=== PATIENT | female | born 1945 | race Caucasian/White ===

== ENCOUNTER 2016-06-20 07:10 | Inpatient (IN) | payer OTHER ==
[2016-06-02 09:28] VITALS: BMI 40.0
--- NOTE | 2016-06-02 10:08 | PAT Medication Instructions ---
Service Date Jun 02, 2016. Current Home Medication List Amlodipine (Norvasc), 2.5 MG PO QAM Aspirin (Aspirin Ec), 81 MG PO QPM Atorvastatin (Atorvastatin Calcium), 40 MG PO QPM Biotin (Biotin 5000), 2 CAP PO QPM Chlorthalidone (Chlorthalidone), 25 MG PO QAM Cholecalciferol (Vitamin D3), 1 TAB PO QPM Levothyroxine Sodium (Levothyroxine Sodium), 112 MG PO DAILYBB Lisinopril (Prinivil), 40 MG PO QAM Magnesium Oxide (Mag-Ox), 400 MG PO QPM Metoprolol Succinate (Toprol Xl), 25 MG PO HS Metoprolol Succinate (Toprol Xl), 50 MG PO QAM Multivitamin (Multivitamin), 1 TAB PO QPM Nitroglycerin (Nitrostat), 0.4 MG UT PRN Pyridoxine (Vitamin B6), 100 MG PO QPM Sennosides-Docusate Sodium (Stool Softener), 1 TAB PO DAILY PRN for Constipation Venlafaxine Hcl (Effexor), 150 MG PO QAM [Lovaza], 4 TAB PO QPM Medication Instructions For Your Scheduled Surgery - Instructions to be given by surgeon/Cardiology: Aspirin (Aspirin Ec), 81 MG PO QPM - Continue as directed: Nitroglycerin (Nitrostat), 0.4 MG UT PRN - Hold the following medications 2 weeks prior to surgery: Biotin (Biotin 5000), 2 CAP PO QPM - Hold the following medications the morning of surgery: Chlorthalidone (Chlorthalidone), 25 MG PO QAM Lisinopril (Prinivil), 40 MG PO QAM Sennosides-Docusate Sodium (Stool Softener), 1 TAB PO DAILY PRN for Constipation - Take the following medications the morning of surgery with a sip of water OTHERWISE NOTHING TO EAT OR DRINK AFTER MIDNIGHT: Amlodipine (Norvasc), 2.5 MG PO QAM Levothyroxine Sodium (Levothyroxine Sodium), 112 MG PO DAILY Metoprolol Succinate (Toprol Xl), 50 MG PO QAM Venlafaxine Hcl (Effexor), 150 MG PO QAM - Take the following medications as scheduled the night before surgery: Magnesium Oxide (Mag-Ox), 400 MG PO QPM Atorvastatin (Atorvastatin Calcium), 40 MG PO QPM Metoprolol Succinate (Toprol Xl), 25 MG PO HS Multivitamin (Multivitamin), 1 TAB PO QPM Pyridoxine (Vitamin B6), 100 MG PO QPM Cholecalciferol (Vitamin D3), 1 TAB PO QPM [Lovaza], 4 TAB PO QPM If you have any questions please call us at [phone] or [phone] or [phone]
[2016-06-02 10:34] LABS: BASO % 0.7 %; BASO ABS # 0.04 K/uL (0-0.2); COMPLETE YES; EOS % 0.2 %; HEMATOCRIT 38.4 % (37-47); IG% 0.2 %; LYMPH % 38.1 %; LYMPH ABS # 2.14 K/uL (1.2-3.4); MEAN CELL VOLUME 91.2 fL (80-100); MEAN CORPUSCULAR HEMOGLOBIN 31.4 pg (25-34); MEAN CORPUSCULAR HGB CONC 34.4 g/dl (32-36); MEAN PLATELET VOLUME 10.3 fL (7.4-10.4); MONO % 8.9 %; NEUT % 51.9 %; PLATELET COUNT 228 K/uL (130-400); RED BLOOD COUNT 4.21 M/uL (4.2-5.4); WHITE BLOOD COUNT 5.62 K/uL (4.8-10.8)
[2016-06-02 10:44] LABS: URINE APPEARANCE CLEAR (CLEAR); URINE BILIRUBIN NEG (NEG); URINE COLOR YELLOW; URINE NITRITE NEG (NEG); URINE PH 5.5 (4.5-7.5); URINE SPECIFIC GRAVITY 1.015 (1.000-1.030); UROBILINOGEN NEG (NEG)
[2016-06-02 10:46] LABS: MANUAL MICROSCOPIC REQUIRED? NO; REVIEW REQ? NO
[2016-06-02 11:00] LABS: BUN/CREATININE RATIO 25.3 (10-20); CALCIUM 9.5 mg/dl (8.5-10.1); CREATININE 0.91 mg/dl (0.60-1.20); POTASSIUM 4.3 mmol/L (3.5-5.1)
--- NOTE | 2016-06-02 11:07 | DIAGNOSTIC IMAGING REPORT ---
TWO VIEW CHEST CLINICAL HISTORY: Preoperative examination. FINDINGS: PA and lateral chest radiographs are compared to study dated 10/13/2011. The heart is top normal for projection and there is atherosclerotic calcification of the thoracic aorta. Chronic interstitial thickening is similar to previous. No airspace consolidation or pleural effusion is identified. There is no pneumothorax. The skeletal structures are osteopenic. Degenerative change and scoliosis are noted in the thoracic spine. There is hyperkyphosis with evidence of DISH. Fusion hardware is present in the upper lumbar region. IMPRESSION: There is no active disease in the chest. Electronically signed by: Manoj Burns M.D. 06/02/2016 11:05 AM Dictated Date/Time: 06/02/2016 11:04 AM
[2016-06-20] VITALS (11 sets, daily range): BP systolic 119–163; BP diastolic 73–85; PULSE 65–94; TEMP 36.3–36.7; O2SAT 93–100; Ht 149.9 cm; Wt 91.2 kg
[~2016-06-20] VITALS: Ht 149.9 cm; Wt 91.2 kg
[~2016-06-20 07:10] MED LIST: AMLO2.5T PO; ASPI81TA28 PO; BIOTCAP2 PO; CEFAZOLIN 2000 MG/60 ML D5W IV SCH; CHOL20007 PO; CeleBREX 200 MG CAP PO SCH; DEXAMETHASONE SOD INJ 4 MG/ML VIAL ONE; EFF75 PO; FENTANYL CITRATE INJ 50 MCG/1 ML 2 ML VIAL ONE; HYG25 PO; LACTATED RINGER'S 1000ML 1,000 ML IV SCH; LEVO112T4 PO; LIDOCAINE HCL 2% 2 ML VIAL (20MG/ML) ONE; LISI40TA PO; LOVAZA PO; LPT40 PO; MAGN400T6 PO; METO1TAB31 PO; METO1TAB66 PO; MIDAZOLAM HCL 1 MG/ML 2ML VIAL ONE; MULT-506 PO; NTRGSL/4 UT; ONDANSETRON INJ 2 MG/ML 2 ML VIAL ONE; PREGABALIN 75 MG CAP PO SCH; PROPOFOL IV EMULSION 10 MG/ML 100 ML VIAL IV ONE; PROPOFOL IV EMULSION 10 MG/ML 20 ML VIAL IV ONE; PYRI100T4 PO; REMIFENTANIL 1 MG VIAL ONE; SENNTAB23 PO; SUCCINYLCHOLINE CHLORIDE 20 MG/ML 10 ML VIAL IV ONE
[2016-06-20] MEDS ORDERED: ONDANSETRON INJ 2 MG/ML 2 ML VIAL IV PRN ×2 (08:15→12:00)
[2016-06-20] MEDS ORDERED: EpHEDrine SULFATE INJ 50 MG/ML AMP IV PRN (08:15)
[2016-06-20] MEDS ORDERED: HYDROmorphone INJ 1 MG/ML SYR IV PRN (08:15)
[2016-06-20] MEDS ORDERED: ATROPINE SULFATE 0.1 MG/ML 5ML SYR IV PRN (08:15)
--- NOTE | 2016-06-20 09:37 | History and Physical ---
History & Physical Date Jun 20, 2016. Chief Complaint neck pain and BUE numbness and weakness History of Present Illness The patient is a 70 year old female with complaints of above for years that have progressed. She reports numbness in LUE and weakness and loss of fine motor control in RUE. She denies incontinence. She was not a canidate for injections. Her MRI shows severe spinal stenosis C3-6 without myelomalacia. Past Medical/Surgical History Medical Problems: (1) Acute non-ST segment elevation myocardial infarction (2) Benign hypertension (3) Carotid artery stenosis (4) Cerebrovascular disease (5) Coronary artery disease-DSE 09/19 negative for ischemia-moderate risk per cards (6) Gastroesophageal reflux disease (7) History of adenomatous polyp of colon (8) Hyperlipidemia (9) Hypothyroidism (10) Migraine (11) Osteoarthritis Surgical Problems: (1) Status post cardiac catheterization (2) Status post cataract extraction (3) Status post coronary artery stent placement (4) Status post hysterectomy Additional History Hepatic Disease: No Endocrine Disorder: No Kidney Disease: No Hypertension: Yes Heart Disease: Yes Bleeding Tendencies: No Infectious Diseases: No Allergies Coded Allergies: Chlorhexidine (Verified Allergy, Intermediate, SEVERE RED AND BURNING SKIN , 06/20/16) Amitriptyline (Verified Allergy, Unknown, PT UNSURE OF RXN, 06/20/16) Dipyridamole (Verified Allergy, Unknown, PT DOESN'T KNOW WHAT HAPPENED, ) NSAIDs (Verified Adverse Reaction, Intermediate, 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, 06/20/16) Propoxyphene (Verified Adverse Reaction, Intermediate, GI UPSET, "DISORIENTED", 06/20/16) Amoxicillin (Verified Adverse Reaction, Mild, VOMITING, GI UPSET, 06/20/16) Baclofen (Verified Adverse Reaction, Mild, disoriented nausea, 06/20/16) Clavulanic Acid (Verified Adverse Reaction, Mild, VOMITING, GI UPSET, 06/20) Diclofenac (Verified Adverse Reaction, Mild, disoriented nausea, 06/20/16) Home Medications Scheduled Amlodipine (Norvasc), 2.5 MG PO QAM Aspirin (Aspirin Ec), 81 MG PO QPM Atorvastatin (Atorvastatin Calcium), 40 MG PO QPM Biotin (Biotin 5000), 2 CAP PO QPM Chlorthalidone (Chlorthalidone), 25 MG PO QAM Cholecalciferol (Vitamin D3), 1 TAB PO QPM Levothyroxine Sodium (Levothyroxine Sodium), 112 MCG PO DAILYBB Lisinopril (Prinivil), 40 MG PO QAM Magnesium Oxide (Mag-Ox), 400 MG PO QPM Metoprolol Succinate (Toprol Xl), 25 MG PO HS Metoprolol Succinate (Toprol Xl), 50 MG PO QAM Multivitamin (Multivitamin), 1 TAB PO QPM Nitroglycerin (Nitrostat), 0.4 MG UT PRN Pyridoxine (Vitamin B6), 100 MG PO QPM Venlafaxine Hcl (Effexor), 150 MG PO QAM [Lovaza], 4 TAB PO QPM Scheduled PRN Sennosides-Docusate Sodium (Stool Softener), 1 TAB PO DAILY PRN for Constipation Physical Examination Skin: warm/dry Eyes: normal inspection, sclerae normal ENT: normal ENT inspection Head: normocephalic, atraumatic Neck: supple, trachea midline Respiratory/Chest: lungs clear, no respiratory distress Cardiovascular: regular rate, rhythm Extremities: normal inspection Genitourinary - Female: normal pelvic exam Neurologic/Psych: no motor/sensory deficits, alert, normal reflexes, oriented x 3 Diagnosis cervical stenosis C3-6 Plan of Treatment C3-6 decompression/fusion
[2016-06-20] MEDS ORDERED: THROMBIN 5000 UNITS KIT ONE ×2 (09:43→09:47)
[2016-06-20] MEDS ORDERED: BACITRACIN 50000 UNIT VIAL ONE ×2 (09:43→09:47)
[2016-06-20] MEDS ORDERED: THROMBIN FOR SOLN 20000 UNIT KIT ONE ×2 (09:47→09:48)
[2016-06-20] MEDS ORDERED: BUPIVACAINE/EPINEPHRINE 0.5% MPF 1:200,000 30 ML VIAL ONE (09:47)
[2016-06-20] MEDS ORDERED: HEPARIN SOD (PORCINE) 1000 UNIT/ML 10 ML VIAL ONE (09:47)
[2016-06-20] MEDS ORDERED: OXYC-57 PO (09:47)
--- NOTE | 2016-06-20 09:48 | Discharge Instructions ---
Discharge Instructions Admission Reason for Admission: Cervical Spinal Stenosis Discharge Discharge Diagnosis / Problem: Cervical Stenosis Discharge Goals Goal(s): Decrease discomfort, Improve function, Increase independence Activity Recommendations Activity Limitations: as noted below Lifting Limitations: no more than 5 pounds Exercise/Sports Limitations: until after follow-up appointment May Resume Sexual Activity: after follow-up appointment Shower/Bathe: may shower/bathe in 3 days . Instructions / Follow-Up Instructions / Follow-Up ACTIVITY RECOMMENDATIONS: SELF CARE INSTRUCTIONS AFTER CERVICAL FUSIONS 1. No smoking. Smoking drastically decreases the chance of a solid fusion. 2. No bending, lifting more than 5 pounds, or twisting (roll like a log when turning in bed). 3. You may shower 3 days after surgery. Thoroughly dry wound. Do not soak in the tub. 4. Cervical collar: Must be worn at all times including sleeping. You may remove the brace only to bath, eat and if you are sitting in a recliner. 5. Please walk as much as you can for exercise. Gradually increase the distance that you walk as your endurance increases. SPECIAL CARE INSTRUCTIONS: VERY IMPORTANT TO READ AND REVIEW A. Do not take any anti-inflammatory medications (i.e. Indocin, Advil, Aspirin, Naprosyn, Aleve, Motrin, etc.) as these may inhibit the chance of a solid fusion. Tylenol is okay to take. B. Your surgical incision has been closed with a cosmetic suture under the skin that will dissolve in about 6 weeks. In 14 days, you can use a pair of clean scissors and cut the suture that is left outside of the skin at the ends of your incision. C. Complications are uncommon, but please contact us if you have any signs or symptoms of: 1. wound infection (fever higher than 102.5 degrees F, redness, separation of wound, drainage, or increasing pain from the incision) 2. blood clots in legs (pain, swelling, redness and warmth in legs) 3. urinary tract infection (fever higher than 102.5 degrees, burning upon urination or increased frequency of urination) 4. nerve problems (inability to walk on your toes or heels, numbness, loss of bowel or bladder control) 5. any other symptoms that concern you. D. Please call the office at if you have any concerns or questions about your operation or recovery. MANAGING PAIN AFTER SPINAL SURGERY 1. Narcotic medication is intended for short-term use and will be provided for surgical pain. Surgical pain usually lasts for a period of 4-6 weeks. Narcotic medication includes Percocet, Vicodin, Darvocet, Tylenol #3 or Lortab. 2. Longer-term pain is more appropriately treated with non-narcotic medication such as Tylenol ES. 3. Muscle spasm is not appropriately treated with narcotics. Muscle relaxers such as Soma, Flexeril or Skelaxin can be used along with Tylenol ES. 4. Remember that we all live with some "aches and pains". This is not unusual or uncommon after an injury or as we get older. 5. We will provide appropriate medication within the normal guidelines of their prescribed use. We will also be very cautious and aware of potential abuse and extended duration of patients' medication needs. 6. Please allow 2-3 days to process refills. Prescriptions will not be mailed but must be picked up at the office. FOLLOW UP VISIT: Keep your scheduled follow-up appointment. Any questions, please call the office at . Current Hospital Diet Patient's current hospital diet: Discharge Diet Recommended Diet: Regular Diet Pending Studies Studies pending at discharge: no Medical Emergencies . Who to Call and When: Medical Emergencies: If at any time you feel your situation is an emergency, please call 911 immediately. . Non-Emergent Contact Non-Emergency issues call your: Surgeon Call Non-Emergent contact if: temperature is above 101, your pain is not controlled, your pain is worsening, your pain is unusual for you, your pain is concerning you, wound has increased drainage, wound has increased redness, wound has increased pain, you have any medication questions . "Provider Documentation" section prepared by Ariel Pascal. VTE Core Measure Inpt VTE Proph given/why not?: Sonali Alanis
[2016-06-20] MEDS ORDERED: PHENYLEPHRINE 100MCG/ML 5ML SYR ONE (10:47)
[2016-06-20] MEDS ORDERED: ONDANSETRON INJ 2 MG/ML 2 ML VIAL ONE (11:01)
[2016-06-20] MEDS ORDERED: DEXAMETHASONE SOD INJ 4 MG/ML VIAL ONE (11:01)
[2016-06-20] MEDS ORDERED: PROPOFOL IV EMULSION 10 MG/ML 20 ML VIAL IV ONE (11:09)
[2016-06-20] MEDS ORDERED: PHENYLEPHRINE HCL INJ 10 MG/ML VIAL ONE (11:18)
[2016-06-20] MEDS ORDERED: FLOSEAL HEMOSTATIC MATRIX 5ML TOP ONE (11:43)
[2016-06-20] MEDS ORDERED: BETADINE OINTMENT (PACKETS) TOP ONE (11:43)
[2016-06-20] MEDS ORDERED: FENTANYL CITRATE INJ 50 MCG/1 ML 2 ML VIAL ONE (11:47)
[2016-06-20] MEDS ORDERED: SODIUM CHLORIDE 0.9% 1000ML 1,000 ML IV SCH (11:51)
--- NOTE | 2016-06-20 11:51 | [facility] Post Operative Brief Note ---
Immediate Operative Summary Operative Date Jun 20, 2016. Pre-Operative Diagnosis Cervical stenosis C3-6 Post-Operative Diagnosis Same as pre-operative diagnosis Procedure(s) Performed C3-C6 Posterior Cervical Decompression and Instrumented Fusion Surgeon Dr. Oneal Segovia Final Assembly Worker Surgeon(s) Ariel Pascal PA-C Estimated Blood Loss 100ml Findings dict Specimens None per surgeon
[2016-06-20] MEDS ORDERED: ACETAMINOPHEN IV 100 ML IV PRN (12:00)
[2016-06-20] MEDS ORDERED: ALUMINUM/MAGNESIUM SUSP 30 ML UDC PO PRN (12:00)
[2016-06-20] MEDS ORDERED: LORAZEPAM 0.5 MG TAB PO PRN (12:00)
[2016-06-20] MEDS ORDERED: PROMETHAZINE HCL INJ 12.5 MG in SODIUM CHLORIDE 0.9% 50ML 50 ML IV PRN (12:00)
[2016-06-20] MEDS ORDERED: LORAZEPAM INJ 0.5 MG in SYRINGE 0 ML IV PRN (12:00)
[2016-06-20] MEDS ORDERED: NALOXONE HCL 0.4 MG/1 ML VIAL/CARP IV PRN ×2 (12:00)
[2016-06-20] MEDS ORDERED: NITROGLYCERIN 0.4 MG SL PER TAB CHARGE UT PRN (12:00)
[2016-06-20] MEDS ORDERED: FAMOTIDINE 20 MG TAB PO PRN (12:00)
[2016-06-20] MEDS ORDERED: MoRPHine SULFATE 1 MG/ML 50 ML PCA CASS ONE (12:15)
[2016-06-20] MEDS: FENTANYL CITRATE INJ 50 MCG/1 ML 2 ML VIAL IV PRN ×4 (12:34→12:49)
[2016-06-20] MEDS ORDERED: HYDROmorphone INJ 2 MG/ML SYR/VIAL ONE (12:46)
[2016-06-20] MEDS ORDERED: DiphenhydrAMINE HCL 50 MG/ML VIAL ONE (12:53)
[2016-06-20] MEDS ORDERED: DiphenhydrAMINE HCL 50 MG/ML VIAL IV PRN (13:00)
[2016-06-20] MEDS ORDERED: ROCURONIUM BROMIDE 10 MG/ML 5 ML VIAL ONE (13:25)
--- NOTE | 2016-06-20 13:36 | OPERATIVE REPORT ---
DATE OF OPERATION: 06/20/2016 PREOPERATIVE DIAGNOSES: 1. Cervical stenosis C3-C6. 2. Cervical myelopathy. POSTOPERATIVE DIAGNOSES: Same. PROCEDURES: 1. C3, C4, C5 and C6 laminectomies. 2. Segmental lateral mass screw instrumentation -- bilateral C3, C4, C5 and C6 with K2M posterior cervical system. 3. Posterior fusion C3-C6 -- bilateral with Infuse BMP on a collagen sponge, tricalcium phosphate, local bone, and bone putty. SURGEON: Dr. Segovia. SALESPERSON JEWELRY: Ariel Pascal PA-C. Please note he participated in all portions of the procedure and was critical for performance of the procedure, participated in positioning, prepping, draping, retraction and wound closure. ANESTHESIA: General endotracheal anesthesia. COMPLICATIONS: None. ESTIMATED BLOOD LOSS: 100 mL. PROCEDURE IN DETAIL: After identification of patient and operative level, she was brought to the OR where she underwent induction of general anesthesia. She was then positioned prone on [facility]oval OR table with all bony prominences well padded. The Dunaway tongs were applied prior to positioning, using skull pins. We then obtained spinal cord monitoring signals, made sure all bony prominences were well padded. The posterior neck was sterilely prepped and draped in the usual fashion. Antibiotics were administered. Time-out was performed. Level was confirmed and skin incision was infiltrated with Marcaine with epinephrine. I made a skin incision from spinous process of C2-C7. I accomplished posterior exposure, placed Gelpi retractors and confirmed level with fluoroscopy. I marked the operative levels and did a midline decompression with creation of a trough, the edges of the lamina bilaterally from C3-C6 and then removal of the posterior elements to clean the spinous process, lamina and ligamentum flavum from C3-C6 en bloc. After completion of central decompression, I decompressed any remaining lateral recess and foraminal stenosis and then applied FloSeal for hemostasis. I then drilled menhaden vessel pilot holes for lateral mass screws bilaterally at C3, C4, C5 and C6, tapped the holes and confirmed bony anatomy was intact with a ball tipped feeler. I then placed 12 mm lateral mass screws bilaterally from C3-C6. I then decorticated the facets posteriorly with a high speed bur bilaterally from C3-C6 and then packed the facets with bone grafts as above. I did irrigate prior to bone grafting. Rods and end caps were applied and final tightened and cross link was placed. Obtained final x-rays and closed in layered fashion. All sponge and needle counts were correct at the end of the case. I attest to the content of the Intraoperative Record and any orders documented therein. Any exceptio ns are noted below.
--- NOTE | 2016-06-20 13:48 | DIAGNOSTIC IMAGING REPORT ---
INTRAOPERATIVE RADIOGRAPHS CLINICAL HISTORY: C3-C6 spinal fusion. Fluoroscopy time: 7 seconds. FINDINGS: 3 spot fluoroscopic views of the cervical spine are presented. An endotracheal tube is in place. There are changes from laminectomy and posterior fusion seen from C3 to C6. Interpedicular screws are present at all levels. Orthopedic hardware appears intact. A surgical drain and skin clips are noted on the final image. IMPRESSION: Intraoperative images from C3 -C6 spinal fusion as above. Electronically signed by: Manoj Burns M.D. 06/20/2016 1:47 PM Dictated Date/Time: 06/20/2016 1:46 PM
--- NOTE | 2016-06-20 13:54 | Anesthesiology Progress Note ---
Anesthesia Post Op Note Date & Time Jun 20, 2016 at 13:53 Vital Signs Pain Intensity: 8 Vital Signs Past 12 Hours Date Time Temp Pulse Resp B/P Pulse Ox O2 Delivery O2 Flow Rate FiO2 06/20/16 13:30 36.6 82 18 176/84 100 Nasal Cannula 4 06/20/16 13:20 82 16 173/77 100 Nasal Cannula 4 06/20/16 13:10 83 15 159/83 100 Nasal Cannula 4 06/20/16 13:00 84 14 177/84 98 Nasal Cannula 4 06/20/16 12:50 84 17 176/79 100 Mask 10 Arterial Line 06/20/16 12:40 90 13 160/68 100 Mask 10 06/20/16 12:30 94 17 186/73 99 Mask 10 204/80 06/20/16 12:20 89 19 158/81 99 Mask 10 206/73 06/20/16 12:13 36.4 88 18 137/96 99 Mask 10 06/20/16 08:22 36.4 65 20 163/84 96 Room Air Notes Mental Status: alert / awake / arousable, participated in evaluation Pt Amnestic to Procedure: Yes Nausea / Vomiting: adequately controlled Pain: adequately controlled, improving with treatment Airway Patency, RR, SpO2: stable & adequate BP & HR: stable & adequate Hydration State: stable & adequate Anesthetic Complications: no major complications apparent Patient with mild improvement in pain with BOX CAR CHECKER but appears somnolent so hesitated to increase dose at this time. Otherwise states she is doing well and plan for transfer to floor for continued recovery from her procedure.
[2016-06-20] MEDS: MoRPHine SULFATE 1 MG/ML 50 ML PCA CASS IV PRN ×2 (14:12→18:47)
[2016-06-20] MEDS: SODIUM CHLORIDE 0.9% 1000ML 1,000 ML IV SCH (14:52)
[2016-06-20] MEDS ORDERED: VENL150C56 PO (15:01)
[2016-06-20] MEDS ORDERED: DEXTROSE 50% 50 ML SYR IV PRN (16:15)
[2016-06-20] MEDS ORDERED: GLUCOSE 40% GEL 15 GM TUBE PO PRN (16:15)
[2016-06-20] MEDS ORDERED: GLUCOSE 10 TABS/TUBE PO PRN (16:15)
[2016-06-20] MEDS ORDERED: GLUCAGON FOR INJ 1 MG VIAL SQ PRN (16:15)
--- NOTE | 2016-06-20 16:53 | Medical Consult ---
Consultation Date of Consultation: Jun 20, 2016. Attending Physician: Oneal Segovia M.D. Reason for Consultation: Medical mgmt History of Present Illness This is a 70 y/o female with PMHx of diet controlled DM 2, CAD s/p stents, H/O CVA, HTN, Dyslipidemia and other problems as outlined below who presents POD 0 s /p cervical decompression performed by Dr. Segovia. Pt is currently c/o 10/ 10neck pain. She denies any radiation but does notice that her R hand has been shaking. Otherwise patient is without complaints. Pt denies visual changes, slurred speech, unilateral weakness, chest pain, SOB, abd pain, N/V, bowel or bladder issues, LE edema, calf pain, lightheadedness/dizziness. Past Medical/Surgical History Medical Problems: (1) Acute non-ST segment elevation myocardial infarction Status: Resolved (2) Benign hypertension Status: Chronic (3) Carotid artery stenosis Status: Chronic (4) Cerebrovascular disease Permanent Comment: old lacunar strokes on imaging Status: Chronic (5) Coronary artery disease Status: Chronic (6) Gastroesophageal reflux disease Status: Chronic (7) History of adenomatous polyp of colon Status: Chronic (8) Hyperlipidemia Status: Chronic (9) Hypothyroidism Status: Chronic (10) Migraine Status: Chronic (11) Osteoarthritis Status: Chronic Surgical Problems: (1) Status post cardiac catheterization Status: Chronic (2) Status post cataract extraction Status: Chronic (3) Status post coronary artery stent placement Status: Chronic (4) Status post hysterectomy Status: Chronic Family History Cancer Diabetes mellitus Heart disease Hypertension Social History Smoking Status: Former Smoker (40 pack year history; quit 2009) Alcohol Use: none Drug Use: none Marital Status: Housing Status: lives with family Occupation Status: retired Allergies Coded Allergies: Chlorhexidine (Verified Allergy, Intermediate, SEVERE RED AND BURNING SKIN , 06/20/16) Amitriptyline (Verified Allergy, Unknown, PT UNSURE OF RXN, 06/20/16) Dipyridamole (Verified Allergy, Unknown, PT DOESN'T KNOW WHAT HAPPENED, ) NSAIDs (Verified Adverse Reaction, Intermediate, 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, 06/20/16) Propoxyphene (Verified Adverse Reaction, Intermediate, GI UPSET, "DISORIENTED", 06/20/16) Amoxicillin (Verified Adverse Reaction, Mild, VOMITING, GI UPSET, 06/20/16) Baclofen (Verified Adverse Reaction, Mild, disoriented nausea, 06/20/16) Clavulanic Acid (Verified Adverse Reaction, Mild, VOMITING, GI UPSET, 06/20) Diclofenac (Verified Adverse Reaction, Mild, disoriented nausea, 06/20/16) Home Medications Active Percocet 5MG/325MG (Oxycodone/Acetaminophen) Tab 1-2 Tablets PO Q4H PRN Reported Effexor Extended Rel (Venlafaxine Hcl) 150 Mg Cap 150 Mg PO DAILY Multivitamin (Multivitamins) Tab 1 Tab PO QPM Vitamin D3 (Cholecalciferol) 2,000 Unit Tab 1 Tab PO QPM 90 Days Vitamin B6 (Pyridoxine HCl) 100 Mg Tab 100 Mg PO QPM Biotin 5000 (Biotin) 5 Mg Cap 2 Cap PO QPM Stool Softener (Sennosides-Docusate Sodium) 1 Tab Tab 1 Tab PO DAILY PRN Aspirin Ec (Aspirin) 81 Mg Tab 81 Mg PO QPM [Lovaza] 4 Tab PO QPM Levothyroxine Sodium 112 Mcg Tab 112 Mcg PO DAILYBB Toprol Xl (Metoprolol Succinate) 50 Mg Tab 50 Mg PO QAM Chlorthalidone 25 Mg Tab 25 Mg PO QAM Norvasc (Amlodipine Besylate) 2.5 Mg Tab 2.5 Mg PO QAM Atorvastatin Calcium (Atorvastatin) 40 Mg Tab 40 Mg PO QPM Toprol Xl (Metoprolol Succinate) 25 Mg Tab 25 Mg PO HS Nitrostat (Nitroglycerin) 0.4 Mg Tab 0.4 Mg UT PRN Mag-Ox (Magnesium Oxide) 400 Mg Tab 400 Mg PO QPM Prinivil (Lisinopril) 40 Mg Tab 40 Mg PO QAM Current Inpatient Medications Current Inpatient Medications Medications (Trade) Dose Ordered Sig/Kaila Route Start Time Stop Time Status Last Admin Dose Admin Lactated Ringer's 1,000 ml @ 15 mls/hr Q24H IV 06/20/16 06:00 06/21/16 05:59 06/20/16 08:50 15 MLS/HR Cefazolin Sodium (Ancef 2000mg/60 ml D5W) 60 ml @ 100 mls/hr PREOP IV 06/20/16 06:00 06/20/16 18:00 06/20/16 10:00 100 MLS/HR Celecoxib (CeleBREX CAP) 200 mg PREOP PO 06/20/16 06:00 06/20/16 18:00 Pregabalin (Lyrica Cap) 75 mg PREOP PO 06/20/16 06:00 06/20/16 18:00 06/20/16 08:57 75 MG Amlodipine Besylate (Norvasc Tab) 2.5 mg QAM PO 06/21/16 09:00 07/21/16 08:59 Aspirin (Ecotrin Tab) 81 mg QPM PO 06/20/16 21:00 07/20/16 20:59 Atorvastatin Calcium (Lipitor Tab) 40 mg QPM PO 06/20/16 21:00 07/20/16 20:59 Chlorthalidone (Hygroton Tab) 25 mg QAM PO 06/21/16 09:00 07/21/16 08:59 Levothyroxine Sodium (Synthroid Tab) 112 mcg DAILYBB PO 06/21/16 06:00 07/21/16 06:59 Lisinopril (Zestril Tab) 40 mg QAM PO 06/21/16 09:00 07/21/16 08:59 Magnesium Oxide (Mag-Ox Tab) 400 mg QPM PO 06/20/16 21:00 07/20/16 20:59 Metoprolol Succinate (Toprol Xl Tab) 25 mg HS PO 06/20/16 21:00 07/20/16 20:59 Metoprolol Succinate (Toprol Xl Tab) 50 mg QAM PO 06/21/16 09:00 07/21/16 08:59 Nitroglycerin (Nitrostat Tab) 0.4 mg UD PRN UT 06/20/16 12:00 07/20/16 11:59 Venlafaxine HCl 150 mg 150 mg QAM PO 06/21/16 09:00 07/21/16 08:59 Promethazine HCl/ Sodium Chloride (Phenergan Inj/ Nss 50ml) 50.5 ml @ 202 mls/hr Q6H PRN IV 06/20/16 12:00 07/20/16 11:59 Ondansetron HCl (Zofran Inj) 4 mg Q6H PRN IV 06/20/16 12:00 07/20/16 11:59 Lorazepam 0.5 mg 0.5 mg Q8H PRN PO 06/20/16 12:00 07/20/16 11:59 Lorazepam 0.5 mg/ Syringe 0.25 ml @ 1 mls/min Q8H PRN IV 06/20/16 12:00 07/20/16 11:59 Sodium Chloride (Nss 1000ml) 1,000 ml @ 75 mls/hr [id number] IV 06/20/16 11:51 07/20/16 11:50 06/20/16 14:52 75 MLS/HR Polyethylene (Miralax Powder Packet) 17 gm Q6 PO 06/22/16 06:00 07/22/16 05:59 Hydromorphone HCl (Dilaudid Inj) 0.5 mg Q3H PRN IV 06/21/16 06:00 07/05/16 05:59 Oxycodone HCl 5-10mg prn moderate to sev... Q4H PRN PO 06/21/16 06:00 07/05/16 05:59 Cefazolin Sodium 2000 mg/Dextrose 60 ml @ 100 mls/hr Q8H IV 06/20/16 18:00 06/21/16 02:35 Acetaminophen (Ofirmev Iv) 100 ml @ 400 mls/hr Q8H PRN IV 06/20/16 12:00 07/20/16 11:59 Naloxone HCl (Narcan Inj) 0.1 mg Q5M PRN IV 06/20/16 12:00 07/20/16 11:59 Senna/Docusate Sodium (Senokot S Tab) 2 tab HS PO 06/20/16 21:00 07/20/16 20:59 Al Hydroxide/Mg Hydroxide (Maalox Susp) 30 ml Q6H PRN PO 06/20/16 12:00 07/20/16 11:59 Famotidine (Pepcid Tab) 20 mg Q12 PRN PO 06/20/16 12:00 07/20/16 11:59 Miscellaneous Information (Discontinue SCOUTS) 1 ea TODAY@0600 N/A 06/21/16 06:00 06/21/16 06:01 Naloxone HCl (Narcan Inj) 0.1 mg Q5M PRN IV 06/20/16 12:00 06/21/16 06:00 Morphine Sulfate 50 mg 50 mg PRN PRN IV 06/20/16 12:00 06/21/16 06:00 06/20/16 14:12 50 MG Sodium Chloride (Nss 1000ml) 1,000 ml @ 15 mls/hr Q24H IV 06/20/16 11:51 06/21/16 06:00 Hydromorphone HCl (Dilaudid Inj) 1 mg Q3H PRN IV 06/21/16 06:00 07/05/16 05:59 Diphenhydramine HCl (Benadryl Inj) 25 mg Q6H PRN IV 06/20/16 13:00 06/20/16 18:00 Review of Systems Constitutional: No chills, No fatigue, No fever, No sweats, No weakness Eyes: No worsening of vision ENT: No hearing loss Respiratory: No cough, No shortness of breath Cardiovascular: No chest pain, No claudication, No edema Abdomen: No constipation, No diarrhea, No nausea, No pain, No vomiting Musculoskeletal: No calf pain, No swelling Genitourinary - Female: No dysuria Neurologic: No weakness Psychiatric: No depression symptoms Endocrine: No fatigue Hematologic / Lymphatic: No abnormal bleeding/bruising Integumentary: No new/changing skin lesions Physical Exam Date Time Temp Pulse Resp B/P Pulse Ox O2 Delivery O2 Flow Rate FiO2 06/20/16 15:05 36.6 87 18 154/83 100 Nasal Cannula 4.0 06/20/16 15:02 100 Nasal Cannula 4.0 06/20/16 14:49 36.3 79 19 154/83 100 Nasal Cannula 4.0 06/20/16 14:10 100 Nasal Cannula 4.0 06/20/16 14:10 36.4 81 16 159/82 100 Nasal Cannula 4.0 06/20/16 14:00 77 18 165/83 99 Nasal Cannula 4 06/20/16 13:45 78 16 160/83 99 Nasal Cannula 4 06/20/16 13:30 36.6 82 18 176/84 100 Nasal Cannula 4 06/20/16 13:20 82 16 173/77 100 Nasal Cannula 4 06/20/16 13:10 83 15 159/83 100 Nasal Cannula 4 06/20/16 13:00 84 14 177/84 98 Nasal Cannula 4 06/20/16 12:50 84 17 176/79 100 Mask 10 Arterial Line 06/20/16 12:40 90 13 160/68 100 Mask 10 06/20/16 12:30 94 17 186/73 99 Mask 10 204/80 06/20/16 12:20 89 19 158/81 99 Mask 10 206/73 06/20/16 12:13 36.4 88 18 137/96 99 Mask 10 06/20/16 08:22 36.4 65 20 163/84 96 Room Air General Appearance: WD/WN, no apparent distress, + pertinent finding (Pt is sitting up in bed eating lunch on my arrival ) Head: normocephalic, atraumatic Eyes: normal inspection ENT: hearing grossly normal Neck: supple, + pertinent finding (surgical dressing in place over cervical spine with 1 drain noted containing blood) Respiratory/Chest: chest non-tender, lungs clear (anterior auscultation ), normal breath sounds, no respiratory distress Cardiovascular: regular rate, rhythm, no edema, no murmur Abdomen/GI: normal bowel sounds, non tender, soft Back: normal inspection Extremities/Musculoskelatal: normal inspection, no calf tenderness, no pedal edema Neurologic/Psych: alert, normal mood/affect, oriented x 3 Skin: normal color, warm/dry Laboratory Results Last 24 Hours Test 06/20/16 07:57 06/20/16 12:14 Bedside Glucose 149 mg/dl 129 mg/dl Assessment & Plan CERVICAL STENOSIS S/P DECOMPRESSION -POD 0; surgery performed by Dr. 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 -monitor for acute blood loss with daily H&H -pt encouraged to utilize spirometry to prevent post-op infection -PT/OT -activity and wound care orders per ortho protocol -will continue to follow DIET-CONTROLLED DM 2 -last A1C 6.7; repeat in AM -diabetic diet -coverage with ISS -monitor BSG AC HS CAD -s/p coronary stent placement -cont ASA, BB and statin -pt denies acute anginal sxs H/O CVA -"years ago"; no residual deficits -cont ASA HYPOTHYROIDISM -cont levothyroxine GERD -cont PPI HTN -BP stable -cont chlorthalidone, metoprolol, lisinopril, Norvasc -monitor DYSLIPIDEMIA -cont statin DVT PROPHYLAXIS -per ortho protocol CODE STATUS -FULL CODE status DISPO -per ortho. Pt seen in collaboration with Dr. Palepu. Agree with above note. Briefly 70F is s/p cervical spine surgery. Tolerated procedure fine. Complains of pain at surgery site which is getting better. Complains of shaking in both hands. resting comfortably and eating dinner. Speech is fine. No chest pain or sob or nausea. 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 CAd continue home meds seems stable
[2016-06-20] MEDS: CEFAZOLIN IV 2,000 MG in DEXTROSE 5% 50ML 50 ML IV SCH (17:31)
[2016-06-20] MEDS: INSULIN ASPART 100 UNITS/ML 3 ML PEN SC SCH ×2 (19:03→20:39)
[2016-06-20] MEDS ORDERED: ATORVASTATIN 40 MG TAB PO SCH (21:00)
[2016-06-20] MEDS ORDERED: ASPIRIN 81 MG ECTAB PO SCH (21:00)
[2016-06-20] MEDS ORDERED: DOCUSATE SODIUM/SENNA 50/8.6MG TAB PO SCH (21:00)
[2016-06-20] MEDS ORDERED: METOPROLOL SUCC 25MG EXT REL TAB PO SCH (21:00)
[2016-06-20] MEDS ORDERED: MAGNESIUM OXIDE 400 MG TAB PO SCH (21:00)
[2016-06-21] MEDS: CEFAZOLIN IV 2,000 MG in DEXTROSE 5% 50ML 50 ML IV SCH (01:40)
[2016-06-21] MEDS: SODIUM CHLORIDE 0.9% 1000ML 1,000 ML IV SCH (01:41)
[2016-06-21 03:08] VITALS: BP 133/80; PULSE 84; TEMP 36.5; O2SAT 92
[2016-06-21] MEDS ORDERED: NURSING DECISION MEDICATION ORDER SCH (06:00)
[2016-06-21] MEDS ORDERED: DC PCA SCH (06:00)
[2016-06-21] MEDS ORDERED: HYDROmorphone INJ 1 MG/ML SYR IV PRN (06:00)
[2016-06-21] MEDS ORDERED: HYDROmorphone INJ 0.5 MG/0.5 ML SYR IV PRN (06:00)
[2016-06-21] MEDS ORDERED: LEVOTHYROXINE 112 MCG TAB PO SCH (06:00)
[2016-06-21 06:28] LABS: BASO % 0.1 %; BASO ABS # 0.01 K/uL (0-0.2); COMPLETE YES; EOS % 0.1 %; HEMATOCRIT 37.1 % (37-47); IG% 0.2 %; LYMPH % 15.3 %; LYMPH ABS # 1.96 K/uL (1.2-3.4); MEAN CELL VOLUME 90.5 fL (80-100); MEAN CORPUSCULAR HEMOGLOBIN 30.5 pg (25-34); MEAN CORPUSCULAR HGB CONC 33.7 g/dl (32-36); MEAN PLATELET VOLUME 10.3 fL (7.4-10.4); MONO % 7.7 %; NEUT % 76.6 %; PLATELET COUNT 238 K/uL (130-400); WHITE BLOOD COUNT 12.85 K/uL (4.8-10.8)
[2016-06-21 06:57] VITALS: BP 138/90; PULSE 65; TEMP 36.8; O2SAT 94
[2016-06-21 07:10] LABS: BUN/CREATININE RATIO 17.7 (10-20); CALCIUM 9.1 mg/dl (8.5-10.1); CREATININE 1.1 mg/dl (0.60-1.20); POTASSIUM 3.8 mmol/L (3.5-5.1)
[2016-06-21] MEDS: OXYCODONE HCL IR 5 MG TAB (IMMEDIATE RELEASE) PO PRN ×2 (07:12→12:41)
--- NOTE | 2016-06-21 07:24 | Orthopedic Progress Note ---
Orthopedic Progress Note Date of Service Jun 21, 2016. Subjective Post OP Day: 1 Reports: feeling well, pain controlled w PO medications, Denies: SOB, calf pain , chest pain, complaints, light headedness, nausea / vomiting Additional Notes: Doing well, in hard collar this AM, only complaint is itching. No arm pain or numbness. Stable restful night. Medically stable. Objective calves soft nontender, N/V intact, capillary refill less than 2 sec., dressing C /D/I, A&O x3, toes mobile, hemovac drainage Date Time Temp Pulse Resp B/P Pulse Ox O2 Delivery O2 Flow Rate FiO2 06/21/16 06:57 36.8 65 20 138/90 94 Room Air 06/21/16 03:08 36.5 84 18 133/80 92 Room Air 06/20/16 23:01 36.6 87 18 119/73 93 Room Air 06/20/16 20:34 92 130/78 06/20/16 19:54 94 Room Air 06/20/16 19:20 36.7 94 18 137/83 97 Nasal Cannula 2.0 06/20/16 19:05 Nasal Cannula 4.0 06/20/16 17:27 36.7 92 18 134/77 98 Nasal Cannula 4.0 06/20/16 16:06 36.5 92 18 152/85 99 Nasal Cannula 4.0 06/20/16 15:05 36.6 87 18 154/83 100 Nasal Cannula 4.0 06/20/16 15:02 100 Nasal Cannula 4.0 06/20/16 14:49 36.3 79 19 154/83 100 Nasal Cannula 4.0 06/20/16 14:10 100 Nasal Cannula 4.0 06/20/16 14:10 36.4 81 16 159/82 100 Nasal Cannula 4.0 06/20/16 14:00 77 18 165/83 99 Nasal Cannula 4 06/20/16 13:45 78 16 160/83 99 Nasal Cannula 4 06/20/16 13:30 36.6 82 18 176/84 100 Nasal Cannula 4 06/20/16 13:20 82 16 173/77 100 Nasal Cannula 4 06/20/16 13:10 83 15 159/83 100 Nasal Cannula 4 06/20/16 13:00 84 14 177/84 98 Nasal Cannula 4 06/20/16 12:50 84 17 176/79 100 Mask 10 Arterial Line 06/20/16 12:40 90 13 160/68 100 Mask 10 06/20/16 12:30 94 17 186/73 99 Mask 10 204/80 06/20/16 12:20 89 19 158/81 99 Mask 10 206/73 06/20/16 12:13 36.4 88 18 137/96 99 Mask 10 06/20/16 08:22 36.4 65 20 163/84 96 Room Air Laboratory Results 24 Hours: Test 06/21/16 05:49 White Blood Count 12.85 K/uL Red Blood Count 4.10 M/uL Hemoglobin 12.5 g/dL Hematocrit 37.1 % Mean Corpuscular Volume 90.5 fL Mean Corpuscular Hemoglobin 30.5 pg Mean Corpuscular Hemoglobin Concent 33.7 g/dl Platelet Count 238 K/uL Mean Platelet Volume 10.3 fL Neutrophils (%) (Auto) 76.6 % Lymphocytes (%) (Auto) 15.3 % Monocytes (%) (Auto) 7.7 % Eosinophils (%) (Auto) 0.1 % Basophils (%) (Auto) 0.1 % Neutrophils # (Auto) 9.85 K/uL Lymphocytes # (Auto) 1.96 K/uL Monocytes # (Auto) 0.99 K/uL Eosinophils # (Auto) 0.01 K/uL Basophils # (Auto) 0.01 K/uL Assessment & Plan Assessment: s/p cervical fusion Plan: Doing well, change bandage and d/c drain, discharge home today
[2016-06-21 07:25] LABS: ESTIMATED AVERAGE GLUCOSE 146 mg/dl; HA1C FLAG Normal (Normal)
[2016-06-21] MEDS ORDERED: VENLAFAXINE HCL XR 150 MG CAPXR PO SCH ×2 (09:00)
[2016-06-21] MEDS ORDERED: LISINOPRIL 40 MG TAB PO SCH (09:00)
[2016-06-21] MEDS ORDERED: AMLODIPINE BESYLATE 5 MG TAB PO SCH (09:00)
[2016-06-21] MEDS ORDERED: CHLORTHALIDONE 25 MG TAB PO SCH (09:00)
[2016-06-21] MEDS ORDERED: METOPROLOL SUCC 50MG EXT REL TAB PO SCH (09:00)
[2016-06-21] MEDS: INSULIN ASPART 100 UNITS/ML 3 ML PEN SC SCH ×2 (09:25→13:51)
--- NOTE | 2016-06-21 09:53 | Clinical Documentation Query ---
ANTHONY Dutton : CLINICAL DOCUMENTATION QUERY Patient is a 70 year old female s/p posterior cervical spinal decompression and fusion. Through EMR review, this reader notes a BMI > 40 kg/m*m. This directly impacts severity of illness, risk of mortality, and therefore DRG assignment. In order to capture this information from a coding perspective, the provider must explicitly document the associated condition (overweight, obese, etc...,). As appropriate, consider documentation as suggested below. Thank you. In your clinical opinion is this patient being managed for/have a diagnosis of: ( ) Obesity ( ) Other explanation of clinical findings (Please Explain) ( ) Unable to determine (Please Define) ( ) Need to Discuss ( ) Not Agree The medical record reflects the following clinical findings, treatment, and risk factors. Clinical Indicators: As above Treatment: n/a Risk Factors: Age, inactivity, caloric I>>O Clarification - BMI ReportingCoding Clinic [id number], [id number]:There has been some confusion as to whether nursing staff documentation is acceptable for assigning BMI. Since hospitals are allowed to code the BMI based on the casual shoe inspector's documentation, it would seem reasonable to assign the BMI based on the nurse's documentation as well. Can coders use nursing documentation to assign the BMI? Answer:Yes, the BMI can be assigned based on medical record documentation from clinicians, including nurses and dieticians who are not the patient's provider. As stated in the Official Guidelines for Coding and Reporting, BMI code assignment may be based on medical record documentation from clinicians who are not the patient's provider, since this information is typically documented by other clinicians involved in the care of the patient. Dieticians were only mentioned as an example of a clinician that might document BMI information. However, the associated diagnosis (such as overweight, obesity, or underweight) must be documented by the provider. Please clarify and document your clinical opinion in the progress notes and discharge summary. Terms such as "probable", "suspected", "likely", "questionable", "possible", or "still to be ruled out" are acceptable. IF IN AGREEMENT, YOU MUST DOCUMENT ABOVE DIAGNOSTIC STATEMENT IN DAILY PROGRESS NOTES AND DISCHARGE SUMMARY. This document is not part of the patient's record. Thank You, Aiden Linton, RN [phone]
--- NOTE | 2016-06-21 09:54 | Clinical Documentation Query ---
SEGUNDO Flood : CLINICAL DOCUMENTATION QUERY Patient is a 70 year old female s/p posterior cervical spinal decompression and fusion. Through EMR review, this reader notes a BMI > 40 kg/m*m. This directly impacts severity of illness, risk of mortality, and therefore DRG assignment. In order to capture this information from a coding perspective, the provider must explicitly document the associated condition (overweight, obese, etc...,). As appropriate, consider documentation as suggested below. Thank you. In your clinical opinion is this patient being managed for/have a diagnosis of: ( ) Obesity ( ) Other explanation of clinical findings (Please Explain) ( ) Unable to determine (Please Define) ( ) Need to Discuss ( ) Not Agree The medical record reflects the following clinical findings, treatment, and risk factors. Clinical Indicators: As above Treatment: n/a Risk Factors: Age, inactivity, caloric I>>O Clarification - BMI ReportingCoding Clinic [id number], [id number]:There has been some confusion as to whether nursing staff documentation is acceptable for assigning BMI. Since hospitals are allowed to code the BMI based on the chain maker loom control's documentation, it would seem reasonable to assign the BMI based on the nurse's documentation as well. Can coders use nursing documentation to assign the BMI? Answer:Yes, the BMI can be assigned based on medical record documentation from clinicians, including nurses and dieticians who are not the patient's provider. As stated in the Official Guidelines for Coding and Reporting, BMI code assignment may be based on medical record documentation from clinicians who are not the patient's provider, since this information is typically documented by other clinicians involved in the care of the patient. Dieticians were only mentioned as an example of a clinician that might document BMI information. However, the associated diagnosis (such as overweight, obesity, or underweight) must be documented by the provider. Please clarify and document your clinical opinion in the progress notes and discharge summary. Terms such as "probable", "suspected", "likely", "questionable", "possible", or "still to be ruled out" are acceptable. IF IN AGREEMENT, YOU MUST DOCUMENT ABOVE DIAGNOSTIC STATEMENT IN DAILY PROGRESS NOTES AND DISCHARGE SUMMARY. This document is not part of the patient's record. Thank You, Aiden Linton, RN [phone]
[2016-06-21 12:18] VITALS: BP 138/90; PULSE 65; TEMP 36.8; O2SAT 94
[2016-06-22] MEDS ORDERED: ONDA4TAB10 SL (02:27)
[2016-06-22] MEDS ORDERED: LEVO500T19 PO (02:27)
[2016-06-22] MEDS ORDERED: OSEL75CA12 PO (02:27)
[2016-06-22] MEDS ORDERED: POLYETHYLENE (MIRALAX) 17 GM PACK PO SCH (06:00)
--- NOTE | 2016-06-29 13:49 | DISCHARGE SUMMARY ---
PRINCIPAL DIAGNOSIS: Includes cervical stenosis, cervical myelopathy, C3-C6. POSTOPERATIVE DIAGNOSIS: Same. PROCEDURE: C3, C4, C5 and C6 laminectomies with lateral mass screw instrumentation C3-C4, C5, C6, posterolateral fusion C3-C6. SURGEON: Dr. Oneal Segovia. BLOOD BANK MANAGER: Ariel Pascal PA-C. HISTORY OF PRESENT ILLNESS: Please refer to EMR. HOSPITAL COURSE: On the above date 06/20/2016 Ms. Bustillo was admitted to [facility] with the above diagnosis. She was taken to preoperative holding where she was identified, evaluated and cleared for surgical procedure. She was transported to the operating room, introduced with general endotracheal anesthesia. Sterile conditions were set and she successfully underwent the above procedure without complication or issue. She was awakened in stable and satisfactory condition and transported to postoperative recovery in immobilization. Here her vital signs and pain were monitored and managed effectively. She was then taken to the orthopedic floor for continued postoperative care. Throughout the night, her pain was well controlled. Vital signs were monitored. She had no difficulty. Denied any numbness, tingling, or weakness of the extremities. She was evaluated the next morning 06/21/2016 and indicated for return home. On this date, she was discharged from [facility]. DISPOSITION: Home. DISPOSITION CONDITION: Stable. NOTED COMPLICATIONS OR ISSUES: Zero. DISCHARGE INSTRUCTIONS: Please refer to EMR.
== END 2016-06-21 15:45 | disposition home or self-care (01) | DRG 472 ==
LOC: ENRESERVTM → ENRESERVDT → C.ACU 07:10 → C.3E 09:30
PROVIDERS: ADMIT Orthopaedic Surgery Orthopaedic Surgery of the Spine; ATTEND Orthopaedic Surgery Orthopaedic Surgery of the Spine
PROC: 0RG2071 Fusion of 2 or more Cervical Vertebral Joints with Autologous Tissue Substitute, Posterior Approach, Posterior Column, Open Approach (ICD-10-PCS; principal; 2016-06-20 09:00)
PROC: 3E0U0GB Introduction of Recombinant Bone Morphogenetic Protein into Joints, Open Approach (ICD-10-PCS; principal; 2016-06-20 09:00)
DX: M48.02 Spinal stenosis, cervical region (principal); Z68.41 Body mass index [BMI] 40.0-44.9, adult; G95.89 Other specified diseases of spinal cord; G25.2 Other specified forms of tremor; I10 Essential (primary) hypertension; E78.5 Hyperlipidemia, unspecified; E03.9 Hypothyroidism, unspecified; K21.9 Gastro-esophageal reflux disease without esophagitis; E11.9 Type 2 diabetes mellitus without complications; G43.909 Migraine, unspecified, not intractable, without status migrainosus; M19.90 Unspecified osteoarthritis, unspecified site; E88.81 Metabolic syndrome and other insulin resistance; I67.9 Cerebrovascular disease, unspecified; I25.10 Atherosclerotic heart disease of native coronary artery without angina pectoris; I25.2 Old myocardial infarction; F41.9 Anxiety disorder, unspecified; F32.9 Major depressive disorder, single episode, unspecified; E66.01 Morbid (severe) obesity due to excess calories; Z98.1 Arthrodesis status; Z95.5 Presence of coronary angioplasty implant and graft; Z96.653 Presence of artificial knee joint, bilateral; Z86.73 Personal history of transient ischemic attack (TIA), and cerebral infarction without residual deficits; Z87.891 Personal history of nicotine dependence; Z79.82 Long term (current) use of aspirin; Z79.891 Long term (current) use of opiate analgesic; Z79.899 Other long term (current) drug therapy

== ENCOUNTER 2016-06-21 22:41 | Emergency (ER) | payer OTHER ==
[~2016-06-21] VITALS: Ht 149.9 cm; Wt 90.9 kg
[~2016-06-21 22:41] MED LIST changes: -CEFAZOLIN 2000 MG/60 ML D5W IV SCH; -CeleBREX 200 MG CAP PO SCH; -DEXAMETHASONE SOD INJ 4 MG/ML VIAL ONE; -EFF75 PO; -FENTANYL CITRATE INJ 50 MCG/1 ML 2 ML VIAL ONE; -LACTATED RINGER'S 1000ML 1,000 ML IV SCH; -LIDOCAINE HCL 2% 2 ML VIAL (20MG/ML) ONE; -MIDAZOLAM HCL 1 MG/ML 2ML VIAL ONE; -ONDANSETRON INJ 2 MG/ML 2 ML VIAL ONE; +OXYC-57 PO; -PREGABALIN 75 MG CAP PO SCH; -PROPOFOL IV EMULSION 10 MG/ML 100 ML VIAL IV ONE; -PROPOFOL IV EMULSION 10 MG/ML 20 ML VIAL IV ONE; -REMIFENTANIL 1 MG VIAL ONE; -SUCCINYLCHOLINE CHLORIDE 20 MG/ML 10 ML VIAL IV ONE; +VENL150C56 PO
[2016-06-21 22:44] VITALS: Ht 149.9 cm; Wt 90.9 kg
[2016-06-22] MEDS ORDERED: SODIUM CHLORIDE 0.9% 1000ML 1,000 ML IV STA (00:03)
[2016-06-22 00:44] LABS: BASO % 0.2 %; BASO ABS # 0.03 K/uL (0-0.2); COMPLETE YES; HEMATOCRIT 35.2 % (37-47); IG% 0.3 %; LYMPH % 13.4 %; LYMPH ABS # 1.99 K/uL (1.2-3.4); MEAN CELL VOLUME 89.3 fL (80-100); MEAN CORPUSCULAR HGB CONC 34.7 g/dl (32-36); MEAN PLATELET VOLUME 10.6 fL (7.4-10.4); MONO % 8.1 %; PLATELET COUNT 222 K/uL (130-400); RED BLOOD COUNT 3.94 M/uL (4.2-5.4); WHITE BLOOD COUNT 14.85 K/uL (4.8-10.8)
[2016-06-22] MEDS: MoRPHine SULFATE 4 MG/ML 1 ML CARP\\VIAL IV PRN ×2 (00:54→03:27)
[2016-06-22 01:00] VITALS: O2SAT 94
[2016-06-22 01:02] LABS: ALT/SGPT 35 U/L (12-78); AST/SGOT 37 U/L (15-37); BLOOD UREA NITROGEN 19 mg/dl (7-18); BUN/CREATININE RATIO 19.8 (10-20); CARBON DIOXIDE 28 mmol/L (21-32); CHLORIDE 99 mmol/L (98-107); CREATININE 0.95 mg/dl (0.60-1.20); GLUCOSE 146 mg/dl (70-99); POTASSIUM 3.7 mmol/L (3.5-5.1); SODIUM 137 mmol/L (136-145)
[2016-06-22 01:07] LABS: ALKALINE PHOSPHATASE 60 U/L (45-117); CKMB/CK RATIO 1.8 (0-3.0)
[2016-06-22 01:58] LABS: MANUAL MICROSCOPIC REQUIRED? NO; REVIEW REQ? NO; URINE APPEARANCE CLEAR (CLEAR); URINE BILIRUBIN NEG (NEG); URINE COLOR YELLOW; URINE EPITHELIAL CELL AUTO 20-30 /lpf (0-5); URINE NITRITE NEG (NEG); URINE SPECIFIC GRAVITY 1.016 (1.000-1.030); UROBILINOGEN NEG (NEG); ZZURINE CULT IF INDIC CATH NO
[2016-06-22] MEDS ORDERED: LEVOFLOXACIN 250 MG TAB PO STA (02:18)
[2016-06-22] MEDS ORDERED: OSELTAMIVIR PHOSPHATE 75 MG CAP PO STA (02:19)
[2016-06-22] MEDS ORDERED: ACETAMINOPHEN 500 MG TAB PO STA (02:19)
[2016-06-22] MEDS ORDERED: OSEL75CA12 PO (02:27)
[2016-06-22] MEDS ORDERED: LEVO500T19 PO (02:27)
[2016-06-22] MEDS ORDERED: ONDA4TAB10 SL (02:27)
--- NOTE | 2016-06-22 02:27 | EMERGENCY ROOM VISIT NOTE ---
History Report prepared by Kelby: Ave Medeiros Under the Supervision of: Dr. Chema Gipson D.O. First contact with patient: 23:58 Chief Complaint: NECK PAIN Stated Complaint: NECK PAIN History of Present Illness The patient is a 70 year old female who presents to the Emergency Room via EMS with complaints of worsening generalized pain that began earlier today. The patient was admitted to the hospital yesterday and had cervical compression and fusion surgery due to a history of cervical disc disease performed by Dr. Segovia. She was discharged today. While the patient was in the hospital, the patient started having pain in her neck, chest, arms, back, and legs. Coughing exacerbates her pain. She notes that she had a coughing fit while she was trying to go to sleep this evening and her pain worsened significantly. The patient notes that she was not having any of this pain prior to coming into the hospital for her surgery yesterday. She took two oxycodone about 2.5 hours ago with no relief. She does note she has had sick contacts recently including a family member with the flu. Source of History: patient Onset: today Position: other (generalized) Timing: worsening Modifying Factors (Worsening): other (coughing) Review of Systems See HPI for pertinent positives & negatives. A total of 10 systems reviewed and were otherwise negative. Past Medical & Surgical Medical Problems: (1) Acute non-ST segment elevation myocardial infarction (2) Benign hypertension (3) Carotid artery stenosis (4) Cerebrovascular disease (5) Coronary artery disease (6) Gastroesophageal reflux disease (7) History of adenomatous polyp of colon (8) Hyperlipidemia (9) Hypothyroidism (10) Migraine (11) Osteoarthritis (12) Spinal stenosis in cervical region Surgical Problems: (1) Status post cardiac catheterization (2) Status post cataract extraction (3) Status post coronary artery stent placement (4) Status post hysterectomy Family History Cancer Diabetes mellitus Heart disease Hypertension Social History Smoking Status: Never Smoker Alcohol Use: none Drug Use: none Marital Status: Housing Status: lives with family Occupation Status: retired Current/Historical Medications Scheduled Amlodipine (Norvasc), 2.5 MG PO QAM Aspirin (Aspirin Ec), 81 MG PO QPM Atorvastatin (Atorvastatin Calcium), 40 MG PO QPM Biotin (Biotin 5000), 2 CAP PO QPM Chlorthalidone (Chlorthalidone), 25 MG PO QAM Levofloxacin (Levaquin), 1 TAB PO DAILY Levothyroxine Sodium (Levothyroxine Sodium), 112 MCG PO DAILYBB Lisinopril (Prinivil), 40 MG PO QAM Magnesium Oxide (Mag-Ox), 400 MG PO QPM Metoprolol Succinate (Toprol Xl), 25 MG PO HS Metoprolol Succinate (Toprol Xl), 50 MG PO QAM Multivitamin (Multivitamin), 1 TAB PO QPM Nitroglycerin (Nitrostat), 0.4 MG UT PRN Ondasetron Odt (Zofran Odt), 4 MG SL Q6H Oseltamivir (Tamiflu), 75 MG PO BID Pyridoxine (Vitamin B6), 100 MG PO QPM Venlafaxine Hcl (Effexor Extended Rel), 150 MG PO DAILY [Lovaza], 4 TAB PO QPM Scheduled PRN Oxycodone/Acetaminophen 5MG/325MG (Percocet 5MG/325MG), 1-2 TABLETS PO Q4H PRN for Pain Sennosides-Docusate Sodium (Stool Softener), 1 TAB PO DAILY PRN for Constipation Allergies Coded Allergies: Chlorhexidine (Verified Allergy, Intermediate, SEVERE RED AND BURNING SKIN , 06/22/16) Amitriptyline (Verified Allergy, Unknown, PT UNSURE OF RXN, 06/22/16) Dipyridamole (Verified Allergy, Unknown, PT DOESN'T KNOW WHAT HAPPENED, ) NSAIDs (Verified Adverse Reaction, Intermediate, 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, 06/22/16) Propoxyphene (Verified Adverse Reaction, Intermediate, GI UPSET, "DISORIENTED", 06/22/16) Amoxicillin (Verified Adverse Reaction, Mild, VOMITING, GI UPSET, 06/22/16) Baclofen (Verified Adverse Reaction, Mild, disoriented nausea, 06/22/16) Clavulanic Acid (Verified Adverse Reaction, Mild, VOMITING, GI UPSET, 06/22) Diclofenac (Verified Adverse Reaction, Mild, disoriented nausea, 06/22/16) Physical Exam Vital Signs Date Time Temp Pulse Resp B/P Pulse Ox O2 Delivery O2 Flow Rate FiO2 06/22/16 02:06 92 06/22/16 01:11 38.5 92 18 143/74 95 Room Air 06/22/16 01:00 88 Room Air 06/22/16 01:00 94 Nasal Cannula 2.0 06/22/16 00:44 95 18 178/72 92 Room Air 06/21/16 22:55 89 06/21/16 22:44 36.8 88 18 161/77 95 Room Air Physical Exam CONSTITUTIONAL/VITAL SIGNS: Reviewed / noted above. GENERAL: Non-toxic in appearance. INTEGUMENTARY: Warm, dry, and [place]. HEAD: Normocephalic. EYES: without scleral icterus or trauma. ENT/OROPHARYNX: clear and moist. LYMPHADENOPATHY/NECK: Cervical collar in place. RESPIRATORY: Lungs clear and equal. CARDIOVASCULAR: Regular rate and rhythm. GI/ABDOMEN: Soft and nontender. No organomegaly or pulsatile mass. No rebound or guarding. Normal bowel sounds. EXTREMITIES: Warm and well perfused. BACK: No CVA tenderness. NEUROLOGICAL: Intact without focal deficits. PSYCHIATRIC: normal affect. MUSCULOSKELETAL: Normally developed with good muscle tone. Medical Decision & Procedures ER Provider Diagnostic Interpretation: X-ray per my interpretation: Chest x-ray: Rotated study. No pneumothorax. Atelectasis vs small infiltrate in the left base. Laboratory Results 06/22/16 00:20 Red Blood Count 3.94, Mean Corpuscular Volume 89.3, Mean Corpuscular Hemoglobin 31.0, Mean Corpuscular Hemoglobin Concent 34.7, Mean Platelet Volume 10.6, Neutrophils (%) (Auto) 78.0, Lymphocytes (%) (Auto) 13.4, Monocytes (%) (Auto) 8.1, Eosinophils (%) (Auto) 0.0, Basophils (%) (Auto) 0.2, Neutrophils # (Auto) 11.58, Lymphocytes # (Auto) 1.99, Monocytes # (Auto) 1.20, Eosinophils # (Auto) 0.00, Basophils # (Auto) 0.03 06/22/16 00:20 Test 06/22/16 00:00 06/22/16 00:20 06/22/16 00:54 Urine Color YELLOW Urine Appearance CLEAR (CLEAR) Urine pH 5.0 (4.5-7.5) Urine Specific [place] 1.016 (1.000-1.030) Urine Protein NEG (NEG) Urine Glucose (UA) NEG (NEG) Urine Ketones NEG (NEG) Urine Occult Blood NEG (NEG) Urine Nitrite NEG (NEG) Urine Bilirubin NEG (NEG) Urine Urobilinogen NEG (NEG) Urine Leukocyte Esterase TRACE (NEG) Urine WBC (Auto) 1-5 /hpf (0-5) Urine RBC (Auto) 0-4 /hpf (0-4) Urine Hyaline Casts (Auto) 1-5 /lpf (0-5) Urine Epithelial Cells (Auto) 20-30 /lpf (0-5) Urine Bacteria (Auto) NEG (NEG) White Blood Count 14.85 K/uL (4.8-10.8) Red Blood Count 3.94 M/uL (4.2-5.4) Hemoglobin 12.2 g/dL (12.0-16.0) Hematocrit 35.2 % (37-47) Mean Corpuscular Volume 89.3 fL (80-100) Mean Corpuscular Hemoglobin 31.0 pg (25-34) Mean Corpuscular Hemoglobin Concent 34.7 g/dl (32-36) Platelet Count 222 K/uL (130-400) Mean Platelet Volume 10.6 fL (7.4-10.4) Neutrophils (%) (Auto) 78.0 % Lymphocytes (%) (Auto) 13.4 % Monocytes (%) (Auto) 8.1 % Eosinophils (%) (Auto) 0.0 % Basophils (%) (Auto) 0.2 % Neutrophils # (Auto) 11.58 K/uL (1.4-6.5) Lymphocytes # (Auto) 1.99 K/uL (1.2-3.4) Monocytes # (Auto) 1.20 K/uL (0.11-0.59) Eosinophils # (Auto) 0.00 K/uL (0-0.5) Basophils # (Auto) 0.03 K/uL (0-0.2) RDW Standard Deviation 40.2 fL (36.4-46.3) RDW Coefficient of Variation 12.4 % (11.5-14.5) Immature Granulocyte % (Auto) 0.3 % Immature Granulocyte # (Auto) 0.05 K/uL (0.00-0.02) Prothrombin Time 11.0 SECONDS (9.0-12.0) Prothromb Time International Ratio 1.0 (0.9-1.1) Activated Partial Thromboplast Time 25.7 SECONDS (21.0-31.0) Partial Thromboplastin Ratio 1.0 Anion Gap 10.0 mmol/L (3-11) Est Creatinine Clear Calc Drug Dose 53.4 ml/min Estimated GFR () 69.8 Estimated GFR (Non- 60.3 BUN/Creatinine Ratio 19.8 (10-20) Calcium Level 9.0 mg/dl (8.5-10.1) Total Bilirubin 0.6 mg/dl (0.2-1) Direct Bilirubin 0.1 mg/dl (0-0.2) Aspartate Amino Transf (AST/SGOT) 37 U/L (15-37) Alanine Aminotransferase (ALT/SGPT) 35 U/L (12-78) Alkaline Phosphatase 60 U/L (45-117) Total Creatine Kinase 391 U/L (26-192) Creatine Kinase MB 7.1 ng/ml (0.5-3.6) Creatine Kinase MB Ratio 1.8 (0-3.0) Troponin I < 0.015 ng/ml (0-0.045) Total Protein 6.8 gm/dl (6.4-8.2) Albumin 3.4 gm/dl (3.4-5.0) Influenza Type A Antigen Neg for Influ A (NEG) Influenza Type B Antigen Neg for Influ B (NEG) Laboratory results as stated above per my review. Medications Administered Medications (Trade) Dose Ordered Sig/Kaila Route Start Time Stop Time Status Last Admin Dose Admin Sodium Chloride (Nss 1000ml) 1,000 ml @ 999 mls/hr Q1H1M STAT IV 06/22/16 00:03 06/22/16 01:03 DC 06/22/16 00:53 999 MLS/HR Morphine Sulfate (MoRPHine SULFATE INJ) 4 mg Q1H PRN IV 06/22/16 00:15 07/06/16 00:14 06/22/16 00:54 4 MG ECG Indication: chest pain Rate (beats per minute): 96 Rhythm: normal sinus Findings: no ectopy, other (no acute injury) ED Course 2202: Previous medical records were reviewed. The patient was evaluated in room B10. A complete history and physical examination was performed. 0003: Ordered NSS 1000 ml @ 999 mls/hr IV. 0015: Ordered Morphine Sulfate 4 mg IV. 0218: Ordered Levofloxacin 500 mg PO, Tamiflu 75 mg PO, Tylenol Tab 1000 mg PO. 0220: On reevaluation, the patient is feeling better. I discussed the results and findings with the patient. She verbalized agreement of the treatment plan. The patient was discharged home. Medical Decision Differential includes acute coronary syndrome, myocardial infarction, CVA, TIA, anemia, infection, pneumonia, UTI, pyelonephritis, poor nutrition, dehydration, electrolyte disturbance,hypoglycemia. This is a 70-year-old female who presents to the ED with a chief complaint of pain all over. The patient states that she came in the hospital yesterday and had neck surgery. Prior to discharge today, she is complaining of pain all over. She continues having discomfort everywhere. She denies cough. She denies abdominal pain. No chest pains or shortness of breath. She has not had a fever. She was discharged earlier today. Her vital signs are stable. She is afebrile. Her exam did not reveal any obvious abnormalities. She does have a c-collar in place. The patient developed a temperature of 38.5 while she was here. A chest x-ray suggested possible left base infiltrate. EKG shows a normal sinus rhythm. White blood cell count was 14.85. The BUN is 19. The troponin is negative. Urine did not show infection Flu swab was negative. The patient's grandson had the flu several days ago. Because the patient's fever, chest x-ray findings and history, the patient was started on Levaquin as well as Tamiflu. She is felt to be stable for discharge and outpatient follow-up. Impression Primary Impression: Pneumonia Scribe Attestation The scribe's documentation has been prepared under my direction and personally reviewed by me in its entirety. I confirm that the note above accurately reflects all work, treatment, procedures, and medical decision making performed by me. Departure Information Dispostion Home / Self-Care Prescriptions Ondasetron Odt (ZOFRAN ODT) 4 Mg Tab 4 MG SL Q6H for Nausea, #15 TAB Prov: Chema Gipson D.O. 06/22/16 Oseltamivir (Tamiflu) 75 Mg Cap 75 MG PO BID, #10 CAP Prov: Chema Gipson D.O. 06/22/16 Levofloxacin (LEVAQUIN) 500 Mg Tab 1 TAB PO DAILY for 7 Days, #7 TAB Prov: Chema Gipson D.O. 06/22/16 Referrals Sangita Jaime D.O. (PCP) Patient Instructions My [facility] Additional Instructions Levaquin as prescribed. Tamiflu as prescribed. Zofran: Allow one tablet to dissolve under the tongue every 6 hours as needed for nausea or vomiting. Follow-up with your doctor for further care and evaluation in 1-2 days. Return to the emergency department for worsening or new symptoms or any concerns. You have been examined and treated today on an emergency basis only. This is not a substitute for, or an effort to provide, complete comprehensive medical care. It is impossible to recognize and treat all injuries or illnesses in a single emergency department visit. It is therefore important that you follow up closely with your doctor. Call as soon as possible for an appointment.
[2016-06-22 06:25] VITALS: BP 148/77; PULSE 95; TEMP 36.9; O2SAT 95
--- NOTE | 2016-06-22 07:51 | DIAGNOSTIC IMAGING REPORT ---
SINGLE VIEW CHEST CLINICAL HISTORY: Fever. Sepsis. FINDINGS: An AP, portable, upright chest radiograph is compared to study dated 06/02/2016. The examination is degraded by portable technique, large body habitus, and patient rotation. The heart is top normal for projection and there is atherosclerotic calcification of the thoracic aorta. The pulmonary vasculature is noncongested. Chronic interstitial thickening is similar to previous. Trace pleural effusions are suspected. There is bibasilar atelectasis. No airspace consolidation is seen typical for pneumonia. No pneumothorax is seen. The skeletal structures are osteopenic. The bony thorax is grossly intact. Degenerative change is noted in the thoracic spine. Fusion hardware is seen in the cervical spine. IMPRESSION: 1. Suspect trace pleural effusions. 2. There is no airspace consolidation typical for pneumonia. Electronically signed by: Manoj Burns M.D. 06/22/2016 7:50 AM Dictated Date/Time: 06/22/2016 7:49 AM
== END 2016-06-22 06:25 | disposition home or self-care (01) ==
LOC: EDBD 22:41 → C.EDB 22:43
DX: J18.9 Pneumonia, unspecified organism (principal); I21.4 Non-ST elevation (NSTEMI) myocardial infarction; I10 Essential (primary) hypertension; I77.1 Stricture of artery; I67.9 Cerebrovascular disease, unspecified; I25.10 Atherosclerotic heart disease of native coronary artery without angina pectoris; E78.5 Hyperlipidemia, unspecified; E03.9 Hypothyroidism, unspecified; Z83.3 Family history of diabetes mellitus; Z82.49 Family history of ischemic heart disease and other diseases of the circulatory system; Z79.82 Long term (current) use of aspirin

== ENCOUNTER 2022-10-20 20:10 | Inpatient (IN) ==
--- NOTE | 2022-10-20 21:14 | Emergency Department Note ---
Impression & Plan Acute hyponatremia, Fall from standing, Back pain, Ambulatory dysfunction ED Provider Note HISTORY OF PRESENT ILLNESS: Patient is a 76-year-old female presenting today after a fall from standing. Patient reports that she stood up and felt dizzy and proceeded to fall backwards and strike the back of her head. She denies loss of consciousness. She is on aspirin daily. She denies any chest pain, shortness of breath or lightheadedness prior to the fall. Denies any numbness or tingling or weakness in her extremities. EMS reports that her neighbors expressed concern that the patient is unable to live on her own. They report that she is not taking care of herself and is unable to perform her activities of daily living. ROS: as above PHYSICAL EXAM: Constitutional: Patient appears in no acute distress. HENT: Head: Normocephalic and atraumatic. Eyes: EOMI, PERRL Mouth/Throat: Mucous membranes moist. Neck: Trachea midline. Neck supple. No midline cervical spine tenderness to palpation. Cardiovascular: RRR, No murmurs, rubs or gallops. Intact distal pulses. Pulmonary/Chest: No respiratory distress. Breath sounds clear and equal bilaterally. No wheezes or rales. No chest wall tenderness to palpation. Abdominal: BS +. Abdomen soft, no tenderness, rebound or guarding. Back: No paraspinal tenderness, no CVA tenderness. Patient has a midline upper thoracic tenderness to palpation Musculoskeletal: No edema, tenderness or deformity noted. Skin: Warm and dry. No rash, erythema, pallor or cyanosis Psychiatric: Appropriate mood and affect for situation. Neurological: Alert and keenly responsive. CN II-XII grossly intact, moving all extremities equally and fully. MDM: - Vitals signs showed hypertension. - History obtained via patient and EMS. Patient presents with back pain after fall from standing. Patient reports she felt dizzy and proceeded to fall backwards and strike the back of her head earlier today. Denies loss of conscio usness. She is on aspirin daily. Denies any chest pain, shortness of breath or lightheadedness prior to the fall. Denies any numbness or tingling in her extremities. EMS reports that family and neighbors were concerned about the patient's wellbeing and her ability to care for herself. - Chronic conditions affecting care: none - Differential diagnoses include, but are not limited to: Intracranial hemorrhage CVA; ACS; spinal fracture; electrolyte abnormality - Order placed for continuous cardiac monitoring. At this time, monitor showed rate of 75 bpm with normal sinus rhythm, per my interpretation. - External medical records reviewed. EMS run sheet reviewed. Patient was vitally stable in route. No medications were given prehospital. - EKG reviewed by myself showed normal sinus rhythm. Rate 69 bpm. QTc 424. No acute ischemic changes - Laboratory workup interpreted by myself showed normal WBC; hyponatremia (Na 114); normal creatinine; normal troponin - CT head wo contrast negative for acute pathology. - CT cervical spine wo contrast negative for acute injury - CT thoracic spine wo contrast negative for acute pathology. - Patient given 1L NS and 1g IV tylenol in ER. - Family expresses concern about patient's ability to perform her activities of daily living. They report she has been taking numerous pain medications on an empty stomach. 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 Canela, consulted for admission. - Patient admitted to [facility] Hospitalist service for further evaluation and management. ASSESSMENT AND PLAN: Diagnosis: hyponatremia; ambulatory dysfunction; fall from standing; upper back pain Plan: admit Past Med/Surg History Social History Smoking Status: Former smoker Preferred Language: Congolese Feels Safe at Home: Yes Allergies Allergies Allergy/AdvReac Type Severity Reaction Status Date / Time chlorhexidine Allergy Intermediate SEVERE RED Verified 06/22/16 00:52 AND BURNING SKIN amitriptyline Allergy Unknown PT UNSURE Verified 06/22/16 00:52 OF RXN dipyridamole Allergy Unknown PT DOESN'T Verified 06/22/16 00:52 KNOW WHAT HAPPENED NSAIDS (Non-Steroidal AdvReac Intermediate NOT TO Verified 06/22/16 00:52 Anti-Inflamma TAKE PER 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 LEAD 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 propoxyphene AdvReac Intermediate GI UPSET, Verified 06/22/16 00:52 "DISORIENTED" amoxicillin AdvReac Mild VOMITING, Verified 06/22/16 00:52 GI UPSET baclofen AdvReac Mild disoriented Verified 06/22/16 00:52 nausea clavulanic acid AdvReac Mild VOMITING, Verified 06/22/16 00:52 GI UPSET Diclopak AdvReac Mild disoriented Verified 06/22/16 00:52 nausea Home Meds Home Medications Medication Instructions Recorded Confirmed Lisinopril (Prinivil) 40 mg PO QAM ##0 05/29/11 Magnesium Oxide (Mag-Ox) 400 mg PO QPM ##0 05/29/11 Nitroglycerin (Nitrostat) 0.4 mg UT PRN ##0 05/29/11 ATORVASTATIN (LIPITOR) 40 mg PO QPM ##0 09/13/14 Amlodipine (Norvasc) 2.5 mg PO QAM #0 tabs 09/13/14 Chlorthalidone 25 mg PO QAM ##0 09/13/14 METOPROLOL SUCCINATE (TOPROL XL) 25 mg PO HS #0 tabs 09/13/14 LEVOTHYROXINE SODIUM 112 mcg PO DAILYBB ##0 09/14/14 METOPROLOL SUCCINATE (TOPROL XL) 50 mg PO QAM #0 tabs 09/14/14 ASPIRIN (ASPIRIN EC) 81 mg PO QPM ##0 06/02/16 BIOTIN (BIOTIN 5000) 2 cap PO QPM ##0 06/02/16 LOVAZA 4 tab PO QPM ##0 06/02/16 Multivitamin 1 tab PO QPM #0 tabs 06/02/16 Pyridoxine (Vitamin B6) 100 mg PO QPM #0 tabs 06/02/16 SENNOSIDES-DOCUSATE SODIUM (STOOL 1 tab PO DAILY PRN Constipation ##0 06/02/16 SOFTENER) VENLAFAXINE HCL (EFFEXOR EXTENDED 150 mg PO DAILY #0 caps 06/20/16 REL) Results & Data (ED) Vital Signs Vital Signs - 24 hr 10/20/22 20:03 10/20/22 22:06 10/20/22 23:00 Temperature 36.6 C Temperature Source Oral Pulse Rate 72 Pulse Rate [Finger] 70 73 Respiratory Rate 18 18 18 Respiratory Effort / Characteristics Non-Labored Non-Labored Non-Labored Spontaneous Respiratory Depth Normal Normal Normal Respiratory Pattern Regular Blood Pressure 175/71 H Blood Pressure [Right Arm] 170/70 H 178/76 H Blood Pressure Mean 105 Blood Pressure Mean [Right Arm] 103 110 Pulse Oximetry 98 95 95 Oxygen Delivery Method Room Air Room Air Room Air Sepsis Recent Fever Within 48 Hours No Sepsis New/Unexplained Change in Mental Status No Sepsis Action Taken by Nursing No Action Required Laboratory Data 10/20/22 20:35 10/20/22 20:35 Lab Results 10/20/22 10/20/22 10/20/22 Range/Units 20:35 20:35 22:19 WBC 6.49 (4.8-10.8) K/ul RBC 3.71 L (4.20-5.40) M/uL Hgb 11.5 L (12.0-16.0) g/dl Hct 31.0 L (37.0-47.0) % MCV 83.6 (80.0-100.0) fL MCH 31.0 (25.0-34.0) pg MCHC 37.1 H (32.0-36.0) g/dL RDW Std Deviation 35.8 L (36.4-46.3) fL RDW Coeff of Mine 11.8 (11.5-14.5) % Plt Count 287 (130-400) K/uL MPV 10.3 (9.4-12.4) fL Immature Gran % (Auto) 0.6 % Neut % (Auto) 70.0 % Lymph % (Auto) 19.6 % [place] % (Auto) 8.6 % Eos % (Auto) 0.0 % Baso % (Auto) 1.2 % Neut # (Auto) 4.54 (1.40-6.50) K/uL Lymph # (Auto) 1.27 (1.2-3.4) K/uL [place] # (Auto) 0.56 (0.11-0.59) K/uL Eos # (Auto) 0.00 (0-0.50) K/uL Baso # (Auto) 0.08 (0-0.2) K/uL Immature Gran # (Auto) 0.04 (0.01-0.20) K/uL Sodium 114 L* (136-145) mmol/L Potassium 4.1 (3.5-5.1) mmol/L Chloride 83 L (98-107) mmol/L Carbon Dioxide 24 (21-32) mmol/L Anion Gap 7 (3-11) BUN 17 (6-23) mg/dl Creatinine 1.13 (0.6-1.2) mg/dl Est Cr Clr Drug Dosing 38.5 ml/min Est GFR ( Amer) 54.3 ml/min Est GFR (Non-Af Amer) 46.8 ml/min BUN/Creatinine Ratio 15.0 (10-20) Glucose 84 (70-99(Fasting)) mg/dl Calcium 9.2 (8.6-10.3) mg/dl Total Bilirubin 0.5 (0.2-1.0) mg/dl AST 61 H (13-39) U/L ALT 40 (7-52) U/L Alkaline Phosphatase 75 (34-104) U/L Troponin I High Sens 10.1 (0-14) pg/ml Total Protein 6.6 (6.0-8.3) gm/dl Albumin 4.3 (3.4-5.0) gm/dl Globulin 2.3 L (2.5-4.0) gm/dl Albumin/Globulin Ratio 1.9 (0.9-2) SARS-CoV-2, RNA, NAAT NEGATIVE (NEGATIVE) Administered Medications Discontinued Medications Acetaminophen (Ofirmev) 1,000 mg in 100 mls @ 400 mls/hr IV NOW STA Stop: 10/20/22 22:07 Last Infusion: 10/20/22 23:04 Dose: 0 mls/hr Documented By: Admin: 10/20/22 22:17 Dose: 400 mls/hr Documented By: AW Imaging Data Radiologist's Impression: Cervical Spine CT 10/20/22 21:07 Exam(s): CT C SPINE EXAM: CT Cervical Spine Without Intravenous Contrast CLINICAL HISTORY: Reason for exam: neck pain; fall from standing. TECHNIQUE: Axial computed tomography images of the cervical spine without intravenous contrast. CTDI is 26.09 mGy and DLP is 440.52 mGy-cm. Automated exposure control was utilized for the study. A dose lowering technique was utilized adhering to the principles of ALARA. COMPARISON: No relevant prior studies available. FINDINGS: The vertebral body heights are maintained. The craniocervical junction is intact. The atlanto-dens interval is maintained. The dens is intact. There is no spondylolisthesis. Multilevel cervical spondylosis and degenerative disc disease. Straightening of the cervical lordosis. Multilevel posterior cervical fusion and multilevel posterior laminectomy. No screw fracture or hardware failure. Diffuse osseous demineralization. IMPRESSION: No cervical spine fracture. No spondylolisthesis. Multilevel posterior fusion hardware and laminectomies. Electronically signed by: Rosalio Vences MD 10/20/22 23:[address] 10/20/22 21:07 Exam(s): CT HEAD Without Contrast EXAM: CT Head Without Intravenous Contrast CLINICAL HISTORY: Reason for exam: Fall from standing; on aspirin. TECHNIQUE: Axial computed tomography images of the head/brain without intravenous contrast. CTDI is 38.99 mGy and DLP is 624.41 mGy-cm. Automated exposure control was utilized for the study. A dose lowering technique was utilized adhering to the principles of ALARA. COMPARISON: No relevant prior studies available. FINDINGS: No acute intracranial hemorrhage. No midline shift or mass effect. The territorial hernandez-white matter differentiation is maintained throughout. Age-related cerebral volume loss. Periventricular and subcortical white matter hypoattenuation, consistent with chronic microangiopathy. The visualized orbits appear grossly unremarkable. The calvarium is intact. The visualized paranasal sinuses and mastoid air cells are grossly clear. IMPRESSION: No acute intracranial hemorrhage, midline shift, or mass effect. Electronically signed by: Rosalio Vences MD 10/20/22 23:[address] 10/20/22 21:07 Exam(s): CT T SPINE EXAM: CT Thoracic Spine Without Intravenous Contrast CLINICAL HISTORY: Reason for exam: fall from standing; upper thoracic midline TTP. TECHNIQUE: Axial computed tomography images of the thoracic spine without intravenous contrast. CTDI is 38.35 mGy and DLP is 1250.09 mGy-cm. Automated exposure control was utilized for the study. A dose lowering technique was utilized adhering to the principles of ALARA. COMPARISON: No relevant prior studies available. FINDINGS: The vertebral body heights are maintained. The thoracic kyphosis is preserved. There is no spondylolisthesis. The posterior elements are maintained, without evidence of acute fracture. The pedicles are intact. Multilevel thoracic spondylosis and degenerative disc disease. Pedicle screws at L2. IMPRESSION: No acute fracture or subluxation of the thoracic spine. Electronically signed by: Rosalio Vences MD 10/20/22 23:06 PM Discharge Plan Visit Data Chief Complaint: Fall Stated Complaint: Fall, Dizziness, Weakness ED Provider: [facility] Discharge Problem: Acute hyponatremia, Fall from standing, Back pain, Ambulatory dysfunction Forms Stand Alone Forms: Consulted Prescriptions Prescriptions: No Action Lisinopril (Prinivil) 40 MG tablet 40 mg PO QAM Qty: 0 Magnesium Oxide (Mag-Ox) 400 MG tablet 400 mg PO QPM Qty: 0 Nitroglycerin (Nitrostat) 0.4 MG tablet 0.4 mg UT PRN Qty: 0 ATORVASTATIN (LIPITOR) 40 MG tablet 40 mg PO QPM Qty: 0 Amlodipine (Norvasc) 2.5 MG tablet 2.5 mg PO QAM Qty: 0 Chlorthalidone 25 MG tablet 25 mg PO QAM Qty: 0 METOPROLOL SUCCINATE (TOPROL XL) 25 MG tablet 25 mg PO HS Qty: 0 METOPROLOL SUCCINATE (TOPROL XL) 50 MG tablet 50 mg PO QAM Qty: 0 LEVOTHYROXINE SODIUM 112 MCG tablet 112 mcg PO DAILYBB Qty: 0 ASPIRIN (ASPIRIN EC) 81 MG tablet 81 mg PO QPM Qty: 0 BIOTIN (BIOTIN 5000) 5 MG capsule 2 cap PO QPM Qty: 0 LOVAZA 4 tab PO QPM Qty: 0 Multivitamin tablet 1 tab PO QPM Qty: 0 Pyridoxine (Vitamin B6) 100 MG tablet 100 mg PO QPM Qty: 0 SENNOSIDES-DOCUSATE SODIUM (STOOL SOFTENER) 1 TAB tablet 1 tab PO DAILY PRN (Reason: Constipation) Qty: 0 VENLAFAXINE HCL (EFFEXOR EXTENDED REL) 150 MG capsule 150 mg PO DAILY Qty: 0 Referrals Referrals: Naty Fang DO [Primary Care Provider] -
[2022-10-20 21:24] LABS: Basophils # (auto) 0.08 K/uL (0-0.2); Basophils % (auto) 1.2 %; Hemoglobin 11.5 g/dl (12.0-16.0); Immature Granulocytes # (auto) 0.04 K/uL (0.01-0.20); Immature Granulocytes % (auto) 0.6 %; Lymphocytes # (auto) 1.27 K/uL (1.2-3.4); Lymphocytes % (auto) 19.6 %; Mean Corpuscular Hgb Conc 37.1 g/dL (32.0-36.0); Mean Corpuscular Volume 83.6 fL (80.0-100.0); Mean Platelet Volume 10.3 fL (9.4-12.4); Monocytes # (auto) 0.56 K/uL (0.11-0.59); Monocytes % (auto) 8.6 %; Neutrophils # (auto) 4.54 K/uL (1.40-6.50); Platelet Count 287 K/uL (130-400); RDW Coefficient of Variation 11.8 % (11.5-14.5); RDW Standard Deviation 35.8 fL (36.4-46.3); Red Blood Count 3.71 M/uL (4.20-5.40); White Blood Count 6.49 K/ul (4.8-10.8)
[2022-10-20] MEDS ORDERED: ACETAMINOPHEN 1,000 MG/100 ML VIAL IV STA (21:53)
[2022-10-20 21:56] LABS: Albumin Globulin Ratio 1.9 (0.9-2); Albumin Level 4.3 gm/dl (3.4-5.0); Bilirubin,Total 0.5 mg/dl (0.2-1.0); Calcium 9.2 mg/dl (8.6-10.3); Creatinine Clr Calc Pharmacy 38.5 ml/min; Est GFR (African American) 54.3 ml/min; Est GFR (Non-African American) 46.8 ml/min; Globulin 2.3 gm/dl (2.5-4.0); Potassium 4.1 mmol/L (3.5-5.1); Total Protein 6.6 gm/dl (6.0-8.3); Troponin I High Sensitivity 10.1 pg/ml (0-14)
--- NOTE | 2022-10-20 23:05 | CT Scan Report ---
Exam(s): CT HEAD Without Contrast EXAM: CT Head Without Intravenous Contrast CLINICAL HISTORY: Reason for exam: Fall from standing; on aspirin. TECHNIQUE: Axial computed tomography images of the head/brain without intravenous contrast. CTDI is 38.99 mGy and DLP is 624.41 mGy-cm. Automated exposure control was utilized for the study. A dose lowering technique was utilized adhering to the principles of ALARA. COMPARISON: No relevant prior studies available. FINDINGS: No acute intracranial hemorrhage. No midline shift or mass effect. The territorial hernandez-white matter differentiation is maintained throughout. Age-related cerebral volume loss. Periventricular and subcortical white matter hypoattenuation, consistent with chronic microangiopathy. The visualized orbits appear grossly unremarkable. The calvarium is intact. The visualized paranasal sinuses and mastoid air cells are grossly clear. IMPRESSION: No acute intracranial hemorrhage, midline shift, or mass effect. Electronically signed by: Rosalio Vences MD 10/20/22 23:05 PM
--- NOTE | 2022-10-20 23:07 | CT Scan Report ---
Exam(s): CT C SPINE EXAM: CT Cervical Spine Without Intravenous Contrast CLINICAL HISTORY: Reason for exam: neck pain; fall from standing. TECHNIQUE: Axial computed tomography images of the cervical spine without intravenous contrast. CTDI is 26.09 mGy and DLP is 440.52 mGy-cm. Automated exposure control was utilized for the study. A dose lowering technique was utilized adhering to the principles of ALARA. COMPARISON: No relevant prior studies available. FINDINGS: The vertebral body heights are maintained. The craniocervical junction is intact. The atlanto-dens interval is maintained. The dens is intact. There is no spondylolisthesis. Multilevel cervical spondylosis and degenerative disc disease. Straightening of the cervical lordosis. Multilevel posterior cervical fusion and multilevel posterior laminectomy. No screw fracture or hardware failure. Diffuse osseous demineralization. IMPRESSION: No cervical spine fracture. No spondylolisthesis. Multilevel posterior fusion hardware and laminectomies. Electronically signed by: Rosalio Vences MD 10/20/22 23:05 PM
--- NOTE | 2022-10-20 23:08 | CT Scan Report ---
Exam(s): CT T SPINE EXAM: CT Thoracic Spine Without Intravenous Contrast CLINICAL HISTORY: Reason for exam: fall from standing; upper thoracic midline TTP. TECHNIQUE: Axial computed tomography images of the thoracic spine without intravenous contrast. CTDI is 38.35 mGy and DLP is 1250.09 mGy-cm. Automated exposure control was utilized for the study. A dose lowering technique was utilized adhering to the principles of ALARA. COMPARISON: No relevant prior studies available. FINDINGS: The vertebral body heights are maintained. The thoracic kyphosis is preserved. There is no spondylolisthesis. The posterior elements are maintained, without evidence of acute fracture. The pedicles are intact. Multilevel thoracic spondylosis and degenerative disc disease. Pedicle screws at L2. IMPRESSION: No acute fracture or subluxation of the thoracic spine. Electronically signed by: Rosalio Vences MD 10/20/22 23:06 PM
[2022-10-20] MEDS ORDERED: SODIUM CHLORIDE 0.9% 1000ML 1,000 ML IV ONE (23:27)
[2022-10-20 23:41] LABS: Appearance Urine Clear (Clear); Bacteria Urine Automated Negative (Negative); Bilirubin Urine Negative (Negative); Blood Urine Negative (Negative); Color Urine Yellow; Epithelial Cell Urine Auto >30 /lpf (0-5); Glucose Urine UA Negative (Negative); Ketones Urine Negative (Negative); Leukocyte Esterase Urine 1+ (Negative); Nitrite Urine Negative (Negative); Protein Urine Trace (Negative); RBC Urine Automated 0-4 /hpf (0-4); Specific Gravity Urine 1.021 (1.000-1.030); Urobilinogen Urine Negative (Negative); pH Urine 5.5 (4.5-7.5)
[2022-10-20 23:55] LABS: Amphetamines+Metham, Urine Neg (Neg); Barbiturates, Urine Neg (Neg); Benzodiazepine, Urine Neg (Neg); Cocaine, Urine Neg (Neg); MDMA (Ecstacy), Urine Neg (Neg); Methadone, Urine Neg (Neg); Opiate, Urine Neg (Neg); Phencyclidine, Urine Neg (Neg)
[2022-10-21] MEDS ORDERED: amLODIPine BESYLATE 5 MG TAB PO ONE (00:03)
--- NOTE | 2022-10-21 00:04 | History & Physical Report ---
Date of Service October 21, 2022 Assessment & Plan (1) Acute hyponatremia: Plan: Acute on chronic Possible hypovolemia given recent diuretic Rx, recent carpal tunnel surgery hx CAD status post stent hx PVD, patient follows with [facility] vascular surgery history of CVA hypertension, slightly elevated hyperlipidemia on statin Rx DM2 diet-controlled, well-controlled as of recent hemoglobin A1c of 5.9 last September 2022 hypothyroidism, euthyroid as of today's TSH chronic anemia, hemoglobin at baseline mood disorder, stable past tobacco abuse Medical telemetry Careful correction of sodium Hyponatremia work-up, fluid restriction of 2 L Recheck serum sodium after initial fluid bolus administered at the ER Nephrology consult Re: Acute on chronic hyponatremia Hold home diuretic until patient seen by nephrology Utilize Vicodin for breakthrough pain for carpal tunnel syndrome over tramadol given hyponatremia, sensitive for seizures ISS BG goal 1 10-1 40, carb count coverage DVT prophylaxis. Teds for now given recent head trauma, SCDs contraindicated history PVD Full code Patient son requesting updates from providers. Mr. Miguel Bustillo, contact #[phone]. Text document was generated using InstallFree voice recognition software. It may contain grammatical or spelling errors. Kindly contact undersigned for clarification of any documentation item in question. History of Present Illness Chief Complaint: Fall, dizziness Primary Care Provider: Naty Fang DO History obtained from patient, family, and records. Medical history significant for CAD status post stent, PVD, history of CVA, hypertension, hyperlipidemia, DM2 diet-controlled, hypothyroidism, chronic hyponatremia, chronic anemia (baseline hemoglobin of 11), GERD, mood disorder, past tobacco abuse. Last 2016 under Orthopedics spine service for elective cervical laminectomy. Seen at [facility] Nephrology office 3 weeks ago for follow-up visit. Furosemide prescribed for lower extremity edema. Improved leg swelling. Patient underwent outpatient right carpal tunnel surgery by [facility] orthopedics last week. Uncontrolled pain the last few days improved with outpatient tramadol Rx. Appetite not too good. Denies inordinate fluid intake. Patient felt lightheaded yesterday as she tried to get up from the couch at home. No vertigo. Posterior head trauma after falling backwards and striking the back of her head. No chest pain, no LOC, no unusual SOB. Patient brought to the ER for evaluation. 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 propoxyphene AdvReac Intermediate GI UPSET, Verified 10/20/22 23:42 "DISORIENTED" amoxicillin AdvReac Mild VOMITING, Verified 10/20/22 23:42 GI UPSET baclofen AdvReac Mild disoriented Verified 10/20/22 23:42 nausea capsaicin [Diclopak] AdvReac Mild disoriented Verified 10/20/22 23:42 nausea clavulanic acid AdvReac Mild VOMITING, Verified 10/20/22 23:42 GI UPSET diclofenac [Diclopak] AdvReac Mild disoriented Verified 10/20/22 23:42 nausea Diclopak AdvReac Mild disoriented Verified 06/22/16 00:52 nausea codeine AdvReac Unknown pruritis Verified 10/20/22 23:44 Home Medications Medication Instructions Recorded Confirmed Type amlodipine 2.5 mg tablet 2.5 mg PO HS 10/20/22 10/20/22 History aspirin 81 mg tablet,delayed 81 mg PO DAILY 10/20/22 10/21/22 History release atorvastatin 80 mg tablet 80 mg PO DAILY 10/20/22 10/20/22 History cholecalciferol (vitamin D3) 25 25 mcg PO DAILY 10/20/22 10/21/22 History mcg (1,000 unit) tablet (Vitamin D3) ezetimibe 10 mg tablet 10 mg PO QAM 10/20/22 10/20/22 History furosemide 20 mg tablet 20 mg PO UD 10/20/22 10/20/22 History hydrocodone 5 mg-acetaminophen 325 1 tab PO Q6H PRN pain,mild or 10/20/22 10/20/22 History mg tablet severe icosapent ethyl 1 gram capsule 2 g PO BIDM 10/20/22 10/20/22 History levothyroxine 112 mcg tablet 112 mcg PO DAILYBB 10/20/22 10/20/22 History lisinopril 20 mg tablet 40 mg PO QAM 10/20/22 10/20/22 History magnesium oxide 400 mg PO QAM 10/20/22 10/21/22 History metformin 500 mg tablet 500 mg PO QDB 10/20/22 10/20/22 History metoprolol succinate 25 mg 25 mg PO DAILY 10/20/22 10/20/22 History tablet,extended release 24 hr omeprazole 40 mg capsule,delayed 40 mg PO DAILYBB 10/20/22 10/20/22 History release ondansetron 4 mg disintegrating 4 mg PO Q8 PRN Nausea 10/20/22 10/20/22 History tablet oxcarbazepine 150 mg tablet 150 mg PO AMHS 10/20/22 10/20/22 History oxcarbazepine 300 mg tablet 300 mg PO AMHS 10/20/22 10/20/22 History pentoxifylline 400 mg 400 mg PO AMHS 10/20/22 10/20/22 History tablet,extended release topiramate 100 mg tablet 100 mg PO QID 10/20/22 10/20/22 History tramadol 50 mg tablet 50 mg PO Q6 PRN pain,moderate 10/20/22 10/20/22 History acetaminophen 325 mg tablet 650 mg PO Q6 PRN pain,mild 10/21/22 10/21/22 History mupirocin 2 % topical ointment 1 applic topical TID PRN when 10/21/22 10/21/22 History flaring pyridoxine (vitamin B6) 250 mg 250 mg PO DAILY 10/21/22 10/21/22 History tablet (Vitamin B-6) valacyclovir 1 gram tablet 1,000 mg PO Q12H PRN Cold Sores 10/21/22 10/21/22 History Past Med/Surg History Social History Smoking Status: Former smoker Hx Alcohol Use: No Hx Substance Use: No Preferred Language: Jordanian Communication Ability: Effective Automatic Glove 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 And Former Required: No Beliefs That Will Affect Care: None Current Living Situation: Alone Other Information That Helps Us Care for You: No Feels Safe at Home: Yes Safety Concerns: Feels Safe At This Time Assistive Devices: Cane, Denture - Upper, Denture - Lower, Scooter/Electric Scooter, Walker and Wheelchair Review of Systems Review of Systems: As per HPI, all other systems reviewed and negative Physical Exam Physical Exam: GENERAL: Comfortable, obese, pleasant, no respiratory distress SKIN: Pallor, warm HEENT: Pale palpebral conjunctivae, no ptosis, dry buccal mucosa NECK : Supple, short neck, no tenderness CHEST : CTA, no tenderness HEART : RRR, no obvious murmurs ABDOMEN: Some distention, nontender EXTREMITIES : Minimal LE swelling, no LE tenderness, subacute left ankle erythema as per patient, no other conspicuous deformities noted NEUROLOGIC : Coherent, no facial asymmetry, mild hearing impairment, gait and stance not assessed Results & Data Results & Data Vital Signs (Past 12 Hours) Vital Signs Temp Pulse Pulse Resp BP BP Pulse Ox 10/20/22 23:31 76 18 174/89 H 96 10/20/22 23:00 73 18 178/76 H 95 10/20/22 22:06 70 18 170/70 H 95 10/20/22 20:03 36.6 C 72 18 175/71 H 98 O2 Del Method 10/20/22 23:31 Room Air 10/20/22 23:00 Room Air 10/20/22 22:06 Room Air 10/20/22 20:03 Room Air Laboratory Results Laboratory Results WBC 6.49 K/ul (4.8-10.8) 10/20/22 20:35 RBC 3.71 M/uL (4.20-5.40) L 10/20/22 20:35 Hgb 11.5 g/dl (12.0-16.0) L 10/20/22 20:35 Hct 31.0 % (37.0-47.0) L 10/20/22 20:35 MCV 83.6 fL (80.0-100.0) 10/20/22 20:35 MCH 31.0 pg (25.0-34.0) 10/20/22 20:35 MCHC 37.1 g/dL (32.0-36.0) H 10/20/22 20:35 RDW Std Deviation 35.8 fL (36.4-46.3) L 10/20/22 20:35 RDW Coeff of Mine 11.8 % (11.5-14.5) 10/20/22 20:35 Plt Count 287 K/uL (130-400) 10/20/22 20:35 MPV 10.3 fL (9.4-12.4) 10/20/22 20:35 Immature Gran % (Auto) 0.6 % 10/20/22 20:35 Neut % (Auto) 70.0 % 10/20/22 20:35 Lymph % (Auto) 19.6 % 10/20/22 20:35 [place] % (Auto) 8.6 % 10/20/22 20:35 Eos % (Auto) 0.0 % 10/20/22 20:35 Baso % (Auto) 1.2 % 10/20/22 20:35 Neut # (Auto) 4.54 K/uL (1.40-6.50) 10/20/22 20:35 Lymph # (Auto) 1.27 K/uL (1.2-3.4) 10/20/22 20:35 [place] # (Auto) 0.56 K/uL (0.11-0.59) 10/20/22 20:35 Eos # (Auto) 0.00 K/uL (0-0.50) 10/20/22 20:35 Baso # (Auto) 0.08 K/uL (0-0.2) 10/20/22 20:35 Immature Gran # (Auto) 0.04 K/uL (0.01-0.20) 10/20/22 20:35 Sodium 114 mmol/L (136-145) L* 10/20/22 20:35 Potassium 4.1 mmol/L (3.5-5.1) 10/20/22 20:35 Chloride 83 mmol/L (98-107) L 10/20/22 20:35 Carbon Dioxide 24 mmol/L (21-32) 10/20/22 20:35 Anion Gap 7 (3-11) 10/20/22 20:35 BUN 17 mg/dl (6-23) 10/20/22 20:35 Creatinine 1.13 mg/dl (0.6-1.2) 10/20/22 20:35 Est Cr Clr Drug Dosing 38.5 ml/min 06/16/23 20:35 Est GFR ( Amer) 54.3 ml/min 10/20/22 20:35 Est GFR (Non-Af Amer) 46.8 ml/min 10/20/22 20:35 BUN/Creatinine Ratio 15.0 (10-20) 10/20/22 20:35 Glucose 84 mg/dl (70-99(Fasting)) 10/20/22 20:35 Osmolality 243 mOsm/kg (280-300) L 10/20/22 20:35 Calcium 9.2 mg/dl (8.6-10.3) 10/20/22 20:35 Total Bilirubin 0.5 mg/dl (0.2-1.0) 10/20/22 20:35 AST 61 U/L (13-39) H 10/20/22 20:35 ALT 40 U/L (7-52) 10/20/22 20:35 Alkaline Phosphatase 75 U/L (34-104) 10/20/22 20:35 Troponin I High Sens 10.1 pg/ml (0-14) 10/20/22 20:35 Total Protein 6.6 gm/dl (6.0-8.3) 10/20/22 20:35 Albumin 4.3 gm/dl (3.4-5.0) 10/20/22 20:35 Globulin 2.3 gm/dl (2.5-4.0) L 10/20/22 20:35 Albumin/Globulin Ratio 1.9 (0.9-2) 10/20/22 20:35 TSH 3.506 uIu/ml (0.300-4.500) 10/20/22 20:35 Urine Color Yellow 10/20/22 23:20 Urine Appearance Clear (Clear) 10/20/22 23:20 Urine pH 5.5 (4.5-7.5) 10/20/22 23:20 Ur Specific [place] 1.021 (1.000-1.030) 10/20/22 23:20 Urine Protein Trace (Negative) H 10/20/22 23:20 Urine Glucose (UA) Negative (Negative) 10/20/22 23:20 Urine Ketones Negative (Negative) 10/20/22 23:20 Urine Blood Negative (Negative) 10/20/22 23:20 Urine Nitrite Negative (Negative) 10/20/22 23:20 Urine Bilirubin Negative (Negative) 10/20/22 23:20 Urine Urobilinogen Negative (Negative) 10/20/22 23:20 Ur Leukocyte Esterase 1+ (Negative) H 10/20/22 23:20 Urine WBC (Auto) 5-10 /hpf (0-5) H 10/20/22 23:20 Urine RBC (Auto) 0-4 /hpf (0-4) 10/20/22 23:20 U Hyaline Cast (Auto) 1-5 /lpf (0-5) 10/20/22 23:20 U Epithel Cells (Auto) >30 /lpf (0-5) H 10/20/22 23:20 Urine Bacteria (Auto) Negative (Negative) 10/20/22 23:20 Urine Osmolality 428 mOsm/kg (500-800) L 10/20/22 23:20 Ur Random Sodium 41 mmol/L 10/20/22 23:20 Urine Opiates Screen Neg (Neg) 10/20/22 23:20 Ur Methadone, Qual Neg (Neg) 10/20/22 23:20 Urine Barbiturates Neg (Neg) 10/20/22 23:20 Ur Phencyclidine (PCP) Neg (Neg) 10/20/22 23:20 U Amphetamin/Meth Scrn Neg (Neg) 10/20/22 23:20 MDMA (Ecstasy) Screen Neg (Neg) 10/20/22 23:20 U Benzodiazepines Scrn Neg (Neg) 10/20/22 23:20 Ur Cocaine Metabolite Neg (Neg) 10/20/22 23:20 U Marijuana (THC) Screen Neg (Neg) 10/20/22 23:20 SARS-CoV-2, RNA, NAAT NEGATIVE (NEGATIVE) 10/20/22 22:[address] 10/20/22 21:07 Exam(s): CT C SPINE EXAM: CT Cervical Spine Without Intravenous Contrast CLINICAL HISTORY: Reason for exam: neck pain; fall from standing. TECHNIQUE: Axial computed tomography images of the cervical spine without intravenous contrast. CTDI is 26.09 mGy and DLP is 440.52 mGy-cm. Automated exposure control was utilized for the study. A dose lowering technique was utilized adhering to the principles of ALARA. COMPARISON: No relevant prior studies available. FINDINGS: The vertebral body heights are maintained. The craniocervical junction is intact. The atlanto-dens interval is maintained. The dens is intact. There is no spondylolisthesis. Multilevel cervical spondylosis and degenerative disc disease. Straightening of the cervical lordosis. Multilevel posterior cervical fusion and multilevel posterior laminectomy. No screw fracture or hardware failure. Diffuse osseous demineralization. IMPRESSION: No cervical spine fracture. No spondylolisthesis. Multilevel posterior fusion hardware and laminectomies. Electronically signed by: Rosalio Vences MD 10/20/22 23:[address] 10/20/22 21:07 Exam(s): CT HEAD Without Contrast EXAM: CT Head Without Intravenous Contrast CLINICAL HISTORY: Reason for exam: Fall from standing; on aspirin. TECHNIQUE: Axial computed tomography images of the head/brain without intravenous contrast. CTDI is 38.99 mGy and DLP is 624.41 mGy-cm. Automated exposure control was utilized for the study. A dose lowering technique was utilized adhering to the principles of ALARA. COMPARISON: No relevant prior studies available. FINDINGS: No acute intracranial hemorrhage. No midline shift or mass effect. The territorial hernandez-white matter differentiation is maintained throughout. Age-related cerebral volume loss. Periventricular and subcortical white matter hypoattenuation, consistent with chronic microangiopathy. The visualized orbits appear grossly unremarkable. The calvarium is intact. The visualized paranasal sinuses and mastoid air cells are grossly clear. IMPRESSION: No acute intracranial hemorrhage, midline shift, or mass effect. Electronically signed by: Rosalio Vences MD 10/20/22 23:[address] 10/20/22 21:07 Exam(s): CT T SPINE EXAM: CT Thoracic Spine Without Intravenous Contrast CLINICAL HISTORY: Reason for exam: fall from standing; upper thoracic midline TTP. TECHNIQUE: Axial computed tomography images of the thoracic spine without intravenous contrast. CTDI is 38.35 mGy and DLP is 1250.09 mGy-cm. Automated exposure control was utilized for the study. A dose lowering technique was utilized adhering to the principles of ALARA. COMPARISON: No relevant prior studies available. FINDINGS: The vertebral body heights are maintained. The thoracic kyphosis is preserved. There is no spondylolisthesis. The posterior elements are maintained, without evidence of acute fracture. The pedicles are intact. Multilevel thoracic spondylosis and degenerative disc disease. Pedicle screws at L2. IMPRESSION: No acute fracture or subluxation of the thoracic spine. Electronically signed by: Rosalio Vences MD 10/20/22 23:06 PM Diagnostic Findings Chest x-ray as per my interpretation borderline cardiomegaly EKG as per my interpretation : Rate 70, NSR, normal axis, septal infarct, no ischemia
[2022-10-21 00:57] LABS: Magnesium 1.2 mg/dl (1.7-2.4)
[2022-10-21] MEDS ORDERED: CARBOHYDRATES FOR HYPOGLYCEMIA PO PRN ×2 (01:30→04:26)
[2022-10-21] MEDS ORDERED: GLUCOSE 40% GEL 15 GM TUBE PO PRN ×2 (01:30→04:26)
[2022-10-21] MEDS ORDERED: GLUCAGON FOR INJ 1 MG VIAL SQ PRN ×2 (01:30→04:26)
[2022-10-21] MEDS ORDERED: DEXTROSE 50% 50 ML SYRINGE IV PRN ×2 (01:30→04:26)
[2022-10-21] MEDS ORDERED: GLUCOSE 10 TAB/TUBE PO PRN ×2 (01:30→04:26)
[2022-10-21] MEDS: INSULIN ASPART PER UNIT CHARGE SC SCH ×5 (02:05→20:36)
[2022-10-21] MEDS: PANTOprazole 40 MG TAB PO SCH (02:42)
[2022-10-21] MEDS: LEVOTHYROXINE SODIUM 112 MCG TABLET PO SCH (02:42)
[2022-10-21] MEDS: HYDROCODONE/ACETAMOPHEN 5/325MG TAB PO PRN ×4 (02:42→23:00)
[2022-10-21 04:05] LABS: Basophils # (auto) 0.05 K/uL (0-0.2); Basophils % (auto) 0.8 %; Hematocrit (blood only) 27.3 % (37.0-47.0); Hemoglobin 10.2 g/dl (12.0-16.0); Immature Granulocytes # (auto) 0.03 K/uL (0.01-0.20); Immature Granulocytes % (auto) 0.5 %; Lymphocytes # (auto) 1.43 K/uL (1.2-3.4); Lymphocytes % (auto) 23.9 %; Mean Corpuscular Hemoglobin 31.4 pg (25.0-34.0); Mean Corpuscular Hgb Conc 37.4 g/dL (32.0-36.0); Mean Platelet Volume 9.8 fL (9.4-12.4); Monocytes # (auto) 0.54 K/uL (0.11-0.59); Neutrophils # (auto) 3.93 K/uL (1.40-6.50); Neutrophils % (auto) 65.8 %; Platelet Count 241 K/uL (130-400); RDW Coefficient of Variation 11.6 % (11.5-14.5); RDW Standard Deviation 35.6 fL (36.4-46.3); Red Blood Count 3.25 M/uL (4.20-5.40); White Blood Count 5.98 K/ul (4.8-10.8)
[2022-10-21 04:23] LABS: BUN Creatinine Ratio 15.8 (10-20); Calcium 8.2 mg/dl (8.6-10.3); Creatinine Clr Calc Pharmacy 44.9 ml/min; Est GFR (Non-African American) 57.8 ml/min; Potassium 3.9 mmol/L (3.5-5.1)
[2022-10-21] MEDS: [UNRECOGNIZED DRUG - REMARK] SCH ×3 (07:48→22:10)
--- NOTE | 2022-10-21 08:32 | XRay Report ---
SINGLE VIEW CHEST CLINICAL HISTORY: Hyponatremia FINDINGS: An AP, portable, upright chest radiograph is compared to study dated 06/22/2016. The cardiom ediastinal silhouette is top normal for projection noting atherosclerotic calcification of the thorac ic aorta. Chronic interstitial thickening similar to previous. The lungs and pleural spaces are clear noting bibasilar scarring/atelectasis. No pneumothorax is seen. The skeletal structures are osteopen ic. The bony thorax is grossly intact. Fusion hardware is seen in the lower cervical spine. IMPRESSION: No acute cardiopulmonary abnormality. ACT 112: Negative or not required by law. Electronically signed by: Manoj Burns M.D. 10/21/2022 8:31 AM
[2022-10-21] MEDS ORDERED: lisinopril 40 MG TAB PO SCH (09:00)
[2022-10-21] MEDS: TOPIRAMATE 100 MG TAB PO SCH ×4 (09:45→20:37)
[2022-10-21] MEDS: OXcarbazepine 150 MG TABLET PO SCH ×4 (09:45→20:39)
[2022-10-21] MEDS: PENTOXIFYLLINE 400MG EXT REL TAB PO SCH ×2 (09:45→20:40)
[2022-10-21] MEDS: ATORVASTATIN 40 MG TAB PO SCH (09:46)
[2022-10-21] MEDS: METOPROLOL SUCC 25MG EXT REL TAB PO SCH (09:46)
[2022-10-21] MEDS: ASPIRIN 81 MG ECTAB PO SCH (09:46)
[2022-10-21] MEDS: EZETIMIBE 10 MG TABLET PO SCH (09:46)
--- NOTE | 2022-10-21 09:53 | Nephrology Consultation ---
Date of Consultation October 21, 2022 Assessment & Plan (1) Acute hyponatremia: Patient with hyponatremia likely due to syndrome of inappropriate ADH. Urine osmolality was 428 and urine sodium of 41. Admission sodium was 114 and has improved to 119 this morning. Target rate of rise is 6 in 24 hours. Target sodium is about 120 by today evening. -No need for IV fluids. -Fluid restriction of 1.5 L daily. -Monitor sodium every 6 hourly today and twice daily from tomorrow (2) Fall from standing: Likely multifactorial including hyponatremia and chronic arthritis and back pain. Continue supportive management with pain control and physical therapy. History of Present Illness Reason for Consultation: Hyponatremia Requesting Physician: Dr. Canela Attending Physician: Fredy King MD History of Present Illness This is 76-year-old female with history of osteoarthritis, cervical spinal stenosis, back pain, chronic nerve pain on Trileptal and Topamax, coronary disease status post stent who was admitted yesterday after a fall found to have hyponatremia with sodium of 114. Patient recently had carpal tunnel surgery on her right wrist about a week ago. Preop labs also showed hyponatremia. She was discharged on hydrocodone for few days and later transitioned to tramadol. Since the surgery she has been having nausea and poor p.o. intake. She is also constipated and has not moved her bowels for about 4 days. She has not been drinking much either. She still has severe pain in the right wrist. In the emergency room she was given 1 L of normal saline. Sodium was improved to 119 this morning. Urine osmolality was 428 and urine sodium of 41. Patient lives alone in [place] she has 3 adult sons. She has help from neighbors. 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 propoxyphene AdvReac Intermediate GI UPSET, Verified 10/20/22 23:42 "DISORIENTED" amoxicillin AdvReac Mild VOMITING, Verified 10/20/22 23:42 GI UPSET baclofen AdvReac Mild disoriented Verified 10/20/22 23:42 nausea capsaicin [Diclopak] AdvReac Mild disoriented Verified 10/20/22 23:42 nausea clavulanic acid AdvReac Mild VOMITING, Verified 10/20/22 23:42 GI UPSET diclofenac [Diclopak] AdvReac Mild disoriented Verified 10/20/22 23:42 nausea Diclopak AdvReac Mild disoriented Verified 06/22/16 00:52 nausea codeine AdvReac Unknown pruritis Verified 10/20/22 23:44 Home Medications Medication Instructions Recorded Confirmed Type amlodipine 2.5 mg tablet 2.5 mg PO HS 10/20/22 10/20/22 History aspirin 81 mg tablet,delayed 81 mg PO DAILY 10/20/22 10/21/22 History release atorvastatin 80 mg tablet 80 mg PO DAILY 10/20/22 10/20/22 History cholecalciferol (vitamin D3) 25 25 mcg PO DAILY 10/20/22 10/21/22 History mcg (1,000 unit) tablet (Vitamin D3) ezetimibe 10 mg tablet 10 mg PO QAM 10/20/22 10/20/22 History furosemide 20 mg tablet 20 mg PO UD 10/20/22 10/20/22 History hydrocodone 5 mg-acetaminophen 325 1 tab PO Q6H PRN pain,mild or 10/20/22 10/20/22 History mg tablet severe icosapent ethyl 1 gram capsule 2 g PO BIDM 10/20/22 10/20/22 History levothyroxine 112 mcg tablet 112 mcg PO DAILYBB 10/20/22 10/20/22 History lisinopril 20 mg tablet 40 mg PO QAM 10/20/22 10/20/22 History magnesium oxide 400 mg PO QAM 10/20/22 10/21/22 History metformin 500 mg tablet 500 mg PO QDB 10/20/22 10/20/22 History metoprolol succinate 25 mg 25 mg PO DAILY 10/20/22 10/20/22 History tablet,extended release 24 hr omeprazole 40 mg capsule,delayed 40 mg PO DAILYBB 10/20/22 10/20/22 History release ondansetron 4 mg disintegrating 4 mg PO Q8 PRN Nausea 10/20/22 10/20/22 History tablet oxcarbazepine 150 mg tablet 150 mg PO AMHS 10/20/22 10/20/22 History oxcarbazepine 300 mg tablet 300 mg PO AMHS 10/20/22 10/20/22 History pentoxifylline 400 mg 400 mg PO AMHS 10/20/22 10/20/22 History tablet,extended release topiramate 100 mg tablet 100 mg PO QID 10/20/22 10/20/22 History tramadol 50 mg tablet 50 mg PO Q6 PRN pain,moderate 10/20/22 10/20/22 History acetaminophen 325 mg tablet 650 mg PO Q6 PRN pain,mild 10/21/22 10/21/22 History mupirocin 2 % topical ointment 1 applic topical TID PRN when 10/21/22 10/21/22 History flaring pyridoxine (vitamin B6) 250 mg 250 mg PO DAILY 10/21/22 10/21/22 History tablet (Vitamin B-6) valacyclovir 1 gram tablet 1,000 mg PO Q12H PRN Cold Sores 10/21/22 10/21/22 History Patient History Social History Smoking Status: Former smoker Hx Alcohol Use: No Hx Substance Use: No Preferred Language: Israeli Communication Ability: Effective 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 Required: No Beliefs That Will Affect Care: None Current Living Situation: Alone Other Information That Helps Us Care for You: No Feels Safe at Home: Yes Safety Concerns: Feels Safe At This Time Assistive Devices: Cane, Denture - Upper, Denture - Lower, Scooter/Electric Scooter, Walker and Wheelchair Review of Systems Review of Systems: All other systems were reviewed and negative except as noted in HPI Physical Exam Physical Exam: General exam: Appears comfortable, no acute distress HEENT: Pupils are equal and reactive to light Neck: No JVD, neck is supple trachea is midline Respiratory system: Clear breath sounds bilaterally. Gastrointestinal: Abdomen is soft, non distended, non tender, bowel sounds are present CVS: Regular rate and rhythm. No murmurs, rubs or gallops Musculoskeletal: No joint or muscle tenderness Extremities: Non tender, 1+ edema, peripheral pulses are present Neuro: Oriented, no tremors, no focal neurological deficits Skin: No rashes Results & Data Vital Signs (Past 12 Hours) Vital Signs Temp Pulse Pulse Resp BP BP Pulse Ox 10/21/22 08:26 37.0 C 76 18 139/74 96 10/21/22 01:27 76 10/21/22 02:46 165/64 H 10/21/22 01:33 36.5 C 79 16 102/64 97 10/21/22 00:30 66 16 164/82 H 95 10/21/22 00:20 70 19 184/90 H 97 10/20/22 23:31 76 18 174/89 H 96 10/20/22 23:00 73 18 178/76 H 95 10/20/22 22:06 70 18 170/70 H 95 O2 Del Method 10/21/22 08:26 Room Air 10/21/22 01:27 10/21/22 02:46 10/21/22 01:33 Room Air 10/21/22 00:30 Room Air 10/21/22 00:20 Room Air 10/20/22 23:31 Room Air 10/20/22 23:00 Room Air 10/20/22 22:06 Room Air Laboratory Results 10/21/22 08:07 10/20/22 10/20/22 10/21/22 20:35 20:35 03:48 WBC 6.49 5.98 RBC 3.71 L 3.25 L MCV 83.6 84.0 MCH 31.0 31.4 MCHC 37.1 H 37.4 H RDW Std Deviation 35.8 L 35.6 L RDW Coeff of Mine 11.8 11.6 Plt Count 287 241 MPV 10.3 9.8 Albumin 4.3
[2022-10-21] MEDS ORDERED: ALUMINUM/MAGNESIUM SUSP 30 ML UDC PO STA (10:56)
[2022-10-21] MEDS: DOCUSATE SODIUM 100 MG CAP PO SCH ×2 (11:07→20:37)
--- NOTE | 2022-10-21 12:48 | Hospitalist Progress Note ---
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 She is being managed for the following: Acute on chronic hyponatremia Likely SIADH Patient presents with fall and found to be hyponatremic with Na of 114 at presentation. Urine osmolality 428 and urine sodium 41, likely SIADH Has history of hyponatremia [outpatient chart review with sodium level of 127 in September and October of 2021] complicated by poor appetite/tramadol. Sodium level improving slowly, target of 120 by today evening. Nephrology on board, DC IV fluids/fluid restriction of 1.5 L per day/monitor sodium every 6 hours. Home diuretic on hold. Hold home tramadol, use Vicodin instead for severe pain. For mild to moderate pain. Fall Generalized weakness Ambulatory dysfunction From advanced age, complicated with recent carpal tunnel surgery, hyponatremia and poor appetite. Patient uses walker PT/OT, fall precaution Other chronic medical conditions: Resume/continue with home meds as able CAD status post stent PVD, patient follows with [facility] vascular surgery history of CVA hypertension, slightly elevated hyperlipidemia on statin Rx DM2 diet-controlled, well-controlled as of recent hemoglobin A1c of 5.9 last September 2022 hypothyroidism, euthyroid as of this admission's TSH chronic anemia, hemoglobin at baseline mood disorder, stable past tobacco abuse DVT prophylaxis. Teds for now given recent head trauma, SCDs contraindicated history PVD Full code Patient son Mr. Miguel Bustillo, contact #[phone]. Admission and Anticipated Discharge Date Admission Date: October 21, 2022 Subjective Patient seen and examined at bedside as a follow-up of acute hyponatremia. Patient was sitting up in chair, on room air, reports no new acute event overnight, reports poor appetite and ate very little in the morning, fingerstick glucose has been low normal, as needed dextrose ordered, RN communicated to use when needed. Patient reports falling yesterday after losing balance and having funny sensation in her head. Patient reports having poor appetite since last 7 to 10 days after the surgery. Has normal bowel in the last 3 to 4 days but does not want any laxatives. Okay with a stool softener for now. Physical Exam Physical Exam: GENERAL: Alert and oriented x3. NAD, on RA. Appear weak. HEENT: No pallor, no icterus. Pupils equal, round and reactive to light. Oral mucosa moist. NECK: No JVD, no neck masses. HEART: S1 and S2 heard. Regular rate and rhythm. No murmur, no gallop. RESPIRATORY SYSTEM: Normal AP diameter. No accessory muscle use. No wheezing, no crackles. ABDOMEN: Soft, bowel sounds present, nontender, no distention. CENTRAL NERVOUS SYSTEM: No facial droop. Speech is clear. Obeys simple commands. Moves extremities. EXTREMITIES: No edema, no erythema seen. Rt hand w/ dressing c/d/i. Results & Data Results & Data Vital Signs (Past 12 Hours) Vital Signs Temp Pulse Pulse Resp BP Pulse Ox O2 Del Method 10/21/22 12:08 36.6 C 74 18 158/79 H 96 Room Air 10/21/22 08:26 37.0 C 76 18 139/74 96 Room Air 10/21/22 01:27 76 10/21/22 02:46 165/64 H 10/21/22 01:33 36.5 C 79 16 102/64 97 Room Air
--- NOTE | 2022-10-21 13:14 | Electrocardiogram Report ---
Test Reason : Blood Pressure : / mmHG Vent. Rate : 069 BPM Atrial Rate : 069 BPM P-R Int : 172 ms QRS Dur : 076 ms QT Int : 396 ms P-R-T Axes : 070 041 069 degrees QTc Int : 424 ms Normal sinus rhythm Septal infarct , age undetermined Abnormal ECG When compared with ECG of 22-JUN-2016 00:35, Septal infarct is now Present ST elevation now present in Inferior leads Confirmed by Alec Bhat ([id number]) on 10/21/2022 1:13:34 PM Referred By: REFERRED SELF Confirmed By:Alec Bhat
[2022-10-21] MEDS ORDERED: UREA (UREA-NA) 15 GM PACK PO SCH (16:30)
[2022-10-21] MEDS ORDERED: TAMSULOSIN HCL 0.4 MG CAP PO ONE (16:45)
[2022-10-21] MEDS: ONDANSETRON INJ 2 MG/ML 2 ML VIAL IV PRN (16:58)
[2022-10-21 20:33] LABS: BUN Creatinine Ratio 32.7 (10-20); Calcium 8.8 mg/dl (8.6-10.3); Creatinine Clr Calc Pharmacy 38.8 ml/min; Est GFR (African American) 56.1 ml/min; Est GFR (Non-African American) 48.4 ml/min; Potassium 4.3 mmol/L (3.5-5.1)
[2022-10-21] MEDS: amLODIPine BESYLATE 5 MG TAB PO SCH (20:40)
[2022-10-22 03:16] LABS: BUN Creatinine Ratio 28.2 (10-20); Calcium 8.6 mg/dl (8.6-10.3); Creatinine Clr Calc Pharmacy 34.4 ml/min; Est GFR (African American) 48.5 ml/min; Est GFR (Non-African American) 41.9 ml/min; Potassium 4.2 mmol/L (3.5-5.1)
[2022-10-22] MEDS ORDERED: SODIUM CHLORIDE 0.9% 500 ML IV ONE (03:22)
--- NOTE | 2022-10-22 03:24 | Communication Note ---
Date of Service: October 22, 2022 Made aware of 2 AM labs Serum sodium 119 from 114 (10/20) Serum creatinine 1.24 AP ARF, hyponatremia NSS 60 cc/h for 500 cc Hold lisinopril for now
[2022-10-22] MEDS: UREA (UREA-NA) 15 GM PACK PO SCH ×2 (03:32→19:36)
[2022-10-22] MEDS: LEVOTHYROXINE SODIUM 112 MCG TABLET PO SCH (06:13)
[2022-10-22] MEDS: PANTOprazole 40 MG TAB PO SCH (06:13)
[2022-10-22] MEDS: INSULIN ASPART PER UNIT CHARGE SC SCH ×4 (08:56→20:56)
[2022-10-22] MEDS: TOPIRAMATE 100 MG TAB PO SCH ×4 (08:57→19:37)
[2022-10-22] MEDS: ASPIRIN 81 MG ECTAB PO SCH (08:58)
[2022-10-22] MEDS: EZETIMIBE 10 MG TABLET PO SCH (08:58)
[2022-10-22] MEDS: ATORVASTATIN 40 MG TAB PO SCH (08:58)
[2022-10-22] MEDS: METOPROLOL SUCC 25MG EXT REL TAB PO SCH (08:58)
[2022-10-22] MEDS: DOCUSATE SODIUM 100 MG CAP PO SCH ×2 (08:58→19:37)
[2022-10-22] MEDS: PENTOXIFYLLINE 400MG EXT REL TAB PO SCH ×2 (08:58→19:37)
[2022-10-22] MEDS: OXcarbazepine 150 MG TABLET PO SCH ×2 (09:01)
[2022-10-22 09:22] LABS: Hematocrit (blood only) 28.5 % (37.0-47.0); Hemoglobin 10.4 g/dl (12.0-16.0); Mean Corpuscular Hemoglobin 31.4 pg (25.0-34.0); Mean Corpuscular Hgb Conc 36.5 g/dL (32.0-36.0); Mean Corpuscular Volume 86.1 fL (80.0-100.0); Mean Platelet Volume 10.3 fL (9.4-12.4); Platelet Count 269 K/uL (130-400); RDW Coefficient of Variation 12.1 % (11.5-14.5); RDW Standard Deviation 38.5 fL (36.4-46.3); Red Blood Count 3.31 M/uL (4.20-5.40); White Blood Count 5.41 K/ul (4.8-10.8)
[2022-10-22 09:38] LABS: BUN Creatinine Ratio 38.9 (10-20); Creatinine Clr Calc Pharmacy 33.5 ml/min; Est GFR (African American) 47.6 ml/min; Est GFR (Non-African American) 41.1 ml/min; Magnesium 1.4 mg/dl (1.7-2.4); Phosphorus 3.4 mg/dl (2.5-4.9); Potassium 4.3 mmol/L (3.5-5.1)
--- NOTE | 2022-10-22 09:52 | Nephrology Progress Note ---
Date of Service October 22, 2022 Assessment & Plan (1) Acute hyponatremia: Plan: Patient with hyponatremia likely due to syndrome of inappropriate ADH. Urine osmolality was 428 and urine sodium of 41. Admission sodium was 114 and has improved to 120 this morning. Target rate of rise is 6 in 24 hours. -Allow extra salt on the food. Patient encouraged to eat 3 regular meals with high-protein. -Continue urea 15 g twice daily -No need for IV fluids. -Fluid restriction of 1.5 L daily. -Monitor sodium twice daily (2) Fall from standing: Plan: Likely multifactorial including hyponatremia and chronic arthritis and back pain. We will hold Trileptal as it might be contributing to hyponatremia. Patient is nervous about worsening pain. Consider starting on tramadol as needed. continue supportive management with pain control and physical therapy. Admission and Anticipated Discharge Date Admission Date: October 21, 2022 Subjective She feels better today. Nausea has improved. Sodium is up to 120. He is not eating well due to bland food without salt. Complains of pain in the right hand and back pain. Review of Systems Review of Systems: All other systems were reviewed and negative except as noted in HPI Physical Exam Physical Exam: General exam: Appears comfortable, no acute distress HEENT: Pupils are equal and reactive to light Neck: No JVD, neck is supple trachea is midline Respiratory system: Clear breath sounds bilaterally. Gastrointestinal: Abdomen is soft, non distended, non tender, bowel sounds are present CVS: Regular rate and rhythm. No murmurs, rubs or gallops Musculoskeletal: No joint or muscle tenderness Extremities: Non tender, 1+ edema, peripheral pulses are present Neuro: Oriented, no tremors, no focal neurological deficits Skin: No rashes Results & Data Vital Signs (Past 12 Hours) Vital Signs Temp Pulse Pulse Resp BP BP Pulse Ox 10/22/22 09:39 66 10/22/22 07:47 36.5 C 72 18 117/67 97 10/22/22 03:50 36.5 C 72 18 103/57 L 98 10/22/22 00:16 79 10/21/22 22:56 36.7 C 79 18 98/51 L 94 O2 Del Method 10/22/22 09:39 10/22/22 07:47 Room Air 10/22/22 03:50 Room Air 10/22/22 00:16 10/21/22 22:56 Room Air Laboratory Results 10/22/22 07:52 10/22/22 10/22/22 07:52 07:52 WBC 5.41 RBC 3.31 L MCV 86.1 MCH 31.4 MCHC 36.5 H RDW Std Deviation 38.5 RDW Coeff of Mine 12.1 Plt Count 269 MPV 10.3 Phosphorus 3.4
[2022-10-22] MEDS: [UNRECOGNIZED DRUG - REMARK] SCH ×3 (11:55→22:40)
[2022-10-22] MEDS: MAGNESIUM SULFATE / D5W 1 GM/100 ML BAG IV SCH ×2 (12:08→14:31)
--- NOTE | 2022-10-22 12:11 | Hospitalist Progress Note ---
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 She is being managed for the following: Acute on chronic hyponatremia Likely SIADH Patient presents with fall and found to be hyponatremic with Na of 114 at presentation. Urine osmolality 428 and urine sodium 41, likely SIADH Has history of hyponatremia [outpatient chart review with sodium level of 127 in September and October of 2021; it was low normal prior to that] complicated by poor appetite/tramadol/trileptal (dose was recently increased from 300 to 450 around the hand Sx time per pt). Of note, pt follows pain Mx and is on trileptal and topamax for about a year for neuropathic pain; trileptal dose was increased recently. Trileptal contributes to SIADH and topamax contributes to anorexia; will consult pain management for recs for alternatives. Sodium level improving slowly, pt w/ poor appetite. Nephrology on board, No IV fluids/fluid restriction of 1.5 L per day. Encourage diet/increase protein intake. Home diuretic on hold. Hold home tramadol, use Vicodin instead for severe pain. For mild to moderate pain. Fall Generalized weakness Ambulatory dysfunction From advanced age, complicated with recent carpal tunnel surgery, hyponatremia and poor appetite. Patient uses walker PT/OT, fall precaution Other chronic medical conditions: Resume/continue with home meds as able CAD status post stent PVD, patient follows with [facility] vascular surgery history of CVA hypertension, slightly elevated hyperlipidemia on statin Rx DM2 diet-controlled, well-controlled as of recent hemoglobin A1c of 5.9 last September 2022 hypothyroidism, euthyroid as of this admission's TSH chronic anemia, hemoglobin at baseline mood disorder, stable past tobacco abuse DVT prophylaxis: Hep SC Full code Patient son Mr. Miguel Bustillo, contact #[phone]. Admission and Anticipated Discharge Date Admission Date: October 21, 2022 Subjective Patient seen and examined at bedside as a follow-up of acute hyponatremia. Patient lying in bed, on room air, reports no new acute event overnight, reports poor appetite and ate very little in the morning/doesn't like bland food without salt. Patient reports feeling better, sodium is coming up. Patient reports having poor appetite since last 7 to 10 days after the surgery. MOving bowels ok. Physical Exam Physical Exam: GENERAL: Alert and oriented x3. NAD, on RA. Appear weak. HEENT: No pallor, no icterus. Pupils equal, round and reactive to light. Oral mucosa moist. NECK: No JVD, no neck masses. HEART: S1 and S2 heard. Regular rate and rhythm. No murmur, no gallop. RESPIRATORY SYSTEM: Normal AP diameter. No accessory muscle use. No wheezing, no crackles. ABDOMEN: Soft, bowel sounds present, nontender, no distention. CENTRAL NERVOUS SYSTEM: No facial droop. Speech is clear. Obeys simple commands. Moves extremities. EXTREMITIES: No edema, no erythema seen. Rt hand w/ dressing c/d/i. Results & Data Results & Data Vital Signs (Past 12 Hours) Vital Signs Temp Pulse Pulse Resp BP BP Pulse Ox 10/22/22 11:52 36.4 C L 78 20 130/74 98 10/22/22 09:39 66 10/22/22 07:47 36.5 C 72 18 117/67 97 10/22/22 03:50 36.5 C 72 18 103/57 L 98 10/22/22 00:16 79 O2 Del Method 10/22/22 11:52 Room Air 10/22/22 09:39 10/22/22 07:47 Room Air 10/22/22 03:50 Room Air 10/22/22 00:16
[2022-10-22 14:45] LABS: BUN Creatinine Ratio 30.6 (10-20); Calcium 9.5 mg/dl (8.6-10.3); Creatinine Clr Calc Pharmacy 29.3 ml/min; Est GFR (African American) 40.5 ml/min; Est GFR (Non-African American) 34.9 ml/min; Potassium 4.4 mmol/L (3.5-5.1)
[2022-10-22] MEDS: amLODIPine BESYLATE 5 MG TAB PO SCH (19:37)
[2022-10-22] MEDS: HEPARIN SOD 5,000 UNIT/0.5 ML VIAL SQ SCH (19:37)
[2022-10-22 21:33] LABS: Calcium 9.3 mg/dl (8.6-10.3); Potassium 4.2 mmol/L (3.5-5.1)
[2022-10-22 21:39] LABS: BUN Creatinine Ratio 38.2 (10-20); Creatinine Clr Calc Pharmacy 34.4 ml/min; Est GFR (Non-African American) 42.3 ml/min
[2022-10-22] MEDS: HYDROCODONE/ACETAMOPHEN 5/325MG TAB PO PRN (22:44)
[2022-10-23] MEDS: LEVOTHYROXINE SODIUM 112 MCG TABLET PO SCH (05:27)
[2022-10-23] MEDS: PANTOprazole 40 MG TAB PO SCH (05:27)
[2022-10-23] MEDS: HYDROCODONE/ACETAMOPHEN 5/325MG TAB PO PRN ×2 (05:29→17:16)
[2022-10-23 07:31] LABS: BUN Creatinine Ratio 40.2 (10-20); Calcium 9.5 mg/dl (8.6-10.3); Creatinine Clr Calc Pharmacy 35.9 ml/min; Est GFR (African American) 52.1 ml/min; Est GFR (Non-African American) 44.9 ml/min; Magnesium 1.7 mg/dl (1.7-2.4); Phosphorus 2.8 mg/dl (2.5-4.9); Potassium 4.3 mmol/L (3.5-5.1)
--- NOTE | 2022-10-23 09:00 | Pain Management Consultation ---
Date of Consultation October 23, 2022 Assessment & Plan (1) Spinal stenosis in cervical region: (2) Osteoarthritis: (3) Acute hyponatremia: (4) Fall from standing: (5) Back pain: (6) Ambulatory dysfunction: Plan * I agree to hold the Trileptal as it is a possible cause of hyponatremia * Continue Hydrocodone 5/325mg x 6 hours PRN pain. This is a short term post op medication that she has been taking sparingly without side effects. * Continue Topamax 100mg QID * I advised the patient that the Trileptal will take time to work it's way out of the system. I would not recommend placing her on an alternative for now as there would likely be side effects and she is in agreement. If we were to discuss alternative medications (Lyrica, Cymbalta, Gabapentin) we would likely wean off of Topamax as well. * Nothing to offer interventionally. * Thank you for the consultation. Please contact with any questions or concerns. History of Present Illness Reason for Consultation: Hand pain Attending Physician: Fredy King MD History of Present Illness This is a 76 year old female that received a carpal tunnel release by Dr. Raymond on 10/13/2022. Since surgery she states that the numbness and tingling has switched to a deep aching in the right thumb. Prior to her surgery she has been on Trileptal 450 mg daily and Topamax 100 mg 4 times daily for this numbness and tingling sensation as well as spinal stenosis by [facility]. Prescribed tramadol to take if needed for pain postsurgery. Postsurgery she developed nausea, vomiting, decreased appetite, and sustained a fall so she was seen in the emergency department and found to be hyponatremic. Tramadol was switched to Hydrocodone which has been providing some pain relief. Trileptal is to be held today. Appetite has improved. No dizziness, lightheadedness, constipation, drowsiness. 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 HER [employer]IST propoxyphene AdvReac Intermediate GI UPSET, Verified 10/20/22 23:42 "DISORIENTED" amoxicillin AdvReac Mild VOMITING, Verified 10/20/22 23:42 GI UPSET baclofen AdvReac Mild disoriented Verified 10/20/22 23:42 nausea capsaicin [Diclopak] AdvReac Mild disoriented Verified 10/20/22 23:42 nausea clavulanic acid AdvReac Mild VOMITING, Verified 10/20/22 23:42 GI UPSET diclofenac [Diclopak] AdvReac Mild disoriented Verified 10/20/22 23:42 nausea Diclopak AdvReac Mild disoriented Verified 06/22/16 00:52 nausea codeine AdvReac Unknown pruritis Verified 10/20/22 23:44 Home Medications Medication Instructions Recorded Confirmed Type amlodipine 2.5 mg tablet 2.5 mg PO HS 10/20/22 10/20/22 History aspirin 81 mg tablet,delayed 81 mg PO DAILY 10/20/22 10/21/22 History release atorvastatin 80 mg tablet 80 mg PO DAILY 10/20/22 10/20/22 History cholecalciferol (vitamin D3) 25 25 mcg PO DAILY 10/20/22 10/21/22 History mcg (1,000 unit) tablet (Vitamin D3) ezetimibe 10 mg tablet 10 mg PO QAM 10/20/22 10/20/22 History furosemide 20 mg tablet 20 mg PO UD 10/20/22 10/20/22 History hydrocodone 5 mg-acetaminophen 325 1 tab PO Q6H PRN pain,mild or 10/20/22 10/20/22 History mg tablet severe icosapent ethyl 1 gram capsule 2 g PO BIDM 10/20/22 10/20/22 History levothyroxine 112 mcg tablet 112 mcg PO DAILYBB 10/20/22 10/20/22 History lisinopril 20 mg tablet 40 mg PO QAM 10/20/22 10/20/22 History magnesium oxide 400 mg PO QAM 10/20/22 10/21/22 History metformin 500 mg tablet 500 mg PO QDB 10/20/22 10/20/22 History metoprolol succinate 25 mg 25 mg PO DAILY 10/20/22 10/20/22 History tablet,extended release 24 hr omeprazole 40 mg capsule,delayed 40 mg PO DAILYBB 10/20/22 10/20/22 History release ondansetron 4 mg disintegrating 4 mg PO Q8 PRN Nausea 10/20/22 10/20/22 History tablet oxcarbazepine 150 mg tablet 150 mg PO AMHS 10/20/22 10/20/22 History oxcarbazepine 300 mg tablet 300 mg PO AMHS 10/20/22 10/20/22 History pentoxifylline 400 mg 400 mg PO AMHS 10/20/22 10/20/22 History tablet,extended release topiramate 100 mg tablet 100 mg PO QID 10/20/22 10/20/22 History tramadol 50 mg tablet 50 mg PO Q6 PRN pain,moderate 10/20/22 10/20/22 History acetaminophen 325 mg tablet 650 mg PO Q6 PRN pain,mild 10/21/22 10/21/22 History mupirocin 2 % topical ointment 1 applic topical TID PRN when 10/21/22 10/21/22 History flaring pyridoxine (vitamin B6) 250 mg 250 mg PO DAILY 10/21/22 10/21/22 History tablet (Vitamin B-6) valacyclovir 1 gram tablet 1,000 mg PO Q12H PRN Cold Sores 10/21/22 10/21/22 History Patient History Medical History Acute non-ST segment elevation myocardial infarction (11/22/10) Benign hypertension (11/22/10) Carotid artery stenosis (11/22/10) Cerebrovascular disease "old lacunar strokes on imaging" Coronary artery disease (11/22/10) Gastroesophageal reflux disease (11/22/10) History of adenomatous polyp of colon Hyperlipidemia (11/22/10) Hypothyroidism (11/22/10) Migraine Osteoarthritis Spinal stenosis in cervical region Surgical History Status post coronary artery stent placement Status post hysterectomy Social History Smoking Status: Former smoker Hx Alcohol Use: No Hx Substance Use: No Preferred Language: Divehi Communication Ability: Effective Cargo Broker Required: No Beliefs That Will Affect Care: None Current Living Situation: Alone Other Information That Helps Us Care for You: No Feels Safe at Home: Yes Safety Concerns: Feels Safe At This Time Assistive Devices: Cane, Denture - Upper, Denture - Lower, Scooter/Electric Scooter, Walker and Wheelchair Physical Exam Physical Exam: GENERAL: This is a 76 year old female in no acute distress. HEAD/FACE: Normocephalic and atraumatic. EYES: No drainage or conjunctival injection. ENT: Nose without bleeding or discharge. Oral mucosa moist. NECK: Full ROM without apparent pain. No swelling or masses noted. RESPIRATORY: Patient with unlabored breathing. No signs of respiratory distress. CHEST/AXILLA: Chest movement symmetrical. No deformities noted. ABDOMEN/GI: No distension BACK: Moves without difficulty SKIN: [place], warm and dry. No rash noted. MS/EXTREMITY: Limits use of the right thumb. Bandage along the wrist. NEURO: Alert and appears oriented. Speech is fluent. Cranial Nerves are grossly intact. PSYCH: Alert, pleasant, affect is calm
[2022-10-23] MEDS: [UNRECOGNIZED DRUG - REMARK] SCH ×3 (09:01→23:21)
[2022-10-23] MEDS: ATORVASTATIN 40 MG TAB PO SCH (09:02)
[2022-10-23] MEDS: EZETIMIBE 10 MG TABLET PO SCH (09:03)
[2022-10-23] MEDS: ASPIRIN 81 MG ECTAB PO SCH (09:03)
[2022-10-23] MEDS: METOPROLOL SUCC 25MG EXT REL TAB PO SCH (09:03)
[2022-10-23] MEDS: UREA (UREA-NA) 15 GM PACK PO SCH ×2 (09:03→19:49)
[2022-10-23] MEDS: DOCUSATE SODIUM 100 MG CAP PO SCH ×2 (09:03→19:48)
[2022-10-23] MEDS: PENTOXIFYLLINE 400MG EXT REL TAB PO SCH ×2 (09:04→19:48)
[2022-10-23] MEDS: TOPIRAMATE 100 MG TAB PO SCH ×4 (09:04→19:48)
[2022-10-23] MEDS: HEPARIN SOD 5,000 UNIT/0.5 ML VIAL SQ SCH ×2 (09:04→19:48)
[2022-10-23] MEDS: INSULIN ASPART PER UNIT CHARGE SC SCH ×4 (09:10→19:55)
--- NOTE | 2022-10-23 11:20 | Nephrology Progress Note ---
Date of Service October 23, 2022 Assessment & Plan (1) Hyponatremia: Plan: Patient with hyponatremia from syndrome of inappropriate ADH. Urine osmolality was 428 and urine sodium of 41. Admission sodium was 114 and has improved at appropriate rate. Target rate of rise is 6 in 24 hours. -Allow extra salt on the food. Patient encouraged to eat 3 regular meals with high-protein. -target sNa for am is 133 -Continue urea 15 g twice daily -No need for IV fluids. -Fluid restriction of 1.5 L daily. -Monitor bmp up to twice daily and maintain eukalemia -control pain as uncontrolled can increase ADH reliease (2) Fall from standing: Plan: Likely multifactorial including hyponatremia and chronic arthritis and back pain. We will hold Trileptal as it might be contributing to hyponatremia. Patient is nervous about worsening pain. Consider starting on tramadol as needed. continue supportive management with pain control and physical therapy. Admission and Anticipated Discharge Date Admission Date: October 21, 2022 Subjective no acute interval eventsclinically; feels her L leg looks worse since arrival to hospital; tells me she feels "off" today w/ malaise, ARZOLA, tolerating less po. no edema, no n/v. very much disliked low na diet; eats less overall in hospital than home. states malaise/ ARZOLA started post CTX procedur erecently. Review of Systems Review of Systems: All systems reviewed & are unremarkable except as noted in Subjective Physical Exam Constitutional: well developed and well nourished; no acute distress (sitting up in chair on RA) Eyes: EOM intact bilaterally ENMT: Ears: no external ear abnormality Nose: no external nose abnormality Mouth: + dry oral mucous membranes Neck: no nuchal rigidity Respiratory: normal respiratory effort Auscultation: + diminished lung sounds Cardiovascular: Rate/Rhythm: regular rate and regular rhythm Extremities: no edema Gastrointestinal (Abdomen): Inspection/Auscultation: normal bowel sounds Percussion/Palpation: abdomen soft; abdomen nontender Musculoskeletal: Extremities: strength 5/5 throughout Skin: no rashes, warm and dry R wrist w/ incision; L leg red Neurologic: araon, fluent speech, no tremor Results & Data Vital Signs (Past 12 Hours) Vital Signs Temp Pulse Pulse Resp BP BP Pulse Ox 10/23/22 07:00 66 10/23/22 09:00 10/23/22 07:26 36.6 C 73 18 138/64 95 10/23/22 04:19 36.6 C 70 18 118/68 96 O2 Del Method 10/23/22 07:00 10/23/22 09:00 Room Air 10/23/22 07:26 Room Air 10/23/22 04:19 Room Air Laboratory Results 10/22/22 07:52 10/23/22 06:26
[2022-10-23] MEDS: ONDANSETRON INJ 2 MG/ML 2 ML VIAL IV PRN (12:32)
--- NOTE | 2022-10-23 15:01 | Hospitalist Progress Note ---
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 She is being managed for the following: Acute on chronic hyponatremia Likely SIADH Patient presents with fall and found to be hyponatremic with Na of 114 at presentation. Urine osmolality 428 and urine sodium 41, likely SIADH Has history of hyponatremia [outpatient chart review with sodium level of 127 in September and October of 2021; it was low normal prior to that] complicated by poor appetite/tramadol/trileptal (dose was recently increased from 300 to 450 around the hand Sx time per pt). Of note, pt follows pain Mx and is on trileptal and topamax for about a year for neuropathic pain; trileptal dose was increased recently. Trileptal contributes to SIADH and topamax contributes to anorexia; will consult pain management for recs for alternatives -------> Pain Mx evaled: continue holding trileptal/cw home topamax/ cw hydrocodone 5/325 q6h prn Sodium level improving slowly, pt w/ poor appetite - minimal improvement. Nephrology on board, No IV fluids/fluid restriction of 1.5 L per day, on urea. Encourage diet/increase protein intake. Home diuretic on hold. Hold home tramadol, use Vicodin instead for severe pain. Hold home trileptal. Fall Generalized weakness Ambulatory dysfunction From advanced age, complicated with recent carpal tunnel surgery, hyponatremia and poor appetite. Patient uses walker PT/OT, fall precaution Other chronic medical conditions: Resume/continue with home meds as able CAD status post stent PVD, patient follows with [facility] vascular surgery history of CVA hypertension, c/w home meds as able. hyperlipidemia on statin Rx DM2 diet-controlled, well-controlled as of recent hemoglobin A1c of 5.9 last September 2022 hypothyroidism, euthyroid as of this admission's TSH chronic anemia, hemoglobin at baseline mood disorder, stable past tobacco abuse DVT prophylaxis: Hep SC Full code Patient son Mr. Miguel Bustillo, contact #[phone]. Admission and Anticipated Discharge Date Admission Date: October 21, 2022 Subjective Patient seen and examined at bedside as a follow-up of acute hyponatremia. Patient sitting up in chair, on room air, reports no new acute event overnight, reports poor appetite but slightly improving. Patient reports feeling better, sodium is coming up. Patient reports having poor appetite since last 7 to 10 days after the surgery. Her trileptal dose was also increased about the same time. MOving bowels ok. Physical Exam Physical Exam: GENERAL: Alert and oriented x3. NAD, on RA. Appear weak. HEENT: No pallor, no icterus. Pupils equal, round and reactive to light. Oral mucosa moist. NECK: No JVD, no neck masses. HEART: S1 and S2 heard. Regular rate and rhythm. No murmur, no gallop. RESPIRATORY SYSTEM: Normal AP diameter. No accessory muscle use. No wheezing, no crackles. ABDOMEN: Soft, bowel sounds present, nontender, no distention. CENTRAL NERVOUS SYSTEM: No facial droop. Speech is clear. Obeys simple commands. Moves extremities. EXTREMITIES: No edema, Chronic LLE erythema (h/o PVD)/doesn't appear infected. Rt hand w/ dressing c/d/i. Results & Data Results & Data Vital Signs (Past 12 Hours) Vital Signs Temp Pulse Pulse Resp BP BP Pulse Ox 10/23/22 11:14 36.4 C L 76 18 148/81 H 98 10/23/22 07:00 66 10/23/22 09:00 10/23/22 07:26 36.6 C 73 18 138/64 95 10/23/22 04:19 36.6 C 70 18 118/68 96 O2 Del Method 10/23/22 11:14 Room Air 10/23/22 07:00 10/23/22 09:00 Room Air 10/23/22 07:26 Room Air 10/23/22 04:19 Room Air
[2022-10-23] MEDS: amLODIPine BESYLATE 5 MG TAB PO SCH (19:47)
[2022-10-24] MEDS: HYDROCODONE/ACETAMOPHEN 5/325MG TAB PO PRN ×2 (03:00→22:48)
[2022-10-24] MEDS: LEVOTHYROXINE SODIUM 112 MCG TABLET PO SCH (05:28)
[2022-10-24] MEDS: PANTOprazole 40 MG TAB PO SCH (05:28)
[2022-10-24 07:29] LABS: Calcium 9.7 mg/dl (8.6-10.3); Creatinine Clr Calc Pharmacy 33.9 ml/min; Est GFR (African American) 48.5 ml/min; Est GFR (Non-African American) 41.9 ml/min; Magnesium 1.6 mg/dl (1.7-2.4); Phosphorus 3.4 mg/dl (2.5-4.9); Potassium 4.4 mmol/L (3.5-5.1)
[2022-10-24] MEDS: [UNRECOGNIZED DRUG - REMARK] SCH ×3 (08:22→23:09)
[2022-10-24] MEDS: INSULIN ASPART PER UNIT CHARGE SC SCH ×4 (08:22→21:24)
[2022-10-24] MEDS: ATORVASTATIN 40 MG TAB PO SCH (08:23)
[2022-10-24] MEDS: METOPROLOL SUCC 25MG EXT REL TAB PO SCH (08:24)
[2022-10-24] MEDS: DOCUSATE SODIUM 100 MG CAP PO SCH ×2 (08:24→20:29)
[2022-10-24] MEDS: ASPIRIN 81 MG ECTAB PO SCH (08:24)
[2022-10-24] MEDS: EZETIMIBE 10 MG TABLET PO SCH (08:24)
[2022-10-24] MEDS: HEPARIN SOD 5,000 UNIT/0.5 ML VIAL SQ SCH ×2 (08:25→20:30)
[2022-10-24] MEDS: UREA (UREA-NA) 15 GM PACK PO SCH ×2 (08:25→20:30)
[2022-10-24] MEDS: PENTOXIFYLLINE 400MG EXT REL TAB PO SCH ×2 (08:25→20:29)
[2022-10-24] MEDS: TOPIRAMATE 100 MG TAB PO SCH ×4 (08:25→20:29)
[2022-10-24] MEDS: MAGNESIUM SULFATE / D5W 1 GM/100 ML BAG IV SCH ×2 (10:09→11:41)
--- NOTE | 2022-10-24 11:31 | Nephrology Progress Note ---
Date of Service October 24, 2022 Assessment & Plan (1) Hyponatremia: Plan: Patient with hyponatremia from syndrome of inappropriate ADH. Urine osmolality was 428 and urine sodium of 41. Admission sodium was 114 and has improved at appropriate rate. Target rate of rise is 6 in 24 hours. -Allow extra salt on the food. Patient encouraged to eat 3 regular meals with high-protein. -target sNa for am is 135 -continue urea 15 g twice daily -No need for IV fluids. -started lasix 10 mg IV bid 17, first dose now -started K 20 mEq dialy -Fluid restriction of 1.5 L daily. -Monitor bmp up to twice daily and maintain eukalemia -control pain as uncontrolled can increase ADH reliease (2) Fall from standing: Plan: Likely multifactorial including hyponatremia and chronic arthritis and back pain. We will hold Trileptal as it might be contributing to hyponatremia. Patient is nervous about worsening pain. Consider starting on tramadol as needed. continue supportive management with pain control and physical therapy. Admission and Anticipated Discharge Date Admission Date: October 21, 2022 Subjective no c/o today >eating well; no sob; leg feels improved; ocnsidering rehab; no n/v Review of Systems Review of Systems: All systems reviewed & are unremarkable except as noted in Subjective Physical Exam Constitutional: well developed and well nourished; no acute distress (sitting up in chair on RA) Eyes: EOM intact bilaterally ENMT: Ears: no external ear abnormality Nose: no external nose abnormality Mouth: + dry oral mucous membranes Neck: no nuchal rigidity Respiratory: normal respiratory effort Auscultation: + diminished lung sounds Cardiovascular: Rate/Rhythm: regular rate and regular rhythm Extremities: no edema Gastrointestinal (Abdomen): Inspection/Auscultation: normal bowel sounds Percussion/Palpation: abdomen soft; abdomen nontender Musculoskeletal: Extremities: strength 5/5 throughout Skin: no rashes, warm and dry Neurologic: aaron, fluen tspeech, no tremor Results & Data Vital Signs (Past 12 Hours) Vital Signs Temp Pulse Pulse Resp BP Pulse Ox O2 Del Method 10/24/22 10:54 36.5 C 75 18 124/73 97 Room Air 10/24/22 10:42 Room Air 10/24/22 07:00 67 10/24/22 07:20 36.5 C 71 18 117/76 97 Room Air 10/24/22 04:01 36.7 C 70 18 124/68 97 Room Air 10/24/22 01:00 75 Laboratory Results 10/22/22 07:52 10/24/22 06:19
[2022-10-24] MEDS: FUROSEMIDE INJ 20 MG/2 ML VIAL IV SCH ×2 (12:32→17:11)
[2022-10-24] MEDS: POTASSIUM CHLORIDE CRTAB 20 MEQ TABCR PO SCH (12:32)
--- NOTE | 2022-10-24 16:38 | Hospitalist Progress Note ---
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 She is being managed for the following: Acute on chronic hyponatremia Likely SIADH Patient presents with fall and found to be hyponatremic with Na of 114 at presentation. Urine osmolality 428 and urine sodium 41, likely SIADH Has history of hyponatremia [outpatient chart review with sodium level of 127 in September and October of 2021; it was low normal prior to that] complicated by poor appetite/tramadol/trileptal (dose was recently increased from 300 to 450 around the hand Sx time per pt). Of note, pt follows pain Mx and is on trileptal and topamax for about a year for neuropathic pain; trileptal dose was increased recently. Trileptal contributes to SIADH and topamax contributes to anorexia; will consult pain management for recs for alternatives -------> Pain Mx evaled: continue holding trileptal/cw home topamax/ cw hydrocodone 5/325 q6h prn Sodium level improving, pt reports somewhat improving appetite. Nephrology on board, No IV fluids/fluid restriction of 1.5 L per day, on urea and lasix. Encourage diet/increase protein intake. Home lisinopril on hold. Hold home tramadol, use Vicodin instead for severe pain. DC home trileptal. Fall Generalized weakness Ambulatory dysfunction From advanced age, complicated with recent carpal tunnel surgery, hyponatremia and poor appetite. Patient uses walker PT/OT, fall precaution Other chronic medical conditions: Resume/continue with home meds as able CAD status post stent PVD, patient follows with [facility] surgery history of CVA hypertension, c/w home meds as able. hyperlipidemia on statin Rx DM2 diet-controlled, well-controlled as of recent hemoglobin A1c of 5.9 last September 2022 hypothyroidism, euthyroid as of this admission's TSH chronic anemia, hemoglobin at baseline mood disorder, stable past tobacco abuse DVT prophylaxis: Hep SC Full code Dispo: pending nephro clearance, to rehab. Patient son Mr. Miguel Bustillo, contact #[phone]. Admission and Anticipated Discharge Date Admission Date: October 21, 2022 Subjective Patient seen and examined at bedside as a follow-up of acute hyponatremia. Patient lying in bed, on room air, reports no new acute event overnight, reports improving appetite. Na is also improving. Patient reports feeling better, pt's carpal tunnel suture removal is scheduled for maicol w/ Dr. Grant ; likely pt won't be able to make it, likely will need removal in hospital after TT update to the Dr. Patient reports having poor appetite since last 7 to 10 days after the surgery which is now improving. Her trileptal dose was also increased about the same time. Moving bowels ok. Physical Exam Physical Exam: GENERAL: Alert and oriented x3. NAD, on RA. Appear weak. HEENT: No pallor, no icterus. Pupils equal, round and reactive to light. Oral mucosa moist. NECK: No JVD, no neck masses. HEART: S1 and S2 heard. Regular rate and rhythm. No murmur, no gallop. RESPIRATORY SYSTEM: Normal AP diameter. No accessory muscle use. No wheezing, no crackles. ABDOMEN: Soft, bowel sounds present, nontender, no distention. CENTRAL NERVOUS SYSTEM: No facial droop. Speech is clear. Obeys simple commands. Moves extremities. EXTREMITIES: No edema, Chronic LLE erythema (h/o PVD)/doesn't appear infected. Rt hand w/ dressing c/d/i. Results & Data Results & Data Vital Signs (Past 12 Hours) Vital Signs Temp Pulse Pulse Resp BP Pulse Ox O2 Del Method 10/24/22 10:54 36.5 C 75 18 124/73 97 Room Air 10/24/22 10:42 Room Air 10/24/22 07:00 67 10/24/22 07:20 36.5 C 71 18 117/76 97 Room Air
[2022-10-24] MEDS: amLODIPine BESYLATE 5 MG TAB PO SCH (20:29)
[2022-10-25] MEDS: PANTOprazole 40 MG TAB PO SCH (05:43)
[2022-10-25] MEDS: LEVOTHYROXINE SODIUM 112 MCG TABLET PO SCH (05:43)
[2022-10-25 07:03] LABS: BUN Creatinine Ratio 50.8 (10-20); Calcium 9.8 mg/dl (8.6-10.3); Creatinine Clr Calc Pharmacy 32.6 ml/min; Est GFR (African American) 47.3 ml/min; Est GFR (Non-African American) 40.8 ml/min; Magnesium 1.9 mg/dl (1.7-2.4); Potassium 4.1 mmol/L (3.5-5.1)
[2022-10-25] MEDS: [UNRECOGNIZED DRUG - REMARK] SCH ×3 (09:45→23:23)
[2022-10-25] MEDS: UREA (UREA-NA) 15 GM PACK PO SCH ×2 (09:49→20:01)
[2022-10-25] MEDS: METOPROLOL SUCC 25MG EXT REL TAB PO SCH (09:49)
[2022-10-25] MEDS: ATORVASTATIN 40 MG TAB PO SCH (09:49)
[2022-10-25] MEDS: DOCUSATE SODIUM 100 MG CAP PO SCH ×2 (09:49→20:03)
[2022-10-25] MEDS: PENTOXIFYLLINE 400MG EXT REL TAB PO SCH ×2 (09:49→20:03)
[2022-10-25] MEDS: POTASSIUM CHLORIDE CRTAB 20 MEQ TABCR PO SCH (09:49)
[2022-10-25] MEDS: EZETIMIBE 10 MG TABLET PO SCH (09:49)
[2022-10-25] MEDS: ASPIRIN 81 MG ECTAB PO SCH (09:49)
[2022-10-25] MEDS: TOPIRAMATE 100 MG TAB PO SCH ×4 (09:49→20:03)
[2022-10-25] MEDS: HEPARIN SOD 5,000 UNIT/0.5 ML VIAL SQ SCH ×2 (10:03→20:07)
[2022-10-25] MEDS: FUROSEMIDE INJ 20 MG/2 ML VIAL IV SCH ×2 (10:04→17:35)
[2022-10-25] MEDS: INSULIN ASPART PER UNIT CHARGE SC SCH ×4 (10:09→20:46)
--- NOTE | 2022-10-25 13:40 | Hospitalist Progress Note ---
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 She is being managed for the following: Acute on chronic hyponatremia Likely SIADH Patient presents with fall and found to be hyponatremic with Na of 114 at presentation. Urine osmolality 428 and urine sodium 41, likely SIADH Has history of hyponatremia [outpatient chart review with sodium level of 127 in September and October of 2021; it was low normal prior to that] complicated by poor appetite/tramadol/trileptal (dose was recently increased from 300 to 450 around the hand Sx time per pt). Of note, pt follows pain Mx and is on trileptal and topamax for about a year for neuropathic pain; Trileptal dose was increased recently. Trileptal contributes to SIADH and topamax contributes to anorexia; will consult pain management for recs for alternatives -------> Pain Mx evaled: continue holding trileptal/cw home topamax/ cw hydrocodone 5/325 q6h prn Sodium level improving, pt reports somewhat improving appetite. Nephrology on board, No IV fluids/fluid restriction of 1.5 L per day, on urea and lasix. Encourage diet/increase protein intake. Home lisinopril on hold. Hold home tramadol, use Vicodin instead for severe pain. DC home trileptal. Appreciate nephrology input and recommendation Has been on urea, Lasix 10 mg IV twice daily and potassium supplement with fluid restriction Sodium level has been improving which is 132 as of 10/25/2022 We will continue current management and monitor PRP Carpal tunnel syndrome Status post surgery about 2 weeks ago Discussed with the surgeon and the sutures can be taken out Water to remove sutures was placed and discussed with the patient Fall Generalized weakness Ambulatory dysfunction From advanced age, complicated with recent carpal tunnel surgery, hyponatremia and poor appetite. Patient uses walker PT/OT, fall precaution-await recommendation May need to go to rehab for short-term Other chronic medical conditions: Resume/continue with home meds as able CAD status post stent PVD, patient follows with [facility] vascular surgery history of CVA hypertension, c/w home meds as able. hyperlipidemia on statin Rx DM2 diet-controlled, well-controlled as of recent hemoglobin A1c of 5.9 last September 2022 hypothyroidism, euthyroid as of this admission's TSH chronic anemia, hemoglobin at baseline mood disorder, stable past tobacco abuse DVT prophylaxis: Hep SC Full code Dispo: pending nephro clearance, to rehab. Patient son Mr. Miguel Bustillo, contact #[phone]. Admission and Anticipated Discharge Date Admission Date: October 21, 2022 Subjective 10/25/2022 The patient was seen and examined in medical telemetry unit She has been feeling much better and is still has minimal pain involving the carpal tunnel surgery site She has been getting physical therapy and getting stronger Denies any other significant symptoms Review of Systems Review of Systems: All systems reviewed and are unremarkable except as noted below Physical Exam Physical Exam: Sitting on a chair without any acute distress Constitutional: well developed, well nourished, + ill appearing and + obese Eyes: PERRL, conjunctivae normal, anicteric sclerae ENMT: external ear and nose normal, oropharynx normal Neck: trachea midline, no thyromegaly Respiratory: no respiratory distress Auscultation: lungs clear to auscultation bilaterally Cardiovascular: Rate/Rhythm: regular rate and regular rhythm; not tachycardic Heart Sounds: normal S1 and normal S2; no murmur Extremities: + edema (Trace edema bilaterally) Gastrointestinal (Abdomen): Inspection/Auscultation: normal bowel sounds; abdomen not distended Percussion/Palpation: + abdomen tender Musculoskeletal: No acute arthritis involving any joint. Recent right carpal tunnel surgery with sutures and Band-Aids in situ Neurologic: Alert, awake and oriented x3. No focal sensory or motor deficit appreciated Lymphatic: no cervical or axillary lymphadenopathy Results & Data Results & Data Vital Signs (Past 12 Hours) Vital Signs Temp Pulse Pulse Resp BP Pulse Ox O2 Del Method 10/25/22 11:00 36.4 C L 99 H 18 149/69 H 99 Room Air 10/25/22 07:40 71 10/25/22 07:00 37 C 74 18 131/72 96 Room Air 10/25/22 03:32 36.6 C 76 18 131/73 96 Room Air Laboratory Results [facility] 10/25/22 05:39 Sodium 132 L Potassium 4.1 Chloride 101 Carbon Dioxide 23 BUN 64 H Creatinine 1.26 H Glucose 75 Calcium 9.8 Medications Administered Current Inpatient Medications Acetaminophen (Acetaminophen 325 Mg Tab) 650 mg PO Q4H PRN PRN Reason: Pain or Fever Stop: 11/20/22 01:29 Hydrocodone Bitart/Acetaminophen (Hydrocodone/Acetamophen 5/325mg Tab) 1 tab PO Q6H PRN PRN Reason: pain,mild or severe Stop: 11/04/22 01:29 Last Admin: 10/24/22 22:48 Dose: 1 tab Amlodipine Besylate (Amlodipine Besylate 5 Mg Tab) 2.5 mg PO HS DAJA Stop: 11/20/22 20:59 Last Admin: 10/24/22 20:29 Dose: 2.5 mg Aspirin (Aspirin 81 Mg Ectab) 81 mg PO DAILY DAJA Stop: 11/20/22 08:59 Last Admin: 10/25/22 09:49 Dose: 81 mg Atorvastatin Calcium (Atorvastatin 40 Mg Tab) 80 mg PO DAILY DAJA Stop: 11/20/22 08:59 Last Admin: 10/25/22 09:49 Dose: 80 mg Dextrose (Dextrose 50% 50 Ml Syringe) 25 - 50 ml IV UD PRN; Protocol PRN Reason: Hypoglycemia Protocol Stop: 11/20/22 01:29 Docusate Sodium (Docusate Sodium 100 Mg Cap) 100 mg PO BID DAJA Stop: 11/20/22 10:59 Last Admin: 10/25/22 09:49 Dose: 100 mg Ezetimibe (Ezetimibe 10 Mg Tablet) 10 mg PO QAM DAJA Stop: 11/20/22 08:59 Last Admin: 10/25/22 09:49 Dose: 10 mg Furosemide (Furosemide Inj 20 Mg/2 Ml Vial) 10 mg IV [id number] DAJA Stop: 11/23/22 11:29 Last Admin: 10/25/22 10:04 Dose: 10 mg Glucagon (Glucagon For Inj 1 Mg Vial) 1 mg SQ UD PRN; Protocol PRN Reason: Hypoglycemia Protocol Stop: 11/20/22 01:29 Glucose (Glucose 10 Tab/Tube) 4 - 8 tab PO UD PRN; Protocol PRN Reason: Hypoglycemia Treatment Stop: 11/20/22 01:29 Glucose (Glucose 40% Gel 15 Gm Tube) 15 - 30 gm PO UD PRN; Protocol PRN Reason: Hypoglycemia Protocol Stop: 11/20/22 01:29 Heparin Sodium (Porcine) (Heparin Sod 5,000 Unit/0.5 Ml Vial) 5,000 units SQ Q12 DAJA Stop: 11/21/22 20:59 Last Admin: 10/25/22 10:03 Dose: Not Given Insulin Aspart (Insulin Aspart Per Unit Charge) 0 units SC ACHS [facility] Stop: 11/20/22 01:29 Last Admin: 10/25/22 12:09 Dose: Not Given Levothyroxine Sodium (Levothyroxine Sodium 112 Mcg Tablet) 112 mcg PO DAILYBB [facility] Stop: 11/20/22 06:29 Last Admin: 10/25/22 05:43 Dose: 112 mcg Lisinopril (Lisinopril 40 Mg Tab) 40 mg PO QAM [facility] Stop: 11/20/22 08:59 Last Admin: 10/21/22 09:46 Dose: 40 mg Metoprolol Succinate (Metoprolol Succ 25mg Ext Rel Tab) 25 mg PO DAILY [facility] Stop: 11/20/22 08:59 Last Admin: 10/25/22 09:49 Dose: 25 mg Miscellaneous (Order Awaiting Action: Icosapent Ethyl 1 Gram Capsule) 1 each N/A QS [facility] Stop: 11/20/22 07:59 Last Admin: 10/25/22 09:45 Dose: Not Given Miscellaneous (Carbohydrates For Hypoglycemia ) 15 - 30 gm PO UD PRN PRN Reason: Hypoglycemia Protocol Stop: 11/20/22 01:29 Ondansetron HCl (Ondansetron Inj 2 Mg/Ml 2 Ml Vial) 4 mg IV Q4H PRN PRN Reason: Nausea Stop: 11/20/22 11:13 Last Admin: 10/23/22 12:32 Dose: 4 mg Pantoprazole Sodium (Pantoprazole 40 Mg Tab) 40 mg PO DAILYBB [facility] Stop: 11/20/22 06:29 Last Admin: 10/25/22 05:43 Dose: 40 mg Pentoxifylline (Pentoxifylline 400mg Ext Rel Tab) 400 mg PO AMHS DAJA Stop: 11/20/22 08:59 Last Admin: 10/25/22 09:49 Dose: 400 mg Potassium Chloride (Potassium Chloride Crtab 20 Meq Tabcr) 20 meq PO QAM [facility]JA Stop: 11/23/22 11:29 Last Admin: 10/25/22 09:49 Dose: 20 meq Topiramate (Topiramate 100 Mg Tab) 100 mg PO QID DAJA Stop: 11/20/22 08:59 Last Admin: 10/25/22 13:32 Dose: 100 mg Urea (Urea (Urea-Na) 15 Gm Pack) 15 gm PO BID DAJA Stop: 11/21/22 03:24 Last Admin: 10/25/22 09:49 Dose: 15 gm
--- NOTE | 2022-10-25 14:35 | Nephrology Progress Note ---
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 Urine osmolality was 428 and urine sodium of 41. Admission sodium was 114 and has improved at appropriate rate. Target rate of rise is 6 in 24 hours. -target sNa for am is 135 -continue urea 15 g twice daily -No need for IV fluids. -started lasix 10 mg IV bid 17, first dose now -started K 20 mEq dialy -Fluid restriction of 1.5 L daily. -Monitor bmp up to twice daily and maintain eukalemia -control pain as uncontrolled can increase ADH reliease Nephrology d/c recommendations (tentative) -Allow extra salt on the food. Patient encouraged to eat 3 regular meals with high-protein. -continue urea, K current doses at d/c -d/c w/ FR 1.5L daily -likely d/c on torsemide -bmp w/in 3-5 days of d/c to be ordered by neph RN -hospital d/c appt w/ me 2-4 wks after d/c Admission and Anticipated Discharge Date Admission Date: October 21, 2022 [address] halls today w/ walker; bored; feeling better but L leg still quite sore. no sob, no n/v, no voiding c/o Review of Systems Review of Systems: All systems reviewed & are unremarkable except as noted in Subjective Physical Exam Constitutional: well developed and well nourished; no acute distress (sitting up in chair on RA) Eyes: EOM intact bilaterally ENMT: Ears: no external ear abnormality Nose: no external nose abnormality Mouth: + dry oral mucous membranes Neck: no nuchal rigidity Respiratory: normal respiratory effort Auscultation: lungs clear to auscultation bilaterally Cardiovascular: Rate/Rhythm: regular rate and regular rhythm Extremities: + edema (trace BL dependent) Gastrointestinal (Abdomen): Inspection/Auscultation: normal bowel sounds Percussion/Palpation: abdomen soft; abdomen nontender Musculoskeletal: Extremities: strength 5/5 throughout Skin: no rashes, warm and dry surgical incision palm of R hand Neurologic: aaron, fluent speech, no tremor Results & Data Vital Signs (Past 12 Hours) Vital Signs Temp Pulse Pulse Resp BP Pulse Ox O2 Del Method 10/25/22 11:00 36.4 C L 99 H 18 149/69 H 99 Room Air 10/25/22 07:40 71 10/25/22 07:00 37 C 74 18 131/72 96 Room Air 10/25/22 03:32 36.6 C 76 18 131/73 96 Room Air Laboratory Results 10/22/22 07:52 10/25/22 05:39
[2022-10-25] MEDS: ACETAMINOPHEN 325 MG TAB PO PRN (20:02)
[2022-10-25] MEDS: amLODIPine BESYLATE 5 MG TAB PO SCH (20:03)
[2022-10-25] MEDS: HYDROCODONE/ACETAMOPHEN 5/325MG TAB PO PRN (21:33)
[2022-10-26] MEDS: PANTOprazole 40 MG TAB PO SCH (06:14)
[2022-10-26] MEDS: LEVOTHYROXINE SODIUM 112 MCG TABLET PO SCH (06:14)
[2022-10-26 06:40] LABS: Basophils # (auto) 0.08 K/uL (0-0.2); Basophils % (auto) 1.6 %; Eosinophils # (auto) 0.05 K/uL (0-0.50); Hemoglobin 10.7 g/dl (12.0-16.0); Immature Granulocytes # (auto) 0.02 K/uL (0.01-0.20); Immature Granulocytes % (auto) 0.4 %; Lymphocytes # (auto) 2.19 K/uL (1.2-3.4); Lymphocytes % (auto) 43.6 %; Mean Corpuscular Hgb Conc 34.5 g/dL (32.0-36.0); Mean Corpuscular Volume 89.9 fL (80.0-100.0); Mean Platelet Volume 10.4 fL (9.4-12.4); Monocytes # (auto) 0.57 K/uL (0.11-0.59); Monocytes % (auto) 11.4 %; Neutrophils # (auto) 2.11 K/uL (1.40-6.50); Platelet Count 281 K/uL (130-400); RDW Coefficient of Variation 12.8 % (11.5-14.5); RDW Standard Deviation 42.2 fL (36.4-46.3); Red Blood Count 3.45 M/uL (4.20-5.40); White Blood Count 5.02 K/ul (4.8-10.8)
[2022-10-26 06:56] LABS: Calcium 10.1 mg/dl (8.6-10.3); Creatinine Clr Calc Pharmacy 27.7 ml/min; Est GFR (African American) 38.9 ml/min; Est GFR (Non-African American) 33.6 ml/min; Magnesium 1.8 mg/dl (1.7-2.4); Potassium 4.2 mmol/L (3.5-5.1)
[2022-10-26] MEDS: INSULIN ASPART PER UNIT CHARGE SC SCH ×4 (08:08→21:23)
[2022-10-26] MEDS: EZETIMIBE 10 MG TABLET PO SCH (08:10)
[2022-10-26] MEDS: [UNRECOGNIZED DRUG - REMARK] SCH (08:10)
[2022-10-26] MEDS: FUROSEMIDE INJ 20 MG/2 ML VIAL IV SCH (08:12)
[2022-10-26] MEDS: METOPROLOL SUCC 25MG EXT REL TAB PO SCH (08:12)
[2022-10-26] MEDS: POTASSIUM CHLORIDE CRTAB 20 MEQ TABCR PO SCH (08:12)
[2022-10-26] MEDS: UREA (UREA-NA) 15 GM PACK PO SCH ×2 (08:13→21:19)
[2022-10-26] MEDS: ATORVASTATIN 40 MG TAB PO SCH (08:13)
[2022-10-26] MEDS: ASPIRIN 81 MG ECTAB PO SCH (08:13)
[2022-10-26] MEDS: DOCUSATE SODIUM 100 MG CAP PO SCH ×2 (08:14→21:19)
[2022-10-26] MEDS: TOPIRAMATE 100 MG TAB PO SCH ×4 (08:14→21:18)
[2022-10-26] MEDS: PENTOXIFYLLINE 400MG EXT REL TAB PO SCH ×2 (08:14→21:18)
[2022-10-26] MEDS: HEPARIN SOD 5,000 UNIT/0.5 ML VIAL SQ SCH ×2 (08:15→21:19)
--- NOTE | 2022-10-26 11:12 | Nephrology Progress Note ---
Date of Service October 26, 2022 Assessment & Plan (1) Hyponatremia: Plan: Patient with hyponatremia from syndrome of inappropriate ADH. Urine osmolality was 428 and urine sodium of 41. Admission sodium was 114 and has improved at appropriate rate. Target rate of rise is 6 in 24 hours. -target sNa for am is 139 -continue urea 15 g twice daily -started lasix 10 mg IV bid 17 yesterday > will change to po and lower dose to once daily as below -lower K to 10 mEq daily -Fluid restriction of 1.5 L daily. -Monitor bmp up to twice daily and maintain eukalemia Will sign off Nephrology d/c recommendations -Allow extra salt on the food. Patient encouraged to eat 3 regular meals with high-protein. -continue urea 15 gm bid, K 10 mEq daily at d/c -d/c w/ FR 1.5L daily -d/c on lasix 20 mg daily -control pain as uncontrolled can increase ADH release -bmp w/in 3-5 days of d/c to be ordered by neph RN -hospital d/c appt w/ me 2-4 wks after d/c Admission and Anticipated Discharge Date Admission Date: October 21, 2022 Subjective ambulating; fee;ls well Review of Systems Review of Systems: All systems reviewed & are unremarkable except as noted in Subjective Physical Exam Constitutional: well developed and well nourished; no acute distress (sitting up in chair on RA) Eyes: EOM intact bilaterally ENMT: Ears: no external ear abnormality Nose: no external nose abnormality Mouth: + dry oral mucous membranes Neck: no nuchal rigidity Respiratory: normal respiratory effort Auscultation: lungs clear to auscultation bilaterally and + diminished lung sounds Cardiovascular: Rate/Rhythm: regular rate and regular rhythm Extremities: + edema (trace BL dependent) Gastrointestinal (Abdomen): Inspection/Auscultation: normal bowel sounds Percussion/Palpation: abdomen soft; abdomen nontender Musculoskeletal: Extremities: strength 5/5 throughout Skin: no rashes, warm and dry Results & Data Vital Signs (Past 12 Hours) Vital Signs Temp Pulse Pulse Resp BP BP Pulse Ox 10/26/22 07:47 70 10/26/22 07:26 36.5 C 76 18 112/60 95 10/26/22 03:49 36.5 C 75 16 113/68 96 O2 Del Method 10/26/22 07:47 10/26/22 07:26 Room Air 10/26/22 03:49 Room Air Laboratory Results 10/26/22 05:49 10/26/22 05:49
[2022-10-26] MEDS ORDERED: SOD PHOSPHATE/SOD BIPHOSPHATE ENEMA 132 ML BTL PR STA (14:10)
--- NOTE | 2022-10-26 15:35 | Hospitalist Progress Note ---
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 She is being managed for the following: Acute on chronic hyponatremia Likely SIADH Patient presents with fall and found to be hyponatremic with Na of 114 at presentation. Urine osmolality 428 and urine sodium 41, likely SIADH Has history of hyponatremia [outpatient chart review with sodium level of 127 in September and October of 2021; it was low normal prior to that] complicated by poor appetite/tramadol/trileptal (dose was recently increased from 300 to 450 around the hand Sx time per pt). Of note, pt follows pain Mx and is on trileptal and topamax for about a year for neuropathic pain; Trileptal dose was increased recently. Trileptal contributes to SIADH and topamax contributes to anorexia; will consult pain management for recs for alternatives -------> Pain Mx evaled: continue holding trileptal/cw home topamax/ cw hydrocodone 5/325 q6h prn Sodium level improving, pt reports somewhat improving appetite. Nephrology on board, No IV fluids/fluid restriction of 1.5 L per day, on urea and lasix. Encourage diet/increase protein intake. Home lisinopril on hold. Hold home tramadol, use Vicodin instead for severe pain. DC home trileptal. Appreciate nephrology input and recommendation Has been on urea, Lasix 10 mg IV twice daily and potassium supplement with fluid restriction Sodium level has been improving which is 132 as of 10/25/2022 We will continue current management and monitor PRP Her sodium level has gone up to 133 with slight increase in BUN and creatinine at 74/1.48 Medications have been adjusted to control hyponatremia Carpal tunnel syndrome Status post surgery about 2 weeks ago Discussed with the surgeon and the sutures can be taken out Water to remove sutures was placed and discussed with the patient Status post removal of the sutures Fall Generalized weakness Ambulatory dysfunction From advanced age, complicated with recent carpal tunnel surgery, hyponatremia and poor appetite. Patient uses walker PT/OT, fall precaution-await recommendation May need to go to rehab for short-term Awaiting placement has been getting physical therapy Other chronic medical conditions: Resume/continue with home meds as able CAD status post stent PVD, patient follows with [facility] [place] vascular surgery history of CVA hypertension, c/w home meds as able. hyperlipidemia on statin Rx DM2 diet-controlled, well-controlled as of recent hemoglobin A1c of 5.9 last September 2022 hypothyroidism, euthyroid as of this admission's TSH chronic anemia, hemoglobin at baseline mood disorder, stable past tobacco abuse DVT prophylaxis: Hep SC Full code Dispo: pending nephro clearance, to rehab. Patient son Mr. Miguel Bustillo, contact #[phone]. Admission and Anticipated Discharge Date Admission Date: October 21, 2022 Subjective 10/25/2022 The patient was seen and examined in medical telemetry unit She has been feeling much better and is still has minimal pain involving the carpal tunnel surgery site She has been getting physical therapy and getting stronger Denies any other significant symptoms 10/26/2022 The patient was seen and examined in medical telemetry unit She has been feeling much better and denies any significant symptoms She has been getting physical therapy and awaiting placement Sutures from CTS surgery have been removed Review of Systems Review of Systems: All systems reviewed and are unremarkable except as noted below Physical Exam Physical Exam: Sitting on a chair without any acute distress Constitutional: well developed, well nourished, + ill appearing and + obese Eyes: PERRL, conjunctivae normal, anicteric sclerae ENMT: external ear and nose normal, oropharynx normal Neck: trachea midline, no thyromegaly Respiratory: no respiratory distress Auscultation: lungs clear to auscultation bilaterally Cardiovascular: Rate/Rhythm: regular rate and regular rhythm; not tachycardic Heart Sounds: normal S1 and normal S2; no murmur Extremities: + edema (Trace edema bilaterally) Gastrointestinal (Abdomen): Inspection/Auscultation: normal bowel sounds; abdomen not distended Percussion/Palpation: + abdomen tender Musculoskeletal: No acute arthritis in any joint Neurologic: normal touch/pain/proprioception and moves all extremities; no focal motor deficits Generally weak Lymphatic: no cervical or axillary lymphadenopathy Results & Data Results & Data Vital Signs (Past 12 Hours) Vital Signs Temp Pulse Pulse Resp BP BP Pulse Ox 10/26/22 15:29 108 H 10/26/22 14:58 36.7 C 67 16 127/77 98 10/26/22 11:47 36.4 C L 82 18 146/62 H 98 10/26/22 07:47 70 10/26/22 07:26 36.5 C 76 18 112/60 95 10/26/22 03:49 36.5 C 75 16 113/68 96 O2 Del Method 10/26/22 15:29 10/26/22 14:58 Room Air 10/26/22 11:47 Room Air 10/26/22 07:47 10/26/22 07:26 Room Air 10/26/22 03:49 Room Air Laboratory Results Short CBC 10/26/22 Range/Units 05:49 WBC 5.02 (4.8-10.8) K/ul Hgb 10.7 L (12.0-16.0) g/dl Hct 31.0 L (37.0-47.0) % Plt Count 281 (130-400) K/uL BMP 10/26/22 05:49 Sodium 133 L Potassium 4.2 Chloride 102 Carbon Dioxide 24 BUN 74 H Creatinine 1.48 H Glucose 82 Calcium 10.1 Medications Administered Current Inpatient Medications Acetaminophen (Acetaminophen 325 Mg Tab) 650 mg PO Q4H PRN PRN Reason: Pain or Fever Stop: 11/20/22 01:29 Last Admin: 10/25/22 20:02 Dose: 650 mg Hydrocodone Bitart/Acetaminophen (Hydrocodone/Acetamophen 5/325mg Tab) 1 tab PO Q6H PRN PRN Reason: pain,mild or severe Stop: 11/04/22 01:29 Last Admin: 10/25/22 21:33 Dose: 1 tab Amlodipine Besylate (Amlodipine Besylate 5 Mg Tab) 2.5 mg PO HS DAJA Stop: 11/20/22 20:59 Last Admin: 10/25/22 20:03 Dose: 2.5 mg Aspirin (Aspirin 81 Mg Ectab) 81 mg PO DAILY [facility] Stop: 11/20/22 08:59 Last Admin: 10/26/22 08:13 Dose: 81 mg Atorvastatin Calcium (Atorvastatin 40 Mg Tab) 80 mg PO DAILY [facility] Stop: 11/20/22 08:59 Last Admin: 10/26/22 08:13 Dose: 80 mg Dextrose (Dextrose 50% 50 Ml Syringe) 25 - 50 ml IV UD PRN; Protocol PRN Reason: Hypoglycemia Protocol Stop: 11/20/22 01:29 Docusate Sodium (Docusate Sodium 100 Mg Cap) 100 mg PO BID [facility] Stop: 11/20/22 10:59 Last Admin: 10/26/22 08:14 Dose: 100 mg Ezetimibe (Ezetimibe 10 Mg Tablet) 10 mg PO QAM [facility] Stop: 11/20/22 08:59 Last Admin: 10/26/22 08:10 Dose: 10 mg Furosemide (Furosemide 20 Mg Tab) 20 mg PO QAM [facility] Stop: 11/26/22 08:59 Glucagon (Glucagon For Inj 1 Mg Vial) 1 mg SQ UD PRN; Protocol PRN Reason: Hypoglycemia Protocol Stop: 11/20/22 01:29 Glucose (Glucose 10 Tab/Tube) 4 - 8 tab PO UD PRN; Protocol PRN Reason: Hypoglycemia Treatment Stop: 11/20/22 01:29 Glucose (Glucose 40% Gel 15 Gm Tube) 15 - 30 gm PO UD PRN; Protocol PRN Reason: Hypoglycemia Protocol Stop: 11/20/22 01:29 Heparin Sodium (Porcine) (Heparin Sod 5,000 Unit/0.5 Ml Vial) 5,000 units SQ Q12 [facility] Stop: 11/21/22 20:59 Last Admin: 10/26/22 08:15 Dose: 5,000 units Insulin Aspart (Insulin Aspart Per Unit Charge) 0 units SC ACHS [facility] Stop: 11/20/22 01:29 Last Admin: 10/26/22 12:06 Dose: 4 units Levothyroxine Sodium (Levothyroxine Sodium 112 Mcg Tablet) 112 mcg PO DAILYBB [facility] Stop: 11/20/22 06:29 Last Admin: 10/26/22 06:14 Dose: 112 mcg Lisinopril (Lisinopril 40 Mg Tab) 40 mg PO QAM [facility] Stop: 11/20/22 08:59 Last Admin: 10/21/22 09:46 Dose: 40 mg Metoprolol Succinate (Metoprolol Succ 25mg Ext Rel Tab) 25 mg PO DAILY [facility] Stop: 11/20/22 08:59 Last Admin: 10/26/22 08:12 Dose: 25 mg Miscellaneous (Carbohydrates For Hypoglycemia ) 15 - 30 gm PO UD PRN PRN Reason: Hypoglycemia Protocol Stop: 11/20/22 01:29 Ondansetron HCl (Ondansetron Inj 2 Mg/Ml 2 Ml Vial) 4 mg IV Q4H PRN PRN Reason: Nausea Stop: 11/20/22 11:13 Last Admin: 10/23/22 12:32 Dose: 4 mg Pantoprazole Sodium (Pantoprazole 40 Mg Tab) 40 mg PO DAILYBB [facility] Stop: 11/20/22 06:29 Last Admin: 10/26/22 06:14 Dose: 40 mg Pentoxifylline (Pentoxifylline 400mg Ext Rel Tab) 400 mg PO AMHS [facility] Stop: 11/20/22 08:59 Last Admin: 10/26/22 08:14 Dose: 400 mg Potassium Chloride (Potassium Chloride 10 Meq Tabcr) 10 meq PO QAM [facility] Stop: 11/26/22 08:59 Topiramate (Topiramate 100 Mg Tab) 100 mg PO QID [facility] Stop: 11/20/22 08:59 Last Admin: 10/26/22 12:08 Dose: 100 mg Urea (Urea (Urea-Na) 15 Gm Pack) 15 gm PO BID [facility] Stop: 11/21/22 03:24 Last Admin: 10/26/22 08:13 Dose: 15 gm
[2022-10-26] MEDS: amLODIPine BESYLATE 5 MG TAB PO SCH (21:19)
[2022-10-27] MEDS: PANTOprazole 40 MG TAB PO SCH (06:19)
[2022-10-27] MEDS: LEVOTHYROXINE SODIUM 112 MCG TABLET PO SCH (06:20)
[2022-10-27 06:53] LABS: BUN Creatinine Ratio 56.9 (10-20); Calcium 9.8 mg/dl (8.6-10.3); Creatinine Clr Calc Pharmacy 29.5 ml/min; Est GFR (African American) 42.7 ml/min; Est GFR (Non-African American) 36.9 ml/min; Potassium 4.5 mmol/L (3.5-5.1)
[2022-10-27] MEDS: ATORVASTATIN 40 MG TAB PO SCH (09:01)
[2022-10-27] MEDS: ASPIRIN 81 MG ECTAB PO SCH (09:01)
[2022-10-27] MEDS: EZETIMIBE 10 MG TABLET PO SCH (09:01)
[2022-10-27] MEDS: DOCUSATE SODIUM 100 MG CAP PO SCH ×2 (09:01→20:45)
[2022-10-27] MEDS: METOPROLOL SUCC 25MG EXT REL TAB PO SCH (09:02)
[2022-10-27] MEDS: FUROSEMIDE 20 MG TAB PO SCH (09:02)
[2022-10-27] MEDS: TOPIRAMATE 100 MG TAB PO SCH ×4 (09:03→20:47)
[2022-10-27] MEDS: POTASSIUM CHLORIDE 10 MEQ TABCR PO SCH (09:03)
[2022-10-27] MEDS: PENTOXIFYLLINE 400MG EXT REL TAB PO SCH ×2 (09:03→20:45)
[2022-10-27] MEDS: INSULIN ASPART PER UNIT CHARGE SC SCH ×4 (09:03→20:48)
[2022-10-27] MEDS: UREA (UREA-NA) 15 GM PACK PO SCH ×2 (09:07→20:45)
[2022-10-27] MEDS: HEPARIN SOD 5,000 UNIT/0.5 ML VIAL SQ SCH ×3 (09:10→20:55)
--- NOTE | 2022-10-27 14:09 | Hospitalist Progress Note ---
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 She is being managed for the following: Acute on chronic hyponatremia Likely SIADH Patient presents with fall and found to be hyponatremic with Na of 114 at presentation. Urine osmolality 428 and urine sodium 41, likely SIADH Has history of hyponatremia [outpatient chart review with sodium level of 127 in September and October of 2021; it was low normal prior to that] complicated by poor appetite/tramadol/trileptal (dose was recently increased from 300 to 450 around the hand Sx time per pt). Of note, pt follows pain Mx and is on trileptal and topamax for about a year for neuropathic pain; Trileptal dose was increased recently. Trileptal contributes to SIADH and topamax contributes to anorexia; will consult pain management for recs for alternatives -------> Pain Mx evaled: continue holding trileptal/cw home topamax/ cw hydrocodone 5/325 q6h prn Sodium level improving, pt reports somewhat improving appetite. Nephrology on board, No IV fluids/fluid restriction of 1.5 L per day, on urea and lasix. Encourage diet/increase protein intake. Home lisinopril on hold. Hold home tramadol, use Vicodin instead for severe pain. DC home trileptal. Appreciate nephrology input and recommendation Has been on urea, Lasix 10 mg IV twice daily and potassium supplement with fluid restriction Sodium level has been improving which is 132 as of 10/25/2022 We will continue current management and monitor PRP Her sodium level has gone up to 133 with slight increase in BUN and creatinine at 74/1.48 Medications have been adjusted to control hyponatremia Sodium level has gone up to 134 and remains clinically stable Carpal tunnel syndrome Status post surgery about 2 weeks ago Discussed with the surgeon and the sutures can be taken out Water to remove sutures was placed and discussed with the patient Status post removal of the sutures No acute symptoms Fall Generalized weakness Ambulatory dysfunction From advanced age, complicated with recent carpal tunnel surgery, hyponatremia and poor appetite. Patient uses walker PT/OT, fall precaution-await recommendation May need to go to rehab for short-term Awaiting placement has been getting physical therapy Likely to be discharged on Sunday/Sunday Other chronic medical conditions: Resume/continue with home meds as able CAD status post stent PVD, patient follows with [facility] vascular surgery history of CVA hypertension, c/w home meds as able. hyperlipidemia on statin Rx DM2 diet-controlled, well-controlled as of recent hemoglobin A1c of 5.9 last September 2022 hypothyroidism, euthyroid as of this admission's TSH chronic anemia, hemoglobin at baseline mood disorder, stable past tobacco abuse DVT prophylaxis: Hep SC Full code Dispo: pending nephro clearance, to rehab. Patient son Mr. Miguel Bustillo, contact #[phone]. Admission and Anticipated Discharge Date Admission Date: October 21, 2022 Subjective 10/25/2022 The patient was seen and examined in medical telemetry unit She has been feeling much better and is still has minimal pain involving the carpal tunnel surgery site She has been getting physical therapy and getting stronger Denies any other significant symptoms 10/26/2022 The patient was seen and examined in medical telemetry unit She has been feeling much better and denies any significant symptoms She has been getting physical therapy and awaiting placement Sutures from CTS surgery have been removed 10/27/2022 The patient was seen and examined in medical telemetry unit She has been stable without any significant symptoms Awaiting placement Denies any chest pain, palpitation, shortness of breath, nausea and or vomiting Has been getting physical therapy and doing well Review of Systems Review of Systems: All systems reviewed and are unremarkable except as noted below Physical Exam Physical Exam: Sitting on a chair without any acute distress Constitutional: well developed, well nourished, + ill appearing and + obese Eyes: PERRL, conjunctivae normal, anicteric sclerae ENMT: external ear and nose normal, oropharynx normal Neck: trachea midline, no thyromegaly Respiratory: no respiratory distress Auscultation: lungs clear to auscultation bilaterally Cardiovascular: Rate/Rhythm: regular rate and regular rhythm; not tachycardic Heart Sounds: normal S1 and normal S2; no murmur Extremities: + edema (Trace edema bilaterally) Gastrointestinal (Abdomen): Inspection/Auscultation: normal bowel sounds; abdomen not distended Percussion/Palpation: + abdomen tender Musculoskeletal: No acute arthritis involving any of the joint Neurologic: normal touch/pain/proprioception and moves all extremities; no focal motor deficits Lymphatic: no cervical or axillary lymphadenopathy Results & Data Results & Data Vital Signs (Past 12 Hours) Vital Signs Temp Pulse Pulse Resp BP Pulse Ox O2 Del Method 10/27/22 11:59 36.5 C 90 18 148/70 H 98 Room Air 10/27/22 07:41 Room Air 10/27/22 07:33 36.5 C 80 18 127/72 96 Room Air 10/27/22 07:06 81 10/27/22 03:49 36.5 C 84 18 109/69 95 Room Air Laboratory Results [facility] 10/27/22 05:42 Sodium 134 L Potassium 4.5 Chloride 105 Carbon Dioxide 20 L BUN 78 H Creatinine 1.37 H Glucose 97 Calcium 9.8 Medications Administered Current Inpatient Medications Acetaminophen (Acetaminophen 325 Mg Tab) 650 mg PO Q4H PRN PRN Reason: Pain or Fever Stop: 11/20/22 01:29 Last Admin: 10/25/22 20:02 Dose: 650 mg Hydrocodone Bitart/Acetaminophen (Hydrocodone/Acetamophen 5/325mg Tab) 1 tab PO Q6H PRN PRN Reason: pain,mild or severe Stop: 11/04/22 01:29 Last Admin: 10/25/22 21:33 Dose: 1 tab Amlodipine Besylate (Amlodipine Besylate 5 Mg Tab) 2.5 mg PO HS [facility] Stop: 11/20/22 20:59 Last Admin: 10/26/22 21:19 Dose: 2.5 mg Aspirin (Aspirin 81 Mg Ectab) 81 mg PO DAILY [facility] Stop: 11/20/22 08:59 Last Admin: 10/27/22 09:01 Dose: 81 mg Atorvastatin Calcium (Atorvastatin 40 Mg Tab) 80 mg PO DAILY [facility] Stop: 11/20/22 08:59 Last Admin: 10/27/22 09:01 Dose: 80 mg Dextrose (Dextrose 50% 50 Ml Syringe) 25 - 50 ml IV UD PRN; Protocol PRN Reason: Hypoglycemia Protocol Stop: 11/20/22 01:29 Docusate Sodium (Docusate Sodium 100 Mg Cap) 100 mg PO BID [facility] Stop: 11/20/22 10:59 Last Admin: 10/27/22 09:01 Dose: 100 mg Ezetimibe (Ezetimibe 10 Mg Tablet) 10 mg PO QAM [facility] Stop: 11/20/22 08:59 Last Admin: 10/27/22 09:01 Dose: 10 mg Furosemide (Furosemide 20 Mg Tab) 20 mg PO QAM [facility] Stop: 11/26/22 08:59 Last Admin: 10/27/22 09:02 Dose: 20 mg Glucagon (Glucagon For Inj 1 Mg Vial) 1 mg SQ UD PRN; Protocol PRN Reason: Hypoglycemia Protocol Stop: 11/20/22 01:29 Glucose (Glucose 10 Tab/Tube) 4 - 8 tab PO UD PRN; Protocol PRN Reason: Hypoglycemia Treatment Stop: 11/20/22 01:29 Glucose (Glucose 40% Gel 15 Gm Tube) 15 - 30 gm PO UD PRN; Protocol PRN Reason: Hypoglycemia Protocol Stop: 11/20/22 01:29 Heparin Sodium (Porcine) (Heparin Sod 5,000 Unit/0.5 Ml Vial) 5,000 units SQ Q12 [facility] Stop: 11/21/22 20:59 Last Admin: 10/27/22 09:10 Dose: Not Given Insulin Aspart (Insulin Aspart Per Unit Charge) 0 units SC ACHS [facility] Stop: 11/20/22 01:29 Last Admin: 10/27/22 12:45 Dose: 3 units Levothyroxine Sodium (Levothyroxine Sodium 112 Mcg Tablet) 112 mcg PO DAILYBB [facility] Stop: 11/20/22 06:29 Last Admin: 10/27/22 06:20 Dose: 112 mcg Lisinopril (Lisinopril 40 Mg Tab) 40 mg PO QAM [facility] Stop: 11/20/22 08:59 Last Admin: 10/21/22 09:46 Dose: 40 mg Metoprolol Succinate (Metoprolol Succ 25mg Ext Rel Tab) 25 mg PO DAILY [facility] Stop: 11/20/22 08:59 Last Admin: 10/27/22 09:02 Dose: 25 mg Miscellaneous (Carbohydrates For Hypoglycemia ) 15 - 30 gm PO UD PRN PRN Reason: Hypoglycemia Protocol Stop: 11/20/22 01:29 Ondansetron HCl (Ondansetron Inj 2 Mg/Ml 2 Ml Vial) 4 mg IV Q4H PRN PRN Reason: Nausea Stop: 11/20/22 11:13 Last Admin: 10/23/22 12:32 Dose: 4 mg Pantoprazole Sodium (Pantoprazole 40 Mg Tab) 40 mg PO DAILYBB [facility] Stop: 11/20/22 06:29 Last Admin: 10/27/22 06:19 Dose: 40 mg Pentoxifylline (Pentoxifylline 400mg Ext Rel Tab) 400 mg PO AMHS [facility] Stop: 11/20/22 08:59 Last Admin: 10/27/22 09:03 Dose: 400 mg Potassium Chloride (Potassium Chloride 10 Meq Tabcr) 10 meq PO QAM [facility] Stop: 11/26/22 08:59 Last Admin: 10/27/22 09:03 Dose: 10 meq Topiramate (Topiramate 100 Mg Tab) 100 mg PO QID [facility] Stop: 11/20/22 08:59 Last Admin: 10/27/22 14:02 Dose: 100 mg Urea (Urea (Urea-Na) 15 Gm Pack) 15 gm PO BID [facility] Stop: 11/21/22 03:24 Last Admin: 10/27/22 09:07 Dose: 15 gm
[2022-10-27] MEDS: amLODIPine BESYLATE 5 MG TAB PO SCH (20:46)
[2022-10-28] MEDS: HYDROCODONE/ACETAMOPHEN 5/325MG TAB PO PRN ×3 (02:21→20:27)
[2022-10-28] MEDS: PANTOprazole 40 MG TAB PO SCH (04:54)
[2022-10-28] MEDS: ACETAMINOPHEN 325 MG TAB PO PRN ×2 (04:54→17:44)
[2022-10-28] MEDS: LEVOTHYROXINE SODIUM 112 MCG TABLET PO SCH (04:54)
[2022-10-28] MEDS ORDERED: TROLAMINE SALICYLATE 10% CRM 255 APPLN/85 GM TUBE EXT PRN (05:15)
[2022-10-28] MEDS: HEPARIN SOD 5,000 UNIT/0.5 ML VIAL SQ SCH ×2 (08:18→20:29)
[2022-10-28] MEDS: ATORVASTATIN 40 MG TAB PO SCH (08:20)
[2022-10-28] MEDS: DOCUSATE SODIUM 100 MG CAP PO SCH ×2 (08:20→20:27)
[2022-10-28] MEDS: ASPIRIN 81 MG ECTAB PO SCH (08:20)
[2022-10-28] MEDS: METOPROLOL SUCC 25MG EXT REL TAB PO SCH (08:21)
[2022-10-28] MEDS: EZETIMIBE 10 MG TABLET PO SCH (08:21)
[2022-10-28] MEDS: PENTOXIFYLLINE 400MG EXT REL TAB PO SCH ×2 (08:21→20:27)
[2022-10-28] MEDS: UREA (UREA-NA) 15 GM PACK PO SCH (08:21)
[2022-10-28] MEDS: POTASSIUM CHLORIDE 10 MEQ TABCR PO SCH (08:21)
[2022-10-28] MEDS: FUROSEMIDE 20 MG TAB PO SCH (08:21)
[2022-10-28] MEDS: TOPIRAMATE 100 MG TAB PO SCH ×4 (08:21→20:28)
[2022-10-28] MEDS: INSULIN ASPART PER UNIT CHARGE SC SCH ×4 (08:29→20:41)
--- NOTE | 2022-10-28 13:22 | Hospitalist Progress Note ---
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 She is being managed for the following: Acute on chronic hyponatremia Likely SIADH Patient presents with fall and found to be hyponatremic with Na of 114 at presentation. Urine osmolality 428 and urine sodium 41, likely SIADH Has history of hyponatremia [outpatient chart review with sodium level of 127 in September and October of 2021; it was low normal prior to that] complicated by poor appetite/tramadol/trileptal (dose was recently increased from 300 to 450 around the hand Sx time per pt). Of note, pt follows pain Mx and is on trileptal and topamax for about a year for neuropathic pain; Trileptal dose was increased recently. Trileptal contributes to SIADH and topamax contributes to anorexia; will consult pain management for recs for alternatives -------> Pain Mx evaled: continue holding trileptal/cw home topamax/ cw hydrocodone 5/325 q6h prn Sodium level improving, pt reports somewhat improving appetite. Nephrology on board, No IV fluids/fluid restriction of 1.5 L per day, on urea and lasix. Encourage diet/increase protein intake. Home lisinopril on hold. Hold home tramadol, use Vicodin instead for severe pain. DC home trileptal. Appreciate nephrology input and recommendation Has been on urea, Lasix 10 mg IV twice daily and potassium supplement with fluid restriction Sodium level has been improving which is 132 as of 10/25/2022 We will continue current management and monitor PRP Her sodium level has gone up to 133 with slight increase in BUN and creatinine at 74/1.48 Medications have been adjusted to control hyponatremia Sodium level has gone up to 134 and remains clinically stable We will discontinue urea and she has been taking extra salt with meals Will check PRP on Sunday Carpal tunnel syndrome Status post surgery about 2 weeks ago Discussed with the surgeon and the sutures can be taken out Water to remove sutures was placed and discussed with the patient Status post removal of the sutures No acute symptoms Fall Generalized weakness Ambulatory dysfunction From advanced age, complicated with recent carpal tunnel surgery, hyponatremia and poor appetite. Patient uses walker PT/OT, fall precaution-await recommendation May need to go to rehab for short-term Awaiting placement has been getting physical therapy Likely to be discharged on Sunday/Sunday Other chronic medical conditions: Resume/continue with home meds as able CAD status post stent PVD, patient follows with [facility] vascular surgery history of CVA hypertension, c/w home meds as able. hyperlipidemia on statin Rx DM2 diet-controlled, well-controlled as of recent hemoglobin A1c of 5.9 last September 2022 hypothyroidism, euthyroid as of this admission's TSH chronic anemia, hemoglobin at baseline mood disorder, stable past tobacco abuse DVT prophylaxis: Hep SC Full code Dispo: pending nephro clearance, to rehab. Patient son Mr. Miguel Bustillo, contact #[phone]. Admission and Anticipated Discharge Date Admission Date: October 21, 2022 Subjective 10/25/2022 The patient was seen and examined in medical telemetry unit She has been feeling much better and is still has minimal pain involving the carpal tunnel surgery site She has been getting physical therapy and getting stronger Denies any other significant symptoms 10/26/2022 The patient was seen and examined in medical telemetry unit She has been feeling much better and denies any significant symptoms She has been getting physical therapy and awaiting placement Sutures from CTS surgery have been removed 10/27/2022 The patient was seen and examined in medical telemetry unit She has been stable without any significant symptoms Awaiting placement Denies any chest pain, palpitation, shortness of breath, nausea and or vomiting Has been getting physical therapy and doing well 10/28/2022 The patient was seen and examined in medical telemetry unit She remains stable and has been getting physical therapy regularly Denies any significant symptoms Awaiting placement likely discharge on Sunday Review of Systems Review of Systems: All systems reviewed and are unremarkable except as noted below Physical Exam Physical Exam: Sitting on a chair without any acute distress Constitutional: well developed, well nourished, + ill appearing and + obese Eyes: PERRL, conjunctivae normal, anicteric sclerae ENMT: external ear and nose normal, oropharynx normal Neck: trachea midline, no thyromegaly Respiratory: no respiratory distress Auscultation: lungs clear to auscultation bilaterally Cardiovascular: Rate/Rhythm: regular rate and regular rhythm; not tachycardic Heart Sounds: normal S1 and normal S2; no murmur Extremities: + edema (Trace edema bilaterally) Gastrointestinal (Abdomen): Inspection/Auscultation: normal bowel sounds; abdomen not distended Percussion/Palpation: + abdomen tender Musculoskeletal: No acute arthritis involving any joint Neurologic: normal touch/pain/proprioception and moves all extremities; no focal motor deficits Psychiatric: A+Ox3, euthymic affect Lymphatic: no cervical or axillary lymphadenopathy Results & Data Results & Data Vital Signs (Past 12 Hours) Vital Signs Temp Pulse Pulse Resp BP BP Pulse Ox 10/28/22 11:10 36.3 C L 81 16 108/72 98 10/28/22 07:30 36.4 C L 75 16 113/72 97 10/28/22 07:29 64 10/28/22 02:44 36.6 C 74 18 121/72 95 O2 Del Method 10/28/22 11:10 Room Air 10/28/22 07:30 Room Air 10/28/22 07:29 10/28/22 02:44 Room Air Medications Administered Current Inpatient Medications Acetaminophen (Acetaminophen 325 Mg Tab) 650 mg PO Q4H PRN PRN Reason: Pain or Fever Stop: 11/20/22 01:29 Last Admin: 10/28/22 04:54 Dose: 650 mg Hydrocodone Bitart/Acetaminophen (Hydrocodone/Acetamophen 5/325mg Tab) 1 tab PO Q6H PRN PRN Reason: pain,mild or severe Stop: 11/04/22 01:29 Last Admin: 10/28/22 10:49 Dose: 1 tab Amlodipine Besylate (Amlodipine Besylate 5 Mg Tab) 2.5 mg PO HS DAJA Stop: 11/20/22 20:59 Last Admin: 10/27/22 20:46 Dose: 2.5 mg Aspirin (Aspirin 81 Mg Ectab) 81 mg PO DAILY [facility] Stop: 11/20/22 08:59 Last Admin: 10/28/22 08:20 Dose: 81 mg Atorvastatin Calcium (Atorvastatin 40 Mg Tab) 80 mg PO DAILY [facility] Stop: 11/20/22 08:59 Last Admin: 10/28/22 08:20 Dose: 80 mg Dextrose (Dextrose 50% 50 Ml Syringe) 25 - 50 ml IV UD PRN; Protocol PRN Reason: Hypoglycemia Protocol Stop: 11/20/22 01:29 Docusate Sodium (Docusate Sodium 100 Mg Cap) 100 mg PO BID [facility] Stop: 11/20/22 10:59 Last Admin: 10/28/22 08:20 Dose: 100 mg Ezetimibe (Ezetimibe 10 Mg Tablet) 10 mg PO QAM [facility] Stop: 11/20/22 08:59 Last Admin: 10/28/22 08:21 Dose: 10 mg Furosemide (Furosemide 20 Mg Tab) 20 mg PO QAM [facility] Stop: 11/26/22 08:59 Last Admin: 10/28/22 08:21 Dose: 20 mg Glucagon (Glucagon For Inj 1 Mg Vial) 1 mg SQ UD PRN; Protocol PRN Reason: Hypoglycemia Protocol Stop: 11/20/22 01:29 Glucose (Glucose 10 Tab/Tube) 4 - 8 tab PO UD PRN; Protocol PRN Reason: Hypoglycemia Treatment Stop: 11/20/22 01:29 Glucose (Glucose 40% Gel 15 Gm Tube) 15 - 30 gm PO UD PRN; Protocol PRN Reason: Hypoglycemia Protocol Stop: 11/20/22 01:29 Heparin Sodium (Porcine) (Heparin Sod 5,000 Unit/0.5 Ml Vial) 5,000 units SQ Q12 [facility] Stop: 11/21/22 20:59 Last Admin: 10/28/22 08:18 Dose: Not Given Insulin Aspart (Insulin Aspart Per Unit Charge) 0 units SC ACHS [facility] Stop: 11/20/22 01:29 Last Admin: 10/28/22 12:33 Dose: Not Given Levothyroxine Sodium (Levothyroxine Sodium 112 Mcg Tablet) 112 mcg PO DAILYBB [facility] Stop: 11/20/22 06:29 Last Admin: 10/28/22 04:54 Dose: 112 mcg Lisinopril (Lisinopril 40 Mg Tab) 40 mg PO QAM [facility] Stop: 11/20/22 08:59 Last Admin: 10/21/22 09:46 Dose: 40 mg Metoprolol Succinate (Metoprolol Succ 25mg Ext Rel Tab) 25 mg PO DAILY [facility] Stop: 11/20/22 08:59 Last Admin: 10/28/22 08:21 Dose: 25 mg Miscellaneous (Carbohydrates For Hypoglycemia ) 15 - 30 gm PO UD PRN PRN Reason: Hypoglycemia Protocol Stop: 11/20/22 01:29 Ondansetron HCl (Ondansetron Inj 2 Mg/Ml 2 Ml Vial) 4 mg IV Q4H PRN PRN Reason: Nausea Stop: 11/20/22 11:13 Last Admin: 10/23/22 12:32 Dose: 4 mg Pantoprazole Sodium (Pantoprazole 40 Mg Tab) 40 mg PO DAILYBB [facility] Stop: 11/20/22 06:29 Last Admin: 10/28/22 04:54 Dose: 40 mg Pentoxifylline (Pentoxifylline 400mg Ext Rel Tab) 400 mg PO AMHS [facility] Stop: 11/20/22 08:59 Last Admin: 10/28/22 08:21 Dose: 400 mg Potassium Chloride (Potassium Chloride 10 Meq Tabcr) 10 meq PO QAM [facility] Stop: 11/26/22 08:59 Last Admin: 10/28/22 08:21 Dose: 10 meq Topiramate (Topiramate 100 Mg Tab) 100 mg PO QID [facility] Stop: 11/20/22 08:59 Last Admin: 10/28/22 12:57 Dose: 100 mg Trolamine Salicylate (Trolamine Salicylate 10% Crm 255 Appln/85 Gm Tube) 1 appln EXT TID PRN PRN Reason: wrist pain Stop: 11/27/22 05:14 Last Admin: 10/28/22 11:49 Dose: 1 appln Urea (Urea (Urea-Na) 15 Gm Pack) 15 gm PO BID [facility] Stop: 11/21/22 03:24 Last Admin: 10/28/22 08:21 Dose: 15 gm
[2022-10-28] MEDS: amLODIPine BESYLATE 5 MG TAB PO SCH (20:28)
[2022-10-29] MEDS: LEVOTHYROXINE SODIUM 112 MCG TABLET PO SCH (06:07)
[2022-10-29] MEDS: PANTOprazole 40 MG TAB PO SCH (06:07)
[2022-10-29] MEDS: INSULIN ASPART PER UNIT CHARGE SC SCH ×4 (08:19→21:13)
[2022-10-29] MEDS: HEPARIN SOD 5,000 UNIT/0.5 ML VIAL SQ SCH ×2 (08:20→20:08)
[2022-10-29] MEDS: ASPIRIN 81 MG ECTAB PO SCH (08:21)
[2022-10-29] MEDS: DOCUSATE SODIUM 100 MG CAP PO SCH ×2 (08:21→20:08)
[2022-10-29] MEDS: FUROSEMIDE 20 MG TAB PO SCH (08:21)
[2022-10-29] MEDS: PENTOXIFYLLINE 400MG EXT REL TAB PO SCH ×2 (08:21→20:05)
[2022-10-29] MEDS: TOPIRAMATE 100 MG TAB PO SCH ×4 (08:21→20:04)
[2022-10-29] MEDS: POTASSIUM CHLORIDE 10 MEQ TABCR PO SCH (08:21)
[2022-10-29] MEDS: EZETIMIBE 10 MG TABLET PO SCH (08:21)
[2022-10-29] MEDS: ATORVASTATIN 40 MG TAB PO SCH (08:21)
[2022-10-29] MEDS: METOPROLOL SUCC 25MG EXT REL TAB PO SCH (08:21)
--- NOTE | 2022-10-29 13:27 | Hospitalist Progress Note ---
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 She is being managed for the following: Acute on chronic hyponatremia Likely SIADH Patient presents with fall and found to be hyponatremic with Na of 114 at presentation. Urine osmolality 428 and urine sodium 41, likely SIADH Has history of hyponatremia [outpatient chart review with sodium level of 127 in September and October of 2021; it was low normal prior to that] complicated by poor appetite/tramadol/trileptal (dose was recently increased from 300 to 450 around the hand Sx time per pt). Of note, pt follows pain Mx and is on trileptal and topamax for about a year for neuropathic pain; Trileptal dose was increased recently. Trileptal contributes to SIADH and topamax contributes to anorexia; will consult pain management for recs for alternatives -------> Pain Mx evaled: continue holding trileptal/cw home topamax/ cw hydrocodone 5/325 q6h prn Sodium level improving, pt reports somewhat improving appetite. Nephrology on board, No IV fluids/fluid restriction of 1.5 L per day, on urea and lasix. Encourage diet/increase protein intake. Home lisinopril on hold. Hold home tramadol, use Vicodin instead for severe pain. DC home trileptal. Appreciate nephrology input and recommendation Has been on urea, Lasix 10 mg IV twice daily and potassium supplement with fluid restriction Sodium level has been improving which is 132 as of 10/25/2022 We will continue current management and monitor PRP Her sodium level has gone up to 133 with slight increase in BUN and creatinine at 74/1.48 Medications have been adjusted to control hyponatremia Sodium level has gone up to 134 and remains clinically stable We will discontinue urea and she has been taking extra salt with meals Will check PRP on Sunday She has been stable for the last few days and awaiting transfer Carpal tunnel syndrome Status post surgery about 2 weeks ago Discussed with the surgeon and the sutures can be taken out Water to remove sutures was placed and discussed with the patient Status post removal of the sutures No acute symptoms Fall Generalized weakness Ambulatory dysfunction From advanced age, complicated with recent carpal tunnel surgery, hyponatremia and poor appetite. Patient uses walker PT/OT, fall precaution-await recommendation May need to go to rehab for short-term Awaiting placement has been getting physical therapy Likely to be discharged on Sunday/Sunday Has been getting physical therapy and doing much better Other chronic medical conditions: Resume/continue with home meds as able CAD status post stent PVD, patient follows with [facility] vascular surgery history of CVA hypertension, c/w home meds as able. hyperlipidemia on statin Rx DM2 diet-controlled, well-controlled as of recent hemoglobin A1c of 5.9 last September 2022 hypothyroidism, euthyroid as of this admission's TSH chronic anemia, hemoglobin at baseline mood disorder, stable past tobacco abuse DVT prophylaxis: Hep SC Full code Dispo: pending nephro clearance, to rehab. Patient son Mr. Miguel Bustillo, contact #[phone]. Likely discharge Sunday or Sunday Admission and Anticipated Discharge Date Admission Date: October 21, 2022 Subjective 10/25/2022 The patient was seen and examined in medical telemetry unit She has been feeling much better and is still has minimal pain involving the carpal tunnel surgery site She has been getting physical therapy and getting stronger Denies any other significant symptoms 10/26/2022 The patient was seen and examined in medical telemetry unit She has been feeling much better and denies any significant symptoms She has been getting physical therapy and awaiting placement Sutures from CTS surgery have been removed 10/27/2022 The patient was seen and examined in medical telemetry unit She has been stable without any significant symptoms Awaiting placement Denies any chest pain, palpitation, shortness of breath, nausea and or vomiting Has been getting physical therapy and doing well 10/28/2022 The patient was seen and examined in medical telemetry unit She remains stable and has been getting physical therapy regularly Denies any significant symptoms Awaiting placement likely discharge on Sunday10/29/2022 The patient was seen and examined in medical telemetry unit She has been stable for the last few days and [facility] Denies any significant symptoms Review of Systems Review of Systems: All systems reviewed and are unremarkable except as noted below Physical Exam Physical Exam: Sitting on a chair without any acute distress Constitutional: well developed, well nourished, + ill appearing and + obese Eyes: PERRL, conjunctivae normal, anicteric sclerae ENMT: external ear and nose normal, oropharynx normal Neck: trachea midline, no thyromegaly Respiratory: no respiratory distress Auscultation: lungs clear to auscultation bilaterally Cardiovascular: Rate/Rhythm: regular rate and regular rhythm; not tachycardic Heart Sounds: normal S1 and normal S2; no murmur Extremities: + edema (Trace edema bilaterally) Gastrointestinal (Abdomen): Inspection/Auscultation: normal bowel sounds; abdomen not distended Percussion/Palpation: + abdomen tender Neurologic: normal touch/pain/proprioception and moves all extremities; no focal motor deficits Psychiatric: A+Ox3, euthymic affect Lymphatic: no cervical or axillary lymphadenopathy Results & Data Results & Data Vital Signs (Past 12 Hours) Vital Signs Temp Pulse Pulse Pulse Resp BP BP 10/29/22 12:00 36.7 C 88 18 131/69 10/29/22 08:20 10/29/22 07:55 36.5 C 72 16 126/74 10/29/22 07:14 71 10/29/22 03:28 36.3 C L 74 18 116/70 Pulse Ox O2 Del Method 10/29/22 12:00 97 Room Air 10/29/22 08:20 Room Air 10/29/22 07:55 96 Room Air 10/29/22 07:14 10/29/22 03:28 95 Room Air Medications Administered Current Inpatient Medications Acetaminophen (Acetaminophen 325 Mg Tab) 650 mg PO Q4H PRN PRN Reason: Pain or Fever Stop: 11/20/22 01:29 Last Admin: 10/28/22 17:44 Dose: 650 mg Hydrocodone Bitart/Acetaminophen (Hydrocodone/Acetamophen 5/325mg Tab) 1 tab PO Q6H PRN PRN Reason: pain,mild or severe Stop: 11/04/22 01:29 Last Admin: 10/28/22 20:27 Dose: 1 tab Amlodipine Besylate (Amlodipine Besylate 5 Mg Tab) 2.5 mg PO HS [facility] Stop: 11/20/22 20:59 Last Admin: 10/28/22 20:28 Dose: 2.5 mg Aspirin (Aspirin 81 Mg Ectab) 81 mg PO DAILY [facility] Stop: 11/20/22 08:59 Last Admin: 10/29/22 08:21 Dose: 81 mg Atorvastatin Calcium (Atorvastatin 40 Mg Tab) 80 mg PO DAILY [facility] Stop: 11/20/22 08:59 Last Admin: 10/29/22 08:21 Dose: 80 mg Dextrose (Dextrose 50% 50 Ml Syringe) 25 - 50 ml IV UD PRN; Protocol PRN Reason: Hypoglycemia Protocol Stop: 11/20/22 01:29 Docusate Sodium (Docusate Sodium 100 Mg Cap) 100 mg PO BID [facility] Stop: 11/20/22 10:59 Last Admin: 10/29/22 08:21 Dose: 100 mg Ezetimibe (Ezetimibe 10 Mg Tablet) 10 mg PO QAM [facility] Stop: 11/20/22 08:59 Last Admin: 10/29/22 08:21 Dose: 10 mg Furosemide (Furosemide 20 Mg Tab) 20 mg PO QAM [facility] Stop: 11/26/22 08:59 Last Admin: 10/29/22 08:21 Dose: 20 mg Glucagon (Glucagon For Inj 1 Mg Vial) 1 mg SQ UD PRN; Protocol PRN Reason: Hypoglycemia Protocol Stop: 11/20/22 01:29 Glucose (Glucose 10 Tab/Tube) 4 - 8 tab PO UD PRN; Protocol PRN Reason: Hypoglycemia Treatment Stop: 11/20/22 01:29 Glucose (Glucose 40% Gel 15 Gm Tube) 15 - 30 gm PO UD PRN; Protocol PRN Reason: Hypoglycemia Protocol Stop: 11/20/22 01:29 Heparin Sodium (Porcine) (Heparin Sod 5,000 Unit/0.5 Ml Vial) 5,000 units SQ Q12 [facility] Stop: 11/21/22 20:59 Last Admin: 10/29/22 08:20 Dose: Not Given Insulin Aspart (Insulin Aspart Per Unit Charge) 0 units SC ACHS [facility] Stop: 11/20/22 01:29 Last Admin: 10/29/22 12:09 Dose: Not Given Levothyroxine Sodium (Levothyroxine Sodium 112 Mcg Tablet) 112 mcg PO DAILYBB [facility] Stop: 11/20/22 06:29 Last Admin: 10/29/22 06:07 Dose: 112 mcg Lisinopril (Lisinopril 40 Mg Tab) 40 mg PO QAM [facility] Stop: 11/20/22 08:59 Last Admin: 10/21/22 09:46 Dose: 40 mg Metoprolol Succinate (Metoprolol Succ 25mg Ext Rel Tab) 25 mg PO DAILY [facility] Stop: 11/20/22 08:59 Last Admin: 10/29/22 08:21 Dose: 25 mg Miscellaneous (Carbohydrates For Hypoglycemia ) 15 - 30 gm PO UD PRN PRN Reason: Hypoglycemia Protocol Stop: 11/20/22 01:29 Ondansetron HCl (Ondansetron Inj 2 Mg/Ml 2 Ml Vial) 4 mg IV Q4H PRN PRN Reason: Nausea Stop: 11/20/22 11:13 Last Admin: 10/23/22 12:32 Dose: 4 mg Pantoprazole Sodium (Pantoprazole 40 Mg Tab) 40 mg PO DAILYBB [facility] Stop: 11/20/22 06:29 Last Admin: 10/29/22 06:07 Dose: 40 mg Pentoxifylline (Pentoxifylline 400mg Ext Rel Tab) 400 mg PO AMHS [facility] Stop: 11/20/22 08:59 Last Admin: 10/29/22 08:21 Dose: 400 mg Potassium Chloride (Potassium Chloride 10 Meq Tabcr) 10 meq PO QAM [facility] Stop: 11/26/22 08:59 Last Admin: 10/29/22 08:21 Dose: 10 meq Topiramate (Topiramate 100 Mg Tab) 100 mg PO QID [facility] Stop: 11/20/22 08:59 Last Admin: 10/29/22 12:10 Dose: 100 mg Trolamine Salicylate (Trolamine Salicylate 10% Crm 255 Appln/85 Gm Tube) 1 appln EXT TID PRN PRN Reason: wrist pain Stop: 11/27/22 05:14 Last Admin: 10/28/22 11:49 Dose: 1 appln
[2022-10-29] MEDS: amLODIPine BESYLATE 5 MG TAB PO SCH (20:05)
[2022-10-29] MEDS: ONDANSETRON INJ 2 MG/ML 2 ML VIAL IV PRN (23:27)
[2022-10-30] MEDS: PANTOprazole 40 MG TAB PO SCH (06:07)
[2022-10-30] MEDS: LEVOTHYROXINE SODIUM 112 MCG TABLET PO SCH (06:08)
[2022-10-30 07:16] LABS: Calcium 9.5 mg/dl (8.6-10.3); Creatinine Clr Calc Pharmacy 32.6 ml/min; Est GFR (African American) 48.7 ml/min; Potassium 3.6 mmol/L (3.5-5.1)
[2022-10-30] MEDS: INSULIN ASPART PER UNIT CHARGE SC SCH ×2 (08:35→12:26)
[2022-10-30] MEDS: ASPIRIN 81 MG ECTAB PO SCH (08:40)
[2022-10-30] MEDS: DOCUSATE SODIUM 100 MG CAP PO SCH (08:41)
[2022-10-30] MEDS: ATORVASTATIN 40 MG TAB PO SCH (08:41)
[2022-10-30] MEDS: EZETIMIBE 10 MG TABLET PO SCH (08:41)
[2022-10-30] MEDS: METOPROLOL SUCC 25MG EXT REL TAB PO SCH (08:42)
[2022-10-30] MEDS: PENTOXIFYLLINE 400MG EXT REL TAB PO SCH (08:42)
[2022-10-30] MEDS: FUROSEMIDE 20 MG TAB PO SCH (08:42)
[2022-10-30] MEDS: HEPARIN SOD 5,000 UNIT/0.5 ML VIAL SQ SCH (08:42)
[2022-10-30] MEDS: POTASSIUM CHLORIDE 10 MEQ TABCR PO SCH (08:43)
[2022-10-30] MEDS: TOPIRAMATE 100 MG TAB PO SCH ×2 (08:43→12:34)
--- NOTE | 2022-10-30 11:28 | Hospitalist Progress Note ---
Date of Service October 30, 2022 Assessment & Plan (1) Acute hyponatremia: Plan 76-year-old lady with PMH of CAD s/p stent, PVD, CVA, HTN, HLD, T2DM, hypothyroidism, chronic hyponatremia, chronic anemia [baseline hemoglobin around 11], GERD, mood disorder, past tobacco abuse who was recently prescribed Lasix 3 weeks ago [employer] for lower extremity edema [improved leg swelling at presentation] and who underwent outpatient right carpal tunnel surgery 1 week ago [employer] presented to the ED 10/20 with poor appetite since about the surgery time complicated with fall on the day of arrival, denies vertigo or funny sensation in the heart or palpitation or nausea or warmth just prior to fall. She is being managed for the following: Acute on chronic hyponatremia Likely SIADH Patient presents with fall and found to be hyponatremic with Na of 114 at presentation. Urine osmolality 428 and urine sodium 41, likely SIADH Has history of hyponatremia [outpatient chart review with sodium level of 127 in September and October of 2021; it was low normal prior to that] complicated by poor appetite/tramadol/trileptal (dose was recently increased from 300 to 450 around the hand Sx time per pt). Of note, pt follows pain Mx and is on trileptal and topamax for about a year for neuropathic pain; Trileptal dose was increased recently. Trileptal contributes to SIADH and topamax contributes to anorexia; will consult pain management for recs for alternatives -------> Pain Mx evaled: continue holding trileptal/cw home topamax/ cw hydrocodone 5/325 q6h prn Sodium level improving, pt reports somewhat improving appetite. Nephrology on board, No IV fluids/fluid restriction of 1.5 L per day, on urea and lasix. Encourage diet/increase protein intake. Home lisinopril on hold. Hold home tramadol, use Vicodin instead for severe pain. DC home trileptal. Appreciate nephrology input and recommendation Has been on urea, Lasix 10 mg IV twice daily and potassium supplement with fluid restriction Sodium level has been improving which is 132 as of 10/25/2022 We will continue current management and monitor PRP Her sodium level has gone up to 133 with slight increase in BUN and creatinine at 74/1.48 Medications have been adjusted to control hyponatremia Sodium level has gone up to 134 and remains clinically stable We will discontinue urea and she has been taking extra salt with meals Sodium level has been normalized at 140 and creatinine is improved to 1.23 She will be discharged this afternoon Carpal tunnel syndrome Status post surgery about 2 weeks ago Discussed with the surgeon and the sutures can be taken out Water to remove sutures was placed and discussed with the patient Status post removal of the sutures No acute symptoms Fall Generalized weakness Ambulatory dysfunction From advanced age, complicated with recent carpal tunnel surgery, hyponatremia and poor appetite. Patient uses walker PT/OT, fall precaution-await recommendation May need to go to rehab for short-term Awaiting placement has been getting physical therapy Likely to be discharged on Sunday/Sunday Has been getting physical therapy and doing much better We will continue PT OT following discharge Other chronic medical conditions: Resume/continue with home meds as able CAD status post stent PVD, patient follows with [facility] vascular surgery history of CVA hypertension, c/w home meds as able. -Remains stable hyperlipidemia on statin Rx DM2 diet-controlled, well-controlled as of recent hemoglobin A1c of 5.9 last September 2022 hypothyroidism, euthyroid as of this admission's TSH chronic anemia, hemoglobin at baseline mood disorder, stable past tobacco abuse DVT prophylaxis: Hep SC Full code Dispo: pending nephro clearance, to rehab. Patient son Mr. Miguel Bustillo, contact #[phone]. Will be discharged this afternoon to [facility] and Anticipated Discharge Date Admission Date: October 21, 2022 Subjective 10/25/2022 The patient was seen and examined in medical telemetry unit She has been feeling much better and is still has minimal pain involving the carpal tunnel surgery site She has been getting physical therapy and getting stronger Denies any other significant symptoms 10/26/2022 The patient was seen and examined in medical telemetry unit She has been feeling much better and denies any significant symptoms She has been getting physical therapy and awaiting placement Sutures from CTS surgery have been removed 10/27/2022 The patient was seen and examined in medical telemetry unit She has been stable without any significant symptoms Awaiting placement Denies any chest pain, palpitation, shortness of breath, nausea and or vomiting Has been getting physical therapy and doing well 10/28/2022 The patient was seen and examined in medical telemetry unit She remains stable and has been getting physical therapy regularly Denies any significant symptoms Awaiting placement likely discharge on Sunday10/29/2022 The patient was seen and examined in medical telemetry unit She has been stable for the last few days and waiting [facility] Denies any significant symptoms 10/30/2022 The patient was seen and examined in the medical telemetry unit She has been feeling much better this morning without any significant symptoms She was noted to have an episode of high blood pressure last night without any symptoms Denies any other symptoms this morning and will be discharged this afternoon Review of Systems Review of Systems: All systems reviewed and are unremarkable except as noted below Physical Exam Physical Exam: Sitting on a chair without any acute distress Constitutional: well developed, well nourished, + ill appearing and + obese Eyes: PERRL, conjunctivae normal, anicteric sclerae ENMT: external ear and nose normal, oropharynx normal Neck: trachea midline, no thyromegaly Respiratory: no respiratory distress Auscultation: lungs clear to auscultation bilaterally Cardiovascular: Rate/Rhythm: regular rate and regular rhythm; not tachycardic Heart Sounds: normal S1 and normal S2; no murmur Extremities: + edema (Trace edema bilaterally) Gastrointestinal (Abdomen): Inspection/Auscultation: normal bowel sounds; abdomen not distended Percussion/Palpation: + abdomen tender Musculoskeletal: No acute arthritis involving any joint Neurologic: normal touch/pain/proprioception and moves all extremities; no focal motor deficits Psychiatric: A+Ox3, euthymic affect Lymphatic: no cervical or axillary lymphadenopathy Results & Data Results & Data Vital Signs (Past 12 Hours) Vital Signs Temp Pulse Pulse Resp BP Pulse Ox O2 Del Method 10/30/22 07:56 Room Air 10/30/22 07:30 36.7 C 80 18 138/82 95 Room Air 10/30/22 05:59 79 10/30/22 03:43 36.5 C 81 20 122/78 96 Room Air 10/30/22 00:56 90 150/84 H 95 Room Air 10/30/22 00:36 106 H Laboratory Results [facility] 10/30/22 06:10 Sodium 140 Potassium 3.6 Chloride 108 H Carbon Dioxide 24 BUN 43 H Creatinine 1.23 H Glucose 104 H Calcium 9.5 Medications Administered Current Inpatient Medications Acetaminophen (Acetaminophen 325 Mg Tab) 650 mg PO Q4H PRN PRN Reason: Pain or Fever Stop: 11/20/22 01:29 Last Admin: 10/28/22 17:44 Dose: 650 mg Hydrocodone Bitart/Acetaminophen (Hydrocodone/Acetamophen 5/325mg Tab) 1 tab PO Q6H PRN PRN Reason: pain,mild or severe Stop: 11/04/22 01:29 Last Admin: 10/28/22 20:27 Dose: 1 tab Amlodipine Besylate (Amlodipine Besylate 5 Mg Tab) 2.5 mg PO HS DAJA Stop: 11/20/22 20:59 Last Admin: 10/29/22 20:05 Dose: 2.5 mg Aspirin (Aspirin 81 Mg Ectab) 81 mg PO DAILY DAJA Stop: 11/20/22 08:59 Last Admin: 10/30/22 08:40 Dose: 81 mg Atorvastatin Calcium (Atorvastatin 40 Mg Tab) 80 mg PO DAILY [facility] Stop: 11/20/22 08:59 Last Admin: 10/30/22 08:41 Dose: 80 mg Dextrose (Dextrose 50% 50 Ml Syringe) 25 - 50 ml IV UD PRN; Protocol PRN Reason: Hypoglycemia Protocol Stop: 11/20/22 01:29 Docusate Sodium (Docusate Sodium 100 Mg Cap) 100 mg PO BID [facility] Stop: 11/20/22 10:59 Last Admin: 10/30/22 08:41 Dose: 100 mg Ezetimibe (Ezetimibe 10 Mg Tablet) 10 mg PO QAM [facility] Stop: 11/20/22 08:59 Last Admin: 10/30/22 08:41 Dose: 10 mg Furosemide (Furosemide 20 Mg Tab) 20 mg PO QAM DAJA Stop: 11/26/22 08:59 Last Admin: 10/30/22 08:42 Dose: 20 mg Glucagon (Glucagon For Inj 1 Mg Vial) 1 mg SQ UD PRN; Protocol PRN Reason: Hypoglycemia Protocol Stop: 11/20/22 01:29 Glucose (Glucose 10 Tab/Tube) 4 - 8 tab PO UD PRN; Protocol PRN Reason: Hypoglycemia Treatment Stop: 11/20/22 01:29 Glucose (Glucose 40% Gel 15 Gm Tube) 15 - 30 gm PO UD PRN; Protocol PRN Reason: Hypoglycemia Protocol Stop: 11/20/22 01:29 Heparin Sodium (Porcine) (Heparin Sod 5,000 Unit/0.5 Ml Vial) 5,000 units SQ Q12 DAJA Stop: 11/21/22 20:59 Last Admin: 10/30/22 08:42 Dose: Not Given Insulin Aspart (Insulin Aspart Per Unit Charge) 0 units SC ACHS [facility] Stop: 11/20/22 01:29 Last Admin: 10/30/22 08:35 Dose: Not Given Levothyroxine Sodium (Levothyroxine Sodium 112 Mcg Tablet) 112 mcg PO DAILYBB [facility] Stop: 11/20/22 06:29 Last Admin: 10/30/22 06:08 Dose: 112 mcg Lisinopril (Lisinopril 40 Mg Tab) 40 mg PO QAM [facility] Stop: 11/20/22 08:59 Last Admin: 10/21/22 09:46 Dose: 40 mg Metoprolol Succinate (Metoprolol Succ 25mg Ext Rel Tab) 25 mg PO DAILY [facility] Stop: 11/20/22 08:59 Last Admin: 10/30/22 08:42 Dose: 25 mg Miscellaneous (Carbohydrates For Hypoglycemia ) 15 - 30 gm PO UD PRN PRN Reason: Hypoglycemia Protocol Stop: 11/20/22 01:29 Ondansetron HCl (Ondansetron Inj 2 Mg/Ml 2 Ml Vial) 4 mg IV Q4H PRN PRN Reason: Nausea Stop: 11/20/22 11:13 Last Admin: 10/29/22 23:27 Dose: 4 mg Pantoprazole Sodium (Pantoprazole 40 Mg Tab) 40 mg PO DAILYBB [facility] Stop: 11/20/22 06:29 Last Admin: 10/30/22 06:07 Dose: 40 mg Pentoxifylline (Pentoxifylline 400mg Ext Rel Tab) 400 mg PO [facility] Stop: 11/20/22 08:59 Last Admin: 10/30/22 08:42 Dose: 400 mg Potassium Chloride (Potassium Chloride 10 Meq Tabcr) 10 meq PO QAM [facility] Stop: 11/26/22 08:59 Last Admin: 10/30/22 08:43 Dose: 10 meq Topiramate (Topiramate 100 Mg Tab) 100 mg PO QID [facility] Stop: 11/20/22 08:59 Last Admin: 10/30/22 08:43 Dose: 100 mg Trolamine Salicylate (Trolamine Salicylate 10% Crm 255 Appln/85 Gm Tube) 1 appln EXT TID PRN PRN Reason: wrist pain Stop: 11/27/22 05:14 Last Admin: 10/28/22 11:49 Dose: 1 appln
--- NOTE | 2022-10-30 16:38 | Discharge Summary ---
Date of Service October 30, 2022 Admission HPI Per Admitting Provider History obtained from patient, family, and records. Medical history significant for CAD status post stent, PVD, history of CVA, hypertension, hyperlipidemia, DM2 diet-controlled, hypothyroidism, chronic hyponatremia, chronic anemia (baseline hemoglobin of 11), GERD, mood disorder, past tobacco abuse. Last confinement 2016 under Orthopedics spine service for elective cervical laminectomy. Seen at [facility] Nephrology office 3 weeks ago for follow-up visit. Furosemide prescribed for lower extremity edema. Improved leg swelling. Patient underwent outpatient right carpal tunnel surgery by [facility] orthopedics last week. Uncontrolled pain the last few days improved with outpatient tramadol Rx. Appetite not too good. Denies inordinate fluid intake. Patient felt lightheaded yesterday as she tried to get up from the couch at home. No vertigo. Posterior head trauma after falling backwards and striking the back of her head. No chest pain, no LOC, no unusual SOB. Patient brought to the ER for evaluation. 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 Admission Exam Per Admitting Provider Physical Exam: GENERAL: Comfortable, obese, pleasant, no respiratory distress SKIN: Pallor, warm HEENT: Pale palpebral conjunctivae, no ptosis, dry buccal mucosa NECK : Supple, short neck, no tenderness CHEST : CTA, no tenderness HEART : RRR, no obvious murmurs ABDOMEN: Some distention, nontender EXTREMITIES : Minimal LE swelling, no LE tenderness, subacute left ankle erythema as per patient, no other conspicuous deformities noted NEUROLOGIC : Coherent, no facial asymmetry, mild hearing impairment, gait and stance not assessed Principal Diagnosis Acute on chronic hyponatremia-improved, ambulatory dysfunction with fall, generalized weakness, hypertension, type 2 diabetes Discharge Exam Sitting on a chair without any acute distress Constitutional well developed, well nourished, + ill appearing and + obese Eyes PERRL, conjunctivae normal, anicteric sclerae ENMT external ear and nose normal, oropharynx normal Neck trachea midline, no thyromegaly Respiratory no respiratory distress Auscultation: lungs clear to auscultation bilaterally Cardiovascular Rate/Rhythm: regular rate and regular rhythm; not tachycardic Heart Sounds: normal S1 and normal S2; no murmur Extremities: + edema (Trace edema bilaterally) Gastrointestinal (Abdomen) Inspection/Auscultation: normal bowel sounds; abdomen not distended Percussion/Palpation: + abdomen tender Neurologic normal touch/pain/proprioception and moves all extremities; no focal motor deficits Psychiatric A+Ox3, euthymic affect Lymphatic no cervical or axillary lymphadenopathy Discharge Data 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 propoxyphene AdvReac Intermediate GI UPSET, Verified 10/20/22 23:42 "DISORIENTED" amoxicillin AdvReac Mild VOMITING, Verified 10/20/22 23:42 GI UPSET baclofen AdvReac Mild disoriented Verified 10/20/22 23:42 nausea capsaicin [Diclopak] AdvReac Mild disoriented Verified 10/20/22 23:42 nausea clavulanic acid AdvReac Mild VOMITING, Verified 10/20/22 23:42 GI UPSET diclofenac [Diclopak] AdvReac Mild disoriented Verified 10/20/22 23:42 nausea Diclopak AdvReac Mild disoriented Verified 06/22/16 00:52 nausea codeine AdvReac Unknown pruritis Verified 10/20/22 23:44 Consultations 10/20/22 23:22 ED Decision to Admit Stat 10/21/22 01:30 Consult Nephrology Routine 10/22/22 12:07 Consult Pain Management Routine Ordered Studies 10/20/22 21:07 CT cervical spine wo con Stat CT head/brain wo con Stat CT thoracic spine wo con Stat Hospital Course (1) Acute hyponatremia: Plan 76-year-old lady with PMH of CAD s/p stent, PVD, CVA, HTN, HLD, T2DM, hypothyroidism, chronic hyponatremia, chronic anemia [baseline hemoglobin around 11], GERD, mood disorder, past tobacco abuse who was recently prescribed Lasix 3 weeks ago [employer] for lower extremity edema [improved leg swelling at present ation] and who underwent outpatient right carpal tunnel surgery 1 week ago [employer] presented to the ED 10/20 with poor appetite since about the surgery time complicated with fall on the day of arrival, denies vertigo or funny sensation in the heart or palpitation or nausea or warmth just prior to fall. She is being managed for the following: Acute on chronic hyponatremia Likely SIADH Patient presents with fall and found to be hyponatremic with Na of 114 at presentation. Urine osmolality 428 and urine sodium 41, likely SIADH Has history of hyponatremia [outpatient chart review with sodium level of 127 in September and October of 2021; it was low normal prior to that] complicated by poor appetite/tramadol/trileptal (dose was recently increased from 300 to 450 around the hand Sx time per pt). Of note, pt follows pain Mx and is on trileptal and topamax for about a year for neuropathic pain; Trileptal dose was increased recently. Trileptal contributes to SIADH and topamax contributes to anorexia; will consult pain management for recs for alternatives -------> Pain Mx evaled: continue holding trileptal/cw home topamax/ cw hydrocodone 5/325 q6h prn Sodium level improving, pt reports somewhat improving appetite. Nephrology on board, No IV fluids/fluid restriction of 1.5 L per day, on urea and lasix. Encourage diet/increase protein intake. Home lisinopril on hold. Hold home tramadol, use Vicodin instead for severe pain. DC home trileptal. Appreciate nephrology input and recommendation Has been on urea, Lasix 10 mg IV twice daily and potassium supplement with fluid restriction Sodium level has been improving which is 132 as of 10/25/2022 We will continue current management and monitor PRP Her sodium level has gone up to 133 with slight increase in BUN and creatinine at 74/1.48 Medications have been adjusted to control hyponatremia Sodium level has gone up to 134 and remains clinically stable We will discontinue urea and she has been taking extra salt with meals Sodium level has been normalized at 140 and creatinine is improved to 1.23 She will be discharged this afternoon Carpal tunnel syndrome Status post surgery about 2 weeks ago Discussed with the surgeon and the sutures can be taken out Water to remove sutures was placed and discussed with the patient Status post removal of the sutures No acute symptoms Fall Generalized weakness Ambulatory dysfunction From advanced age, complicated with recent carpal tunnel surgery, hyponatremia and poor appetite. Patient uses walker PT/OT, fall precaution-await recommendation May need to go to rehab for short-term Awaiting placement has been getting physical therapy Likely to be discharged on Sunday/Sunday Has been getting physical therapy and doing much better We will continue PT OT following discharge Other chronic medical conditions: Resume/continue with home meds as able CAD status post stent PVD, patient follows with [facility] vascular surgery history of CVA hypertension, c/w home meds as able. -Remains stable hyperlipidemia on statin Rx DM2 diet-controlled, well-controlled as of recent hemoglobin A1c of 5.9 last September 2022 hypothyroidism, euthyroid as of this admission's TSH chronic anemia, hemoglobin at baseline mood disorder, stable past tobacco abuse DVT prophylaxis: Hep SC Full code Dispo: pending nephro clearance, to rehab. Patient son Mr. Miguel Bustillo, contact #[phone]. Will be discharged this afternoon to [facility] Total Time Total Time Spent Total Time Spent (In Minutes): 35 minutes Discharge Plan Discharge Items Patient Disposition: Transfer Nursing Home Fac Reason For Visit: HYPONATREMIA Discharge Diagnosis: Acute on chronic hyponatremia-improved, ambulatory dysfunction with fall, g eneralized weakness, hypertension, type 2 diabetes Condition on Discharge: Good Activity: As commented below Activity Comment: Continue PT and OT Non-emergency contact: Primary Care Provider Call non-emergency contact if: you have any medication questions and your symptoms worsen Follow-up/Referrals: Naty Fang, DO [Primary Care Provider] - (Please make an appointment with your PCP within 1 week following discharge from the facility) Diet: Carb Consistent or DM2 Fluids: 1500ml (6 cups) Diet Comment: Try to have a little bit extra salt with meals Addtl Attending Provider Instructions: Please take precautions to avoid falls Take your medications as advised Please make an appointment with nephrology Dr. Gray in about 3 to 4 weeks Pending Studies at Discharge: No Stand-Alone Forms: My [facility] Skilled Items Patient informed of condition?: Yes DNR: No Discharge Level of Care: Skilled Communicable Disease: No Discharge Prognosis: Stable Lines: None Urinary Catheter: No Medications and DC Order Prescriptions: New furosemide 20 mg Tablet 20 mg PO QAM Qty: 30 0RF potassium chloride 10 mEq Tablet,Er Particles/Crystals 10 meq PO QAM Qty: 30 0RF Continued metformin 500 mg Tablet 500 mg PO QDB ezetimibe 10 mg Tablet 10 mg PO QAM amlodipine 2.5 mg Tablet 2.5 mg PO HS omeprazole 40 mg Capsule,Delayed Release(Dr/Ec) 40 mg PO DAILYBB Rx Instructions: 1 hour before breakfast pentoxifylline 400 mg tablet extended release 400 mg PO [facility] atorvastatin 80 mg Tablet 80 mg PO DAILY hydrocodone-acetaminophen 5-325 mg Tablet 1 tab PO Q6H PRN (Reason: pain,mild or severe) aspirin 81 mg Tablet,Delayed Release (Dr/Ec) 81 mg PO DAILY metoprolol succinate 25 mg Tablet Extended Release 24 Hr 25 mg PO DAILY ondansetron 4 mg tablet,disintegrating 4 mg PO Q8 PRN (Reason: Nausea) topiramate 100 mg Tablet 100 mg PO QID levothyroxine 112 mcg Tablet 112 mcg PO DAILYBB cholecalciferol (vitamin D3) [Vitamin D3] 25 mcg (1,000 unit) Tablet 25 mcg PO DAILY icosapent ethyl 1 gram Capsule 2 g PO BIDM magnesium oxide 400 mg magnesium Tablet 400 mg PO QAM acetaminophen 325 mg Tablet 650 mg PO Q6 PRN (Reason: pain,mild) valacyclovir 1 gram Tablet 1,000 mg PO Q12H PRN (Reason: Cold Sores) mupirocin 2 % Ointment 1 applic TOPICAL TID PRN (Reason: when flaring) Rx Instructions: apply to new and resolving acne like spots when flaring until resolved pyridoxine (vitamin B6) [Vitamin B-6] 250 mg Tablet 250 mg PO DAILY Discontinued lisinopril 20 mg Tablet 40 mg PO QAM tramadol 50 mg tablet 50 mg PO Q6 PRN (Reason: pain,moderate) oxcarbazepine 300 mg Tablet 300 mg PO AMHS oxcarbazepine 150 mg Tablet 150 mg PO [facility] furosemide 20 mg Tablet 20 mg PO UD Rx Instructions: take 2 tablets in the morning and 1 tablet at least 4 hours later Discharge Orders: Discharge Order (Routine); Ordered 10/30/22 Ordered By: Peña Dennis/Other Patient Handouts: Managing Type 2 Diabetes, Diabetes: Meal Planning Admission Data Admit Date/Time: 10/21/22 00:06 Attending Provider: Peña Mulligan Admit Provider: Romero Canela Primary Care Provider: Naty Fang Other Providers: Romero Canela ; Eileen Anderson ; Gwyn Dc ; India Prince ; Gino Sloan ; Zachary Francis ; Wendy Sanabria ; Jem Mcneil ; [facility] ; Fredy King Other Interventions: Discharge Summary Assessment (RN) Last Done: 10/30/22 13:11
== END 2022-10-30 14:17 | DRG 645 ==
LOC: ED 20:10 → SUATTDRO 10-21 00:06 → 2N 10-21 00:06

== ENCOUNTER 2022-12-14 08:55 | Inpatient (IN) ==
[2022-12-14] MEDS ORDERED: SODIUM CHLORIDE 0.9% 500 ML IV SCH (09:00)
--- NOTE | 2022-12-14 09:09 | Emergency Department Note ---
Impression & Plan Fall, Rhabdomyolysis, Elevated troponin I level, Contusion of face, Facial swelling ED Provider Note NAME: STEPH OTOOLE AGE: 77 SEX: F : 1945 ARRIVES VIA: Ambulance INFORMANT: Patient, ED PROVIDER(S): Alec Reardon DO CHIEF COMPLAINT: Fall the patient is a 77-year-old female who lives at home alone who fell yesterday at approximately 3 PM. The patient states that she was unable to get to her phone or her life alert HPI: Button. She laid on the floor until this morning when she was able to get to the life alert bracelet. The patient states that when she fell she fell mostly onto her left side. She had to pull herself across rug. She has significant swelling on the left side of her face but also has left shoulder and left elbow pain. She denies having any back pain or abdominal pain. She denies having any hip pain. The patient states that she tripped while trying to use her walker. She denies having any syncope. ROS: See above HPI for pertinent positives & negatives. A total of 10 systems reviewed and were otherwise negative. PAST MEDICAL HISTORY: See Below PAST SURGICAL HISTORY: See Below FAMILY HISTORY: See Below SOCIAL HISTORY: See Below HOME MEDICATIONS: See Below ALLERGIES: See Below VITALS: See Below PHYSICAL EXAMINATION: GENERAL: The patient is awake and alert. She is somewhat anxious appearing. EYES: The conjunctivae are clear. The pupils are round and reactive. EARS, NOSE, MOUTH AND THROAT: The nose is without any evidence of any deformity. There is significant swelling on the left side of the face. There is also an abrasion noted to the left cheek. NECK: The neck is nontender and supple. RESPIRATORY: Normal respiratory effort is noted there is no evidence of wheezing rhonchi or rales CARDIOVASCULAR: Regular rate and rhythm noted there no murmurs rubs or gallops normal S1 normal S2. GASTROINTESTINAL: The abdomen is soft. Abdomen is nontender. BACK: No midline tenderness or or step-off noted range of motion in flexion extension as well as rotation no signs of muscle spasm noted MUSCULOSKELETAL/EXTREMITIES: There is pain with range of motion testing of both hips as well as the left shoulder and left elbow. There is no obvious deformity or crepitus appreciated. SKIN: Pedal edema was noted bilaterally. NEUROLOGIC: Patient is awake alert and oriented x3. Strength is symmetric but diminished bilaterally. MEDICAL DECISION MAKING: The patient is a 77-year-old female who presented to the emergency department after a fall. The patient fell onto her left side yesterday but she was unable to get off the floor. She had signs of pressure injury to the face. She also had signs of rhabdomyolysis on laboratory studies. The patient was treated with IV fluids in the emergency department. She was reevaluated multiple times. I discussed the patient's laboratory and radiographic studies with her. Given her findings as well as her physical state in the emergency department I did feel the patient would be a better candidate for inpatient management. For this reason I discussed her case with the on-call [facility]ist. They have agreed to evaluate the patient in the emergency department for further management and disposition. Triage Nursing notes reviewed. Prior medical records reviewed Vital Signs: reviewed and remarkable for elevated blood pressure. Differential diagnosis: Infection, dehydration, metabolic abnormality, hypo/hyperglycemia, electrolyte disturbance, anemia, hypoxia, cardiac sources, intracerebral event, toxicologic, neurologic, as well as other pathologies. ER treatment provided: See below Diagnostics interpreted by me: ECG: EKG was obtained in the emergency department. My interpretation is normal sinus rhythm at 78 bpm. There is no ectopy. There is no acute ST segment abnormalities noted. This was compared to a tracing from October 20, 2022. No changes were noted. Cardiac Monitoring: An order was placed for continuous cardiac monitoring. The monitor shows a rate of 82 bpm with sinus rhythm. Laboratory studies: As stated above and show below. Imaging studies: See below. Radiographic imaging was reviewed by myself Consultation(s): I discussed this case with Cecille who is on for the [facility]ist group. Past Med/Surg History Medical History Acute non-ST segment elevation myocardial infarction (11/22/10) Benign hypertension (11/22/10) Carotid artery stenosis (11/22/10) Cerebrovascular disease "old lacunar strokes on imaging" Coronary artery disease (11/22/10) Gastroesophageal reflux disease (11/22/10) History of adenomatous polyp of colon Hyperlipidemia (11/22/10) Hyponatremia Hypothyroidism (11/22/10) Migraine Osteoarthritis Spinal stenosis in cervical region Surgical History Status post coronary artery stent placement Status post hysterectomy Social History Smoking Status: Former smoker Hx Alcohol Use: No Hx Substance Use: No Preferred Language: Chinese Communication Ability: Effective 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 Beliefs That Will Affect Care: None Current Living Situation: Alone Feels Safe at Home: Yes Assistive Devices: Cane and Walker Allergies 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 HER STEEP TENDER propoxyphene AdvReac Intermediate GI UPSET, Verified 10/20/22 23:42 "DISORIENTED" amoxicillin AdvReac Mild VOMITING, Verified 10/20/22 23:42 GI UPSET baclofen AdvReac Mild disoriented Verified 10/20/22 23:42 nausea capsaicin [D[place]lop[place]] AdvReac Mild disoriented Verified 10/20/22 23:42 nausea clavulanic acid AdvReac Mild VOMITING, Verified 10/20/22 23:42 GI UPSET diclofenac [Diclopak] AdvReac Mild disoriented Verified 10/20/22 23:42 nausea D[place] AdvReac Mild disoriented Verified 06/22/16 00:52 nausea codeine AdvReac Unknown pruritis Verified 10/20/22 23:44 Home Meds Home Medications Medication Instructions Recorded Confirmed amlodipine 2.5 mg tablet 2.5 mg PO PM 10/20/22 12/14/22 aspirin 81 mg tablet,delayed 81 mg PO PM 10/20/22 12/14/22 release atorvastatin 80 mg tablet 80 mg PO PM 10/20/22 12/14/22 ezetimibe 10 mg tablet 10 mg PO QAM 10/20/22 12/14/22 icosapent ethyl 1 gram capsule 2 g PO BIDM 10/20/22 12/14/22 levothyroxine 112 mcg tablet 112 mcg PO DAILYBB 10/20/22 12/14/22 magnesium oxide 400 mg PO BID 10/20/22 12/14/22 metformin 500 mg tablet 500 mg PO QAM 10/20/22 12/14/22 metoprolol succinate 25 mg 25 mg PO QAM 10/20/22 12/14/22 tablet,extended release 24 hr omeprazole 40 mg capsule,delayed 40 mg PO DAILYBB 10/20/22 12/14/22 release topiramate 100 mg tablet See Rx Instructions .Route .COMPLEX 10/20/22 12/14/22 pyridoxine (vitamin B6) 250 mg 250 mg PO .NOON 10/21/22 12/14/22 tablet (Vitamin B-6) apixaban 5 mg tablet (Eliquis) 5 mg PO BID 12/14/22 12/14/22 cholecalciferol (vitamin D3) 125 125 mcg PO .NOON 12/14/22 12/14/22 mcg (5,000 unit) tablet (Vitamin D3) docusate sodium 100 mg capsule 100 mg PO DAILY 12/14/22 12/14/22 (Colace) furosemide 20 mg tablet 20 mg PO .QAM AND NOON 12/14/22 12/14/22 lisinopril 20 mg tablet 20 mg PO QAM 12/14/22 12/14/22 oxcarbazepine 150 mg tablet See Rx Instructions .Route .COMPLEX 12/14/22 12/14/22 (Trileptal) oxcarbazepine 300 mg tablet See Rx Instructions .Route .COMPLEX 12/14/22 12/14/22 (Trileptal) Results & Data (ED) Vital Signs Vital Signs - 24 hr 12/14/22 09:19 12/14/22 09:37 12/14/22 09:42 Temperature 36.6 C Temperature Source Axillary Pulse Rate 80 86 Pulse Rate [Bilateral] Pulse Rhythm Regular Pulse Strength Normal Respiratory Rate 18 Respiratory Effort / Characteristics Non-Labored Respiratory Depth Normal Blood Pressure 146/66 H Blood Pressure [Right Arm] Blood Pressure Mean 92 Blood Pressure Mean [Right Arm] Pulse Oximetry 96 96 Oxygen Delivery Method Nasal Cannula Room Air Sepsis Recent Fever Within 48 Hours No Sepsis New/Unexplained Change in Mental Status No Sepsis Action Taken by Nursing No Action Required 12/14/22 12:08 Temperature Temperature Source Pulse Rate Pulse Rate [Bilateral] 82 Pulse Rhythm Pulse Strength Respiratory Rate 18 Respiratory Effort / Characteristics Respiratory Depth Blood Pressure Blood Pressure [Right Arm] 152/78 H Blood Pressure Mean Blood Pressure Mean [Right Arm] 102 Pulse Oximetry 98 Oxygen Delivery Method Room Air Sepsis Recent Fever Within 48 Hours Sepsis New/Unexplained Change in Mental Status Sepsis Action Taken by [facility] Medications Current Medication List: was personally reviewed by me Laboratory Data Attestation: I reviewed the patient's lab results. 12/14/22 09:53 12/14/22 09:53 Lab Results 12/14/22 12/14/22 12/14/22 Range/Units 09:53 09:53 09:53 WBC 15.51 H (4.8-10.8) K/ul RBC 3.48 L (4.20-5.40) M/uL Hgb 10.9 L (12.0-16.0) g/dl Hct 31.0 L (37.0-47.0) % MCV 89.1 (80.0-100.0) fL MCH 31.3 (25.0-34.0) pg MCHC 35.2 (32.0-36.0) g/dL RDW Std Deviation 40.4 (36.4-46.3) fL RDW Coeff of Mine 12.4 (11.5-14.5) % Plt Count 227 (130-400) K/uL MPV 10.5 (9.4-12.4) fL Immature Gran % (Auto) 0.4 % Neut % (Auto) 86.4 % Lymph % (Auto) 7.0 % [place] % (Auto) 5.8 % Eos % (Auto) 0.1 % Baso % (Auto) 0.3 % Neut # (Auto) 13.41 H (1.40-6.50) K/uL Lymph # (Auto) 1.09 L (1.2-3.4) K/uL [place] # (Auto) 0.90 H (0.11-0.59) K/uL Eos # (Auto) 0.01 (0-0.50) K/uL Baso # (Auto) 0.04 (0-0.2) K/uL Immature Gran # (Auto) 0.06 (0.01-0.20) K/uL PT 11.2 (9.0-12.0) Seconds INR 1.0 (0.9-1.1) APTT 26.9 (21.0-31.0) Seconds PTT Ratio 1.0 Sodium 128 L (136-145) mmol/L Potassium 4.8 (3.5-5.1) mmol/L Chloride 99 (98-107) mmol/L Carbon Dioxide 22 (21-32) mmol/L Anion Gap 7 (3-11) BUN 35 H (6-23) mg/dl Creatinine 1.98 H (0.6-1.2) mg/dl Est Cr Clr Drug Dosing 20.2 ml/min Est GFR ( Amer) 27.4 ml/min Est GFR (Non-Af Amer) 23.6 ml/min BUN/Creatinine Ratio 17.7 (10-20) Glucose 101 H (70-99(Fasting)) mg/dl Calcium 10.0 (8.6-10.3) mg/dl Magnesium 1.8 (1.7-2.4) mg/dl Total Bilirubin 0.5 (0.2-1.0) mg/dl AST 157 H (13-39) U/L ALT 57 H (7-52) U/L Alkaline Phosphatase 59 (34-104) U/L Total Creatine Kinase 3906 H (26-192) U/L Troponin I High Sens 1038.4 H* (0-14) pg/ml Total Protein 6.2 (6.0-8.3) gm/dl Albumin 3.9 (3.4-5.0) gm/dl Globulin 2.3 L (2.5-4.0) gm/dl Albumin/Globulin Ratio 1.7 (0.9-2) TSH (0.300-4.500) uIu/ml 12/14/22 Range/Units 09:53 WBC (4.8-10.8) K/ul RBC (4.20-5.40) M/uL Hgb (12.0-16.0) g/dl Hct (37.0-47.0) % MCV (80.0-100.0) fL MCH (25.0-34.0) pg MCHC (32.0-36.0) g/dL RDW Std Deviation (36.4-46.3) fL RDW Coeff of Mine (11.5-14.5) % Plt Count (130-400) K/uL MPV (9.4-12.4) fL Immature Gran % (Auto) % Neut % (Auto) % Lymph % (Auto) % [place] % (Auto) % Eos % (Auto) % Baso % (Auto) % Neut # (Auto) (1.40-6.50) K/uL Lymph # (Auto) (1.2-3.4) K/uL [place] # (Auto) (0.11-0.59) K/uL Eos # (Auto) (0-0.50) K/uL Baso # (Auto) (0-0.2) K/uL Immature Gran # (Auto) (0.01-0.20) K/uL PT (9.0-12.0) Seconds INR (0.9-1.1) APTT (21.0-31.0) Seconds PTT Ratio Sodium (136-145) mmol/L Potassium (3.5-5.1) mmol/L Chloride (98-107) mmol/L Carbon Dioxide (21-32) mmol/L Anion Gap (3-11) BUN (6-23) mg/dl Creatinine (0.6-1.2) mg/dl Est Cr Clr Drug Dosing ml/min Est GFR ( Amer) ml/min Est GFR (Non-Af Amer) ml/min BUN/Creatinine Ratio (10-20) Glucose (70-99(Fasting)) mg/dl Calcium (8.6-10.3) mg/dl Magnesium (1.7-2.4) mg/dl Total Bilirubin (0.2-1.0) mg/dl AST (13-39) U/L ALT (7-52) U/L Alkaline Phosphatase (34-104) U/L Total Creatine Kinase (26-192) U/L Troponin I High Sens (0-14) pg/ml Total Protein (6.0-8.3) gm/dl Albumin (3.4-5.0) gm/dl Globulin (2.5-4.0) gm/dl Albumin/Globulin Ratio (0.9-2) TSH 0.823 (0.300-4.500) uIu/ml Administered Medications Discontinued Medications Sodium Chloride (Nss) 500 mls @ 999 mls/hr IV .Q31M DAJA Stop: 12/14/22 09:30 Last Infusion: 12/14/22 11:58 Dose: 0 mls/hr Documented By: Admin: 12/14/22 10:06 Dose: 999 mls/hr Documented By: HERMILO Sodium Chloride (Nss 1000ml) 1,000 mls @ 999 mls/hr IV .Q1H1M ONE Stop: 12/14/22 12:21 Last Infusion: 12/14/22 13:28 Dose: 0 mls/hr Documented By: Admin: 12/14/22 12:00 Dose: 999 mls/hr Documented By: GIACOMO Imaging Data Attestation: I personally reviewed and interpreted this imaging study as follows: My Impression: CT of the brain was obtained in the emergency department. My interpretation is no intracranial hemorrhage or mass effect, final report below. 1 view chest x-ray was obtained in the emergency department. My interpretation is no free air or definite infiltrate, final report below. Radiologist's Impression: Cervical Spine CT 12/14/22 08:58 CT cervical spine wo con CLINICAL HISTORY: fall TECHNIQUE: Multidetector row helical CT of the cervical spine was performed without administration of intravenous contrast. Coronal and sagittal reformations were obtained. Automated dose lowering techniques and/or adjustment according to patient size were utilized for this exam. Comparison: Comparison is made to CT cervical spine 10/20/2022 FINDINGS: No acute fractures or subluxations are identified. Degenerative changes are seen in the visualized spine. Posterior fixation hardware is seen. The alignment is normal. Soft tissues are unremarkable. IMPRESSION: Degenerative changes without evidence of acute bony injury. ACT 112: Negative or not required by law. Electronically signed by: Valeriy Montoya M.D. 12/14/2022 10:59 AM Chest X-Ray 12/14/22 08:58 XR chest 1V portable CLINICAL HISTORY: weakness TECHNIQUE: Single frontal radiograph of the chest was obtained. Comparison: Comparison is made to chest radiograph 10/20/2022 FINDINGS: Cervical and lumbar fixation hardware partially visualized. Calcified aortic knob is seen. The lungs are clear. No evidence of pleural effusion or pneumothorax. IMPRESSION: No acute chest disease. ACT 112: Negative or not required by law. Electronically signed by: Valeriy Montoya M.D. 12/14/2022 9:28 AM Elbow X-Ray 12/14/22 08:58 XR elbow LT min 3V routine CLINICAL HISTORY: fall TECHNIQUE: 3 views of the left elbow were obtained. Comparison: None available at the time of this dictation. FINDINGS: There is no evidence of an acute fracture. Enthesophyte formation is noted. There is no prominence of the anterior or posterior fat pads to suggest an effusion. No soft tissue abnormality is seen. IMPRESSION: No evidence of acute osseous injury. ACT 112: Negative or not required by law. Electronically signed by: Valeriy Montoya M.D. 12/14/2022 9:[address] 12/14/22 08:58 CT SCAN OF THE FACIAL BONES WITHOUT IV CONTRAST CLINICAL HISTORY: Fall. Facial abrasions. COMPARISON STUDY: No priors. TECHNIQUE: High-resolution CT scan of the facial bones is performed. Images are reviewed in the axial, sagittal, and coronal planes. IV contrast was not administered for this examination. A dose lowering technique was utilized adhering to the principles of ALARA. FINDINGS: The skeletal structures are osteopenia. There is no evidence of facial bone fracture. The bony orbits are intact and the orbital contents are within normal limits noting bilateral ocular lens implant. The zygomatic arches, nasal bones, and pterygoid plates are preserved. The maxilla and mandible are intact. The patient is edentulous. Degenerative change is noted in the temporomandibular joints. There are no layering blood products within the paranasal sinuses. There is trace mucosal thickening within the maxillary antra. The remaining para nasal sinuses are clear. The mastoid air cells are well pneumatized. The visualized calvarium and upper cervical spine are maintained. Fusion hardware is partially visualized in the cervical spine. Partially imaged brain parenchyma is within normal limits. There is atherosclerotic calcification of the carotid bulbs. There frontal and left periorbital soft tissue contusions. IMPRESSION: There is no evidence of facial bone fracture. ACT 112: Negative or not required by law. Electronically signed by: Manoj Burns M.D. 12/14/2022 11:[address] 12/14/22 08:[address] DOSE: HISTORY: fall TECHNIQUE: Multiaxial CT images of the head were performed without the use of intravenous contrast. Automated exposure control was utilized for this study. A dose lowering technique was utilized adhering to the principles of ALARA. Comparison: Head CT 10/20/2022. Findings: The paranasal sinuses and mastoid air cells are clear. The calvarium and skull base are intact. There is no mass, hematoma, midline shift, acute infarct. White matter hypodensity is nonspecific but suggestive of microvascular ischemic change. The ventricles and sulci demonstrate mild age-related involutional changes. Mild left frontal scalp and left facial soft tissue swelling. Impression: No acute intracranial abnormality. Mild left frontal scalp and left facial soft tissue swelling. ACT 112: Negative or not required by law. Electronically signed by: Srini Serna M.D. 12/14/2022 11:03 AM Pelvis X-Ray 12/14/22 08:58 XR pelvis 1-2V routine CLINICAL HISTORY: fall TECHNIQUE: A single frontal view of the pelvis was obtained. Comparison: Comparison is made to CT abdomen pelvis 09/13/2014 FINDINGS: Posterior fixation hardware is seen in the lumbar spine. Degenerative changes are seen in the hip joints and lumbar spine. Vascular calcifications are noted. IMPRESSION: No evidence of acute osseous injury. ACT 112: Negative or not required by law. Electronically signed by: Valeriy Montoya M.D. 12/14/2022 9:31 AM Shoulder X-Ray 12/14/22 08:58 XR shoulder LT min 2V routine CLINICAL HISTORY: fall TECHNIQUE: 3 views of the left shoulder were obtained. Comparison: None available at the time of this dictation. FINDINGS: There is no evidence of an acute fracture. Joint spaces are well-preserved. The overlying soft tissues are unremarkable. The visualized portions of the lungs are clear. IMPRESSION: No evidence of acute osseous injury. ACT 112: Negative or not required by law. Electronically signed by: Valeriy Montoya M.D. 12/14/2022 9:29 AM Hip X-Ray 12/14/22 09:06 LEFT HIP 2 VIEWS CLINICAL HISTORY: Fall. Left hip pain. FINDINGS: AP and frog leg views of the left hip are compared to pelvic x-ray performed the same day 12/14/2022 and correlated with pelvic CT dated 09/13/2014. The skeletal structures are osteopenic. There is no radiographic evidence of acute fracture involving the left hip or the visualized left hemipelvis. Minimal degenerative change is seen in the left hip. Fusion hardware is partially visualized at the lumbosacral junction. The overlying soft tissues are within normal limits. There is atherosclerotic calcification of the left femoral artery. IMPRESSION: There is no radiographic evidence of acute fracture. Electronically signed by: Manoj Burns M.D. 12/14/2022 9:55 AM Hip X-Ray 12/14/22 09:37 XR hip RT min 2V CLINICAL HISTORY: PAIN S/P FALL TECHNIQUE: 2 views of the right hip were obtained. Comparison: Comparison is made to pelvis radiograph 12/14/2022 FINDINGS: There is no evidence of an acute fracture. Degenerative changes are seen in the hip joint. Partial visualization of lumbar fixation hardware Vascular calcifications are noted. IMPRESSION: No evidence of acute osseous injury. ACT 112: Negative or not required by law. Electronically signed by: Valeriy Montoya M.D. 12/14/2022 9:57 AM Discharge Plan Visit Data Chief Complaint: Fall Stated Complaint: FALL, L SHOULDER & ARM PAIN, EDEMA L SIDE FACE ED Provider: Alec Reardon Discharge Problem: Fall, Rhabdomyolysis, Elevated troponin I level, Contusion of face, Facial swelling Patient Disposition: Being Evaluated by Hospitalist Forms Stand Alone Forms: My [facility] Prescriptions Prescriptions: No Action metformin 500 mg Tablet 500 mg PO QAM ezetimibe 10 mg Tablet 10 mg PO QAM amlodipine 2.5 mg Tablet 2.5 mg PO PM omeprazole 40 mg Capsule,Delayed Release(Dr/Ec) 40 mg PO DAILYBB Rx Instructions: 1 hour before breakfast atorvastatin 80 mg Tablet 80 mg PO PM aspirin 81 mg Tablet,Delayed Release (Dr/Ec) 81 mg PO PM metoprolol succinate 25 mg Tablet Extended Release 24 Hr 25 mg PO QAM topiramate 100 mg Tablet See Rx Instructions .ROUTE .COMPLEX Rx Instructions: Take 100mg by mouth in the morning, 100mg by mouth at noon and 200mg by mouth at bedtime levothyroxine 112 mcg Tablet 112 mcg PO DAILYBB icosapent ethyl 1 gram Capsule 2 g PO BIDM magnesium oxide 400 mg magnesium Tablet 400 mg PO BID pyridoxine (vitamin B6) [Vitamin B-6] 250 mg Tablet 250 mg PO .NOON oxcarbazepine [Trileptal] 150 mg Tablet See Rx Instructions .ROUTE .COMPLEX Rx Instructions: Take 150mg by mouth with 300mg tablet to equal 450mg twice daily lisinopril 20 mg Tablet 20 mg PO QAM oxcarbazepine [Trileptal] 300 mg Tablet See Rx Instructions .ROUTE .COMPLEX Rx Instructions: Take 300mg by mouth with 150mg tablet to equal 450mg twice daily docusate sodium [Colace] 100 mg Capsule 100 mg PO DAILY cholecalciferol (vitamin D3) [Vitamin D3] 125 mcg (5,000 unit) Tablet 125 mcg PO .NOON Eliquis 5 mg tablet 5 mg PO BID furosemide 20 mg tablet 20 mg PO .QAM AND NOON Referrals Referrals: Naty Fang DO [Primary Care Provider] - Fall Qualifiers: Encounter type: initial encounter Qualified Code(s): W19.XXXA - Unspecified fall, initial encounter Rhabdomyolysis Qualifiers: Rhabdomyolysis type: non-traumatic Qualified Code(s): M62.82 - Rhabdomyolysis Contusion of face Qualifiers: Encounter type: initial encounter Qualified Code(s): S00.83XA - Contusion of other part of head, initial encounter
--- NOTE | 2022-12-14 09:30 | XRay Report ---
XR shoulder LT min 2V routine CLINICAL HISTORY: fall TECHNIQUE: 3 views of the left shoulder were obtained. Comparison: None available at the time of this dictation. FINDINGS: There is no evidence of an acute fracture. Joint spaces are well-preserved. The overlying soft tissue s are unremarkable. The visualized portions of the lungs are clear. IMPRESSION: No evidence of acute osseous injury. ACT 112: Negative or not required by law. Electronically signed by: Valeriy Montoya M.D. 12/14/2022 9:29 AM
--- NOTE | 2022-12-14 09:30 | XRay Report ---
XR chest 1V portable CLINICAL HISTORY: weakness TECHNIQUE: Single frontal radiograph of the chest was obtained. Comparison: Comparison is made to chest radiograph 10/20/2022 FINDINGS: Cervical and lumbar fixation hardware partially visualized. Calcified aortic knob is seen. The lungs are clear. No evidence of pleural effusion or pneumothorax. IMPRESSION: No acute chest disease. ACT 112: Negative or not required by law. Electronically signed by: Valeriy Montoya M.D. 12/14/2022 9:28 AM
--- NOTE | 2022-12-14 09:32 | XRay Report ---
XR elbow LT min 3V routine CLINICAL HISTORY: fall TECHNIQUE: 3 views of the left elbow were obtained. Comparison: None available at the time of this dictation. FINDINGS: There is no evidence of an acute fracture. Enthesophyte formation is noted. There is no prominence of the anterior or posterior fat pads to suggest an effusion. No soft tissue abnormality is seen. IMPRESSION: No evidence of acute osseous injury. ACT 112: Negative or not required by law. Electronically signed by: Valeriy Montoya M.D. 12/14/2022 9:30 AM
--- NOTE | 2022-12-14 09:33 | XRay Report ---
XR pelvis 1-2V routine CLINICAL HISTORY: fall TECHNIQUE: A single frontal view of the pelvis was obtained. Comparison: Comparison is made to CT abdomen pelvis 09/13/2014 FINDINGS: Posterior fixation hardware is seen in the lumbar spine. Degenerative changes are seen in the hip clark nts and lumbar spine. Vascular calcifications are noted. IMPRESSION: No evidence of acute osseous injury. ACT 112: Negative or not required by law. Electronically signed by: Valeriy Montoya M.D. 12/14/2022 9:31 AM
--- NOTE | 2022-12-14 09:56 | XRay Report ---
LEFT HIP 2 VIEWS CLINICAL HISTORY: Fall. Left hip pain. FINDINGS: AP and frog leg views of the left hip are compared to pelvic x-ray performed the same day and correlated with pelvic CT dated 09/13/2014. The skeletal structures are osteopenic. There is no radiographic evidence of acute fracture involving the left hip or the visualized left hemipelv is. Minimal degenerative change is seen in the left hip. Fusion hardware is partially visualized at t he lumbosacral junction. The overlying soft tissues are within normal limits. There is atheroscleroti c calcification of the left femoral artery. IMPRESSION: There is no radiographic evidence of acute fracture. Electronically signed by: Manoj Burns M.D. 12/14/2022 9:55 AM
--- NOTE | 2022-12-14 09:59 | XRay Report ---
XR hip RT min 2V CLINICAL HISTORY: PAIN S/P FALL TECHNIQUE: 2 views of the right hip were obtained. Comparison: Comparison is made to pelvis radiograph 12/14/2022 FINDINGS: There is no evidence of an acute fracture. Degenerative changes are seen in the hip joint. Partial vi sualization of lumbar fixation hardware Vascular calcifications are noted. IMPRESSION: No evidence of acute osseous injury. ACT 112: Negative or not required by law. Electronically signed by: Valeriy Montoya M.D. 12/14/2022 9:57 AM
[2022-12-14 10:11] LABS: Basophils # (auto) 0.04 K/uL (0-0.2); Basophils % (auto) 0.3 %; Eosinophils # (auto) 0.01 K/uL (0-0.50); Eosinophils % (auto) 0.1 %; Hemoglobin 10.9 g/dl (12.0-16.0); Immature Granulocytes # (auto) 0.06 K/uL (0.01-0.20); Immature Granulocytes % (auto) 0.4 %; Lymphocytes # (auto) 1.09 K/uL (1.2-3.4); Mean Corpuscular Hemoglobin 31.3 pg (25.0-34.0); Mean Corpuscular Hgb Conc 35.2 g/dL (32.0-36.0); Mean Corpuscular Volume 89.1 fL (80.0-100.0); Mean Platelet Volume 10.5 fL (9.4-12.4); Monocytes % (auto) 5.8 %; Neutrophils # (auto) 13.41 K/uL (1.40-6.50); Neutrophils % (auto) 86.4 %; Platelet Count 227 K/uL (130-400); RDW Coefficient of Variation 12.4 % (11.5-14.5); RDW Standard Deviation 40.4 fL (36.4-46.3); Red Blood Count 3.48 M/uL (4.20-5.40); White Blood Count 15.51 K/ul (4.8-10.8)
[2022-12-14 10:29] LABS: BUN Creatinine Ratio 17.7 (10-20); Creatinine Clr Calc Pharmacy 20.2 ml/min; Est GFR (African American) 27.4 ml/min; Est GFR (Non-African American) 23.6 ml/min; Potassium 4.8 mmol/L (3.5-5.1)
[2022-12-14 10:45] LABS: Albumin Globulin Ratio 1.7 (0.9-2); Albumin Level 3.9 gm/dl (3.4-5.0); Bilirubin,Total 0.5 mg/dl (0.2-1.0); Globulin 2.3 gm/dl (2.5-4.0); Magnesium 1.8 mg/dl (1.7-2.4); Partial Thromboplastin Time 26.9 Seconds (21.0-31.0); Prothrombin Time 11.2 Seconds (9.0-12.0); Total Protein 6.2 gm/dl (6.0-8.3)
[2022-12-14 11:00] LABS: Troponin I High Sensitivity 1038.4 pg/ml (0-14)
--- NOTE | 2022-12-14 11:00 | CT Scan Report ---
CT cervical spine wo con CLINICAL HISTORY: fall TECHNIQUE: Multidetector row helical CT of the cervical spine was performed without administration of intravenous contrast. Coronal and sagittal reformations were obtained. Automated dose lowering techn iques and/or adjustment according to patient size were utilized for this exam. Comparison: Comparison is made to CT cervical spine 10/20/2022 FINDINGS: No acute fractures or subluxations are identified. Degenerative changes are seen in the visualized sp ine. Posterior fixation hardware is seen. The alignment is normal. Soft tissues are unremarkable. IMPRESSION: Degenerative changes without evidence of acute bony injury. ACT 112: Negative or not required by law. Electronically signed by: Valeriy Montoya M.D. 12/14/2022 10:59 AM
--- NOTE | 2022-12-14 11:05 | CT Scan Report ---
HEAD CT NONCONTRAST CT DOSE: HISTORY: fall TECHNIQUE: Multiaxial CT images of the head were performed without the use of intravenous contrast. A utomated exposure control was utilized for this study. A dose lowering technique was utilized adheri ng to the principles of ALARA. Comparison: Head CT 10/20/2022. Findings: The paranasal sinuses and mastoid air cells are clear. The calvarium and skull base are int act. There is no mass, hematoma, midline shift, acute infarct. White matter hypodensity is nonspecifi c but suggestive of microvascular ischemic change. The ventricles and sulci demonstrate mild age-rela checo involutional changes. Mild left frontal scalp and left facial soft tissue swelling. Impression: No acute intracranial abnormality. Mild left frontal scalp and left facial soft tissue swelling. ACT 112: Negative or not required by law. Electronically signed by: Srini Serna M.D. 12/14/2022 11:03 AM
--- NOTE | 2022-12-14 11:15 | Electrocardiogram Report ---
Test Reason : Blood Pressure : / mmHG Vent. Rate : 078 BPM Atrial Rate : 078 BPM P-R Int : 152 ms QRS Dur : 098 ms QT Int : 386 ms P-R-T Axes : 059 034 039 degrees QTc Int : 440 ms Normal sinus rhythm Normal ECG Confirmed by Darion Bell ([id number]) on 12/14/2022 11:14:51 AM Referred By: REFERRED SELF Confirmed By:Johnnie Bell
--- NOTE | 2022-12-14 11:19 | CT Scan Report ---
CT SCAN OF THE FACIAL BONES WITHOUT IV CONTRAST CLINICAL HISTORY: Fall. Facial abrasions. COMPARISON STUDY: No priors. TECHNIQUE: High-resolution CT scan of the facial bones is performed. Images are reviewed in the axia l, sagittal, and coronal planes. IV contrast was not administered for this examination. A dose lower ing technique was utilized adhering to the principles of ALARA. FINDINGS: The skeletal structures are osteopenia. There is no evidence of facial bone fracture. The b lorraine orbits are intact and the orbital contents are within normal limits noting bilateral ocular lens implant. The zygomatic arches, nasal bones, and pterygoid plates are preserved. The maxilla and blair ble are intact. The patient is edentulous. Degenerative change is noted in the temporomandibular join ts. There are no layering blood products within the paranasal sinuses. There is trace mucosal thicken ing within the maxillary antra. The remaining para nasal sinuses are clear. The mastoid air cells are well pneumatized. The visualized calvarium and upper cervical spine are maintained. Fusion hardware is partially visualized in the cervical spine. Partially imaged brain parenchyma is within normal silva its. There is atherosclerotic calcification of the carotid bulbs. There frontal and left periorbital soft tissue contusions. IMPRESSION: There is no evidence of facial bone fracture. ACT 112: Negative or not required by law. Electronically signed by: Manoj Burns M.D. 12/14/2022 11:16 AM
[2022-12-14] MEDS ORDERED: SODIUM CHLORIDE 0.9% 1000ML 1,000 ML IV ONE (11:21)
[2022-12-14] MEDS ORDERED: ONDANSETRON INJ 2 MG/ML 2 ML VIAL IV PRN (12:20)
[2022-12-14] MEDS ORDERED: POLYETHYLENE (MIRALAX) 17 GM PACK PO PRN (12:20)
--- NOTE | 2022-12-14 12:28 | History & Physical Report ---
Date of Service December 14, 2022 Assessment & Plan (1) Fall: (2) Rhabdomyolysis: (3) Elevated troponin I level: (4) Contusion of face: (5) Facial swelling: (6) Hyponatremia: (7) Hypothyroidism: (8) Hyperlipidemia: (9) Coronary artery disease: (10) Carotid artery stenosis: (11) Status post coronary artery stent placement: Plan 76yoF with PMHx significant for CAD s/p stent, hx of DVT on eliquis, PVD, CVA, HTN, HLD, T2DM, hypothyroidism, chronic hyponatremia, chronic anemia [baseline hemoglobin around 11], GERD, mood disorder, chronic pain and lower extremity edema admitted after a fall at home, and spent many hours on the floor. Fall/Rhabdo/facial contusion and swelling Pt with a mechanical fall at home, states she fell after her sweater got caught in her walker about 3pm yesterday and was found this AM CT head with no acute bleed, pt on Eliquis for a Hx of DVT. Did note scalp and facial tissue swelling. Imaging of the c spine, left elbow, pelvis, shoulder and hip all without fractures. CK elevated to 3906 in the setting of acute on chronic kidney disease (Cr of 1.98 on admission) and hyponatremia with known SIADH (see below) Received 1L of fluids in the ED Trend CK with AM labs Hyponatremia Pt with known Hx of SIADH Sodium level of 128 on admission. urine Na and osmolality pending Received 1L NSS in the ED Will fluid restrict 1.5L with nephro consult for further recommendations in the setting of rhabdomyolysis and ALBERTINA that typically require fluids for treatment. Q6h Na trend ordered Acute on Chronic Kidney Disease Cr acutely elevated to 1.98, was 1.2 about a month ago. Received 1L NSS in ED Will hold off on further fluids in the setting of SIADH as noted above, appreciate nephrology recs Elevated WBC Noted elevated WBC of 15.51 with neutrophilia, ? elevation in setting of rhabdo UA ordered by the ED, currently pending at the time of this writing Chest xray with no signs of infection No visible open wounds except her face, denies diarrhea Empiric rocephin ordered Elevated troponin Troponin elevated to 1038.4, EKG unremarkable Elevation likely in relation to fall in setting of rhabdomyolysis Trend troponin q6h Echo ordered with cardiology consult for further evaluation hx CAD status post stent, hx PVD, patient follows with [facility] vascular surgery, history of CVA Recent DVT Currently prescribed Eliqius and baby aspirin. In setting of fall, Eliquis and aspirin ordered to be resumed tomorrow if she continues to be AAOx3 and no signs of acute intracranial bleed. CT head done on admission with no signs of bleeding at that time. DMII last hgba1c of 10.9 noted in the chart, AM hgba1c ordered. basal with ISS ordered. Lower extremity edema Continue home lasix hypertension continue home amlodipine, lisinopril, metoprolol hyperlipidemia Continue home meds hypothyroidism Continue home levothyroxine chronic anemia hemoglobin at baseline mood disorder stable Chronic Pain On trileptal, continue Headaches On topamax, continue Diet: HH/Fluid restriction 1500ml CODE STATUS: full DVT prophylaxis: On Eliquis and aspirin Dispo: Med/Surg with tele History of Present Illness Chief Complaint: Fall Primary Care Provider: Naty Fang, DO 76yoF with PMHx significant for CAD s/p stent, hx of DVT on eliquis, PVD, CVA, HTN, HLD, T2DM, hypothyroidism, chronic hyponatremia, chronic anemia [baseline hemoglobin around 11], GERD, mood disorder, chronic pain and lower extremity edema admitted after a fall at home. She spent many hours on the floor, noting that this happened about 3 pm yesterday and she was found this morning. She states she kept banging on the floor and the neighbor downstairs went to get the landlord to help open the door. She notes she tried to get to her phone or life alert but could not. She lives alone. She states she fell onto her left side after attempting to put on her sweater wh ile using her walker. Notes that she thinks the sweater got tangled in the walker and she fell. Denies syncope. 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 propoxyphene AdvReac Intermediate GI UPSET, Verified 10/20/22 23:42 "DISORIENTED" amoxicillin AdvReac Mild VOMITING, Verified 10/20/22 23:42 GI UPSET baclofen AdvReac Mild disoriented Verified 10/20/22 23:42 nausea capsaicin [Diclopak] AdvReac Mild disoriented Verified 10/20/22 23:42 nausea clavulanic acid AdvReac Mild VOMITING, Verified 10/20/22 23:42 GI UPSET diclofenac [Diclopak] AdvReac Mild disoriented Verified 10/20/22 23:42 nausea Diclopak AdvReac Mild disoriented Verified 06/22/16 00:52 nausea codeine AdvReac Unknown pruritis Verified 10/20/22 23:44 Home Medications Medication Instructions Recorded Confirmed Type amlodipine 2.5 mg tablet 2.5 mg PO PM 10/20/22 12/14/22 History aspirin 81 mg tablet,delayed 81 mg PO PM 10/20/22 12/14/22 History release atorvastatin 80 mg tablet 80 mg PO PM 10/20/22 12/14/22 History ezetimibe 10 mg tablet 10 mg PO QAM 10/20/22 12/14/22 History icosapent ethyl 1 gram capsule 2 g PO BIDM 10/20/22 12/14/22 History levothyroxine 112 mcg tablet 112 mcg PO DAILYBB 10/20/22 12/14/22 History magnesium oxide 400 mg PO BID 10/20/22 12/14/22 History metformin 500 mg tablet 500 mg PO QAM 10/20/22 12/14/22 History metoprolol succinate 25 mg 25 mg PO QAM 10/20/22 12/14/22 History tablet,extended release 24 hr omeprazole 40 mg capsule,delayed 40 mg PO DAILYBB 10/20/22 12/14/22 History release topiramate 100 mg tablet See Rx Instructions .Route .COMPLEX 10/20/22 12/14/22 History pyridoxine (vitamin B6) 250 mg 250 mg PO .NOON 10/21/22 12/14/22 History tablet (Vitamin B-6) apixaban 5 mg tablet (Eliquis) 5 mg PO BID 12/14/22 12/14/22 History cholecalciferol (vitamin D3) 125 125 mcg PO .NOON 12/14/22 12/14/22 History mcg (5,000 unit) tablet (Vitamin D3) docusate sodium 100 mg capsule 100 mg PO DAILY 12/14/22 12/14/22 History (Colace) furosemide 20 mg tablet 20 mg PO .QAM AND NOON 12/14/22 12/14/22 History lisinopril 20 mg tablet 20 mg PO QAM 12/14/22 12/14/22 History oxcarbazepine 150 mg tablet See Rx Instructions .Route .COMPLEX 12/14/22 12/14/22 History (Trileptal) oxcarbazepine 300 mg tablet See Rx Instructions .Route .COMPLEX 12/14/22 12/14/22 History (Trileptal) Past Med/Surg History Medical History Acute non-ST segment elevation myocardial infarction (11/22/10) Benign hypertension (11/22/10) Carotid artery stenosis (11/22/10) Cerebrovascular disease "old lacunar strokes on imaging" Coronary artery disease (11/22/10) Gastroesophageal reflux disease (11/22/10) History of adenomatous polyp of colon Hyperlipidemia (11/22/10) Hyponatremia Hypothyroidism (11/22/10) Migraine Osteoarthritis Spinal stenosis in cervical region Surgical History Status post coronary artery stent placement Status post hysterectomy Social History Smoking Status: Former smoker Hx Alcohol Use: No Hx Substance Use: No Preferred Language: Setswana Communication Ability: Effective [place] Required: No Beliefs That Will Affect Care: None Current Living Situation: Alone Feels Safe at Home: Yes Assistive Devices: Cane and Walker Review of Systems Review of Systems: All systems reviewed & are unremarkable except as noted in HPI & below Physical Exam Physical Exam: General: Alert, orientedx3. Skin: facial bruising and swelling noted on left face, left elbow with some erythema. Psych: Appropriate mood and affect Neuro: difficulty moving her left arm HEENT: facial bruising and swelling noted on left face CV: RRR, Normal s1, s2. Resp: no increased effort of breathing. Abdomen: Soft, nontender Extremities: Some edema in lower extremities bilaterally. Results & Data Results & Data Vital Signs (Past 12 Hours) Vital Signs Temp Pulse Pulse Resp BP BP Pulse Ox 12/14/22 12:08 82 18 152/78 H 98 12/14/22 09:42 86 12/14/22 09:37 96 12/14/22 09:19 36.6 C 80 18 146/66 H 96 O2 Del Method 12/14/22 12:08 Room Air 12/14/22 09:42 12/14/22 09:37 Room Air 12/14/22 09:19 Nasal Cannula (1) Fall Encounter type: initial encounter Qualified Code(s): W19.XXXA - Unspecified fall, initial encounter (2) Rhabdomyolysis Rhabdomyolysis type: non-traumatic Qualified Code(s): M62.82 - Rhabdomyolysis (4) Contusion of face Encounter type: initial encounter Qualified Code(s): S00.83XA - Contusion of other part of head, initial encounter
[2022-12-14] MEDS ORDERED: OXcarbazepine 150 MG TABLET PO SCH (14:07)
[2022-12-14] MEDS ORDERED: GLUCOSE 10 TAB/TUBE PO PRN (14:07)
[2022-12-14] MEDS ORDERED: CARBOHYDRATES FOR HYPOGLYCEMIA PO PRN (14:07)
[2022-12-14] MEDS ORDERED: DEXTROSE 50% 50 ML SYRINGE IV PRN (14:07)
[2022-12-14] MEDS ORDERED: GLUCAGON FOR INJ 1 MG VIAL SQ PRN (14:07)
[2022-12-14] MEDS ORDERED: HYDROmorphone INJ 0.5 MG/0.5 ML SYR IV PRN (14:07)
[2022-12-14] MEDS ORDERED: GLUCOSE 40% GEL 15 GM TUBE PO PRN (14:07)
[2022-12-14 14:19] LABS: Appearance Urine Clear (Clear); Bacteria Urine Automated Negative (Negative); Bilirubin Urine Negative (Negative); Blood Urine 2+ (Negative); Cast Urine Automated 0 /lpf (0-5); Color Urine Yellow; Epithelial Cell Urine Auto 20-30 /lpf (0-5); Glucose Urine UA Negative (Negative); Ketones Urine Trace (Negative); Leukocyte Esterase Urine Negative (Negative); Nitrite Urine Negative (Negative); Protein Urine Trace (Negative); Specific Gravity Urine 1.016 (1.000-1.030); Urobilinogen Urine Negative (Negative)
--- NOTE | 2022-12-14 14:52 | Cardiology Consultation ---
Date of Consultation December 14, 2022 Assessment & Plan (1) Elevated troponin: (2) Rhabdomyolysis: (3) Coronary artery disease: (4) Cerebrovascular disease: Plan Please refer to physician addendum for further information as well as full plan of care. Supervising Physician Co-Signing Physician Notes Attending Staff: Pt seen and evaluated with [facility] Staff. Concur with observations and plans 77 yo woman presenting s/p Mechanical Fall Known CAD No chest pain leading to the event No palpitations No dyspnea Troponin checked - noted to be elevated Suspect demand ischemia Continue ASA 81 mg po per day On DOAC for DVT Will need coronary evaluation when immediate issues are resolved Hossein Villafana History of Present Illness Reason for Consultation: Elevated troponin Requesting Physician: José Miguel singer Attending Physician: iTerney Carcamo MD History of Present Illness 77-year-old female who presented to [facility] emergency department after suffering a mechanical fall yesterday afternoon around 3 PM. Patient was found this morning. Lab work remarkable for: Elevated WBC of 15.51, mild anemia noted with a hemoglobin of 10.9 (at baseline), hyponatremia, sodium 131. Elevation serum creatinine 1.9, high-sensitivity troponin 1038.4, CK 3000 EKG showing normal sinus rhythm, heart rate in the 70s, without any acute ST segment changes suggestive of ischemia Echocardiogram pending. Past medical history: Coronary artery disease-- history of non-ST elevation [place] S/P bare metal stenting to both LAD and right coronary arteries 11/2010. 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 Chronic hyponatremia Carotid artery stenosis 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 propoxyphene AdvReac Intermediate GI UPSET, Verified 10/20/22 23:42 "DISORIENTED" amoxicillin AdvReac Mild VOMITING, Verified 10/20/22 23:42 GI UPSET baclofen AdvReac Mild disoriented Verified 10/20/22 23:42 nausea capsaicin [Diclopak] AdvReac Mild disoriented Verified 10/20/22 23:42 nausea clavulanic acid AdvReac Mild VOMITING, Verified 10/20/22 23:42 GI UPSET diclofenac [Diclopak] AdvReac Mild disoriented Verified 10/20/22 23:42 nausea Diclopak AdvReac Mild disoriented Verified 06/22/16 00:52 nausea codeine AdvReac Unknown pruritis Verified 10/20/22 23:44 Home Medications Medication Instructions Recorded Confirmed Type amlodipine 2.5 mg tablet 2.5 mg PO PM 10/20/22 12/14/22 History aspirin 81 mg tablet,delayed 81 mg PO PM 10/20/22 12/14/22 History release atorvastatin 80 mg tablet 80 mg PO PM 10/20/22 12/14/22 History ezetimibe 10 mg tablet 10 mg PO QAM 10/20/22 12/14/22 History icosapent ethyl 1 gram capsule 2 g PO BIDM 10/20/22 12/14/22 History levothyroxine 112 mcg tablet 112 mcg PO DAILYBB 10/20/22 12/14/22 History magnesium oxide 400 mg PO BID 10/20/22 12/14/22 History metformin 500 mg tablet 500 mg PO QAM 10/20/22 12/14/22 History metoprolol succinate 25 mg 25 mg PO QAM 10/20/22 12/14/22 History tablet,extended release 24 hr omeprazole 40 mg capsule,delayed 40 mg PO DAILYBB 10/20/22 12/14/22 History release topiramate 100 mg tablet See Rx Instructions .Route .COMPLEX 10/20/22 12/14/22 History pyridoxine (vitamin B6) 250 mg 250 mg PO .NOON 10/21/22 12/14/22 History tablet (Vitamin B-6) apixaban 5 mg tablet (Eliquis) 5 mg PO BID 12/14/22 12/14/22 History cholecalciferol (vitamin D3) 125 125 mcg PO .NOON 12/14/22 12/14/22 History mcg (5,000 unit) tablet (Vitamin D3) docusate sodium 100 mg capsule 100 mg PO DAILY 12/14/22 12/14/22 History (Colace) furosemide 20 mg tablet 20 mg PO .QAM AND NOON 12/14/22 12/14/22 History lisinopril 20 mg tablet 20 mg PO QAM 12/14/22 12/14/22 History oxcarbazepine 150 mg tablet See Rx Instructions .Route .COMPLEX 12/14/22 12/14/22 History (Trileptal) oxcarbazepine 300 mg tablet See Rx Instructions .Route .COMPLEX 12/14/22 12/14/22 History (Trileptal) Patient History Medical History Acute non-ST segment elevation myocardial infarction (11/22/10) Benign hypertension (11/22/10) Carotid artery stenosis (11/22/10) Cerebrovascular disease "old lacunar strokes on imaging" Coronary artery disease (11/22/10) Gastroesophageal reflux disease (11/22/10) History of adenomatous polyp of colon Hyperlipidemia (11/22/10) Hyponatremia Hypothyroidism (11/22/10) Migraine Osteoarthritis Spinal stenosis in cervical region Surgical History Status post coronary artery stent placement Status post hysterectomy Social History Smoking Status: Former smoker Hx Alcohol Use: No Hx Substance Use: No Preferred Language: Nepali Communication Ability: Effective [employer] Developer Required: No Beliefs That Will Affect Care: None Current Living Situation: Alone Feels Safe at Home: Yes Assistive Devices: Cane and Walker Review of Systems Review of Systems: All systems reviewed & are unremarkable except as noted in HPI & below Physical Exam Physical Exam: In bed - NAD Left facial abrasion (rug burn) + left facial swelling S1S2 - No CTA B on anterior exam + BS Abdomen: non-distended No c/c/e Results & Data Vital Signs (Past 12 Hours) Vital Signs Temp Pulse Pulse Resp BP BP Pulse Ox 12/14/22 14:06 92 H 18 97 12/14/22 14:00 86 18 94 12/14/22 12:20 18 12/14/22 12:20 88 94 12/14/22 13:43 100 H 12/14/22 12:08 82 18 152/78 H 98 12/14/22 09:42 86 12/14/22 09:37 96 12/14/22 09:19 36.6 C 80 18 146/66 H 96 O2 Del Method 12/14/22 14:06 Room Air 12/14/22 14:00 12/14/22 12:20 12/14/22 12:20 Room Air 12/14/22 13:43 12/14/22 12:08 Room Air 12/14/22 09:42 12/14/22 09:37 Room Air 12/14/22 09:19 Nasal Cannula Laboratory Results Cardiac Enzymes 12/14/22 12/14/22 Range/Units 09:53 14:26 AST 157 H (13-39) U/L Troponin I High Sens 1038.4 H* 1031.7 H* (0-14) pg/ml Coagulation 12/14/22 Range/Units 09:53 PT 11.2 (9.0-12.0) Seconds APTT 26.9 (21.0-31.0) Seconds CBC 12/14/22 Range/Units 09:53 WBC 15.51 H (4.8-10.8) K/ul RBC 3.48 L (4.20-5.40) M/uL Hgb 10.9 L (12.0-16.0) g/dl Hct 31.0 L (37.0-47.0) % Plt Count 227 (130-400) K/uL Neut # (Auto) 13.41 H (1.40-6.50) K/uL Lymph # (Auto) 1.09 L (1.2-3.4) K/uL [place] # (Auto) 0.90 H (0.11-0.59) K/uL Eos # (Auto) 0.01 (0-0.50) K/uL Baso # (Auto) 0.04 (0-0.2) K/uL Comprehensive Metabolic Panel 12/14/22 12/14/22 Range/Units 09:53 14:26 Sodium 128 L 131 L (136-145) mmol/L Potassium 4.8 (3.5-5.1) mmol/L Chloride 99 (98-107) mmol/L Carbon Dioxide 22 (21-32) mmol/L BUN 35 H (6-23) mg/dl Creatinine 1.98 H (0.6-1.2) mg/dl Glucose 101 H (70-99(Fasting)) mg/dl Calcium 10.0 (8.6-10.3) mg/dl AST 157 H (13-39) U/L ALT 57 H (7-52) U/L Alkaline Phosphatase 59 (34-104) U/L Total Protein 6.2 (6.0-8.3) gm/dl Albumin 3.9 (3.4-5.0) gm/dl Intake and Output 12/14/22 12/14/22 12/14/22 06:59 14:59 22:59 Intake Total 1500 / 1500 Output Total Balance 1490 / 1490 Intake: IV 1500 / 1500 Sodium Chloride 0.9% 1000ML 1, 1000 / 1000 000 ml @ 999 mls/hr IV .Q1H1M [facility] Rx#:[id number] Sodium Chloride 0.9% 500 ml @ 500 / 500 999 mls/hr IV .Q31M [facility] Rx#: [id number] Oral 0 / 0 Output: Urine 0 / 0 Emesis Other: Weight 75.4 kg Weight Measurement Method Built in [facility] Patient Weight 12/15/22 06:59 Weight 75.4 kg Medications Administered Current Inpatient Medications Acetaminophen (Acetaminophen 325 Mg Tab) 650 mg PO Q4H PRN PRN Reason: Pain or Fever Stop: 01/13/23 12:19 Amlodipine Besylate (Amlodipine Besylate 5 Mg Tab) 2.5 mg PO PM DAJA Stop: 01/13/23 20:59 Apixaban (Apixaban 5 Mg Tablet) 5 mg PO BID DAJA Stop: 01/14/23 08:59 Aspirin (Aspirin 81 Mg Ectab) 81 mg PO PM DAJA Stop: 01/14/23 20:59 Atorvastatin Calcium (Atorvastatin 40 Mg Tab) 80 mg PO PM DAJA Stop: 01/13/23 20:59 Dextrose (Dextrose 50% 50 Ml Syringe) 25 - 50 ml IV UD PRN; Protocol PRN Reason: Hypoglycemia Protocol Stop: 01/13/23 14:06 Docusate Sodium (Docusate Sodium 100 Mg Cap) 100 mg PO DAILY DAJA Stop: 01/14/23 08:59 Ezetimibe (Ezetimibe 10 Mg Tablet) 10 mg PO QAM [facility] Stop: 01/14/23 08:59 Furosemide (Furosemide 20 Mg Tab) 20 mg PO DAILY@0700,1200 [facility] Stop: 01/14/23 06:59 Glucagon (Glucagon For Inj 1 Mg Vial) 1 mg SQ UD PRN; Protocol PRN Reason: Hypoglycemia Protocol Stop: 01/13/23 14:06 Glucose (Glucose 10 Tab/Tube) 4 - 8 tab PO UD PRN; Protocol PRN Reason: Hypoglycemia Treatment Stop: 01/13/23 14:06 Glucose (Glucose 40% Gel 15 Gm Tube) 15 - 30 gm PO UD PRN; Protocol PRN Reason: Hypoglycemia Protocol Stop: 01/13/23 14:06 Hydromorphone HCl (Hydromorphone Inj 0.5 Mg/0.5 Ml Syr) 0.25 mg IV Q4H PRN PRN Reason: Severe Pain (Scale 7, 8, 9,10) Stop: 12/28/22 14:06 Ceftriaxone Sodium 2,000 mg/ (Dextrose) 70 mls @ 100 mls/hr IV Q24H [facility]; Protocol Stop: 12/16/22 14:29 Last Admin: 12/14/22 16:13 Dose: 100 mls/hr Insulin Aspart (Insulin Aspart Per Unit Charge) 0 units SC ACHS [facility] Stop: 01/13/23 16:29 Insulin Glargine (Lantus Per Unit Charge) 7 units SQ BID [facility] Stop: 01/13/23 20:59 Levothyroxine Sodium (Levothyroxine Sodium 112 Mcg Tablet) 112 mcg PO DAILYBB [facility] Stop: 01/14/23 06:29 Lisinopril (Lisinopril 20 Mg Tab) 20 mg PO QAM [facility] Stop: 01/14/23 08:59 Magnesium Oxide (Magnesium Oxide 400 Mg Tab) 400 mg PO BID [facility] Stop: 01/13/23 20:59 Metoprolol Succinate (Metoprolol Succ 25mg Ext Rel Tab) 25 mg PO QAM [facility] Stop: 01/14/23 08:59 Miscellaneous (Vascepa- Order Awaiting Action) 1 each N/A QS [facility] Stop: 01/13/23 15:59 Last Admin: 12/14/22 16:14 Dose: Not Given Miscellaneous (Carbohydrates For Hypoglycemia ) 15 - 30 gm PO UD PRN PRN Reason: Hypoglycemia Protocol Stop: 01/13/23 14:06 Ondansetron HCl (Ondansetron Inj 2 Mg/Ml 2 Ml Vial) 4 mg IV Q6H PRN PRN Reason: Nausea Stop: 01/13/23 12:19 Last Admin: 12/14/22 13:38 Dose: 4 mg Oxcarbazepine (Oxcarbazepine 150 Mg Tablet) 450 mg PO BID [facility] Stop: 01/13/23 20:59 Pantoprazole Sodium (Pantoprazole 40 Mg Tab) 40 mg PO DAILYBB [facility] Stop: 01/14/23 06:29 Polyethylene Glycol (Polyethylene (Miralax) 17 Gm Pack) 17 gm PO DAILY PRN PRN Reason: Constipation Stop: 01/13/23 12:19 Pyridoxine HCl (Pyridoxine Hcl 50 Mg Tab) 250 mg PO DAILY@1200 [facility] Stop: 01/14/23 11:59 Topiramate (Topiramate 100 Mg Tab) 100 mg PO BID@0900,1200 [facility] Stop: 01/13/23 14:29 Topiramate (Topiramate 100 Mg Tab) 200 mg PO HS [facility] Stop: 01/13/23 20:59 Vitamin D (Cholecalciferol 5,000 Units 125 Mcg Tab) 5,000 units PO DAILY@1200 [facility] Stop: 01/14/23 11:59 (2) Rhabdomyolysis Rhabdomyolysis type: non-traumatic Qualified Code(s): M62.82 - Rhabdomyolysis
[2022-12-14 15:06] LABS: Troponin I High Sensitivity 1031.7 pg/ml (0-14)
[2022-12-14] MEDS: cefTRIAXone SODIUM 2,000 MG in DEXTROSE 5% 50 ML IV SCH (16:13)
[2022-12-14] MEDS: TOPIRAMATE 100 MG TAB PO SCH ×2 (16:33→20:37)
[2022-12-14] MEDS: INSULIN ASPART PER UNIT CHARGE SC SCH ×2 (17:27→20:44)
[2022-12-14] MEDS: amLODIPine BESYLATE 5 MG TAB PO SCH (20:35)
[2022-12-14] MEDS: SODIUM CHLORIDE 0.9% 1000ML 1,000 ML IV SCH (20:35)
[2022-12-14] MEDS: MAGNESIUM OXIDE 400 MG TAB PO SCH (20:35)
[2022-12-14] MEDS: OXcarbazepine 150 MG TABLET PO SCH (20:36)
[2022-12-14] MEDS: ATORVASTATIN 40 MG TAB PO SCH (20:37)
[2022-12-14] MEDS: LANTUS PER UNIT CHARGE SQ SCH (20:37)
[2022-12-14 21:58] LABS: Troponin I High Sensitivity 783.9 pg/ml (0-14)
[2022-12-15] MEDS: PANTOprazole 40 MG TAB PO SCH (06:19)
[2022-12-15] MEDS: LEVOTHYROXINE SODIUM 112 MCG TABLET PO SCH (06:19)
[2022-12-15] MEDS: FUROSEMIDE 20 MG TAB PO SCH ×2 (06:19→08:36)
[2022-12-15 07:44] LABS: Basophils # (auto) 0.08 K/uL (0-0.2); Basophils % (auto) 0.7 %; Hematocrit (blood only) 30.1 % (37.0-47.0); Hemoglobin 10.1 g/dl (12.0-16.0); Immature Granulocytes # (auto) 0.04 K/uL (0.01-0.20); Immature Granulocytes % (auto) 0.3 %; Lymphocytes # (auto) 1.54 K/uL (1.2-3.4); Lymphocytes % (auto) 12.8 %; Mean Corpuscular Hgb Conc 33.6 g/dL (32.0-36.0); Mean Corpuscular Volume 92.3 fL (80.0-100.0); Monocytes # (auto) 0.84 K/uL (0.11-0.59); Neutrophils # (auto) 9.54 K/uL (1.40-6.50); Neutrophils % (auto) 79.2 %; Platelet Count 210 K/uL (130-400); RDW Coefficient of Variation 13.1 % (11.5-14.5); RDW Standard Deviation 43.8 fL (36.4-46.3); Red Blood Count 3.26 M/uL (4.20-5.40); White Blood Count 12.04 K/ul (4.8-10.8)
--- NOTE | 2022-12-15 07:46 | Cardiology Progress Note ---
Date of Service December 15, 2022 Assessment & Plan (1) Elevated troponin: (2) Rhabdomyolysis: (3) Coronary artery disease: (4) Cerebrovascular disease: Plan Please refer to physician addendum for further information as well as full plan of care. Admission and Anticipated Discharge Date Admission Date: December 14, 2022 Supervising Physician Co-Signing Physician Notes Attending Staff: Pt seen and evaluated with [facility] Staff. Concur with observations and plans 77 yo woman presenting s/p Mechanical Fall Known CAD No chest pain leading to the event No palpitations No dyspnea Troponin checked - noted to be elevated - currently trending down + Rhabdomyolysis - CK trending down ALBERTINA - improving - creatinine trending down Suspect demand ischemia in the setting on prolonged stress No Angina reported overnight Continue ASA 81 mg po per day SBP @ goal (114 mmHg) HR WNL (88 BPM) On DOAC for DVT Will need coronary evaluation when immediate issues are resolved/when she recovers Please ambulate with patient, when safe, to ensure that she does not have exertional chest discomfort or profound dyspnea Would suggest a Pharmacologic Stress Test as an outpatient Please call back with any additional questions or concerns Hossein Villafana Subjective Events overnight: * No events reported Subjective: * No complaints * No chest pain * No dyspnea reported Review of Systems Review of Systems: All systems reviewed & are unremarkable except as noted in HPI & below Physical Exam Physical Exam: In bed - NAD Left facial abrasion (rug burn) + left facial swelling S1S2 - No CTA B on anterior exam + BS Abdomen: non-distended No c/c/e Results & Data Vital Signs (Past 12 Hours) Vital Signs Temp Pulse Pulse Resp BP Pulse Ox O2 Del Method 12/15/22 07:34 36.8 C 106 H 20 116/73 99 Room Air 12/15/22 03:11 36.8 C 105 H 16 121/73 99 Room Air 12/15/22 00:47 96 H 12/14/22 23:13 36.7 C 91 H 18 110/69 98 Room Air Laboratory Results Cardiac Enzymes 12/14/22 12/14/22 12/15/22 Range/Units 14:26 20:51 06:47 AST 134 H (13-39) U/L Troponin I High Sens 1031.7 H* 783.9 H* D (0-14) pg/ml CBC 12/15/22 Range/Units 06:47 WBC 12.04 H (4.8-10.8) K/ul RBC 3.26 L (4.20-5.40) M/uL Hgb 10.1 L (12.0-16.0) g/dl Hct 30.1 L (37.0-47.0) % Plt Count 210 (130-400) K/uL Neut # (Auto) 9.54 H (1.40-6.50) K/uL Lymph # (Auto) 1.54 (1.2-3.4) K/uL [place] # (Auto) 0.84 H (0.11-0.59) K/uL Eos # (Auto) 0.00 (0-0.50) K/uL Baso # (Auto) 0.08 (0-0.2) K/uL Comprehensive Metabolic Panel 12/14/22 12/14/22 12/15/22 Range/Units 14:26 20:51 06:47 Sodium 131 L 130 L 130 L (136-145) mmol/L Potassium 4.6 (3.5-5.1) mmol/L Chloride 103 (98-107) mmol/L Carbon Dioxide 19 L (21-32) mmol/L BUN 36 H (6-23) mg/dl Creatinine 1.89 H (0.6-1.2) mg/dl Glucose 59 L (70-99(Fasting)) mg/dl Calcium 9.1 (8.6-10.3) mg/dl AST 134 H (13-39) U/L ALT 52 (7-52) U/L Alkaline Phosphatase 52 (34-104) U/L Total Protein 5.5 L (6.0-8.3) gm/dl Albumin 3.3 L (3.4-5.0) gm/dl Intake and Output 12/14/22 12/15/22 12/15/22 22:59 06:59 14:59 Intake Total 170 / 1670 962.667 / 962.667 Output Total 300 / 710 400 / 710 Balance -130 / 960 -400 / 960 962.667 / 962.667 Intake: IV 70 / 1570 962.667 / 962.667 Sodium Chloride 0.9% 1000ML 1, 962.667 / 962.667 000 ml @ 80 mls/hr IV .[id number] [facility] Rx#:[id number] cefTRIAXone SODIUM 2,000 mg In 70 / 70 Dextrose 5% 50 ml @ 100 mls/hr IV Q24H [facility] Rx#:[id number] Oral 100 / 100 Output: Urine Amount (Catheter) 300 / 700 400 / 700 External 300 / 700 400 / 700 Other: Other Intake Source SIPS Weight 88.451 kg 75.2 kg Weight Measurement Method Built in [facility] Medications Administered Current Inpatient Medications Acetaminophen (Acetaminophen 325 Mg Tab) 650 mg PO Q4H PRN PRN Reason: Pain or Fever Stop: 01/13/23 12:19 Amlodipine Besylate (Amlodipine Besylate 5 Mg Tab) 2.5 mg PO PM [facility] Stop: 01/13/23 20:59 Last Admin: 12/14/22 20:35 Dose: 2.5 mg Apixaban (Apixaban 5 Mg Tablet) 5 mg PO BID [facility] Stop: 01/14/23 08:59 Last Admin: 12/15/22 08:36 Dose: 5 mg Aspirin (Aspirin 81 Mg Ectab) 81 mg PO PM [facility]JA Stop: 01/14/23 20:59 Atorvastatin Calcium (Atorvastatin 40 Mg Tab) 80 mg PO PM [facility] Stop: 01/13/23 20:59 Last Admin: 12/14/22 20:37 Dose: 80 mg Dextrose (Dextrose 50% 50 Ml Syringe) 25 - 50 ml IV UD PRN; Protocol PRN Reason: Hypoglycemia Protocol Stop: 01/13/23 14:06 Docusate Sodium (Docusate Sodium 100 Mg Cap) 100 mg PO DAILY [facility]JA Stop: 01/14/23 08:59 Last Admin: 12/15/22 08:37 Dose: 100 mg Ezetimibe (Ezetimibe 10 Mg Tablet) 10 mg PO QAM [facility] Stop: 01/14/23 08:59 Last Admin: 12/15/22 08:36 Dose: 10 mg Furosemide (Furosemide 20 Mg Tab) 20 mg PO DAILY@0700,1200 [facility] Stop: 01/14/23 06:59 Last Admin: 12/15/22 08:36 Dose: 20 mg Glucagon (Glucagon For Inj 1 Mg Vial) 1 mg SQ UD PRN; Protocol PRN Reason: Hypoglycemia Protocol Stop: 01/13/23 14:06 Glucose (Glucose 10 Tab/Tube) 4 - 8 tab PO UD PRN; Protocol PRN Reason: Hypoglycemia Treatment Stop: 01/13/23 14:06 Glucose (Glucose 40% Gel 15 Gm Tube) 15 - 30 gm PO UD PRN; Protocol PRN Reason: Hypoglycemia Protocol Stop: 01/13/23 14:06 Hydromorphone HCl (Hydromorphone Inj 0.5 Mg/0.5 Ml Syr) 0.25 mg IV Q4H PRN PRN Reason: Severe Pain (Scale 7, 8, 9,10) Stop: 12/28/22 14:06 Ceftriaxone Sodium 2,000 mg/ (Dextrose) 70 mls @ 100 mls/hr IV Q24H [facility]; Protocol Stop: 12/16/22 14:29 Last Infusion: 12/14/22 16:55 Dose: Infused Sodium Chloride (Nss 1000ml) 1,000 mls @ 80 mls/hr IV .[id number] [facility] Stop: 01/13/23 20:14 Last Admin: 12/15/22 10:13 Dose: 80 mls/hr Insulin Aspart (Insulin Aspart Per Unit Charge) 0 units SC ACHS [facility] Stop: 01/13/23 16:29 Last Admin: 12/15/22 13:00 Dose: Not Given Levothyroxine Sodium (Levothyroxine Sodium 112 Mcg Tablet) 112 mcg PO DAILYBB [facility] Stop: 01/14/23 06:29 Last Admin: 12/15/22 06:19 Dose: 112 mcg Lisinopril (Lisinopril 20 Mg Tab) 20 mg PO QAM [facility] Stop: 01/14/23 08:59 Last Admin: 12/15/22 08:36 Dose: 20 mg Magnesium Oxide (Magnesium Oxide 400 Mg Tab) 400 mg PO BID [facility] Stop: 01/13/23 20:59 Last Admin: 12/15/22 08:37 Dose: 400 mg Metoprolol Succinate (Metoprolol Succ 25mg Ext Rel Tab) 25 mg PO QAM [facility] Stop: 01/14/23 08:59 Last Admin: 12/15/22 08:37 Dose: 25 mg Miscellaneous (Vascepa- Order Awaiting Action) 1 each N/A QS [facility] Stop: 01/13/23 15:59 Last Admin: 12/15/22 08:38 Dose: Not Given Miscellaneous (Carbohydrates For Hypoglycemia ) 15 - 30 gm PO UD PRN PRN Reason: Hypoglycemia Protocol Stop: 01/13/23 14:06 Ondansetron HCl (Ondansetron Inj 2 Mg/Ml 2 Ml Vial) 4 mg IV Q6H PRN PRN Reason: Nausea Stop: 01/13/23 12:19 Last Admin: 12/14/22 13:38 Dose: 4 mg Oxcarbazepine (Oxcarbazepine 150 Mg Tablet) 450 mg PO BID [facility] Stop: 01/13/23 20:59 Last Admin: 12/15/22 08:37 Dose: 450 mg Pantoprazole Sodium (Pantoprazole 40 Mg Tab) 40 mg PO DAILYBB [facility] Stop: 01/14/23 06:29 Last Admin: 12/15/22 06:19 Dose: 40 mg Polyethylene Glycol (Polyethylene (Miralax) 17 Gm Pack) 17 gm PO DAILY PRN PRN Reason: Constipation Stop: 01/13/23 12:19 Pyridoxine HCl (Pyridoxine Hcl 50 Mg Tab) 250 mg PO DAILY@1200 [facility] Stop: 01/14/23 11:59 Last Admin: 12/15/22 08:36 Dose: 250 mg Topiramate (Topiramate 100 Mg Tab) 100 mg PO BID@0900,1200 [facility] Stop: 01/13/23 14:29 Last Admin: 12/15/22 08:37 Dose: 100 mg Topiramate (Topiramate 100 Mg Tab) 200 mg PO HS [facility] Stop: 01/13/23 20:59 Last Admin: 12/14/22 20:37 Dose: 200 mg Vitamin D (Cholecalciferol 5,000 Units 125 Mcg Tab) 5,000 units PO DAILY@1200 [facility] Stop: 01/14/23 11:59 Last Admin: 12/15/22 08:37 Dose: 5,000 units (2) Rhabdomyolysis Rhabdomyolysis type: non-traumatic Qualified Code(s): M62.82 - Rhabdomyolysis
[2022-12-15 08:01] LABS: Albumin Globulin Ratio 1.5 (0.9-2); Albumin Level 3.3 gm/dl (3.4-5.0); Bilirubin,Total 0.4 mg/dl (0.2-1.0); Calcium 9.1 mg/dl (8.6-10.3); Creatinine Clr Calc Pharmacy 21.2 ml/min; Est GFR (African American) 28.9 ml/min; Globulin 2.2 gm/dl (2.5-4.0); Potassium 4.6 mmol/L (3.5-5.1); Total Protein 5.5 gm/dl (6.0-8.3)
[2022-12-15] MEDS: INSULIN ASPART PER UNIT CHARGE SC SCH ×4 (08:34→22:00)
[2022-12-15] MEDS: EZETIMIBE 10 MG TAB PO SCH (08:36)
[2022-12-15] MEDS: lisinopril 20 MG TAB PO SCH (08:36)
[2022-12-15] MEDS: PYRIDOXINE HCL 50 MG TAB PO SCH (08:36)
[2022-12-15] MEDS: APIXABAN 5 MG TABLET PO SCH ×2 (08:36→22:20)
[2022-12-15] MEDS: MAGNESIUM OXIDE 400 MG TAB PO SCH ×2 (08:37→22:19)
[2022-12-15] MEDS: DOCUSATE SODIUM 100 MG CAP PO SCH (08:37)
[2022-12-15] MEDS: METOPROLOL SUCC 25MG EXT REL TAB PO SCH (08:37)
[2022-12-15] MEDS: CHOLECALCIFEROL 5,000 UNITS 125 MCG TAB PO SCH (08:37)
[2022-12-15] MEDS: TOPIRAMATE 100 MG TAB PO SCH ×3 (08:37→22:21)
[2022-12-15] MEDS: OXcarbazepine 150 MG TABLET PO SCH ×2 (08:37→22:20)
[2022-12-15 08:40] LABS: Estimated Average Glucose 108 mg/dl; Hemoglobin A1C 5.4 % (4.5-5.6)
[2022-12-15] MEDS: LANTUS PER UNIT CHARGE SQ SCH (10:13)
[2022-12-15] MEDS: SODIUM CHLORIDE 0.9% 1000ML 1,000 ML IV SCH ×2 (10:13→22:25)
--- NOTE | 2022-12-15 10:51 | Hospitalist Progress Note ---
Date of Service December 15, 2022 Assessment & Plan (1) Fall: Plan: mechanical fall at home while ambulating with her walker, PT/OT. Patient may be fine with temporary rehab, but does not want to transition to assisted living. (2) Rhabdomyolysis: Plan: Nontraumatic rhabdomyolysis with prolonged time down on the floor. CK is improving wtih IVF. Renal dysfunction is present and nephrology is following. Cont IVF for now. (3) Hyponatremia: Plan: Known h/o SIADH. Na improved from 128 to 130. Cont IVF, PO Lasix and urea per nephrology. (4) Acute kidney injury superimposed on CKD: Plan: Baseline creat 1.2-1.4, currently close to 2.0. Cont IVF and renal dosing of medications as noted. (5) Coronary artery disease: Plan: chronic, stable. No evidence of ACS, however, with demand ischemia in response to stress, outpatient pharmacologic stress test is recommended post discharge. (6) Demand ischemia: Plan: plan as noted above. Echo performed this admission with no acute wall motion abnormalities. Cont current treatment for rhabdomyolysis. (7) Chronic pain: Plan: Patient is on trileptal 450mg BID, which was stopped on discharge after recent hospitalization (10/30/22) for severe hyponatremia 2/2 SIADH. She started it again recently per PCP notes as it reportedly helps her chronic pain. This has a known side effect of hyponatremia, especially when taken in combination with diuretics (she is on Lasix). This may be contributing to her current hyponatremia. She is also taking Topamax with max dose 400mg per day, which she is on. Given renal dysfunction and GFR<70, will decrease this by 50% per guidelines. (8) Facial abrasion: Plan: Pressure injury vs mild abrasion to face from sliding across the floor. For now will add bacitracin ointment and keep uncovered. Appreciate wound RN eval and recs. This does not appear infected at this point so will stop ceftriaxone. (9) DMII (diabetes mellitus, type 2): Plan: chronic, controlled with A1C 5.4. She was hypoglycemic this morning and glargine was stopped. (10) Hypothyroidism: Plan: chronic, stable. Cont Synthroid per home regimen. (11) Hyperlipidemia: Plan: chronic, stable. Cont atorvastatin, icosapent and zetia per home regimen. (12) Carotid artery stenosis: Plan: chronic, stable. Cont medical management. DVT proph-Eliquis Full Code Dispo-uncertain, pending PT/OT evaluation and recs. Will likely be here through the weekend. I spent a total [id number] coordinating, documenting, and providing care for this patient excluding time spent in the performance of separately billed services [facility] and Anticipated Discharge Date Admission Date: December 14, 2022 Subjective 77 yo F who lives alone fell at home after tripping on her walker and was unable to get to her phone or life alert subsequently lying on the floor overnight. She has some rug burn from pulling herself across the floor in the morning. She reports some left leg and left elbow pain and then states that her pain is generalized. She hasn't been able to eat well because her gums are sore as her dentures were pushed over and off track overnight when her head was resting on the floor. She currently has signs of a pressure injury to her left face. Workup revealed evidence of rhabdomyolysis and she was started on IV fluids. Trauma scans reveal no acute fracture. She was also found to have a Na 128 on admission with a known h/o SIADH and her creatinine was elevated tfrom baseline of 1.2 to now 1.98. Elevated WBC to 15K and trop 1038 was seen without evidence supporting ACS. An echo was performed today revealing no acute wall motion abnormalities, and the troponin was trended and came down with the CK. She continues on apixaban and aspirin for h/o CAD and CVA and recent DVT. There is no evidence of bleeding. CArdiology was consulted and recommends coronary evaluation when she is improved (pharmacologic stress test as outpatient), and that trop is secondary to demand ischemia. Per nephrology we are continuing with IVF and PO Lasix 20mg BID. Urea 15mg PO bID was added. Na improved overnight to 130. She has some pain in her heals and had an open wound on her leg present on arrival. Waffle boots ordered to elevate legs per her request. Food consistency changed to support offloading her gums. Review of Systems Review of Systems: All systems were reviewed and negative except as indicated on HPI above. Physical Exam Physical Exam: CONSTITUTIONAL: obese, vitals as above, generally well-appearing, NAD EYES: , some periorbital swelling as an extension of the cheek swelling and facial injury -pressure injury vs abrasion--on the left side ,normal conjunctivae, no scleral icterus ENT: external ear and nose normal, oropharynx clear, MMM NECK: trachea midline, RESPIRATORY: clear to auscultation bilaterally, no crackles, rales or wheezes, normal respiratory effort CARDIOVASCULAR: regular rate and rhythm, S1 and 2 heard without murmurs, gallops or rubs, no JVD, no peripheral edema CHEST: inspection of chest was normal GASTROINTESTINAL: soft, nontender, ND no guarding MUSCULOSKELETAL: strength 5/5 throughout, head is normocephalic and atraumatic SKIN: warm and dry, face as above. NEUROLOGIC: CN 2-12 grossly intact, no sensory deficit, normal cognition, normal speech, no tremor PSYCHIATRIC: alert cooperative and oriented to person, place and time. Euthymic mood, makes good eye contact, language grossly intact, recent and remote memory grossly intact. Results & Data Results & Data Vital Signs (Past 12 Hours) Vital Signs Temp Pulse Pulse Resp BP Pulse Ox O2 Del Method 12/15/22 07:34 36.8 C 106 H 20 116/73 99 Room Air 12/15/22 03:11 36.8 C 105 H 16 121/73 99 Room Air 12/15/22 00:47 96 H 12/14/22 23:13 36.7 C 91 H 18 110/69 98 Room Air (1) Fall Encounter type: subsequent encounter Qualified Code(s): W19.XXXD - Unspecified fall, subsequent encounter (2) Rhabdomyolysis Rhabdomyolysis type: non-traumatic Qualified Code(s): M62.82 - Rhabdomyolysis
[2022-12-15] MEDS: cefTRIAXone SODIUM 2,000 MG in DEXTROSE 5% 50 ML IV SCH (14:57)
--- NOTE | 2022-12-15 15:04 | Nephrology Consultation ---
Date of Consultation December 15, 2022 Assessment & Plan (1) Hyponatremia: She is known to have SIADH and had been advised for urea 15 gm bid with 1.5 fluid restriction and 20 mg lasix orally. - She received 2lit of fluid yesterday, her renal fucntions and sodium has improved. CK level is also trending down - Continue of 2 lit FR for today as well, continue on BID 20 mg lasix, add urea 15 mg biD from today - If her sodium continue to improve, she can be discharged on urea 15 gm bid with 1.5 fluid restriction and 20 mg ( once ) lasix orally History of Present Illness Reason for Consultation: Acute on chronic Hyponatremia Attending Physician: Maranda Morales DO History of Present Illness 76yoF who was admitted after a" fall" and was on the floor for sometime.ER labs were siginificant for sCR 1.98 (baseline early 1.0's) , raised CK of 3906 and sodium of 128.She was alert , oriented on exam with no SOB and trace edema bilaterally. PMHx significant for CAD s/p stent, hx of DVT on eliquis, PVD, CVA, HTN, HLD, T2DM, hypothyroidism, chronic hyponatremia, chronic anemia [baseline hemoglobin around 11], GERD, mood disorder, chronic pain and lower extremity edema 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 propoxyphene AdvReac Intermediate GI UPSET, Verified 10/20/22 23:42 "DISORIENTED" amoxicillin AdvReac Mild VOMITING, Verified 10/20/22 23:42 GI UPSET baclofen AdvReac Mild disoriented Verified 10/20/22 23:42 nausea capsaicin [Diclopak] AdvReac Mild disoriented Verified 10/20/22 23:42 nausea clavulanic acid AdvReac Mild VOMITING, Verified 10/20/22 23:42 GI UPSET diclofenac [Diclopak] AdvReac Mild disoriented Verified 10/20/22 23:42 nausea Diclopak AdvReac Mild disoriented Verified 06/22/16 00:52 nausea codeine AdvReac Unknown pruritis Verified 10/20/22 23:44 Home Medications Medication Instructions Recorded Confirmed Type amlodipine 2.5 mg tablet 2.5 mg PO PM 10/20/22 12/14/22 History aspirin 81 mg tablet,delayed 81 mg PO PM 10/20/22 12/14/22 History release atorvastatin 80 mg tablet 80 mg PO PM 10/20/22 12/14/22 History ezetimibe 10 mg tablet 10 mg PO QAM 10/20/22 12/14/22 History icosapent ethyl 1 gram capsule 2 g PO BIDM 10/20/22 12/14/22 History levothyroxine 112 mcg tablet 112 mcg PO DAILYBB 10/20/22 12/14/22 History magnesium oxide 400 mg PO BID 10/20/22 12/14/22 History metformin 500 mg tablet 500 mg PO QAM 10/20/22 12/14/22 History metoprolol succinate 25 mg 25 mg PO QAM 10/20/22 12/14/22 History tablet,extended release 24 hr omeprazole 40 mg capsule,delayed 40 mg PO DAILYBB 10/20/22 12/14/22 History release topiramate 100 mg tablet See Rx Instructions .Route .COMPLEX 10/20/22 12/14/22 History pyridoxine (vitamin B6) 250 mg 250 mg PO .NOON 10/21/22 12/14/22 History tablet (Vitamin B-6) apixaban 5 mg tablet (Eliquis) 5 mg PO BID 12/14/22 12/14/22 History cholecalciferol (vitamin D3) 125 125 mcg PO .NOON 12/14/22 12/14/22 History mcg (5,000 unit) tablet (Vitamin D3) docusate sodium 100 mg capsule 100 mg PO DAILY 12/14/22 12/14/22 History (Colace) furosemide 20 mg tablet 20 mg PO .QAM AND NOON 12/14/22 12/14/22 History lisinopril 20 mg tablet 20 mg PO QAM 12/14/22 12/14/22 History oxcarbazepine 150 mg tablet See Rx Instructions .Route .COMPLEX 12/14/22 12/14/22 History (Trileptal) oxcarbazepine 300 mg tablet See Rx Instructions .Route .COMPLEX 12/14/22 3 History (Trileptal) Patient History Medical History Acute non-ST segment elevation myocardial infarction (11/22/10) Benign hypertension (11/22/10) Carotid artery stenosis (11/22/10) Cerebrovascular disease "old lacunar strokes on imaging" Coronary artery disease (11/22/10) Gastroesophageal reflux disease (11/22/10) History of adenomatous polyp of colon Hyperlipidemia (11/22/10) Hyponatremia Hypothyroidism (11/22/10) Migraine Osteoarthritis Spinal stenosis in cervical region Surgical History Status post coronary artery stent placement Status post hysterectomy Social History Smoking Status: Never smoker Hx Alcohol Use: No Hx Substance Use: No Preferred Language: Danish Communication Ability: Effective Medical Lead Required: No Beliefs That Will Affect Care: None Current Living Situation: Alone Current Living Situation Comment: home alone in apt building Other Information That Helps Us Care for You: No Feels Safe at Home: Yes Safety Concerns: Feels Safe At This Time Assistive Devices: Cane and Walker Review of Systems Review of Systems: All systems reviewed & are unremarkable except as noted in HPI & below Physical Exam Physical Exam: General: Alert, orientedx3. Skin: facial bruising and swelling noted on left face, left elbow with some erythema. Psych: Appropriate mood and affect Neuro: difficulty moving her left arm HEENT: facial bruising and swelling noted on left face CV: RRR, Normal s1, s2. Resp: no increased effort of breathing. Abdomen: Soft, nontender Extremities: Some edema in lower extremities bilaterally Results & Data Vital Signs (Past 12 Hours) Vital Signs Temp Pulse Pulse Resp BP Pulse Ox O2 Del Method 12/15/22 07:40 105 H 12/15/22 11:43 36.4 C L 88 20 114/71 98 Room Air 12/15/22 07:34 36.8 C 106 H 20 116/73 99 Room Air 12/15/22 03:11 36.8 C 105 H 16 121/73 99 Room Air Laboratory Results 12/15/22 06:47 12/15/22 06:47
[2022-12-15] MEDS: UREA (UREA-NA) 15 GM PACK PO SCH ×2 (17:22→22:18)
[2022-12-15] MEDS: ACETAMINOPHEN 325 MG TAB PO PRN (22:17)
[2022-12-15] MEDS: BACITRACIN OINT 14 GM TUBE EXT SCH (22:18)
[2022-12-15] MEDS: ASPIRIN 81 MG ECTAB PO SCH (22:20)
[2022-12-15] MEDS: ATORVASTATIN 40 MG TAB PO SCH (22:20)
[2022-12-15] MEDS: amLODIPine BESYLATE 5 MG TAB PO SCH (22:21)
[2022-12-16] MEDS: PANTOprazole 40 MG TAB PO SCH (06:36)
[2022-12-16] MEDS: FUROSEMIDE 20 MG TAB PO SCH ×2 (06:36→08:58)
[2022-12-16] MEDS: LEVOTHYROXINE SODIUM 112 MCG TABLET PO SCH (06:36)
[2022-12-16 07:13] LABS: Basophils # (auto) 0.07 K/uL (0-0.2); Basophils % (auto) 0.7 %; Hematocrit (blood only) 28.9 % (37.0-47.0); Hemoglobin 9.5 g/dl (12.0-16.0); Immature Granulocytes # (auto) 0.03 K/uL (0.01-0.20); Immature Granulocytes % (auto) 0.3 %; Lymphocytes # (auto) 1.59 K/uL (1.2-3.4); Lymphocytes % (auto) 15.8 %; Mean Corpuscular Hemoglobin 30.8 pg (25.0-34.0); Mean Corpuscular Hgb Conc 32.9 g/dL (32.0-36.0); Mean Corpuscular Volume 93.8 fL (80.0-100.0); Mean Platelet Volume 10.8 fL (9.4-12.4); Monocytes # (auto) 0.69 K/uL (0.11-0.59); Monocytes % (auto) 6.8 %; Neutrophils # (auto) 7.71 K/uL (1.40-6.50); Neutrophils % (auto) 76.4 %; Platelet Count 185 K/uL (130-400); RDW Coefficient of Variation 13.3 % (11.5-14.5); RDW Standard Deviation 45.4 fL (36.4-46.3); Red Blood Count 3.08 M/uL (4.20-5.40); White Blood Count 10.09 K/ul (4.8-10.8)
[2022-12-16 07:40] LABS: Albumin Level 3.3 gm/dl (3.4-5.0); BUN Creatinine Ratio 30.5 (10-20); Calcium 9.5 mg/dl (8.6-10.3); Creatinine Clr Calc Pharmacy 20.6 ml/min; Est GFR (African American) 27.5 ml/min; Est GFR (Non-African American) 23.8 ml/min; Phosphorus 3.4 mg/dl (2.5-4.9); Potassium 4.8 mmol/L (3.5-5.1)
--- NOTE | 2022-12-16 08:53 | Hospitalist Progress Note ---
Date of Service December 16, 2022 Assessment & Plan (1) Fall: Plan: mechanical fall at home while ambulating with her walker, PT/OT. Patient may be fine with temporary rehab, but does not want to transition to assisted living. (2) Rhabdomyolysis: Plan: Nontraumatic rhabdomyolysis with prolonged time down on the floor. CK is improving wtih IVF. Renal dysfunction is present and nephrology is following. Cont IVF for now. (3) Hyponatremia: Plan: Known h/o SIADH. Na improved from 128 to 130. Cont IVF, PO Lasix and urea per nephrology. (4) Acute kidney injury superimposed on CKD: Plan: Baseline creat 1.2-1.4, currently close to 2.0. Cont IVF and renal dosing of medications as noted. (5) Coronary artery disease: Plan: chronic, stable. No evidence of ACS, however, with demand ischemia in response to stress, outpatient pharmacologic stress test is recommended post discharge. (6) Demand ischemia: Plan: plan as noted above. Echo performed this admission with no acute wall motion abnormalities. Cont current treatment for rhabdomyolysis. (7) Chronic pain: Plan: Patient is on trileptal 450mg BID, which was stopped on discharge after recent hospitalization (10/30/22) for severe hyponatremia 2/2 SIADH. She started it again recently per PCP notes as it reportedly helps her chronic pain. This has a known side effect of hyponatremia, especially when taken in combination with diuretics (she is on Lasix). This may be contributing to her current hyponatremia. She is also taking Topamax with max dose 400mg per day, which she is on. Given renal dysfunction and GFR<70, will decrease this by 50% per guidelines. (8) Facial abrasion: Plan: Pressure injury vs mild abrasion to face from sliding across the floor. For now will add bacitracin ointment and keep uncovered. Appreciate wound RN eval and recs. This does not appear infected at this point so will stop ceftriaxone. (9) DMII (diabetes mellitus, type 2): Plan: chronic, controlled with A1C 5.4. She was hypoglycemic this morning and glargine was stopped. (10) Hypothyroidism: Plan: chronic, stable. Cont Synthroid per home regimen. (11) Hyperlipidemia: Plan: chronic, stable. Cont atorvastatin, icosapent and zetia per home regimen. (12) Carotid artery stenosis: Plan: chronic, stable. Cont medical management. DVT proph-Eliquis Full Code Dispo-uncertain, rehab recommended, however, patient is concerned that her benefits have run out. She lives alone with little to no support in the area. Case management to assist after the weekend. I spent a total [id number] coordinating, documenting, and providing care for this patient excluding time spent in the performance of separately billed services Maranda Morales DO [facility] [address] Hospitalist (13) Acute urinary retention: Admission and Anticipated Discharge Date Admission Date: December 14, 2022 Subjective 77 yo F admitted for mechanical fall and prolonged immobility resulting in nontraumatic rhabdomyolysis she is tearful today and states that she wants to go home she is upset about the food again today leg wounds are feeling somewhat better pain on the left side is better somewhat Review of Systems Review of Systems: All systems were reviewed and negative except as indicated on HPI above. Physical Exam Physical Exam: CONSTITUTIONAL: obese, vitals as above, generally well-appearing, NAD EYES: , some periorbital swelling as an extension of the cheek swelling and facial injury -pressure injury vs abrasion--on the left side ,normal conjunctivae, no scleral icterus ENT: external ear and nose normal, oropharynx clear, MMM NECK: trachea midline, RESPIRATORY: clear to auscultation bilaterally, no crackles, rales or wheezes, normal respiratory effort CARDIOVASCULAR: regular rate and rhythm, S1 and 2 heard without murmurs, gal lops or rubs, no JVD, no peripheral edema CHEST: inspection of chest was normal GASTROINTESTINAL: soft, nontender, ND no guarding MUSCULOSKELETAL: strength 5/5 throughout, head is normocephalic and atraumatic SKIN: warm and dry, face as above. NEUROLOGIC: CN 2-12 grossly intact, no sensory deficit, normal cognition, normal speech, no tremor PSYCHIATRIC: alert cooperative and oriented to person, place and time. Euthymic mood, makes good eye contact, language grossly intact, recent and remote memory grossly intact. Results & Data Results & Data Vital Signs (Past 12 Hours) Vital Signs Temp Pulse Pulse Resp BP BP Pulse Ox 12/16/22 07:31 36.5 C 82 18 121/79 97 12/15/22 21:59 90 08/12/23 03:17 36.6 C 74 18 119/72 96 12/15/22 23:22 36.5 C 90 18 107/66 95 O2 Del Method 12/16/22 07:31 Room Air 12/15/22 21:59 12/16/22 03:17 Room Air 12/15/22 23:22 Room Air Laboratory Results Short CBC 12/16/22 Range/Units 06:54 WBC 10.09 (4.8-10.8) K/ul Hgb 9.5 L (12.0-16.0) g/dl Hct 28.9 L (37.0-47.0) % Plt Count 185 (130-400) K/uL BMP 12/16/22 06:54 Sodium 134 L Potassium 4.8 Chloride 107 Carbon Dioxide 21 BUN 60 H D Creatinine 1.97 H Glucose 77 Calcium 9.5 Liver Function 12/16/22 Range/Units 06:54 Albumin 3.3 L (3.4-5.0) gm/dl Medications Administered Current Inpatient Medications Acetaminophen (Acetaminophen 325 Mg Tab) 650 mg PO Q4H PRN PRN Reason: Pain or Fever Stop: 01/13/23 12:19 Last Admin: 12/15/22 22:17 Dose: 650 mg Amlodipine Besylate (Amlodipine Besylate 5 Mg Tab) 2.5 mg PO PM DAJA Stop: 01/13/23 20:59 Last Admin: 12/15/22 22:21 Dose: Not Given Apixaban (Apixaban 5 Mg Tablet) 5 mg PO BID DAJA Stop: 01/14/23 08:59 Last Admin: 12/15/22 22:20 Dose: 5 mg Aspirin (Aspirin 81 Mg Ectab) 81 mg PO PM DAJA Stop: 01/14/23 20:59 Last Admin: 12/15/22 22:20 Dose: 81 mg Atorvastatin Calcium (Atorvastatin 40 Mg Tab) 80 mg PO PM DAJA Stop: 01/13/23 20:59 Last Admin: 12/15/22 22:20 Dose: 80 mg Bacitracin (Bacitracin Oint 14 Gm Tube) 1 appln EXT BID DAJA Stop: 01/14/23 20:59 Last Admin: 12/15/22 22:18 Dose: 1 appln Dextrose (Dextrose 50% 50 Ml Syringe) 25 - 50 ml IV UD PRN; Protocol PRN Reason: Hypoglycemia Protocol Stop: 01/13/23 14:06 Docusate Sodium (Docusate Sodium 100 Mg Cap) 100 mg PO DAILY [facility] Stop: 01/14/23 08:59 Last Admin: 12/15/22 08:37 Dose: 100 mg Ezetimibe (Ezetimibe 10 Mg Tablet) 10 mg PO QAM [facility] Stop: 01/14/23 08:59 Last Admin: 12/15/22 08:36 Dose: 10 mg Furosemide (Furosemide 20 Mg Tab) 20 mg PO DAILY@0700,1200 [facility] Stop: 01/14/23 06:59 Last Admin: 12/16/22 06:36 Dose: 20 mg Glucagon (Glucagon For Inj 1 Mg Vial) 1 mg SQ UD PRN; Protocol PRN Reason: Hypoglycemia Protocol Stop: 01/13/23 14:06 Glucose (Glucose 10 Tab/Tube) 4 - 8 tab PO UD PRN; Protocol PRN Reason: Hypoglycemia Treatment Stop: 01/13/23 14:06 Glucose (Glucose 40% Gel 15 Gm Tube) 15 - 30 gm PO UD PRN; Protocol PRN Reason: Hypoglycemia Protocol Stop: 01/13/23 14:06 Hydromorphone HCl (Hydromorphone Inj 0.5 Mg/0.5 Ml Syr) 0.25 mg IV Q4H PRN PRN Reason: Severe Pain (Scale 7, 8, 9,10) Stop: 12/28/22 14:06 Sodium Chloride (Nss 1000ml) 1,000 mls @ 80 mls/hr IV .[id number] [facility] Stop: 01/13/23 20:14 Last Admin: 12/15/22 22:25 Dose: 80 mls/hr Insulin Aspart (Insulin Aspart Per Unit Charge) 0 units SC ACHS [facility] Stop: 01/13/23 16:29 Last Admin: 12/15/22 22:00 Dose: Not Given Levothyroxine Sodium (Levothyroxine Sodium 112 Mcg Tablet) 112 mcg PO DAILYBB [facility] Stop: 01/14/23 06:29 Last Admin: 12/16/22 06:36 Dose: 112 mcg Lisinopril (Lisinopril 20 Mg Tab) 20 mg PO QAM [facility] Stop: 01/14/23 08:59 Last Admin: 12/15/22 08:36 Dose: 20 mg Magnesium Oxide (Magnesium Oxide 400 Mg Tab) 400 mg PO BID [facility] Stop: 01/13/23 20:59 Last Admin: 12/15/22 22:19 Dose: 400 mg Metoprolol Succinate (Metoprolol Succ 25mg Ext Rel Tab) 25 mg PO QAM [facility] Stop: 01/14/23 08:59 Last Admin: 12/15/22 08:37 Dose: 25 mg Miscellaneous (Vascepa- Order Awaiting Action) 1 each N/A QS [facility] Stop: 01/13/23 15:59 Last Admin: 12/16/22 00:54 Dose: Not Given Miscellaneous (Carbohydrates For Hypoglycemia ) 15 - 30 gm PO UD PRN PRN Reason: Hypoglycemia Protocol Stop: 01/13/23 14:06 Ondansetron HCl (Ondansetron Inj 2 Mg/Ml 2 Ml Vial) 4 mg IV Q6H PRN PRN Reason: Nausea Stop: 01/13/23 12:19 Last Admin: 12/14/22 13:38 Dose: 4 mg Oxcarbazepine (Oxcarbazepine 150 Mg Tablet) 450 mg PO BID [facility] Stop: 01/13/23 20:59 Last Admin: 12/15/22 22:20 Dose: 450 mg Pantoprazole Sodium (Pantoprazole 40 Mg Tab) 40 mg PO DAILYBB [facility] Stop: 01/14/23 06:29 Last Admin: 12/16/22 06:36 Dose: 40 mg Polyethylene Glycol (Polyethylene (Miralax) 17 Gm Pack) 17 gm PO DAILY PRN PRN Reason: Constipation Stop: 01/13/23 12:19 Pyridoxine HCl (Pyridoxine Hcl 50 Mg Tab) 250 mg PO DAILY@1200 [facility] Stop: 01/14/23 11:59 Last Admin: 12/15/22 08:36 Dose: 250 mg Topiramate (Topiramate 50 Mg Tab) 50 mg PO BID@0900,1200 [facility] Stop: 01/15/23 08:59 Topiramate (Topiramate 100 Mg Tab) 100 mg PO HS [facility] Stop: 01/15/23 20:59 Urea (Urea (Urea-Na) 15 Gm Pack) 15 gm PO BID [facility] Stop: 01/14/23 15:04 Last Admin: 12/15/22 22:18 Dose: 15 gm Vitamin D (Cholecalciferol 5,000 Units 125 Mcg Tab) 5,000 units PO DAILY@1200 [facility] Stop: 01/14/23 11:59 Last Admin: 12/15/22 08:37 Dose: 5,000 units (1) Fall Encounter type: subsequent encounter Qualified Code(s): W19.XXXD - Unspecified fall, subsequent encounter (2) Rhabdomyolysis Rhabdomyolysis type: non-traumatic Qualified Code(s): M62.82 - Rhabdomyolysis
[2022-12-16] MEDS: lisinopril 20 MG TAB PO SCH (08:58)
[2022-12-16] MEDS: METOPROLOL SUCC 25MG EXT REL TAB PO SCH (08:58)
[2022-12-16] MEDS: CHOLECALCIFEROL 5,000 UNITS 125 MCG TAB PO SCH (08:58)
[2022-12-16] MEDS: PYRIDOXINE HCL 50 MG TAB PO SCH (08:58)
[2022-12-16] MEDS: EZETIMIBE 10 MG TAB PO SCH (08:58)
[2022-12-16] MEDS: MAGNESIUM OXIDE 400 MG TAB PO SCH ×2 (08:59→21:51)
[2022-12-16] MEDS: APIXABAN 5 MG TABLET PO SCH ×2 (08:59→21:51)
[2022-12-16] MEDS: UREA (UREA-NA) 15 GM PACK PO SCH ×2 (08:59→21:52)
[2022-12-16] MEDS: OXcarbazepine 150 MG TABLET PO SCH ×2 (08:59→21:51)
[2022-12-16] MEDS: SODIUM CHLORIDE 0.9% 1000ML 1,000 ML IV SCH (09:00)
[2022-12-16] MEDS: DOCUSATE SODIUM 100 MG CAP PO SCH (09:00)
[2022-12-16] MEDS: BACITRACIN OINT 14 GM TUBE EXT SCH ×2 (09:00→21:51)
[2022-12-16] MEDS: INSULIN ASPART PER UNIT CHARGE SC SCH ×4 (09:00→20:50)
[2022-12-16] MEDS: TOPIRAMATE 50 MG TAB PO SCH ×2 (09:00→14:06)
[2022-12-16] MEDS ORDERED: modafiniL 100 MG TAB PO ONE (12:57)
--- NOTE | 2022-12-16 16:43 | Nephrology Progress Note ---
Date of Service December 16, 2022 Assessment & Plan Admission and Anticipated Discharge Date Admission Date: December 14, 2022 Subjective Assessment & Plan (1) Hyponatremia: She is known to have SIADH and had been advised for urea 15 gm bid with 1.5 fluid restriction and 20 mg lasix orally. - She received 2lit of fluid yesterday, her renal functions and sodium has improved. CK level is also trending down - Continue of 1.5 lit FFR , continue on BID 20 mg lasix, Continue urea 15 mg biD while inpt. 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 Na up to 134 now. Physical Exam Physical Exam: General: Alert, orientedx3. Skin: facial bruising and swelling noted on left face, left elbow with some erythema. Psych: Appropriate mood and affect Neuro: difficulty moving her left arm HEENT: facial bruising and swelling noted on left face CV: RRR, Normal s1, s2. Resp: no increased effort of breathing. Abdomen: Soft, nontender Extremities: Some edema in lower extremities bilaterally Results & Data Vital Signs (Past 12 Hours) Vital Signs Temp Pulse Pulse Resp BP BP Pulse Ox 12/16/22 15:19 36.6 C 84 18 133/74 95 12/16/22 12:12 36.8 C 93 H 18 122/75 98 12/16/22 08:00 76 12/16/22 07:31 36.5 C 82 18 121/79 97 O2 Del Method 12/16/22 15:19 Room Air 12/16/22 12:12 Room Air 12/16/22 08:00 12/16/22 07:31 Room Air
[2022-12-16] MEDS ORDERED: MELATONIN 3 MG TAB PO PRN (20:55)
[2022-12-16] MEDS: amLODIPine BESYLATE 5 MG TAB PO SCH (21:51)
[2022-12-16] MEDS: ASPIRIN 81 MG ECTAB PO SCH (21:51)
[2022-12-16] MEDS: TOPIRAMATE 100 MG TAB PO SCH (21:51)
[2022-12-16] MEDS: ATORVASTATIN 40 MG TAB PO SCH (21:51)
[2022-12-17] MEDS: SODIUM CHLORIDE 0.9% 1000ML 1,000 ML IV SCH ×3 (06:34→21:16)
[2022-12-17] MEDS: PANTOprazole 40 MG TAB PO SCH (06:37)
[2022-12-17] MEDS: LEVOTHYROXINE SODIUM 112 MCG TABLET PO SCH (06:37)
[2022-12-17] MEDS: FUROSEMIDE 20 MG TAB PO SCH ×2 (06:37→08:37)
[2022-12-17 07:08] LABS: Hematocrit (blood only) 25.7 % (37.0-47.0); Hemoglobin 8.7 g/dl (12.0-16.0); Mean Corpuscular Hemoglobin 31.4 pg (25.0-34.0); Mean Corpuscular Hgb Conc 33.9 g/dL (32.0-36.0); Mean Corpuscular Volume 92.8 fL (80.0-100.0); Platelet Count 181 K/uL (130-400); RDW Standard Deviation 44.1 fL (36.4-46.3); Red Blood Count 2.77 M/uL (4.20-5.40); White Blood Count 5.49 K/ul (4.8-10.8)
[2022-12-17 07:45] LABS: Calcium 8.7 mg/dl (8.6-10.3); Creatinine Clr Calc Pharmacy 35.5 ml/min; Est GFR (African American) 53.3 ml/min; Magnesium 1.5 mg/dl (1.7-2.4); Phosphorus 2.8 mg/dl (2.5-4.9); Potassium 3.7 mmol/L (3.5-5.1)
[2022-12-17] MEDS: PYRIDOXINE HCL 50 MG TAB PO SCH (08:37)
[2022-12-17] MEDS: MAGNESIUM OXIDE 400 MG TAB PO SCH ×2 (08:37→20:06)
[2022-12-17] MEDS: OXcarbazepine 150 MG TABLET PO SCH ×2 (08:37→20:03)
[2022-12-17] MEDS: TOPIRAMATE 50 MG TAB PO SCH ×2 (08:37→14:02)
[2022-12-17] MEDS: APIXABAN 5 MG TABLET PO SCH ×2 (08:37→20:04)
[2022-12-17] MEDS: EZETIMIBE 10 MG TAB PO SCH (08:37)
[2022-12-17] MEDS: lisinopril 20 MG TAB PO SCH (08:37)
[2022-12-17] MEDS: METOPROLOL SUCC 25MG EXT REL TAB PO SCH (08:37)
[2022-12-17] MEDS: INSULIN ASPART PER UNIT CHARGE SC SCH ×4 (08:38→20:05)
[2022-12-17] MEDS: CHOLECALCIFEROL 5,000 UNITS 125 MCG TAB PO SCH (08:38)
[2022-12-17] MEDS: UREA (UREA-NA) 15 GM PACK PO SCH (08:38)
[2022-12-17] MEDS: BACITRACIN OINT 14 GM TUBE EXT SCH ×3 (08:38→20:03)
[2022-12-17] MEDS: DOCUSATE SODIUM 100 MG CAP PO SCH (08:38)
--- NOTE | 2022-12-17 10:54 | Hospitalist Progress Note ---
Date of Service December 17, 2022 Assessment & Plan (1) Fall: Plan: mechanical fall at home while ambulating with her walker, PT/OT. Patient may be fine with temporary rehab, but does not want to transition to assisted living. PT/OT recommends rehab. Will discuss options wtih CM tomorrow. (2) Rhabdomyolysis: Plan: Nontraumatic rhabdomyolysis with prolonged time down on the floor. CK and renal function improved wtih IVF (3) Acute urinary retention: Plan: Cont patel catheter for now with TOV once she is up and moving around more. Renal function improved back to normal. (4) Hyponatremia: Plan: Known h/o SIADH. Na improved with urea, 1500ml Fluid restriction and Lasix 20mg bid. Stop urea per nephrology. Cont fluid restriction and lasix. (5) Acute kidney injury superimposed on CKD: Plan: Baseline creat 1.2-1.4, Improved with IVF and placement of patel catheter for urinary retention. (6) Coronary artery disease: Plan: chronic, stable. No evidence of ACS, however, with demand ischemia in response to stress, outpatient pharmacologic stress test is recommended post discharge. (7) Demand ischemia: Plan: plan as noted above. Echo performed this admission with no acute wall motion abnormalities. Cont current treatment for rhabdomyolysis. (8) Chronic pain: Plan: Patient is on trileptal 450mg BID, which was stopped on discharge after recent hospitalization (10/30/22) for severe hyponatremia 2/2 SIADH. She started it again recently per PCP notes as it reportedly helps her chronic pain. This has a known side effect of hyponatremia, especially when taken in combination with diuretics (she is on Lasix). This may be contributing to her current hyponatremia but she feels this is important for controlling her pain. She is also taking Topamax with max dose 400mg per day, which she is on. Given renal dysfunction and GFR<70, will cont this at 50% dose per guidelines. (9) Facial abrasion: Plan: Pressure injury vs mild abrasion to face from sliding across the floor. Cont bacitracin ointment and keep uncovered. Appreciate wound RN demetri and recs. No evidence of superficial infection so ceftriaxone was stopped. (10) DMII (diabetes mellitus, type 2): Plan: chronic, controlled with A1C 5.4. She was hypoglycemic this morning and glargine was stopped. (11) Hypothyroidism: Plan: chronic, stable. Cont Synthroid per home regimen. (12) Hyperlipidemia: Plan: chronic, stable. Cont atorvastatin, icosapent and zetia per home regimen. (13) Carotid artery stenosis: Plan: chronic, stable. Cont medical management. DVT proph-Eliquis Full Code Dispo-uncertain, rehab recommended, however, patient is concerned that her benefits have run out. She lives alone with little to no support in the area. Case management to assist after the weekend. I spent a total [id number] coordinating, documenting, and providing care for this patient excluding time spent in the performance of separately billed services Maranda Morales DO [facility] and Anticipated Discharge Date Admission Date: December 14, 2022 Subjective 77 yo F admitted for mechanical fall and prolonged immobility resulting in nontraumatic rhabdomyolysis She reports feeling ok but is still upset about getting "baby food" I explained to her that we can adjust the order to be a regular diet She said the original pain in her mouth is almost gone. She states that her left leg is in pain from the posterior wound. This was evaluated and is dry with no surrounding erythema facial abrasion is healing. Review of Systems Review of Systems: All systems were reviewed and negative except as indicated on HPI above. Physical Exam Physical Exam: CONSTITUTIONAL: obese, vitals as above, generally well-appearing, NAD EYES: , some periorbital swelling as an extension of the cheek swelling and facial injury -pressure injury vs abrasion--on the left side ,normal conjunctivae, no scleral icterus ENT: external ear and nose normal, oropharynx clear, MMM NECK: trachea midline, RESPIRATORY: clear to auscultation bilaterally, no crackles, rales or wheezes, normal respiratory effort CARDIOVASCULAR: regular rate and rhythm, S1 and 2 heard without murmurs, gallops or rubs, no JVD, no peripheral edema CHEST: inspection of chest was normal GASTROINTESTINAL: soft, nontender, ND no guarding MUSCULOSKELETAL: strength 5/5 throughout, head is normocephalic and atraumatic SKIN: warm and dry, face as above. NEUROLOGIC: CN 2-12 grossly intact, no sensory deficit, normal cognition, normal speech, no tremor PSYCHIATRIC: alert cooperative and oriented to person, place and time. Euthymic mood, makes good eye contact, language grossly intact, recent and remote memory grossly intact. Results & Data Results & Data Vital Signs (Past 12 Hours) Vital Signs Temp Pulse Pulse Resp BP Pulse Ox O2 Del Method 12/17/22 09:11 76 12/17/22 08:17 36.6 C 80 18 173/80 H 98 Room Air 12/17/22 03:14 36.5 C 82 18 120/63 97 Room Air Laboratory Results Short CBC 12/17/22 Range/Units 06:19 WBC 5.49 (4.8-10.8) K/ul Hgb 8.7 L (12.0-16.0) g/dl Hct 25.7 L (37.0-47.0) % Plt Count 181 (130-400) K/uL BMP 12/17/22 06:19 Sodium 134 L Potassium 3.7 D Chloride 108 H Carbon Dioxide 21 BUN 57 H Creatinine 1.14 D Glucose 78 Calcium 8.7 Cardiac Enzymes 12/17/22 Range/Units 06:19 Total Creatine Kinase 503 H (26-192) U/L Medications Administered Current Inpatient Medications Acetaminophen (Acetaminophen 325 Mg Tab) 650 mg PO Q4H PRN PRN Reason: Pain or Fever Stop: 01/13/23 12:19 Last Admin: 12/15/22 22:17 Dose: 650 mg Amlodipine Besylate (Amlodipine Besylate 5 Mg Tab) 2.5 mg PO PM [facility]JA Stop: 01/13/23 20:59 Last Admin: 12/16/22 21:51 Dose: 2.5 mg Apixaban (Apixaban 5 Mg Tablet) 5 mg PO BID [facility] Stop: 01/14/23 08:59 Last Admin: 12/17/22 08:37 Dose: 5 mg Aspirin (Aspirin 81 Mg Ectab) 81 mg PO PM [facility] Stop: 01/14/23 20:59 Last Admin: 12/16/22 21:51 Dose: 81 mg Atorvastatin Calcium (Atorvastatin 40 Mg Tab) 80 mg PO PM [facility] Stop: 01/13/23 20:59 Last Admin: 12/16/22 21:51 Dose: 80 mg Bacitracin (Bacitracin Oint 14 Gm Tube) 1 appln EXT TID [facility] Stop: 01/16/23 08:59 Last Admin: 12/17/22 08:38 Dose: 1 appln Dextrose (Dextrose 50% 50 Ml Syringe) 25 - 50 ml IV UD PRN; Protocol PRN Reason: Hypoglycemia Protocol Stop: 01/13/23 14:06 Docusate Sodium (Docusate Sodium 100 Mg Cap) 100 mg PO DAILY [facility] Stop: 01/14/23 08:59 Last Admin: 12/17/22 08:38 Dose: 100 mg Ezetimibe (Ezetimibe 10 Mg Tablet) 10 mg PO QAM [facility] Stop: 01/14/23 08:59 Last Admin: 12/17/22 08:37 Dose: 10 mg Furosemide (Furosemide 20 Mg Tab) 20 mg PO DAILY@0700,1200 [facility] Stop: 01/14/23 06:59 Last Admin: 12/17/22 08:37 Dose: 20 mg Glucagon (Glucagon For Inj 1 Mg Vial) 1 mg SQ UD PRN; Protocol PRN Reason: Hypoglycemia Protocol Stop: 01/13/23 14:06 Glucose (Glucose 10 Tab/Tube) 4 - 8 tab PO UD PRN; Protocol PRN Reason: Hypoglycemia Treatment Stop: 01/13/23 14:06 Glucose (Glucose 40% Gel 15 Gm Tube) 15 - 30 gm PO UD PRN; Protocol PRN Reason: Hypoglycemia Protocol Stop: 01/13/23 14:06 Hydromorphone HCl (Hydromorphone Inj 0.5 Mg/0.5 Ml Syr) 0.25 mg IV Q4H PRN PRN Reason: Severe Pain (Scale 7, 8, 9,10) Stop: 12/28/22 14:06 Sodium Chloride (Nss 1000ml) 1,000 mls @ 80 mls/hr IV .[id number] [facility] Stop: 01/13/23 20:14 Last Admin: 12/17/22 08:38 Dose: 80 mls/hr Insulin Aspart (Insulin Aspart Per Unit Charge) 0 units SC ACHS [facility] Stop: 01/13/23 16:29 Last Admin: 12/17/22 08:38 Dose: Not Given Levothyroxine Sodium (Levothyroxine Sodium 112 Mcg Tablet) 112 mcg PO DAILYBB [facility] Stop: 01/14/23 06:29 Last Admin: 12/17/22 06:37 Dose: 112 mcg Lisinopril (Lisinopril 20 Mg Tab) 20 mg PO QAM [facility] Stop: 01/14/23 08:59 Last Admin: 12/17/22 08:37 Dose: 20 mg Magnesium Oxide (Magnesium Oxide 400 Mg Tab) 400 mg PO BID [facility] Stop: 01/13/23 20:59 Last Admin: 12/17/22 08:37 Dose: 400 mg Melatonin (Melatonin 3 Mg Tab) 3 mg PO HS PRN PRN Reason: Sleep Stop: 01/15/23 20:54 Metoprolol Succinate (Metoprolol Succ 25mg Ext Rel Tab) 25 mg PO QAM [facility] Stop: 01/14/23 08:59 Last Admin: 12/17/22 08:37 Dose: 25 mg Miscellaneous (Vascepa- Order Awaiting Action) 1 each N/A QS [facility] Stop: 01/13/23 15:59 Last Admin: 12/17/22 08:38 Dose: Not Given Miscellaneous (Carbohydrates For Hypoglycemia ) 15 - 30 gm PO UD PRN PRN Reason: Hypoglycemia Protocol Stop: 01/13/23 14:06 Ondansetron HCl (Ondansetron Inj 2 Mg/Ml 2 Ml Vial) 4 mg IV Q6H PRN PRN Reason: Nausea Stop: 01/13/23 12:19 Last Admin: 12/14/22 13:38 Dose: 4 mg Oxcarbazepine (Oxcarbazepine 150 Mg Tablet) 450 mg PO BID [facility] Stop: 01/13/23 20:59 Last Admin: 12/17/22 08:37 Dose: 450 mg Pantoprazole Sodium (Pantoprazole 40 Mg Tab) 40 mg PO DAILYBB [facility] Stop: 01/14/23 06:29 Last Admin: 12/17/22 06:37 Dose: 40 mg Polyethylene Glycol (Polyethylene (Miralax) 17 Gm Pack) 17 gm PO DAILY PRN PRN Reason: Constipation Stop: 01/13/23 12:19 Pyridoxine HCl (Pyridoxine Hcl 50 Mg Tab) 250 mg PO DAILY@1200 [facility] Stop: 01/14/23 11:59 Last Admin: 12/17/22 08:37 Dose: 250 mg Topiramate (Topiramate 50 Mg Tab) 50 mg PO BID@0900,1200 [facility] Stop: 01/15/23 08:59 Last Admin: 12/17/22 08:37 Dose: 50 mg Topiramate (Topiramate 100 Mg Tab) 100 mg PO HS [facility] Stop: 01/15/23 20:59 Last Admin: 12/16/22 21:51 Dose: 100 mg Urea (Urea (Urea-Na) 15 Gm Pack) 15 gm PO BID [facility] Stop: 01/14/23 15:04 Last Admin: 12/17/22 08:38 Dose: 15 gm Vitamin D (Cholecalciferol 5,000 Units 125 Mcg Tab) 5,000 units PO DAILY@1200 [facility] Stop: 01/14/23 11:59 Last Admin: 12/17/22 08:38 Dose: 5,000 units (1) Fall Encounter type: subsequent encounter Qualified Code(s): W19.XXXD - Unspecified fall, subsequent encounter (2) Rhabdomyolysis Rhabdomyolysis type: non-traumatic Qualified Code(s): M62.82 - Rhabdomyolysis
--- NOTE | 2022-12-17 12:11 | Nephrology Progress Note ---
Date of Service December 17, 2022 Assessment & Plan Admission and Anticipated Discharge Date Admission Date: December 14, 2022 Subjective Assessment & Plan (1) Hyponatremia: She is known to have SIADH and had been advised for urea 15 gm bid with 1.5 fluid restriction and 20 mg lasix orally. Continue of 1.5 lit FFR , continue on BID 20 mg lasix, Will stop urea now. very hard to use this drug intermediate as outpt--Cost/insurance/taste/excessive BUN increase S--feeling better now. Na stable at 134 now. Physical Exam Physical Exam: General: Alert, orientedx3. Skin: facial bruising and swelling noted on left face, left elbow with some erythema. Psych: Appropriate mood and affect Neuro: difficulty moving her left arm HEENT: facial bruising and swelling noted on left face CV: RRR, Normal s1, s2. Resp: no increased effort of breathing. Abdomen: Soft, nontender Extremities: Some edema in lower extremities bilaterally Results & Data Vital Signs (Past 12 Hours) Vital Signs Temp Pulse Pulse Resp BP Pulse Ox O2 Del Method 12/17/22 12:06 36.7 C 84 18 166/75 H 96 Room Air 12/17/22 09:11 76 12/17/22 08:17 36.6 C 80 18 173/80 H 98 Room Air 12/17/22 03:14 36.5 C 82 18 120/63 97 Room Air
[2022-12-17] MEDS: MAGNESIUM SULFATE / D5W 1 GM/100 ML BAG IV SCH ×4 (14:01→18:30)
[2022-12-17] MEDS: ASPIRIN 81 MG ECTAB PO SCH (20:03)
[2022-12-17] MEDS: ATORVASTATIN 40 MG TAB PO SCH (20:03)
[2022-12-17] MEDS: TOPIRAMATE 100 MG TAB PO SCH (20:04)
[2022-12-17] MEDS: amLODIPine BESYLATE 5 MG TAB PO SCH (20:05)
[2022-12-18] MEDS: LEVOTHYROXINE SODIUM 112 MCG TABLET PO SCH (06:13)
[2022-12-18] MEDS: PANTOprazole 40 MG TAB PO SCH (06:13)
[2022-12-18 06:34] LABS: Hematocrit (blood only) 26.7 % (37.0-47.0); Hemoglobin 9.1 g/dl (12.0-16.0); Mean Corpuscular Hemoglobin 31.3 pg (25.0-34.0); Mean Corpuscular Hgb Conc 34.1 g/dL (32.0-36.0); Mean Corpuscular Volume 91.8 fL (80.0-100.0); Mean Platelet Volume 10.8 fL (9.4-12.4); Platelet Count 199 K/uL (130-400); RDW Coefficient of Variation 12.9 % (11.5-14.5); RDW Standard Deviation 42.8 fL (36.4-46.3); Red Blood Count 2.91 M/uL (4.20-5.40); White Blood Count 3.99 K/ul (4.8-10.8)
[2022-12-18 06:51] LABS: BUN Creatinine Ratio 36.1 (10-20); Calcium 8.7 mg/dl (8.6-10.3); Creatinine Clr Calc Pharmacy 37.6 ml/min; Est GFR (African American) 56.9 ml/min; Est GFR (Non-African American) 49.1 ml/min; Potassium 3.7 mmol/L (3.5-5.1)
[2022-12-18] MEDS: EZETIMIBE 10 MG TAB PO SCH (08:53)
[2022-12-18] MEDS: METOPROLOL SUCC 25MG EXT REL TAB PO SCH (08:53)
[2022-12-18] MEDS: OXcarbazepine 150 MG TABLET PO SCH ×2 (08:53→20:07)
[2022-12-18] MEDS: FUROSEMIDE 20 MG TAB PO SCH ×2 (08:53→12:31)
[2022-12-18] MEDS: APIXABAN 5 MG TABLET PO SCH ×2 (08:54→20:06)
[2022-12-18] MEDS: BACITRACIN OINT 14 GM TUBE EXT SCH ×2 (08:54→20:09)
[2022-12-18] MEDS: lisinopril 20 MG TAB PO SCH (08:54)
[2022-12-18] MEDS: TOPIRAMATE 50 MG TAB PO SCH ×2 (08:54→11:43)
[2022-12-18] MEDS: MAGNESIUM OXIDE 400 MG TAB PO SCH ×2 (08:54→20:07)
--- NOTE | 2022-12-18 09:11 | Hospitalist Progress Note ---
Date of Service December 18, 2022 Assessment & Plan (1) Fall: Plan: mechanical fall at home while ambulating with her walker, PT/OT. Patient may be fine with temporary rehab, but does not want to transition to assisted living. PT/OT recommends rehab. She must be able to at least transfer independently prior to going home. Noted that she has home health to assist and she has a wheelchair. Current level of weakness is too unsafe to be alone. (2) Rhabdomyolysis: Plan: Nontraumatic rhabdomyolysis with prolonged time down on the floor. CK and renal function improved wtih IVF-resolved. (3) Acute urinary retention: Plan: Cont patel catheter for now with TOV once she is up and moving around more. Renal function improved back to normal. (4) Hyponatremia: Plan: Known h/o SIADH. Na improved with urea, 1500ml Fluid restriction and Lasix 20mg bid. Stop urea per nephrology. Cont fluid restriction and lasix. (5) Acute kidney injury superimposed on CKD: Plan: Baseline creat 1.2-1.4, Improved with IVF and placement of patel catheter for urinary retention. rEsolved. (6) Coronary artery disease: Plan: chronic, stable. No evidence of ACS, however, with demand ischemia in response to stress, outpatient pharmacologic stress test is recommended post discharge. (7) Demand ischemia: Plan: plan as noted above. Echo performed this admission with no acute wall motion abnormalities. (8) Chronic pain: Plan: Patient is on trileptal 450mg BID, which was stopped on discharge after recent hospitalization (10/30/22) for severe hyponatremia 2/2 SIADH. She started it again recently per PCP notes as it reportedly helps her chronic pain. This has a known side effect of hyponatremia, especially when taken in combination with diuretics (she is on Lasix). This may be contributing to her current hyponatremia but she feels this is important for controlling her pain. She is also taking Topamax with max dose 400mg per day, which she is on. Given renal dysfunction and GFR<70, will cont this at 50% dose per guidelines. (9) Facial abrasion: Plan: Pressure injury vs mild abrasion to face from sliding across the floor. Cont bacitracin ointment and keep uncovered. Appreciate wound RN eval and recs. No evidence of superficial infection so ceftriaxone was stopped. (10) DMII (diabetes mellitus, type 2): Plan: chronic, controlled with A1C 5.4. Cont current therapy. (11) Hypothyroidism: Plan: chronic, stable. Cont Synthroid per home regimen. (12) Hyperlipidemia: Plan: chronic, stable. Cont atorvastatin, icosapent and zetia per home regimen. (13) Carotid artery stenosis: Plan: chronic, stable. Cont medical management. DVT proph-Eliquis Full Code Dispo-uncertain, she must transfer independently prior to returning home alone. I spent a total [id number] coordinating, documenting, and providing care for this patient excluding time spent in the performance of separately billed services Maranda [facility]ales DO [facility] Ad[facility] and Anticipated Discharge Date Admission Date: December 14, 2022 Subjective 77 yo F admitted for mechanical fall and prolonged immobility resulting in nontraumatic rhabdomyolysis Feeling better today Notes the wound nurse put something on her left leg wound that is improving how she feels. She understands that in order to go home she will have to transfer independently at a minimum as that was her baseline. She was a 2 assist to the potty chair today. We discussed a plan to ambuate her TID or at least OOB to chair for all meals. At least TID she should be asking for asisstance to get up and going. She understands her discharge goals and is motivated. I did contact her daughter today and explained my concerns about her going home in her current state. She verbalized understanding and states that mom won't go to rehab and she is "of sound mind and body and can make her own decisions" I explained that I understood and wanted to review her medical issues including important things to follow-up on such as the outpatient stress test. She said she was an RN and was with a patient. I asked if we could chat later and she said she was off tomorrow. Review of Systems Review of Systems: All systems were reviewed and negative except as indicated on HPI above. Physical Exam Physical Exam: CONSTITUTIONAL: obese, vitals as above, generally well-appearing, NAD EYES: , some periorbital swelling as an extension of the cheek swelling and facial injury -pressure injury vs abrasion--on the left side ,normal conjunctivae, no scleral icterus ENT: external ear and nose normal, oropharynx clear, MMM NECK: trachea midline, RESPIRATORY: clear to auscultation bilaterally, no crackles, rales or wheezes, normal respiratory effort CARDIOVASCULAR: regular rate and rhythm, S1 and 2 heard without murmurs, gallops or rubs, no JVD, no peripheral edema CHEST: inspection of chest was normal GASTROINTESTINAL: soft, nontender, ND no guarding MUSCULOSKELETAL: strength 5/5 throughout, head is normocephalic and atraumatic SKIN: warm and dry, face as above. NEUROLOGIC: CN 2-12 grossly intact, no sensory deficit, normal cognition, normal speech, no tremor PSYCHIATRIC: alert cooperative and oriented to person, place and time. Euthymic mood, makes good eye contact, language grossly intact, recent and remote memory grossly intact. Results & Data Results & Data Vital Signs (Past 12 Hours) Vital Signs Temp Pulse Pulse Resp BP Pulse Ox O2 Del Method 12/18/22 07:55 75 12/18/22 07:35 36.7 C 76 16 160/75 H 94 Room Air 12/18/22 03:54 36.6 C 76 18 149/66 H 96 Room Air 12/18/22 01:49 Room Air 12/17/22 23:49 87 12/17/22 23:07 36.5 C 88 18 147/71 H 95 Room Air Laboratory Results Short CBC 12/18/22 Range/Units 05:54 WBC 3.99 L (4.8-10.8) K/ul Hgb 9.1 L (12.0-16.0) g/dl Hct 26.7 L (37.0-47.0) % Plt Count 199 (130-400) K/uL BMP 12/18/22 05:54 Sodium 137 Potassium 3.7 Chloride 108 H Carbon Dioxide 24 BUN 39 H Creatinine 1.08 Glucose 87 Calcium 8.7 Medications Administered Current Inpatient Medications Acetaminophen (Acetaminophen 325 Mg Tab) 650 mg PO Q4H PRN PRN Reason: Pain or Fever Stop: 01/13/23 12:19 Last Admin: 12/15/22 22:17 Dose: 650 mg Amlodipine Besylate (Amlodipine Besylate 5 Mg Tab) 2.5 mg PO PM [facility] Stop: 01/13/23 20:59 Last Admin: 12/17/22 20:05 Dose: 2.5 mg Apixaban (Apixaban 5 Mg Tablet) 5 mg PO BID [facility] Stop: 01/14/23 08:59 Last Admin: 12/18/22 08:54 Dose: 5 mg Aspirin (Aspirin 81 Mg Ectab) 81 mg PO PM [facility] Stop: 01/14/23 20:59 Last Admin: 12/17/22 20:03 Dose: 81 mg Atorvastatin Calcium (Atorvastatin 40 Mg Tab) 80 mg PO PM [facility] Stop: 01/13/23 20:59 Last Admin: 12/17/22 20:03 Dose: 80 mg Bacitracin (Bacitracin Oint 14 Gm Tube) 1 appln EXT BID [facility] Stop: 01/17/23 20:59 Dextrose (Dextrose 50% 50 Ml Syringe) 25 - 50 ml IV UD PRN; Protocol PRN Reason: Hypoglycemia Protocol Stop: 01/13/23 14:06 Docusate Sodium (Docusate Sodium 100 Mg Cap) 100 mg PO DAILY [facility] Stop: 01/14/23 08:59 Last Admin: 12/17/22 08:38 Dose: 100 mg Ezetimibe (Ezetimibe 10 Mg Tablet) 10 mg PO QAM [facility] Stop: 01/14/23 08:59 Last Admin: 12/18/22 08:53 Dose: 10 mg Furosemide (Furosemide 20 Mg Tab) 20 mg PO DAILY@0700,1200 [facility] Stop: 01/14/23 06:59 Last Admin: 12/18/22 08:53 Dose: 20 mg Glucagon (Glucagon For Inj 1 Mg Vial) 1 mg SQ UD PRN; Protocol PRN Reason: Hypoglycemia Protocol Stop: 01/13/23 14:06 Glucose (Glucose 10 Tab/Tube) 4 - 8 tab PO UD PRN; Protocol PRN Reason: Hypoglycemia Treatment Stop: 01/13/23 14:06 Glucose (Glucose 40% Gel 15 Gm Tube) 15 - 30 gm PO UD PRN; Protocol PRN Reason: Hypoglycemia Protocol Stop: 01/13/23 14:06 Hydromorphone HCl (Hydromorphone Inj 0.5 Mg/0.5 Ml Syr) 0.25 mg IV Q4H PRN PRN Reason: Severe Pain (Scale 7, 8, 9,10) Stop: 12/28/22 14:06 Insulin Aspart (Insulin Aspart Per Unit Charge) 0 units SC ACHS [facility] Stop: 01/13/23 16:29 Last Admin: 12/17/22 20:05 Dose: Not Given Levothyroxine Sodium (Levothyroxine Sodium 112 Mcg Tablet) 112 mcg PO DAILYBB [facility] Stop: 01/14/23 06:29 Last Admin: 12/18/22 06:13 Dose: 112 mcg Lisinopril (Lisinopril 20 Mg Tab) 20 mg PO QAM [facility] Stop: 01/14/23 08:59 Last Admin: 12/18/22 08:54 Dose: 20 mg Magnesium Oxide (Magnesium Oxide 400 Mg Tab) 400 mg PO BID [facility] Stop: 01/13/23 20:59 Last Admin: 12/18/22 08:54 Dose: 400 mg Melatonin (Melatonin 3 Mg Tab) 3 mg PO HS PRN PRN Reason: Sleep Stop: 01/15/23 20:54 Metoprolol Succinate (Metoprolol Succ 25mg Ext Rel Tab) 25 mg PO QAM [facility] Stop: 01/14/23 08:59 Last Admin: 12/18/22 08:53 Dose: 25 mg Miscellaneous (Vascepa- Order Awaiting Action) 1 each N/A QS [facility] Stop: 01/13/23 15:59 Last Admin: 12/18/22 01:09 Dose: Not Given Miscellaneous (Carbohydrates For Hypoglycemia ) 15 - 30 gm PO UD PRN PRN Reason: Hypoglycemia Protocol Stop: 01/13/23 14:06 Ondansetron HCl (Ondansetron Inj 2 Mg/Ml 2 Ml Vial) 4 mg IV Q6H PRN PRN Reason: Nausea Stop: 01/13/23 12:19 Last Admin: 12/14/22 13:38 Dose: 4 mg Oxcarbazepine (Oxcarbazepine 150 Mg Tablet) 450 mg PO BID [facility] Stop: 01/13/23 20:59 Last Admin: 12/18/22 08:53 Dose: 450 mg Pantoprazole Sodium (Pantoprazole 40 Mg Tab) 40 mg PO DAILYBB [facility] Stop: 01/14/23 06:29 Last Admin: 12/18/22 06:13 Dose: 40 mg Polyethylene Glycol (Polyethylene (Miralax) 17 Gm Pack) 17 gm PO DAILY PRN PRN Reason: Constipation Stop: 01/13/23 12:19 Pyridoxine HCl (Pyridoxine Hcl 50 Mg Tab) 250 mg PO DAILY@1200 [facility] Stop: 01/14/23 11:59 Last Admin: 12/17/22 08:37 Dose: 250 mg Topiramate (Topiramate 50 Mg Tab) 50 mg PO BID@0900,1200 [facility] Stop: 01/15/23 08:59 Last Admin: 12/18/22 08:54 Dose: 50 mg Topiramate (Topiramate 100 Mg Tab) 100 mg PO HS [facility] Stop: 01/15/23 20:59 Last Admin: 12/17/22 20:04 Dose: 100 mg Vitamin D (Cholecalciferol 5,000 Units 125 Mcg Tab) 5,000 units PO DAILY@1200 [facility] Stop: 01/14/23 11:59 Last Admin: 12/17/22 08:38 Dose: 5,000 units (1) Fall Encounter type: subsequent encounter Qualified Code(s): W19.XXXD - Unspecified fall, subsequent encounter (2) Rhabdomyolysis Rhabdomyolysis type: non-traumatic Qualified Code(s): M62.82 - Rhabdomyolysis
[2022-12-18] MEDS: INSULIN ASPART PER UNIT CHARGE SC SCH ×4 (09:20→21:41)
[2022-12-18] MEDS: DOCUSATE SODIUM 100 MG CAP PO SCH (09:24)
[2022-12-18] MEDS: ACETAMINOPHEN 325 MG TAB PO PRN (10:28)
[2022-12-18] MEDS: CHOLECALCIFEROL 5,000 UNITS 125 MCG TAB PO SCH (11:43)
[2022-12-18] MEDS: PYRIDOXINE HCL 50 MG TAB PO SCH (11:43)
--- NOTE | 2022-12-18 16:46 | Nephrology Progress Note ---
Date of Service December 18, 2022 Assessment & Plan (1) Hyponatremia: Plan: She is known to have SIADH and had been advised for urea 15 gm bid with 1.5 fluid restriction and 20 mg 2 doses daily lasix orally. -continue lasix 20 mg 2 daily doses at least 4h apart and 1.5L FR -daily BMP -no need a t this time for urea -maintain eukalemia > will give 10 mEq K daily to start Admission and Anticipated Discharge Date Admission Date: December 14, 2022 Subjective has bee OOB /wo asst to bedside commode seh states; no sob, no n/v; some pain ongoing L shoulder, neck Review of Systems Review of Systems: All systems reviewed & are unremarkable except as noted in Subjective Physical Exam Constitutional: well developed and well nourished Eyes: EOM intact bilaterally ENMT: Ears: no external ear abnormality Nose: no external nose abnormality Mouth: + dry oral mucous membranes Neck: no nuchal rigidity Respiratory: normal respiratory effort Auscultation: + diminished lung sounds Cardiovascular: RRR, no murmur, no edema Gastrointestinal (Abdomen): Inspection/Auscultation: normal bowel sounds Percussion/Palpation: abdomen soft; abdomen nontender Musculoskeletal: Extremities: strength 5/5 throughout Skin: no rashes, warm and dry large L facial healing abrasion Neurologic: aaron, fluent speech, no tremor Psychiatric: Orientation: alert and oriented x 3 Speech: normal rate/rhythm/volume of speech Results & Data Vital Signs (Past 12 Hours) Vital Signs Temp Pulse Pulse Resp BP BP Pulse Ox 12/18/22 15:54 84 12/18/22 14:52 36.6 C 89 18 121/69 94 12/18/22 11:04 36.5 C 77 16 163/71 H 95 12/18/22 07:55 75 12/18/22 07:35 36.7 C 76 16 160/75 H 94 O2 Del Method 12/18/22 15:54 12/18/22 14:52 Room Air 12/18/22 11:04 Room Air 12/18/22 07:55 12/18/22 07:35 Room Air Laboratory Results 12/18/22 05:54 12/18/22 05:54
[2022-12-18] MEDS: POTASSIUM CHLORIDE 10 MEQ TABCR PO SCH (18:01)
[2022-12-18] MEDS: ASPIRIN 81 MG ECTAB PO SCH (20:05)
[2022-12-18] MEDS: TOPIRAMATE 100 MG TAB PO SCH (20:05)
[2022-12-18] MEDS: amLODIPine BESYLATE 5 MG TAB PO SCH (20:05)
[2022-12-18] MEDS: ATORVASTATIN 40 MG TAB PO SCH (20:07)
[2022-12-19] MEDS: PANTOprazole 40 MG TAB PO SCH (06:01)
[2022-12-19] MEDS: FUROSEMIDE 20 MG TAB PO SCH ×2 (06:01→12:33)
[2022-12-19] MEDS: LEVOTHYROXINE SODIUM 112 MCG TABLET PO SCH (06:01)
[2022-12-19] MEDS: OXcarbazepine 150 MG TABLET PO SCH ×2 (07:56→20:41)
[2022-12-19] MEDS: POTASSIUM CHLORIDE 10 MEQ TABCR PO SCH (07:56)
[2022-12-19] MEDS: TOPIRAMATE 50 MG TAB PO SCH ×2 (07:56→12:33)
[2022-12-19] MEDS: PYRIDOXINE HCL 50 MG TAB PO SCH (07:57)
[2022-12-19] MEDS: METOPROLOL SUCC 25MG EXT REL TAB PO SCH (07:57)
[2022-12-19] MEDS: APIXABAN 5 MG TABLET PO SCH ×2 (07:57→20:41)
[2022-12-19] MEDS: EZETIMIBE 10 MG TAB PO SCH (07:57)
[2022-12-19] MEDS: MAGNESIUM OXIDE 400 MG TAB PO SCH ×2 (07:57→20:41)
[2022-12-19] MEDS: lisinopril 20 MG TAB PO SCH (07:57)
[2022-12-19] MEDS: DOCUSATE SODIUM 100 MG CAP PO SCH (07:59)
[2022-12-19] MEDS: BACITRACIN OINT 14 GM TUBE EXT SCH ×2 (07:59→20:41)
[2022-12-19] MEDS: INSULIN ASPART PER UNIT CHARGE SC SCH ×4 (09:05→20:41)
--- NOTE | 2022-12-19 10:20 | Nephrology Progress Note ---
Date of Service December 19, 2022 Assessment & Plan (1) Hyponatremia: Plan: She is known to have SIADH and had been advised for urea 15 gm bid with 1.5 fluid restriction and 20 mg 2 doses daily lasix orally. -continue lasix 20 mg 2 daily doses at least 4h apart and 1.5L FR -daily BMP -no need a t this time for urea -maintain eukalemia > YESTERDAY started 10 mEq K daily >>ordered BMP ; await labs >> sodium remains wnl; renal function at baseline, K acceptable WILL SIGN OFF NEPHRO D/C RECS: -bmp to be ordered by neph RN and drawn w/in 2 wks of d/c -d/c on FR of 1.5L -d/c on lasix 20 mg daily and K 10 mEq daily -for now no specific neph hospital d/c appt needed; pls keep routine neph f/u Admission and Anticipated Discharge Date Admission Date: December 14, 2022 Subjective no acute interval events. walked today w/ PT; hoping to avoid rehab or asst living. still w/ L ankle tenderness. no sob, no n/v. 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 Review of Systems Review of Systems: All systems reviewed & are unremarkable except as noted in Subjective Physical Exam Constitutional: well developed and well nourished Eyes: EOM intact bilaterally ENMT: Ears: no external ear abnormality Nose: no external nose abnormality Mouth: + dry oral mucous membranes Neck: no nuchal rigidity Respiratory: normal respiratory effort Auscultation: + diminished lung sounds Cardiovascular: RRR, no murmur, no edema Gastrointestinal (Abdomen): Inspection/Auscultation: normal bowel sounds Percussion/Palpation: abdomen soft; abdomen nontender Musculoskeletal: Extremities: strength 5/5 throughout Skin: no rashes, warm and dry wounds L ankle lateral and abrasions healing L face Psychiatric: Orientation: alert and oriented x 3 Speech: normal rate/rhythm/volume of speech Genitourinary: patel present w/ ample yellow urine Results & Data Vital Signs (Past 12 Hours) Vital Signs Temp Pulse Pulse Resp BP BP Pulse Ox 12/19/22 07:50 36.6 C 75 18 138/71 97 12/19/22 07:27 79 12/19/22 03:30 36.6 C 79 14 137/70 96 12/19/22 00:51 36.7 C 80 20 133/71 94 12/18/22 23:06 82 O2 Del Method 12/19/22 07:50 Room Air 12/19/22 07:27 12/19/22 03:30 Room Air 12/19/22 00:51 Room Air 12/18/22 23:06 Laboratory Results NONE NEW
[2022-12-19 11:27] LABS: BUN Creatinine Ratio 21.9 (10-20); Creatinine Clr Calc Pharmacy 35.6 ml/min; Est GFR (African American) 53.3 ml/min; Potassium 3.5 mmol/L (3.5-5.1)
[2022-12-19] MEDS: CHOLECALCIFEROL 5,000 UNITS 125 MCG TAB PO SCH (12:33)
--- NOTE | 2022-12-19 20:29 | Hospitalist Progress Note ---
Date of Service December 19, 2022 Assessment & Plan (1) Fall: Plan: mechanical fall at home while ambulating with her walker, PT/OT. Patient may be fine with temporary rehab, but does not want to transition to assisted living. PT/OT recommends rehab. She must be able to at least transfer independently prior to going home. Noted that she has home health to assist and she has a wheelchair. Current level of weakness is too unsafe to be alone. 12/19: she did well reportedly ambulated in the hallways today. Plan for Dc patel for TOV and consider sending her home (2) Rhabdomyolysis: Plan: Nontraumatic rhabdomyolysis with prolonged time down on the floor. CK and renal function improved wtih IVF-resolved. (3) Acute urinary retention: Plan: Renal function improved after Patel placement. Trial of void with bladder scans overnight. Ensure she is spontaneously urinating prior to discharge (4) Hyponatremia: Plan: Known h/o SIADH. Na improved with urea, 1500ml Fluid restriction and Lasix 20mg bid. Stop urea per nephrology. Cont fluid restriction and lasix. (5) Acute kidney injury superimposed on CKD: Plan: Baseline creat 1.2-1.4, Improved with IVF and placement of patel catheter for urinary retention. rEsolved. (6) Coronary artery disease: Plan: chronic, stable. No evidence of ACS, however, with demand ischemia in response to stress, outpatient pharmacologic stress test is recommended post discharge. (7) Demand ischemia: Plan: plan as noted above. Echo performed this admission with no acute wall motion abnormalities. (8) Chronic pain: Plan: Patient is on trileptal 450mg BID, which was stopped on discharge after recent hospitalization (10/30/22) for severe hyponatremia 2/2 SIADH. She started it again recently per PCP notes as it reportedly helps her chronic pain. This has a known side effect of hyponatremia, especially when taken in combination with diuretics (she is on Lasix). This may be contributing to her current hyponatremia but she feels this is important for controlling her pain. She is also taking Topamax with max dose 400mg per day, which she is on. Given renal dysfunction and GFR<70, will cont this at 50% dose per guidelines. (9) Facial abrasion: Plan: Pressure injury vs mild abrasion to face from sliding across the floor. Cont bacitracin ointment and keep uncovered. Appreciate wound RN demetri and recs. No evidence of superficial infection so ceftriaxone was stopped. (10) DMII (diabetes mellitus, type 2): Plan: chronic, controlled with A1C 5.4. Cont current therapy. (11) Hypothyroidism: Plan: chronic, stable. Cont Synthroid per home regimen. (12) Hyperlipidemia: Plan: chronic, stable. Cont atorvastatin, icosapent and zetia per home regimen. (13) Carotid artery stenosis: Plan: chronic, stable. Cont medical management. DVT proph-Eliquis Full Code Dispo-likely DC to home tomorrow as long as she is still moving well. Home health is already established in place. [facility] at home is in place. I spent a total [id number] coordinating, documenting, and providing care for this patient excluding time spent in the performance of separately billed services Maranda Morales DO [facility] Hospitalist Admission and Anticipated Discharge Date Admission Date: December 14, 2022 Subjective no acute interval events. walked today w/ PT; hoping to avoid rehab or asst living. still w/ L ankle tenderness. no sob, no n/v. 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 Physical Exam Physical Exam: CONSTITUTIONAL: obese, vitals as above, generally well-appearing, NAD EYES: , some periorbital swelling as an extension of the cheek swelling and facial injury -pressure injury vs abrasion--on the left side ,normal conjunctivae, no scleral icterus ENT: external ear and nose normal, oropharynx clear, MMM NECK: trachea midline, RESPIRATORY: clear to auscultation bilaterally, no crackles, rales or wheezes, normal respiratory effort CARDIOVASCULAR: regular rate and rhythm, S1 and 2 heard without murmurs, gall ops or rubs, no JVD, no peripheral edema CHEST: inspection of chest was normal GASTROINTESTINAL: soft, nontender, ND no guarding MUSCULOSKELETAL: strength 5/5 throughout, head is normocephalic and atraumatic SKIN: warm and dry, face as above. NEUROLOGIC: CN 2-12 grossly intact, no sensory deficit, normal cognition, normal speech, no tremor PSYCHIATRIC: alert cooperative and oriented to person, place and time. Euthymic mood, makes good eye contact, language grossly intact, recent and remote memory grossly intact. Results & Data Results & Data Vital Signs (Past 12 Hours) Vital Signs Temp Pulse Pulse Resp BP Pulse Ox O2 Del Method 12/19/22 17:11 81 12/19/22 15:36 36.9 C 85 18 142/60 H 98 Room Air 12/19/22 11:41 36.8 C 92 H 18 107/68 98 Room Air Laboratory Results [facility] 12/19/22 10:40 Sodium 138 Potassium 3.5 Chloride 107 Carbon Dioxide 24 BUN 25 H Creatinine 1.14 Glucose 195 H Calcium 9.0 Medications Administered Current Inpatient Medications Acetaminophen (Acetaminophen 325 Mg Tab) 650 mg PO Q4H PRN PRN Reason: Pain or Fever Stop: 01/13/23 12:19 Last Admin: 12/18/22 10:28 Dose: 650 mg Amlodipine Besylate (Amlodipine Besylate 5 Mg Tab) 2.5 mg PO PM DAJA Stop: 01/13/23 20:59 Last Admin: 12/18/22 20:05 Dose: 2.5 mg Apixaban (Apixaban 5 Mg Tablet) 5 mg PO BID DAJA Stop: 01/14/23 08:59 Last Admin: 12/19/22 07:57 Dose: 5 mg Aspirin (Aspirin 81 Mg Ectab) 81 mg PO PM DAJA Stop: 01/14/23 20:59 Last Admin: 12/18/22 20:05 Dose: 81 mg Atorvastatin Calcium (Atorvastatin 40 Mg Tab) 80 mg PO PM DAJA Stop: 01/13/23 20:59 Last Admin: 12/18/22 20:07 Dose: 80 mg Bacitracin (Bacitracin Oint 14 Gm Tube) 1 appln EXT BID DAJA Stop: 01/17/23 20:59 Last Admin: 12/19/22 07:59 Dose: 1 appln Dextrose (Dextrose 50% 50 Ml Syringe) 25 - 50 ml IV UD PRN; Protocol PRN Reason: Hypoglycemia Protocol Stop: 01/13/23 14:06 Docusate Sodium (Docusate Sodium 100 Mg Cap) 100 mg PO DAILY DAJA Stop: 01/14/23 08:59 Last Admin: 12/19/22 07:59 Dose: 100 mg Ezetimibe (Ezetimibe 10 Mg Tablet) 10 mg PO QAM DAJA Stop: 01/14/23 08:59 Last Admin: 12/19/22 07:57 Dose: 10 mg Furosemide (Furosemide 20 Mg Tab) 20 mg PO DAILY@0700,1200 [facility] Stop: 01/14/23 06:59 Last Admin: 12/19/22 12:33 Dose: 20 mg Glucagon (Glucagon For Inj 1 Mg Vial) 1 mg SQ UD PRN; Protocol PRN Reason: Hypoglycemia Protocol Stop: 01/13/23 14:06 Glucose (Glucose 10 Tab/Tube) 4 - 8 tab PO UD PRN; Protocol PRN Reason: Hypoglycemia Treatment Stop: 01/13/23 14:06 Glucose (Glucose 40% Gel 15 Gm Tube) 15 - 30 gm PO UD PRN; Protocol PRN Reason: Hypoglycemia Protocol Stop: 01/13/23 14:06 Hydromorphone HCl (Hydromorphone Inj 0.5 Mg/0.5 Ml Syr) 0.25 mg IV Q4H PRN PRN Reason: Severe Pain (Scale 7, 8, 9,10) Stop: 12/28/22 14:06 Insulin Aspart (Insulin Aspart Per Unit Charge) 0 units SC ACHS [facility] Stop: 01/13/23 16:29 Last Admin: 12/19/22 18:03 Dose: 1 units Levothyroxine Sodium (Levothyroxine Sodium 112 Mcg Tablet) 112 mcg PO DAILYBB [facility] Stop: 01/14/23 06:29 Last Admin: 12/19/22 06:01 Dose: 112 mcg Lisinopril (Lisinopril 20 Mg Tab) 20 mg PO QAM [facility] Stop: 01/14/23 08:59 Last Admin: 12/19/22 07:57 Dose: 20 mg Magnesium Oxide (Magnesium Oxide 400 Mg Tab) 400 mg PO BID [facility] Stop: 01/13/23 20:59 Last Admin: 12/19/22 07:57 Dose: 400 mg Melatonin (Melatonin 3 Mg Tab) 3 mg PO HS PRN PRN Reason: Sleep Stop: 01/15/23 20:54 Metoprolol Succinate (Metoprolol Succ 25mg Ext Rel Tab) 25 mg PO QAM [facility] Stop: 01/14/23 08:59 Last Admin: 12/19/22 07:57 Dose: 25 mg Miscellaneous (Vascepa- Order Awaiting Action) 1 each N/A QS [facility] Stop: 01/13/23 15:59 Last Admin: 12/19/22 14:14 Dose: Not Given Miscellaneous (Carbohydrates For Hypoglycemia ) 15 - 30 gm PO UD PRN PRN Reason: Hypoglycemia Protocol Stop: 01/13/23 14:06 Ondansetron HCl (Ondansetron Inj 2 Mg/Ml 2 Ml Vial) 4 mg IV Q6H PRN PRN Reason: Nausea Stop: 01/13/23 12:19 Last Admin: 12/14/22 13:38 Dose: 4 mg Oxcarbazepine (Oxcarbazepine 150 Mg Tablet) 450 mg PO BID [facility] Stop: 01/13/23 20:59 Last Admin: 12/19/22 07:56 Dose: 450 mg Pantoprazole Sodium (Pantoprazole 40 Mg Tab) 40 mg PO DAILYBB [facility] Stop: 01/14/23 06:29 Last Admin: 12/19/22 06:01 Dose: 40 mg Polyethylene Glycol (Polyethylene (Miralax) 17 Gm Pack) 17 gm PO DAILY PRN PRN Reason: Constipation Stop: 01/13/23 12:19 Potassium Chloride (Potassium Chloride 10 Meq Tabcr) 10 meq PO DAILY [facility] Stop: 01/17/23 16:59 Last Admin: 12/19/22 07:56 Dose: 10 meq Pyridoxine HCl (Pyridoxine Hcl 50 Mg Tab) 250 mg PO DAILY@1200 [facility] Stop: 01/14/23 11:59 Last Admin: 12/19/22 07:57 Dose: 250 mg Topiramate (Topiramate 50 Mg Tab) 50 mg PO BID@0900,1200 [facility] Stop: 01/15/23 08:59 Last Admin: 12/19/22 12:33 Dose: 50 mg Topiramate (Topiramate 100 Mg Tab) 100 mg PO HS [facility] Stop: 01/15/23 20:59 Last Admin: 12/18/22 20:05 Dose: 100 mg Vitamin D (Cholecalciferol 5,000 Units 125 Mcg Tab) 5,000 units PO DAILY@1200 [facility] Stop: 01/14/23 11:59 Last Admin: 12/19/22 12:33 Dose: 5,000 units (1) Fall Encounter type: subsequent encounter Qualified Code(s): W19.XXXD - Unspecified fall, subsequent encounter (2) Rhabdomyolysis Rhabdomyolysis type: non-traumatic Qualified Code(s): M62.82 - Rhabdomyolysis
[2022-12-19] MEDS: TOPIRAMATE 100 MG TAB PO SCH (20:41)
[2022-12-19] MEDS: ATORVASTATIN 40 MG TAB PO SCH (20:41)
[2022-12-19] MEDS: amLODIPine BESYLATE 5 MG TAB PO SCH (20:41)
[2022-12-19] MEDS: ASPIRIN 81 MG ECTAB PO SCH (20:41)
[2022-12-20] MEDS: PANTOprazole 40 MG TAB PO SCH (04:43)
[2022-12-20] MEDS: LEVOTHYROXINE SODIUM 112 MCG TABLET PO SCH (04:43)
[2022-12-20 07:19] LABS: Calcium 9.5 mg/dl (8.6-10.3); Creatinine Clr Calc Pharmacy 32.1 ml/min; Est GFR (African American) 48.7 ml/min; Potassium 4.3 mmol/L (3.5-5.1)
[2022-12-20] MEDS: lisinopril 20 MG TAB PO SCH (08:19)
[2022-12-20] MEDS: EZETIMIBE 10 MG TAB PO SCH (08:19)
[2022-12-20] MEDS: TOPIRAMATE 50 MG TAB PO SCH ×2 (08:19→12:13)
[2022-12-20] MEDS: POTASSIUM CHLORIDE 10 MEQ TABCR PO SCH (08:19)
[2022-12-20] MEDS: MAGNESIUM OXIDE 400 MG TAB PO SCH ×2 (08:20→20:35)
[2022-12-20] MEDS: OXcarbazepine 150 MG TABLET PO SCH ×2 (08:20→20:31)
[2022-12-20] MEDS: APIXABAN 5 MG TABLET PO SCH ×2 (08:20→20:31)
[2022-12-20] MEDS: FUROSEMIDE 20 MG TAB PO SCH (08:20)
[2022-12-20] MEDS: METOPROLOL SUCC 25MG EXT REL TAB PO SCH (08:20)
[2022-12-20] MEDS: BACITRACIN OINT 14 GM TUBE EXT SCH ×2 (08:20→20:32)
[2022-12-20] MEDS: DOCUSATE SODIUM 100 MG CAP PO SCH (08:23)
[2022-12-20] MEDS: INSULIN ASPART PER UNIT CHARGE SC SCH ×4 (09:17→20:32)
[2022-12-20] MEDS: CHOLECALCIFEROL 5,000 UNITS 125 MCG TAB PO SCH (12:13)
[2022-12-20] MEDS: PYRIDOXINE HCL 50 MG TAB PO SCH (12:13)
--- NOTE | 2022-12-20 16:18 | Hospitalist Progress Note ---
Date of Service December 20, 2022 Assessment & Plan (1) Fall: Plan: mechanical fall at home while ambulating with her walker Patient may be fine with temporary rehab, but does not want to transition to assisted living. PT/OT recommends rehab. She must be able to at least transfer independently prior to going home. Noted that she has home health to assist and she has a wheelchair. She has been ambulating with the walker but is still feels a little unsteady Wanted to have another day of physical therapy but is still wants to go home and mentions that she has home health for more hours recently (2) Rhabdomyolysis: Plan: Nontraumatic rhabdomyolysis with prolonged time down on the floor. CK and renal function improved wtih IVF-resolved. Advised to drink more fluid (3) Acute urinary retention: Plan: Renal function improved after Patel placement. Trial of void with bladder scans overnight. Ensure she is spontaneously urinating prior to discharge (4) Hyponatremia: Plan: Known h/o SIADH. Na improved with urea, 1500ml Fluid restriction and Lasix 20mg bid. Stop urea per nephrology. Cont fluid restriction and lasix. Sodium level remains normal at 137 (5) Acute kidney injury superimposed on CKD: Plan: Baseline creat 1.2-1.4, Improved with IVF and placement of patel catheter for urinary retention. rEsolved. Creatinine is a little high at 1.23 Was advised to drink more fluid (6) Coronary artery disease: Plan: chronic, stable. No evidence of ACS, however, with demand ischemia in response to stress, outpatient pharmacologic stress test is recommended post discharge. (7) Demand ischemia: Plan: plan as noted above. Echo performed this admission with no acute wall motion abnormalities. No cardiac symptoms (8) Chronic pain: Plan: Patient is on trileptal 450mg BID, which was stopped on discharge after recent hospitalization (10/30/22) for severe hyponatremia 2/2 SIADH. She started it again recently per PCP notes as it reportedly helps her chronic pain. This has a known side effect of hyponatremia, especially when taken in combination with diuretics (she is on Lasix). This may be contributing to her current hyponatremia but she feels this is important for controlling her pain. She is also taking Topamax with max dose 400mg per day, which she is on. Given renal dysfunction and GFR<70, will cont this at 50% dose per guidelines. (9) Facial abrasion: Plan: Pressure injury vs mild abrasion to face from sliding across the floor. Cont bacitracin ointment and keep uncovered. Appreciate wound RN demetri and vic. No evidence of superficial infection so ceftriaxone was stopped. (10) DMII (diabetes mellitus, type 2): Plan: chronic, controlled with A1C 5.4. Cont current therapy. (11) Hypothyroidism: Plan: chronic, stable. Cont Synthroid per home regimen. (12) Hyperlipidemia: Plan: chronic, stable. Cont atorvastatin, icosapent and zetia per home regimen. (13) Carotid artery stenosis: Plan: chronic, stable. Cont medical management. DVT proph-Eliquis Full Code Dispo-likely DC to home tomorrow as long as she is still moving well. Home health is already established in place. [facility] at home is in place. Admission and Anticipated Discharge Date Admission Date: December 14, 2022 Subjective 12/20/2022 The patient was seen and examined in medical telemetry unit She is not yet ready to be discharged home today Denies any significant symptoms except a little unsteadiness on feet Will have more physical therapy likely discharge tomorrow Review of Systems Review of Systems: All systems reviewed and are unremarkable except as noted below Physical Exam Physical Exam: Sitting on a chair without any acute distress Constitutional: well developed, well nourished and + obese; not ill appearing Eyes: PERRL, conjunctivae normal, anicteric sclerae ENMT: external ear and nose normal, oropharynx normal Neck: trachea midline, no thyromegaly Respiratory: + labored breathing; no respiratory distress Auscultation: lungs clear to auscultation bilaterally Cardiovascular: Rate/Rhythm: regular rate and regular rhythm; not tachycardic Heart Sounds: normal S1 and normal S2; no murmur Extremities: no edema Gastrointestinal (Abdomen): Inspection/Auscultation: normal bowel sounds; abdomen not distended Percussion/Palpation: abdomen soft; abdomen nontender Musculoskeletal: No acute arthritis involving any joint Neurologic: normal touch/pain/proprioception and moves all extremities; no focal motor deficits Psychiatric: A+Ox3, euthymic affect Lymphatic: no cervical or axillary lymphadenopathy Results & Data Results & Data Vital Signs (Past 12 Hours) Vital Signs Temp Pulse Pulse Resp BP Pulse Ox O2 Del Method 12/20/22 15:51 36.6 C 85 20 136/77 95 Room Air 12/20/22 15:06 85 12/20/22 11:22 36.4 C L 95 H 20 103/62 100 Room Air 12/20/22 08:52 78 12/20/22 07:18 36.7 C 80 18 150/76 H 97 Room Air Laboratory Results [facility] 12/20/22 06:18 Sodium 137 Potassium 4.3 D Chloride 106 Carbon Dioxide 26 BUN 27 H Creatinine 1.23 H Glucose 93 Calcium 9.5 Medications Administered Current Inpatient Medications Acetaminophen (Acetaminophen 325 Mg Tab) 650 mg PO Q4H PRN PRN Reason: Pain or Fever Stop: 01/13/23 12:19 Last Admin: 12/18/22 10:28 Dose: 650 mg Amlodipine Besylate (Amlodipine Besylate 5 Mg Tab) 2.5 mg PO PM DAJA Stop: 01/13/23 20:59 Last Admin: 12/19/22 20:41 Dose: 2.5 mg Apixaban (Apixaban 5 Mg Tablet) 5 mg PO BID DAJA Stop: 01/14/23 08:59 Last Admin: 12/20/22 08:20 Dose: 5 mg Aspirin (Aspirin 81 Mg Ectab) 81 mg PO PM DAJA Stop: 01/14/23 20:59 Last Admin: 12/19/22 20:41 Dose: 81 mg Atorvastatin Calcium (Atorvastatin 40 Mg Tab) 80 mg PO PM DAJA Stop: 01/13/23 20:59 Last Admin: 12/19/22 20:41 Dose: 80 mg Bacitracin (Bacitracin Oint 14 Gm Tube) 1 appln EXT BID DAJA Stop: 01/17/23 20:59 Last Admin: 12/20/22 08:20 Dose: 1 appln Dextrose (Dextrose 50% 50 Ml Syringe) 25 - 50 ml IV UD PRN; Protocol PRN Reason: Hypoglycemia Protocol Stop: 01/13/23 14:06 Docusate Sodium (Docusate Sodium 100 Mg Cap) 100 mg PO DAILY DAJA Stop: 01/14/23 08:59 Last Admin: 12/20/22 08:23 Dose: 100 mg Ezetimibe (Ezetimibe 10 Mg Tablet) 10 mg PO QAM DAJA Stop: 01/14/23 08:59 Last Admin: 12/20/22 08:19 Dose: 10 mg Furosemide (Furosemide 20 Mg Tab) 20 mg PO DAILY [facility] Stop: 01/19/23 08:59 Last Admin: 12/20/22 08:20 Dose: 20 mg Glucagon (Glucagon For Inj 1 Mg Vial) 1 mg SQ UD PRN; Protocol PRN Reason: Hypoglycemia Protocol Stop: 01/13/23 14:06 Glucose (Glucose 10 Tab/Tube) 4 - 8 tab PO UD PRN; Protocol PRN Reason: Hypoglycemia Treatment Stop: 01/13/23 14:06 Glucose (Glucose 40% Gel 15 Gm Tube) 15 - 30 gm PO UD PRN; Protocol PRN Reason: Hypoglycemia Protocol Stop: 01/13/23 14:06 Hydromorphone HCl (Hydromorphone Inj 0.5 Mg/0.5 Ml Syr) 0.25 mg IV Q4H PRN PRN Reason: Severe Pain (Scale 7, 8, 9,10) Stop: 12/28/22 14:06 Insulin Aspart (Insulin Aspart Per Unit Charge) 0 units SC ACHS [facility] Stop: 01/13/23 16:29 Last Admin: 12/20/22 12:56 Dose: 2 units Levothyroxine Sodium (Levothyroxine Sodium 112 Mcg Tablet) 112 mcg PO DAILYBB [facility] Stop: 01/14/23 06:29 Last Admin: 12/20/22 04:43 Dose: 112 mcg Lisinopril (Lisinopril 20 Mg Tab) 20 mg PO QAM [facility] Stop: 01/14/23 08:59 Last Admin: 12/20/22 08:19 Dose: 20 mg Magnesium Oxide (Magnesium Oxide 400 Mg Tab) 400 mg PO BID [facility] Stop: 01/13/23 20:59 Last Admin: 12/20/22 08:20 Dose: 400 mg Melatonin (Melatonin 3 Mg Tab) 3 mg PO HS PRN PRN Reason: Sleep Stop: 01/15/23 20:54 Metoprolol Succinate (Metoprolol Succ 25mg Ext Rel Tab) 25 mg PO QAM [facility] Stop: 01/14/23 08:59 Last Admin: 12/20/22 08:20 Dose: 25 mg Miscellaneous (Vascepa- Order Awaiting Action) 1 each N/A QS [facility] Stop: 01/13/23 15:59 Last Admin: 12/20/22 15:38 Dose: Not Given Miscellaneous (Carbohydrates For Hypoglycemia ) 15 - 30 gm PO UD PRN PRN Reason: Hypoglycemia Protocol Stop: 01/13/23 14:06 Ondansetron HCl (Ondansetron Inj 2 Mg/Ml 2 Ml Vial) 4 mg IV Q6H PRN PRN Reason: Nausea Stop: 01/13/23 12:19 Last Admin: 12/14/22 13:38 Dose: 4 mg Oxcarbazepine (Oxcarbazepine 150 Mg Tablet) 450 mg PO BID [facility] Stop: 01/13/23 20:59 Last Admin: 12/20/22 08:20 Dose: 450 mg Pantoprazole Sodium (Pantoprazole 40 Mg Tab) 40 mg PO DAILYBB [facility] Stop: 01/14/23 06:29 Last Admin: 12/20/22 04:43 Dose: 40 mg Polyethylene Glycol (Polyethylene (Miralax) 17 Gm Pack) 17 gm PO DAILY PRN PRN Reason: Constipation Stop: 01/13/23 12:19 Potassium Chloride (Potassium Chloride 10 Meq Tabcr) 10 meq PO DAILY [facility] Stop: 01/17/23 16:59 Last Admin: 12/20/22 08:19 Dose: 10 meq Pyridoxine HCl (Pyridoxine Hcl 50 Mg Tab) 250 mg PO DAILY@1200 [facility] Stop: 01/14/23 11:59 Last Admin: 12/20/22 12:13 Dose: 250 mg Topiramate (Topiramate 50 Mg Tab) 50 mg PO BID@0900,1200 [facility] Stop: 01/15/23 08:59 Last Admin: 12/20/22 12:13 Dose: 50 mg Topiramate (Topiramate 100 Mg Tab) 100 mg PO HS [facility] Stop: 01/15/23 20:59 Last Admin: 12/19/22 20:41 Dose: 100 mg Vitamin D (Cholecalciferol 5,000 Units 125 Mcg Tab) 5,000 units PO DAILY@1200 [facility] Stop: 01/14/23 11:59 Last Admin: 12/20/22 12:13 Dose: 5,000 units (1) Fall Encounter type: subsequent encounter Qualified Code(s): W19.XXXD - Unspecified fall, subsequent encounter (2) Rhabdomyolysis Rhabdomyolysis type: non-traumatic Qualified Code(s): M62.82 - Rhabdomyolysis
[2022-12-20] MEDS: amLODIPine BESYLATE 5 MG TAB PO SCH (20:30)
[2022-12-20] MEDS: ATORVASTATIN 40 MG TAB PO SCH (20:30)
[2022-12-20] MEDS: TOPIRAMATE 100 MG TAB PO SCH (20:31)
[2022-12-21] MEDS: PANTOprazole 40 MG TAB PO SCH (06:10)
[2022-12-21] MEDS: LEVOTHYROXINE SODIUM 112 MCG TABLET PO SCH (06:10)
[2022-12-21] MEDS: ASPIRIN 81 MG ECTAB PO SCH (09:23)
[2022-12-21] MEDS: INSULIN ASPART PER UNIT CHARGE SC SCH ×2 (09:24→13:07)
[2022-12-21] MEDS: TOPIRAMATE 50 MG TAB PO SCH ×2 (09:25→13:06)
[2022-12-21] MEDS: BACITRACIN OINT 14 GM TUBE EXT SCH (09:25)
[2022-12-21] MEDS: APIXABAN 5 MG TABLET PO SCH (09:25)
[2022-12-21] MEDS: METOPROLOL SUCC 25MG EXT REL TAB PO SCH (09:26)
[2022-12-21] MEDS: POTASSIUM CHLORIDE 10 MEQ TABCR PO SCH (09:26)
[2022-12-21] MEDS: MAGNESIUM OXIDE 400 MG TAB PO SCH (09:26)
[2022-12-21] MEDS: FUROSEMIDE 20 MG TAB PO SCH (09:26)
[2022-12-21] MEDS: EZETIMIBE 10 MG TAB PO SCH (09:26)
[2022-12-21] MEDS: OXcarbazepine 150 MG TABLET PO SCH (09:26)
[2022-12-21] MEDS: lisinopril 20 MG TAB PO SCH (09:27)
[2022-12-21] MEDS: DOCUSATE SODIUM 100 MG CAP PO SCH (09:27)
--- NOTE | 2022-12-21 12:58 | Hospitalist Progress Note ---
Date of Service December 21, 2022 Assessment & Plan (1) Fall: Plan: mechanical fall at home while ambulating with her walker Patient may be fine with temporary rehab, but does not want to transition to assisted living. PT/OT recommends rehab. She must be able to at least transfer independently prior to going home. Noted that she has home health to assist and she has a wheelchair. She has been ambulating with the walker but is still feels a little unsteady Wanted to have another day of physical therapy but is still wants to go home and mentions that she has home health for more hours recently She has been stable with ambulation and says that she is ready to be discharged today She will be going home this afternoon with home health (2) Rhabdomyolysis: Plan: Nontraumatic rhabdomyolysis with prolonged time down on the floor. CK and renal function improved wtih IVF-resolved. Advised to drink more fluid (3) Acute urinary retention: Plan: Renal function improved after Patel placement. Trial of void with bladder scans overnight. Ensure she is spontaneously urinating prior to discharge No current issues (4) Hyponatremia: Plan: Known h/o SIADH. Na improved with urea, 1500ml Fluid restriction and Lasix 20mg bid. Stop urea per nephrology. Cont fluid restriction and lasix. Sodium level remains normal at 137 (5) Acute kidney injury superimposed on CKD: Plan: Baseline creat 1.2-1.4, Improved with IVF and placement of patel catheter for urinary retention. rEsolved. Creatinine is a little high at 1.23 Was advised to drink more fluid (6) Coronary artery disease: Plan: chronic, stable. No evidence of ACS, however, with demand ischemia in response to stress, outpatient pharmacologic stress test is recommended post discharge. (7) Demand ischemia: Plan: plan as noted above. Echo performed this admission with no acute wall motion abnormalities. No cardiac symptoms (8) Chronic pain: Plan: Patient is on trileptal 450mg BID, which was stopped on discharge after recent hospitalization (10/30/22) for severe hyponatremia 2/2 SIADH. She started it again recently per PCP notes as it reportedly helps her chronic pain. This has a known side effect of hyponatremia, especially when taken in combination with diuretics (she is on Lasix). This may be contributing to her current hyponatremia but she feels this is important for controlling her pain. She is also taking Topamax with max dose 400mg per day, which she is on. Given renal dysfunction and GFR<70, will cont this at 50% dose per guidelines. No acute issues with pain (9) Facial abrasion: Plan: Pressure injury vs mild abrasion to face from sliding across the floor. Cont bacitracin ointment and keep uncovered. Appreciate wound RN demetri and recs. No evidence of superficial infection so ceftriaxone was stopped. (10) DMII (diabetes mellitus, type 2): Plan: chronic, controlled with A1C 5.4. Cont current therapy. (11) Hypothyroidism: Plan: chronic, stable. Cont Synthroid per home regimen. (12) Hyperlipidemia: Plan: chronic, stable. Cont atorvastatin, icosapent and zetia per home regimen. (13) Carotid artery stenosis: Plan: chronic, stable. Cont medical management. DVT proph-Eliquis Full Code Dispo-likely DC to home tomorrow as long as she is still moving well. Home health is already established in place. [facility] at home is in place. Plan Remains medically stable and will be discharged home this afternoon Admission and Anticipated Discharge Date Admission Date: December 14, 2022 Subjective 12/20/2022 The patient was seen and examined in medical telemetry unit She is not yet ready to be discharged home today Denies any significant symptoms except a little unsteadiness on feet Will have more physical therapy likely discharge tomorrow 12/21/2022 The patient was seen and examined in medical telemetry unit She has been feeling much better and ready to go home today Has had repeat physical therapy and is confident that she can take care of herself at home She will have home health nurse as well Review of Systems Review of Systems: All systems reviewed and are unremarkable except as noted below Physical Exam Physical Exam: Sitting on a chair without any acute distress Constitutional: well developed, well nourished and + obese; not ill appearing Eyes: PERRL, conjunctivae normal, anicteric sclerae ENMT: external ear and nose normal, oropharynx normal Neck: trachea midline, no thyromegaly Respiratory: + labored breathing; no respiratory distress Auscultation: lungs clear to auscultation bilaterally Cardiovascular: Rate/Rhythm: regular rate and regular rhythm; not tachycardic Heart Sounds: normal S1 and normal S2; no murmur Extremities: no edema Gastrointestinal (Abdomen): Inspection/Auscultation: normal bowel sounds; abdomen not distended Percussion/Palpation: abdomen soft; abdomen nontender Musculoskeletal: No acute arthritis involving any joint Neurologic: normal touch/pain/proprioception and moves all extremities; no focal motor deficits Psychiatric: A+Ox3, euthymic affect Lymphatic: no cervical or axillary lymphadenopathy Results & Data Results & Data Vital Signs (Past 12 Hours) Vital Signs Temp Pulse Pulse Resp BP BP Pulse Ox 12/21/22 12:01 36.4 C L 77 17 152/81 H 98 12/21/22 10:56 74 12/21/22 02:54 36.9 C 84 16 115/73 97 O2 Del Method 12/21/22 12:01 Room Air 12/21/22 10:56 12/21/22 02:54 Room Air Medications Administered Current Inpatient Medications Acetaminophen (Acetaminophen 325 Mg Tab) 650 mg PO Q4H PRN PRN Reason: Pain or Fever Stop: 01/13/23 12:19 Last Admin: 12/18/22 10:28 Dose: 650 mg Amlodipine Besylate (Amlodipine Besylate 5 Mg Tab) 2.5 mg PO PM DAJA Stop: 01/13/23 20:59 Last Admin: 12/20/22 20:30 Dose: 2.5 mg Apixaban (Apixaban 5 Mg Tablet) 5 mg PO BID DAJA Stop: 01/14/23 08:59 Last Admin: 12/21/22 09:25 Dose: 5 mg Aspirin (Aspirin 81 Mg Ectab) 81 mg PO PM DAJA Stop: 01/14/23 20:59 Last Admin: 12/21/22 09:23 Dose: Not Given Atorvastatin Calcium (Atorvastatin 40 Mg Tab) 80 mg PO PM DAJA Stop: 01/13/23 20:59 Last Admin: 12/20/22 20:30 Dose: 80 mg Bacitracin (Bacitracin Oint 14 Gm Tube) 1 appln EXT BID DAJA Stop: 01/17/23 20:59 Last Admin: 12/21/22 09:25 Dose: 1 appln Dextrose (Dextrose 50% 50 Ml Syringe) 25 - 50 ml IV UD PRN; Protocol PRN Reason: Hypoglycemia Protocol Stop: 01/13/23 14:06 Docusate Sodium (Docusate Sodium 100 Mg Cap) 100 mg PO DAILY DAJA Stop: 01/14/23 08:59 Last Admin: 12/21/22 09:27 Dose: 100 mg Ezetimibe (Ezetimibe 10 Mg Tablet) 10 mg PO QAM [facility] Stop: 01/14/23 08:59 Last Admin: 12/21/22 09:26 Dose: 10 mg Furosemide (Furosemide 20 Mg Tab) 20 mg PO DAILY DAJA Stop: 01/19/23 08:59 Last Admin: 12/21/22 09:26 Dose: 20 mg Glucagon (Glucagon For Inj 1 Mg Vial) 1 mg SQ UD PRN; Protocol PRN Reason: Hypoglycemia Protocol Stop: 01/13/23 14:06 Glucose (Glucose 10 Tab/Tube) 4 - 8 tab PO UD PRN; Protocol PRN Reason: Hypoglycemia Treatment Stop: 01/13/23 14:06 Glucose (Glucose 40% Gel 15 Gm Tube) 15 - 30 gm PO UD PRN; Protocol PRN Reason: Hypoglycemia Protocol Stop: 01/13/23 14:06 Hydromorphone HCl (Hydromorphone Inj 0.5 Mg/0.5 Ml Syr) 0.25 mg IV Q4H PRN PRN Reason: Severe Pain (Scale 7, 8, 9,10) Stop: 12/28/22 14:06 Insulin Aspart (Insulin Aspart Per Unit Charge) 0 units SC ACHS [facility] Stop: 01/13/23 16:29 Last Admin: 12/21/22 09:24 Dose: Not Given Levothyroxine Sodium (Levothyroxine Sodium 112 Mcg Tablet) 112 mcg PO DAILYBB [facility] Stop: 01/14/23 06:29 Last Admin: 12/21/22 06:10 Dose: 112 mcg Lisinopril (Lisinopril 20 Mg Tab) 20 mg PO QAM [facility] Stop: 01/14/23 08:59 Last Admin: 12/21/22 09:27 Dose: 20 mg Magnesium Oxide (Magnesium Oxide 400 Mg Tab) 400 mg PO BID [facility] Stop: 01/13/23 20:59 Last Admin: 12/21/22 09:26 Dose: 400 mg Melatonin (Melatonin 3 Mg Tab) 3 mg PO HS PRN PRN Reason: Sleep Stop: 01/15/23 20:54 Metoprolol Succinate (Metoprolol Succ 25mg Ext Rel Tab) 25 mg PO QAM [facility] Stop: 01/14/23 08:59 Last Admin: 12/21/22 09:26 Dose: 25 mg Miscellaneous (Vascepa- Order Awaiting Action) 1 each N/A QS [facility] Stop: 01/13/23 15:59 Last Admin: 12/21/22 09:23 Dose: Not Given Miscellaneous (Carbohydrates For Hypoglycemia ) 15 - 30 gm PO UD PRN PRN Reason: Hypoglycemia Protocol Stop: 01/13/23 14:06 Ondansetron HCl (Ondansetron Inj 2 Mg/Ml 2 Ml Vial) 4 mg IV Q6H PRN PRN Reason: Nausea Stop: 01/13/23 12:19 Last Admin: 12/14/22 13:38 Dose: 4 mg Oxcarbazepine (Oxcarbazepine 150 Mg Tablet) 450 mg PO BID [facility] Stop: 01/13/23 20:59 Last Admin: 12/21/22 09:26 Dose: 450 mg Pantoprazole Sodium (Pantoprazole 40 Mg Tab) 40 mg PO DAILYBB [facility] Stop: 01/14/23 06:29 Last Admin: 12/21/22 06:10 Dose: 40 mg Polyethylene Glycol (Polyethylene (Miralax) 17 Gm Pack) 17 gm PO DAILY PRN PRN Reason: Constipation Stop: 01/13/23 12:19 Potassium Chloride (Potassium Chloride 10 Meq Tabcr) 10 meq PO DAILY [facility] Stop: 01/17/23 16:59 Last Admin: 12/21/22 09:26 Dose: 10 meq Pyridoxine HCl (Pyridoxine Hcl 50 Mg Tab) 250 mg PO DAILY@1200 [facility] Stop: 01/14/23 11:59 Last Admin: 12/20/22 12:13 Dose: 250 mg Topiramate (Topiramate 50 Mg Tab) 50 mg PO BID@0900,1200 [facility] Stop: 01/15/23 08:59 Last Admin: 12/21/22 09:25 Dose: 50 mg Topiramate (Topiramate 100 Mg Tab) 100 mg PO HS [facility] Stop: 01/15/23 20:59 Last Admin: 12/20/22 20:31 Dose: 100 mg Vitamin D (Cholecalciferol 5,000 Units 125 Mcg Tab) 5,000 units PO DAILY@1200 [facility] Stop: 01/14/23 11:59 Last Admin: 12/20/22 12:13 Dose: 5,000 units (1) Fall Encounter type: subsequent encounter Qualified Code(s): W19.XXXD - Unspecified fall, subsequent encounter (2) Rhabdomyolysis Rhabdomyolysis type: non-traumatic Qualified Code(s): M62.82 - Rhabdomyolysis
[2022-12-21] MEDS: CHOLECALCIFEROL 5,000 UNITS 125 MCG TAB PO SCH (13:06)
[2022-12-21] MEDS: PYRIDOXINE HCL 50 MG TAB PO SCH (13:06)
--- NOTE | 2022-12-22 08:27 | Discharge Summary ---
Date of Service December 21, 2022 Admission HPI Per Admitting Provider 76yoF with PMHx significant for CAD s/p stent, hx of DVT on eliquis, PVD, CVA, HTN, HLD, T2DM, hypothyroidism, chronic hyponatremia, chronic anemia [baseline hemoglobin around 11], GERD, mood disorder, chronic pain and lower extremity edema admitted after a fall at home. She spent many hours on the floor, noting that this happened about 3 pm yesterday and she was found this morning. She states she kept banging on the floor and the neighbor downstairs went to get the landlord to help open the door. She notes she tried to get to her phone or life alert but could not. She lives alone. She states she fell onto her left side after attempting to put on her sweater while using her walker. Notes that she thinks the sweater got tangled in the walker and she fell. Denies syncope. Admission Exam Per Admitting Provider Physical Exam: General: Alert, orientedx3. Skin: facial bruising and swelling noted on left face, left elbow with some erythema. Psych: Appropriate mood and affect Neuro: difficulty moving her left arm HEENT: facial bruising and swelling noted on left face CV: RRR, Normal s1, s2. Resp: no increased effort of breathing. Abdomen: Soft, nontender Extremities: Some edema in lower extremities bilaterally. Principal Diagnosis Ambulatory dysfunction with fall, hyponatremia, ALBERTINA on CKD, CAD, chronic pain Discharge Exam Sitting on a chair without any acute distress Constitutional well developed, well nourished and + obese; not ill appearing Eyes PERRL, conjunctivae normal, anicteric sclerae ENMT external ear and nose normal, oropharynx normal Neck trachea midline, no thyromegaly Respiratory + labored breathing; no respiratory distress Auscultation: lungs clear to auscultation bilaterally Cardiovascular Rate/Rhythm: regular rate and regular rhythm; not tachycardic Heart Sounds: normal S1 and normal S2; no murmur Extremities: no edema Gastrointestinal (Abdomen) Inspection/Auscultation: normal bowel sounds; abdomen not distended Percussion/Palpation: abdomen soft; abdomen nontender Neurologic normal touch/pain/proprioception and moves all extremities; no focal motor deficits Psychiatric A+Ox3, euthymic affect Lymphatic no cervical or axillary lymphadenopathy Discharge Data 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 propoxyphene AdvReac Intermediate GI UPSET, Verified 10/20/22 23:42 "DISORIENTED" amoxicillin AdvReac Mild VOMITING, Verified 10/20/22 23:42 GI UPSET baclofen AdvReac Mild disoriented Verified 10/20/22 23:42 nausea capsaicin [Diclopak] AdvReac Mild disoriented Verified 10/20/22 23:42 nausea clavulanic acid AdvReac Mild VOMITING, Verified 10/20/22 23:42 GI UPSET diclofenac [Diclopak] AdvReac Mild disoriented Verified 10/20/22 23:42 nausea Diclopak AdvReac Mild disoriented Verified 06/22/16 00:52 nausea codeine AdvReac Unknown pruritis Verified 10/20/22 23:44 Consultations 12/14/22 11:39 ED Decision to Admit Stat 12/14/22 14:07 Consult Cardiology Routine Consult Nephrology Routine Ordered Studies 12/14/22 08:58 CT cervical spine wo con Stat CT facial bones wo con Stat CT head/brain wo con Stat Hospital Course (1) Fall: mechanical fall at home while ambulating with her walker Patient may be fine with temporary rehab, but does not want to transition to assisted living. PT/OT recommends rehab. She must be able to at least transfer independently prior to going home. Noted that she has home health to assist and she has a wheelchair. She has been ambulating with the walker but is still feels a little unsteady Wanted to have another day of physical therapy but is still wants to go home and mentions that she has home health for more hours recently She has been stable with ambulation and says that she is ready to be discharged today She will be going home this afternoon with home health (2) Rhabdomyolysis: Nontraumatic rhabdomyolysis with prolonged time down on the floor. CK and renal function improved wtih IVF-resolved. Advised to drink more fluid (3) Acute urinary retention: Renal function improved after Patel placement. Trial of void with bladder scans overnight. Ensure she is spontaneously urinating prior to discharge No current issues (4) Hyponatremia: Known h/o SIADH. Na improved with urea, 1500ml Fluid restriction and Lasix 20mg bid. Stop urea per nephrology. Cont fluid restriction and lasix. Sodium level remains normal at 137 (5) Acute kidney injury superimposed on CKD: Baseline creat 1.2-1.4, Improved with IVF and placement of patel catheter for urinary retention. rEsolved. Creatinine is a little high at 1.23 Was advised to drink more fluid (6) Coronary artery disease: chronic, stable. No evidence of ACS, however, with demand ischemia in response to stress, outpatient pharmacologic stress test is recommended post discharge. (7) Demand ischemia: plan as noted above. Echo performed this admission with no acute wall motion abnormalities. No cardiac symptoms (8) Chronic pain: Patient is on trileptal 450mg BID, which was stopped on discharge after recent hospitalization (10/30/22) for severe hyponatremia 2/2 SIADH. She started it again recently per PCP notes as it reportedly helps her chronic pain. This has a known side effect of hyponatremia, especially when taken in combination with diuretics (she is on Lasix). This may be contributing to her current hyponatremia but she feels this is important for controlling her pain. She is also taking Topamax with max dose 400mg per day, which she is on. Given renal dysfunction and GFR<70, will cont this at 50% dose per guidelines. No acute issues with pain (9) Facial abrasion: Pressure injury vs mild abrasion to face from sliding across the floor. Cont bacitracin ointment and keep uncovered. Appreciate wound RN demetri and vic. No evidence of superficial infection so ceftriaxone was stopped. (10) DMII (diabetes mellitus, type 2): chronic, controlled with A1C 5.4. Cont current therapy. (11) Hypothyroidism: chronic, stable. Cont Synthroid per home regimen. (12) Hyperlipidemia: chronic, stable. Cont atorvastatin, icosapent and zetia per home regimen. (13) Carotid artery stenosis: chronic, stable. Cont medical management. DVT proph-Eliquis Full Code Dispo-likely DC to home tomorrow as long as she is still moving well. Home health is already established in place. [facility] at home is in place. Plan Remains medically stable and will be discharged home this afternoon Total Time Total Time Spent Total Time Spent (In Minutes): 35 minutes Discharge Plan Discharge Items Patient Disposition: Home - Home Health Services Reason For Visit: FALL Discharge Diagnosis: Ambulatory dysfunction with fall, hyponatremia, ALBERTINA on CKD, CAD, chronic pain Condition on Discharge: Good Activity: As commented below Activity Comment: Please take extreme precaution to avoid falls Non-emergency contact: Primary Care Provider Call non-emergency contact if: you have any medication questions and your symptoms worsen Follow-up/Referrals: Naty Fang DO [Primary Care Provider] - (Date & Time 12/26/2022 3:00 PM Provider Naty Fang DO [facility] ) Diet: Carb Consistent or DM2 Addtl Attending Provider Instructions: Please take precautions to avoid fall Usual walking aid when ambulating Take your medications as advised Please keep follow-up appointments with your healthcare providers Addtl E Business Manager Provider Instructions: outpatient pharmacologic stress test is recommended post discharge. Pending Studies at Discharge: No Stand-Alone Forms: My [facility], Smoking Cessation Medications and DC Order Prescriptions: Continued metformin 500 mg Tablet 500 mg PO QAM ezetimibe 10 mg Tablet 10 mg PO QAM amlodipine 2.5 mg Tablet 2.5 mg PO PM omeprazole 40 mg Capsule,Delayed Release(Dr/Ec) 40 mg PO DAILYBB Rx Instructions: 1 hour before breakfast atorvastatin 80 mg Tablet 80 mg PO PM aspirin 81 mg Tablet,Delayed Release (Dr/Ec) 81 mg PO PM metoprolol succinate 25 mg Tablet Extended Release 24 Hr 25 mg PO QAM topiramate 100 mg Tablet See Rx Instructions .ROUTE .COMPLEX Rx Instructions: Take 100mg by mouth in the morning, 100mg by mouth at noon and 200mg by mouth at bedtime levothyroxine 112 mcg Tablet 112 mcg PO DAILYBB icosapent ethyl 1 gram Capsule 2 g PO BIDM magnesium oxide 400 mg magnesium Tablet 400 mg PO BID pyridoxine (vitamin B6) [Vitamin B-6] 250 mg Tablet 250 mg PO .NOON oxcarbazepine [Trileptal] 150 mg Tablet See Rx Instructions .ROUTE .COMPLEX Rx Instructions: Take 150mg by mouth with 300mg tablet to equal 450mg twice daily lisinopril 20 mg Tablet 20 mg PO QAM oxcarbazepine [Trileptal] 300 mg Tablet See Rx Instructions .ROUTE .COMPLEX Rx Instructions: Take 300mg by mouth with 150mg tablet to equal 450mg twice daily docusate sodium [Colace] 100 mg Capsule 100 mg PO DAILY cholecalciferol (vitamin D3) [Vitamin D3] 125 mcg (5,000 unit) Tablet 125 mcg PO .NOON Eliquis 5 mg tablet 5 mg PO BID furosemide 20 mg tablet 20 mg PO .QAM AND NOON Discharge Orders: Discharge Order (Routine); Ordered 12/21/22 Ordered By: Peña Dennis/Other Patient Handouts: High Blood Sugar (Hyperglycemia), Hypoglycemia (Low Blood Sugar), Managing Type 2 Diabetes Admission Data Admit Date/Time: 12/14/22 12:20 Attending Provider: Peña Mulligan Admit Provider: Tierney Carcamo Primary Care Provider: Naty Fang Other Providers: Tierney Carcamo ; [facility] ; Maranda Morales Other Interventions: Discharge Summary Assessment (RN) Last Done: 12/21/22 13:38
== END 2022-12-21 16:30 | disposition home health service (06) | DRG 558 ==
LOC: ED 08:55 → SUATTDRO 12:20 → EDINP 12:20 → 2N 14:04

== ENCOUNTER 2023-01-05 14:15 | Inpatient (IN) ==
--- NOTE | 2023-01-05 14:55 | Emergency Department Note ---
Impression & Plan Acute hyponatremia ED Provider Note CHIEF COMPLAINT: Dehydration, diarrhea, GI disturbance HISTORY OF PRESENT ILLNESS: This 77-year-old female patient presents to the emergency department for low sodium/magnesium as per outpatient labs. Patient states that she has had 2 weeks of persistent diarrhea whenever he eats. Is loose, watery. No recent antibiotics. She notes that she had lab work done at an outside facility yesterday which showed low and examined sodium today. She is not sure of exactly what numbers. She was told to come into the ER by her physician. Unable to confirm this lab results as it is outside facility. Otherwise patient states she has no shortness of breath, fever, chills, nausea, vomiting. She does have persistent diarrhea. No abdominal pain, distention REVIEW OF SYSTEMS: A review of systems was performed with positives and pertinent negatives listed in the history of present illness. 10 systems were reviewed and are otherwise negative. ALLERGIES: see below MEDICATIONS: see below PMH: see below SOCIAL HISTORY: see below DDx: Abnormal labs, C. difficile, PHYSICAL EXAM: Vital signs reviewed. General: Well-appearing, in no significant distress. HEENT: No scleral icterus, PERRLA, neck supple. Atraumatic. Cardiovascular: Regular rate and rhythm, no extra sounds. Pulmonary: Clear to auscultation bilaterally, normal work of breathing. Abdomen: Soft, nontender, nondistended, positive bowel sounds. Musculoskeletal: Atraumatic, no peripheral edema. Neurologic: Patient awake alert and oriented x 3, speech is clear Skin: Warm, dry, no rash EMERGENCY DEPARTMENT COURSE/MDM: This is an 77-year-old female presenting for abnormal outpatient lab work as well as diarrhea. Unable to confirm outside lab work. Will repeat here. We will get C. difficile testing as well. Patient has reassuring physical exam without tenderness, distention, normal bowel sounds. Consider gastroenteritis as well The patient's blood work does reveal hyponatremia to 121. Otherwise still waiting on magnesium level. Discussed with hospitalist for admission of persistent diarrhea and hyponatremia. 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 Otherwise patient C. difficile was negative as per hospitalist was able to track the outside lab work. Patient admitted for her SIADH/hyponatremia. RADIOLOGY: None EKG: EKG reviewed by me showing NSR at rate of 77, normal intervals, normal axis, no ST segment elevations, no STEMI criteria met. DISPOSITION: Admitted for hyponatremia, dehydration, persistent diarrhea Past Med/Surg History Medical History (Updated 01/05/23 @ 16:53 by Isidra Campbell MD) Acute non-ST segment elevation myocardial infarction (11/22/10) Benign hypertension (11/22/10) Carotid artery stenosis (11/22/10) Cerebrovascular disease "old lacunar strokes on imaging" Chronic pain Coronary artery disease (11/22/10) DMII (diabetes mellitus, type 2) Gastroesophageal reflux disease (11/22/10) History of adenomatous polyp of colon Hyperlipidemia (11/22/10) Hypomagnesemia Hyponatremia Hypothyroidism (11/22/10) Migraine Osteoarthritis SIADH (syndrome of inappropriate ADH production) Spinal stenosis in cervical region Surgical History Status post coronary artery stent placement Status post hysterectomy Social History Smoking Status: Never smoker Hx Alcohol Use: No Hx Substance Use: No Preferred Language: Dutch Communication Ability: Effective Adjunct Faculty Instructor Required: No Beliefs That Will Affect Care: None Current Living Situation: Alone Current Living Situation Comment: home alone in apt building Feels Safe at Home: Yes Assistive Devices: Cane and Walker Allergies 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 propoxyphene AdvReac Intermediate GI UPSET, Verified 10/20/22 23:42 "DISORIENTED" amoxicillin AdvReac Mild VOMITING, Verified 10/20/22 23:42 GI UPSET baclofen AdvReac Mild disoriented Verified 10/20/22 23:42 nausea capsaicin [Diclopak] AdvReac Mild disoriented Verified 10/20/22 23:42 nausea clavulanic acid AdvReac Mild VOMITING, Verified 10/20/22 23:42 GI UPSET diclofenac [Diclopak] AdvReac Mild disoriented Verified 10/20/22 23:42 nausea Diclopak AdvReac Mild disoriented Verified 06/22/16 00:52 nausea codeine AdvReac Unknown pruritis Verified 10/20/22 23:44 Home Meds Home Medications Medication Instructions Recorded Confirmed amlodipine 2.5 mg tablet 2.5 mg PO PM 10/20/22 01/05/23 aspirin 81 mg tablet,delayed 81 mg PO PM 10/20/22 01/05/23 release atorvastatin 80 mg tablet 80 mg PO PM 10/20/22 01/05/23 ezetimibe 10 mg tablet 10 mg PO QAM 10/20/22 01/05/23 icosapent ethyl 1 gram capsule 2 g PO BIDM 10/20/22 01/05/23 levothyroxine 112 mcg tablet 112 mcg PO DAILYBB 10/20/22 01/05/23 magnesium oxide 400 mg PO BID 10/20/22 01/05/23 metformin 500 mg tablet 500 mg PO QAM 10/20/22 01/05/23 metoprolol succinate 25 mg 25 mg PO QAM 10/20/22 01/05/23 tablet,extended release 24 hr omeprazole 40 mg capsule,delayed 40 mg PO DAILYBB 10/20/22 01/05/23 release topiramate 100 mg tablet See Rx Instructions .Route .COMPLEX 10/20/22 01/05/23 pyridoxine (vitamin B6) 250 mg 250 mg PO .NOON 10/21/22 01/05/23 tablet (Vitamin B-6) apixaban 5 mg tablet (Eliquis) 5 mg PO BID 12/14/22 01/05/23 cholecalciferol (vitamin D3) 125 125 mcg PO .NOON 12/14/22 01/05/23 mcg (5,000 unit) tablet (Vitamin D3) docusate sodium 100 mg capsule 100 mg PO DAILY 12/14/22 01/05/23 (Colace) furosemide 20 mg tablet 20 mg PO .QAM AND NOON 12/14/22 01/05/23 lisinopril 20 mg tablet 20 mg PO QAM 12/14/22 01/05/23 oxcarbazepine 150 mg tablet See Rx Instructions .Route .COMPLEX 12/14/22 01/05/23 (Trileptal) oxcarbazepine 300 mg tablet See Rx Instructions .Route .COMPLEX 12/14/22 01/05/23 (Trileptal) Results & Data (ED) Vital Signs Vital Signs - 24 hr 01/05/23 14:20 01/05/23 14:40 01/05/23 14:54 Temperature 36.2 C L Temperature Source Temporal Artery Scan Pulse Rate 80 75 78 Pulse Rate [Apical] Pulse Rhythm Regular Respiratory Rate 18 Respiratory Depth Normal Blood Pressure 157/68 H Blood Pressure [Left Arm] Blood Pressure Mean 97 Blood Pressure Mean [Left Arm] Blood Pressure Position Sitting Blood Pressure Position [Left Arm] Pulse Oximetry 98 98 Oxygen Delivery Method Room Air Room Air Sepsis Recent Fever Within 48 Hours No Sepsis New/Unexplained Change in Mental Status No Sepsis Action Taken by Nursing No Action Required 01/05/23 15:54 Temperature Temperature Source Pulse Rate Pulse Rate [Apical] 76 Pulse Rhythm Respiratory Rate 20 Respiratory Depth Blood Pressure Blood Pressure [Left Arm] 137/66 Blood Pressure Mean Blood Pressure Mean [Left Arm] 89 Blood Pressure Position Blood Pressure Position [Left Arm] Semi-fowlers Pulse Oximetry 98 Oxygen Delivery Method Sepsis Recent Fever Within 48 Hours Sepsis New/Unexplained Change in Mental Status Sepsis Action Taken by Nursing Laboratory Data 01/05/23 14:35 01/05/23 14:35 Lab Results 01/05/23 01/05/23 01/05/23 Range/Units 14:35 14:35 16:04 WBC 5.68 (4.8-10.8) K/ul RBC 3.15 L (4.20-5.40) M/uL Hgb 9.8 L (12.0-16.0) g/dl Hct 27.2 L (37.0-47.0) % MCV 86.3 (80.0-100.0) fL MCH 31.1 (25.0-34.0) pg MCHC 36.0 (32.0-36.0) g/dL RDW Std Deviation 40.3 (36.4-46.3) fL RDW Coeff of Mine 12.8 (11.5-14.5) % Plt Count 266 (130-400) K/uL MPV 10.9 (9.4-12.4) fL Immature Gran % (Auto) 0.5 % Neut % (Auto) 55.2 % Lymph % (Auto) 33.6 % Ida % (Auto) 10.2 % Eos % (Auto) 0.0 % Baso % (Auto) 0.5 % Neut # (Auto) 3.13 (1.40-6.50) K/uL Lymph # (Auto) 1.91 (1.20-3.40) K/uL Ida # (Auto) 0.58 (0.11-0.59) K/uL Eos # (Auto) 0.00 (0.00-0.50) K/uL Baso # (Auto) 0.03 (0.00-0.20) K/uL Immature Gran # (Auto) 0.03 (0.01-0.20) K/uL Sodium 121 L (136-145) mmol/L Potassium 3.8 (3.5-5.1) mmol/L Chloride 89 L (98-107) mmol/L Carbon Dioxide 22 (21-32) mmol/L Anion Gap 10 (3-11) BUN 17 (6-23) mg/dl Creatinine 1.24 H (0.6-1.2) mg/dl Est Cr Clr Drug Dosing 31.7 ml/min Est GFR ( Amer) 48.2 ml/min Est GFR (Non-Af Amer) 41.6 ml/min BUN/Creatinine Ratio 13.7 (10-20) Glucose 77 (70-99(Fasting)) mg/dl Calcium 9.0 (8.6-10.3) mg/dl Magnesium 1.0 L (1.7-2.4) mg/dl Total Bilirubin 0.4 (0.2-1.0) mg/dl AST 45 H (13-39) U/L ALT 35 (7-52) U/L Alkaline Phosphatase 78 (34-104) U/L Total Protein 6.0 (6.0-8.3) gm/dl Albumin 4.2 (3.4-5.0) gm/dl Globulin 1.8 L (2.5-4.0) gm/dl Albumin/Globulin Ratio 2.3 H (0.9-2) Lipase 46 (11-82) U/L Urine Color Yellow Urine Appearance Clear (Clear) Urine pH 6.5 (4.5-7.5) Ur Specific Marion 1.009 (1.000-1.030) Urine Protein Negative (Negative) Urine Glucose (UA) Negative (Negative) Urine Ketones Negative (Negative) Urine Blood Trace H (Negative) Urine Nitrite Negative (Negative) Urine Bilirubin Negative (Negative) Urine Urobilinogen Negative (Negative) Ur Leukocyte Esterase Trace H (Negative) Urine WBC (Auto) 1-5 (0-5) /hpf Urine RBC (Auto) 0-4 (0-4) /hpf U Hyaline Cast (Auto) 0 (0-5) /lpf U Epithel Cells (Auto) >30 H (0-5) /lpf Urine Bacteria (Auto) 1+ H (Negative) Calcium Oxalate Crystal Present A (None Prsent) Urine Yeast Not Reportable Urine Osmolality (500-800) mOsm/kg Ur Random Sodium mmol/L 01/05/23 01/05/23 Range/Units 16:07 16:07 WBC (4.8-10.8) K/ul RBC (4.20-5.40) M/uL Hgb (12.0-16.0) g/dl Hct (37.0-47.0) % MCV (80.0-100.0) fL MCH (25.0-34.0) pg MCHC (32.0-36.0) g/dL RDW Std Deviation (36.4-46.3) fL RDW Coeff of Mine (11.5-14.5) % Plt Count (130-400) K/uL MPV (9.4-12.4) fL Immature Gran % (Auto) % Neut % (Auto) % Lymph % (Auto) % Ida % (Auto) % Eos % (Auto) % Baso % (Auto) % Neut # (Auto) (1.40-6.50) K/uL Lymph # (Auto) (1.20-3.40) K/uL Ida # (Auto) (0.11-0.59) K/uL Eos # (Auto) (0.00-0.50) K/uL Baso # (Auto) (0.00-0.20) K/uL Immature Gran # (Auto) (0.01-0.20) K/uL Sodium (136-145) mmol/L Potassium (3.5-5.1) mmol/L Chloride (98-107) mmol/L Carbon Dioxide (21-32) mmol/L Anion Gap (3-11) BUN (6-23) mg/dl Creatinine (0.6-1.2) mg/dl Est Cr Clr Drug Dosing ml/min Est GFR ( Amer) ml/min Est GFR (Non-Af Amer) ml/min BUN/Creatinine Ratio (10-20) Glucose (70-99(Fasting)) mg/dl Calcium (8.6-10.3) mg/dl Magnesium (1.7-2.4) mg/dl Total Bilirubin (0.2-1.0) mg/dl AST (13-39) U/L ALT (7-52) U/L Alkaline Phosphatase (34-104) U/L Total Protein (6.0-8.3) gm/dl Albumin (3.4-5.0) gm/dl Globulin (2.5-4.0) gm/dl Albumin/Globulin Ratio (0.9-2) Lipase (11-82) U/L Urine Color Urine Appearance (Clear) Urine pH (4.5-7.5) Ur Specific Marion (1.000-1.030) Urine Protein (Negative) Urine Glucose (UA) (Negative) Urine Ketones (Negative) Urine Blood (Negative) Urine Nitrite (Negative) Urine Bilirubin (Negative) Urine Urobilinogen (Negative) Ur Leukocyte Esterase (Negative) Urine WBC (Auto) (0-5) /hpf Urine RBC (Auto) (0-4) /hpf U Hyaline Cast (Auto) (0-5) /lpf U Epithel Cells (Auto) (0-5) /lpf Urine Bacteria (Auto) (Negative) Calcium Oxalate Crystal (None Prsent) Urine Yeast Urine Osmolality 274 L (500-800) mOsm/kg Ur Random Sodium 60 mmol/L Administered Medications Sodium Chloride (Nss) 500 mls @ 125 mls/hr IV .Q4H DAJA Stop: 02/04/23 16:14 Last Admin: 01/05/23 16:12 Dose: 125 mls/hr Documented By: AB Discharge Plan Visit Data Chief Complaint: Referred by Doctor Stated Complaint: REF BY , WANTS TO ADMIT SODIUM AND MAGNESIUM LOW ED Provider: Isidra Campbell Discharge Problem: Acute hyponatremia Forms Stand Alone Forms: [facility] Prescriptions Prescriptions: No Action metformin 500 mg Tablet 500 mg PO QAM ezetimibe 10 mg Tablet 10 mg PO QAM amlodipine 2.5 mg Tablet 2.5 mg PO PM omeprazole 40 mg Capsule,Delayed Release(Dr/Ec) 40 mg PO DAILYBB Rx Instructions: 1 hour before breakfast atorvastatin 80 mg Tablet 80 mg PO PM aspirin 81 mg Tablet,Delayed Release (Dr/Ec) 81 mg PO PM metoprolol succinate 25 mg Tablet Extended Release 24 Hr 25 mg PO QAM topiramate 100 mg Tablet See Rx Instructions .ROUTE .COMPLEX Rx Instructions: Take 100mg by mouth in the morning, 100mg by mouth at noon and 200mg by mouth at bedtime levothyroxine 112 mcg Tablet 112 mcg PO DAILYBB icosapent ethyl 1 gram Capsule 2 g PO BIDM magnesium oxide 400 mg magnesium Tablet 400 mg PO BID pyridoxine (vitamin B6) [Vitamin B-6] 250 mg Tablet 250 mg PO .NOON oxcarbazepine [Trileptal] 150 mg Tablet See Rx Instructions .ROUTE .COMPLEX Rx Instructions: Take 150mg by mouth with 300mg tablet to equal 450mg twice daily lisinopril 20 mg Tablet 20 mg PO QAM oxcarbazepine [Trileptal] 300 mg Tablet See Rx Instructions .ROUTE .COMPLEX Rx Instructions: Take 300mg by mouth with 150mg tablet to equal 450mg twice daily docusate sodium [Colace] 100 mg Capsule 100 mg PO DAILY cholecalciferol (vitamin D3) [Vitamin D3] 125 mcg (5,000 unit) Tablet 125 mcg PO .NOON Eliquis 5 mg tablet 5 mg PO BID furosemide 20 mg tablet 20 mg PO .QAM AND NOON Referrals Referrals: Naty Fang DO [Primary Care Provider] -
[2023-01-05 15:20] LABS: Basophils # (auto) 0.03 K/uL (0.00-0.20); Basophils % (auto) 0.5 %; Hematocrit (blood only) 27.2 % (37.0-47.0); Hemoglobin 9.8 g/dl (12.0-16.0); Immature Granulocytes # (auto) 0.03 K/uL (0.01-0.20); Immature Granulocytes % (auto) 0.5 %; Lymphocytes # (auto) 1.91 K/uL (1.20-3.40); Lymphocytes % (auto) 33.6 %; Mean Corpuscular Hemoglobin 31.1 pg (25.0-34.0); Mean Corpuscular Volume 86.3 fL (80.0-100.0); Mean Platelet Volume 10.9 fL (9.4-12.4); Monocytes # (auto) 0.58 K/uL (0.11-0.59); Monocytes % (auto) 10.2 %; Neutrophils # (auto) 3.13 K/uL (1.40-6.50); Neutrophils % (auto) 55.2 %; Platelet Count 266 K/uL (130-400); RDW Coefficient of Variation 12.8 % (11.5-14.5); RDW Standard Deviation 40.3 fL (36.4-46.3); Red Blood Count 3.15 M/uL (4.20-5.40); White Blood Count 5.68 K/ul (4.8-10.8)
[2023-01-05 15:33] LABS: Albumin Globulin Ratio 2.3 (0.9-2); Albumin Level 4.2 gm/dl (3.4-5.0); BUN Creatinine Ratio 13.7 (10-20); Bilirubin,Total 0.4 mg/dl (0.2-1.0); Creatinine Clr Calc Pharmacy 31.7 ml/min; Est GFR (African American) 48.2 ml/min; Est GFR (Non-African American) 41.6 ml/min; Globulin 1.8 gm/dl (2.5-4.0); Potassium 3.8 mmol/L (3.5-5.1)
[2023-01-05] MEDS: SODIUM CHLORIDE 0.9% 500 ML IV SCH ×2 (16:12→21:10)
[2023-01-05 16:23] LABS: Appearance Urine Clear (Clear); Bilirubin Urine Negative (Negative); Blood Urine Trace (Negative); Cast Urine Automated 0 /lpf (0-5); Color Urine Yellow; Epithelial Cell Urine Auto >30 /lpf (0-5); Glucose Urine UA Negative (Negative); Ketones Urine Negative (Negative); Leukocyte Esterase Urine Trace (Negative); Nitrite Urine Negative (Negative); Protein Urine Negative (Negative); RBC Urine Automated 0-4 /hpf (0-4); Specific Gravity Urine 1.009 (1.000-1.030); Urobilinogen Urine Negative (Negative); pH Urine 6.5 (4.5-7.5)
[2023-01-05] MEDS ORDERED: DEXTROSE 50% 50 ML SYRINGE IV PRN (16:23)
[2023-01-05] MEDS ORDERED: PHARMACY GLYCEMIC MGMT CONSULT PRN (16:23)
[2023-01-05] MEDS ORDERED: CARBOHYDRATES FOR HYPOGLYCEMIA PO PRN (16:23)
[2023-01-05] MEDS ORDERED: MAGNESIUM HYDROXIDE SUSP 30 ML UDC PO PRN (16:23)
[2023-01-05] MEDS ORDERED: GLUCAGON FOR INJ 1 MG VIAL SQ PRN (16:23)
[2023-01-05] MEDS ORDERED: ACETAMINOPHEN 325 MG TAB PO PRN (16:23)
[2023-01-05] MEDS ORDERED: GLUCOSE 10 TAB/TUBE PO PRN (16:23)
[2023-01-05] MEDS ORDERED: POLYETHYLENE (MIRALAX) 17 GM PACK PO PRN (16:23)
[2023-01-05] MEDS ORDERED: ALUMINUM/MAGNESIUM SUSP 30 ML UDC PO PRN (16:23)
[2023-01-05] MEDS ORDERED: GLUCOSE 40% GEL 15 GM TUBE PO PRN (16:23)
[2023-01-05] MEDS ORDERED: ONDANSETRON INJ 2 MG/ML 2 ML VIAL IV PRN (16:23)
[2023-01-05 16:40] LABS: Bacteria Urine Automated 1+ (Negative); Calcium Oxalate Crystals Urine Present (None Prsent)
--- NOTE | 2023-01-05 16:40 | History & Physical Report ---
Date of Service January 05, 2023 Assessment & Plan (1) SIADH (syndrome of inappropriate ADH production): (2) Hyponatremia: (3) Hypomagnesemia: (4) Coronary artery disease: (5) DMII (diabetes mellitus, type 2): (6) Gastroesophageal reflux disease: (7) Osteoarthritis: (8) Hyperlipidemia: (9) Hypothyroidism: (10) Chronic pain: (11) Diarrhea: Plan 77-year-old female presents as recommended by her outpatient PCP for electrolyte imbalance on outpatient labs; hyponatremia with serum sodium 121, hypomagnesemia mag 1.0. Patient with diarrhea over the last 2 weeks and known history of SIADH with an inpatient hospitalization 10/21 to 10/11/2025 with hyponatremia. Will check stool studies, FOBT, correct sodium with IVf, Replace Mg+ and check anemia studies, and consult with Nephrology as patient is known to their service. On Eliquis for history of DVT. Obtain LLE doppler US to rule out DVT. Hyponatremia: History of SIADH: Acute uncontrolled Serum sodium 121; IV fluids @ 125 mL/hour x2 bags; recheck BMP at 2100 Urine osmo: 274, urine Na+ 60 Hold diuretics Fluid Restriction 1800mL Consult Nephrology Hypomagnesemia: Acute uncontrolled Mag as outpatient 1.3; today in ED 1.0; replace with 2G Recheck mag at 2100 Diarrhea: Acute uncontrolled Likely because of electrolyte imbalance Outpatient stool studies 01/04/2023; negative for C. difficile and Giardia Retest today and add FOBT Placed on probiotics Chronic Anemia: Baseline Hgb around 11 11/22/22 Hgb 10.9--> 01/04 9.6, today 9.8 Will check FOBT CAD: chronic stable status post stent placement History of DVT: Chronic stable Was at [facility] and initial DVT LLE while at rehab in November 2022 Takes Eliquis; continue Diabetes mellitus type 2: Chronic stable Takes metformin; hold while inpatient Place on on SSI FSBS 09/2022 A1c 5.9 Hypothyroidism: Chronic stable Last TSH 01/04 1.76 Continue home levothyroxine Osteoarthritis: Chronic pain: Chronic stable Takes Trileptal; continue HLD: Chronic stable Takes Zetia and atorvastatin; continue Fasting lipid panel in a.m. Disposition: PCP: Dr. Felton CODE STATUS: Full code VTE prophylaxis: On Eliquis I spent a total of 87 minutes coordinating, documenting, and providing care for this patient excluding time spent in the performance of separately billed services. All of the aforementioned completed while collaborating with the assigned attending physician for a full treatment plan. Please see their addendum for further details. History of Present Illness Chief Complaint: Abnormal labs; hypomagnesemia, hyponatremia Primary Care Provider: Naty Fang DO Ms. Bustillo is a 77-year-old female that presented to the emergency room as recommended by her PCP for electrolyte imbalance noted on outpatient labs drawn yesterday 01/04. Serum sodium 121, magnesium 1.3. Reports having diarrhea over the past 2 weeks; mostly watery but over the past few days has been noted to be darker in color. No emil red blood. Patient with known history of SIADH and recent inpatient hospitalization 10/21 to 10/30 with hyponatremia. Additional inpatient stay from 12/14 to 12/21 that included a fall. Stool studies obtained as outpatient 01/04 and negative for Cryptosporidium, Giardia and C. difficile. Past medical history significant for CAD status post stent, history of DVT on Eliquis, CVA, HTN, HLD, [id number] diabetes mellitus, chronic hyponatremia, chronic anemia, osteoarthritis, and PVD. [place] [facility] [place] leukocytosis, hemoglobin 9.8 down from 10.9 11/22/2022, sodium 121, magnesium 1.0, creatinine 1.24 (baseline 1.2-1.4), urine osmolality 274, urine sodium 60. We will repeat stool studies including C. difficile, placed on fluid restriction 1800 mils, check FOB see and anemia work-up, placed on probiotics and hold diuretics. Patient denies headache, dizziness, chest pain, palpitations, abdominal pain or tenderness, urinary changes, auditory or visual changes, peripheral neuropathy, recent falls or trauma since last admission. On examination AAOx4, in no apparent distress, lungs CTA, normal heart sounds S1-S2 without rub or murmur. Hypervolemic right lower extremity +2 pitting edema greater than left +1. Due to known history of DVT will obtain venous Doppler studies of right lower extremity. Patient will be admitted for further evaluation and management. Please see A/P for further details. 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 HER [employer] propoxyphene AdvReac Intermediate GI UPSET, Verified 10/20/22 23:42 "DISORIENTED" amoxicillin AdvReac Mild VOMITING, Verified 10/20/22 23:42 GI UPSET baclofen AdvReac Mild disoriented Verified 10/20/22 23:42 nausea capsaicin [Diclopak] AdvReac Mild disoriented Verified 10/20/22 23:42 nausea clavulanic acid AdvReac Mild VOMITING, Verified 10/20/22 23:42 GI UPSET diclofenac [Diclopak] AdvReac Mild disoriented Verified 10/20/22 23:42 nausea Diclopak AdvReac Mild disoriented Verified 06/22/16 00:52 nausea codeine AdvReac Unknown pruritis Verified 10/20/22 23:44 Home Medications Medication Instructions Recorded Confirmed Type amlodipine 2.5 mg tablet 2.5 mg PO PM 10/20/22 01/05/23 History aspirin 81 mg tablet,delayed 81 mg PO PM 10/20/22 01/05/23 History release atorvastatin 80 mg tablet 80 mg PO PM 10/20/22 01/05/23 History ezetimibe 10 mg tablet 10 mg PO QAM 10/20/22 01/05/23 History icosapent ethyl 1 gram capsule 2 g PO BIDM 10/20/22 01/05/23 History levothyroxine 112 mcg tablet 112 mcg PO DAILYBB 10/20/22 01/05/23 History magnesium oxide 400 mg PO BID 10/20/22 01/05/23 History metformin 500 mg tablet 500 mg PO QAM 10/20/22 01/05/23 History metoprolol succinate 25 mg 25 mg PO QAM 10/20/22 01/05/23 History tablet,extended release 24 hr omeprazole 40 mg capsule,delayed 40 mg PO DAILYBB 10/20/22 01/05/23 History release topiramate 100 mg tablet See Rx Instructions .Route .COMPLEX 10/20/22 01/05/23 History pyridoxine (vitamin B6) 250 mg 250 mg PO .NOON 10/21/22 01/05/23 History tablet (Vitamin B-6) apixaban 5 mg tablet (Eliquis) 5 mg PO BID 12/14/22 01/05/23 History cholecalciferol (vitamin D3) 125 125 mcg PO .NOON 12/14/22 01/05/23 History mcg (5,000 unit) tablet (Vitamin D3) docusate sodium 100 mg capsule 100 mg PO DAILY 12/14/22 01/05/23 History (Colace) furosemide 20 mg tablet 20 mg PO .QAM AND NOON 12/14/22 01/05/23 History lisinopril 20 mg tablet 20 mg PO QAM 12/14/22 01/05/23 History oxcarbazepine 150 mg tablet See Rx Instructions .Route .COMPLEX 12/14/22 01/05/23 History (Trileptal) oxcarbazepine 300 mg tablet See Rx Instructions .Route .COMPLEX 12/14/22 01/05/23 History (Trileptal) Past Med/Surg History Medical History (Updated 01/05/23 @ 17:36 by BECK Issa) Acute non-ST segment elevation myocardial infarction (11/22/10) Benign hypertension (11/22/10) Carotid artery stenosis (11/22/10) Cerebrovascular disease "old lacunar strokes on imaging" Chronic pain Coronary artery disease (11/22/10) Diarrhea DMII (diabetes mellitus, type 2) Gastroesophageal reflux disease (11/22/10) History of adenomatous polyp of colon Hyperlipidemia (11/22/10) Hypomagnesemia Hyponatremia Hypothyroidism (11/22/10) Migraine Osteoarthritis SIADH (syndrome of inappropriate ADH production) Spinal stenosis in cervical region Surgical History Status post coronary artery stent placement Status post hysterectomy Social History Smoking Status: Never smoker Hx Alcohol Use: No Hx Substance Use: No Preferred Language: Ugandan Communication Ability: Effective Opinion Polls Survey Worker Required: No Beliefs That Will Affect Care: None Current Living Situation: Alone Current Living Situation Comment: home alone in apt building Feels Safe at Home: Yes Assistive Devices: Cane and Walker Review of Systems Review of Systems: Neuro: (-) Falls, trauma, slurred speech HEENT: (-) ARZOLA, dizziness, dysphagia, visual or auditory changes CV: (-) CP, palpitations, (+) bilateral lower extremity swelling right greater than left Resp: (-) SOB GI: (-) appetite changes, N/V/D, (+) diarrhea : (-) urinary changes Skin: (-) rashes Psych: (-) anxiety, depression Physical Exam Physical Exam: Neuro: AAOx4, PERRLA, no aphagia, memory changes, CNII-XII grossly intact HEENT: head normocephalic, moist mucus membranes CV: S1/S2, (-) M/G/R, (-) edema, cap refill < 3 seconds Resp: Lungs CTA in all borja. On RA GI: Abdomen S/NT/ND, Ax4 bowel sounds, (-) CVA tenderness Musculoskeletal: 5/5 B/L UE strength, 5/5 B/L LE strength. No gait disturbance Skin: (-) rashes , (-) erythema. Psych: euthymic mood Results & Data Results & Data Vital Signs (Past 12 Hours) Vital Signs Temp Pulse Pulse Resp BP BP Pulse Ox 01/05/23 15:54 76 20 137/66 98 01/05/23 14:54 78 98 01/05/23 14:40 75 01/05/23 14:20 36.2 C L 80 18 157/68 H 98 O2 Del Method 01/05/23 15:54 01/05/23 14:54 Room Air 01/05/23 14:40 01/05/23 14:20 Room Air Laboratory Results Short CBC 01/05/23 Range/Units 14:35 WBC 5.68 (4.8-10.8) K/ul Hgb 9.8 L (12.0-16.0) g/dl Hct 27.2 L (37.0-47.0) % Plt Count 266 (130-400) K/uL BMP 01/05/23 14:35 Sodium 121 L Potassium 3.8 Chloride 89 L Carbon Dioxide 22 BUN 17 Creatinine 1.24 H Glucose 77 Calcium 9.0 Liver Function 01/05/23 Range/Units 14:35 Total Bilirubin 0.4 (0.2-1.0) mg/dl AST 45 H (13-39) U/L ALT 35 (7-52) U/L Alkaline Phosphatase 78 (34-104) U/L Albumin 4.2 (3.4-5.0) gm/dl Urine 01/05/23 Range/Units 16:04 Urine Color Yellow Urine Appearance Clear (Clear) Urine pH 6.5 (4.5-7.5) Ur Specific [place] 1.009 (1.000-1.030) Urine Protein Negative (Negative) Urine Glucose (UA) Negative (Negative) Code Status & VTE Plan Code Status Full code in the event of cardiac or respiratory arrest VTE Prophylaxis Plan VTE Prophylaxis will be ordered: Yes Supervising Physician Co-Signing Physician Notes Pt seen and examined by me, care coordinated w/ E. BECK Rapp, pls refer to her note above for further detail. Pt is a 77 yo F who presents with electrolyte imbalance noted on outpatient labs drawn yesterday 01/04. Serum sodium 121, magnesium 1.3. Pt reports having diarrhea over the past 2 weeks; mostly watery but over the past few days has been noted to be darker in color. No emil red blood. Patient with known history of SIADH and recent inpatient hospitalization 10/21 to 10/30 with hyponatremia. Additional inpatient stay from 12/14 to 12/21 that included a fall. Stool studies obtained as outpatient 01/04 and negative for Cryptosporidium, Giardia and C. difficile. Past medical history significant for CAD status post stent, history of DVT on Eliquis, CVA, HTN, HLD, [id number] diabetes mellitus, chronic hyponatremia, chronic anemia, osteoarthritis, and PVD. Currently pt is alert, oriented and answering appropriately, in NAD. Lungs CTAB, heart sounds regular. Abdomen soft, nontender to palp. RLE edema noted. Skin is warm and dry. Pt moves extremities. In ED sodium 121, magnesium 1.0, creatinine 1.2. Received NS in ED. Will replete Mag. Re-check BMP and Mag this evening. Obtain stool studies including C. difficile, check FOBT, anemia work-up, start on probiotics. Will further discuss hyponatremia w/ nephrology in the morning. MD Rosemary
[2023-01-05] MEDS ORDERED: OXcarbazepine 150 MG TABLET PO SCH (17:00)
[2023-01-05] MEDS: MAGNESIUM SULFATE / D5W 1 GM/100 ML BAG IV SCH ×2 (17:08→19:02)
[2023-01-05] MEDS: INSULIN ASPART PER UNIT CHARGE SC SCH ×2 (17:15→21:18)
[2023-01-05] MEDS: SACCHAROMYCES BOULARDII 250 MG CAP PO SCH (17:53)
[2023-01-05] MEDS: CHOLECALCIFEROL 5,000 UNITS 125 MCG TAB PO SCH (17:54)
[2023-01-05] MEDS ORDERED: LANTUS PER UNIT CHARGE SQ SCH (21:00)
[2023-01-05 21:04] LABS: Adenovirus F 40/41 PCR Not Detected (NotDetected); Astrovirus PCR Not Detected (NotDetected); Campylobacter PCR Not Detected (NotDetected); Cryptosporidium PCR Not Detected (NotDetected); Cyclospora cayetanensis PCR Not Detected (NotDetected); Entamoeba histolytica PCR Not Detected (NotDetected); Enteroaggregative E.coli(EAEC) Not Detected (NotDetected); Enteropathogenic E.coli (EPEC) Not Detected (NotDetected); Enterotoxigenic E.coli (ETEC) Not Detected (NotDetected); Giardia lamblia PCR Not Detected (NotDetected); Norovirus GI/GII PCR Not Detected (NotDetected); Plesiomonas shigelloides PCR Not Detected (NotDetected); Rotavirus A PCR Not Detected (NotDetected); Salmonella PCR Not Detected (NotDetected); Sapovirus PCR Not Detected (NotDetected); Shiga-like Toxin E.coli (STEC) Not Detected (NotDetected); Shigella/Enteroinvasive E.coli Not Detected (NotDetected); Vibrio cholerae PCR Not Detected (NotDetected); Vibrio species PCR Not Detected (NotDetected); Yersinia enterocolitica PCR Not Detected (NotDetected)
[2023-01-05] MEDS: amLODIPine BESYLATE 5 MG TAB PO SCH (21:12)
[2023-01-05] MEDS: ASPIRIN 81 MG ECTAB PO SCH (21:14)
[2023-01-05] MEDS: ATORVASTATIN 40 MG TAB PO SCH (21:15)
[2023-01-05] MEDS: APIXABAN 5 MG TABLET PO SCH (21:16)
[2023-01-05] MEDS: TOPIRAMATE 100 MG TAB PO SCH (21:17)
[2023-01-05] MEDS: OXcarbazepine 150 MG TABLET PO SCH (21:20)
[2023-01-05 22:06] LABS: Calcium 8.1 mg/dl (8.6-10.3); Potassium 3.4 mmol/L (3.5-5.1)
[2023-01-05 22:12] LABS: BUN Creatinine Ratio 14.6 (10-20); Creatinine Clr Calc Pharmacy 38.1 ml/min; Est GFR (African American) 60.3 ml/min
--- NOTE | 2023-01-05 23:07 | Ultrasound Report ---
ULTRASOUND RIGHT LOWER EXTREMITY VENOUS CLINICAL HISTORY: Right lower extremity edema. Reported history of DVT. COMPARISON STUDY: No priors. TECHNIQUE: Real-time, grayscale, and color Doppler sonography of the deep veins of the right lower ex tremity was performed from the inguinal crease to the calf. Compression and augmentation were utilize d. FINDINGS: There is no sonographic evidence of deep venous thrombosis identified in the right lower ex tremity. The common femoral, superficial femoral, and popliteal veins are patent and normally katelin sible. The greater saphenous vein and the profunda femoris vein at the junction with the common femor al vein are clear. The visualized calf veins are patent. IMPRESSION: There is no sonographic evidence of deep venous thrombosis identified in the right lower extremity. ACT 112: Negative or not required by law. Electronically signed by: Manoj Burns M.D. 01/05/2023 11:04 PM
[2023-01-06] MEDS: TOPIRAMATE 100 MG TAB PO SCH ×3 (06:10→20:25)
[2023-01-06] MEDS: LEVOTHYROXINE SODIUM 112 MCG TABLET PO SCH (06:10)
[2023-01-06] MEDS ORDERED: PANTOprazole 40 MG TAB PO SCH (06:30)
[2023-01-06] MEDS ORDERED: POTASSIUM CHLORIDE CRTAB 20 MEQ TABCR PO STA (07:00)
--- NOTE | 2023-01-06 07:09 | Nephrology Consultation ---
Date of Consultation January 06, 2023 Assessment & Plan (1) Hyponatremia: presenting sodium 121 at 1430 on 01/05. up to 124 this am after essentially 600 mL net NS (had 1L NS, got 400 mL D5W w/ riders). pt w/ chronic hyponatremia usually from low solute diet presenting w/ diarrhea / volume depletion/low so lute diet by hx. would expect uOsms w/ either vol depletion or SIADH to be significantly higher than she has. -goal sNa tomorrow AM is 130 or less -tightened FR 1.8 > 1.2 L, toward which protein shakes don't count -will give another 500 mL NS w/ 20 mEq of K and recheck sNa 1700 -will start K po at 20 mEQ bid -maintain eukalemia (2) Hypomagnesemia: mag 1.0 on admission 01/05; improved to 1.8 > 1.5 today. -cont to hold stool softeners -changed mag ox to slo mag bid for better absorption/lower diarrhea risk (po mag may worsen diarrhea) -continue to check daily and replete IV prn History of Present Illness Reason for Consultation: SIADH Requesting Physician: Dr Riley Attending Physician: Luis Riley MD History of Present Illness 77 y/o F whom I'm asked to see for SIADH was admitted yesterday afternoon from home after being sent to the ER d/t abnormal labs, including serum sodium 121 and mag 1.3 in the setting of 2 wks of diarrhea. PMHx remarkable for CAD s/p stent, hx of DVT on eliquis, PVD, CVA, HTN, HLD, T2DM, hypothyroidism, chronic hyponatremia, chronic anemia [baseline hemoglobin around 11], GERD, mood disorder, chronic pain and lower extremity edema. Pt states that since last hospital d/c she has had daily diarrhea, uncontrolled, limits her from leaving house d/t concerns about fecal urgency. does also tell me she takes a stool softener daily and was reluctant to stop d/t concerns about constipation. also on bid mag. no f/c, no n/v. no abdominal pain or cramping. endorses minimal po intake since po "goes right through me." no sob, no worrisome edema, no new/worrisome voiding c/o. No BM since arrival here yester day; also only just took first meal midday today right before our conversation since arrival she has had about 1 L of NS; also had 4 x 1 gm mag riders, totaling 400 mL D5W. She had 20 mEq po K this aM x 1. Today sodium is 124 and K 3.5 on am labs. 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 HER [employer] UP OPERATOR propoxyphene AdvReac Intermediate GI UPSET, Verified 10/20/22 23:42 "DISORIENTED" amoxicillin AdvReac Mild VOMITING, Verified 10/20/22 23:42 GI UPSET baclofen AdvReac Mild disoriented Verified 10/20/22 23:42 nausea capsaicin [Diclopak] AdvReac Mild disoriented Verified 10/20/22 23:42 nausea clavulanic acid AdvReac Mild VOMITING, Verified 10/20/22 23:42 GI UPSET diclofenac [Diclopak] AdvReac Mild disoriented Verified 10/20/22 23:42 nausea Diclopak AdvReac Mild disoriented Verified 06/22/16 00:52 nausea codeine AdvReac Unknown pruritis Verified 10/20/22 23:44 Home Medications Medication Instructions Recorded Confirmed Type amlodipine 2.5 mg tablet 2.5 mg PO PM 10/20/22 01/05/23 History aspirin 81 mg tablet,delayed 81 mg PO PM 10/20/22 01/05/23 History release atorvastatin 80 mg tablet 80 mg PO PM 10/20/22 01/05/23 History ezetimibe 10 mg tablet 10 mg PO QAM 10/20/22 01/05/23 History icosapent ethyl 1 gram capsule 2 g PO BIDM 10/20/22 01/05/23 History levothyroxine 112 mcg tablet 112 mcg PO DAILYBB 10/20/22 01/05/23 History magnesium oxide 400 mg PO BID 10/20/22 01/05/23 History metformin 500 mg tablet 500 mg PO QAM 10/20/22 01/05/23 History metoprolol succinate 25 mg 25 mg PO QAM 10/20/22 01/05/23 History tablet,extended release 24 hr omeprazole 40 mg capsule,delayed 40 mg PO DAILYBB 10/20/22 01/05/23 History release topiramate 100 mg tablet See Rx Instructions .Route .COMPLEX 10/20/22 01/05/23 History pyridoxine (vitamin B6) 250 mg 250 mg PO .NOON 10/21/22 01/05/23 History tablet (Vitamin B-6) apixaban 5 mg tablet (Eliquis) 5 mg PO BID 12/14/22 01/05/23 History cholecalciferol (vitamin D3) 125 125 mcg PO .NOON 12/14/22 01/05/23 History mcg (5,000 unit) tablet (Vitamin D3) docusate sodium 100 mg capsule 100 mg PO DAILY 12/14/22 01/05/23 History (Colace) furosemide 20 mg tablet 20 mg PO .QAM AND NOON 12/14/22 01/05/23 History lisinopril 20 mg tablet 20 mg PO QAM 12/14/22 01/05/23 History oxcarbazepine 150 mg tablet See Rx Instructions .Route .COMPLEX 12/14/22 01/05/23 History (Trileptal) oxcarbazepine 300 mg tablet See Rx Instructions .Route .COMPLEX 12/14/22 3 History (Trileptal) Patient History Medical History Acute non-ST segment elevation myocardial infarction (11/22/10) Benign hypertension (11/22/10) Carotid artery stenosis (11/22/10) Cerebrovascular disease "old lacunar strokes on imaging" Chronic pain Coronary artery disease (11/22/10) Diarrhea DMII (diabetes mellitus, type 2) Gastroesophageal reflux disease (11/22/10) History of adenomatous polyp of colon Hyperlipidemia (11/22/10) Hypomagnesemia Hyponatremia Hypothyroidism (11/22/10) Migraine Osteoarthritis SIADH (syndrome of inappropriate ADH production) Spinal stenosis in cervical region Surgical History Status post coronary artery stent placement Status post hysterectomy Social History Smoking Status: Former smoker Second Hand Exposure: No; Do You Dip or Chew Tobacco: No; Tobacco Cessation Education Requested by Patient: No Hx Alcohol Use: No Hx Substance Use: No Preferred Language: Croatian Communication Ability: Effective Warehouse Examiner Required: No Beliefs That Will Affect Care: None Current Living Situation: Alone Current Living Situation Comment: home alone in apt building Feels Safe at Home: Yes Safety Concerns: Feels Safe At This Time Assistive Devices: Cane and Walker Review of Systems Review of Systems: All systems reviewed & are unremarkable except as noted in HPI & below Physical Exam Constitutional: well developed and well nourished Eyes: EOM intact bilaterally ENMT: Ears: no external ear abnormality Nose: no external nose abnormality Mouth: + dry oral mucous membranes Neck: no nuchal rigidity Respiratory: normal respiratory effort Auscultation: + diminished lung sounds Cardiovascular: Rate/Rhythm: regular rate and regular rhythm Heart Sounds: + murmur Extremities: + edema (RLE) Gastrointestinal (Abdomen): Inspection/Auscultation: normal bowel sounds Percussion/Palpation: abdomen soft; abdomen nontender Musculoskeletal: Extremities: strength 5/5 throughout Skin: no rashes, warm and dry L pretibial scabbed ulcer Neurologic: aaron, fluent speech, no tremor Results & Data Vital Signs (Past 12 Hours) Vital Signs Temp Pulse Resp BP Pulse Ox O2 Del Method 01/06/23 04:01 36.5 C 78 16 128/62 98 Room Air 01/05/23 23:39 36.3 C L 78 16 140/65 98 Room Air 01/05/23 20:14 36.4 C L 72 18 130/72 100 Room Air 01/05/23 19:16 Room Air Laboratory Results 01/06/23 06:28 01/06/23 06:35 u OSM 274 Beto 60 mag 1.0 > 1.8 > 1.5 Diagnostic Findings no RLE dvt no CXR
[2023-01-06 07:27] LABS: Hematocrit (blood only) 25.4 % (37.0-47.0); Mean Corpuscular Hgb Conc 35.4 g/dL (32.0-36.0); Mean Corpuscular Volume 87.6 fL (80.0-100.0); Mean Platelet Volume 10.5 fL (9.4-12.4); Platelet Count 242 K/uL (130-400); RDW Coefficient of Variation 12.7 % (11.5-14.5); RDW Standard Deviation 41.1 fL (36.4-46.3); White Blood Count 3.27 K/ul (4.8-10.8)
[2023-01-06] MEDS: EZETIMIBE 10 MG TAB PO SCH (08:08)
[2023-01-06] MEDS: SACCHAROMYCES BOULARDII 250 MG CAP PO SCH (08:08)
[2023-01-06 08:09] LABS: Magnesium 1.5 mg/dl (1.7-2.4); Phosphorus 2.8 mg/dl (2.5-4.9)
[2023-01-06] MEDS: lisinopril 20 MG TAB PO SCH (08:09)
[2023-01-06] MEDS: OXcarbazepine 150 MG TABLET PO SCH ×2 (08:09→20:29)
[2023-01-06 08:10] LABS: Albumin Level 3.4 gm/dl (3.4-5.0); Bilirubin,Total 0.4 mg/dl (0.2-1.0); Calcium 8.4 mg/dl (8.6-10.3); Potassium 3.5 mmol/L (3.5-5.1)
[2023-01-06] MEDS: METOPROLOL SUCC 25MG EXT REL TAB PO SCH (08:10)
[2023-01-06] MEDS: APIXABAN 5 MG TABLET PO SCH ×2 (08:10→20:26)
[2023-01-06] MEDS: INSULIN ASPART PER UNIT CHARGE SC SCH (08:15)
[2023-01-06 08:16] LABS: Albumin Globulin Ratio 1.9 (0.9-2); BUN Creatinine Ratio 11.1 (10-20); Creatinine Clr Calc Pharmacy 39.7 ml/min; Est GFR (African American) 63.3 ml/min; Est GFR (Non-African American) 54.6 ml/min; Globulin 1.8 gm/dl (2.5-4.0); Total Protein 5.2 gm/dl (6.0-8.3)
[2023-01-06 09:03] LABS: Estimated Average Glucose 103 mg/dl; Hemoglobin A1C 5.2 % (4.5-5.6)
--- NOTE | 2023-01-06 10:39 | Hospitalist Progress Note ---
Date of Service January 06, 2023 Assessment & Plan (1) SIADH (syndrome of inappropriate ADH production): (2) Hyponatremia: (3) Hypomagnesemia: (4) Coronary artery disease: (5) DMII (diabetes mellitus, type 2): (6) Gastroesophageal reflux disease: (7) Osteoarthritis: (8) Hyperlipidemia: (9) Hypothyroidism: (10) Chronic pain: (11) Diarrhea: Plan 77-year-old female presents as recommended by her outpatient PCP for electrolyte imbalance on outpatient labs; hyponatremia with serum sodium 121, hypomagnesemia mag 1.0. Patient with diarrhea over the last 1 week and known history of SIADH with an inpatient hospitalization 10/21 to 10/11/2025 with hyponatremia. . On Eliquis for history of DVT. Hyponatremia: History of SIADH: Acute uncontrolled Serum sodium of 121 on admission; slightly improved to 122 today. Urinalysis is suggestive of SIADH. Will initiate fluid restriction of 1200 cc.. Will likely need oral urea/diuretic.; will defer to nephrology. Hypomagnesemia: Acute uncontrolled Magnesium of 1.0 on admission; Improved to 1.5. Will order 2 g of IV magnesium; also placed on oral magnesium Diarrhea: Acute uncontrolled Likely because of electrolyte imbalance C. difficile and GI PCR negative. Fecal occult blood positive. Hemoglobin is stable around 8-9. Started on Protonix twice daily. Patient is on Eliquis and aspirin. Fairly recent DVT on November 2022; GI consulted for persistence severe diarrhea and fecal occult positive Chronic Anemia: Baseline Hgb around 11 Slightly down trended to 9 today. CAD: chronic stable status post stent placement History of DVT: Chronic stable Was at [facility] and initial DVT LLE while at rehab in November 2022 Takes Eliquis; continue Diabetes mellitus type 2: Chronic stable Takes metformin; hold while inpatient Place on on SSI FSBS 09/2022 A1c 5.9 Hypothyroidism: Chronic stable Last TSH 01/04 1.76 Continue home levothyroxine Osteoarthritis: Chronic pain: Chronic stable Takes Trileptal; continue HLD: Chronic stable Takes Zetia and atorvastatin; continue Disposition: PCP: Dr. Felton CODE STATUS: Full code VTE prophylaxis: On Eliquis Time spent evaluating patient, direct bedside care, chart review, placing orders, interpretation of diagnostic studies, discussion with consultants, patient, and family members, as well as other required patient management activities is 60 minutes. Please note the above document was generated using voice recognition software. It may contain grammatical, syntax or spelling errors. Any formal questions or concerns about the content, text or information contained within the body of this dictation should be directly addressed to the provider for clarification Admission and Anticipated Discharge Date Admission Date: January 05, 2023 Subjective Seen and examined at bedside. She is sitting up on the bed; not in distress. Reports having diarrhea. No abdominal pain or discomfort. She is alert oriented x3. Review of Systems Review of Systems: All systems reviewed & are unremarkable except as noted in Subjective Physical Exam Physical Exam: Constitutional: Alert orient x3; not in distress. Respiratory: Bilateral vesicular breath sound. Cardiovascular: RRR, no murmur, no edema Vessels: no JVD or carotid bruit Chest: normal inspection of chest Abdomen: normal bowel sounds, soft, nontender, no hepatosplenomegaly Musculoskeletal: no cyanosis or clubbing, extremities motor strength 5/5 Skin: no rashes, warm and dry normal turgor Neurologic: PERRL, EOMI, accommodation nl, no face palsy, no dysarthria CN's II- XI intact bilaterally and moves all extremities Psychiatric: A+Ox3, euthymic affect Results & Data Results & Data Vital Signs (Past 12 Hours) Vital Signs Temp Pulse Resp BP Pulse Ox O2 Del Method 01/06/23 07:27 36.5 C 72 21 133/66 96 Room Air 01/06/23 04:01 36.5 C 78 16 128/62 98 Room Air 01/05/23 23:39 36.3 C L 78 16 140/65 98 Room Air Laboratory Results Laboratory Results WBC 3.27 K/ul (4.8-10.8) L 01/06/23 06:28 RBC 2.90 M/uL (4.20-5.40) L 01/06/23 06:28 Hgb 9.0 g/dl (12.0-16.0) L 01/06/23 06:28 Hct 25.4 % (37.0-47.0) L 01/06/23 06:28 MCV 87.6 fL (80.0-100.0) 01/06/23 06:28 MCH 31.0 pg (25.0-34.0) 01/06/23 06:28 MCHC 35.4 g/dL (32.0-36.0) 01/06/23 06:28 RDW Std Deviation 41.1 fL (36.4-46.3) 01/06/23 06:28 RDW Coeff of Mine 12.7 % (11.5-14.5) 01/06/23 06:28 Plt Count 242 K/uL (130-400) 01/06/23 06:28 MPV 10.5 fL (9.4-12.4) 01/06/23 06:28 Immature Gran % (Auto) 0.5 % 01/05/23 14:35 Neut % (Auto) 55.2 % 01/05/23 14:35 Lymph % (Auto) 33.6 % 01/05/23 14:35 Cataño % (Auto) 10.2 % 01/05/23 14:35 Eos % (Auto) 0.0 % 01/05/23 14:35 Baso % (Auto) 0.5 % 01/05/23 14:35 Neut # (Auto) 3.13 K/uL (1.40-6.50) 01/05/23 14:35 Lymph # (Auto) 1.91 K/uL (1.20-3.40) 01/05/23 14:35 Cataño # (Auto) 0.58 K/uL (0.11-0.59) 01/05/23 14:35 Eos # (Auto) 0.00 K/uL (0.00-0.50) 01/05/23 14:35 Baso # (Auto) 0.03 K/uL (0.00-0.20) 01/05/23 14:35 Immature Gran # (Auto) 0.03 K/uL (0.01-0.20) 01/05/23 14:35 Sodium 124 mmol/L (136-145) L 01/06/23 06:35 Potassium 3.5 mmol/L (3.5-5.1) 01/06/23 06:35 Chloride 95 mmol/L (98-107) L 01/06/23 06:35 Carbon Dioxide 23 mmol/L (21-32) 01/06/23 06:35 Anion Gap 6 (3-11) 01/06/23 06:35 BUN 11 mg/dl (6-23) 01/06/23 06:35 Creatinine 0.99 mg/dl (0.6-1.2) 01/06/23 06:35 Est Cr Clr Drug Dosing 39.7 ml/min 01/06/23 06:35 Est GFR ( Amer) 63.3 ml/min 01/06/23 06:35 Est GFR (Non-Af Amer) 54.6 ml/min 01/06/23 06:35 BUN/Creatinine Ratio 11.1 (10-20) 01/06/23 06:35 Glucose 71 mg/dl (70-99(Fasting)) 01/06/23 06:35 POC Glucose 148 mg/dl (70-99) H 01/06/23 09:27 Estimat Average Glucose 103 mg/dl 01/06/23 06:28 Hemoglobin A1c 5.2 % (4.5-5.6) 01/06/23 06:28 Calcium 8.4 mg/dl (8.6-10.3) L 01/06/23 06:35 Phosphorus 2.8 mg/dl (2.5-4.9) 01/06/23 06:28 Magnesium 1.5 mg/dl (1.7-2.4) L 01/06/23 06:28 Total Bilirubin 0.4 mg/dl (0.2-1.0) 01/06/23 06:35 AST 37 U/L (13-39) 01/06/23 06:35 ALT 28 U/L (7-52) 01/06/23 06:35 Alkaline Phosphatase 67 U/L (34-104) 01/06/23 06:35 Total Creatine Kinase 158 U/L (26-192) 01/05/23 14:35 Total Protein 5.2 gm/dl (6.0-8.3) L 01/06/23 06:35 Albumin 3.4 gm/dl (3.4-5.0) 01/06/23 06:35 Globulin 1.8 gm/dl (2.5-4.0) L 01/06/23 06:35 Albumin/Globulin Ratio 1.9 (0.9-2) 01/06/23 06:35 Lipase 46 U/L (11-82) 01/05/23 14:35 Urine Color Yellow 01/05/23 16:04 Urine Appearance Clear (Clear) 01/05/23 16:04 Urine pH 6.5 (4.5-7.5) 01/05/23 16:04 Ur Specific [place] 1.009 (1.000-1.030) 01/05/23 16:04 Urine Protein Negative (Negative) 01/05/23 16:04 Urine Glucose (UA) Negative (Negative) 01/05/23 16:04 Urine Ketones Negative (Negative) 01/05/23 16:04 Urine Blood Trace (Negative) H 01/05/23 16:04 Urine Nitrite Negative (Negative) 01/05/23 16:04 Urine Bilirubin Negative (Negative) 01/05/23 16:04 Urine Urobilinogen Negative (Negative) 01/05/23 16:04 Ur Leukocyte Esterase Trace (Negative) H 01/05/23 16:04 Urine WBC (Auto) 1-5 /hpf (0-5) 01/05/23 16:04 Urine RBC (Auto) 0-4 /hpf (0-4) 01/05/23 16:04 U Hyaline Cast (Auto) 0 /lpf (0-5) 01/05/23 16:04 U Epithel Cells (Auto) >30 /lpf (0-5) H 01/05/23 16:04 Urine Bacteria (Auto) 1+ (Negative) H 01/05/23 16:04 Calcium Oxalate Crystal Present (None Prsent) A 01/05/23 16:04 Urine Yeast Not Reportable 01/05/23 16:04 Urine Osmolality 274 mOsm/kg (500-800) L 01/05/23 16:07 Ur Random Sodium 60 mmol/L 01/05/23 16:07 Stool Occult Bld Scrn Positive (Negative) A 01/05/23 19:36 Stl C. cayetanensis PCR Not Detected (NotDetected) 01/05/23 19:36 Stool Rotavirus A PCR Not Detected (NotDetected) 01/05/23 19:36 Stl Adenov F 40/41 PCR Not Detected (NotDetected) 01/05/23 19:36 Stool Astrovirus (PCR) Not Detected (NotDetected) 01/05/23 19:36 Stool Campylobacter PCR Not Detected (NotDetected) 01/05/23 19:36 Stl C. diff Tox B Gene Negative Cdiff Gene (Neg) 01/05/23 19:36 Stool Cryptosporidium PCR Not Detected (NotDetected) 01/05/23 19:36 Stl E.coli Shiga Tox PCR Not Detected (NotDetected) 01/05/23 19:36 Stl Enterotoxigenic E PCR Not Detected (NotDetected) 01/05/23 19:36 Stool EPEC (PCR) Not Detected (NotDetected) 01/05/23 19:36 Stool EAEC (PCR) Not Detected (NotDetected) 01/05/23 19:36 Stl E. histolytica PCR Not Detected (NotDetected) 01/05/23 19:36 Stool Giardia Lamblia PCR Not Detected (NotDetected) 01/05/23 19:36 Stool Salmonella PCR Not Detected (NotDetected) 01/05/23 19:36 Stool Sapovirus (PCR) Not Detected (NotDetected) 01/05/23 19:36 Stl P. shigelloides PCR Not Detected (NotDetected) 01/05/23 19:36 Stl Shigella/EIEC PCR Not Detected (NotDetected) 01/05/23 19:36 St Y.enterocolitica PCR Not Detected (NotDetected) 01/05/23 19:36 Stool Vibrio (PCR) Not Detected (NotDetected) 01/05/23 19:36 Stl Vibrio cholerae PCR Not Detected (NotDetected) 01/05/23 19:36 Stl Norovirus GI/GII PCR Not Detected (NotDetected) 01/05/23 19:36 Impressions Venous Doppler Study 01/05/23 17:13 ULTRASOUND RIGHT LOWER EXTREMITY VENOUS CLINICAL HISTORY: Right lower extremity edema. Reported history of DVT. COMPARISON STUDY: No priors. TECHNIQUE: Real-time, grayscale, and color Doppler sonography of the deep veins of the right lower extremity was performed from the inguinal crease to the calf. Compression and augmentation were utilized. FINDINGS: There is no sonographic evidence of deep venous thrombosis identified in the right lower extremity. The common femoral, superficial femoral, and popliteal veins are patent and normally compressible. The greater saphenous vein and the profunda femoris vein at the junction with the common femoral vein are clear. The visualized calf veins are patent. IMPRESSION: There is no sonographic evidence of deep venous thrombosis identified in the right lower extremity. ACT 112: Negative or not required by law. Electronically signed by: Manoj Burns M.D. 01/05/2023 11:04 PM
[2023-01-06] MEDS: MAGNESIUM SULFATE / D5W 1 GM/100 ML BAG IV SCH ×2 (11:17→12:56)
[2023-01-06] MEDS: CHOLECALCIFEROL 5,000 UNITS 125 MCG TAB PO SCH (12:09)
[2023-01-06] MEDS ORDERED: POTASSIUM CHLORIDE 20 MEQ in SODIUM CHLORIDE 0.9% 500 ML IV STA (12:09)
[2023-01-06] MEDS: POTASSIUM CHLORIDE CRTAB 20 MEQ TABCR PO SCH ×2 (13:01→20:30)
--- NOTE | 2023-01-06 13:25 | Gastrointestinal Consultation ---
Date of Consultation January 06, 2023 Assessment & Plan (1) Diarrhea: (2) Fecal occult blood test positive: Plan diarrhea could be 2/2 electrolyte imbalance vs. viral gastroenteritis, appears to be improving at this time. FOBT positive nonspecific at this time. Recs: immodium prn diarrhea consider outpatient endoscopic workup for FOBT positive Thank you for allowing me to participate in the care of this patient History of Present Illness Attending Physician: Kirt Craig MD History of Present Illness 77-year-old female here with abnormal outpatient labs including hyponatremia and hypomagnesemia. She has known SIADH and has been having diarrhea the last 1-2 weeks it appears. today she notes no diarrhea, seems to be improving. FOBT was noted to be positive, stool GI pathogen panel was negative otherwise. Denies abx use, sick contacts, eating anything abnormal recently. labs reviewed. 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 propoxyphene AdvReac Intermediate GI UPSET, Verified 10/20/22 23:42 "DISORIENTED" amoxicillin AdvReac Mild VOMITING, Verified 10/20/22 23:42 GI UPSET baclofen AdvReac Mild disoriented Verified 10/20/22 23:42 nausea capsaicin [Diclopak] AdvReac Mild disoriented Verified 10/20/22 23:42 nausea clavulanic acid AdvReac Mild VOMITING, Verified 10/20/22 23:42 GI UPSET diclofenac [Diclopak] AdvReac Mild disoriented Verified 10/20/22 23:42 nausea Diclopak AdvReac Mild disoriented Verified 06/22/16 00:52 nausea codeine AdvReac Unknown pruritis Verified 10/20/22 23:44 Home Medications Medication Instructions Recorded Confirmed Type amlodipine 2.5 mg tablet 2.5 mg PO PM 10/20/22 01/05/23 History aspirin 81 mg tablet,delayed 81 mg PO PM 10/20/22 01/05/23 History release atorvastatin 80 mg tablet 80 mg PO PM 10/20/22 01/05/23 History ezetimibe 10 mg tablet 10 mg PO QAM 10/20/22 01/05/23 History icosapent ethyl 1 gram capsule 2 g PO BIDM 10/20/22 01/05/23 History levothyroxine 112 mcg tablet 112 mcg PO DAILYBB 10/20/22 01/05/23 History magnesium oxide 400 mg PO BID 10/20/22 01/05/23 History metformin 500 mg tablet 500 mg PO QAM 10/20/22 01/05/23 History metoprolol succinate 25 mg 25 mg PO QAM 10/20/22 01/05/23 History tablet,extended release 24 hr omeprazole 40 mg capsule,delayed 40 mg PO DAILYBB 10/20/22 01/05/23 History release topiramate 100 mg tablet See Rx Instructions .Route .COMPLEX 10/20/22 01/05/23 History pyridoxine (vitamin B6) 250 mg 250 mg PO .NOON 10/21/22 01/05/23 History tablet (Vitamin B-6) apixaban 5 mg tablet (Eliquis) 5 mg PO BID 12/14/22 01/05/23 History cholecalciferol (vitamin D3) 125 125 mcg PO .NOON 12/14/22 01/05/23 History mcg (5,000 unit) tablet (Vitamin D3) docusate sodium 100 mg capsule 100 mg PO DAILY 12/14/22 01/05/23 History (Colace) furosemide 20 mg tablet 20 mg PO .QAM AND NOON 12/14/22 01/05/23 History lisinopril 20 mg tablet 20 mg PO QAM 12/14/22 01/05/23 History oxcarbazepine 150 mg tablet See Rx Instructions .Route .COMPLEX 12/14/22 01/05/23 History (Trileptal) oxcarbazepine 300 mg tablet See Rx Instructions .Route .COMPLEX 12/14/22 01/05/23 History (Trileptal) Patient History Medical History Acute non-ST segment elevation myocardial infarction (11/22/10) Benign hypertension (11/22/10) Carotid artery stenosis (11/22/10) Cerebrovascular disease "old lacunar strokes on imaging" Chronic pain Coronary artery disease (11/22/10) Diarrhea DMII (diabetes mellitus, type 2) Gastroesophageal reflux disease (11/22/10) History of adenomatous polyp of colon Hyperlipidemia (11/22/10) Hypomagnesemia Hyponatremia Hypothyroidism (11/22/10) Migraine Osteoarthritis SIADH (syndrome of inappropriate ADH production) Spinal stenosis in cervical region Surgical History Status post coronary artery stent placement Status post hysterectomy Social History Smoking Status: Former smoker Second Hand Exposure: No; Do You Dip or Chew Tobacco: No; Tobacco Cessation Education Requested by Patient: No Hx Alcohol Use: No Hx Substance Use: No Preferred Language: Ukrainian Communication Ability: Effective Admitting Manager Required: No Beliefs That Will Affect Care: None Current Living Situation: Alone Current Living Situation Comment: home alone in apt building Feels Safe at Home: Yes Safety Concerns: Feels Safe At This Time Assistive Devices: Cane and Walker Review of Systems Constitutional: no fever, no chills and no weight loss Eyes: as per Subjective / HPI Ear, Nose, Mouth, Throat: as per Subjective / HPI Respiratory: no dyspnea and no dyspnea on exertion Cardiovascular: no chest pain and no palpitations Gastrointestinal: as per Subjective / HPI Musculoskeletal: no joint pain and no swelling Integumentary: no rash and no lesions Neurologic: no numbness and no paresthesia Psychiatric: no depression and no anxiety Endocrine: no fatigue Hematologic / Lymphatic: no easy bleeding and no easy bruising Physical Exam Constitutional: WD/WN, vitals as above Eyes: EOM intact bilaterally Neck: normal visual inspection Respiratory: normal respiratory effort, lungs clear to auscultation Cardiovascular: RRR, no murmur, no edema Gastrointestinal (Abdomen): Inspection/Auscultation: abdomen normal to inspection; abdomen not distended Percussion/Palpation: abdomen soft; abdomen nontender and no hepatosplenomegaly Musculoskeletal: Head/Neck/Chest: normocephalic and head atraumatic Extre mities: no cyanosis Skin: no rashes, warm and dry Neurologic: moves all extremities Psychiatric: Orientation: alert and cooperative Affect: euthymic affect Results & Data Vital Signs (Past 12 Hours) Vital Signs Temp Pulse Pulse Resp BP Pulse Ox O2 Del Method 01/06/23 10:45 36.9 C 74 19 117/64 97 Room Air 01/06/23 07:00 68 01/06/23 07:27 36.5 C 72 21 133/66 96 Room Air 01/06/23 04:01 36.5 C 78 16 128/62 98 Room Air PG Care Time/CCT Total # of Minutes Spent Total Time Spent with Patient: Total time spent is greater than 50% in coordination of care (as documented) at patient's floor/unit and/or counseling patient: Coding Level of Care Code 45239 INT INP/OBS CARE 2/55MIN Diagnoses Diarrhea R19.7 Fecal occult blood test positive R19.5
[2023-01-06] MEDS: MAGNESIUM CHLORIDE W/CALCIUM 64MG DELAYED REL TAB PO SCH ×2 (13:41→20:25)
[2023-01-06 18:56] LABS: BUN Creatinine Ratio 11.9 (10-20); Calcium 8.8 mg/dl (8.6-10.3); Creatinine Clr Calc Pharmacy 33.3 ml/min; Est GFR (African American) 51.2 ml/min; Est GFR (Non-African American) 44.1 ml/min; Potassium 5.1 mmol/L (3.5-5.1)
[2023-01-06] MEDS: ATORVASTATIN 40 MG TAB PO SCH (20:24)
[2023-01-06] MEDS: amLODIPine BESYLATE 5 MG TAB PO SCH (20:26)
[2023-01-06] MEDS: PANTOprazole 40 MG TAB PO SCH (20:28)
[2023-01-06] MEDS: ASPIRIN 81 MG ECTAB PO SCH (20:29)
[2023-01-06] MEDS ORDERED: MAGNESIUM OXIDE 400 MG TAB PO SCH (21:00)
[2023-01-07] MEDS: TOPIRAMATE 100 MG TAB PO SCH ×3 (06:01→20:58)
[2023-01-07] MEDS: LEVOTHYROXINE SODIUM 112 MCG TABLET PO SCH (06:02)
[2023-01-07 06:52] LABS: Basophils # (auto) 0.03 K/uL (0.00-0.20); Basophils % (auto) 0.8 %; Hematocrit (blood only) 24.4 % (37.0-47.0); Hemoglobin 8.3 g/dl (12.0-16.0); Immature Granulocytes # (auto) 0.01 K/uL (0.01-0.20); Immature Granulocytes % (auto) 0.3 %; Lymphocytes # (auto) 1.86 K/uL (1.20-3.40); Lymphocytes % (auto) 46.6 %; Mean Corpuscular Hemoglobin 30.6 pg (25.0-34.0); Mean Platelet Volume 10.5 fL (9.4-12.4); Monocytes # (auto) 0.47 K/uL (0.11-0.59); Monocytes % (auto) 11.8 %; Neutrophils # (auto) 1.62 K/uL (1.40-6.50); Neutrophils % (auto) 40.5 %; Platelet Count 221 K/uL (130-400); RDW Coefficient of Variation 13.2 % (11.5-14.5); RDW Standard Deviation 43.2 fL (36.4-46.3); Red Blood Count 2.71 M/uL (4.20-5.40); White Blood Count 3.99 K/ul (4.8-10.8)
[2023-01-07 07:25] LABS: BUN Creatinine Ratio 11.9 (10-20); Calcium 8.7 mg/dl (8.6-10.3); Creatinine Clr Calc Pharmacy 39.3 ml/min; Est GFR (African American) 61.7 ml/min; Est GFR (Non-African American) 53.3 ml/min; Potassium 4.9 mmol/L (3.5-5.1)
[2023-01-07] MEDS: EZETIMIBE 10 MG TAB PO SCH (08:08)
[2023-01-07] MEDS: POTASSIUM CHLORIDE CRTAB 20 MEQ TABCR PO SCH ×2 (08:08→20:55)
[2023-01-07] MEDS: APIXABAN 5 MG TABLET PO SCH ×2 (08:09→20:56)
[2023-01-07] MEDS: PANTOprazole 40 MG TAB PO SCH ×2 (08:09→20:56)
[2023-01-07] MEDS: OXcarbazepine 150 MG TABLET PO SCH ×2 (08:09→20:57)
[2023-01-07] MEDS: SACCHAROMYCES BOULARDII 250 MG CAP PO SCH (08:10)
[2023-01-07] MEDS: MAGNESIUM CHLORIDE W/CALCIUM 64MG DELAYED REL TAB PO SCH ×2 (08:10→20:57)
[2023-01-07] MEDS: METOPROLOL SUCC 25MG EXT REL TAB PO SCH (08:11)
[2023-01-07] MEDS: lisinopril 20 MG TAB PO SCH (08:11)
--- NOTE | 2023-01-07 10:40 | Nephrology Progress Note ---
Date of Service January 07, 2023 Assessment & Plan (1) Hyponatremia: Plan: presenting sodium 121 at 1430 on 01/05. up to 124 01/06 after essentially 600 mL net NS (had 1L NS, got 400 mL D5W w/ riders). pt w/ chronic hyponatremia usually from low solute diet presenting w/ diarrhea / volume depletion/low solute diet by hx. would expect uOsms w/ either vol depletion or SIADH to be significantly higher than she had on presentation however. -goal sNa tomorrow AM is 130 or less ->>changed FR 1.2 > 1.5 L, toward which protein shakes don't count ->>started lasix 20 mg IV bid17, first dose now ->>started urea 15 gm bid for 2 doses today -cont K po at 20 mEQ bid -maintain eukalemia (2) Hypomagnesemia: Plan: mag 1.0 on admission 01/05; improved to 1.8 > 1.5 yesterday. >ordered mag level for tomorrow am -cont to hold stool softeners -changed mag ox to slo mag bid for better absorption/lower diarrhea risk (po mag may worsen diarrhea) -continue to check daily and replete IV prn Admission and Anticipated Discharge Date Admission Date: January 05, 2023 Subjective pt states diarrhea started again at midday eval w/ her today > RN reports 2 soft BM green. no sob, no n/v; ongoing mild LE edema. taking po now; no c/o loose bm yesterday Review of Systems Review of Systems: All systems reviewed & are unremarkable except as noted in Subjective Physical Exam Constitutional: well developed and well nourished Eyes: EOM intact bilaterally ENMT: Ears: no external ear abnormality Nose: no external nose abnormality Mouth: + dry oral mucous membranes Neck: no nuchal rigidity Respiratory: normal respiratory effort Auscultation: + diminished lung sounds Cardiovascular: Rate/Rhythm: regular rate and regular rhythm Heart Sounds: + murmur Extremities: + edema (RLE) Gastrointestinal (Abdomen): Inspection/Auscultation: normal bowel sounds Percussion/Palpation: abdomen soft; abdomen nontender Musculoskeletal: Extremities: strength 5/5 throughout Skin: no rashes, warm and dry scabbed wound LLE anterior Results & Data Vital Signs (Past 12 Hours) Vital Signs Temp Pulse Pulse Resp BP BP Pulse Ox 01/07/23 07:23 36.4 C L 65 18 125/64 97 01/07/23 07:36 69 01/07/23 07:36 01/07/23 03:00 36.4 C L 69 20 125/66 97 01/06/23 23:00 36.5 C 74 20 94/56 L 97 O2 Del Method 01/07/23 07:23 Room Air 01/07/23 07:36 01/07/23 07:36 Room Air 01/07/23 03:00 Room Air 01/06/23 23:00 Room Air Laboratory Results 01/07/23 06:24 01/07/23 06:24
[2023-01-07] MEDS: FUROSEMIDE INJ 20 MG/2 ML VIAL IV SCH ×2 (11:09→16:16)
[2023-01-07] MEDS: UREA (UREA-NA) 15 GM PACK PO SCH ×2 (11:09→20:55)
--- NOTE | 2023-01-07 12:02 | Hospitalist Progress Note ---
Date of Service January 07, 2023 Assessment & Plan (1) SIADH (syndrome of inappropriate ADH production): (2) Hyponatremia: (3) Hypomagnesemia: (4) Coronary artery disease: (5) DMII (diabetes mellitus, type 2): (6) Gastroesophageal reflux disease: (7) Osteoarthritis: (8) Hyperlipidemia: (9) Hypothyroidism: (10) Chronic pain: (11) Diarrhea: Plan 77-year-old female presents as recommended by her outpatient PCP for electrolyte imbalance on outpatient labs; hyponatremia with serum sodium 121, hypomagnesemia mag 1.0. Patient with diarrhea over the last 1 week and known history of SIADH with an inpatient hospitalization 10/21 to 10/11/2025 with hyponatremia. . On Eliquis for history of DVT. Hyponatremia: History of SIADH: Serum sodium of 121 on admission; improved to 125 today. Urine electrolytes suggestive of SIADH. On fluid restriction of 1500 cc. Also started on oral urea and IV Lasix. Daily BMP. Hypomagnesemia: Acute uncontrolled Magnesium of 1.0 on admission; Improved to 1.8. Will order 2 g of IV magnesium; also on slow magnesium. Diarrhea: Likely because of electrolyte imbalance C. difficile and GI PCR negative. Fecal occult blood positive. Hemoglobin is stable around 8-9. Started on Protonix twice daily. Patient is on Eliquis and aspirin. Fairly recent DVT on November 2022; GI consulted for persistence severe diarrhea and fecal occult positive. Recommended Imodium. FOBT nonspecific at this time. Recommended to consider outpatient endoscopic work-up. Chronic Anemia: Hemoglobin down trended; around 8 today. CAD: chronic stable status post stent placement History of DVT: Chronic stable [facility] DVT LLE while at rehab in November 2022 Takes Eliquis; continue Diabetes mellitus type 2: Chronic stable Takes metformin; hold while inpatient Place on on SSI FSBS 09/2022 A1c 5.9 Hypothyroidism: Chronic stable Last TSH 01/04 1.76 Continue home levothyroxine Osteoarthritis: Chronic pain: Chronic stable Takes Trileptal; continue HLD: Chronic stable Takes Zetia and atorvastatin; continue Disposition: PCP: Dr. Felton CODE STATUS: Full code VTE prophylaxis: On Eliquis Time spent evaluating patient, direct bedside care, chart review, placing orders, interpretation of diagnostic studies, discussion with consultants, patient, and family members, as well as other required patient management activities is 60 minutes. Please note the above document was generated using voice recognition software. It may contain grammatical, syntax or spelling errors. Any formal questions or concerns about the content, text or information contained within the body of this dictation should be directly addressed to the provider for clarification Admission and Anticipated Discharge Date Admission Date: January 05, 2023 Subjective Patient reports improvement in the diarrheal symptoms. Reports 1 bowel movement today. Review of Systems Review of Systems: All systems reviewed & are unremarkable except as noted in Subjective Physical Exam Physical Exam: Constitutional: Alert orient x3; not in distress. Respiratory: Bilateral vesicular breath sound. Cardiovascular: RRR, no murmur, no edema Vessels: no JVD or carotid bruit Chest: normal inspection of chest Abdomen: normal bowel sounds, soft, nontender, no hepatosplenomegaly Musculoskeletal: no cyanosis or clubbing, extremities motor strength 5/5 Skin: no rashes, warm and dry normal turgor Neurologic: PERRL, EOMI, accommodation nl, no face palsy, no dysarthria CN's II- XI intact bilaterally and moves all extremities Psychiatric: A+Ox3, euthymic affect Results & Data Results & Data Vital Signs (Past 12 Hours) Vital Signs Temp Pulse Pulse Resp BP BP Pulse Ox 01/07/23 07:23 36.4 C L 65 18 125/64 97 01/07/23 07:36 69 01/07/23 07:36 01/07/23 03:00 36.4 C L 69 20 125/66 97 O2 Del Method 01/07/23 07:23 Room Air 01/07/23 07:36 01/07/23 07:36 Room Air 01/07/23 03:00 Room Air Laboratory Results Laboratory Results WBC 3.99 K/ul (4.8-10.8) L 01/07/23 06:24 RBC 2.71 M/uL (4.20-5.40) L 01/07/23 06:24 Hgb 8.3 g/dl (12.0-16.0) L 01/07/23 06:24 Hct 24.4 % (37.0-47.0) L 01/07/23 06:24 MCV 90.0 fL (80.0-100.0) 01/07/23 06:24 MCH 30.6 pg (25.0-34.0) 01/07/23 06:24 MCHC 34.0 g/dL (32.0-36.0) 01/07/23 06:24 RDW Std Deviation 43.2 fL (36.4-46.3) 01/07/23 06:24 RDW Coeff of Mine 13.2 % (11.5-14.5) 01/07/23 06:24 Plt Count 221 K/uL (130-400) 01/07/23 06:24 MPV 10.5 fL (9.4-12.4) 01/07/23 06:24 Immature Gran % (Auto) 0.3 % 01/07/23 06:24 Neut % (Auto) 40.5 % 01/07/23 06:24 Lymph % (Auto) 46.6 % 01/07/23 06:24 [place] % (Auto) 11.8 % 01/07/23 06:24 Eos % (Auto) 0.0 % 01/07/23 06:24 Baso % (Auto) 0.8 % 01/07/23 06:24 Neut # (Auto) 1.62 K/uL (1.40-6.50) 01/07/23 06:24 Lymph # (Auto) 1.86 K/uL (1.20-3.40) 01/07/23 06:24 [place] # (Auto) 0.47 K/uL (0.11-0.59) 01/07/23 06:24 Eos # (Auto) 0.00 K/uL (0.00-0.50) 01/07/23 06:24 Baso # (Auto) 0.03 K/uL (0.00-0.20) 01/07/23 06:24 Immature Gran # (Auto) 0.01 K/uL (0.01-0.20) 01/07/23 06:24 Sodium 125 mmol/L (136-145) L 01/07/23 06:24 Potassium 4.9 mmol/L (3.5-5.1) 01/07/23 06:24 Chloride 100 mmol/L (98-107) 01/07/23 06:24 Carbon Dioxide 22 mmol/L (21-32) 01/07/23 06:24 Anion Gap 3 (3-11) 01/07/23 06:24 BUN 12 mg/dl (6-23) 01/07/23 06:24 Creatinine 1.01 mg/dl (0.6-1.2) 01/07/23 06:24 Est Cr Clr Drug Dosing 39.3 ml/min 01/07/23 06:24 Est GFR ( Amer) 61.7 ml/min 01/07/23 06:24 Est GFR (Non-Af Amer) 53.3 ml/min 01/07/23 06:24 BUN/Creatinine Ratio 11.9 (10-20) 01/07/23 06:24 Glucose 75 mg/dl (70-99(Fasting)) 01/07/23 06:24 POC Glucose 93 mg/dl (70-99) 01/06/23 11:31 Estimat Average Glucose 103 mg/dl 01/06/23 06:28 Hemoglobin A1c 5.2 % (4.5-5.6) 01/06/23 06:28 Osmolality 264 mOsm/kg (280-300) L 01/06/23 18:01 Calcium 8.7 mg/dl (8.6-10.3) 01/07/23 06:24 Phosphorus 2.8 mg/dl (2.5-4.9) 01/06/23 06:28 Magnesium 1.5 mg/dl (1.7-2.4) L 01/06/23 06:28 Total Bilirubin 0.4 mg/dl (0.2-1.0) 01/06/23 06:35 AST 37 U/L (13-39) 01/06/23 06:35 ALT 28 U/L (7-52) 01/06/23 06:35 Alkaline Phosphatase 67 U/L (34-104) 01/06/23 06:35 Total Creatine Kinase 158 U/L (26-192) 01/05/23 14:35 Total Protein 5.2 gm/dl (6.0-8.3) L 01/06/23 06:35 Albumin 3.4 gm/dl (3.4-5.0) 01/06/23 06:35 Globulin 1.8 gm/dl (2.5-4.0) L 01/06/23 06:35 Albumin/Globulin Ratio 1.9 (0.9-2) 01/06/23 06:35 Lipase 46 U/L (11-82) 01/05/23 14:35 Urine Color Yellow 01/05/23 16:04 Urine Appearance Clear (Clear) 01/05/23 16:04 Urine pH 6.5 (4.5-7.5) 01/05/23 16:04 Ur Specific [place] 1.009 (1.000-1.030) 01/05/23 16:04 Urine Protein Negative (Negative) 01/05/23 16:04 Urine Glucose (UA) Negative (Negative) 01/05/23 16:04 Urine Ketones Negative (Negative) 01/05/23 16:04 Urine Blood Trace (Negative) H 01/05/23 16:04 Urine Nitrite Negative (Negative) 01/05/23 16:04 Urine Bilirubin Negative (Negative) 01/05/23 16:04 Urine Urobilinogen Negative (Negative) 01/05/23 16:04 Ur Leukocyte Esterase Trace (Negative) H 01/05/23 16:04 Urine WBC (Auto) 1-5 /hpf (0-5) 01/05/23 16:04 Urine RBC (Auto) 0-4 /hpf (0-4) 01/05/23 16:04 U Hyaline Cast (Auto) 0 /lpf (0-5) 01/05/23 16:04 U Epithel Cells (Auto) >30 /lpf (0-5) H 01/05/23 16:04 Urine Bacteria (Auto) 1+ (Negative) H 01/05/23 16:04 Calcium Oxalate Crystal Present (None Prsent) A 01/05/23 16:04 Urine Yeast Not Reportable 01/05/23 16:04 Urine Osmolality 274 mOsm/kg (500-800) L 01/05/23 16:07 Ur Random Sodium 60 mmol/L 01/05/23 16:07 Stool Occult Bld Scrn Positive (Negative) A 01/05/23 19:36 Stl C. cayetanensis PCR Not Detected (NotDetected) 01/05/23 19:36 Stool Rotavirus A PCR Not Detected (NotDetected) 01/05/23 19:36 Stl Adenov F 40/41 PCR Not Detected (NotDetected) 01/05/23 19:36 Stool Astrovirus (PCR) Not Detected (NotDetected) 01/05/23 19:36 Stool Campylobacter PCR Not Detected (NotDetected) 01/05/23 19:36 Stl C. diff Tox B Gene Negative Cdiff Gene (Neg) 01/05/23 19:36 Stool Cryptosporidium PCR Not Detected (NotDetected) 01/05/23 19:36 Stl E.coli Shiga Tox PCR Not Detected (NotDetected) 01/05/23 19:36 Stl Enterotoxigenic E PCR Not Detected (NotDetected) 01/05/23 19:36 Stool EPEC (PCR) Not Detected (NotDetected) 01/05/23 19:36 Stool EAEC (PCR) Not Detected (NotDetected) 01/05/23 19:36 Stl E. histolytica PCR Not Detected (NotDetected) 01/05/23 19:36 Stool Giardia Lamblia PCR Not Detected (NotDetected) 01/05/23 19:36 Stool Salmonella PCR Not Detected (NotDetected) 01/05/23 19:36 Stool Sapovirus (PCR) Not Detected (NotDetected) 01/05/23 19:36 Stl P. shigelloides PCR Not Detected (NotDetected) 01/05/23 19:36 Stl Shigella/EIEC PCR Not Detected (NotDetected) 01/05/23 19:36 St Y.enterocolitica PCR Not Detected (NotDetected) 01/05/23 19:36 Stool Vibrio (PCR) Not Detected (NotDetected) 01/05/23 19:36 Stl Vibrio cholerae PCR Not Detected (NotDetected) 01/05/23 19:36 Stl Norovirus GI/GII PCR Not Detected (NotDetected) 01/05/23 19:36 Impressions Venous Doppler Study 01/05/23 17:13 ULTRASOUND RIGHT LOWER EXTREMITY VENOUS CLINICAL HISTORY: Right lower extremity edema. Reported history of DVT. COMPARISON STUDY: No priors. TECHNIQUE: Real-time, grayscale, and color Doppler sonography of the deep veins of the right lower extremity was performed from the inguinal crease to the calf. Compression and augmentation were utilized. FINDINGS: There is no sonographic evidence of deep venous thrombosis identified in the right lower extremity. The common femoral, superficial femoral, and popliteal veins are patent and normally compressible. The greater saphenous vein and the profunda femoris vein at the junction with the common femoral vein are clear. The visualized calf veins are patent. IMPRESSION: There is no sonographic evidence of deep venous thrombosis identified in the right lower extremity. ACT 112: Negative or not required by law. Electronically signed by: Manoj Burns M.D. 01/05/2023 11:04 PM
[2023-01-07] MEDS: CHOLECALCIFEROL 5,000 UNITS 125 MCG TAB PO SCH (12:08)
[2023-01-07] MEDS: amLODIPine BESYLATE 5 MG TAB PO SCH (20:56)
[2023-01-07] MEDS: ATORVASTATIN 40 MG TAB PO SCH (20:57)
[2023-01-08] MEDS: INSULIN ASPART PER UNIT CHARGE SC SCH (04:41)
[2023-01-08] MEDS: TOPIRAMATE 100 MG TAB PO SCH ×3 (06:04→21:15)
[2023-01-08] MEDS: LEVOTHYROXINE SODIUM 112 MCG TABLET PO SCH (06:04)
[2023-01-08 07:57] LABS: Basophils # (auto) 0.03 K/uL (0.00-0.20); Basophils % (auto) 0.8 %; Hematocrit (blood only) 24.8 % (37.0-47.0); Hemoglobin 8.5 g/dl (12.0-16.0); Immature Granulocytes # (auto) 0.02 K/uL (0.01-0.20); Immature Granulocytes % (auto) 0.5 %; Mean Corpuscular Hemoglobin 31.3 pg (25.0-34.0); Mean Corpuscular Hgb Conc 34.3 g/dL (32.0-36.0); Mean Corpuscular Volume 91.2 fL (80.0-100.0); Mean Platelet Volume 10.8 fL (9.4-12.4); Monocytes # (auto) 0.43 K/uL (0.11-0.59); Monocytes % (auto) 10.9 %; Neutrophils # (auto) 1.77 K/uL (1.40-6.50); Neutrophils % (auto) 44.8 %; Platelet Count 214 K/uL (130-400); RDW Coefficient of Variation 13.3 % (11.5-14.5); RDW Standard Deviation 44.1 fL (36.4-46.3); Red Blood Count 2.72 M/uL (4.20-5.40); White Blood Count 3.95 K/ul (4.8-10.8)
[2023-01-08] MEDS: APIXABAN 5 MG TABLET PO SCH ×2 (08:14→21:15)
[2023-01-08] MEDS: FUROSEMIDE INJ 20 MG/2 ML VIAL IV SCH ×2 (08:14→16:35)
[2023-01-08] MEDS: lisinopril 20 MG TAB PO SCH (08:14)
[2023-01-08] MEDS: EZETIMIBE 10 MG TAB PO SCH (08:14)
[2023-01-08] MEDS: MAGNESIUM CHLORIDE W/CALCIUM 64MG DELAYED REL TAB PO SCH ×2 (08:15→21:15)
[2023-01-08] MEDS: OXcarbazepine 150 MG TABLET PO SCH ×2 (08:15→21:16)
[2023-01-08] MEDS: METOPROLOL SUCC 25MG EXT REL TAB PO SCH (08:15)
[2023-01-08] MEDS: PANTOprazole 40 MG TAB PO SCH ×2 (08:16→21:16)
[2023-01-08] MEDS: POTASSIUM CHLORIDE CRTAB 20 MEQ TABCR PO SCH ×2 (08:16→21:14)
[2023-01-08] MEDS: UREA (UREA-NA) 15 GM PACK PO SCH ×2 (08:17→21:18)
[2023-01-08] MEDS: SACCHAROMYCES BOULARDII 250 MG CAP PO SCH (08:17)
[2023-01-08 08:20] LABS: BUN Creatinine Ratio 34.2 (10-20); Calcium 8.8 mg/dl (8.6-10.3); Creatinine Clr Calc Pharmacy 36.1 ml/min; Est GFR (African American) 55.1 ml/min; Est GFR (Non-African American) 47.5 ml/min; Magnesium 1.4 mg/dl (1.7-2.4); Potassium 4.7 mmol/L (3.5-5.1)
[2023-01-08] MEDS ORDERED: LOPERAMIDE HCL 2 MG CAP PO PRN (09:45)
[2023-01-08] MEDS: MAGNESIUM SULFATE / D5W 1 GM/100 ML BAG IV SCH ×2 (10:06→11:50)
[2023-01-08] MEDS: CHOLECALCIFEROL 5,000 UNITS 125 MCG TAB PO SCH (11:50)
--- NOTE | 2023-01-08 12:57 | Hospitalist Progress Note ---
Date of Service January 08, 2023 Assessment & Plan (1) SIADH (syndrome of inappropriate ADH production): (2) Hyponatremia: (3) Hypomagnesemia: (4) Coronary artery disease: (5) DMII (diabetes mellitus, type 2): (6) Gastroesophageal reflux disease: (7) Osteoarthritis: (8) Hyperlipidemia: (9) Hypothyroidism: (10) Chronic pain: (11) Diarrhea: Plan 77-year-old female presents as recommended by her outpatient PCP for electrolyte imbalance on outpatient labs; hyponatremia with serum sodium 121, hypomagnesemia mag 1.0. Patient with diarrhea over the last 1 week and known history of SIADH with an inpatient hospitalization 10/21 to 10/11/2025 with hyponatremia. . On Eliquis for history of DVT. Hyponatremia: History of SIADH: Serum sodium of 121 on admission; improved to 127 today. Urine electrolytes suggestive of SIADH. On fluid restriction of 1500 cc. Also started on oral urea and IV Lasix. Daily BMP. Hypomagnesemia: Acute uncontrolled Magnesium of 1.0 on admission; Improved to 1.8. Will order 2 g of IV magnesium; also on slow magnesium. Diarrhea: Likely because of electrolyte imbalance C. difficile and GI PCR negative. Fecal occult blood positive. Hemoglobin is stable around 8-9. Started on Protonix twice daily. Patient is on Eliquis and aspirin. Fairly recent DVT on November 2022; GI consulted for persistence severe diarrhea and fecal occult positive. Recommended Imodium. FOBT nonspecific at this time. Recommended to consider outpatient endoscopic work-up. Chronic Anemia: Hemoglobin stabilized around 8 after initial downtrend. Continue to monitor. CAD: chronic stable status post stent placement History of DVT: Chronic stable [facility] LLE while at rehab in November 2022 Takes Eliquis; continue Diabetes mellitus type 2: Chronic stable Takes metformin; hold while inpatient Place on on SSI FSBS 09/2022 A1c 5.9 Hypothyroidism: Chronic stable Last TSH 01/04 1.76 Continue home levothyroxine Osteoarthritis: Chronic pain: Chronic stable Takes Trileptal; continue HLD: Chronic stable Takes Zetia and atorvastatin; continue Disposition: PCP: Dr. Felton CODE STATUS: Full code VTE prophylaxis: On Eliquis Time spent evaluating patient, direct bedside care, chart review, placing orders, interpretation of diagnostic studies, discussion with consultants, patient, and family members, as well as other required patient management activities is 60 minutes. Please note the above document was generated using voice recognition software. It may contain grammatical, syntax or spelling errors. Any formal questions or concerns about the content, text or information contained within the body of this dictation should be directly addressed to the provider for clarification Admission and Anticipated Discharge Date Admission Date: January 05, 2023 Subjective Patient seen and examined at bedside. She reports multiple episode of diarrhea again. Denies abdominal pain or discomfort. Afebrile. No overnight events. Review of Systems Review of Systems: All systems reviewed & are unremarkable except as noted in Subjective Physical Exam Physical Exam: Constitutional: Alert orient x3; not in distress. Respiratory: Bilateral vesicular breath sound. Cardiovascular: RRR, no murmur, no edema Vessels: no JVD or carotid bruit Chest: normal inspection of chest Abdomen: normal bowel sounds, soft, nontender, no hepatosplenomegaly Musculoskeletal: no cyanosis or clubbing, extremities motor strength 5/5 Skin: no rashes, warm and dry normal turgor Neurologic: PERRL, EOMI, accommodation nl, no face palsy, no dysarthria CN's II- XI intact bilaterally and moves all extremities Psychiatric: A+Ox3, euthymic affect Results & Data Results & Data Vital Signs (Past 12 Hours) Vital Signs Temp Pulse Resp BP Pulse Ox O2 Del Method 01/08/23 11:44 36.5 C 80 17 113/66 98 Room Air 01/08/23 07:55 36.7 C 64 17 135/66 98 Room Air 01/08/23 02:34 36.5 C 77 18 124/70 98 Room Air Laboratory Results Laboratory Results WBC 3.95 K/ul (4.8-10.8) L 01/08/23 06:39 RBC 2.72 M/uL (4.20-5.40) L 01/08/23 06:39 Hgb 8.5 g/dl (12.0-16.0) L 01/08/23 06:39 Hct 24.8 % (37.0-47.0) L 01/08/23 06:39 MCV 91.2 fL (80.0-100.0) 01/08/23 06:39 MCH 31.3 pg (25.0-34.0) 01/08/23 06:39 MCHC 34.3 g/dL (32.0-36.0) 01/08/23 06:39 RDW Std Deviation 44.1 fL (36.4-46.3) 01/08/23 06:39 RDW Coeff of Mine 13.3 % (11.5-14.5) 01/08/23 06:39 Plt Count 214 K/uL (130-400) 01/08/23 06:39 MPV 10.8 fL (9.4-12.4) 01/08/23 06:39 Immature Gran % (Auto) 0.5 % 01/08/23 06:39 Neut % (Auto) 44.8 % 01/08/23 06:39 Lymph % (Auto) 43.0 % 01/08/23 06:39 [place] % (Auto) 10.9 % 01/08/23 06:39 Eos % (Auto) 0.0 % 01/08/23 06:39 Baso % (Auto) 0.8 % 01/08/23 06:39 Neut # (Auto) 1.77 K/uL (1.40-6.50) 01/08/23 06:39 Lymph # (Auto) 1.70 K/uL (1.20-3.40) 01/08/23 06:39 [place] # (Auto) 0.43 K/uL (0.11-0.59) 01/08/23 06:39 Eos # (Auto) 0.00 K/uL (0.00-0.50) 01/08/23 06:39 Baso # (Auto) 0.03 K/uL (0.00-0.20) 01/08/23 06:39 Immature Gran # (Auto) 0.02 K/uL (0.01-0.20) 01/08/23 06:39 Sodium 127 mmol/L (136-145) L 01/08/23 06:39 Potassium 4.7 mmol/L (3.5-5.1) 01/08/23 06:39 Chloride 101 mmol/L (98-107) 01/08/23 06:39 Carbon Dioxide 22 mmol/L (21-32) 01/08/23 06:39 Anion Gap 4 (3-11) 01/08/23 06:39 BUN 38 mg/dl (6-23) H D 01/08/23 06:39 Creatinine 1.11 mg/dl (0.6-1.2) 01/08/23 06:39 Est Cr Clr Drug Dosing 36.1 ml/min 01/08/23 06:39 Est GFR ( Amer) 55.1 ml/min 01/08/23 06:39 Est GFR (Non-Af Amer) 47.5 ml/min 01/08/23 06:39 BUN/Creatinine Ratio 34.2 (10-20) H 01/08/23 06:39 Glucose 75 mg/dl (70-99(Fasting)) 01/08/23 06:39 POC Glucose 93 mg/dl (70-99) 01/06/23 11:31 Estimat Average Glucose 103 mg/dl 01/06/23 06:28 Hemoglobin A1c 5.2 % (4.5-5.6) 01/06/23 06:28 Osmolality 264 mOsm/kg (280-300) L 01/06/23 18:01 Calcium 8.8 mg/dl (8.6-10.3) 01/08/23 06:39 Phosphorus 2.8 mg/dl (2.5-4.9) 01/06/23 06:28 Magnesium 1.4 mg/dl (1.7-2.4) L 01/08/23 06:39 Total Bilirubin 0.4 mg/dl (0.2-1.0) 01/06/23 06:35 AST 37 U/L (13-39) 01/06/23 06:35 ALT 28 U/L (7-52) 01/06/23 06:35 Alkaline Phosphatase 67 U/L (34-104) 01/06/23 06:35 Total Creatine Kinase 158 U/L (26-192) 01/05/23 14:35 Total Protein 5.2 gm/dl (6.0-8.3) L 01/06/23 06:35 Albumin 3.4 gm/dl (3.4-5.0) 01/06/23 06:35 Globulin 1.8 gm/dl (2.5-4.0) L 01/06/23 06:35 Albumin/Globulin Ratio 1.9 (0.9-2) 01/06/23 06:35 Lipase 46 U/L (11-82) 01/05/23 14:35 Urine Color Yellow 01/05/23 16:04 Urine Appearance Clear (Clear) 01/05/23 16:04 Urine pH 6.5 (4.5-7.5) 01/05/23 16:04 Ur Specific [place] 1.009 (1.000-1.030) 01/05/23 16:04 Urine Protein Negative (Negative) 01/05/23 16:04 Urine Glucose (UA) Negative (Negative) 01/05/23 16:04 Urine Ketones Negative (Negative) 01/05/23 16:04 Urine Blood Trace (Negative) H 01/05/23 16:04 Urine Nitrite Negative (Negative) 01/05/23 16:04 Urine Bilirubin Negative (Negative) 01/05/23 16:04 Urine Urobilinogen Negative (Negative) 01/05/23 16:04 Ur Leukocyte Esterase Trace (Negative) H 01/05/23 16:04 Urine WBC (Auto) 1-5 /hpf (0-5) 01/05/23 16:04 Urine RBC (Auto) 0-4 /hpf (0-4) 01/05/23 16:04 U Hyaline Cast (Auto) 0 /lpf (0-5) 01/05/23 16:04 U Epithel Cells (Auto) >30 /lpf (0-5) H 01/05/23 16:04 Urine Bacteria (Auto) 1+ (Negative) H 01/05/23 16:04 Calcium Oxalate Crystal Present (None Prsent) A 01/05/23 16:04 Urine Yeast Not Reportable 01/05/23 16:04 Urine Osmolality 274 mOsm/kg (500-800) L 01/05/23 16:07 Ur Random Sodium 60 mmol/L 01/05/23 16:07 Stool Occult Bld Scrn Positive (Negative) A 01/05/23 19:36 Stl C. cayetanensis PCR Not Detected (NotDetected) 01/05/23 19:36 Stool Rotavirus A PCR Not Detected (NotDetected) 01/05/23 19:36 Stl Adenov F 40/41 PCR Not Detected (NotDetected) 01/05/23 19:36 Stool Astrovirus (PCR) Not Detected (NotDetected) 01/05/23 19:36 Stool Campylobacter PCR Not Detected (NotDetected) 01/05/23 19:36 Stl C. diff Tox B Gene Negative Cdiff Gene (Neg) 01/05/23 19:36 Stool Cryptosporidium PCR Not Detected (NotDetected) 01/05/23 19:36 Stl E.coli Shiga Tox PCR Not Detected (NotDetected) 01/05/23 19:36 Stl Enterotoxigenic E PCR Not Detected (NotDetected) 01/05/23 19:36 Stool EPEC (PCR) Not Detected (NotDetected) 01/05/23 19:36 Stool EAEC (PCR) Not Detected (NotDetected) 01/05/23 19:36 Stl E. histolytica PCR Not Detected (NotDetected) 01/05/23 19:36 Stool Giardia Lamblia PCR Not Detected (NotDetected) 01/05/23 19:36 Stool Salmonella PCR Not Detected (NotDetected) 01/05/23 19:36 Stool Sapovirus (PCR) Not Detected (NotDetected) 01/05/23 19:36 Stl P. shigelloides PCR Not Detected (NotDetected) 01/05/23 19:36 Stl Shigella/EIEC PCR Not Detected (NotDetected) 01/05/23 19:36 St Y.enterocolitica PCR Not Detected (NotDetected) 01/05/23 19:36 Stool Vibrio (PCR) Not Detected (NotDetected) 01/05/23 19:36 Stl Vibrio cholerae PCR Not Detected (NotDetected) 01/05/23 19:36 Stl Norovirus GI/GII PCR Not Detected (NotDetected) 01/05/23 19:36 Impressions Venous Doppler Study 01/05/23 17:13 ULTRASOUND RIGHT LOWER EXTREMITY VENOUS CLINICAL HISTORY: Right lower extremity edema. Reported history of DVT. COMPARISON STUDY: No priors. TECHNIQUE: Real-time, grayscale, and color Doppler sonography of the deep veins of the right lower extremity was performed from the inguinal crease to the calf. Compression and augmentation were utilized. FINDINGS: There is no sonographic evidence of deep venous thrombosis identified in the right lower extremity. The common femoral, superficial femoral, and popliteal veins are patent and normally compressible. The greater saphenous vein and the profunda femoris vein at the junction with the common femoral vein are clear. The visualized calf veins are patent. IMPRESSION: There is no sonographic evidence of deep venous thrombosis identified in the right lower extremity. ACT 112: Negative or not required by law. Electronically signed by: Manoj Burns M.D. 01/05/2023 11:04 PM
--- NOTE | 2023-01-08 17:13 | Electrocardiogram Report ---
Test Reason : Blood Pressure : / mmHG Vent. Rate : 077 BPM Atrial Rate : 078 BPM P-R Int : 146 ms QRS Dur : 090 ms QT Int : 362 ms P-R-T Axes : 049 019 063 degrees QTc Int : 409 ms Normal sinus rhythm Normal ECG When compared with ECG of 14-DEC-2022 09:45, No significant change was found Confirmed by Bahman Plaza ([id number]) on 01/08/2023 5:12:48 PM Referred By: Confirmed By:Bahman Plaza
[2023-01-08] MEDS: amLODIPine BESYLATE 5 MG TAB PO SCH (21:17)
[2023-01-08] MEDS: ATORVASTATIN 40 MG TAB PO SCH (21:17)
[2023-01-09] MEDS: LEVOTHYROXINE SODIUM 112 MCG TABLET PO SCH (06:04)
[2023-01-09 06:33] LABS: Basophils # (auto) 0.03 K/uL (0.00-0.20); Basophils % (auto) 0.8 %; Hematocrit (blood only) 26.4 % (37.0-47.0); Hemoglobin 8.7 g/dl (12.0-16.0); Immature Granulocytes # (auto) 0.01 K/uL (0.01-0.20); Immature Granulocytes % (auto) 0.3 %; Lymphocytes # (auto) 1.78 K/uL (1.20-3.40); Lymphocytes % (auto) 44.8 %; Mean Platelet Volume 10.5 fL (9.4-12.4); Monocytes % (auto) 12.6 %; Neutrophils # (auto) 1.65 K/uL (1.40-6.50); Neutrophils % (auto) 41.5 %; Platelet Count 218 K/uL (130-400); RDW Coefficient of Variation 13.2 % (11.5-14.5); RDW Standard Deviation 45.7 fL (36.4-46.3); Red Blood Count 2.81 M/uL (4.20-5.40); White Blood Count 3.97 K/ul (4.8-10.8)
[2023-01-09 06:53] LABS: BUN Creatinine Ratio 44.1 (10-20); Calcium 9.1 mg/dl (8.6-10.3); Creatinine Clr Calc Pharmacy 27.3 ml/min; Est GFR (African American) 39.9 ml/min; Est GFR (Non-African American) 34.4 ml/min
[2023-01-09] MEDS ORDERED: FUROSEMIDE INJ 20 MG/2 ML VIAL IV ONE (07:56)
--- NOTE | 2023-01-09 08:00 | Nephrology Progress Note ---
Date of Service January 09, 2023 Assessment & Plan (1) Hyponatremia: Plan: presenting sodium 121 at 1430 on 01/05. up to 124 01/06 after essentially 600 mL net NS (had 1L NS, got 400 mL D5W w/ riders). pt w/ chronic hyponatremia usually from low solute diet presenting w/ diarrhea / volume depletion/low solute diet by hx. would expect uOsms w/ either vol depletion or SIADH to be significantly higher than she had on presentation however. sNa 130 today, acceptable -goal sNa tomorrow AM is 134 or less -continue FR 1.5 L, toward which protein shakes don't count ->>changed lasix 20 mg IV bid17 to 10 mg IV q3h x 4 doses today d/t hyperkalemia ->>starting NS at 75 ml/hr as well x 500 mL -continue urea 15 gm bid -K supplements on hold -maintain eukalemia Care coordinated w/ Dr Craig (2) Hypomagnesemia: Plan: on mag supplements bid > will recheck this PM; was 1.4 yesterday (3) Hyperkalemia: Plan: K 6 this am on supplements, lasix, lisinpril w/ worsening renal function >K and ACEI held -lasix as above -[place] one time dose -recheck ordered 1800; will f/u -keep on monitor (4) ALBERTINA (acute kidney injury): Plan: abrupt worsening of renal function on lasix, lisinopril -held ACEI -for now continue lasix -will start her on NS same time to lessen lasix impact but continue to move Na Admission and Anticipated Discharge Date Admission Date: January 05, 2023 Subjective k elevated today and renal function too. she really dislikes urea. no sob, no n/v. no further diarrhea today Review of Systems Review of Systems: All systems reviewed & are unremarkable except as noted in Subjective Physical Exam Constitutional: well developed (sitting up in chair), well nourished, + frail appearing and cooperative Eyes: EOM intact bilaterally ENMT: Ears: no external ear abnormality Nose: no external nose abnormality Mouth: + dry oral mucous membranes Neck: no nuchal rigidity Respiratory: normal respiratory effort Auscultation: + diminished lung sounds Cardiovascular: Rate/Rhythm: regular rate and regular rhythm Extremities: + edema (trace) Gastrointestinal (Abdomen): Inspection/Auscultation: normal bowel sounds Percussion/Palpation: abdomen soft; abdomen nontender Musculoskeletal: Extremities: strength 5/5 throughout Skin: no rashes, warm and dry Neurologic: aaron, fluent speech, no tremor Results & Data Vital Signs (Past 12 Hours) Vital Signs Temp Pulse Pulse Resp BP Pulse Ox O2 Del Method 01/09/23 07:39 36.8 C 68 17 129/72 98 Room Air 01/09/23 07:00 71 01/09/23 03:00 36.4 C L 75 18 123/63 97 Room Air 01/08/23 23:00 36.5 C 75 16 104/62 98 Room Air 01/08/23 23:00 79 Laboratory Results 01/09/23 06:01 01/09/23 06:01
[2023-01-09] MEDS ORDERED: PATIROMER CALCIUM SORBITEX 8.4 GM PACK PO STA (08:06)
[2023-01-09] MEDS ORDERED: SODIUM CHLORIDE 0.9% 500 ML IV SCH (08:15)
[2023-01-09] MEDS: EZETIMIBE 10 MG TAB PO SCH (08:20)
[2023-01-09] MEDS: SACCHAROMYCES BOULARDII 250 MG CAP PO SCH (08:20)
[2023-01-09] MEDS: FUROSEMIDE INJ 20 MG/2 ML VIAL IV SCH ×4 (08:20→17:37)
[2023-01-09] MEDS: PANTOprazole 40 MG TAB PO SCH ×2 (08:21→20:03)
[2023-01-09] MEDS: APIXABAN 5 MG TABLET PO SCH ×2 (08:21→20:07)
[2023-01-09] MEDS: TOPIRAMATE 100 MG TAB PO SCH ×3 (08:21→20:08)
[2023-01-09] MEDS: METOPROLOL SUCC 25MG EXT REL TAB PO SCH (08:21)
[2023-01-09] MEDS: OXcarbazepine 150 MG TABLET PO SCH ×2 (08:21→20:03)
[2023-01-09] MEDS: UREA (UREA-NA) 15 GM PACK PO SCH ×2 (08:22→20:05)
[2023-01-09] MEDS: MAGNESIUM CHLORIDE W/CALCIUM 64MG DELAYED REL TAB PO SCH ×2 (08:22→20:02)
--- NOTE | 2023-01-09 11:35 | Hospitalist Progress Note ---
Date of Service January 09, 2023 Assessment & Plan (1) SIADH (syndrome of inappropriate ADH production): (2) Hyponatremia: (3) Hypomagnesemia: (4) Coronary artery disease: (5) DMII (diabetes mellitus, type 2): (6) Gastroesophageal reflux disease: (7) Osteoarthritis: (8) Hyperlipidemia: (9) Hypothyroidism: (10) Chronic pain: (11) Diarrhea: Plan 77-year-old female presents as recommended by her outpatient PCP for electrolyte imbalance on outpatient labs; hyponatremia with serum sodium 121, hypomagnesemia mag 1.0. Patient with diarrhea over the last 1 week and known history of SIADH with an inpatient hospitalization 10/21 to 10/11/2025 with hyponatremia. . On Eliquis for history of DVT. Hyponatremia: History of SIADH: Serum sodium of 121 on admission; improved to 130 today. Urine electrolytes suggestive of SIADH. On fluid restriction of 1500 cc. Also started on oral urea and IV Lasix. Daily BMP. ALBERTINA Hyperkalemia Patient's potassium up trended to 6.0 today. EKG done and personally reviewed; normal sinus rhythm; no change in T waves. Lisinopril and oral potassium supplement held Nephrology on board; Lasix ordered for 4 times along with normal saline. She is also given 1 dose of Veltassa Repeat BMP at 6 PM. Hypomagnesemia: Acute uncontrolled Magnesium of 1.0 on admission; Improved to 1.8. Will order 2 g of IV magnesium; also on slow magnesium. Diarrhea: Likely because of electrolyte imbalance C. difficile and GI PCR negative. Fecal occult blood positive. Hemoglobin is stable around 8-9. Started on Protonix twice daily. Patient is on Eliquis and aspirin. Fairly recent DVT on November 2022; GI consulted for persistence severe diarrhea and fecal occult positive. Recommended Imodium. FOBT nonspecific at this time. Recommended to consider outpatient endoscopic work-up. Aspirin on hold. Will resume starting tomorrow AM. Chronic Anemia: Hemoglobin stabilized around 8 after initial downtrend. Continue to monitor. CAD: chronic stable status post stent placement History of DVT: Chronic stable Was at [facility] and initial DVT LLE while at rehab in November 2022 Takes Eliquis; continue Diabetes mellitus type 2: Chronic stable Takes metformin; hold while inpatient Place on on SSI FSBS 09/2022 A1c 5.9 Hypothyroidism: Chronic stable Last TSH 01/04 1.76 Continue home levothyroxine Osteoarthritis: Chronic pain: Chronic stable Takes Trileptal; continue HLD: Chronic stable Takes Zetia and atorvastatin; continue Disposition: PCP: Dr. Felton CODE STATUS: Full code VTE prophylaxis: On Eliquis PT OT ordered; patient lives alone at home. May benefit from rehab. Time spent evaluating patient, direct bedside care, chart review, placing orders, interpretation of diagnostic studies, discussion with consultants, patient, and family members, as well as other required patient management activities is 60 minutes. Please note the above document was generated using voice recognition software. It may contain grammatical, syntax or spelling errors. Any formal questions or concerns about the content, text or information contained within the body of this dictation should be directly addressed to the provider for clarification Admission and Anticipated Discharge Date Admission Date: January 05, 2023 Subjective Patient reports that her diarrhea is getting better. However, she had 1 episode of incontinence. She denies fever, chills or chest pain. Review of Systems Review of Systems: All systems reviewed & are unremarkable except as noted in Subjective Physical Exam Physical Exam: Constitutional: Alert orient x3; not in distress. Respiratory: Bilateral vesicular breath sound. Cardiovascular: RRR, no murmur, no edema Vessels: no JVD or carotid bruit Chest: normal inspection of chest Abdomen: normal bowel sounds, soft, nontender, no hepatosplenomegaly Musculoskeletal: no cyanosis or clubbing, extremities motor strength 5/5 Skin: no rashes, warm and dry normal turgor Neurologic: PERRL, EOMI, accommodation nl, no face palsy, no dysarthria CN's II- XI intact bilaterally and moves all extremities Psychiatric: A+Ox3, euthymic affect Results & Data Results & Data Vital Signs (Past 12 Hours) Vital Signs Temp Pulse Pulse Resp BP Pulse Ox O2 Del Method 01/09/23 07:39 36.8 C 68 17 129/72 98 Room Air 01/09/23 07:00 71 01/09/23 03:00 36.4 C L 75 18 123/63 97 Room Air Laboratory Results Laboratory Results WBC 3.97 K/ul (4.8-10.8) L 01/09/23 06:01 RBC 2.81 M/uL (4.20-5.40) L 01/09/23 06:01 Hgb 8.7 g/dl (12.0-16.0) L 01/09/23 06:01 Hct 26.4 % (37.0-47.0) L 01/09/23 06:01 MCV 94.0 fL (80.0-100.0) 01/09/23 06:01 MCH 31.0 pg (25.0-34.0) 01/09/23 06:01 MCHC 33.0 g/dL (32.0-36.0) 01/09/23 06:01 RDW Std Deviation 45.7 fL (36.4-46.3) 01/09/23 06:01 RDW Coeff of Mine 13.2 % (11.5-14.5) 01/09/23 06:01 Plt Count 218 K/uL (130-400) 01/09/23 06:01 MPV 10.5 fL (9.4-12.4) 01/09/23 06:01 Immature Gran % (Auto) 0.3 % 01/09/23 06:01 Neut % (Auto) 41.5 % 01/09/23 06:01 Lymph % (Auto) 44.8 % 01/09/23 06:01 [place] % (Auto) 12.6 % 01/09/23 06:01 Eos % (Auto) 0.0 % 01/09/23 06:01 Baso % (Auto) 0.8 % 01/09/23 06:01 Neut # (Auto) 1.65 K/uL (1.40-6.50) 01/09/23 06:01 Lymph # (Auto) 1.78 K/uL (1.20-3.40) 01/09/23 06:01 [place] # (Auto) 0.50 K/uL (0.11-0.59) 01/09/23 06:01 Eos # (Auto) 0.00 K/uL (0.00-0.50) 01/09/23 06:01 Baso # (Auto) 0.03 K/uL (0.00-0.20) 01/09/23 06:01 Immature Gran # (Auto) 0.01 K/uL (0.01-0.20) 01/09/23 06:01 Sodium 130 mmol/L (136-145) L 01/09/23 06:01 Potassium 6.0 mmol/L (3.5-5.1) H D 01/09/23 06:01 Chloride 103 mmol/L (98-107) 01/09/23 06:01 Carbon Dioxide 24 mmol/L (21-32) 01/09/23 06:01 Anion Gap 3 (3-11) 01/09/23 06:01 BUN 64 mg/dl (6-23) H D 01/09/23 06:01 Creatinine 1.45 mg/dl (0.6-1.2) H D 01/09/23 06:01 Est Cr Clr Drug Dosing 27.3 ml/min 01/09/23 06:01 Est GFR ( Amer) 39.9 ml/min 01/09/23 06:01 Est GFR (Non-Af Amer) 34.4 ml/min 01/09/23 06:01 BUN/Creatinine Ratio 44.1 (10-20) H 01/09/23 06:01 Glucose 82 mg/dl (70-99(Fasting)) 01/09/23 06:01 POC Glucose 93 mg/dl (70-99) 01/06/23 11:31 Estimat Average Glucose 103 mg/dl 01/06/23 06:28 Hemoglobin A1c 5.2 % (4.5-5.6) 01/06/23 06:28 Osmolality 264 mOsm/kg (280-300) L 01/06/23 18:01 Calcium 9.1 mg/dl (8.6-10.3) 01/09/23 06:01 Phosphorus 2.8 mg/dl (2.5-4.9) 01/06/23 06:28 Magnesium 1.4 mg/dl (1.7-2.4) L 01/08/23 06:39 Total Bilirubin 0.4 mg/dl (0.2-1.0) 01/06/23 06:35 AST 37 U/L (13-39) 01/06/23 06:35 ALT 28 U/L (7-52) 01/06/23 06:35 Alkaline Phosphatase 67 U/L (34-104) 01/06/23 06:35 Total Creatine Kinase 158 U/L (26-192) 01/05/23 14:35 Total Protein 5.2 gm/dl (6.0-8.3) L 01/06/23 06:35 Albumin 3.4 gm/dl (3.4-5.0) 01/06/23 06:35 Globulin 1.8 gm/dl (2.5-4.0) L 01/06/23 06:35 Albumin/Globulin Ratio 1.9 (0.9-2) 01/06/23 06:35 Lipase 46 U/L (11-82) 01/05/23 14:35 Urine Color Yellow 01/05/23 16:04 Urine Appearance Clear (Clear) 01/05/23 16:04 Urine pH 6.5 (4.5-7.5) 01/05/23 16:04 Ur Specific [place] 1.009 (1.000-1.030) 01/05/23 16:04 Urine Protein Negative (Negative) 01/05/23 16:04 Urine Glucose (UA) Negative (Negative) 01/05/23 16:04 Urine Ketones Negative (Negative) 01/05/23 16:04 Urine Blood Trace (Negative) H 01/05/23 16:04 Urine Nitrite Negative (Negative) 01/05/23 16:04 Urine Bilirubin Negative (Negative) 01/05/23 16:04 Urine Urobilinogen Negative (Negative) 01/05/23 16:04 Ur Leukocyte Esterase Trace (Negative) H 01/05/23 16:04 Urine WBC (Auto) 1-5 /hpf (0-5) 01/05/23 16:04 Urine RBC (Auto) 0-4 /hpf (0-4) 01/05/23 16:04 U Hyaline Cast (Auto) 0 /lpf (0-5) 01/05/23 16:04 U Epithel Cells (Auto) >30 /lpf (0-5) H 01/05/23 16:04 Urine Bacteria (Auto) 1+ (Negative) H 01/05/23 16:04 Calcium Oxalate Crystal Present (None Prsent) A 01/05/23 16:04 Urine Yeast Not Reportable 01/05/23 16:04 Urine Osmolality 274 mOsm/kg (500-800) L 01/05/23 16:07 Ur Random Sodium 60 mmol/L 01/05/23 16:07 Stool Occult Bld Scrn Positive (Negative) A 01/05/23 19:36 Stl C. cayetanensis PCR Not Detected (NotDetected) 01/05/23 19:36 Stool Rotavirus A PCR Not Detected (NotDetected) 01/05/23 19:36 Stl Adenov F 40/41 PCR Not Detected (NotDetected) 01/05/23 19:36 Stool Astrovirus (PCR) Not Detected (NotDetected) 01/05/23 19:36 Stool Campylobacter PCR Not Detected (NotDetected) 01/05/23 19:36 Stl C. diff Tox B Gene Negative Cdiff Gene (Neg) 01/05/23 19:36 Stool Cryptosporidium PCR Not Detected (NotDetected) 01/05/23 19:36 Stl E.coli Shiga Tox PCR Not Detected (NotDetected) 01/05/23 19:36 Stl Enterotoxigenic E PCR Not Detected (NotDetected) 01/05/23 19:36 Stool EPEC (PCR) Not Detected (NotDetected) 01/05/23 19:36 Stool EAEC (PCR) Not Detected (NotDetected) 01/05/23 19:36 Stl E. histolytica PCR Not Detected (NotDetected) 01/05/23 19:36 Stool Giardia Lamblia PCR Not Detected (NotDetected) 01/05/23 19:36 Stool Salmonella PCR Not Detected (NotDetected) 01/05/23 19:36 Stool Sapovirus (PCR) Not Detected (NotDetected) 01/05/23 19:36 Stl P. shigelloides PCR Not Detected (NotDetected) 01/05/23 19:36 Stl Shigella/EIEC PCR Not Detected (NotDetected) 01/05/23 19:36 St Y.enterocolitica PCR Not Detected (NotDetected) 01/05/23 19:36 Stool Vibrio (PCR) Not Detected (NotDetected) 01/05/23 19:36 Stl Vibrio cholerae PCR Not Detected (NotDetected) 01/05/23 19:36 Stl Norovirus GI/GII PCR Not Detected (NotDetected) 01/05/23 19:36 Impressions Venous Doppler Study 01/05/23 17:13 ULTRASOUND RIGHT LOWER EXTREMITY VENOUS CLINICAL HISTORY: Right lower extremity edema. Reported history of DVT. COMPARISON STUDY: No priors. TECHNIQUE: Real-time, grayscale, and color Doppler sonography of the deep veins of the right lower extremity was performed from the inguinal crease to the calf. Compression and augmentation were utilized. FINDINGS: There is no sonographic evidence of deep venous thrombosis identified in the right lower extremity. The common femoral, superficial femoral, and popliteal veins are patent and normally compressible. The greater saphenous vein and the profunda femoris vein at the junction with the common femoral vein are clear. The visualized calf veins are patent. IMPRESSION: There is no sonographic evidence of deep venous thrombosis identified in the right lower extremity. ACT 112: Negative or not required by law. Electronically signed by: Manoj Burns M.D. 01/05/2023 11:04 PM
[2023-01-09] MEDS: CHOLECALCIFEROL 5,000 UNITS 125 MCG TAB PO SCH (12:34)
[2023-01-09 19:31] LABS: BUN Creatinine Ratio 34.2 (10-20); Calcium 9.3 mg/dl (8.6-10.3); Est GFR (African American) 24.2 ml/min; Est GFR (Non-African American) 20.9 ml/min; Magnesium 1.7 mg/dl (1.7-2.4); Potassium 4.9 mmol/L (3.5-5.1)
[2023-01-09] MEDS: ATORVASTATIN 40 MG TAB PO SCH (20:05)
[2023-01-09] MEDS: amLODIPine BESYLATE 5 MG TAB PO SCH (20:07)
[2023-01-10] MEDS: TOPIRAMATE 100 MG TAB PO SCH ×3 (06:10→20:01)
[2023-01-10] MEDS: LEVOTHYROXINE SODIUM 112 MCG TABLET PO SCH (06:11)
[2023-01-10 07:45] LABS: Basophils # (auto) 0.02 K/uL (0.00-0.20); Basophils % (auto) 0.6 %; Hematocrit (blood only) 26.4 % (37.0-47.0); Hemoglobin 8.8 g/dl (12.0-16.0); Immature Granulocytes # (auto) 0.02 K/uL (0.01-0.20); Immature Granulocytes % (auto) 0.6 %; Lymphocytes # (auto) 1.52 K/uL (1.20-3.40); Lymphocytes % (auto) 43.3 %; Mean Corpuscular Hemoglobin 31.1 pg (25.0-34.0); Mean Corpuscular Hgb Conc 33.3 g/dL (32.0-36.0); Mean Corpuscular Volume 93.3 fL (80.0-100.0); Mean Platelet Volume 10.5 fL (9.4-12.4); Monocytes # (auto) 0.46 K/uL (0.11-0.59); Monocytes % (auto) 13.1 %; Neutrophils # (auto) 1.49 K/uL (1.40-6.50); Neutrophils % (auto) 42.4 %; Platelet Count 226 K/uL (130-400); RDW Coefficient of Variation 13.2 % (11.5-14.5); RDW Standard Deviation 45.5 fL (36.4-46.3); Red Blood Count 2.83 M/uL (4.20-5.40); White Blood Count 3.51 K/ul (4.8-10.8)
[2023-01-10 07:52] LABS: BUN Creatinine Ratio 43.6 (10-20); Calcium 9.1 mg/dl (8.6-10.3); Creatinine Clr Calc Pharmacy 24.2 ml/min; Est GFR (African American) 34.6 ml/min; Est GFR (Non-African American) 29.9 ml/min; Magnesium 1.7 mg/dl (1.7-2.4); Potassium 4.6 mmol/L (3.5-5.1)
[2023-01-10] MEDS: PANTOprazole 40 MG TAB PO SCH ×2 (08:26→19:57)
[2023-01-10] MEDS: MAGNESIUM CHLORIDE W/CALCIUM 64MG DELAYED REL TAB PO SCH ×2 (08:26→19:57)
[2023-01-10] MEDS: SACCHAROMYCES BOULARDII 250 MG CAP PO SCH (08:26)
[2023-01-10] MEDS: EZETIMIBE 10 MG TAB PO SCH (08:26)
[2023-01-10] MEDS: METOPROLOL SUCC 25MG EXT REL TAB PO SCH (08:26)
[2023-01-10] MEDS: UREA (UREA-NA) 15 GM PACK PO SCH ×2 (08:26→19:55)
[2023-01-10] MEDS: APIXABAN 5 MG TABLET PO SCH ×2 (08:26→20:01)
[2023-01-10] MEDS: OXcarbazepine 150 MG TABLET PO SCH ×2 (08:26→20:00)
[2023-01-10] MEDS: ASPIRIN 81 MG ECTAB PO SCH (08:27)
--- NOTE | 2023-01-10 09:05 | Nephrology Progress Note ---
Date of Service January 10, 2023 Assessment & Plan (1) Hyponatremia: Plan: presenting sodium 121 at 1430 on 01/05. up to 124 01/06 after essentially 600 mL net NS (had 1L NS, got 400 mL D5W w/ riders). pt w/ chronic hyponatremia usually from low solute diet presenting w/ diarrhea / volume depletion/low solute diet by hx. would expect uOsms w/ either vol depletion or SIADH to be significantly higher than she had on presentation however. 3rd admission in 2.5 mos with sodium issues, ambulatory issues including 2 falls. sNa 135 today, acceptable -goal sNa tomorrow AM is wnl -continue FR 1.5 L, toward which protein shakes don't count -continue urea 15 gm bid >> for now ; see below -K supplements on hold as is lasix >>cautious trial of salt tabs though generally would avoid this in pt w/ HTN edema; she dislikes urea intensely and it's hard to get as OP and she has had ALBERTINA w/ lasix /dose is hard to titrate; bp has been if anything soft > 1 gm bid -maintain eukalemia >>unclear if she will be d/c on urea >> if she is and if she goes home will need case mgt/d/c inventory control planner assistance in arranging this OTC med as OP >> it is often costly and not in stock >> pharmacies have to order it in which can take 2-3 days; cheapest sources on line and I have info on that; recommend ordering 2 week supply of 15 gm bid urea b/c we may need to pivot to/from this med as OP; I will coordinate w/ d/c inventory control planner (2) ALBERTINA (acute kidney injury): Plan: abrupt worsening of renal function on lasix, lisinopril > improved this am but still work to do here -held ACEI -for today unlike yesterday hold lasix (3) Hypomagnesemia: Plan: presenting mag 1.0. on mag supplements bid > wnl today (4) Hyperkalemia: Plan: K 6 9/4 am on supplements, lasix, lisinpril w/ worsening renal function >K and ACEI held; had aggressive course of lasix and veltassa >resolved Admission and Anticipated Discharge Date Admission Date: January 05, 2023 Subjective ambulated 200 feet w/ PT yesterday though she tells me she does not remember this. Denies shortness of breath. Notes had worse edema last evening but it is improved today still right greater than left. No nausea vomiting. Review of Systems Review of Systems: All systems reviewed & are unremarkable except as noted in Subjective Physical Exam Constitutional: well developed (sitting up in chair), well nourished, + frail appearing and cooperative Eyes: EOM intact bilaterally ENMT: Ears: no external ear abnormality Nose: no external nose abnormality Mouth: + dry oral mucous membranes Neck: no nuchal rigidity Respiratory: normal respiratory effort Auscultation: + diminished lung sounds Cardiovascular: Rate/Rhythm: regular rate and regular rhythm Extremities: + edema (trace) Gastrointestinal (Abdomen): Inspection/Auscultation: normal bowel sounds Percussion/Palpation: abdomen soft; abdomen nontender Musculoskeletal: Extremities: strength 5/5 throughout Skin: no rashes, warm and dry Results & Data Vital Signs (Past 12 Hours) Vital Signs Temp Pulse Pulse Resp BP BP Pulse Ox 01/10/23 07:00 74 01/10/23 07:07 36.5 C 72 18 124/67 98 01/10/23 02:30 36.5 C 80 18 101/61 97 01/10/23 00:59 79 01/09/23 22:28 36.7 C 81 18 99/63 L 97 O2 Del Method 01/10/23 07:00 01/10/23 07:07 Room Air 01/10/23 02:30 Room Air 01/10/23 00:59 01/09/23 22:28 Room Air Laboratory Results 01/10/23 06:47 01/10/23 06:47
[2023-01-10] MEDS: SODIUM CHLORIDE 1 GM TABLET PO SCH ×2 (11:17→19:59)
[2023-01-10] MEDS: CHOLECALCIFEROL 5,000 UNITS 125 MCG TAB PO SCH (11:17)
--- NOTE | 2023-01-10 12:16 | Hospitalist Progress Note ---
Date of Service January 10, 2023 Assessment & Plan (1) SIADH (syndrome of inappropriate ADH production): (2) Hyponatremia: (3) Hypomagnesemia: (4) Coronary artery disease: (5) DMII (diabetes mellitus, type 2): (6) Gastroesophageal reflux disease: (7) Osteoarthritis: (8) Hyperlipidemia: (9) Hypothyroidism: (10) Chronic pain: (11) Diarrhea: Plan 77-year-old female presents as recommended by her outpatient PCP for electrolyte imbalance on outpatient labs; hyponatremia with serum sodium 121, hypomagnesemia mag 1.0. Patient with diarrhea over the last 1 week and known history of SIADH with an inpatient hospitalization 10/21 to 10/11/2025 with hyponatremia. . On Eliquis for history of DVT. Hyponatremia: History of SIADH: Serum sodium of 121 on admission; improved to 135 today. Urine electrolytes suggestive of SIADH. On fluid restriction of 1500 cc. On oral urea. Nephrology on board; restarted on sodium chloride tablets 1 g twice daily. We will follow-up on discharge recommendation when medically ready. ALBERTINA Hyperkalemia Patient's potassium up trended to 6.0 on 01/09/2023. EKG done and personally reviewed; normal sinus rhythm; no change in T waves. She was given Veltassa and Lasix. Lisinopril and oral potassium supplement held Her creatinine also up trended to 2.19; slightly downtrending today. Not at baseline. BMP tomorrow AM. Avoid nephrotoxic agent. Hypomagnesemia: Acute uncontrolled Magnesium of 1.0 on admission; Improved to 1.7 Continue on oral magnesium supplement Diarrhea: Likely because of electrolyte imbalance C. difficile and GI PCR negative. Fecal occult blood positive. Hemoglobin is stable around 8-9. Started on Protonix twice daily. Patient is on Eliquis and aspirin. Fairly recent DVT on November 2022; GI consulted for persistence severe diarrhea and fecal occult positive. Recommended Imodium. FOBT nonspecific at this time. Recommended to consider outpatient endoscopic work-up. Chronic Anemia: Hemoglobin stabilized around 8 after initial downtrend. Continue to monitor. CAD: chronic stable status post stent placement History of DVT: Chronic stable Was at [facility] and initial DVT LLE while at rehab in November 2022 Takes Eliquis; continue Diabetes mellitus type 2: Chronic stable Takes metformin; hold while inpatient Place on on SSI FSBS 09/2022 A1c 5.9 Hypothyroidism: Chronic stable Last TSH 01/04 1.76 Continue home levothyroxine Osteoarthritis: Chronic pain: Chronic stable Takes Trileptal; continue HLD: Chronic stable Takes Zetia and atorvastatin; continue Disposition: PCP: Dr. Felton CODE STATUS: Full code VTE prophylaxis: On Eliquis PT OT ordered; patient lives alone at home. PT OT recommends home. Discharge home after resolution of acute kidney injury. Time spent evaluating patient, direct bedside care, chart review, placing orders, interpretation of diagnostic studies, discussion with consultants, patient, and family members, as well as other required patient management activities is 60 minutes. Please note the above document was generated using voice recognition software. It may contain grammatical, syntax or spelling errors. Any formal questions or concerns about the content, text or information contained within the body of this dictation should be directly addressed to the provider for clarification Admission and Anticipated Discharge Date Admission Date: January 05, 2023 Subjective Patient seen and examined at bedside. She is sitting up on the bed; not in distress. She reports that her diarrhea has resolved. Was able to walk with PT yesterday on the hallways. No overnight events. Review of Systems Review of Systems: All systems reviewed & are unremarkable except as noted in Subjective Physical Exam Physical Exam: Constitutional: Alert orient x3; not in distress. Respiratory: Bilateral vesicular breath sound. Cardiovascular: RRR, no murmur, no edema Vessels: no JVD or carotid bruit Chest: normal inspection of chest Abdomen: normal bowel sounds, soft, nontender, no hepatosplenomegaly Musculoskeletal: no cyanosis or clubbing, extremities motor strength 5/5 Skin: no rashes, warm and dry normal turgor Neurologic: PERRL, EOMI, accommodation nl, no face palsy, no dysarthria CN's II- XI intact bilaterally and moves all extremities Psychiatric: A+Ox3, euthymic affect Results & Data Results & Data Vital Signs (Past 12 Hours) Vital Signs Temp Pulse Pulse Resp BP BP Pulse Ox 01/10/23 11:04 37 C 82 18 117/64 96 01/10/23 07:00 74 01/10/23 07:07 36.5 C 72 18 124/67 98 01/10/23 02:30 36.5 C 80 18 101/61 97 01/10/23 00:59 79 O2 Del Method 01/10/23 11:04 Room Air 01/10/23 07:00 01/10/23 07:07 Room Air 01/10/23 02:30 Room Air 01/10/23 00:59 Laboratory Results Laboratory Results WBC 3.51 K/ul (4.8-10.8) L 01/10/23 06:47 RBC 2.83 M/uL (4.20-5.40) L 01/10/23 06:47 Hgb 8.8 g/dl (12.0-16.0) L 01/10/23 06:47 Hct 26.4 % (37.0-47.0) L 01/10/23 06:47 MCV 93.3 fL (80.0-100.0) 01/10/23 06:47 MCH 31.1 pg (25.0-34.0) 01/10/23 06:47 MCHC 33.3 g/dL (32.0-36.0) 01/10/23 06:47 RDW Std Deviation 45.5 fL (36.4-46.3) 01/10/23 06:47 RDW Coeff of Mine 13.2 % (11.5-14.5) 01/10/23 06:47 Plt Count 226 K/uL (130-400) 01/10/23 06:47 MPV 10.5 fL (9.4-12.4) 01/10/23 06:47 Immature Gran % (Auto) 0.6 % 01/10/23 06:47 Neut % (Auto) 42.4 % 01/10/23 06:47 Lymph % (Auto) 43.3 % 01/10/23 06:47 [place] % (Auto) 13.1 % 01/10/23 06:47 Eos % (Auto) 0.0 % 01/10/23 06:47 Baso % (Auto) 0.6 % 01/10/23 06:47 Neut # (Auto) 1.49 K/uL (1.40-6.50) 01/10/23 06:47 Lymph # (Auto) 1.52 K/uL (1.20-3.40) 01/10/23 06:47 Archuleta # (Auto) 0.46 K/uL (0.11-0.59) 01/10/23 06:47 Eos # (Auto) 0.00 K/uL (0.00-0.50) 01/10/23 06:47 Baso # (Auto) 0.02 K/uL (0.00-0.20) 01/10/23 06:47 Immature Gran # (Auto) 0.02 K/uL (0.01-0.20) 01/10/23 06:47 Sodium 135 mmol/L (136-145) L 01/10/23 06:47 Potassium 4.6 mmol/L (3.5-5.1) 01/10/23 06:47 Chloride 105 mmol/L (98-107) 01/10/23 06:47 Carbon Dioxide 25 mmol/L (21-32) 01/10/23 06:47 Anion Gap 5 (3-11) 01/10/23 06:47 BUN 71 mg/dl (6-23) H 01/10/23 06:47 Creatinine 1.63 mg/dl (0.6-1.2) H D 01/10/23 06:47 Est Cr Clr Drug Dosing 24.2 ml/min 01/10/23 06:47 Est GFR ( Amer) 34.6 ml/min 01/10/23 06:47 Est GFR (Non-Af Amer) 29.9 ml/min 01/10/23 06:47 BUN/Creatinine Ratio 43.6 (10-20) H 01/10/23 06:47 Glucose 89 mg/dl (70-99(Fasting)) 01/10/23 06:47 POC Glucose 93 mg/dl (70-99) 01/06/23 11:31 Estimat Average Glucose 103 mg/dl 01/06/23 06:28 Hemoglobin A1c 5.2 % (4.5-5.6) 01/06/23 06:28 Osmolality 264 mOsm/kg (280-300) L 01/06/23 18:01 Calcium 9.1 mg/dl (8.6-10.3) 01/10/23 06:47 Phosphorus 2.8 mg/dl (2.5-4.9) 01/06/23 06:28 Magnesium 1.7 mg/dl (1.7-2.4) 01/10/23 06:47 Total Bilirubin 0.4 mg/dl (0.2-1.0) 01/06/23 06:35 AST 37 U/L (13-39) 01/06/23 06:35 ALT 28 U/L (7-52) 01/06/23 06:35 Alkaline Phosphatase 67 U/L (34-104) 01/06/23 06:35 Total Creatine Kinase 158 U/L (26-192) 01/05/23 14:35 Total Protein 5.2 gm/dl (6.0-8.3) L 01/06/23 06:35 Albumin 3.4 gm/dl (3.4-5.0) 01/06/23 06:35 Globulin 1.8 gm/dl (2.5-4.0) L 01/06/23 06:35 Albumin/Globulin Ratio 1.9 (0.9-2) 01/06/23 06:35 Lipase 46 U/L (11-82) 01/05/23 14:35 Urine Color Yellow 01/05/23 16:04 Urine Appearance Clear (Clear) 01/05/23 16:04 Urine pH 6.5 (4.5-7.5) 01/05/23 16:04 Ur Specific [place] 1.009 (1.000-1.030) 01/05/23 16:04 Urine Protein Negative (Negative) 01/05/23 16:04 Urine Glucose (UA) Negative (Negative) 01/05/23 16:04 Urine Ketones Negative (Negative) 01/05/23 16:04 Urine Blood Trace (Negative) H 01/05/23 16:04 Urine Nitrite Negative (Negative) 01/05/23 16:04 Urine Bilirubin Negative (Negative) 01/05/23 16:04 Urine Urobilinogen Negative (Negative) 01/05/23 16:04 Ur Leukocyte Esterase Trace (Negative) H 01/05/23 16:04 Urine WBC (Auto) 1-5 /hpf (0-5) 01/05/23 16:04 Urine RBC (Auto) 0-4 /hpf (0-4) 01/05/23 16:04 U Hyaline Cast (Auto) 0 /lpf (0-5) 01/05/23 16:04 U Epithel Cells (Auto) >30 /lpf (0-5) H 01/05/23 16:04 Urine Bacteria (Auto) 1+ (Negative) H 01/05/23 16:04 Calcium Oxalate Crystal Present (None Prsent) A 01/05/23 16:04 Urine Yeast Not Reportable 01/05/23 16:04 Urine Osmolality 274 mOsm/kg (500-800) L 01/05/23 16:07 Ur Random Sodium 60 mmol/L 01/05/23 16:07 Stool Occult Bld Scrn Positive (Negative) A 01/05/23 19:36 Stl C. cayetanensis PCR Not Detected (NotDetected) 01/05/23 19:36 Stool Rotavirus A PCR Not Detected (NotDetected) 01/05/23 19:36 Stl Adenov F 40/41 PCR Not Detected (NotDetected) 01/05/23 19:36 Stool Astrovirus (PCR) Not Detected (NotDetected) 01/05/23 19:36 Stool Campylobacter PCR Not Detected (NotDetected) 01/05/23 19:36 Stl C. diff Tox B Gene Negative Cdiff Gene (Neg) 01/05/23 19:36 Stool Cryptosporidium PCR Not Detected (NotDetected) 01/05/23 19:36 Stl E.coli Shiga Tox PCR Not Detected (NotDetected) 01/05/23 19:36 Stl Enterotoxigenic E PCR Not Detected (NotDetected) 01/05/23 19:36 Stool EPEC (PCR) Not Detected (NotDetected) 01/05/23 19:36 Stool EAEC (PCR) Not Detected (NotDetected) 01/05/23 19:36 Stl E. histolytica PCR Not Detected (NotDetected) 01/05/23 19:36 Stool Giardia Lamblia PCR Not Detected (NotDetected) 01/05/23 19:36 Stool Salmonella PCR Not Detected (NotDetected) 01/05/23 19:36 Stool Sapovirus (PCR) Not Detected (NotDetected) 01/05/23 19:36 Stl P. shigelloides PCR Not Detected (NotDetected) 01/05/23 19:36 Stl Shigella/EIEC PCR Not Detected (NotDetected) 01/05/23 19:36 St Y.enterocolitica PCR Not Detected (NotDetected) 01/05/23 19:36 Stool Vibrio (PCR) Not Detected (NotDetected) 01/05/23 19:36 Stl Vibrio cholerae PCR Not Detected (NotDetected) 01/05/23 19:36 Stl Norovirus GI/GII PCR Not Detected (NotDetected) 01/05/23 19:36 Impressions Venous Doppler Study 01/05/23 17:13 ULTRASOUND RIGHT LOWER EXTREMITY VENOUS CLINICAL HISTORY: Right lower extremity edema. Reported history of DVT. COMPARISON STUDY: No priors. TECHNIQUE: Real-time, grayscale, and color Doppler sonography of the deep veins of the right lower extremity was performed from the inguinal crease to the calf. Compression and augmentation were utilized. FINDINGS: There is no sonographic evidence of deep venous thrombosis identified in the right lower extremity. The common femoral, superficial femoral, and popliteal veins are patent and normally compressible. The greater saphenous vein and the profunda femoris vein at the junction with the common femoral vein are clear. The visualized calf veins are patent. IMPRESSION: There is no sonographic evidence of deep venous thrombosis identified in the right lower extremity. ACT 112: Negative or not required by law. Electronically signed by: Manoj Burns M.D. 01/05/2023 11:04 PM
--- NOTE | 2023-01-10 14:39 | Electrocardiogram Report ---
Test Reason : Blood Pressure : / mmHG Vent. Rate : 086 BPM Atrial Rate : 086 BPM P-R Int : 156 ms QRS Dur : 100 ms QT Int : 360 ms P-R-T Axes : 076 052 065 degrees QTc Int : 430 ms Normal sinus rhythm Normal ECG When compared with ECG of 05-JAN-2023 14:30, No significant change was found Confirmed by Darion Bell ([id number]) on 01/10/2023 2:39:10 PM Referred By: Naty Fang Confirmed By:Johnnie Bell
[2023-01-10] MEDS: ATORVASTATIN 40 MG TAB PO SCH (19:58)
[2023-01-10] MEDS: amLODIPine BESYLATE 5 MG TAB PO SCH (19:59)
[2023-01-11] MEDS: LEVOTHYROXINE SODIUM 112 MCG TABLET PO SCH (06:01)
[2023-01-11] MEDS: TOPIRAMATE 100 MG TAB PO SCH ×3 (06:01→20:14)
[2023-01-11 07:39] LABS: BUN Creatinine Ratio 48.4 (10-20); Calcium 8.8 mg/dl (8.6-10.3); Creatinine Clr Calc Pharmacy 30.8 ml/min; Est GFR (African American) 46.4 ml/min; Magnesium 1.7 mg/dl (1.7-2.4); Potassium 4.3 mmol/L (3.5-5.1)
[2023-01-11] MEDS: SODIUM CHLORIDE 1 GM TABLET PO SCH ×2 (08:39→20:13)
[2023-01-11] MEDS: APIXABAN 5 MG TABLET PO SCH ×2 (08:39→20:12)
[2023-01-11] MEDS: MAGNESIUM CHLORIDE W/CALCIUM 64MG DELAYED REL TAB PO SCH ×2 (08:39→20:12)
[2023-01-11] MEDS: METOPROLOL SUCC 25MG EXT REL TAB PO SCH (08:39)
[2023-01-11] MEDS: ASPIRIN 81 MG ECTAB PO SCH (08:40)
[2023-01-11] MEDS: EZETIMIBE 10 MG TAB PO SCH (08:40)
[2023-01-11] MEDS: PANTOprazole 40 MG TAB PO SCH ×2 (08:40→20:13)
[2023-01-11] MEDS: UREA (UREA-NA) 15 GM PACK PO SCH (08:40)
[2023-01-11] MEDS: SACCHAROMYCES BOULARDII 250 MG CAP PO SCH (08:40)
[2023-01-11] MEDS: OXcarbazepine 150 MG TABLET PO SCH ×2 (08:40→20:13)
--- NOTE | 2023-01-11 09:56 | Nephrology Progress Note ---
Date of Service January 11, 2023 Assessment & Plan (1) Hyponatremia: Plan: presenting sodium 121 at 1430 on 01/05. up to 124 01/06 after essentially 600 mL net NS (had 1L NS, got 400 mL D5W w/ riders). pt w/ chronic hyponatremia usually from low solute diet presenting w/ diarrhea / volume depletion/low solute diet by hx. would expect uOsms w/ either vol depletion or SIADH to be significantly higher than she had on presentation however. 3rd admission in 2.5 mos with sodium issues, ambulatory issues including 2 falls. sNa 135 today, acceptable -goal sNa tomorrow AM is wnl as it was today -continue FR 1.5 L, toward which protein shakes don't count >>>held urea >>plan lasix today 20 mg po and then sat ; for now no k >>cautious trial of salt tabs underway given her hx of HTN edema (pt dislikes urea intensely and it's hard to get as OP and she has had ALBERTINA w/ lasix /dose is hard to titrate; bp has been if anything soft) cont 1 gm bid -maintain eukalemia -hold lisinopril -held amlodipine b/c would like to add lisinopril at some point and bp soft May be d/c soon but favor another 1-2 days to titrate meds. Tentative neph d/c recs -salt tabs 1 gm bid -FR 1.5L and protein shakes don't count -lasix 20 mg MWF (starting next week) -may or may not need lisinopril 10 mg daily -d/c on mag supplements as currently ordered -needs to have a ONE WEEK supply of urea 15 gm bid on hand though will try to avoid using routinely; see case mgt discussion on this and on my note from yesterday's note; will need help from [facility] to order/ensure availability -will need very close f/u w/ [facility] given frequent hospital stays this summer -[facility] d/c appt [facility] preferred w/ me or my partners in 2-4 wks w/ bmp, magnesium, urine osms, serum osms, rd urine sodium a few days prior to appt; renal RN to order labs care coordinated w/ dr garzon (2) ALBERTINA (acute kidney injury): Plan: improving but not resolved after abrupt worsening of renal function on lasix, lisinopril >still work to do here. baseline is 1.0-1.1 creat -held ACEI -for today low dose lasix (3) Hypomagnesemia: Plan: presenting mag 1.0. on mag supplements bid > again wnl today (4) Hyperkalemia: Plan: K 6 9/4 am on supplements, lasix, lisinpril w/ worsening renal function >K and ACEI held; had aggressive course of lasix and veltassa >resolved Admission and Anticipated Discharge Date Admission Date: January 05, 2023 Subjective No acute interval clinical events. No edema. No shortness of breath. Remains fearful of falling at home and of bouncing back to the hospital given that this is her third admission for similar issues Review of Systems Review of Systems: All systems reviewed & are unremarkable except as noted in Subjective Physical Exam Constitutional: well developed (sitting up in chair), well nourished, + frail appearing and cooperative Eyes: EOM intact bilaterally ENMT: Ears: no external ear abnormality Nose: no external nose abnormality Mouth: + dry oral mucous membranes Neck: no nuchal rigidity Respiratory: normal respiratory effort Auscultation: + diminished lung sounds Cardiovascular: Rate/Rhythm: regular rate and regular rhythm Extremities: + edema (trace) Gastrointestinal (Abdomen): Inspection/Auscultation: normal bowel sounds Percussion/Palpation: abdomen soft; abdomen nontender Musculoskeletal: Extremities: strength 5/5 throughout Skin: no rashes, warm and dry Results & Data Vital Signs (Past 12 Hours) Vital Signs Temp Pulse Pulse Resp BP BP Pulse Ox 01/11/23 08:00 71 01/11/23 07:37 36.6 C 77 18 129/77 97 01/11/23 03:53 36.5 C 77 18 120/52 L 97 01/11/23 00:10 36.7 C 80 16 113/63 97 01/11/23 00:13 74 O2 Del Method 01/11/23 08:00 01/11/23 07:37 Room Air 01/11/23 03:53 Room Air 01/11/23 00:10 Room Air 01/11/23 00:13 Laboratory Results 01/10/23 06:47 01/11/23 06:49
[2023-01-11] MEDS ORDERED: FUROSEMIDE 20 MG TAB PO SCH (12:00)
[2023-01-11] MEDS: CHOLECALCIFEROL 5,000 UNITS 125 MCG TAB PO SCH (12:14)
--- NOTE | 2023-01-11 14:33 | Hospitalist Progress Note ---
Date of Service January 11, 2023 Assessment & Plan (1) SIADH (syndrome of inappropriate ADH production): (2) Hyponatremia: (3) Hypomagnesemia: (4) Coronary artery disease: (5) DMII (diabetes mellitus, type 2): (6) Gastroesophageal reflux disease: (7) Osteoarthritis: (8) Hyperlipidemia: (9) Hypothyroidism: (10) Chronic pain: (11) Diarrhea: Plan Patient is a 77 yr female who presents as recommended by her outpatient PCP for electrolyte imbalance on outpatient labs; hyponatremia with serum sodium 121, hypomagnesemia mag 1.0. Patient with diarrhea over the last 1 week and known history of SIADH with an inpatient hospitalization 10/21 to 10/11/2025 with hyponatremia. . On Eliquis for history of DVT. Hyponatremia: H/O SIADH Serum sodium of 121 on admission Monitor Sodium levels:137 today Continue salt tablets, fluid restriction, Lasix as per nephrology Appreciate nephrology input Held urea for now Needs follow-up with nephrology upon discharge ALBERTINA Hyperkalemia Lisinopril on hold Received Veltassa Hyperkalemia resolved Cr levels improving Monitor renal function Appreciate nephrology input Avoid nephrotoxic agents as able Hypomagnesemia: Continue on oral magnesium supplement Monitor Diarrhea: unclear etiology C. difficile and GI PCR negative. Fecal occult blood positive. Hemoglobin stable Started on Protonix twice daily. Patient is on Eliquis and aspirin. Fairly recent DVT on November 2022; GI consulted for persistence severe diarrhea and fecal occult positive. Advised to follow-up with GI upon discharge for possible EGD as outpatient Diarrhea resolved Chronic Anemia: Hemoglobin stable Continue to monitor. CAD: chronic stable s/p stent placement Continue aspirin, Lipitor, metoprolol History of DVT: Chronic stable [facility] and [facility] DVT LLE while at rehab in November 2022 Continue Eliquis Diabetes mellitus type 2: Takes metformin; hold while inpatient 09/2022 A1c 5.9 Continue insulin while hospitalized Monitor Hypothyroidism: Last TSH 01/04 1.76 Continue levothyroxine Osteoarthritis: Chronic pain: as per records HLD: Continue Zetia, Lipitor DVT Px: Eliquis Code Status Full Code Disposition PT/OT: recommends return Home Home with HH as able Admission and Anticipated Discharge Date Admission Date: January 05, 2023 Subjective Patient is seen and examined at bedside Offers no new complaints today No recurrence of diarrhea currently Sodium levels improved Discussed with nephrology today Patient eager to get discharged Denies any chest pain, dyspnea, dizziness, nausea, vomiting, abdominal pain No other complaints Review of Systems Review of Systems: All systems reviewed & are unremarkable except as noted in Subjective Physical Exam Physical Exam: Physical Exam: Vitals signs as noted above General Appearance:Moderately built and nourished, no apparent distress Head: normocephalic, Atraumatic Eyes: normal inspection, EOMI Neck: supple, Trachea midline Respiratory/Chest: Normal breath sounds, CTA, No accessory muscle use Cardiovascular: S1, S2, No murmur Abdomen/GI:Soft, Non tender, Bowel sounds present Extremities/Musculoskeletal:normal inspection, Trace pedal edema Neurologic/Psych:AAOX3, grossly no focal neurological deficits Skin: normal color, warm Results & Data Results & Data Vital Signs (Past 12 Hours) Vital Signs Temp Pulse Pulse Resp BP BP Pulse Ox 01/11/23 10:31 36.6 C 84 18 118/69 96 01/11/23 08:00 71 01/11/23 07:37 36.6 C 77 18 129/77 97 01/11/23 03:53 36.5 C 77 18 120/52 L 97 O2 Del Method 01/11/23 10:31 Room Air 01/11/23 08:00 01/11/23 07:37 Room Air 01/11/23 03:53 Room Air Laboratory Results [facility] 01/11/23 06:49 Sodium 137 Potassium 4.3 Chloride 109 H Carbon Dioxide 23 BUN 62 H Creatinine 1.28 H D Glucose 85 Calcium 8.8
[2023-01-11] MEDS: ATORVASTATIN 40 MG TAB PO SCH (20:12)
[2023-01-12] MEDS: TOPIRAMATE 100 MG TAB PO SCH ×3 (06:08→20:53)
[2023-01-12] MEDS: LEVOTHYROXINE SODIUM 112 MCG TABLET PO SCH (06:08)
[2023-01-12 06:14] LABS: BUN Creatinine Ratio 45.8 (10-20); Calcium 9.1 mg/dl (8.6-10.3); Creatinine Clr Calc Pharmacy 32.8 ml/min; Est GFR (African American) 50.1 ml/min; Est GFR (Non-African American) 43.3 ml/min; Magnesium 1.7 mg/dl (1.7-2.4); Potassium 4.7 mmol/L (3.5-5.1)
[2023-01-12] MEDS: METOPROLOL SUCC 25MG EXT REL TAB PO SCH (08:28)
[2023-01-12] MEDS: MAGNESIUM CHLORIDE W/CALCIUM 64MG DELAYED REL TAB PO SCH ×2 (08:28→20:49)
[2023-01-12] MEDS: SACCHAROMYCES BOULARDII 250 MG CAP PO SCH (08:28)
[2023-01-12] MEDS: SODIUM CHLORIDE 1 GM TABLET PO SCH ×2 (08:28→20:50)
[2023-01-12] MEDS: ASPIRIN 81 MG ECTAB PO SCH (08:28)
[2023-01-12] MEDS: APIXABAN 5 MG TABLET PO SCH ×2 (08:29→20:52)
[2023-01-12] MEDS: OXcarbazepine 150 MG TABLET PO SCH ×2 (08:29→20:53)
[2023-01-12] MEDS: PANTOprazole 40 MG TAB PO SCH ×2 (08:29→20:50)
[2023-01-12] MEDS: EZETIMIBE 10 MG TAB PO SCH (08:29)
--- NOTE | 2023-01-12 10:58 | Nephrology Progress Note ---
Date of Service January 12, 2023 Assessment & Plan (1) Hyponatremia: Plan: presenting sodium 121 at 1430 on 01/05. up to 124 01/06 after essentially 600 mL net NS (had 1L NS, got 400 mL D5W w/ riders). pt w/ chronic hyponatremia usually from low solute diet presenting w/ diarrhea / volume depletion/low solute diet by hx. would expect uOsms w/ either vol depletion or SIADH to be significantly higher than she had on presentation however. 3rd admission in 2.5 mos with sodium issues, ambulatory issues including 2 falls. sNa 135 today, acceptable -goal sNa tomorrow AM is wnl as it was today -continue FR 1.5 L, toward which protein shakes don't count >no urea indicated -cont 1 gm bid salt tabs -daily lasix 20 mg -lisinopril, amlodipine, urea all on hold -no standing K supplements >>cautious trial of salt tabs underway given her hx of HTN edema (pt dislikes urea intensely and it's hard to get as OP and she has had ALBERTINA w/ lasix /dose is hard to titrate; bp has been if anything soft) cont 1 gm bid May be d/c soon but favor another day or so to titrate meds. Tentative neph d/c recs -salt tabs 1 gm bid -FR 1.5L and protein shakes don't count -lasix 20 mg daily -no lisinopril, amlodipine, or standing urea at d/c -d/c on mag supplements as currently ordered -needs to have a ONE WEEK supply of urea 15 gm bid on hand though will try to avoid using routinely; see case mgt discussion on this and on my note from yesterday's note; will need help from [facility] to order/ensure availability -will need very close f/u w/ [facility] given frequent hospital stays this summer -[facility] d/c appt [facility] preferred w/ me or my partners in 2-4 wks w/ bmp, magnesium, urine osms, serum osms, rd urine sodium a few days prior to appt; renal RN to order labs care coordinated w/ dr garzon (2) ALBERTINA (acute kidney injury): Plan: improving but not resolved after abrupt worsening of renal function on lasix, lisinopril >still work to do here. baseline is 1.0-1.1 creat -held ACEI -as above low dose lasix (3) Hypomagnesemia: Plan: presenting mag 1.0. on mag supplements bid > again wnl today (4) Hyperkalemia: Plan: K 6 9/4 am on supplements, lasix, lisinpril w/ worsening renal function >K and ACEI held; had aggressive course of lasix and veltassa >resolved Admission and Anticipated Discharge Date Admission Date: January 05, 2023 Subjective no interval events. some confusion from pt about moving to different room adn [place]; no n/v, no edema, no sob; does c/o some L leg pain Review of Systems Review of Systems: All systems reviewed & are unremarkable except as noted in Subjective Physical Exam Constitutional: well developed (sitting up in chair), well nourished, + frail appearing and cooperative Eyes: EOM intact bilaterally ENMT: Ears: no external ear abnormality Nose: no external nose abnormality Mouth: + dry oral mucous membranes Neck: no nuchal rigidity Respiratory: normal respiratory effort Auscultation: + diminished lung sounds Cardiovascular: Rate/Rhythm: regular rate and regular rhythm Extremities: + edema (trace) Gastrointestinal (Abdomen): Inspection/Auscultation: normal bowel sounds Percussion/Palpation: abdomen soft; abdomen nontender Musculoskeletal: Extremities: strength 5/5 throughout Skin: no rashes, warm and dry Results & Data Vital Signs (Past 12 Hours) Vital Signs Temp Pulse Pulse Resp BP Pulse Ox O2 Del Method 01/12/23 06:00 79 01/12/23 07:40 36.7 C 70 18 144/75 H 97 Room Air 01/12/23 02:26 36.5 C 80 18 138/63 97 Room Air 01/11/23 22:56 78 Laboratory Results 01/10/23 06:47 01/12/23 05:24
[2023-01-12] MEDS: FUROSEMIDE 20 MG TAB PO SCH (11:37)
[2023-01-12] MEDS: CHOLECALCIFEROL 5,000 UNITS 125 MCG TAB PO SCH (11:37)
--- NOTE | 2023-01-12 18:36 | Hospitalist Progress Note ---
Date of Service January 12, 2023 Assessment & Plan (1) SIADH (syndrome of inappropriate ADH production): (2) Hyponatremia: (3) Hypomagnesemia: (4) Coronary artery disease: (5) DMII (diabetes mellitus, type 2): (6) Gastroesophageal reflux disease: (7) Osteoarthritis: (8) Hyperlipidemia: (9) Hypothyroidism: (10) Chronic pain: (11) Diarrhea: Plan Patient is a 77 yr female who presents as recommended by her outpatient PCP for electrolyte imbalance on outpatient labs; hyponatremia with serum sodium 121, hypomagnesemia mag 1.0. Patient with diarrhea over the last 1 week and known history of SIADH with an inpatient hospitalization 10/21 to 10/11/2025 with hyponatremia. . On Eliquis for history of DVT. Hyponatremia: H/O SIADH Serum sodium of 121 on admission Monitor Sodium levels:139 today Continue salt tablets, fluid restriction, Lasix as per nephrology Appreciate nephrology input Held urea for now Needs follow-up with nephrology upon discharge Continue Lasix 20 mg daily Plan to discharge in next 24 to 48 hours ALBERTINA Hyperkalemia Lisinopril on hold Received Veltassa Hyperkalemia resolved Monitor renal function Appreciate nephrology input Avoid nephrotoxic agents as able Cr 1.2 today Hypomagnesemia: Continue on oral magnesium supplement Monitor Diarrhea: unclear etiology C. difficile and GI PCR negative. Fecal occult blood positive. Hemoglobin stable Started on Protonix twice daily. Patient is on Eliquis and aspirin. Fairly recent DVT on November 2022; GI consulted for persistence severe diarrhea and fecal occult positive. Advised to follow-up with GI upon discharge for possible EGD as outpatient Diarrhea resolved Chronic Anemia: Hemoglobin stable Continue to monitor. CAD: chronic stable s/p stent placement Continue aspirin, Lipitor, metoprolol History of DVT: Chronic stable Was at [facility] and initial DVT LLE while at rehab in November 2022 Continue Eliquis Diabetes mellitus type 2: Takes metformin; hold while inpatient 09/2022 A1c 5.9 Continue insulin while hospitalized Monitor Hypothyroidism: Last TSH 01/04 1.76 Continue levothyroxine Osteoarthritis: Chronic pain: as per records HLD: Continue Zetia, Lipitor DVT Px: Eliquis Code Status Full Code Disposition PT/OT: recommends return Home Home with HH as able Admission and Anticipated Discharge Date Admission Date: January 05, 2023 Subjective Patient is seen and examined at bedside Patient states feeling well today No new complaints Sodium, renal function stable Denies any chest pain, dyspnea, dizziness, nausea, vomiting, abdominal pain Review of Systems Review of Systems: All systems reviewed & are unremarkable except as noted in Subjective Physical Exam Physical Exam: Physical Exam: Vitals signs as noted above General Appearance:Moderately built and nourished, no apparent distress Head: normocephalic, Atraumatic Eyes: normal inspection, EOMI Neck: supple, Trachea midline Respiratory/Chest: Normal breath sounds, CTA, No accessory muscle use Cardiovascular: S1, S2, No murmur Abdomen/GI:Soft, Non tender, Bowel sounds present Extremities/Musculoskeletal:normal inspection, Trace pedal edema Neurologic/Psych:AAOX3, grossly no focal neurological deficits Skin: normal color, warm Results & Data Results & Data Vital Signs (Past 12 Hours) Vital Signs Temp Pulse Pulse Pulse Resp BP BP 01/12/23 14:00 79 01/12/23 14:39 36.6 C 81 18 133/74 01/12/23 12:30 72 01/12/23 11:54 36.5 C 106 H 16 134/74 01/12/23 07:40 36.7 C 70 18 144/75 H Pulse Ox O2 Del Method 01/12/23 14:00 01/12/23 14:39 99 Room Air 01/12/23 12:30 01/12/23 11:54 93 Room Air 01/12/23 07:40 97 Room Air Laboratory Results BMP 01/12/23 05:24 Sodium 139 Potassium 4.7 Chloride 112 H Carbon Dioxide 23 BUN 55 H Creatinine 1.20 Glucose 86 Calcium 9.1
[2023-01-12] MEDS: ATORVASTATIN 40 MG TAB PO SCH (20:49)
[2023-01-13] MEDS: LEVOTHYROXINE SODIUM 112 MCG TABLET PO SCH (06:10)
[2023-01-13] MEDS: TOPIRAMATE 100 MG TAB PO SCH ×2 (06:10→13:03)
[2023-01-13 06:38] LABS: BUN Creatinine Ratio 33.3 (10-20); Creatinine Clr Calc Pharmacy 37.5 ml/min; Est GFR (African American) 58.9 ml/min; Est GFR (Non-African American) 50.8 ml/min; Potassium 4.3 mmol/L (3.5-5.1)
[2023-01-13] MEDS: ASPIRIN 81 MG ECTAB PO SCH (09:18)
[2023-01-13] MEDS: EZETIMIBE 10 MG TAB PO SCH (09:18)
[2023-01-13] MEDS: APIXABAN 5 MG TABLET PO SCH (09:18)
[2023-01-13] MEDS: FUROSEMIDE 20 MG TAB PO SCH (09:19)
[2023-01-13] MEDS: METOPROLOL SUCC 25MG EXT REL TAB PO SCH (09:19)
[2023-01-13] MEDS: MAGNESIUM CHLORIDE W/CALCIUM 64MG DELAYED REL TAB PO SCH (09:19)
[2023-01-13] MEDS: SODIUM CHLORIDE 1 GM TABLET PO SCH (09:19)
[2023-01-13] MEDS: PANTOprazole 40 MG TAB PO SCH (09:20)
[2023-01-13] MEDS: OXcarbazepine 150 MG TABLET PO SCH (09:20)
[2023-01-13] MEDS: SACCHAROMYCES BOULARDII 250 MG CAP PO SCH (09:20)
[2023-01-13] MEDS: CHOLECALCIFEROL 5,000 UNITS 125 MCG TAB PO SCH (13:03)
--- NOTE | 2023-01-13 14:49 | Hospitalist Progress Note ---
Date of Service January 13, 2023 Assessment & Plan (1) SIADH (syndrome of inappropriate ADH production): (2) Hyponatremia: (3) Hypomagnesemia: (4) Coronary artery disease: (5) DMII (diabetes mellitus, type 2): (6) Gastroesophageal reflux disease: (7) Osteoarthritis: (8) Hyperlipidemia: (9) Hypothyroidism: (10) Chronic pain: (11) Diarrhea: Plan Patient is a 77 yr female who presents as recommended by her outpatient PCP for electrolyte imbalance on outpatient labs; hyponatremia with serum sodium 121, hypomagnesemia mag 1.0. Patient with diarrhea over the last 1 week and known history of SIADH with an inpatient hospitalization 10/21 to 10/11/2025 with hyponatremia. . On Eliquis for history of DVT. Hyponatremia: H/O SIADH Serum sodium of 121 on admission Monitor Sodium levels:139 today Continue salt tablets, fluid restriction, Lasix as per nephrology Appreciate nephrology input Held urea for now Needs follow-up with nephrology upon discharge Continue Lasix 20 mg daily Plan to discharge home today ALBERTINA Hyperkalemia Lisinopril on hold Received Veltassa Hyperkalemia resolved Monitor renal function Appreciate nephrology input Avoid nephrotoxic agents as able Cr 1.05 today Hypomagnesemia: Continue on oral magnesium supplement Monitor Diarrhea: unclear etiology C. difficile and GI PCR negative. Fecal occult blood positive. Hemoglobin stable Started on Protonix twice daily. Patient is on Eliquis and aspirin. Fairly recent DVT on November 2022; GI consulted for persistence severe diarrhea and fecal occult positive. Advised to follow-up with GI upon discharge for possible EGD as outpatient Diarrhea resolved Chronic Anemia: Hemoglobin stable Continue to monitor. CAD: chronic stable s/p stent placement Continue aspirin, Lipitor, metoprolol History of DVT: Chronic stable [facility] at [facility] and initial DVT LLE while at rehab in November 2022 Continue Eliquis Diabetes mellitus type 2: Takes metformin; hold while inpatient 09/2022 A1c 5.9 Continue insulin while hospitalized Monitor Hypothyroidism: Last TSH 01/04 1.76 Continue levothyroxine Osteoarthritis: Chronic pain: as per records HLD: Continue Zetia, Lipitor DVT Px: Eliquis Code Status Full Code Disposition PT/OT: recommends return Home Home with Admission and Anticipated Discharge Date Admission Date: January 05, 2023 Subjective Patient is seen and examined at bedside Prefers to be discharged home today No complaints Denies any chest pain, dyspnea, dizziness, nausea, vomiting, abdominal pain Review of Systems Review of Systems: All systems reviewed & are unremarkable except as noted in Subjective Physical Exam Physical Exam: Physical Exam: Vitals signs as noted above General Appearance:Moderately built and nourished, no apparent distress Head: normocephalic, Atraumatic Eyes: normal inspection, EOMI Neck: supple, Trachea midline Respiratory/Chest: Normal breath sounds, CTA, No accessory muscle use Cardiovascular: S1, S2, No murmur Abdomen/GI:Soft, Non tender, Bowel sounds present Extremities/Musculoskeletal:normal inspection, Trace pedal edema Neurologic/Psych:AAOX3, grossly no focal neurological deficits Skin: normal color, warm Results & Data Results & Data Vital Signs (Past 12 Hours) Vital Signs Temp Pulse Pulse Resp BP Pulse Ox O2 Del Method 01/13/23 11:41 36.5 C 91 H 20 146/70 H 99 Room Air 01/13/23 07:38 36.4 C L 78 20 151/71 H 98 Room Air 01/13/23 07:21 73 01/13/23 04:41 36.7 C 75 20 126/73 98 Room Air Laboratory Results [facility] 01/13/23 05:50 Sodium 141 Potassium 4.3 Chloride 113 H Carbon Dioxide 23 BUN 35 H D Creatinine 1.05 Glucose 85 Calcium 9.0
--- NOTE | 2023-01-13 15:04 | Discharge Summary ---
Date of Service January 13, 2023 Admission HPI Per Admitting Provider Ms. Bustillo is a 77-year-old female that presented to the emergency room as recommended by her PCP for electrolyte imbalance noted on outpatient labs drawn yesterday 01/04. Serum sodium 121, magnesium 1.3. Reports having diarrhea over the past 2 weeks; mostly watery but over the past few days has been noted to be darker in color. No emil red blood. Patient with known history of SIADH and recent inpatient hospitalization 10/21 to 10/30 with hyponatremia. Additional inpatient stay from 12/14 to 12/21 that included a fall. Stool studies obtained as outpatient 01/04 and negative for Cryptosporidium, Giardia and C. difficile. Past medical history significant for CAD status post stent, history of DVT on Eliquis, CVA, HTN, HLD, uol-[id number] diabetes mellitus, chronic hyponatremia, chronic anemia, osteoarthritis, and PVD. Follows with vascular surgery at [facility]. No leukocytosis, hemoglobin 9.8 down from 10.9 11/22/2022, sodium 121, magnesium 1.0, creatinine 1.24 (baseline 1.2-1.4), urine osmolality 274, urine sodium 60. We will repeat stool studies including C. difficile, placed on fluid restriction 1800 mils, check FOB see and anemia work-up, placed on probiotics and hold diuretics. Patient denies headache, dizziness, chest pain, palpitations, abdominal pain or tenderness, urinary changes, auditory or visual changes, peripheral neuropathy, recent falls or trauma since last admission. On examination AAOx4, in no apparent distress, lungs CTA, normal heart sounds S1-S2 without rub or murmur. Hypervolemic right lower extremity +2 pitting edema greater than left +1. Due to known history of DVT will obtain venous Doppler studies of right lower extremity. Patient will be admitted for further evaluation and management. Please see A/P for further details. Admission Exam Per Admitting Provider Neuro: AAOx4, PERRLA, no aphagia, memory changes, CNII-XII grossly intact HEENT: head normocephalic, moist mucus membranes CV: S1/S2, (-) M/G/R, (-) edema, cap refill < 3 seconds Resp: Lungs CTA in all borja. On RA GI: Abdomen S/NT/ND, Ax4 bowel sounds, (-) CVA tenderness Musculoskeletal: 5/5 B/L UE strength, 5/5 B/L LE strength. No gait disturbance Skin: (-) rashes , (-) erythema. Psych: euthymic mood Principal Diagnosis Hyponatremia Acute kidney injury Hyperkalemia Hypomagnesemia Discharge Data 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 HER COMMUNITY RELATIONS REP propoxyphene AdvReac Intermediate GI UPSET, Verified 10/20/22 23:42 "DISORIENTED" amoxicillin AdvReac Mild VOMITING, Verified 10/20/22 23:42 GI UPSET baclofen AdvReac Mild disoriented Verified 10/20/22 23:42 nausea capsaicin [Diclopak] AdvReac Mild disoriented Verified 10/20/22 23:42 nausea clavulanic acid AdvReac Mild VOMITING, Verified 10/20/22 23:42 GI UPSET diclofenac [Diclopak] AdvReac Mild disoriented Verified 10/20/22 23:42 nausea Diclopak AdvReac Mild disoriented Verified 06/22/16 00:52 nausea codeine AdvReac Unknown pruritis Verified 10/20/22 23:44 Consultations 01/05/23 16:21 ED Decision to Admit Stat 01/05/23 16:40 Consult Nephrology Routine 01/06/23 08:01 Consult Gastroenterology Routine Ordered Studies 01/05/23 17:13 US venous doppler LE RT Routine Laboratory Results WBC 3.51 K/ul (4.8-10.8) L 01/10/23 06:47 RBC 2.83 M/uL (4.20-5.40) L 01/10/23 06:47 Hgb 8.8 g/dl (12.0-16.0) L 01/10/23 06:47 Hct 26.4 % (37.0-47.0) L 01/10/23 06:47 MCV 93.3 fL (80.0-100.0) 01/10/23 06:47 MCH 31.1 pg (25.0-34.0) 01/10/23 06:47 MCHC 33.3 g/dL (32.0-36.0) 01/10/23 06:47 RDW Std Deviation 45.5 fL (36.4-46.3) 01/10/23 06:47 RDW Coeff of Mine 13.2 % (11.5-14.5) 01/10/23 06:47 Plt Count 226 K/uL (130-400) 01/10/23 06:47 MPV 10.5 fL (9.4-12.4) 01/10/23 06:47 Immature Gran % (Auto) 0.6 % 01/10/23 06:47 Neut % (Auto) 42.4 % 01/10/23 06:47 Lymph % (Auto) 43.3 % 01/10/23 06:47 Jackson % (Auto) 13.1 % 01/10/23 06:47 Eos % (Auto) 0.0 % 01/10/23 06:47 Baso % (Auto) 0.6 % 01/10/23 06:47 Neut # (Auto) 1.49 K/uL (1.40-6.50) 01/10/23 06:47 Lymph # (Auto) 1.52 K/uL (1.20-3.40) 01/10/23 06:47 Jackson # (Auto) 0.46 K/uL (0.11-0.59) 01/10/23 06:47 Eos # (Auto) 0.00 K/uL (0.00-0.50) 01/10/23 06:47 Baso # (Auto) 0.02 K/uL (0.00-0.20) 01/10/23 06:47 Immature Gran # (Auto) 0.02 K/uL (0.01-0.20) 01/10/23 06:47 Sodium 141 mmol/L (136-145) 01/13/23 05:50 Potassium 4.3 mmol/L (3.5-5.1) 01/13/23 05:50 Chloride 113 mmol/L (98-107) H 01/13/23 05:50 Carbon Dioxide 23 mmol/L (21-32) 01/13/23 05:50 Anion Gap 5 (3-11) 01/13/23 05:50 BUN 35 mg/dl (6-23) H D 01/13/23 05:50 Creatinine 1.05 mg/dl (0.6-1.2) 01/13/23 05:50 Est Cr Clr Drug Dosing 37.5 ml/min 01/13/23 05:50 Est GFR ( Amer) 58.9 ml/min 01/13/23 05:50 Est GFR (Non-Af Amer) 50.8 ml/min 01/13/23 05:50 BUN/Creatinine Ratio 33.3 (10-20) H 01/13/23 05:50 Glucose 85 mg/dl (70-99(Fasting)) 01/13/23 05:50 POC Glucose 93 mg/dl (70-99) 01/06/23 11:31 Estimat Average Glucose 103 mg/dl 01/06/23 06:28 Hemoglobin A1c 5.2 % (4.5-5.6) 01/06/23 06:28 Osmolality 264 mOsm/kg (280-300) L 01/06/23 18:01 Calcium 9.0 mg/dl (8.6-10.3) 01/13/23 05:50 Phosphorus 2.8 mg/dl (2.5-4.9) 01/06/23 06:28 Magnesium 1.7 mg/dl (1.7-2.4) 01/12/23 05:24 Total Bilirubin 0.4 mg/dl (0.2-1.0) 01/06/23 06:35 AST 37 U/L (13-39) 01/06/23 06:35 ALT 28 U/L (7-52) 01/06/23 06:35 Alkaline Phosphatase 67 U/L (34-104) 01/06/23 06:35 Total Creatine Kinase 158 U/L (26-192) 01/05/23 14:35 Total Protein 5.2 gm/dl (6.0-8.3) L 01/06/23 06:35 Albumin 3.4 gm/dl (3.4-5.0) 01/06/23 06:35 Globulin 1.8 gm/dl (2.5-4.0) L 01/06/23 06:35 Albumin/Globulin Ratio 1.9 (0.9-2) 01/06/23 06:35 Lipase 46 U/L (11-82) 01/05/23 14:35 Urine Color Yellow 01/05/23 16:04 Urine Appearance Clear (Clear) 01/05/23 16:04 Urine pH 6.5 (4.5-7.5) 01/05/23 16:04 Ur Specific Mckenna 1.009 (1.000-1.030) 01/05/23 16:04 Urine Protein Negative (Negative) 01/05/23 16:04 Urine Glucose (UA) Negative (Negative) 01/05/23 16:04 Urine Ketones Negative (Negative) 01/05/23 16:04 Urine Blood Trace (Negative) H 01/05/23 16:04 Urine Nitrite Negative (Negative) 01/05/23 16:04 Urine Bilirubin Negative (Negative) 01/05/23 16:04 Urine Urobilinogen Negative (Negative) 01/05/23 16:04 Ur Leukocyte Esterase Trace (Negative) H 01/05/23 16:04 Urine WBC (Auto) 1-5 /hpf (0-5) 01/05/23 16:04 Urine RBC (Auto) 0-4 /hpf (0-4) 01/05/23 16:04 U Hyaline Cast (Auto) 0 /lpf (0-5) 01/05/23 16:04 U Epithel Cells (Auto) >30 /lpf (0-5) H 01/05/23 16:04 Urine Bacteria (Auto) 1+ (Negative) H 01/05/23 16:04 Calcium Oxalate Crystal Present (None Prsent) A 01/05/23 16:04 Urine Yeast Not Reportable 01/05/23 16:04 Urine Osmolality 274 mOsm/kg (500-800) L 01/05/23 16:07 Ur Random Sodium 60 mmol/L 01/05/23 16:07 Stool Occult Bld Scrn Positive (Negative) A 01/05/23 19:36 Stl C. cayetanensis PCR Not Detected (NotDetected) 01/05/23 19:36 Stool Rotavirus A PCR Not Detected (NotDetected) 01/05/23 19:36 Stl Adenov F 40/41 PCR Not Detected (NotDetected) 01/05/23 19:36 Stool Astrovirus (PCR) Not Detected (NotDetected) 01/05/23 19:36 Stool Campylobacter PCR Not Detected (NotDetected) 01/05/23 19:36 Stl C. diff Tox B Gene Negative Cdiff Gene (Neg) 01/05/23 19:36 Stool Cryptosporidium PCR Not Detected (NotDetected) 01/05/23 19:36 Stl E.coli Shiga Tox PCR Not Detected (NotDetected) 01/05/23 19:36 Stl Enterotoxigenic E PCR Not Detected (NotDetected) 01/05/23 19:36 Stool EPEC (PCR) Not Detected (NotDetected) 01/05/23 19:36 Stool EAEC (PCR) Not Detected (NotDetected) 01/05/23 19:36 Stl E. histolytica PCR Not Detected (NotDetected) 01/05/23 19:36 Stool Giardia Lamblia PCR Not Detected (NotDetected) 01/05/23 19:36 Stool Salmonella PCR Not Detected (NotDetected) 01/05/23 19:36 Stool Sapovirus (PCR) Not Detected (NotDetected) 01/05/23 19:36 Stl P. shigelloides PCR Not Detected (NotDetected) 01/05/23 19:36 Stl Shigella/EIEC PCR Not Detected (NotDetected) 01/05/23 19:36 St Y.enterocolitica PCR Not Detected (NotDetected) 01/05/23 19:36 Stool Vibrio (PCR) Not Detected (NotDetected) 01/05/23 19:36 Stl Vibrio cholerae PCR Not Detected (NotDetected) 01/05/23 19:36 Stl Norovirus GI/GII PCR Not Detected (NotDetected) 01/05/23 19:36 Impressions Venous Doppler Study 01/05/23 17:13 ULTRASOUND RIGHT LOWER EXTREMITY VENOUS CLINICAL HISTORY: Right lower extremity edema. Reported history of DVT. COMPARISON STUDY: No priors. TECHNIQUE: Real-time, grayscale, and color Doppler sonography of the deep veins of the right lower extremity was performed from the inguinal crease to the calf. Compression and augmentation were utilized. FINDINGS: There is no sonographic evidence of deep venous thrombosis identified in the right lower extremity. The common femoral, superficial femoral, and popliteal veins are patent and normally compressible. The greater saphenous vein and the profunda femoris vein at the junction with the common femoral vein are clear. The visualized calf veins are patent. IMPRESSION: There is no sonographic evidence of deep venous thrombosis identified in the right lower extremity. ACT 112: Negative or not required by law. Electronically signed by: Manoj Burns M.D. 01/05/2023 11:04 PM Hospital Course (1) SIADH (syndrome of inappropriate ADH production): (2) Hyponatremia: (3) Hypomagnesemia: (4) Coronary artery disease: (5) DMII (diabetes mellitus, type 2): (6) Gastroesophageal reflux disease: (7) Osteoarthritis: (8) Hyperlipidemia: (9) Hypothyroidism: (10) Chronic pain: (11) Diarrhea: Plan Patient is a 77 yr female who presents as recommended by her outpatient PCP for electrolyte imbalance on outpatient labs; hyponatremia with serum sodium 121, hypomagnesemia mag 1.0. Patient with diarrhea over the last 1 week and known history of SIADH with an inpatient hospitalization 10/21 to 10/11/2025 with hyponatremia. . On Eliquis for history of DVT. Hyponatremia: H/O SIADH Serum sodium of 121 on admission Monitor Sodium levels:139 today Continue salt tablets, fluid restriction, Lasix as per nephrology Appreciate nephrology input Held urea for now Needs follow-up with nephrology upon discharge Continue Lasix 20 mg daily Plan to discharge home today ALBERTINA Hyperkalemia Lisinopril on hold Received Veltassa Hyperkalemia resolved Monitor renal function Appreciate nephrology input Avoid nephrotoxic agents as able Cr 1.05 today Hypomagnesemia: Continue on oral magnesium supplement Monitor Diarrhea: unclear etiology C. difficile and GI PCR negative. Fecal occult blood positive. Hemoglobin stable Started on Protonix twice daily. Patient is on Eliquis and aspirin. Fairly recent DVT on November 2022; GI consulted for persistence severe diarrhea and fecal occult positive. Advised to follow-up with GI upon discharge for possible EGD as outpatient Diarrhea resolved Chronic Anemia: Hemoglobin stable Continue to monitor. CAD: chronic stable s/p stent placement Continue aspirin, Lipitor, metoprolol History of DVT: Chronic stable [facility] at [facility] and initial DVT LLE while at rehab in November 2022 Continue Eliquis Diabetes mellitus type 2: Takes metformin; hold while inpatient 09/2022 A1c 5.9 Continue insulin while hospitalized Monitor Hypothyroidism: Last TSH 01/04 1.76 Continue levothyroxine Osteoarthritis: Chronic pain: as per records HLD: Continue Zetia, Lipitor DVT Px: Eliquis Code Status Full Code Disposition PT/OT: recommends return Home Home with HH Total Time Total Time Spent Total Time Spent (In Minutes): 65 minutes Discharge Plan Discharge Items Patient Disposition: Home - Home Health Services Reason For Visit: HYPONATREMIA Discharge Diagnosis: Hyponatremia Acute kidney injury Hyperkalemia Hypomagnesemia Activity: Per Instructions section Exercise/Sports: Gradually increase as tolerated Non-emergency contact: Primary Care Provider and Photoengraving Machine Operator/Tender Call non-emergency contact if: you have any medication questions, your symptoms worsen, your pain is concerning for you and you have a fever Follow-up/Referrals: Dr Chucky Lea [Other] (Date & Time 02/07/2023 9:10 AM Provider Chucky Lea MD Department Vascular Surgery, [facility] ) Naty Fang, [Primary Care Provider] - (Please order the "UreaAide Premium Sparkling Mcdonough Urea Powder packets". It is recommended that you take 15 grams, which is one packet, twice per day. You should have a 2 week supply on hand. [employer] sells this in a quantity of 15 packets for $53.99, which would last you 7 days. [employer] prices can change without notice, so the israel may be a little different when you order this. Date & Time 01/16/2023 11:00 AM Provider BECK Lindsay Department Family Practice [facility] ) Diet: Regular Fluids: 1500ml (6 cups) Addtl Attending Provider Instructions: Follow-up with your primary care physician on 01/16/2023 11:00 AM Follow-up with your automotive lot attendant in 2 weeks with blood test (Basic Metabolic Panel, magnesium levels, urine osmolality, serum osmolality, urine sodium) -- Continue fluid restriction 1.5 L/day as recommended by your automotive lot attendant. --Your lisinopril, amlodipine was discontinued as recommended by your automotive lot attendant. --Your Lasix is decreased to 20 mg daily. Seek immediate medical attention if your symptoms reoccur or worsen Please take all medications as instructed on discharge list below. Please call if you have any questions or problems. You can reach a [facility] hospitalist on duty at [facility] 24 hours a day by calling [phone] Pending Studies at Discharge: No Stand-Alone Forms: My [facility], Smoking Cessation Medications and DC Order Prescriptions: New Mag 64 64 mg Tablet,Delayed Release (Dr/Ec) 128 mg PO BID 30 Days Qty: 120 0RF Continued metformin 500 mg Tablet 500 mg PO QAM ezetimibe 10 mg Tablet 10 mg PO QAM omeprazole 40 mg Capsule,Delayed Release(Dr/Ec) 40 mg PO DAILYBB Rx Instructions: 1 hour before breakfast atorvastatin 80 mg Tablet 80 mg PO PM aspirin 81 mg Tablet,Delayed Release (Dr/Ec) 81 mg PO PM metoprolol succinate 25 mg Tablet Extended Release 24 Hr 25 mg PO QAM topiramate 100 mg Tablet See Rx Instructions .ROUTE .COMPLEX Rx Instructions: Take 100mg by mouth in the morning, 100mg by mouth at noon and 200mg by mouth at bedtime levothyroxine 112 mcg Tablet 112 mcg PO DAILYBB icosapent ethyl 1 gram Capsule 2 g PO BIDM pyridoxine (vitamin B6) [Vitamin B-6] 250 mg Tablet 250 mg PO .NOON oxcarbazepine [Trileptal] 150 mg Tablet See Rx Instructions .ROUTE .COMPLEX Rx Instructions: Take 150mg by mouth with 300mg tablet to equal 450mg twice daily oxcarbazepine [Trileptal] 300 mg Tablet See Rx Instructions .ROUTE .COMPLEX Rx Instructions: Take 300mg by mouth with 150mg tablet to equal 450mg twice daily docusate sodium [Colace] 100 mg Capsule 100 mg PO DAILY cholecalciferol (vitamin D3) [Vitamin D3] 125 mcg (5,000 unit) Tablet 125 mcg PO .NOON Eliquis 5 mg tablet 5 mg PO BID Changed furosemide 20 mg tablet 20 mg PO DAILY Qty: 30 0RF Discontinued amlodipine 2.5 mg Tablet 2.5 mg PO PM magnesium oxide 400 mg magnesium Tablet 400 mg PO BID lisinopril 20 mg Tablet 20 mg PO QAM Discharge Orders: Discharge Order (Routine); Ordered 01/13/23 Ordered By: Sidney Rangel Admission Data Admit Date/Time: 01/05/23 16:25 Attending Provider: Sidney Rangel Admit Provider: Luis Riley Primary Care Provider: Naty Fang Other Providers: Herve Barroso ; Luis Riley ; Zachary Francis ; Rik Malloy
== END 2023-01-13 16:49 | disposition home health service (06) | DRG 644 ==
LOC: ED 14:15 → SUATTDRO 16:25 → EDINP 16:25 → 2S 19:16 → 2N 01-11 21:27

== ENCOUNTER 2023-06-06 02:34 | Inpatient (IN) ==
--- NOTE | 2023-06-06 04:01 | Emergency Department Note ---
Impression & Plan Closed fracture of neck of left femur ED Provider Note HISTORY OF PRESENT ILLNESS: Patient is a 77-year-old female presenting with left hip pain and left-sided pain. Patient reports that she fell 3 days ago and had negative imaging done. However, she has had progressively worsening pain in her left hip. Reports that she woke up tonight and had a "excruciating" pain in her left hip and was unable to ambulate. She denies any recent falls in the last few days since being discharged. Denies any chest pain or shortness of breath. She reports "my whole left side does not feel good, but my left hip is the worst." Denies any fevers. Denies any dysuria or hematuria. ROS: as above PHYSICAL EXAM: Constitutional: Patient appears in no acute distress. HENT: Head: Normocephalic and atraumatic. Eyes: EOMI, PERRL Mouth/Throat: Mucous membranes moist. Neck: Trachea midline. Neck supple. Cardiovascular: RRR, No murmurs, rubs or gallops. Intact distal pulses. Pulmonary/Chest: No respiratory distress. Breath sounds clear and equal bilaterally. No wheezes or rales Abdominal: Abdomen soft, no tenderness, rebound or guarding. Musculoskeletal: Patient has diffuse tenderness to palpation of the left hip. She is unable to range the hip secondary to pain. Skin: Warm and dry. No rash, erythema, pallor or cyanosis Psychiatric: Appropriate mood and affect for situation. Neurological: Alert and keenly responsive. CN II-XII grossly intact, moving all extremities equally and fully. MDM: - Vitals signs showed hypertension. - History obtained via patient. Patient presents with left hip pain and left- sided pain. Patient reports she fell 3 days ago and had negative imaging done at that time. However, she has had progressively worsening pain in her left hip. Reports that tonight she woke up with excruciating pain in her left hip and was unable to ambulate. Denies any recent falls in the last 48 hours. Denies any chest pain or shortness of breath. She reports that her whole left side hurts but her hip is the worst. Denies any fevers. Denies any dysuria or hematuria. - Chronic conditions affecting care: SIADH; DM-2; hypothyroidism; HLD; GERD; CAD; HTN - Differential diagnoses include, but are not limited to: pelvic fracture; femoral fracture; muscle spasm - Order placed for continuous cardiac monitoring. At this time, monitor showed rate of 78 bpm with normal sinus rhythm, per my interpretation. - External medical records reviewed. EMS run sheet was reviewed. Patient was hypertensive and route. - EKG interpreted by myself showed normal sinus rhythm. Rate 79 bpm. QT 360. No acute ischemic changes. - Laboratory workup interpreted by myself showed normal WBC; stable electrolytes - CT pelvis wo contrast showed a left femoral neck fracture. - Patient given 50 mcg IV fentanyl - Discussion was had with resident care coordinator about patient's case and need for admission - Hospitalist, Dr. Canela, consulted for admission - [facility] ASSESSMENT AND PLAN: Diagnosis: left femoral neck fracture Plan: admit Past Med/Surg History Medical History Diarrhea Hypomagnesemia SIADH (syndrome of inappropriate ADH production) Chronic pain DMII (diabetes mellitus, type 2) Hyponatremia Hypothyroidism (11/22/10) Hyperlipidemia (11/22/10) Gastroesophageal reflux disease (11/22/10) Coronary artery disease (11/22/10) Carotid artery stenosis (11/22/10) Benign hypertension (11/22/10) Acute non-ST segment elevation myocardial infarction (11/22/10) Spinal stenosis in cervical region Migraine History of adenomatous polyp of colon Osteoarthritis Cerebrovascular disease "old lacunar strokes on imaging" Surgical History H/O endarterectomy Status post coronary artery stent placement Status post hysterectomy Social History Smoking Status: Former smoker Tobacco Type: Cigarettes Second Hand Exposure: No; Do You Dip or Chew Tobacco: No; Hx Alcohol Use: No Hx Substance Use: No Preferred Language: Togolese Communication Ability: Effective Visual Impairment: Partially Limited Hearing Ability: Normal Roll Coverer Required: No Beliefs That Will Affect Care: None Current Living Situation: Alone Current Living Situation Comment: home alone in apt building Feels Safe at Home: Yes Diet: regular caffeine: Yes Assistive Devices: Cane and Walker Allergies Allergies Allergy/AdvReac Type Severity Reaction Status Date / Time chlorhexidine Allergy Intermediate SEVERE RED Verified 05/31/23 11:22 AND BURNING SKIN amitriptyline Allergy Unknown PT UNSURE Verified 05/31/23 11:22 OF RXN dipyridamole Allergy Unknown PT DOESN'T Verified 05/31/23 11:22 KNOW WHAT HAPPENED NSAIDS (Non-Steroidal AdvReac Intermediate NOT TO Verified 05/31/23 11:22 Anti-Inflamma TAKE PER HER [employer] propoxyphene AdvReac Intermediate GI UPSET, Verified 05/31/23 11:22 "DISORIENTED" amoxicillin AdvReac Mild VOMITING, Verified 05/31/23 11:22 GI UPSET baclofen AdvReac Mild disoriented Verified 05/31/23 11:22 nausea capsaicin [D[place]lop[place]] AdvReac Mild disoriented Verified 05/31/23 11:22 nausea clavulanic acid AdvReac Mild VOMITING, Verified 05/31/23 11:22 GI UPSET diclofenac [Diclopak] AdvReac Mild disoriented Verified 05/31/23 11:22 nausea D[place]lop[place] AdvReac Mild disoriented Verified 06/22/16 00:52 nausea codeine AdvReac Unknown pruritis Verified 05/31/23 11:22 Home Meds Home Medications Medication Instructions Recorded Confirmed aspirin 81 mg tablet,delayed 81 mg PO PM 10/20/22 05/31/23 release atorvastatin 80 mg tablet 80 mg PO PM 10/20/22 05/31/23 ezetimibe 10 mg tablet 10 mg PO QAM 10/20/22 05/31/23 icosapent ethyl 1 gram capsule 2 g PO BIDM 10/20/22 05/31/23 levothyroxine 112 mcg tablet 112 mcg PO DAILYBB 10/20/22 05/31/23 metoprolol succinate 25 mg 25 mg PO QAM 10/20/22 05/31/23 tablet,extended release 24 hr omeprazole 40 mg capsule,delayed 40 mg PO DAILYBB 10/20/22 05/31/23 release topiramate 100 mg tablet See Rx Instructions .Route .COMPLEX 10/20/22 05/31/23 pyridoxine (vitamin B6) 250 mg 250 mg PO .NOON 10/21/22 05/31/23 tablet (Vitamin B-6) apixaban 5 mg tablet (Eliquis) 5 mg PO BID 12/14/22 05/31/23 cholecalciferol (vitamin D3) 125 125 mcg PO .NOON 12/14/22 05/31/23 mcg (5,000 unit) tablet (Vitamin D3) docusate sodium 100 mg capsule 100 mg PO DAILY 12/14/22 05/31/23 (Colace) oxcarbazepine 150 mg tablet See Rx Instructions .Route .COMPLEX 12/14/22 05/31/23 (Trileptal) oxcarbazepine 300 mg tablet See Rx Instructions .Route .COMPLEX 12/14/22 05/31/23 (Trileptal) folic acid 1 mg tablet 1 mg PO DAILY 04/04/23 05/31/23 furosemide 20 mg tablet 30 mg PO DAILY 04/04/23 05/31/23 gabapentin 100 mg capsule 100 mg PO TID 04/04/23 05/31/23 magnesium chloride 64 mg 128 mg PO BID 04/04/23 05/31/23 (magnesium chloride) tablet,delayed release mecobalamin (vitamin B12) 1,000 1,000 mcg sublingual DAILY 04/04/23 05/31/23 mcg disintegrating tablet,sublingual pentoxifylline 400 mg 400 mg PO BID 04/04/23 05/31/23 tablet,extended release Results & Data (ED) Vital Signs Vital Signs - 24 hr 06/06/23 03:55 06/06/23 05:07 Pulse Rate 78 Pulse Rate [Finger] 83 Respiratory Rate 19 Blood Pressure [Right Arm] 173/117 H Blood Pressure Mean [Right Arm] 135 Pulse Oximetry 98 Laboratory Data 06/06/23 03:24 06/06/23 03:24 Lab Results 06/06/23 Range/Units 03:24 WBC 8.83 (4.8-10.8) K/ul RBC 3.65 L (4.20-5.40) M/uL Hgb 11.0 L (12.0-16.0) g/dl Hct 33.0 L (37.0-47.0) % MCV 90.4 (80.0-100.0) fL MCH 30.1 (25.0-34.0) pg MCHC 33.3 (32.0-36.0) g/dL RDW Std Deviation 44.2 (36.4-46.3) fL RDW Coeff of Mine 13.4 (11.5-14.5) % Plt Count 220 (130-400) K/uL MPV 11.2 (9.4-12.4) fL Sodium 134 L (136-145) mmol/L Potassium 3.8 (3.5-5.1) mmol/L Chloride 104 (98-107) mmol/L Carbon Dioxide 23 (21-32) mmol/L Anion Gap 7 (3-11) BUN 23 (6-23) mg/dl Creatinine 1.12 (0.6-1.2) mg/dl Est Cr Clr Drug Dosing Not Reportable Est GFR ( Amer) 54.5 ml/min Est GFR (Non-Af Amer) 47.0 ml/min BUN/Creatinine Ratio 20.5 H (10-20) Glucose 70 (70-99(Fasting)) mg/dl Calcium 9.4 (8.6-10.3) mg/dl Troponin I High Sens 10.9 (0-14) pg/ml Imaging Data Radiologist's Impression: Pelvis CT 06/06/23 04:11 CR Exam(s): CT PELVIS Without Contrast EXAM: CT Pelvis Without Intravenous Contrast CLINICAL HISTORY: Reason for exam: FELL PAIN AT LEFT SIDE OF PELVIS EVAL FOR FX.fell a few days ago, pain at left side most TECHNIQUE: Axial computed tomography images of the pelvis without intravenous contrast. CTDI is 30.64 mGy and DLP is 916.85 mGy-cm. Automated exposure control was utilized for the study. A dose lowering technique was utilized adhering to the principles of ALARA. COMPARISON: No relevant prior studies available. FINDINGS: Bowel: Colonic diverticulosis. No obstruction. No mucosal thickening. Appendix: No findings to suggest acute appendicitis. Intraperitoneal space: Unremarkable. No free air. No significant fluid collection. Bladder: Unremarkable. No stones. Reproductive: Unremarkable as visualized. Bones/joints: Acute impacted left femoral neck fracture with mild varus angulation. Consider orthopedics consultation. Chronic fracture of the right sacral ala extending to the right SI joint. Partially visualized fusion changes within the lumbar spine extending to S1. No dislocation. Soft tissues: Unremarkable. Vasculature: Partially visualized left SFA bypass. Atherosclerotic disease. Lymph nodes: Unremarkable. No enlarged lymph nodes. IMPRESSION: 1. Acute impacted left femoral neck fracture with mild varus angulation. Consider orthopedics consultation. 2. Chronic fracture of the right sacral ala extending to the right SI joint. 3. Colonic diverticulosis. Communications: Verify Receipt Electronically signed by: Stoney Trinidad MD 06/06/23 05:26 AM Discharge Plan Visit Data Chief Complaint: Hip Pain Stated Complaint: HIP PAIN ED Provider: [facility] Discharge Problem: Closed fracture of neck of left femur Forms Stand Alone Forms: [facility] Prescriptions Prescriptions: No Action furosemide 20 mg tablet 30 mg PO DAILY gabapentin 100 mg capsule 100 mg PO TID folic acid 1 mg tablet 1 mg PO DAILY mecobalamin (vitamin B12) 1,000 mcg tablet,disintegrating 1,000 mcg sublingual DAILY Rx Instructions: place tablet under tongue and allow to dissolve for at least30 secs before swallowing magnesium chloride 64 mg tablet,delayed release (DR/EC) 128 mg PO BID pentoxifylline 400 mg tablet extended release 400 mg PO BID Rx Instructions: must administer with a meal/food ezetimibe 10 mg Tablet 10 mg PO QAM omeprazole 40 mg Capsule,Delayed Release(Dr/Ec) 40 mg PO DAILYBB Rx Instructions: 1 hour before breakfast atorvastatin 80 mg Tablet 80 mg PO PM aspirin 81 mg Tablet,Delayed Release (Dr/Ec) 81 mg PO PM metoprolol succinate 25 mg Tablet Extended Release 24 Hr 25 mg PO QAM topiramate 100 mg Tablet See Rx Instructions .ROUTE .COMPLEX Rx Instructions: Take 100mg by mouth in the morning, 100mg by mouth at noon and 200mg by mouth at bedtime levothyroxine 112 mcg Tablet 112 mcg PO DAILYBB icosapent ethyl 1 gram Capsule 2 g PO BIDM pyridoxine (vitamin B6) [Vitamin B-6] 250 mg Tablet 250 mg PO .NOON oxcarbazepine [Trileptal] 150 mg Tablet See Rx Instructions .ROUTE .COMPLEX Rx Instructions: Take 150mg by mouth with 300mg tablet to equal 450mg twice daily oxcarbazepine [Trileptal] 300 mg Tablet See Rx Instructions .ROUTE .COMPLEX Rx Instructions: Take 300mg by mouth with 150mg tablet to equal 450mg twice daily docusate sodium [Colace] 100 mg Capsule 100 mg PO DAILY cholecalciferol (vitamin D3) [Vitamin D3] 125 mcg (5,000 unit) Tablet 125 mcg PO .NOON Eliquis 5 mg tablet 5 mg PO BID Referrals Referrals: Naty Fang DO [Primary Care Provider] -
[2023-06-06 04:17] LABS: Mean Corpuscular Hemoglobin 30.1 pg (25.0-34.0); Mean Corpuscular Hgb Conc 33.3 g/dL (32.0-36.0); Mean Corpuscular Volume 90.4 fL (80.0-100.0); Mean Platelet Volume 11.2 fL (9.4-12.4); Platelet Count 220 K/uL (130-400); RDW Coefficient of Variation 13.4 % (11.5-14.5); RDW Standard Deviation 44.2 fL (36.4-46.3); Red Blood Count 3.65 M/uL (4.20-5.40); White Blood Count 8.83 K/ul (4.8-10.8)
[2023-06-06 04:37] LABS: Anion Gap 7 (3-11); BUN Creatinine Ratio 20.5 (10-20); Blood Urea Nitrogen 23 mg/dl (6-23); Calcium 9.4 mg/dl (8.6-10.3); Carbon Dioxide 23 mmol/L (21-32); Chloride 104 mmol/L (98-107); Est GFR (African American) 54.5 ml/min; Glucose 70 mg/dl (70-99(Fasting)); Potassium 3.8 mmol/L (3.5-5.1); Sodium 134 mmol/L (136-145)
[2023-06-06 04:45] LABS: Troponin I High Sensitivity 10.9 pg/ml (0-14)
--- NOTE | 2023-06-06 05:27 | CT Scan Report ---
Exam(s): CT PELVIS Without Contrast EXAM: CT Pelvis Without Intravenous Contrast CLINICAL HISTORY: Reason for exam: FELL PAIN AT LEFT SIDE OF PELVIS EVAL FOR FX.fell a few days ago, pain at left side most TECHNIQUE: Axial computed tomography images of the pelvis without intravenous contrast. CTDI is 30.64 mGy and DLP is 916.85 mGy-cm. Automated exposure control was utilized for the study. A dose lowering technique was utilized adhering to the principles of ALARA. COMPARISON: No relevant prior studies available. FINDINGS: Bowel: Colonic diverticulosis. No obstruction. No mucosal thickening. Appendix: No findings to suggest acute appendicitis. Intraperitoneal space: Unremarkable. No free air. No significant fluid collection. Bladder: Unremarkable. No stones. Reproductive: Unremarkable as visualized. Bones/joints: Acute impacted left femoral neck fracture with mild varus angulation. Consider orthopedics consultation. Chronic fracture of the right sacral ala extending to the right SI joint. Partially visualized fusion changes within the lumbar spine extending to S1. No dislocation. Soft tissues: Unremarkable. Vasculature: Partially visualized left SFA bypass. Atherosclerotic disease. Lymph nodes: Unremarkable. No enlarged lymph nodes. IMPRESSION: 1. Acute impacted left femoral neck fracture with mild varus angulation. Consider orthopedics consultation. 2. Chronic fracture of the right sacral ala extending to the right SI joint. 3. Colonic diverticulosis. Communications: Verify Receipt Electronically signed by: Stoney Trinidad MD 06/06/23 05:26 AM
[2023-06-06] MEDS: fentaNYL citrate PF 100 MCG/2 ML VIAL IV STA (05:37)
--- NOTE | 2023-06-06 06:15 | History & Physical Report ---
Date of Service June 06, 2023 Assessment & Plan (1) Closed fracture of neck of left femur: Plan: Secondary to fall Hypertensive urgency secondary to above CAD status post stent, stable except for elevated BP concerns on outpatient cardiology visit last month, no inducible ischemia on nuclear stress test February 2023 History PVD status post surgery history of CVA history of DVT on Eliquis hyperlipidemia on statin Rx DM2 diet-controlled, well-controlled as of recent hemoglobin A1c of 5.06 January 2023 Chronic hyponatremia secondary to SIADH, nephrology recommends 1.5 L fluid restriction at home hypothyroidism, euthyroid as of recent outpatient TSH chronic anemia, hemoglobin at baseline mood disorder, stable past tobacco abuse Medical telemetry due to hypertensive urgency Analgesia, anxiolytic as needed Titrate home BP meds Orthopedics consult Re: Left femoral fracture Hold Eliquis for now in anticipation of procedure. Last dose was 8 PM last night. IV heparin while Eliquis on hold Recommend holding IV heparin 6 hours before surgery. Acceptable risk for cardiac complications resulting from prospective procedure Revised Cardiac Risk Index (RCRI): 1. High-risk type of surgery (examples include vascular and any open intrape ritoneal or intrathoracic procedures). No 2. History of ischemic heart disease (history of myocardial infarction or positive exercise test, current compliant of chest pain considered to be secondary to myocardial ischemia, use of nitrate therapy, or ECG with pathological Q waves; do not count prior coronary revascularization procedure unless one of the other criteria for ischemic heart disease is present). Yes 3. History of heart failure. No 4. History of cerebrovascular disease. Yes 5. Diabetes mellitus requiring treatment with insulin. No 6. Preoperative serum creatinine >2.0. No Pt has revised cardiac index score of 2 points. (Class III Risk.) 10.1 % 30-day risk of , MO, or cardiac arrest. Moderate risk for cardiac complications if surgery recommended by Orthopedics and patient/family agreeable to attendant procedural benefits and risks.. ISS BG goal 1 10-1 40, carb count coverage DVT prophylaxis. Low-dose IV heparin Full code Case discussed with Dr. Simmons of [facility]. No surgery today due to Eliquis intake from last night. Continue to hold Eliquis, okay with low-dose IV heparin for now. Patient requests for daughter to be given periodic updates regarding care. Miss Krystin Trujillo, contact #[phone]. Text document was generated using [employer] voice recognition software. It may contain grammatical or spelling errors. Kindly contact undersigned for clarification of any documentation item in question. History of Present Illness Chief Complaint: Worsening left hip pain Primary Care Provider: Naty Fang, History obtained from patient, family, and records. Medical history significant for CAD status post stent, PVD status post surgery, history of CVA, hypertension, hyperlipidemia, history of DVT on Eliquis, DM2 diet-controlled, hypothyroidism, SIADH, chronic hyponatremia, chronic anemia (baseline hemoglobin of 11), GERD, chronic LE venous stasis ulcer, mood disorder, past tobacco abuse. Last confinement January 2023 for hyponatremia. Recent ER visit 9 days ago for fall secondary to loss of balance. Patient fell on her left side. No LOC, achy left hip pain noted. No fractures noted on imaging. Patient discharged home. Worsening left hip pain despite outpatient trochanteric bursa lidocaine/steroid injection 2 days ago. Patient brought to ER for evaluation. Initial SBP 180s. Patient denies headache, chest pain, SOB. 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 Baseline Functionality : Still able to do housework at home without rest/exertional chest pain, S OB prior to injury Allergies Allergy/AdvReac Type Severity Reaction Status Date / Time chlorhexidine Allergy Intermediate SEVERE RED Verified 05/31/23 11:22 AND BURNING SKIN amitriptyline Allergy Unknown PT UNSURE Verified 05/31/23 11:22 OF RXN dipyridamole Allergy Unknown PT DOESN'T Verified 05/31/23 11:22 KNOW WHAT HAPPENED NSAIDS (Non-Steroidal AdvReac Intermediate NOT TO Verified 05/31/23 11:22 Anti-Inflamma TAKE PER HER [employer]MENT [employer]ER propoxyphene AdvReac Intermediate GI UPSET, Verified 05/31/23 11:22 "DISORIENTED" amoxicillin AdvReac Mild VOMITING, Verified 05/31/23 11:22 GI UPSET baclofen AdvReac Mild disoriented Verified 05/31/23 11:22 nausea capsaicin [Diclopak] AdvReac Mild disoriented Verified 05/31/23 11:22 nausea clavulanic acid AdvReac Mild VOMITING, Verified 05/31/23 11:22 GI UPSET diclofenac [Diclopak] AdvReac Mild disoriented Verified 05/31/23 11:22 nausea Diclopak AdvReac Mild disoriented Verified 06/22/16 00:52 nausea codeine AdvReac Unknown pruritis Verified 05/31/23 11:22 Home Medications Medication Instructions Recorded Confirmed Type aspirin 81 mg tablet,delayed 81 mg PO PM 10/20/22 05/31/23 History release atorvastatin 80 mg tablet 80 mg PO PM 10/20/22 05/31/23 History ezetimibe 10 mg tablet 10 mg PO QAM 10/20/22 05/31/23 History icosapent ethyl 1 gram capsule 2 g PO BIDM 10/20/22 05/31/23 History levothyroxine 112 mcg tablet 112 mcg PO DAILYBB 10/20/22 05/31/23 History metoprolol succinate 25 mg 25 mg PO QAM 10/20/22 05/31/23 History tablet,extended release 24 hr omeprazole 40 mg capsule,delayed 40 mg PO DAILYBB 10/20/22 05/31/23 History release topiramate 100 mg tablet See Rx Instructions .Route .COMPLEX 10/20/22 05/31/23 History pyridoxine (vitamin B6) 250 mg 250 mg PO .NOON 10/21/22 05/31/23 History tablet (Vitamin B-6) apixaban 5 mg tablet (Eliquis) 5 mg PO BID 12/14/22 05/31/23 History cholecalciferol (vitamin D3) 125 125 mcg PO .NOON 12/14/22 05/31/23 History mcg (5,000 unit) tablet (Vitamin D3) docusate sodium 100 mg capsule 100 mg PO DAILY 12/14/22 05/31/23 History (Colace) oxcarbazepine 150 mg tablet See Rx Instructions .Route .COMPLEX 12/14/22 05/31/23 History (Trileptal) oxcarbazepine 300 mg tablet See Rx Instructions .Route .COMPLEX 12/14/22 05/31/23 History (Trileptal) folic acid 1 mg tablet 1 mg PO DAILY 04/04/23 05/31/23 History furosemide 20 mg tablet 30 mg PO DAILY 04/04/23 05/31/23 History gabapentin 100 mg capsule 100 mg PO TID 04/04/23 05/31/23 History magnesium chloride 64 mg 128 mg PO BID 04/04/23 05/31/23 History (magnesium chloride) tablet,delayed release mecobalamin (vitamin B12) 1,000 1,000 mcg sublingual DAILY 04/04/23 05/31/23 History mcg disintegrating tablet,sublingual pentoxifylline 400 mg 400 mg PO BID 04/04/23 05/31/23 History tablet,extended release Past Med/Surg History Medical History Diarrhea Hypomagnesemia SIADH (syndrome of inappropriate ADH production) Chronic pain DMII (diabetes mellitus, type 2) Hyponatremia Hypothyroidism (11/22/10) Hyperlipidemia (11/22/10) Gastroesophageal reflux disease (11/22/10) Coronary artery disease (11/22/10) Carotid artery stenosis (11/22/10) Benign hypertension (11/22/10) Acute non-ST segment elevation myocardial infarction (11/22/10) Spinal stenosis in cervical region Migraine History of adenomatous polyp of colon Osteoarthritis Cerebrovascular disease "old lacunar strokes on imaging" Surgical History H/O endarterectomy Status post coronary artery stent placement Status post hysterectomy Social History Smoking Status: Former smoker Tobacco Type: Cigarettes Second Hand Exposure: No; Do You Dip or Chew Tobacco: No; Hx Alcohol Use: No Hx Substance Use: No Preferred Language: [place] Communication Ability: Effective Visual Impairment: Partially Limited Hearing Ability: Normal Shuttle Fixer Required: No Beliefs That Will Affect Care: None Current Living Situation: Alone Current Living Situation Comment: home alone in apt building Feels Safe at Home: Yes Diet: regular caffeine: Yes Assistive Devices: Cane and Walker Review of Systems Review of Systems: As per HPI, all other systems reviewed and negative Physical Exam Physical Exam: GENERAL: Slightly uncomfortable, slightly anxious, obese, pleasant, no respi ratory distress SKIN: Pallor, warm HEENT: Pale palpebral conjunctivae, no ptosis, dry buccal mucosa NECK : Supple, no tenderness CHEST : Decreased breath sounds, no tenderness HEART : RRR, no obvious murmurs ABDOMEN: Some distention, nontender EXTREMITIES : Minimal LE swelling, left hip rotation with tenderness NEUROLOGIC : Coherent, no facial asymmetry, mild hearing impairment, gait and s tance not assessed Results & Data Results & Data Vital Signs (Past 12 Hours) Vital Signs Temp Pulse Pulse Resp BP Pulse Ox 06/06/23 05:57 78 20 188/116 H 97 06/06/23 05:33 37.1 C 06/06/23 05:07 83 19 173/117 H 98 06/06/23 03:55 78 Laboratory Results Laboratory Results WBC 8.83 K/ul (4.8-10.8) 06/06/23 03:24 RBC 3.65 M/uL (4.20-5.40) L 06/06/23 03:24 Hgb 11.0 g/dl (12.0-16.0) L 06/06/23 03:24 Hct 33.0 % (37.0-47.0) L 06/06/23 03:24 MCV 90.4 fL (80.0-100.0) 06/06/23 03:24 MCH 30.1 pg (25.0-34.0) 06/06/23 03:24 MCHC 33.3 g/dL (32.0-36.0) 06/06/23 03:24 RDW Std Deviation 44.2 fL (36.4-46.3) 06/06/23 03:24 RDW Coeff of Mine 13.4 % (11.5-14.5) 06/06/23 03:24 Plt Count 220 K/uL (130-400) 06/06/23 03:24 MPV 11.2 fL (9.4-12.4) 06/06/23 03:24 Sodium 134 mmol/L (136-145) L 06/06/23 03:24 Potassium 3.8 mmol/L (3.5-5.1) 06/06/23 03:24 Chloride 104 mmol/L (98-107) 06/06/23 03:24 Carbon Dioxide 23 mmol/L (21-32) 06/06/23 03:24 Anion Gap 7 (3-11) 06/06/23 03:24 BUN 23 mg/dl (6-23) 06/06/23 03:24 Creatinine 1.12 mg/dl (0.6-1.2) 06/06/23 03:24 Est Cr Clr Drug Dosing Not Reportable 06/06/23 03:24 Est GFR ( Amer) 54.5 ml/min 06/06/23 03:24 Est GFR (Non-Af Amer) 47.0 ml/min 06/06/23 03:24 BUN/Creatinine Ratio 20.5 (10-20) H 06/06/23 03:24 Glucose 70 mg/dl (70-99(Fasting)) 06/06/23 03:24 POC Glucose 86 mg/dl (70-99) 06/06/23 06:02 Calcium 9.4 mg/dl (8.6-10.3) 06/06/23 03:24 Troponin I High Sens 10.9 pg/ml (0-14) 06/06/23 03:[address] 06/06/23 04:11 CR Exam(s): CT PELVIS Without Contrast EXAM: CT Pelvis Without Intravenous Contrast CLINICAL HISTORY: Reason for exam: FELL PAIN AT LEFT SIDE OF PELVIS EVAL FOR FX.fell a few days ago, pain at left side most TECHNIQUE: Axial computed tomography images of the pelvis without intravenous contrast. CTDI is 30.64 mGy and DLP is 916.85 mGy-cm. Automated exposure control was utilized for the study. A dose lowering technique was utilized adhering to the principles of ALARA. COMPARISON: No relevant prior studies available. FINDINGS: Bowel: Colonic diverticulosis. No obstruction. No mucosal thickening. Appendix: No findings to suggest acute appendicitis. Intraperitoneal space: Unremarkable. No free air. No significant fluid collection. Bladder: Unremarkable. No stones. Reproductive: Unremarkable as visualized. Bones/joints: Acute impacted left femoral neck fracture with mild varus angulation. Consider orthopedics consultation. Chronic fracture of the right sacral ala extending to the right SI joint. Partially visualized fusion changes within the lumbar spine extending to S1. No dislocation. Soft tissues: Unremarkable. Vasculature: Partially visualized left SFA bypass. Atherosclerotic disease. Lymph nodes: Unremarkable. No enlarged lymph nodes. IMPRESSION: 1. Acute impacted left femoral neck fracture with mild varus angulation. Consider orthopedics consultation. 2. Chronic fracture of the right sacral ala extending to the right SI joint. 3. Colonic diverticulosis. Communications: Verify Receipt Electronically signed by: Stoney Trinidad MD 06/06/23 05:26 AM Diagnostic Findings Chest x-ray as per my interpretation no congestion EKG as per my interpretation : Rate 80, NSR, normal axis, no ischemia
[2023-06-06] MEDS: METOPROLOL SUCC 25MG EXT REL TAB PO STA (06:18)
[2023-06-06] MEDS ORDERED: HYDROmorphone INJ 0.5 MG/0.5 ML SYR IV PRN (06:23)
[2023-06-06] MEDS ORDERED: PROMETHAZINE HCL 6.25 MG in SODIUM CHLORIDE 0.9% 50 ML IV PRN (06:23)
[2023-06-06] MEDS ORDERED: CARBOHYDRATES FOR HYPOGLYCEMIA PO PRN (06:24)
[2023-06-06] MEDS ORDERED: GLUCAGON FOR INJ 1 MG VIAL SQ PRN (06:24)
[2023-06-06] MEDS ORDERED: DEXTROSE 50% 50 ML SYRINGE IV PRN (06:24)
[2023-06-06] MEDS ORDERED: GLUCOSE 40% GEL 15 GM TUBE PO PRN (06:24)
[2023-06-06] MEDS ORDERED: GLUCOSE 10 TAB/TUBE PO PRN (06:24)
[2023-06-06] MEDS: SODIUM CHLORIDE 0.9% 1,000 ML IV ONE (06:40)
[2023-06-06 06:52] LABS: Partial Thromboplastin Time 28 Seconds (21-31)
--- NOTE | 2023-06-06 07:54 | XRay Report ---
XR chest 1V portable CLINICAL HISTORY: preop, hx tobacco abuse TECHNIQUE: Single frontal radiograph of the chest was obtained. Comparison: Comparison is made to chest radiograph 12/14/2022 FINDINGS: No lines and tubes are seen. Cardiomegaly is noted. The aortic arch is calcified. The lungs are clear . No evidence of pleural effusion or pneumothorax. IMPRESSION: No acute chest disease. ACT 112: Negative or not required by law. Electronically signed by: Valeriy Montoya M.D. 06/06/2023 7:52 AM
[2023-06-06] MEDS ORDERED: Heparin IV Adult Wt-Based Low-Dose w/ INITIAL Bolus Protocol IV ONE (08:00)
[2023-06-06] MEDS ORDERED: bisacodyL 10 MG SUPP PR PRN (08:33)
[2023-06-06] MEDS ORDERED: NALOXONE HCL 0.4 MG/1 ML VIAL/CARP IV PRN (08:33)
[2023-06-06] MEDS: Heparin IV Adult Wt-Based Low-Dose *NO* INITIAL Bolus Protocol IV STA (08:34)
[2023-06-06 08:38] LABS: Basophils # (auto) 0.01 K/uL (0.00-0.20); Basophils % (auto) 0.1 %; Hemoglobin 9.7 g/dl (12.0-16.0); Immature Granulocytes # (auto) 0.02 K/uL (0.01-0.20); Immature Granulocytes % (auto) 0.3 %; Lymphocytes # (auto) 1.45 K/uL (1.20-3.40); Lymphocytes % (auto) 21.6 %; Mean Corpuscular Hemoglobin 30.3 pg (25.0-34.0); Mean Corpuscular Hgb Conc 33.4 g/dL (32.0-36.0); Mean Corpuscular Volume 90.6 fL (80.0-100.0); Mean Platelet Volume 11.1 fL (9.4-12.4); Monocytes # (auto) 0.46 K/uL (0.11-0.59); Monocytes % (auto) 6.8 %; Neutrophils # (auto) 4.78 K/uL (1.40-6.50); Neutrophils % (auto) 71.2 %; Platelet Count 202 K/uL (130-400); RDW Coefficient of Variation 13.6 % (11.5-14.5); RDW Standard Deviation 44.8 fL (36.4-46.3); White Blood Count 6.72 K/ul (4.8-10.8)
[2023-06-06] MEDS: HEPARIN SODIUM/DEXTROSE 25,000 UNITS/500 ML BAG IV SCH (08:39)
--- OUTSIDE RECORDS SUMMARY | 2023-06-06 08:45 | External Medical Summary | Summary of Care ---
Author Name Unknown Organization [facility] Address [address] [place] [address] Phone [phone] Care Team Providers Care Glove Presser Name Role Phone Naty Fang DO Primary Care Provider [phone] Encounter Details Date Type Department Care Team (Late st Contact Info) Description 06/04/2023 [facility] [address] [facility] [place] [address] [facility], Nurse Ortho [facility] [address] [place], [place] [address] Allergies Active Allergy Reactions Criticality Noted Date Comments Amitriptyline 06/22/2016 Other reaction(s): PT UNSURE OF RXN Amoxicillin-Pot Clavulanate Other (Please comment) 09/21/2014 Contributed to nausea and vomiting Baclofen Nausea/vomiting Low 09/10/2006 Capsaicin Low 10/20/2022 Other reaction(s): disoriented nausea Chlorhexidine High 06/22/2016 Other reaction(s): SEVERE RED AND BURNING SKIN Codeine 08/17/2017 pruritis Diclofenac Sodium Nausea/vomiting Medium 12/12/2008 Dipyridamole Tachycardia Low 11/21/2000 persantine stress test Nsaids High 10/20/2022 Other reaction(s): NOT 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 90 Tab 3 03/29/2018 Active Acetaminophen 325 MG CAPSIndications:pain Take by mouth 2 Tablets every 6 hours as needed for Pain, Mild. 0 Active Betamethasone Dipropionate 0.05 % External OintmentIndications: H/O dermatitis Apply 2x daily (or more if itchy instead of scratching) to hand rash until resolved-see printed sheet 50 g 0 05/24/2021 Active Magnesium Chloride 64 MG Oral Tablet Delayed Release Take 2 Tablets by mouth in the morning and 2 Tablets in the evening. 0 Active Topiramate 100 MG Oral Tablet (topAMAX) TAKE 1 TABLET BY MOUTH 4 TIMES A DAY 360 Tablet 1 01/30/2023 Active Omeprazole 40 MG Oral Capsule Delayed Release (PriLOSEC)Indication s:Gastroesophageal reflux disease without esophagitis TAKE 1 CAPSULE BY MOUTH DAILY, 1 HOUR BEFORE THE FIRST MEAL OF THE DAY. 100 Capsule 1 01/30/2023 Active Furosemide 20 MG Oral Tablet (Lasix)Indications:t mee 2nd dose of the day at least 4 hours after the first. Take 1.5 Tablets by mouth in the morning. 45 Tablet 5 01/30/2023 Active Atorvastatin Calcium 80 MG Oral Tablet (Lipitor)Indications :Dyslipidemia, goal LDL below 70 TAKE ONE TABLET BY MOUTH EVERY DAY. 100 Tablet 3 01/30/2023 Active Icosapent Ethyl 1 GM Oral Capsule (Vascepa)Indications :Dyslipidemia, goal LDL below 70 TAKE TWO CAPSULES BY MOUTH TWICE A DAY WITH MORNING AND EVENING MEALS - SWALLOW CAPSULES WHOLE - DO NOT OPEN OR BREAK 360 Capsule 1 01/30/2023 Active Levothyroxine Sodium 112 MCG Oral Tablet (Levoxyl)Indications :Acquired hypothyroidism Take 1 Tablet by mouth daily first thing in the morning. 90 Tablet 3 01/31/2023 Active Gabapentin 100 MG Oral Capsule (Neurontin) Take one tablet by mouth at bedtime for 7 days, then one tablet twice a day for 7 day, and then one tablet three times a day 90 Capsule 2 01/31/2023 Active Additional Information Patient taking differently: 100 mg Oral TID(AM/NOON/HS), Take one capsule three times a day, Reported on 03/26/2023 Metoprolol Succinate ER 25 MG Oral Tablet Extended Release 24 Hour (toPROL XL) Take 1 Tablet by mouth in the morning and 1 Tablet before bedtime. 60 Tablet 11 02/15/2023 Active Vitamin D (Cholecalciferol) 25 MCG (1000 UT) Oral CapsuleIndications:t aking OTC 5,000 IU daily Take 1 Capsule by mouth in the morning. 30 Capsule 1 03/12/2023 Active Benefiber Oral Tablet Chewable Take by mouth. 0 Activ e traMADol HCl 50 MG Oral Tablet (Ultram)Indications: PVD (peripheral vascular disease) ([facility]),Wound of lower extremity, unspecified laterality, subsequent encounter Take 1 Tablet by mouth every 6 hours as needed for Pain, Severe. 20 Tablet 0 04/27/2023 Active Vitamin B-6 100 MG Oral Tablet (vitamin B-6) take 2&1/2 tablets at noon (250 mg unavailable) 225 Tablet 0 05/01/2023 Active Ezetimibe 10 MG Oral Tablet (Zetia)Indications:T ype 2 diabetes mellitus without complication, without long-term current use of insulin ([facility]) TAKE ONE TABLET BY MOUTH EVERY DAY 100 Tablet 0 05/01/2023 Active OXcarbazepine 300 MG Oral Tablet (Trileptal) TAKE ONE TABLET BY MOUTH TWICE DAILY 60 Tablet 5 06/01/2023 Active Eliquis 5 MG Oral Tablet (Apixaban)Indication s:Deep vein thrombosis (DVT) of distal vein of lower extremity, unspecified chronicity, unspecified laterality ([facility]) TAKE ONE TABLET BY MOUTH TWICE DAILY 60 Tablet 5 05/31/2023 Active OXcarbazepine 150 MG Oral Tablet (Trileptal) TAKE ONE TABLET BY MOUTH TWICE DAILY 60 Tablet 5 06/01/2023 Active Pentoxifylline ER 400 MG Oral Tablet Extended Release (TRENtal)Indications :PVD (peripheral vascular disease) ([facility]) TAKE ONE TABLET TWICE DAILY 60 Tablet 5 05/31/2023 Active Vitamin B-12 1000 MCG Oral Tablet (Cyanocobalamin) TAKE ONE TABLET BY MOUTH IN THE MORNING 30 Tablet 06/01/2023 Active Folic Acid 1 MG Oral Tablet TAKE ONE TABLET IN THE MORNING 30 Tablet 5 05/31/2023 Active documented as of this encounter (statuses as of 06/05/2023) Active Problems Problem Noted Date Diagnosed Date Fall 06/01/2023 Acute pain of left shoulder due to trauma 2023 Neck pain 06/01/2023 Hypothyroidism 06/01/2023 Acute embolism and thrombosi s of deep vein of distal lower extremity 06/01/2023 PVD (peripheral vascular disease) 02/07/2023 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 Likely secondary to pain. Continue to monitor and if still elevated will defer to Nephrology for blood pressure medication adjustment. Follows with Nephrology-next appointment June 01 History of smoking 25-50 pack years 01/29/2018 Atherosclerotic heart diseas e of [place] coronary artery with unspecified angina pectoris 09/13/2017 S/P cervical spinal fusion 06/20/2016 Acquired hypothyroidism 12/13/2015 Chronic pain syndrome 07/26/2015 Degeneration of cervical intervertebral disc 01/2011 Metabolic syndrome 12/13/2010 Chronic ischemic heart disease 11/24/2010 Dyslipidemia, goal LDL below 70 11/24/2010 Gastroesophageal reflux disease without esophagi tis 04/20/2009 HTN, goal below 140/90 04/13/2009 ADVANCE DIRECTIVE INFORMATION 06/28/2005 Overview: Yes, Patient instructed to provide copy of advance directive for provider to review and to be scanned into Electronic Medical Record Degeneration of lumbosacral intervertebral disc Overview: gr1 L4-5,L5-S1 Spondylolisthesis L2-S1 stenosis S/P L2-5 Laminectomy, L4-5 PLIF, L2-N8Zmqmgjhn w PSF- Jan 2011 Juxtafusion deg L1-2 w stenosis Cerebrovascular disease, arteriosclerotic, post- stroke Osteoarthrosis involving multiple sites but not generalized Overview: S/P B TKR- Jun 2011 Dr Bertram Guerrero knee arthroscopy- 2014 Cervical spinal stenosis Overview: S/P C3-[address] Jun [address] Oneal Segovia C3-6 PSF Residual myelopathy documented as of this encounter (statuses as of 06/05/2023) Resolved Problems Problem Noted Date Diagnosed Date Resolved Date Acute blood loss anemia 02/21/2023 10/08/2022 Morbid obesity 09/12/2022 06/01/2023 Major depressive disorder with single episode 08/10/1910/18/2022 Morbid (severe) obesity due to excess calories 06/17/2019 05/15/2020 Type 2 diabetes mellitus wit h stage 3b chronic kidney disease, without long-term current use of insulin 06/17/2019 06/01/2023 Last Assessment & Plan: Most recent A1c 5.9 September 13. Controlled on metformin. Continue diabetic diet. 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 Other abnormal findings in s pecimens from digestive organs and abdominal cavity 01/30/2018 Overview: Positive cologuard History of colonoscopy with polypectomy 01/29/2018 06/03/2019 Fall from ground level 01/15/201801/29 Forehead abrasion 01/15/2018 01/29/2018 Hip pain, acute, left 01/15/20182017 Type 2 diabetes mellitus wit hout complication, without long-term current use of insulin 07/25/2017 10/18/2022 Type 2 diabetes mellitus wit h hemoglobin A1c goal of less than 7.0% 07/25/2017 01/30/2018 Asymptomatic stenosis of right carotid artery 01/31/20 13 12/09/2019 Overview: Moderate VIKRAM stenosis Duplicate. Visual changes 08/20/2012 04/19/2017 Bronchitis 08/20/2012 03/13/2017 Irregular heart beat 08/20/2012 018 Chest pain 04/06/2011 09/13/2017 MIGRAINE OPHTHALMOPLEGIC 10/11/201002/2018 Body mass index (BMI) of 40.0-44.9 in adult 08/31/2010 01/30/2018 Overview: ICD-10 update of inactive term Rotator cuff syndrome 08/31/20102017 Plantar fibromatosis 08/31/2010 018 Dyslipidemia, goal LDL below 160 04/20/2009 11/24/2010 Dyslipidemia, goal to be determined 04/13/2009 04/20/2009 Overview: Per Lipid Taxonomy. HTN, goal below 140/90 03/12/200904/13 Overview: Modified per HTN Taxonomy. Arthritis, rheumatoid 06/20/20052014 GENERAL OSTEOARTHROSIS 01/27/200411/11 OSTEOARTHROS NOS-L-LEG 01/27/200411/11 Carpal tunnel syndrome 12/02/200211/11 FAM HX-DIABETES MELLITUS 09/10/200112/2008 Family history of other card iovascular diseases 09/10/2001 11/11/2008 Overview: ICD-10 update of inactive term LUMBAGO 09/10/2001 11/11/2008 HYPERTENSION NOS 11/11/2008 Dyslipidemia, goal to be determined 11/11/2008 Hypothyroidism 11/11/2008 OBESITY, UNSPECIFIED 010 Overview: Per Obesity Taxonomy HTN, goal below 140/90 03/12 Overview: Modified per HTN Taxonomy. ACQUIRED HYPOTHYROID NEC 12/2015 Degeneration of cervical intervertebral disc 03/13/2017 Mixed dyslipidemia 9 Overview: Per Lipid Taxonomy. Benign neoplasm of colon Impaired fasting glucose 12/2015 Coronary atherosclerosis of [place] coronary artery 07/03/2018 documented as of this encounter (statuses as of 06/05/2023) Immunizations Name Administration Dates Next Due COVID-19 mRNA, LNP-s, No Pre serve, 2-Dose Series (Pfizer) 08/31/2021,02/10/2021,06/20/2020,05/30 COVID-19, LNP-s, No Preserve , John-sucrose, Ages 12+ (Pfizer) 08/31/2021 Covid-19, Mrna, Lnp-s, Pf, B ivalent, 10 Mcg, IM, 5-11 yrs (Pfizer) 03/21/2022 Covid-19, Mrna, Lnp-s, Pf, B ivalent, 30 Mcg, IM, 12 yrs and above (Pfizer) 03/21/2022 Pneumococcal Conjugate Vacc, 13 Valent (Prevnar) 12/13/2015 Pneumococcal Polysaccharide PPV23 (Pneumovax) 04/19/2017,04/15/2007 Season Influenza, Quad, PF, Adjuvanted, 65+ Yrs, IM (FLUAD) 03/05/2020 Seasonal Influenza, PF, 6 M & above, IM , (FluLaval or Fluzone) 02/13/2019,02/09/2018,02/20/2017 Seasonal Influenza, Quadriva lent Hd (Fluzone Hd) 02/09/2023,02/21/2022,01/28/2021 Seasonal Influenza, Quadriva lent, No Preserve, IM 03/27/2016,05/03/2015 Seasonal Influenza, Split, I IV3, With Preserve, Inj 01/19/2014,03/08/2013,02/14/2012,02/16,03/24/2006 TDAP (age 10 and older)(Boostrix) 02/21/2022,02/2012 Varicella Zoster Vaccine (Adult) 05/15/2014 Zoster Vaccine Recombinant (Shingrix) 12/03/2018 ,09/27/2018 documented as of this encounter Social History Tobacco Use Types Packs/Day Years Used Date Smoking Tobacco: Former Cigarettes 0.5 40 Q uit: 05/07/2010 Smokeless Tobacco: Never Alcohol Use Standard Drinks/Week Comments No 0 (1 standard drink = 0.6 oz pur e alcohol) PHQ-2 Answer Date Recorded PHQ Adult Total Score 0 07/10/2022 Hunger Vital Sign Answer Date Recorded Within the past 12 months, y ou worried that your food would run out before you got the money to buy more. Never true 07/11/19 Within the past 12 months, t he food you bought just didn't last and you didn't have money to get more. Never true 07/10/2022 Sex and Gender Information Value Date Recorded Sex Assigned at Female 06/17/2019 11:23 AM EST Gender Identity Female 06/17/2019 11:23 AM EST Sexual Orientation Straight 06/17/2019 11 :23 AM EST Job Start Date Occupation Industry Not on file Not on file Not on file documented as of this encounter Functional Status Functional Status Response Date of Assess ment Do you have serious difficul ty walking or climbing stairs? (5 years old or older) Yes 02/21/2023 documented as of this encounter Miscellaneous Notes * Telephone Encounter - Eyal Ramirez OSA - 06/05/2023 1:39 PM EST LMOM for pt to call and schedule OV with any provider to discuss * Telephone Encounter - Holley Reid LPN - 06/05/2023 11:04 AM EST Does not have appt with Dr. Fang until July, can we try to get her in sooner with PCP or colleagues to discuss recent falls? * Telephone Encounter - Minoo Pena MED KARIME - 06/04/2023 1:44 PM EST Patient seen in office today for other ortho issues. At the time of the visit, she had mentioned a last evening which resulted in a call to 911 for assistance, patient did refuse to go to ER at that time but did mention to us that she has had several falls in the last few weeks. Can we accommodate patient and get her scheduled for follow up in the next 1-2 weeks? documented in this encounter Plan of Treatment Upcoming Encounters Date Type Department Care Team (Late st Contact Info) Description 06/06/2023 10:00 AM EST Office Visit Orthopaedics [facility] [address] [place] [address] Ramon Medel MD [address] [place] [id number] 06/14/2023 9:00 AM EST Home Visit [facility] [address] [place] [address] Brad Mcdowell PA-C [address] [place] [address] 06/26/2023 10:30 AM EST Imaging Vascular Lab, [facility] 2[facility] [address] [facility] [place] [address] 06/26/2023 11:30 AM EST Imaging Vascular Lab, [address] [facility] [place] [address] 07/04/2023 11:50 AM EST Office Visit Vascular Surgery, [facility] [address] [facility] [place] [address] Chucky Lea MD [address] [place] [address] 07/06/2023 2:30 PM EST Home Visit [facility] [address] [place] [address] Sindi See, ESTHER [address] [place] [address] 07/16/2023 10:30 AM EDT Nurse Only Ancillary [facility] [address] [place] [address] Justin, Nurse Annual Wellness [facility] [address] [place] [address] 07/18/2023 10:40 AM EDT Office [facility] [address] [facility] [address] [place] [address] Juana Hewitt PA-C [address] [facility] [address] [place] [address] 07/31/2023 8:40 AM EDT Office Visit Family Practice [facility] [address] [place] [address] Naty Fang, DO [address] [place] [address] 08/16/2023 10:15 AM EDT Office Visit Orthopaedics [facility] [address] [place] [address] Cristhian Cantrell PA-C [address] [place] [address] 09/03/2023 10:15 AM EDT Office Visit Orthopaedics [facility] [address] [place] [address] Aiden Fong, DO [address] [place] [address] 09/04/2023 10:30 AM EDT Pharmacy Pharmacy, [facility] [address] [place] [address] Justin [facility] [address] [place] [address] 09/24/2023 2:20 PM EDT Office Visit Dermatology [address] [place] [address] Rebeka Cannon PA-C [address] [place] [address] [place] [address] 10/17/2023 1:00 PM EDT Office Visit [facility] [address] [place] [address] Naty Fang DO [address] [place] [address] 02/20/2024 2:40 PM EDT Office Visit Nephrology [address] [place] [address] Eileen Anderson MD [address] [place] [address] Health Maintenance Due Date Last Done Comments Hepatitis B (1 of 3 - Risk 3-dose series) 2004 COVID-19 Vaccine ( season) 2023 03/21/2022, 03/21/2022, 08/31/2021, Additional history exists HbA1c 03/16/2023 09/13/2022, 02/04, 12/08/2021, Additional history exists Depression Screening 07/11/2023 07/10/2022 Diabetic Foot Exam 07/11/2023 07/10/2022, 0 08/09/2021, 10/28/2020, Additional history exists Albumin/Creatinine Ratio 09/14/2023 023, 08/29/2021, 08/09/2021, Additional history exists GFR 10/02/2023 04/03/2023, 02/05, 02/23/2023, Additional history exists B-12 04/03/2024 04/03/2023, 10/0 08/2022, 01/04/2023, Additional history exists CKD HGB USE SMARTSET 11952 04/03/202404/03, 04/03/2023, 02/26/2023, Additional history exists CKD PHOS USE SMARTSET 83387 04/03/202403/08, 12/08/2021, 10/28/2020, Additional history exists TSH 04/03/2024 04/03/2023, 08/2022, 01/04/2023, Additional history exists Diabetic Eye Exam 04/10/2024 04/10/2023, , 12/08/2021, Additional history exists DXA Scan 05/10/2026 05/10/2016, 09/23/2010 DTaP,Tdap,and Td Vaccines (3 - Td or Tdap) 02/22/2032 02/21/2022, 02/14/2012 Pneumococcal Vaccine: 65+ Years Completed 04/19/2017, 12/13/2015, 04/15/2007 Zoster Vaccines Completed 12/03/2018, 09/05, 05/15/2014 LUNG CANCER SCREENING - USE SMARTSET [id number] Completed 01/06/2022, 07/19/2018 Influenza Vaccine (FLU shot) Completed 10/2022, 02/21/2022, 01/28/2021, Additional history exists GARDASIL-HPV IMMUNIZATION SERIES Aged Out No longer eligible based on patient's age to complete this topic MENINGOCOCCAL (MENACTRA/MENVEO) Aged Out No longer eligible based on patient's age to complete this topic documented as of this encounter Medical Devices Implanted Type Area Pouch Maker Device Identifier Shelf Expiration Date Model / Serial / Lot Patch Xenosure [id number] - [id number] - [id number] Implanted:Qty : 1 on 02/20/2023 [place]ucky Lea [place] [facility] [place]: Femoral Artery [employer] [id number] 10/01/2028 [id number] / [id number] / [id number] documented as of this encounter Advance Directives Documents on File Type Date Recorded Patient Administrative Assistant Receptionist Expl anation Advance Directives and Living Will 10/23/2016 ADVANCE DIRECTIVE FI VE WISHES Power of Electrical Plumbing Supervisor 10/23/2016 POWER OF A TTORNEY FIVE WISHES Latest Code Status on File Code Status Date Activated Date Inactivated Comments Full Code 02/20/2023 3:19 PM 02/27/2023 3:37 PM Thi s order reflects the patients wishes and were consensually agreed upon. Question Answer Comments Discussion of Advance Directives occurred with: Not Discussed due to patient's condition Code Status History Code Status Date Activated Date Inactivated Comments Full Code 02/20/2023 3:05 PM 02/20/2023 3:19 PM Thi s order reflects the patients wishes and were consensually agreed upon. Question Answer Comments Discussion of Advance Directives occurred with: Not Discussed due to patient's condition Full Code 10/13/2022 8:36 AM 10/13/2022 1:25 PM This or chelita reflects the patients wishes and were consensually agreed upon. Question Answer Comments Discussion of Advance Directives occurred with: Patient Healthcare Agents on File Name Relationship Healthcare Agent Relationship Communication Miguel Bustillo Jr. Adult Child First Alternate Health Care Agent (per Health Care Power of Electrical Plumbing Supervisor document) Krystin Arreguin Adult Child Health Care Agen t (per Health Care Power of Electrical Plumbing Supervisor document) Care Teams Glove Presser Relationship Specialty Start Date End Date Naty Fagn DO [address] [place] [address] PCP - General Family Medicine 12/01/16 documented as of this encounter
--- OUTSIDE RECORDS SUMMARY | 2023-06-06 08:45 | External Medical Summary | Summary of Care ---
Author Name Unknown Organization [facility] Address [address] [place] [address] Phone [phone] Care Team Providers Care Steel Engraver Name Role Phone Naty Fang DO Primary Care Provider [phone] Encounter Details Date Type Department Care Team (Late st Contact Info) Description 06/04/2023 Telephone [facility] [address] [place] [address] [facility], Nurse Ortho 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),Wound of lower extremity, unspecified laterality, subsequent [...] complication, without long-term current use of insulin ([facility]) TAKE ONE TABLET BY MOUTH EVERY DAY 100 Tablet 0 05/01/2023 Active OXcarbazepine 300 MG Oral Tablet (Trileptal) TAKE ONE TABLET BY MOUTH TWICE DAILY 60 Tablet 5 06/01/2023 Active Eliquis 5 MG Oral Tablet (Apixaban)Indication s:Deep vein thrombosis (DVT) of distal vein of lower extremity, unspecified chronicity, unspecified laterality ([facility]) TAKE ONE TABLET BY MOUTH TWICE DAILY 60 Tablet 5 05/31/2023 Active OXcarbazepine 150 MG Oral Tablet (Trileptal) TAKE ONE TABLET BY MOUTH TWICE DAILY 60 Tablet 5 06/01/2023 Active Pentoxifylline ER 400 MG Oral Tablet Extended Release (TRENtal)Indications :PVD (peripheral vascular disease) (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 Fang until July, can we try to get her in sooner with PCP or colleagues to discuss recent falls? * Telephone Encounter - Minoo Pena MED ASSIST - 06/04/2023 1:44 PM EST Patient seen [...] 06/06/2023 10:00 AM EST Office Visit Orthopaedics [facility] [address] [place] [address] Ramon Medel MD [address] [place] [phone] 06/14/2023 9:00 AM EST [facility] Visit [facility] [place], [facility] [address] [place] [address] Brad Mcdowell PA-C [address] [place] [address] 06/26/2023 10:30 AM EST Imaging Vascular Lab, [address] [facility] [place] [address] 06/26/2023 11:30 AM EST Imaging Vascular Lab, [address] [facility] [place] [address] 07/04/2023 11:50 AM EST Office Visit Vascular Surgery, [facility] [place] [address] Chucky Lea MD [address] [place] [address] 07/06/2023 2:30 PM EST [facility] Visit [facility] [address] [place] [address] Sindi See RN [address] [place] [address] 07/16/2023 10:30 AM EDT Nurse Only Ancillary [facility] [address] [facility] [place] [address] [facility], Nurse [facility] Wellness [place] [address] [facility] [place] [address] 07/18/2023 10:40 AM EDT Office Visit Neurology [facility] [address] [place] [address] Juana Hewitt PA-C [address] [place] [address] 07/31/2023 8:40 AM EDT Office Visit Family Practice [facility] [address] [place] [address] Naty Fang, DO [address] [place] [address] 08/16/2023 10:15 AM EDT Office Visit Orthopaedics [facility] [address] [place] [address] Cristhian Cantrell PA-C [address] [place] [address] 09/03/2023 10:15 AM EDT Office Visit Orthopaedics [facility] [address] [place] [address] Aiden Fong, DO [address] [place] [address] 09/04/2023 10:30 AM EDT Pharmacy Pharmacy, [facility] [address] [place] [address] [facility] [address] [place] [address] 09/24/2023 2:20 PM EDT Office Visit Dermatology [address] [place] [address] Rebeka Cannon PA-C [address] [place] [address] [place] [address] 10/17/2023 1:00 PM EDT Office Visit Family Practice [facility] [address] [place] [address] Naty Fang DO [address] [place] [address] 02/20/2024 2:40 PM EDT Office Visit Nephrology [address] [place] [address] Eileen Anderson MD [address] [facility] [place] [address] Health Maintenance Due Date Last Done Comments [...] 02/23/2023, Additional history exists B-12 04/03/2024 04/03/2023, 100 08/2022, 01/04/2023, Additional history exists CKD HGB USE SMARTSET 28834 04/03/202404/03, 04/03/2023, 02/26/2023, Additional history exists CKD PHOS USE SMARTSET 44149 04/03/202403/08, 12/08/2021, 10/28/2020, Additional history exists TSH 04/03/2024 04/03/2023, 08/2022, 01/04/2023, Additional history exists Diabetic Eye Exam 04/10/2024 04/10/2023, , 12/08/2021, Additional history exists DXA Scan 05/10/2026 05/10/2016, 09/23/2010 DTaP,Tdap,and Td Vaccines (3 - Td or Tdap) 02/22/2032 02/21/2022, 02/14/2012 Pneumococcal Vaccine: 65+ Years Completed 04/19/2017, 12/13/2015, 04/15/2007 Zoster Vaccines Completed 12/03/2018, 09/05, 05/15/2014 LUNG CANCER SCREENING - USE SMARTSET 72748 Completed 01/06/2022, 07/19/2018 Influenza Vaccine (FLU shot) Completed 10/2022, 02/21/2022, 01/28/2021, Additional history exists GARDASIL-HPV IMMUNIZATION SERIES Aged Out No longer eligible based on patient's age to complete this topic MENINGOCOCCAL (MENACTRA/MENVEO) Aged Out No longer eligible based on patient's age to complete this topic documented as of this encounter Medical Devices Implanted Type Area Clay Press Operator Device Identifier Shelf Expiration Date Model / Serial / Lot Patch Xenosure [id number] - [id number] - [id number] Implanted:Qty : 1 on 02/20/2023 by Chucky Lea MD at OR [facility] Left: Femoral Artery [employer] [id number] 10/01/2028 E0.8P8 / [id number] / [id number] documented as of this encounter Advance Directives Documents on File Type Date Recorded Patient Eligibility Counselor Expl anation Advance Directives and Living Will 10/23/2016 ADVANCE DIRECTIVE FI VE WISHES Power of Imaging Nurse 10/23/2016 POWER OF A TTORNEY FIVE WISHES [...] Care Agent (per Health Care Power of Imaging Nurse document) Krystin Arreguin Adult Child Health Care Agen t (per Health Care Power of Imaging Nurse document) Care Teams Steel Engraver Relationship Specialty Start Date End Date Naty Fang DO [address] [place] [address] PCP - General Family Medicine 12/01/16 documented as of this encounter
--- OUTSIDE RECORDS SUMMARY | 2023-06-06 08:45 | External Medical Summary | Summary of Care ---
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 Propoxyphene Napsylate Nausea/vomiting Low 01/24/20 00 documented [...] Oral Tablet (Ultram)Indications: PVD (peripheral vascular disease) ([facility]),Wound of lower extremity, unspecified laterality, subsequent encounter [...] complication, without long-term current use of insulin ([facility]) TAKE ONE TABLET BY MOUTH EVERY DAY 100 Tablet 0 05/01/2023 Active OXcarbazepine 300 MG Oral Tablet (Trileptal) TAKE ONE TABLET BY MOUTH TWICE DAILY 60 Tablet 5 06/01/2023 Active Eliquis 5 MG Oral Tablet (Apixaban)Indication s:Deep vein thrombosis (DVT) of distal vein of lower extremity, unspecified chronicity, unspecified laterality ([facility]) TAKE ONE TABLET BY MOUTH TWICE DAILY 60 Tablet 5 05/31/2023 Active OXcarbazepine 150 MG Oral Tablet (Trileptal) TAKE ONE TABLET BY MOUTH TWICE DAILY 60 Tablet 06/01/2023 Active Pentoxifylline ER 400 MG Oral Tablet Extended Release (TRENtal)Indications :PVD (peripheral vascular disease) ([facility]) TAKE ONE TABLET TWICE DAILY 60 Tablet [...] Carotid stenosis, asymptomatic, right 06/17/2019 History of [place] (myocardial infarction) 06/17/2019 Type 2 diabetes mellitus [...] years 01/29/2018 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 Never true 07/11/19 23 Within the past 12 months, t he [...] Encounter - Eyal Ramirez OSA - 06/05/2023 11:51 AM EST Ortho referral scheduled * Telephone Encounter - Annie Nuñez MED ASSIST - 06/02/2023 11:56 AM EST Pt informed. * Telephone Encounter - Huong Foreman CRNP - 06/01/2023 4:00 PM EST PLEASE NOTIFY PATIENT SHOULDER x ray showing no fracture but mild arthritis. I made her referral back to ortho to discuss options for it. Erinn, MSN, BECK [facility] documented in this encounter Plan of Treatment Upcoming Encounters Date Type Department Care Team (Late st Contact Info) Description 06/06/2023 10:00 AM EST Office Visit Orthopaedics [facility] [address] [place] [address] Ramon Medel MD [address] [place] [address] 06/14/2023 9:00 AM EST Home Visit [facility] [place], [facility] [address] [place] [address] Brad Mcdowell PA-C [address] [place] [address] 06/26/2023 10:30 AM EST Imaging Vascular Lab, [address] 132 [facility] [place] [address] 06/26/2023 11:30 AM EST Imaging Vascular Lab, [address] 132 [facility] [place] [address] 07/04/2023 11:50 AM EST Office Visit Vascular Surgery, [facility] 132 [facility] [place] [address] Chucky Lea MD [address] [place] [address] 07/06/2023 2:30 PM EST [facility] [address] [place] [address] Sindi See RN [address] [place] [address] 07/16/2023 10:30 AM EDT Nurse Only Ancillary [facility] 132 [facility] [place] [address] [facility], Nurse Annual Wellness [place] [address] [facility] [place] [address] 07/18/2023 10:40 AM EDT Office Visit Neurology [facility] [address] [place] [address] Juana Hewitt PA-C [address] [place] [address] 07/31/2023 8:40 AM EDT Office Visit Family Practice [facility] [address] [place] [address] Naty Fang, DO [address] [place] [address] 08/16/2023 10:15 AM EDT Office Visit Orthopaedics [facility] [address] [place] [address] Cristhian Cantrell PA-C [address] [place] [address] 09/03/2023 10:15 AM EDT Office Visit Orthopaedics [facility] [address] [place] [address] Aiden Fong, DO [address] [place] [address] 09/04/2023 10:30 AM EDT Pharmacy Pharmacy, [facility] [address] [place] [address] [facility] [address] [place] [address] 09/24/2023 2:20 PM EDT Office Visit Dermatology [address] [place] [address] Rebeka Cannon PA-C [address] [place] [address] [place] [address] 10/17/2023 1:00 PM EDT Office Visit Family Practice [facility] [address] [place] [address] Naty Fang DO [address] [place] [address] 02/20/2024 2:40 PM EDT Office Visit Nephrology [address] [place] [address] Eileen Anderson MD [address] [facility] [place] [place] [address] Health Maintenance Due Date Last Done Comments [...] Additional history exists CKD HGB USE SMARTSET 86069 04/03/202404/03, 04/03/2023, 02/26/2023, Additional history exists CKD PHOS USE SMARTSET 32968 04/03/202403/08, 12/08/2021, 10/28/2020, Additional history exists TSH 04/03/2024 04/03/2023, 10/0 08/2022, 01/04/2023, Additional history exists Diabetic Eye Exam 04/10/2024 04/10/2023, , 12/08/2021, Additional history exists DXA Scan 05/10/2026 05/10/2016, 09/23/2010 DTaP,Tdap,and Td Vaccines (3 - Td or Tdap) 02/22/2032 02/21/2022, 02/14/2012 Pneumococcal Vaccine: 65+ Years Completed 04/19/2017, 12/13/2015, 04/15/2007 Zoster Vaccines Completed 12/03/2018, 09/05, 05/15/2014 LUNG CANCER SCREENING - USE SMARTSET 94159 Completed 01/06/2022, 07/19/2018 Influenza Vaccine (FLU shot) Completed 10/2022, 02/21/2022, 01/28/2021, Additional history exists GARDASIL-HPV IMMUNIZATION SERIES Aged Out No longer eligible based on patient's age to complete this topic MENINGOCOCCAL (MENACTRA/MENVEO) Aged Out No longer eligible based on patient's age to complete this topic documented as of this encounter Medical Devices Implanted Type Area Supervisor Type Photography Device Identifier Shelf Expiration Date Model / Serial / Lot Patch Xenosure [id number] - [id number] - [id number] Implanted:Qty : 1 on 02/20/2023 by Chucky Lea MD at OR [facility] Left: Femoral Artery [facility] [id number] 10/01/2028 E0.8P8 / [id number] / [id number] documented as of this encounter Advance Directives Documents on File Type Date Recorded Patient Contract Writer Expl anation Advance Directives and Living Will 10/23/2016 ADVANCE DIRECTIVE FI VE WISHES Power of Cylinder Batcher 10/23/2016 POWER OF A TTORNEY FIVE WISHES [...] 10/13/2022 8:36 AM 10/13/2022 1:25 PM This o rder reflects the patients wishes and were consensually agreed upon. Question Answer Comments Discussion of Advance Directives occurred with: Patient Healthcare Agents on File Name Relationship Healthcare Agent Relationship Communication Miguel Bustillo Jr. Adult Child First Alternate Health Care Agent (per Health Care Power of Cylinder Batcher document) Krystin Arreguin Adult Child Health Care Agen t (per Health Care Power of Cylinder Batcher document) Care Teams Crusher Loader Equipment Operator Relationship Specialty Start Date End Date Naty Fang DO [address] [place] [address] PCP - General Family Medicine 12/01/16 documented as of this encounter
--- OUTSIDE RECORDS SUMMARY | 2023-06-06 08:45 | External Medical Summary | Summary of Care ---
Author Name Unknown Organization [facility] Address [address] [place] [address] Phone [phone] Care Team Providers Care Linotypist Name Role Phone ChauNaty dempsey Primary Care Provider [phone] Reason for Visit * Reason Comments Dosage Adjustment In Person (Anticoag Cl inic) Pain Encounter Details Date Type Department Care Team (Late st Contact Info) Description 06/05/2023 10:30 AM [facility] Pharmacy Pharmacy, [facility] [address] [place] [address] [facility] [address] [facility] [place] [address] Chronic pain syndrome* Allergies Active Allergy Reactions Criticality Noted Date [...] Other reaction(s): 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 Propoxyphene Napsylate Nausea/vomiting Low 01/24/20 00 documented [...] Oral Tablet (Ultram)Indications: PVD (peripheral vascular disease) ([facility]),Wound of lower extremity, unspecified laterality, subsequent encounter [...] use of insulin ([facility]) TAKE ONE TABLET BY MOUTH EVERY DAY 100 Tablet 0 05/01/2023 Active OXcarbazepine 300 MG Oral Tablet (Trileptal) TAKE ONE TABLET BY MOUTH TWICE DAILY 60 Tablet 5 06/01/2023 Active Eliquis 5 MG Oral Tablet (Apixaban)Indication s:Deep vein thrombosis (DVT) of distal vein of lower extremity, unspecified chronicity, unspecified laterality ([facility]) TAKE ONE TABLET BY MOUTH TWICE DAILY 60 Tablet 05/31/2023 Active OXcarbazepine 150 MG Oral Tablet (Trileptal) TAKE ONE TABLET BY MOUTH TWICE DAILY 60 Tablet 06/01/2023 Active Pentoxifylline ER 400 MG Oral Tablet Extended Release (TRENtal)Indications :PVD (peripheral vascular disease) ([facility]) TAKE ONE TABLET TWICE DAILY 60 Tablet 5 05/31/2023 Active Vitamin B-12 1000 MCG Oral Tablet (Cyanocobalamin) TAKE ONE TABLET BY MOUTH IN THE MORNING 30 Tablet 5 06/01/2023 Active Folic Acid 1 MG Oral Tablet TAKE ONE TABLET IN THE MORNING 30 Tablet 05/31/2023 Active documented as of this encounter [...] Carotid stenosis, asymptomatic, right 06/17/2019 History of [place] (myocardial infarction) 06/17/2019 Type 2 diabetes mellitus [...] years 01/29/2018 Atherosclerotic heart diseas e of [place] coronary artery with unspecified angina pectoris 09/13/2017 [...] L2-S1 stenosis S/P L2-5 Laminectomy, L4-5 PLIF, L2-I4Tsaxnfsf w PSF- Jan 2011 Juxtafusion deg L1-2 [...] Impaired fasting glucose 12/2015 Coronary atherosclerosis of [place] coronary artery 07/03/2018 documented as of this encounter (statuses as of 06/05/2023) Immunizations Name Administration Dates Next Due COVID-19 mRNA, LNP-s, No Pre serve, 2-Dose Series (Jiujiuweikang) 08/31/2021,02/10/2021,06/20/2020,05/30 COVID-19, LNP-s, No Preserve , John-sucrose, [...] Yes 02/21/2023 documented as of this encounter Progress Notes * Tia Engel, [facility] - 06/05/2023 9:51 AM EST Medication Therapy Disease Management Clinic - Chronic Pain Management Progress Note 06/05/2023 Goldie Bustillo, identified by name and date of , is a 77 year old female being seen for chronic pain management/education. Patient presents to pain MT clinic for return visit. Referring Physician: Naty Fang DO Medication Agreement: N/A Patient Pharmacy: [facility] in [place] Chief Complaint: DDD, OA, cervical spinal stenosis Patient notes 2 falls in last several weeks, one being 2 days ago Patient did call EMS, was seen in hospital with first fall with no fracutes identified, ortho ordered imagining yesterday without any fracture seen Patient notes soreness and pain from falls Patient recently moved into a handicap appartment Pain described as: burning, aching, muscle tightness Sleep: sleeps well (4-5 hours/night) if she tires herself with housework Palliating factors: "nothing", sits in recliner which is the only place she can sit with comfort, walks with cane Exacerbating factors: sitting, standing, walking (can only walk short distances) Other interventions tried: injections, surgeries, PT Worst time of day for pain: more pain when she wakes up then when she goes to sleep Psych History: depression (not currently managed) Cardiac Hx: HTN, chronic ischemic heart disease, carotid stenosis, hx stroke Renal Hx:history of kidney failure with Other: GERD, stomach ulcer many years ago Illicit Substance/Rx/Alcohol Abuse: none Opioid Risk Assessment Tool (BRQ): N/A Functional Goal: walk longer distances, attend [employer] sports games, volunteer, be less isolated Current Pain Level (06/05/23): worse due to falls/acute injuries Pain Level (12/07/22/): good since restarting after hospitalization (fall) Pain Level (09/07/22): "pretty good" but hand neuropathy very bad Patient Level (06/15/22): "pretty good" Pain Level (03/16/22): 9/10 (per patient, this is no change) Pain Level (12/01/21): no change Pain Level (09/08/21): stable, maybe slightly worse Pain Level (05/20/21): stable Pain Level (02/16/21): improvement with trileptal Pain Level (11/23/20): worse Pain Level (07/20/2020): slightly worse Pain Level (03/02/20): slightly worse Pain Level (12/30/19): stable Pain Level (10/28/19): stable Pain Level (08/26/19):worse Pain Level (02/25/19): no change Pain Level (10/29/18):same as previous visit Pain Level (07/30/18):same as previous visit Pain Level (05/30/18): same as last visit Pain Level (04/04/18):average 9-10/10 Pain Level (01/08/18): average 8-10/10 Pain Level (12/04/17): not assessed today Pain Level (10/18/17): average 10/10 before meds and 8/10 with meds Pain Level (09/06/17): average morning 8-9/10, afternoon 7-8/10, evening 8-9/10 Pain Level (07/26/17): not assessed today Pain Level Initial Visit (06/12/2017): average 6/10, worst 8-01/23, best 4-5/10 Past Pain Medications: Opioid - [place], codeine - allergy (severe itching), Oxycodone/Percocet/MS Contin/Tramadol - all incomplete response (only dulled pain) Muscle relaxer - Soma (doesn't work, no SE), Baclofen (N/V), Methocarbamol (no longer effective, noSE), Flexeril, Metaxalone Antiepileptic - Gabapentin / Lyrica - upset stomach Antidepressant - Cymbalta (felt like something crawling on her), Amitriptyline (inefective, no SE) NSAID - Celebrex (chest pain), Diclofenac (N/V), ibuprofen/naproxen (can't take per cardio) Other - Prednisone- helped significantly Current Pain Medications: Acetaminophen 650 mg, 2 tabs BID - most days Topamax 100 mg -1 in AM and afternoon and 2 in evening - sometimes take 1 extra in the afternoon Trileptal 450 mg BID Capsaicin trial on hand (did not start) Tramadol 50 mg q6hr prn Creatinine Clearance: Serum creatinine: 0.9 mg/dL 04/03/23 1413 Estimated creatinine clearance: 43.7 mL/min Creatinine Results: Recent Labs Units 04/03/23 1413 02/26/23 0720 02/23/23 0544 CREATININE - [facility] mg/dL 0.9 1.2* 1.2* Hepatic Function (ALT): Recent Labs Units 01/04/23 1033 11/22/22 1135 08/16/21 1400 ALT - [facility] U/L 46* 31 38* Comprehensive Metabolic Panel Results: Results for orders placed or performed in visit on 11/22/22 COMPREHENSIVE METABOLIC PANEL Result Value Ref Range BUN 21 (H) 6 - 20 mg/dL Creatinine 1.2 (H) 0.5 - 1.0 mg/dL Estimated Glomerular Filtration Rate 45 (L) >=60 mL/min Sodium 129 (L) 135 - 146 mmol/L Potassium 4.7 3.5 - 5.1 mmol/L Chloride 95 (L) 98 - 107 mmol/L CO2 21 (L) 22 - 32 mmol/L Anion Gap 13 7 - 15 mmol/L Glucose 92 70 - 120 mg/dL Albumin 4.5 3.8 - 5.0 g/dL AST 38 (H) 10 - 35 U/L Alkaline Phosphatase 83 35 - 130 U/L Bilirubin, Total 0.4 <=1.2 mg/dL Calcium 9.9 8.4 - 10.2 mg/dL Protein 6.5 6.0 - 8.3 g/dL ALT 31 10 - 35 U/L ASSESSMENT: Patient aware MTM is a clinical pharmacist visit, with focus on medication options for current diagnoses referred by Primary Care Provider for review and optimization. Focus of this visit is Medication Optimization. Current concerns: acute pain secondary to multiple falls Adherence: Reviewed current regimen, patient is adherent to regimen. Treatment options: continue current chronic medications, consider tramadol refill for acute issues Treatment concerns: concern for falls and stability/balance Education provided: discussed fall prevention I have evaluated the patient for the appropriateness and necessity of opioid pain medications. Patient has been educated towards the benefits and risks of opioid medications, including dependence, addiction, and overdose. Patient is aware of the requirements set out in the medication use agreement,including the need for routine urine drug screening. No red flags for abuse or misuse have been exhibited. PLAN: Continue current medications Tramadol refill request to pcp Medication changes: no change Pain Medications: Acetaminophen 650 mg, 2 tabs BID - most days Topamax 100 mg -1 in AM and afternoon and 2 in evening - sometimes take 1 extra in the afternoon Trileptal 450 mg BID Capsaicin trial on hand (did not start) Tramadol 50 mg q6hr prn Patient verbalized understanding of the plan. Contact clinic with any issues. FOLLOW UP: Return to clinic in 12 weeks 09/04/2023 Tia Engel RPh Clinical Pharmacist - Esl Professor Medication Therapy Management Clinic 06/05/2023, 9:51 AM documented in this encounter Plan of Treatment Upcoming Encounters Date Type Department Care Team (Late st Contact Info) Description 06/06/2023 10:00 AM EST Office Visit Orthopaedics [facility] [address] [address] [address] Ramon Medel MD [address] [place] [address] 06/14/2023 9:00 AM EST Home Visit [facility], [facility] [address] [place] [address] Brad Mcdowell PA-C [address] [place] [address] 06/26/2023 10:30 AM EST Imaging Vascular Lab, [facility] [address] [facility] [place] [address] 06/26/2023 11:30 AM EST Imaging Vascular Lab, [facility] [address] [facility] [place] [address] 07/04/2023 11:50 AM EST Office Visit Vascular Surgery, [facility] [address] [facility] [place] [address] Chucky Lea MD [address] [place] [address] 07/06/2023 2:30 PM EST Home Visit [facility], [facility] [address] [facility] [place] [address] Sindi See RN [address] [facility] [place] [address] 07/16/2023 10:30 AM EDT Nurse Only Ancillary [facility] [address] [facility] [place] [address] Justin, Nurse [facility] [address] [facility] [place] [address] 07/18/2023 10:40 AM EDT Office Visit Neurology [facility] [address] [place] [address] Juana Hewitt PA-C [address] [facility] [place] [address] 07/31/2023 8:40 AM EDT Office Visit [facility] [address] [place] [address] Naty Fang, DO [address] [place] [address] 08/16/2023 10:15 AM EDT [facility] [address] [place] [address] Cristhian Cantrell PA-C [address] [place] [address] 09/03/2023 10:15 AM EDT [facility] [address] [place] [address] Aiden Fong, DO [address] [place] [address] 09/04/2023 10:30 AM EDT Pharmacy Pharmacy, [facility] [place] [address] [facility] [address] [place], [place] [address] 09/24/2023 2:20 PM EDT Office Visit Dermatology [address] [place] [address] Rebeka Cannon PA-C [address] [place] [address] [place] [address] 10/17/2023 1:00 PM EDT Office Visit [facility] [address] [place] [address] Naty Fang, DO [address] [place] [address] 02/20/2024 2:40 PM EDT Office Visit Nephrology [address] [place] [address] Eileen Anderson MD [address] [place] [address] Health Maintenance Due Date Last Done Comments [...] Additional history exists CKD HGB USE SMARTSET 77270 04/03/202404/03, 04/03/2023, 02/26/2023, Additional history exists CKD PHOS USE SMARTSET 32482 04/03/202403/08, 12/08/2021, 10/28/2020, Additional history exists TSH 04/03/2024 04/03/2023, 10/0 08/2022, 01/04/2023, Additional history exists Diabetic Eye Exam 04/10/2024 04/10/2023, , 12/08/2021, Additional history exists DXA Scan 05/10/2026 05/10/2016, 09/23/2010 DTaP,Tdap,and Td Vaccines (3 - Td or Tdap) 02/22/2032 02/21/2022, 02/14/2012 Pneumococcal Vaccine: 65+ Years Completed 04/19/2017, 12/13/2015, 04/15/2007 Zoster Vaccines Completed 12/03/2018, 09/05, 05/15/2014 LUNG CANCER SCREENING - USE SMARTSET [id number] Completed 01/06/2022, 07/19/2018 Influenza Vaccine (FLU shot) Completed 10/2022, 02/21/2022, 01/28/2021, Additional history exists GARDASIL-HPV IMMUNIZATION SERIES Aged Out No longer eligible based on patient's age to complete this topic MENINGOCOCCAL (MENACTRA/MENVEO) Aged Out No longer eligible based on patient's age to complete this topic documented as of this encounter Medical Devices Implanted Type Area Muck Farmer Device Identifier Shelf Expiration Date Model / Serial / Lot Patch Xenosure [id number] - [id number] - [id number] Implanted:Qty : 1 on 02/20/2023 by Chucky Lea MD at OR [facility] [employer] Left: Femoral Artery [employer] [id number] 10/01/2028 [id number] / [id number] / [id number] documented as of this encounter Visit Diagnoses Diagnosis Chronic pain syndrome- Primary documented in this encounter Advance Directives Documents on File Type Date Recorded 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
--- OUTSIDE RECORDS SUMMARY | 2023-06-06 08:46 | External Medical Summary | Summary of Care ---
Author Name Unknown Organization [facility] Address [address] [facility] [place] [address] Phone [phone] Care Team Providers Care Paperhanger And Painter Name Role Phone ChauNaty dempsey Primary Care Provider [phone] Reason for Visit * Reason Comments Follow Up Bilateral troch Encounter Details Date Type Department Care Team (Late st Contact Info) Description 06/04/2023 10:30 AM EST Office Visit Orthopaedics [facility] [address] [place] [address] Melissa Mahmood DO [address] [place] [address] Greater trochanteric pain syndrome of both lower extremities*; Status post fall Allergies Active Allergy Reactions Criticality Noted Date [...] Other reaction(s): 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 Propoxyphene Napsylate Nausea/vomiting Low 01/24/20 00 documented as of this encounter (statuses as of 06/04/2023) Medications Medication Sig Dispensed Refills Start Date [...] complication, without long-term current use of insulin (HCC) TAKE ONE TABLET BY MOUTH EVERY DAY 100 Tablet 0 05/01/2023 Active OXcarbazepine 300 MG Oral Tablet (Trileptal) TAKE ONE TABLET BY MOUTH TWICE DAILY 60 Tablet 06/01/2023 Active Eliquis 5 MG Oral Tablet (Apixaban)Indication s:Deep vein thrombosis (DVT) of distal vein of lower extremity, unspecified chronicity, unspecified laterality (HCC) TAKE ONE TABLET BY MOUTH TWICE DAILY 60 Tablet 05/31/2023 Active OXcarbazepine 150 MG Oral Tablet (Trileptal) TAKE ONE TABLET BY MOUTH TWICE DAILY 60 Tablet 06/01/2023 Active Pentoxifylline ER 400 MG Oral Tablet Extended Release (TRENtal)Indications :PVD (peripheral vascular disease) (HCC) TAKE ONE TABLET TWICE DAILY 60 Tablet 05/31/2023 Active Vitamin B-12 1000 MCG Oral Tablet (Cyanocobalamin) TAKE ONE TABLET BY MOUTH IN THE MORNING 30 Tablet 06/01/2023 Active Folic Acid 1 MG Oral Tablet TAKE ONE TABLET IN THE MORNING 30 Tablet 05/31/2023 Active Hospital, Clinic, or Other Facility Administered Medication Ordered Dose Route Frequency Start Date End Date Status lidocaine 1% 1 mL - triamcinolone acetonide 40 mg/mL 1 mL inj 2 mLIndications:Greater trochanteric pain syndrome of both lower extremities 2 mL IJ ONCE 06/04/2023 06/04/2023 Ended lidocaine 1% 1 mL - triamcinolone acetonide 40 mg/mL 1 mL inj 2 mLIndications:Greater trochanteric pain syndrome of both lower extremities 2 mL IJ ONCE 06/04/2023 06/04/2023 Ended documented as of this encounter (statuses as of 06/04/2023) Active Problems Problem Noted Date Diagnosed Date [...] Carotid stenosis, asymptomatic, right 06/17/2019 History of SC (myocardial infarction) 06/17/2019 Type 2 diabetes mellitus [...] years 01/29/2018 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 09/13/2017 [...] L2-S1 stenosis S/P L2-5 Laminectomy, L4-5 PLIF, L2-T4Byrabnlv w PSF- Jan 2011 Juxtafusion deg L1-2 w stenosis Cerebrovascular disease, arteriosclerotic, post- stroke Osteoarthrosis involving multiple sites but not generalized Overview: S/P B TKR- Jun 2011 Dr Bertram Guerrero knee arthroscopy- 2014 Cervical spinal stenosis Overview: S/P C3-[address] Jun [address] Oneal Segovia C3-6 PSF Residual myelopathy documented as of this encounter (statuses as of 06/04/2023) Resolved Problems Problem Noted Date Diagnosed Date Resolved Date Acute blood loss anemia 02/21/202302/05 Morbid obesity 09/12/2022 06/01/2023 Major depressive disorder with single episode 08/10/19 22 10/18/2022 Morbid (severe) obesity due to excess calories 06/17/2019 05/15/2020 Type 2 diabetes mellitus wit h stage 3b chronic kidney disease, without long-term current use of insulin 06/17/2019 06/01/2023 Last Assessment & Plan: Most recent A1c 5.9 September 13. Controlled on metformin. Continue diabetic diet. Follows with [facility] pharmacy Hypertensive kidney disease with CKD stage [...] Impaired fasting glucose 12/2015 Coronary atherosclerosis of koi coronary artery 07/03/2018 documented as of this encounter (statuses as of 06/04/2023) Immunizations Name Administration Dates Next Due COVID-19 mRNA, LNP-s, No Pre serve, 2-Dose Series ([employer]) 08/31/2021,02/10/2021,06/20/2020,05/30 COVID-19, LNP-s, No Preserve , John-sucrose, Ages 12+ (Pfizer) 08/31/2021 Covid-19, Mrna, Lnp-s, Pf, B ivalent, 10 Mcg, IM, 5-11 yrs (Pfizer) 03/21/2022 Covid-19, Mrna, Lnp-s, Pf, B ivalent, 30 Mcg, IM, 12 yrs and above ([employer]) 03/21/2022 Pneumococcal Conjugate Vacc, 13 Valent (Prevnar) [...] as of this encounter Progress Notes * Melissa Mahmood, DO - 06/04/2023 10:30 AM EST Goldie Ana Laura Bustillo [id number] INJECTION and OFFICE NOTE Goldie Bustillo is a 77 year old female who presents to [facility] for Bilateral trochanteric bursa injection. She also reports that she has had a history of falls two in the last week in fact she fell last night on her left side, she reports that she did not have any cardiac, respiratory ,or syncopal type symptoms, her left shoulder, ribs, and her and hip hurts significantly she called EMS but refused to be transported to the hospital, she stated she had an orthopedic appointment with me today even though it was only scheduled for injections. She has her EMS paperwork with her today Regarding her injections see below Last injected 02/28/23 she got relief for approx 3 months Physical Exam General: in no acute distress regarding cardiovascular. However she is moving extremely slow and exam room today Mood and Affect: normal Gait and Station: significantly antalgic Peripheral pulses: normal in affected extremity (s) Skin examination: normal on affect extremity (s) no significant bruising of left upper extremity left ribcage or left hip Sensation: normal on affected extremity (s) Shoulder exam, bilateral Shoulder glenohumeral range of motion: ABD (100') - Right - 100 degrees Left - 60 degrees ER (90') - Right - 90 degrees Left - 60 degrees IR (60') - Right - 50 degrees Left - 20 degrees FF (110') - Right - 110+ degrees Left - 90 with pain degrees Palpation: Tenderness along anterior shoulder no signs of dislocation Strength and cuff tests: supraspinatous (empty can): Right - 5/5 Left - 3/5 infraspinatous/teres minor (resisted external rotation): Right - 5/5 Left - 3/5 subscapularis (resisted internal rotation): Right - 5/5 Left - 3/5 drop arm negative Bilateral Cervical Spine: Patient denies neck symptoms and/or numbness/tingling in upper extremities Tenderness to palpation along left lateral and posterior ribs 4- 6 Left hip mild pain with internal external rotation significant tenderness to palpation bilateral trochanteric regions Radiology (I have personally reviewed the films done today): Left shoulder x-ray reveals no fracture and mild glenohumeral and mild AC arthritis Radiology (I have personally reviewed the films done today): Left ribs x-ray reveals no fracture that I can see on x-ray. Await radiology over-read. Lumbar spine does show postsurgical changes and orthopedic hardware. Lungs and heart grossly normal Radiology (I have personally reviewed the films done today): Left hip x-ray reveals no fracture andmild left hip arthritis. Again orthopedic lumbar spine hardware noted. Assessment and Plan: For fall recommend ice as needed and Tylenol 1000 mg up to 3 times per day. Wewill do trochanteric injections as well. She should have follow up with her PCP this week as this is her 2nd fall in approximately 7 days. I do believe this exam is warranted even though she does notreport any cardiovascular or syncope type symptoms. Her primary care team can also review pain management and decide if physical therapy is indicated along with any potential home safety issues. We will call with any changes in x-ray reads Greater trochanteric pain syndrome of both lower extremities (Primary) - lidocaine 1% 1 mL - triamcinolone acetonide 40 mg/mL 1 mL inj 2 mL - lidocaine 1% 1 mL - triamcinolone acetonide 40 mg/mL 1 mL inj 2 mL - POINT OF CARE US MAJOR JOINT INJECTION, ORTHO Status post fall - XR SHOULDER, 2 OR MORE VIEWS - XR HIP UNILAT 2-3 VIEWS INCLUDING AP PELVIS - XR RIBS UNILATERAL W/PA CHEST MINIMUM 3 VIEWS Follow-up: Return in about 3 months (around 09/03/2023). | Check-out note: 30 min b/l jennifer Mahmood DO [facility] Orthopaedics [address] [address] Procedure note (trochanteric bursa), bilateral : Time out: Prior to injection, a time out was called to confirm the administration of appropriate medicine, patient name, procedure and confirm to the best of our ability and knowledge the presence of any necessary risks and benefits. Patient verbalizes understanding. Ultrasound utilized to guide injection Ultrasound required due to patient size (obese) and need to visualize specific bursa and inject in this specific location. Sterile techinique applied. Skin sterilized with alcohol swab. Lateral aproach to inject trochanteric bursa using 3.5 inch, 22 gauge needle. Injected with lidocaine 1% 1 mL - triamcinolone acetonide 40 mg/mL 1 mL inj 2 mL Patient tolerated procedure with no significant bleeding or adverse reaction. Patient instructed to call or return to clinic for fever or warmth and redness at injection site for potential infection. Patient also advised as to potential for steroid flare reaction including increased pain and redness at injection site which should be treated with ice and resolve within 24 hours. Melissa aMhmood DO documented in this encounter Nursing Notes * Librado Pena MED ASSIST - 06/04/2023 9:38 AM EST Follow up Patient Follow up: Hip Side: Bilateral Date of last visit: Improvement since last office visit: 0 percent. Prior Treatment: Injection Here for Test Results: No Goals for this appointment: troch inj documented in this encounter Miscellaneous Notes * Addendum Note - Melissa Mahmood DO - 06/04/2023 10:52 AM ESTAddended by: MELISSA MAHMOOD on: 06/04/2023 10:52 AM Modules accepted: Level of Service * Addendum Note - Librado Pena MED ASSIST - 06/04/2023 10:01 AM ESTAddended by: LIBRADO PENA on: 06/04/2023 10:01 AM Modules accepted: Orders documented in this encounter Plan of Treatment Upcoming Encounters Date Type Department Care Team (Late st Contact Info) Description 06/05/2023 10:30 AM EST Pharmacy Pharmacy, [facility] [address] [address] [facility] [address] [address] 06/06/2023 10:00 AM EST Office Visit Orthopaedics [facility] [address] [address] Ramon Medel MD [address] [place] [phone] 06/14/2023 9:00 AM EST Home Visit [facility]inger at [place], [facility] [address] [address] Brad Mcdowell PA-C [address] [facility] [place] [address] 06/26/2023 10:30 AM EST Imaging Vascular Lab, [facility]nd [facility] [place] [address] [facility] [place] [address] 06/26/2023 11:30 AM EST Imaging Vascular Lab, [facility] [place] [address] [facility] [place] [address] 07/04/2023 11:50 AM EST Office Visit Vascular Surgery, [facility] [address] [facility] [place] [address] Chucky Lea MD [address] [place] [address] 07/06/2023 2:30 PM EST Home Visit [facility]inger at Home, [facility] [address] [place] [address] Sindi See RN [address] [facility] [place] [address] 07/16/2023 10:30 AM EDT Nurse Only Ancillary [facility] [address] [facility] [place] [address] [facility], Nurse [address] [place] [address] 07/18/2023 10:40 AM EDT Office Visit Neurology [facility] [place] [address] [place] [address] Juana Hewitt PA-C [address] [place] [address] 07/31/2023 8:40 AM EDT Office Visit Family Practice [facility] [address] [facility] [place] [address] Naty Fang, DO [address] [place] [address] 08/16/2023 10:15 AM EDT Office Visit Orthopaedics [facility] [address] [place] [address] Cristhian Cantrell PA-C [address] [place] [address] 09/24/2023 2:20 PM EDT Office Visit Dermatology [address] [place] [address] Rebeka Cannon PA-C [address] [place] [address] [place] [address] 10/17/2023 1:00 PM EDT Office Visit Family Practice [facility] [address] [place] [address] Naty Fang, DO [address] [place] [address] 02/20/2024 2:40 PM EDT Office Visit Nephrology [address] [place] [address] Eileen Anderson MD [address] [facility] [place] [address] Pending Results Name Type Priority Associated Diagnoses Date /Time XR SHOULDER, 2 OR MORE VIEWS Medical Imaging STAT Status post fall 06/04/2023 10:40 AM EST XR HIP UNILAT 2-3 VIEWS INCLUDING AP PELVIS Medical Imaging STAT Status post fall06/04/2023 10:40 AM EST XR RIBS UNILATERAL W/PA CHEST MINIMUM 3 VIEWS Medical Imaging STAT Status post fall06/04/2023 10:40 AM EST Scheduled Orders Name Type Priority Associated Diagnoses Orde r Schedule POINT OF CARE US MAJOR JOINT INJECTION, ORTHO Medical Imaging Routine Greater trochanteric pain syndrome of both lower extremities Ordered: 06/04/2023 Health Maintenance Due Date Last Done Comments [...] Additional history exists CKD HGB USE SMARTSET 19081 04/03/202404/03, 04/03/2023, 02/26/2023, Additional history exists CKD PHOS USE SMARTSET 98666 04/03/202403/08, 12/08/2021, 10/28/2020, Additional history exists TSH 04/03/2024 04/03/2023, 10/0 08/2022, 01/04/2023, Additional history exists Diabetic Eye Exam 04/10/2024 04/10/2023, , 12/08/2021, Additional history exists DXA Scan 05/10/2026 05/10/2016, 09/23/2010 DTaP,Tdap,and Td Vaccines (3 - Td or Tdap) 02/22/2032 02/21/2022, 02/14/2012 Pneumococcal Vaccine: 65+ Years Completed 04/19/2017, 12/13/2015, 04/15/2007 Zoster Vaccines Completed 12/03/2018, 09/05, 05/15/2014 LUNG CANCER SCREENING - USE SMARTSET 95924 Completed 01/06/2022, 07/19/2018 Influenza Vaccine (FLU shot) Completed 10/2022, 02/21/2022, 01/28/2021, Additional history exists GARDASIL-HPV IMMUNIZATION SERIES Aged Out No longer eligible based on patient's age to complete this topic MENINGOCOCCAL (MENACTRA/MENVEO) Aged Out No longer eligible based on patient's age to complete this topic documented as of this encounter Medical Devices Implanted Type Area White Shoe Ragger Device Identifier Shelf Expiration Date Model / Serial / Lot Patch Xenosure [id number] - [id number] - [id number] Implanted:Qty : 1 on 02/20/2023 by Chucky Lea MD at [facility] Left: Femoral Artery [employer] [facility] [id number] 10/01/2028 [id number] / [id number] / [id number] documented as of this encounter Visit Diagnoses Diagnosis Greater trochanteric pain syndrome of both lower extremities- Primary Status post fall Unspecified fall documented in this encounter Administered Medications Inactive Administered Medications - up to 3 most recent administrations Medication Order MAR Action Action Date Dose Rate Site lidocaine 1% 1 mL - triamcinolone acetonide 40 mg/mL 1 mL inj 2 mL 2 mL, Injection, ONCE, On Sun06/04/23 at 1030, For 1 dose, Lidocaine 1% 1mL Triamcinolone Acetonide 40 mg/mL 1 mL (Final concentration = 20 mg/mL) REFRIGERATE and SHAKE WELL Given 06/04/2023 10:37 AM EST 2 mL Hip Left lidocaine 1% 1 mL - triamcinolone acetonide 40 mg/mL 1 mL inj 2 mL 2 mL, Injection, ONCE, On Sun06/04/23 at 1030, For 1 dose, Lidocaine 1% 1mL Triamcinolone Acetonide 40 mg/mL 1 mL (Final concentration = 20 mg/mL) REFRIGERATE and SHAKE WELL Given 06/04/2023 10:38 AM EST 2 mL Hip Right documented in this encounter Advance Directives Documents on File Type Date Recorded Patient Sat Tutor Expl anation Advance Directives and Living Will 10/23/2016 ADVANCE DIRECTIVE FI VE WISHES Power of Solar Resource Assessor 10/23/2016 POWER OF A TTORNEY FIVE WISHES [...] Care Agent (per Health Care Power of Solar Resource Assessor document) Krystin Arreguin Adult Child Health Care Agen t (per Health Care Power of Solar Resource Assessor document) Care Teams Paperhanger And Painter Relationship Specialty Start Date End Date Naty Fang DO [address] [id number] PCP - General Family Medicine 12/01/16 documented as of this encounter"
--- OUTSIDE RECORDS SUMMARY | 2023-06-06 08:46 | External Medical Summary | Summary of Care ---
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 Continue diabetic diet. Follows with [facility] pharmacy Hypertensive kidney disease with CKD stage [...] Impaired fasting glucose 12/2015 Coronary atherosclerosis of [place] coronary artery 07/03/2018 documented as of this encounter (statuses as of 06/04/2023) Immunizations Name Administration Dates Next Due COVID-19 mRNA, LNP-s, No Pre serve, 2-Dose Series (DoNanza) 08/31/2021,02/10/2021,06/20/2020,05/30 COVID-19, LNP-s, No Preserve , John-sucrose, Ages 12+ (Pfizer) 08/31/2021 Covid-19, Mrna, Lnp-s, Pf, B ivalent, 10 Mcg, IM, 5-11 yrs (Pfizer) 03/21/2022 Covid-19, Mrna, Lnp-s, Pf, B ivalent, 30 Mcg, IM, 12 yrs and above (DoNanza) 03/21/2022 Pneumococcal Conjugate Vacc, 13 Valent (Prevnar) [...] as of this encounter Progress Notes * Aiden Fong, DO - 06/04/2023 10:30 AM EST Goldie Bustillo [id number] INJECTION NOTE Goldie Ana Laura Bustillo is a 77 year old female who presents to [facility] for Bilateral trochanteric bursa injection Last injected 02/28/23 she got relief for approx 3 months Physical Exam General: in no acute distress Mood and Affect: normal Gait and Station: mildly antalgic Assessment and Plan: see procedure note f/u 3 months Greater trochanteric pain syndrome of both lower extremities (Primary) - POINT OF CARE US MAJOR JOINT INJECTION, ORTHO - lidocaine 1% 1 mL - triamcinolone acetonide 40 mg/mL 1 mL inj 2 mL - lidocaine 1% 1 mL - triamcinolone acetonide 40 mg/mL 1 mL inj 2 mL Aiden Fong DO Primary Care Sports Medicine [facility] [place] [address] Procedure note (trochanteric bursa), bilateral : Time [...] with ice and resolve within 24 hours. Aiden Fong DO documented in this encounter Nursing Notes * Librado Pena MED ASSIST - 06/04/2023 9:38 AM EST Follow up Patient Follow up: Hip Side: Bilateral Date of last visit: Improvement since last office visit: 0 percent. Prior Treatment: Injection Here for Test Results: No Goals for this appointment: troch inj documented in this encounter Miscellaneous Notes * Addendum Note - Librado Pena MED ASSIST - 06/04/2023 10:01 AM ESTAddended by: LIBRADO PENA on: 06/04/2023 10:01 AM Modules accepted: Orders documented in this encounter Plan of Treatment Upcoming Encounters Date Type Department Care Team (Late st Contact Info) Description 06/05/2023 10:30 AM EST Pharmacy Pharm[facility], [facility] [place] [address] [facility] [place] [address] 06/06/2023 10:00 AM EST Office Visit Orthopaedics [facility] [place] [address] Ramon Medel MD [address] [place] [phone] 06/14/2023 9:00 AM EST [facility] Visit [facility], [address] [place] [address] Brad Mcdowell PA-C [address] [place] [address] 06/26/2023 10:30 AM EST Imaging Vascular Lab, [address] 132 [facility] [place] [address] 06/26/2023 11:30 AM EST Imaging Vascular Lab, [address] 132 [facility] [place] [address] 07/04/2023 11:50 AM EST Office Visit Vascular Surgery, [facility] [address] [place] [address] Chucky Lea MD [address] [facility] [place] [address] 07/06/2023 2:30 PM EST [facility] Visit [facility] [address] [place] [address] Sindi See, ESTHER [address] [place] [address] 07/16/2023 10:30 AM EDT Nurse Only Ancillary [facility] [address] [place] [address] [facility], Nurse [facility] Wellness [facility] [address] [place] [address] 07/18/2023 10:40 AM EDT Office Visit Neurology [facility] 200 [facility] [place] [address] Juana Hewitt PA-C 200 [facility] [place] [address] 07/31/2023 8:40 AM EDT Office Visit [facility] [address] [place] [address] Naty Fang DO [address] [place] [address] 08/16/2023 10:15 AM EDT Office Visit Orthopaedics [facility] [address] [place] [address] Cristhian Cantrell PA-C [address] [place] [address] 09/24/2023 2:20 PM EDT Office Visit Dermatology [address] [place] [address] Rebeka Cannon PA-C [address] [place] [address] [place] [address] 10/17/2023 1:00 PM EDT Office Visit [facility] [address] [place] [address] Naty Fang, DO [address] [place] [address] 02/20/2024 2:40 PM EDT Office Visit Nephrology [address] [place] [address] Eileen Anderson MD 200 [facility] [place] [address] Pending Results Name Type Priority Associated Diagnoses Date /Time XR SHOULDER, 2 OR MORE VIEWS Medical Imaging STAT Status post fall 06/04/2023 10:15 AM EST XR HIP UNILAT 2-3 VIEWS INCLUDING AP PELVIS Medical Imaging STAT Status post fall 06/04/2023 10:15 AM EST XR RIBS UNILATERAL W/PA CHEST MINIMUM 3 VIEWS Medical Imaging STAT Status post fall 06/04/2023 10:15 AM EST Scheduled Orders Name Type Priority [...] Additional history exists CKD HGB USE SMARTSET 40264 04/03/202404/03, 04/03/2023, 02/26/2023, Additional history exists CKD PHOS USE SMARTSET 55884 04/03/202403/08, 12/08/2021, 10/28/2020, Additional history exists TSH 04/03/2024 04/03/2023, 08/2022, 01/04/2023, Additional history exists Diabetic Eye Exam 04/10/2024 04/10/2023, , 12/08/2021, Additional history exists DXA Scan 05/10/2026 05/10/2016, 09/23/2010 DTaP,Tdap,and Td Vaccines (3 - Td or Tdap) 02/22/2032 02/21/2022, 02/14/2012 Pneumococcal Vaccine: 65+ Years Completed 04/19/2017, 12/13/2015, 04/15/2007 Zoster Vaccines Completed 12/03/2018, 09/05, 05/15/2014 LUNG CANCER SCREENING - USE SMARTSET 16138 Completed 01/06/2022, 07/19/2018 Influenza Vaccine (FLU shot) Completed 10/2022, 02/21/2022, 01/28/2021, Additional history exists GARDASIL-HPV IMMUNIZATION SERIES Aged Out No longer eligible based on patient's age to complete this topic MENINGOCOCCAL (MENACTRA/MENVEO) Aged Out No longer eligible based on patient's age to complete this topic documented as of this encounter Medical Devices Implanted Type Area Flight Information Expediter Device Identifier Shelf Expiration Date Model / Serial / Lot Patch Xenosure [id number] - [id number] - [id number] Implanted:Qty : 1 on 02/20/2023 [place]ucky Lea [place] [facility]: Femoral Artery [facility] [id number] 10/01/2028 E0.8P8 / [id number] / [id number] documented as of this encounter Visit Diagnoses [...] Documents on File Type Date Recorded Patient Roller Picker Expl anation Advance Directives and Living Will 10/23/2016 ADVANCE DIRECTIVE FI VE WISHES Power of Sales Center Manager 10/23/2016 POWER OF A TTORNEY FIVE WISHES [...] Care Agent (per Health Care Power of Sales Center Manager document) Krystin Arreguin Adult Child Health Care Agen t (per Health Care Power of Sales Center Manager document) Care Teams Waterproofer Helper Relationship Specialty Start Date End Date Naty Fang DO [address] [place] [address] PCP - General Family Medicine 12/01/16 documented as of this encounter
--- OUTSIDE RECORDS SUMMARY | 2023-06-06 08:46 | External Medical Summary | Summary of Care ---
Author Name Unknown Organization [facility] Address [address] [place] [address] Phone [phone] Care Team Providers Care Statistics Teacher Name Role Phone Naty Fang DO Primary Care Provider [phone] Encounter Details Date Type Department Care Team (Late st Contact Info) Description 06/04/2023 Telephone [facility] 132 [place] [address] 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 Propoxyphene Napsylate Nausea/vomiting Low 01/24/20 00 documented [...] Oral Tablet (Ultram)Indications: PVD (peripheral vascular disease) ([facility]),Wound of lower extremity, unspecified laterality, subsequent encounter [...] complication, without long-term current use of insulin ([facility]) TAKE ONE TABLET BY MOUTH EVERY DAY 100 Tablet 0 05/01/2023 Active OXcarbazepine 300 MG Oral Tablet (Trileptal) TAKE ONE TABLET BY MOUTH TWICE DAILY 60 Tablet 5 06/01/2023 Active Eliquis 5 MG Oral Tablet (Apixaban)Indication s:Deep vein thrombosis (DVT) of distal vein of lower extremity, unspecified chronicity, unspecified laterality ([facility]) TAKE ONE TABLET BY MOUTH TWICE DAILY 60 Tablet 5 05/31/2023 Active OXcarbazepine 150 MG Oral Tablet (Trileptal) TAKE ONE TABLET BY MOUTH TWICE DAILY 60 Tablet 5 06/01/2023 Active Pentoxifylline ER 400 MG Oral Tablet Extended Release (TRENtal)Indications :PVD (peripheral vascular disease) ([facility]) TAKE ONE TABLET TWICE DAILY 60 Tablet [...] Carotid stenosis, asymptomatic, right 06/17/2019 History of [place] (myocardial infarction) 06/17/2019 Type 2 diabetes mellitus [...] years 01/29/2018 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 [address] [place] [address] [facility] [place] [address] 06/06/2023 10:00 AM EST Office Visit Orthopaedics [facility] [place] 132 [facility] [place] [address] Ramon Medel MD [address] [place] [address] 06/14/2023 9:00 AM EST [facility], [facility] 132 [facility] [place] [address] Brad Mcdowell PA-C [facility] [place] [address] 06/26/2023 10:30 AM EST Imaging Vascular Lab, [facility] 132 [facility] [place] [address] 06/26/2023 11:30 AM EST Imaging Vascular Lab, [address] 132 [facility] [place] [address] 07/04/2023 11:50 AM EST Office Visit Vascular Surgery, [facility] 132 [facility] [place] [address] Chucky Lea MD [address] [place] [address] 07/06/2023 2:30 PM EST [facility] Visit [facility], [facility] 132 [facility] [place] [address] Sindi See RN 132 [facility] [place] [address] 07/16/2023 10:30 AM EDT Nurse Only Ancillary [facility] 132 [facility] [place] [address] [facility], Nurse [facility] Wellness [facility] 132 [facility] [place] [address] 07/18/2023 10:40 AM EDT Office Visit Neurology [facility] [address] [place] [address] Juana Hewitt PA-C 200 [place] [address] 07/31/2023 8:40 AM EDT Office Visit [facility] [address] [place] [address] Naty Fang, DO [address] [place] [address] 08/16/2023 10:15 AM EDT Office Visit Orthopaedics [facility] [address] [place] [address] Cristhian Cantrell PA-C [address] [place] [address] 09/03/2023 10:15 AM EDT [facility] [address] [place] [address] Aiden Fong, DO [address] [place] [address] 09/24/2023 2:20 PM EDT Office Visit Dermatology [address] [place] [address] Rebeka Cannon PA-C [address] [place] [address] [place] [address] 10/17/2023 1:00 PM EDT Office Visit [facility] [address] [place] [address] Naty Fang, DO [address] [place] [address] 02/20/2024 2:40 PM EDT Office Visit Nephrology [address] [place], [place] [address] Eileen Anderson MD 200 [facility] [place], [place] [phone] Health Maintenance Due Date Last Done Comments [...] Additional history exists CKD HGB USE SMARTSET 47646 04/03/202404/03, 04/03/2023, 02/26/2023, Additional history exists CKD PHOS USE SMARTSET 17121 04/03/202403/08, 12/08/2021, 10/28/2020, Additional history exists TSH 04/03/2024 04/03/2023, 10/0 08/2022, 01/04/2023, Additional history exists Diabetic Eye Exam 04/10/2024 04/10/2023, , 12/08/2021, Additional history exists DXA Scan 05/10/2026 05/10/2016, 09/23/2010 DTaP,Tdap,and Td Vaccines (3 - Td or Tdap) 02/22/2032 02/21/2022, 02/14/2012 Pneumococcal Vaccine: 65+ Years Completed 04/19/2017, 12/13/2015, 04/15/2007 Zoster Vaccines Completed 12/03/2018, 09/05, 05/15/2014 LUNG CANCER SCREENING - USE SMARTSET 34582 Completed 01/06/2022, 07/19/2018 Influenza Vaccine (FLU shot) Completed 10/2022, 02/21/2022, 01/28/2021, Additional history exists GARDASIL-HPV IMMUNIZATION SERIES Aged Out No longer eligible based on patient's age to complete this topic MENINGOCOCCAL (MENACTRA/MENVEO) Aged Out No longer eligible based on patient's age to complete this topic documented as of this encounter Medical Devices Implanted Type Area Tree Trimmer Device Identifier Shelf Expiration Date Model / Serial / Lot Patch Xenosure [id number] - [id number] - [id number] Implanted:Qty : 1 on 02/20/2023 by Chucky Lea MD at [place] [facility] [place] Left: Femoral Artery [facility] [id number] 10/01/2028 E0.8P8 / [id number] / [id number] documented as of this encounter Advance Directives Documents on File Type Date Recorded Patient Clearance Representative Expl anation Advance Directives and Living Will 10/23/2016 ADVANCE DIRECTIVE FI VE WISHES Power of Lock Up Worker 10/23/2016 POWER OF A TTORNEY FIVE WISHES [...] Care Agent (per Health Care Power of Lock Up Worker document) Krystin Kallie Adult Child Health Care Agen t (per Health Care Power of Lock Up Worker document) Care Teams Statistics Teacher Relationship Specialty Start Date End Date Naty Fang DO [address] [place] [address] PCP - General Family Medicine 12/01/16 documented as of this encounter
--- OUTSIDE RECORDS SUMMARY | 2023-06-06 08:47 | External Medical Summary | Summary of Care ---
Author Name Unknown Organization [facility] Address [address] [facility] [place] [address] Phone [phone] Care Team Providers Care Debone Processing Supervisor Name Role Phone ChauNaty dempsey Primary Care Provider [phone] Reason for Visit * Reason Comments Follow Up Bilateral troch Encounter Details Date Type Department Care Team (Late st Contact Info) Description 06/04/2023 10:30 AM EST Office Visit Orthopaedics 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 Propoxyphene Napsylate Nausea/vomiting Low 01/24/20 00 documented [...] extremities 2 mL IJ ONCE 06/04/2023 06/04/2023 Active lidocaine 1% 1 mL - triamcinolone acetonide 40 mg/mL 1 mL inj 2 mLIndications:Greater trochanteric pain syndrome of both lower extremities 2 mL IJ ONCE 06/04/2023 06/04/2023 Active documented as of this encounter (statuses [...] Carotid stenosis, asymptomatic, right 06/17/2019 History of [place] (myocardial infarction) 06/17/2019 Type 2 diabetes mellitus [...] years 01/29/2018 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 Continue diabetic diet. Follows with [facility] pharmacy Hypertensive kidney disease with CKD [...] Impaired fasting glucose 12/2015 Coronary atherosclerosis of [place] coronary artery 07/03/2018 documented as of this encounter (statuses as of 06/04/2023) Immunizations Name Administration Dates Next Due COVID-19 mRNA, LNP-s, No Pre serve, 2-Dose Series (Boomr) 08/31/2021,02/10/2021,06/20/2020,05/30 COVID-19, LNP-s, No Preserve , John-sucrose, Ages 12+ (Pfizer) 08/31/2021 Covid-19, Mrna, Lnp-s, Pf, B ivalent, 10 Mcg, IM, 5-11 yrs (Pfizer) 03/21/2022 Covid-19, Mrna, Lnp-s, Pf, B ivalent, 30 Mcg, IM, 12 yrs and above (Boomr) 03/21/2022 Pneumococcal Conjugate Vacc, 13 Valent (Prevnar) [...] - 06/04/2023 10:30 AM EST Goldie Bustillo [id number] INJECTION NOTE Goldie Ana Laura Bustillo is a 77 year old female who presents to [facility] for Bilateral trochanteric bursa injection [...] Aiden Fong DO Primary Care Sports Medicine [facility] [place] [address] Procedure note (trochanteric bursa), bilateral [...] Team (Late st Contact Info) Description 06/04/2023 10:05 AM EST Imaging Radiology [address], [place] 132 [facility] [place] [address] Arrived 06/04/2023 10:10 AM EST Imaging Radiology [address], [place] 132 [facility] [place] [address] Arrived 06/04/2023 10:15 AM EST Imaging Radiology [address], [place] [facility] [place] [address] Arrived 06/05/2023 10:30 AM EST Pharmacy Pharmacy, [address] [place] [address] [facility] [address] [place] [address] 06/06/2023 10:00 AM EST Office Visit Orthopaedics [facility] 132 [facility] [place] [address] Ramon Medel MD [address] [place] [phone] 06/14/2023 9:00 AM EST Home Visit [facility] [address] [place] [address] Brad Mcdowell PA-C [address] [place] [address] 06/26/2023 10:30 AM EST Imaging Vascular Lab, [address] 132 [facility] [place] [address] 06/26/2023 11:30 AM EST Imaging Vascular Lab, [address], [place] 132 [facility] [place] [address] 07/04/2023 11:50 AM EST Office Visit Vascular Surgery, [facility] [place] [address] Chucky Lea MD [address] [place] [address] 07/06/2023 2:30 PM EST [facility], [facility] [address] [place] [address] Sindi See, ESTHER [address] [place] [address] 07/16/2023 10:30 AM EDT Nurse Only Ancillary [facility] [place] [address] [facility], Nurse [facility] 132 [facility] [place] [address] 07/18/2023 10:40 AM EDT Office Visit [facility] 200 [facility] [place] [address] Juana Hewitt PA-C 200 [facility] [place] [address] 07/31/2023 8:40 AM EDT Office Visit Family Practice [facility] [address] [place] [address] Naty Fang DO [address] [place] [address] 08/16/2023 10:15 AM EDT Office Visit Orthopaedics [facility] [address] [place] [address] Cristhian Cantrell PADeniseC [address] [place] [address] 09/24/2023 2:20 PM EDT Office Visit Dermatology [address] [place] [address] Rebeka Cannon PA-C [address] [place] [address] [place] [address] 10/17/2023 1:00 PM EDT Office Visit [facility] [address] [place] [address] Naty Fang DO [address] [place] [address] 02/20/2024 2:40 PM EDT Office Visit Nephrology [address] [place] [address] Eileen Anderson MD 200 [facility] [place] [address] Scheduled Orders Name Type Priority Associated Diagnoses Orde r Schedule POINT OF CARE US MAJOR JOINT INJECTION, ORTHO Medical Imaging Routine Greater trochanteric pain syndrome of both lower extremities Ordered: 06/04/2023 XR SHOULDER, 2 OR MORE VIEWS Medical Imaging STAT Status post fall Ordered: 06/04/2023 XR HIP UNILAT 2-3 VIEWS INCLUDING AP PELVIS Medical Imaging STAT Status post fall Ordered: 06/04/2023 XR RIBS UNILATERAL W/PA CHEST MINIMUM 3 VIEWS Medical Imaging STAT Status post fall Ordered: 06/04/2023 Health Maintenance Due Date Last [...] Additional history exists CKD HGB USE SMARTSET 65107 04/03/202404/03, 04/03/2023, 02/26/2023, Additional history exists CKD PHOS USE SMARTSET 53318 04/03/202403/08, 12/08/2021, 10/28/2020, Additional history exists TSH 04/03/2024 04/03/2023, 0 08/2022, 01/04/2023, Additional history exists Diabetic Eye Exam 04/10/2024 04/10/2023, , 12/08/2021, Additional history exists DXA Scan 05/10/2026 05/10/2016, 09/23/2010 DTaP,Tdap,and Td Vaccines (3 - Td or Tdap) 02/22/2032 02/21/2022, 02/14/2012 Pneumococcal Vaccine: 65+ Years Completed 04/19/2017, 12/13/2015, 04/15/2007 Zoster Vaccines Completed 12/03/2018, 09/05, 05/15/2014 LUNG CANCER SCREENING - USE SMARTSET 29414 Completed 01/06/2022, 07/19/2018 Influenza Vaccine (FLU shot) Completed 10/2022, 02/21/2022, 01/28/2021, Additional history exists GARDASIL-HPV IMMUNIZATION SERIES Aged Out No longer eligible based on patient's age to complete this topic MENINGOCOCCAL (MENACTRA/MENVEO) Aged Out No longer eligible based on patient's age to complete this topic documented as of this encounter Medical Devices Implanted Type Area Academic Coach Device Identifier Shelf Expiration Date Model / Serial / Lot Patch Xenosure [id number] - [id number] - [id number] Implanted:Qty : 1 on 02/20/2023 by Chucky Lea MD at [place] [facility] [place] Left: Femoral Artery [facility] [id number] 10/01/2028 E0.8P8 / [id number] / [id number] documented as of this encounter Visit Diagnoses Diagnosis Greater trochanteric pain syndrome of both lower extremities- Primary Status post fall Unspecified fall documented in this encounter Advance Directives Documents on File Type Date Recorded Patient Dispatcher Street Department Expl anation Advance Directives and Living Will 10/23/2016 ADVANCE DIRECTIVE FI VE WISHES Power of Supervisor Solder Making 10/23/2016 POWER OF A TTORNEY FIVE WISHES [...] Care Agent (per Health Care Power of Supervisor Solder Making document) Krystin Arreguin Adult Child Health Care Agen t (per Health Care Power of Supervisor Solder Making document) Care Teams Debone Processing Supervisor Relationship Specialty Start Date End Date Naty Fang DO [address] [place] [address] PCP - General Family Medicine 12/01/16 documented as of this encounter
--- OUTSIDE RECORDS SUMMARY | 2023-06-06 08:47 | External Medical Summary | Summary of Care ---
Author Name Unknown Organization [facility] Address [address] [facility] [place] [address] Phone [phone] Care Team Providers Care Automatic Machines Supervisor Name Role Phone ChauNaty dempsey Primary Care Provider [phone] Reason for Visit * Reason Comments Follow Up Bilateral troch Encounter Details Date Type Department Care Team (Late st Contact Info) Description 06/04/2023 10:30 AM EST Office Visit Orthopaedics [facility] [address] [place] [address] Aiden Fong DO [address] [place] [address] Greater trochanteric pain syndrome of both lower [...] Other reaction(s): 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 Continue diabetic diet. Follows with [facility] pharmacy Hypertensive kidney disease with [...] Impaired fasting glucose 12/2015 Coronary atherosclerosis of andreafski coronary artery 07/03/2018 documented as of this encounter (statuses as of 06/04/2023) Immunizations Name Administration Dates Next Due COVID-19 mRNA, LNP-s, No Pre serve, 2-Dose Series (Proformative) 08/31/2021,02/10/2021,06/20/2020,05/30 COVID-19, LNP-s, No Preserve , John-sucrose, Ages 12+ (Pfizer) 08/31/2021 Covid-19, Mrna, Lnp-s, Pf, B ivalent, 10 Mcg, IM, 5-11 yrs (Pfizer) 03/21/2022 Covid-19, Mrna, Lnp-s, Pf, B ivalent, 30 Mcg, IM, 12 yrs and above (Proformative) 03/21/2022 Pneumococcal Conjugate Vacc, 13 Valent (Prevnar) [...] - 06/04/2023 10:30 AM EST Goldie Bustillo [id number] INJECTION NOTE Goldie Ana Laura Bustillo is a 77 year old female who presents to [facility] for Bilateral trochanteric bursa [...] Aiden Fong DO Primary Care Sports Medicine [facility] [place] [address] Procedure note (trochanteric bursa), bilateral [...] Description 06/04/2023 10:05 AM EST Imaging Radiology [address], [place] [facility] [place] [address] Arrived 06/04/2023 10:10 AM EST Imaging Radiology [address], [place] [facility] [place] [address] Arrived 06/04/2023 10:15 AM EST Imaging Radiology [address], [place] [facility] [place] [address] Arrived 06/05/2023 10:30 AM EST Pharmacy Pharmacy, [address] [place] [address] [facility] [address] [place] [address] 06/06/2023 10:00 AM EST Office Visit Orthopaedics [facility] [place] [address] Ramon Medel MD [address] [place] [id number] 06/14/2023 9:00 AM EST Home Visit [facility] [address] [place] [address] Brad Mcdowell PA-C [address] [place] [address] 06/26/2023 10:30 AM EST Imaging Vascular Lab, [address] [facility] [place] [address] 06/26/2023 11:30 AM EST Imaging Vascular Lab, [address], [place] [facility] [place] [address] 07/04/2023 11:50 AM EST Office Visit Vascular Surgery, [facility] [place] [address] Chucky Lea MD [address] [place] [address] 07/06/2023 2:30 PM EST Home Visit [facility], [facility] [address] [place] [address] Sindi See, ESTHER [address] [place] [address] 07/16/2023 10:30 AM EDT Nurse Only Ancillary [facility] [place] [address] [facility], Nurse [facility] [address] [facility] [place] [address] 07/18/2023 10:40 AM EDT Office Visit Neurology [facility] [address] [facility] [place] [address] Juana Hewitt PA-C [address] [facility] [place] [address] 07/31/2023 8:40 AM EDT Office Visit Family Practice [facility] [address] [place] [address] Naty Fang DO [address] [place] [address] 08/16/2023 10:15 AM EDT Office Visit Orthopaedics [facility] [address] [place] [address] Cristhian Cantrell PADeniseC [address] [place] [address] 09/24/2023 2:20 PM EDT Office Visit Dermatology [address] [place] [address] Rebeka Cannon PA-C [address] [place] [address] [place] [address] 10/17/2023 1:00 PM EDT Office Visit [facility] [address] [place] [address] Naty Fang DO [address] [place] [address] 02/20/2024 2:40 PM EDT Office Visit Nephrology [address] [place] [address] Eileen Anderson MD [address] [facility] [place] [address] Scheduled Orders Name Type Priority Associated Diagnoses [...] Additional history exists CKD HGB USE SMARTSET 79087 04/03/202404/03, 04/03/2023, 02/26/2023, Additional history exists CKD PHOS USE SMARTSET 43378 04/03/202403/08, 12/08/2021, 10/28/2020, Additional history exists TSH 04/03/2024 04/03/2023, 0 08/2022, 01/04/2023, Additional history exists Diabetic Eye Exam 04/10/2024 04/10/2023, , 12/08/2021, Additional history exists DXA Scan 05/10/2026 05/10/2016, 09/23/2010 DTaP,Tdap,and Td Vaccines (3 - Td or Tdap) 02/22/2032 02/21/2022, 02/14/2012 Pneumococcal Vaccine: 65+ Years Completed 04/19/2017, 12/13/2015, 04/15/2007 Zoster Vaccines Completed 12/03/2018, 09/05, 05/15/2014 LUNG CANCER SCREENING - USE SMARTSET 08319 Completed 01/06/2022, 07/19/2018 Influenza Vaccine (FLU shot) Completed 10/2022, 02/21/2022, 01/28/2021, Additional history exists GARDASIL-HPV IMMUNIZATION SERIES Aged Out No longer eligible based on patient's age to complete this topic MENINGOCOCCAL (MENACTRA/MENVEO) Aged Out No longer eligible based on patient's age to complete this topic documented as of this encounter Medical Devices Implanted Type Area Base Ply Hand Device Identifier Shelf Expiration Date Model / Serial / Lot Patch Xenosure [id number] - [id number] - [id number] Implanted:Qty : 1 on 02/20/2023 by Chucky Lea MD at OR [facility] Left: Femoral Artery [facility] [employer] [facility] [id number] 10/01/2028 E0.8P8 / [id number] / [id number] documented as of this encounter Visit Diagnoses Diagnosis Greater trochanteric pain syndrome of both lower extremities- Primary Status post fall Unspecified fall documented in this encounter Advance Directives Documents on File Type Date Recorded Patient Harvest Crew Supervisor Expl anation Advance Directives and Living Will 10/23/2016 ADVANCE DIRECTIVE FI VE WISHES Power of Gearcase Assembler 10/23/2016 POWER OF A TTORNEY FIVE WISHES [...] Care Agent (per Health Care Power of Gearcase Assembler document) Krystin Arreguin Adult Child Health Care Agen t (per Health Care Power of Gearcase Assembler document) Care Teams Automatic Machines Supervisor Relationship Specialty Start Date End Date Naty Fang DO [address] [place] [address] PCP - General Family Medicine 12/01/16 documented as of this encounter
--- OUTSIDE RECORDS SUMMARY | 2023-06-06 08:47 | External Medical Summary | Summary of Care ---
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 Continue diabetic diet. Follows with [facility] pharmacy Hypertensive kidney disease with [...] Impaired fasting glucose 12/2015 Coronary atherosclerosis of hoopa coronary artery 07/03/2018 documented as of this encounter (statuses as of 06/04/2023) Immunizations Name Administration Dates Next Due COVID-19 mRNA, LNP-s, No Pre serve, 2-Dose Series (ZeniMax) 08/31/2021,02/10/2021,06/20/2020,05/30 COVID-19, LNP-s, No Preserve , John-sucrose, Ages 12+ (Pfizer) 08/31/2021 Covid-19, Mrna, Lnp-s, Pf, B ivalent, 10 Mcg, IM, 5-11 yrs (Pfizer) 03/21/2022 Covid-19, Mrna, Lnp-s, Pf, B ivalent, 30 Mcg, IM, 12 yrs and above (ZeniMax) 03/21/2022 Pneumococcal Conjugate Vacc, 13 Valent (Prevnar) [...] - 06/04/2023 10:30 AM EST Goldie Bustillo [id number] INJECTION NOTE Goldie Ana Laura Bustillo is a 77 year old female who presents to [facility] for Bilateral trochanteric bursa injection [...] Sports Medicine [facility] [place] [address] Procedure note (trochanteric bursa), bilateral [...] Team (Late st Contact Info) Description 06/04/2023 10:15 AM EST Imaging Radiology [facility] [address] [facility] [place] [address] Arrived 06/05/2023 10:30 AM EST Pharmacy Pharmacy, [address] [place] [address] [facility] [address] [place] [address] 06/06/2023 10:00 AM EST Office Visit Orthopaedics [facility] [address] [facility] [place] [address] Ramon Medel MD [address] [place] [id number] 06/14/2023 9:00 AM EST [facility] [place] [address] [place] [address] Brad Mcdowell PA-C [address] [place] [address] 06/26/2023 10:30 AM EST Imaging Vascular Lab, [address] [facility] [place] [address] 06/26/2023 11:30 AM EST Imaging Vascular Lab, [address] [facility] [place] [address] 07/04/2023 11:50 AM EST Office Visit Vascular Surgery, [facility] [address] [facility] [place] [address] [facility] [address] [facility] [address] 07/06/2023 2:30 PM EST Home Visit [facility], [facility] [address] [place] [address] Sindi See, ESTHER [address] [place] [address] 07/16/2023 10:30 AM EDT Nurse Only Ancillary [facility] [address] [facility] [place] [address] [facility], Nurse Annual Wellness [facility] [place] [address] 07/18/2023 10:40 AM EDT Office Visit Neurology [facility] [place] [address] Juana Hewitt PA-C [address] [facility] [place] [address] 07/31/2023 8:40 AM EDT Office Visit Family Practice [facility] [address] [place] [address] Naty Fang DO [address] [place] [address] 08/16/2023 10:15 AM EDT Office Visit [facility]opaedics [facility] [place] [address] Cristhian Cantrell PA-C [address] [place] [address] 09/24/2023 2:20 PM EDT Office Visit Dermatology [address] [place] [address] Rebeka Cannon PA-C [address] [place] [address] [place] [address] 10/17/2023 1:00 PM EDT Office Visit Family [facility] [address] [place] [address] Naty Fang DO [address] [place] [address] 02/20/2024 2:40 PM EDT Office Visit Nephrology [address] [place] [address] Eileen Anderson MD [address] [place] [address] Scheduled Orders Name Type Priority Associated Diagnoses [...] 02/23/2023, Additional history exists B-12 04/03/2024 04/03/2023, 08/2022, 01/04/2023, Additional history exists CKD HGB USE SMARTSET 40157 04/03/202404/03, 04/03/2023, 02/26/2023, Additional history exists CKD PHOS USE SMARTSET 68329 04/03/202403/08, 12/08/2021, 10/28/2020, Additional history exists TSH 04/03/2024 04/03/2023, 08/2022, 01/04/2023, Additional history exists Diabetic Eye Exam 04/10/2024 04/10/2023, , 12/08/2021, Additional history exists DXA Scan 05/10/2026 05/10/2016, 09/23/2010 DTaP,Tdap,and Td Vaccines (3 - Td or Tdap) 02/22/2032 02/21/2022, 02/14/2012 Pneumococcal Vaccine: 65+ Years Completed 04/19/2017, 12/13/2015, 04/15/2007 Zoster Vaccines Completed 12/03/2018, 09/05, 05/15/2014 LUNG CANCER SCREENING - USE SMARTSET 19013 Completed 01/06/2022, 07/19/2018 Influenza Vaccine (FLU shot) Completed 10/2022, 02/21/2022, 01/28/2021, Additional history exists GARDASIL-HPV IMMUNIZATION SERIES Aged Out No longer eligible based on patient's age to complete this topic MENINGOCOCCAL (MENACTRA/MENVEO) Aged Out No longer eligible based on patient's age to complete this topic documented as of this encounter Medical Devices Implanted Type Area Cuffing Machine Operator Device Identifier Shelf Expiration Date Model / Serial / Lot Patch Xenosure [id number] - [id number] - [id number] Implanted:Qty : 1 on 02/20/2023 by Chucky Lea MD at OR [facility] Left: Femoral Artery [facility] [id number] 10/01/2028 E0.8P8 / [id number] / [id number] documented as of this encounter Visit Diagnoses Diagnosis Greater trochanteric pain syndrome of both lower extremities- Primary Status post fall Unspecified fall documented in this encounter Advance Directives Documents on File Type Date Recorded Patient Pupil Personnel Services Director Expl anation Advance Directives and Living Will 10/23/2016 ADVANCE DIRECTIVE FI VE WISHES Power of Plant Tender 10/23/2016 POWER OF A TTORNEY FIVE WISHES [...] Care Agent (per Health Care Power of Plant Tender document) Krystin Arreguin Adult Child Health Care Agen t (per Health Care Power of Plant Tender document) Care Teams Fructose Loader Relationship Specialty Start Date End Date Naty Fang DO [address] [place] [address] PCP - General Family Medicine 12/01/16 documented as of this encounter
--- OUTSIDE RECORDS SUMMARY | 2023-06-06 08:48 | External Medical Summary | Summary of Care ---
Author Name Unknown Organization [facility] Address [address] [place] [address] Phone [phone] Care Team Providers Care Refined Syrup Operator Name Role Phone AnnalisaNaty Yasmin HERNANDES Primary Care Provider [phone] Reason for Referral * Evaluate & Treat - Unlimited Visits (Within 10 days (routine)) - Authorized Specialty Diagnoses / Procedures Referred By Moris connor Referred To Contact Orthopaedic Surgery / Orthopedics Diagnoses Acute pain of left shoulder due to trauma Huong Foreman CRNP [address] [place] [address] Referral ID Status Reason Start Date Expiration Date Visits Requested Visits Authorized [id number] Authorized Specialty Services Required 06/01/2023 999 999 Question Answer Referral Priority Within 10 days (routine) Where should this appointment be scheduled? [facility] What body part is the patient being seen for? Shoulder What condition is the patient being seen for? Arthritis including related infection Comments Acute on chronic shoulder pain s/p trauma. Wants to talk about shoulder surgery Reason for Visit * Reason Comments Follow Up Patient presents in office today for a 3m follow-up visit. 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); Dyslipidemia, goal LDL below 70; Deep vein thrombosis (DVT) of distal vein of lower extremity, unspecified chronicity, unspecified laterality ([facility]); Gastroesophageal reflux disease without esophagitis Allergies Active Allergy Reactions Criticality Noted Date [...] Other reaction(s): 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 60 Tablet 3 01/31/2023 Active OXcarbazepine 300 MG Oral Tablet (Trileptal)Indicatio ns:takes in addition to the 150mg ywi=345 mg twice daily Take 1 Tablet by mouth in the morning and 1 Tablet before bedtime. 60 Tablet 3 01/31/2023 Active Metoprolol Succinate ER 25 MG Oral Tablet [...] EVERY DAY 100 Tablet 0 05/01/2023 Active Vitamin B-12 1000 MCG Oral Tablet (Cyanocobalamin) TAKE ONE TABLET IN THE MORNING 30 Tablet 0 05/01/2023 Active Eliquis 5 MG Oral Tablet (Apixaban)Indication s:Deep vein thrombosis (DVT) of distal vein of lower extremity, unspecified chronicity, unspecified laterality (HCC) TAKE ONE TABLET BY MOUTH TWICE DAILY 60 Tablet 5 05/31/2023 Active Pentoxifylline ER 400 MG Oral Tablet Extended Release (TRENtal)Indications :PVD (peripheral vascular disease) ([facility]) TAKE ONE TABLET TWICE DAILY 60 Tablet 5 05/31/2023 Active Folic Acid 1 MG Oral Tablet TAKE ONE TABLET IN THE MORNING 30 Tablet 5 05/31/2023 Active documented as of this encounter (statuses as of 06/01/2023) Active Problems Problem Noted Date Diagnosed Date [...] Carotid stenosis, asymptomatic, right 06/17/2019 History of MO (myocardial infarction) 06/17/2019 Type 2 diabetes mellitus [...] years 01/29/2018 Atherosclerotic heart diseas e of burns paiute coronary artery with unspecified angina pectoris 09/13/2017 [...] L2-S1 stenosis S/P L2-5 Laminectomy, L4-5 PLIF, L2-[id number] w PSF- Jan 2011 Juxtafusion deg L1-2 w stenosis Cerebrovascular disease, arteriosclerotic, post- stroke Osteoarthrosis involving multiple sites but not generalized Overview: S/P B TKR- Jun 2011 Dr Bertram Guerrero knee arthroscopy- 2014 Cervical spinal stenosis Overview: S/P C3-[address] Jun [address] Oneal Segovia C3-6 PSF Residual myelopathy documented as of this encounter (statuses as of 06/01/2023) Resolved Problems Problem Noted Date Diagnosed Date [...] Impaired fasting glucose 12/2015 Coronary atherosclerosis of burns pai[place] coronary artery 07/03/2018 documented as of this encounter (statuses as of 06/01/2023) Immunizations Name Administration Dates Next Due COVID-19 mRNA, LNP-s, No Pre serve, 2-Dose Series (Crowdlinker) 08/31/2021,02/10/2021,06/20/2020,05/30 COVID-19, LNP-s, No Preserve , John-sucrose, [...] on file documented as of this encounter Last Filed Vital Signs Vital Sign Reading Time Taken Comments Blood Pressure 130/68 06/01/2023 9:35 AM EST Pulse 69 06/01/2023 9:35 AM EST Temperature - - Respiratory Rate 16 06/01/2023 9:35 AM EST Oxygen Saturation 99% 06/01/2023 9:35 AM EST Inhaled Oxygen Concentration - - Weight - - Height 147.3 cm (4' 10") 06/01/2023 9:35 AM EST Body Mass Index - - documented in this encounter Functional Status Functional Status Response Date of Assess ment Do you have serious difficul ty walking or climbing stairs? (5 years old or older) Yes 02/21/2023 documented as of this encounter Progress Notes * Huong Foreman CRNP - 06/01/2023 9:42 AM EST Follow up Family Medicine Visit CC: Chief Complaint Patient presents with Follow Up Patient presents in office today for a 3m follow-up visit. History of Present Illness: Goldie Bustillo is a 77 year old female presenting for ERfollow up. She was seen at [facility] for fall on 05/28/2023. CT of head, neck, chest, abd and pelvis unremarkable. She notes that she fell 2 days ago. She was putting something away in a cabinet. Felll and hit headand landed on her left shoulder. Shoulder is hurting worse. Denies redness or bruising. Fell onto abox of stuff on floor. LAB- hgb IMPROVED TO 10.9 IMPROVED FROM BASELINE. 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 Tobacco Use Smoking status: Former Packs/day: 0.50 Years: 40.00 Additional pack years: 0.00 Total pack years: 20.00 Types: Cigarettes Quit date: 05/07/2010 Years since quittin.0 Smokeless tobacco: Never Vaping Use Vaping Use: Never used Substance and Sexual Activity Alcohol use: No Drug use: No Sexual activity: Not Currently Partners: Male Other Topics Concern Service No Blood Transfusions No Caffeine Concern Yes Occupational Exposure No Hobby Hazards No Sleep Concern Yes Stress Concern Yes Weight Concern Yes Special Diet Yes Back Care No Exercise No Bike Helmet Not Asked Seat Belt Yes Self-Exams Yes Social History Narrative Lives alone Retired Social Determinants of Health Financial Resource Strain: Not on file Food Insecurity: No Food Insecurity (07/10/2022) Hunger Vital Sign Worried About Running Out of Food in the Last Year: Never true Ran Out of Food in the Last Year: Never true Transportation Needs: Not on file Physical Activity: Not on file Stress: Not on file Social Connections: Not on file Intimate Partner Violence: Not on file Housing Stability: Not on file PMH: Past Medical History: Diagnosis Date Adult body mass index 40.0-44.9 08/31/2010 Benign neoplasm of colon 01/27/09 hyperplastic & adenomatous Carpal tunnel syndrome 01/07 left Cerebrovascular disease, arteriosclerotic, post-stroke [address] scan Certain sequelae of myocardial infarction 11/21/10 Cervical spinal stenosis 12/28/08 Coronary atherosclerosis of burns paiute coronary artery Degeneration of cervical intervertebral disc Degeneration of lumbosacral intervertebral disc Esophageal reflux 04/20/2009 Fatty liver HTN, goal below 130/80 04/13/2009 Impaired fasting glucose 07/26/09 Metabolic syndrome 12/13/2010 Mixed dyslipidemia 2004 Osteoarthrosis involving multiple sites but not generalized Other forms of migraine, without mention of intractable migraine without mention of status migrainosus 10/11/2010 Other specified acquired hypothyroidism 1990s Plantar fibromatosis 08/31/2010 Rotator cuff syndrome 08/31/2010 S/P cervical spinal fusion 06/20/2016 Past Surgical History: Procedure Laterality Date ARTHROPLASTY KNEE TOTAL Bilateral 2011 dr mckeon CARDIAC CATH SCANNED RESULT 11/21/2010 [facility], non ST wave elevation MO with RCA culprit stenosis and LAD lesion CARPAL TUNNEL SURGERY 1994, 2002 CARPAL TUNNEL SURGERY 01/2003 left CARPAL TUNNEL SURGERY Right 10/13/2022 NEUROPLASTY MEDIAN NERVE AT CARPAL TUNNEL performed by Everett Grant, at OR [facility] COLONOSCOPY W/ BIOPSY (RECTUM) 01/27/2009 multiple small polyps & diverticulosis - Dr. Lucero- hyperplastic and adenomatous COLONOSCOPY, DIAGNOSTIC (RECTUM) 02/27/2018 adenomatous polyp, diverticulosis/COLONOSCOPY FLEXIBLE PROXIMAL DIAGNOSTIC performed by Chad Boyd MD at ENDOSCOPY [facility] DECOMPRESS POSTERIOR TIBIAL NERVE 1979 right foot DOPPLER ECHO EXAM OF HEART,COMPLETE 11/21/2010 LVEF 55-60%, inferior base segment hypokinesis, [facility] EGD, FLEXIBLE, DIAGNOSTIC 10/30/2018 gastritis, hiatal hernia/ESOPHAGOGASTRODUODENOSCOPY (EGD), FLEXIBLE, TRANSORAL, DIAGNOSTIC performed by Chad Boyd MD at ENDOSCOPY [facility] ENDART COMMON FEMORAL Left 02/20/2023 COMMON FEMORAL ENDARTERECTOMY performed by Chucky Lea MD at OR [facility] LIGATE/CUT OVIDUCT(S) 1999 NECK SPINE FUSION (CERV, BELOW C2) 06/20/2016 Juliette--C3-6 laminectomies; fusion C3-C6 PLACE INTRACORONARY STENT, FIRST VS 11/21/2010 RCA, LAD, [facility] REMOVAL OF OVARY/OVIDUCT(S) 1999 bilateral REMOVE CATARACT, INSERT LENS PROSTH 2000 Cataract Removal w/ IOL-intracapsular REPAIR OF BLADDER NECK 1999 SACROILIAC JOINT INJECT W/GUIDANCE 03/29/2016 INJECTION SACROILIAC JOINT performed by Quoc Cosby, DO at OR [facility] SACROILIAC JOINT INJECT W/GUIDANCE 08/27/2017 INJECTION SACROILIAC JOINT performed by Quoc Carrascos, DO at OR [facility] SACROILIAC JOINT INJECT W/GUIDANCE 10/18/2017 INJECTION SACROILIAC JOINT performed by Quoc Frank Cosby, DO at OR [facility] SHOULDER ARTHROSCOPY/DEBRIDEMENT right shoulder - [place] SPINAL FUSION, LUMBAR, COMBINED 2011 dr segovia in 2011 SYNTH BYPASS, FEM-TIB/PER Left 02/20/2023 BYPASS GRAFT OTHER THAN VEIN FEMORAL ANTERIOR TIBIAL performed by Chucky Lea MD at OR [facility] TOTAL ABD HYSTERECTOMY W/WO REMOVAL OF TUBE(S) 1999 no cancer Outpatient Medications Marked as Taking for the 06/01/23 encounter (Office Visit) with Huong Foreman CRNP Medication Sig Eliquis 5 MG Oral Tablet (Apixaban) TAKE ONE TABLET BY MOUTH TWICE DAILY Folic Acid 1 MG Oral Tablet TAKE ONE TABLET IN THE MORNING Pentoxifylline ER 400 MG Oral Tablet Extended Release (TRENtal) TAKE ONE TABLET TWICE DAILY Ezetimibe 10 MG Oral Tablet (Zetia) TAKE ONE TABLET BY MOUTH EVERY DAY Vitamin B-12 1000 MCG Oral Tablet (Cyanocobalamin) TAKE ONE TABLET IN THE MORNING Vitamin B-6 100 MG Oral Tablet (vitamin B-6) take 2&1/2 tablets at noon (250 mg unavailable) traMADol HCl 50 MG Oral Tablet (Ultram) Take 1 Tablet by mouth every 6 hours as needed for Pain, Severe. Benefiber Oral Tablet Chewable Take by mouth. Vitamin D (Cholecalciferol) 25 MCG (1000 UT) Oral Capsule Take 1 Capsule by mouth in the morning. Metoprolol Succinate ER 25 MG Oral Tablet Extended Release 24 Hour (toPROL XL) Take 1 Tablet by mouth in the morning and 1 Tablet before bedtime. Gabapentin 100 MG Oral Capsule (Neurontin) Take one tablet by mouth at bedtime for 7 days, then onetablet twice a day for 7 day, and then one tablet three times a day (Patient taking differently: Take 1 Capsule by mouth in the morning and 1 Capsule at noon and 1 Capsule before bedtime. Take one capsule three times a day.) Levothyroxine Sodium 112 MCG Oral Tablet (Levoxyl) Take 1 Tablet by mouth daily first thing in the morning. OXcarbazepine 150 MG Oral Tablet (Trileptal) Take 1 Tablet by mouth in the morning and 1 Tablet before bedtime. OXcarbazepine 300 MG Oral Tablet (Trileptal) Take 1 Tablet by mouth in the morning and 1 Tablet before bedtime. Atorvastatin Calcium 80 MG Oral Tablet (Lipitor) TAKE ONE TABLET BY MOUTH EVERY DAY. Furosemide 20 MG Oral Tablet (Lasix) Take 1.5 Tablets by mouth in the morning. Icosapent Ethyl 1 GM Oral Capsule (Vascepa) TAKE TWO CAPSULES BY MOUTH TWICE A DAY WITH MORNING ANDEVENING MEALS - SWALLOW CAPSULES WHOLE - DO NOT OPEN OR BREAK Omeprazole 40 MG Oral Capsule Delayed Release (PriLOSEC) TAKE 1 CAPSULE BY MOUTH DAILY, 1 HOUR BEFORE THE FIRST MEAL OF THE DAY. Topiramate 100 MG Oral Tablet (topAMAX) TAKE 1 TABLET BY MOUTH 4 TIMES A DAY Magnesium Chloride 64 MG Oral Tablet Delayed Release Take 2 Tablets by mouth in the morning and 2 Tablets in the evening. Betamethasone Dipropionate 0.05 % External Ointment Apply 2x daily (or more if itchy instead of scratching) to hand rash until resolved-see printed sheet Acetaminophen 325 MG CAPS Take by mouth 2 Tablets every 6 hours as needed for Pain, Mild. Aspirin 81 MG Tablet Take 1 Tab by mouth daily. 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 Diclofenac Sodium Nausea/vomiting Amitriptyline Other reaction(s): PT UNSURE OF RXN Augmentin [Amoxicillin-Pot Clavulanate] Other (Please comment) Contributed to nausea and vomiting Codeine pruritis Baclofen Nausea/vomiting Capsaicin Other reaction(s): disoriented nausea Dipyridamole Tachycardia persantine stress test Propoxyphene Napsylate Nausea/vomiting Most Recent Immunizations Administered Date(s) Administered COVID-19 mRNA, LNP-s, No Preserve, 2-Dose Series (Crowdlinker) 08/31/2021 COVID-19, LNP-s, No Preserve, John-sucrose, Ages 12+ (Crowdlinker) 08/31/2021 Covid-19, Mrna, Lnp-s, Pf, Bivalent, 10 Mcg, IM, 5-11 yrs (Pfizer) 03/21/2022 Covid-19, Mrna, Lnp-s, Pf, Bivalent, 30 Mcg, IM, 12 yrs and above (Crowdlinker) 03/21/2022 Pneumococcal Conjugate Vacc, 13 Valent (Prevnar) 12/13/2015 Pneumococcal Polysaccharide PPV23 (Pneumovax) 04/19/2017 Season Influenza, Quad, PF, Adjuvanted, 65+ Yrs, IM (FLUAD) 03/05/2020 Seasonal Influenza, PF, 6 M & above, IM , (FluLaval or Fluzone) 02/13/2019 Seasonal Influenza, Quadrivalent Hd (Fluzone Hd) 02/09/2023 Seasonal Influenza, Quadrivalent, No Preserve, IM 03/27/2016 Seasonal Influenza, Split, IIV3, With Preserve, Inj 01/19/2014 TDAP (age 10 and older)(Boostrix) 02/21/2022 Varicella Zoster Vaccine (Adult) 05/15/2014 Zoster Vaccine Recombinant (Shingrix) 12/03/2018 Review of Systems: Review of Systems Constitutional: Negative for fatigue and fever. Respiratory: Negative for shortness of breath and stridor. Cardiovascular: Positive for leg swelling. AT BASELINE Musculoskeletal: Positive for arthralgias. Shoulder pain increased due to trauma Neurological: Positive for headaches. Physical Exam: BP 130/68 | Pulse 69 | Resp 16 | Ht 1.473 m (4' 10") | SpO2 99% | BMI 33.54 kg/m | BSA 1.73 m Physical Exam HENT: Head: Normocephalic. Eyes: Pupils: Pupils are equal, round, and reactive to light. Cardiovascular: Rate and Rhythm: Normal rate. Pulmonary: Effort: Pulmonary effort is normal. Breath sounds: Examination of the right-lower field reveals decreased breath sounds. Examination ofthe left-lower field reveals decreased breath sounds. Decreased breath sounds present. Abdominal: General: Bowel sounds are normal. Palpations: Abdomen is soft. Tenderness: There is no abdominal tenderness. Musculoskeletal: Left shoulder: Tenderness and bony tenderness present. No swelling. Decreased range of motion. Cervical back: Normal range of motion. Right lower le+ Edema present. Left lower le+ Edema present. Neurological: General: No focal deficit present. Mental Status: She is alert and oriented to person, place, and time. Psychiatric: Mood and Affect: Mood normal. Behavior: Behavior normal. Thought Content: Thought content normal. Judgment: Judgment normal. Assessment and Plan: 1. Fall, initial encounter S/p fall while reaching to get an object Landed on left shoulder and hit head S/p ED visit CT of head, abd, pelvis and chest all clear 2. Acute pain of left shoulder due to trauma Acute on chronic secondary to fall Back to ortho R/p fracture - XR SHOULDER, 2 OR MORE VIEWS - ORTHOPAEDICS REFERRAL OP 3. Type 2 diabetes mellitus with peripheral vascular disease (HCC) 4. Neck pain Increased since fall C SPINE NEGATIVE 5. Hypertensive kidney disease with stage 3b chronic kidney disease (HCC) Renal function reduced but stable 6. Major depressive disorder with single episode, in partial remission (HCC) stable 7. Chronic ischemic heart disease stable 8. Hypothyroidism, unspecified type stable 9. 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 Dyslipidemia, goal LDL below 70 11. Deep vein thrombosis (DVT) of distal vein of lower extremity, unspecified chronicity, unspecified laterality (HCC) On chronic eliquis 12. Gastroesophageal reflux disease without esophagitis stable I have advised the patient to call our office incase of any worsening or new symptoms. I spent a total of 40-54 minutes (exact time 40 mins) on the date of service in preparation, delivery, and documentation of the care provided to Goldie Bustillo excluding any time spent in the performance of separately billed services. Erinn, BAILEE, BECK [facility] Medicine documented in this encounter Nursing Notes * Veronica Watt MED ASSIST - 06/01/2023 9:33 AM EST The patient has been properly identified by confirmation of name and date of . Chief Complaint Patient presents with Follow Up Patient presents in office today for a 3m follow-up visit. documented in this encounter Plan of Treatment Upcoming Encounters Date Type Department Care Team (Late st Contact Info) Description 06/04/2023 10:30 AM EST Office Visit Orthopaedics [facility] [address] [place] [address] Aiden Fong DO [address] [place] [address] 06/05/2023 10:30 AM EST Pharmacy Pharmacy, [facility] [address] [place] [address] [facility] [address] [place] [address] 06/06/2023 10:00 AM EST Office Visit Orthopaedics [facility] [address] [place] [address] Ramon Medel MD [address] [place] [id number] 06/14/2023 9:00 AM EST Home Visit [facility], [facility] [address] [facility] [place], [place] [address] Brad Mcdowell PA-C [address] [place] [address] 06/26/2023 10:30 AM EST Imaging Vascular Lab, [facility] [address] [facility], [place] [address] [facility] [place] [address] 06/26/2023 11:30 AM EST Imaging Vascular Lab, [facility] [address] [facility], [place] [address] [facility] [place] [address] 07/04/2023 11:50 AM EST Office Visit Vascular Surgery, [facility] [address] [facility] [place] [address] Chucky Lea MD [address] [place] [address] 07/06/2023 2:30 PM EST Home Visit [facility], [facility] [address] [place] [address] Sindi See RN [address] [facility] [place] [address] 07/16/2023 10:30 AM EDT Nurse Only Ancillary [facility] [address] [facility] [place] [address] [facility], Nurse Annual Wellness [facility] [address] [facility] [place] [address] 07/18/2023 10:40 AM EDT [facility] [address] [facility] [place] [address] Juana Hewitt PA-C [address] [place] [address] 07/31/2023 8:40 AM EDT Office Visit [facility] [address] [place] [address] Naty Fang, DO [address] [place] [address] 08/16/2023 10:15 AM EDT Office Visit Orthopaedics [facility] [address] [place] [address] Cristhian Cantrell PA-C [address] [place] [address] 09/24/2023 2:20 PM EDT Office Visit Dermatology [address] [place] [address] Rebeka Cannon PA-C [address] [place] [address] [place] [address] 10/17/2023 1:00 PM EDT Office Visit [facility] [address] [place] [address] Naty Fang, DO [address] [place] [address] 02/20/2024 2:40 PM EDT Office Visit Nephrology [address] [place] [address] Eileen Anderson MD [address] [facility] [place] [address] Pending Results Name Type Priority Associated Diagnoses Date /Time XR SHOULDER, 2 OR MORE VIEWS Medical Imaging STAT Acute pain of left shoulder due to trauma 06/01/2023 10:20 AM EST Scheduled Referrals Name Type Priority Associated Diagnoses Order Schedule ORTHOPAEDICS REFERRAL OP Referral Within 10 days (routine) Acute pain of left shoulder due to trauma Ordered: 06/01/2023 Health Maintenance Due Date Last Done Comments [...] Additional history exists CKD HGB USE SMARTSET 24231 04/03/202404/03, 04/03/2023, 02/26/2023, Additional history exists CKD PHOS USE SMARTSET 05709 04/03/202403/08, 12/08/2021, 10/28/2020, Additional history exists TSH 04/03/2024 04/03/2023, 100 08/2022, 01/04/2023, Additional history exists Diabetic Eye Exam 04/10/2024 04/10/2023, , 12/08/2021, Additional history exists DXA Scan 05/10/2026 05/10/2016, 09/23/2010 DTaP,Tdap,and Td Vaccines (3 - Td or Tdap) 02/22/2032 02/21/2022, 02/14/2012 Pneumococcal Vaccine: 65+ Years Completed 04/19/2017, 12/13/2015, 04/15/2007 Zoster Vaccines Completed 12/03/2018, 09/05, 05/15/2014 LUNG CANCER SCREENING - USE SMARTSET 21662 Completed 01/06/2022, 07/19/2018 Influenza Vaccine (FLU shot) Completed 10/2022, 02/21/2022, 01/28/2021, Additional history exists GARDASIL-HPV IMMUNIZATION SERIES Aged Out No longer eligible based on patient's age to complete this topic MENINGOCOCCAL (MENACTRA/MENVEO) Aged Out No longer eligible based on patient's age to complete this topic documented as of this encounter Medical Devices Implanted Type Area Patch Sander Device Identifier Shelf Expiration Date Model / Serial / Lot Patch Xenosure [id number] - [id number] - [id number] Implanted:Qty : 1 on 02/20/2023 by Chucky Lea MD at OR [facility] Left: Femoral Artery [employer] [id number] 10/01/2028 E0.8P8 / [id number] / [id number] documented as of this encounter Visit Diagnoses Diagnosis Fall, initial encounter- Primary Acute pain of left shoulder due to trauma Type 2 diabetes mellitus with peripheral vascular disease (HCC) Neck pain Cervicalgia Hypertensive kidney disease with stage 3b chronic kidney disease (HCC) Major depressive disorder with single episode, in partial remission (HCC) Chronic ischemic heart disease Chronic ischemic heart disease, unspecified Hypothyroidism, unspecified type 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 Dyslipidemia, goal LDL below 70 Other and unspecified hyperlipidemia Deep vein thrombosis (DVT) of distal vein of lower extremity, unspecified chronicity, unspecified laterality (HCC) Gastroesophageal reflux disease without esophagitis Esophageal reflux documented in this encounter Advance Directives Documents on File Type Date Recorded 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
--- OUTSIDE RECORDS SUMMARY | 2023-06-06 08:48 | External Medical Summary | Summary of Care ---
Author Name Unknown Organization [facility] Address [address] [place] [address] Phone [phone] Care Team Providers Care Mechanical Systems Designer Name Role Phone Maribel Fang DO Primary Care Provider [phone] Reason for Visit * Reason Comments eRx-Medication Refill Encounter Details Date Type Department Care Team (Late st Contact Info) Description 05/31/2023 Refill Family Practice [facility] [address] [place] [address] Maribel Fang DO [address] [facility] [place] [address] Deep vein thrombosis (DVT) of distal vein of lower extremity, unspecified chronicity, unspecified laterality (HCC); PVD (peripheral vascular disease) ([facility]) Allergies Active Allergy Reactions Criticality Noted Date [...] Other reaction(s): NOT 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 90 Tab 3 8 Active Acetaminophen 325 MG CAPSIndications:jr n Take by mouth 2 Tablets every 6 hours as needed for Pain, Mild. 0 Active Betamethasone Dipropionate 0.05 % External OintmentIndications :H/O dermatitis Apply 2x daily (or more if itchy instead of scratching) to hand rash until resolved-see printed sheet 50 g 0 2 Active Magnesium Chloride 64 MG Oral Tablet Delayed Release Take 2 Tablets by mouth in the morning and 2 Tablets in the evening. 0 Active Topiramate 100 MG Oral Tablet (topAMAX) TAKE 1 TABLET BY MOUTH 4 TIMES A DAY 360 Tablet 1 3 Active Omeprazole 40 MG Oral Capsule Delayed Release (PriLOSEC)Indicatio ns:Gastroesophageal reflux disease without esophagitis TAKE 1 CAPSULE BY MOUTH DAILY, 1 HOUR BEFORE THE FIRST MEAL OF THE DAY. 100 Capsule 1 3 Active Furosemide 20 MG Oral Tablet (Lasix)Indications: take 2nd dose of the day at least 4 hours after the first. Take 1.5 Tablets by mouth in the morning. 45 Tablet 5 3 Active Atorvastatin Calcium 80 MG Oral Tablet (Lipitor)Indication s:Dyslipidemia, goal LDL below 70 TAKE ONE TABLET BY MOUTH EVERY DAY. 100 Tablet 3 3 Active Icosapent Ethyl 1 GM Oral Capsule (Vascepa)Indication s:Dyslipidemia, goal LDL below 70 TAKE TWO CAPSULES BY MOUTH TWICE A DAY WITH MORNING AND EVENING MEALS - SWALLOW CAPSULES WHOLE - DO NOT OPEN OR BREAK 360 Capsule 1 3 Active Levothyroxine Sodium 112 MCG Oral Tablet (Levoxyl)Indication s:Acquired hypothyroidism Take 1 Tablet by mouth daily first thing in the morning. 90 Tablet 3 3 Active Gabapentin 100 MG Oral Capsule (Neurontin) Take one tablet by mouth at bedtime for 7 days, then one tablet twice a day for 7 day, and then one tablet three times a day 90 Capsule 2 3 Active Additional Information Patient taking differently: 100 mg Oral TID(AM/NOON/HS), Take one capsule three times a day, Reported on 03/26/2023 Metoprolol Succinate ER 25 MG Oral Tablet Extended Release 24 Hour (toPROL XL) Take 1 Tablet by mouth in the morning and 1 Tablet before bedtime. 60 Tablet 11 3 Active Vitamin D (Cholecalciferol) 25 MCG (1000 UT) Oral CapsuleIndications: taking OTC 5,000 IU daily Take 1 Capsule by mouth in the morning. 30 Capsule 1 3 Active Benefiber Oral Tablet Chewable Take by mouth. 0 Activ e traMADol HCl 50 MG Oral Tablet (Ultram)Indications :PVD (peripheral vascular disease) (HCC),Wound of lower extremity, unspecified laterality, subsequent encounter Take 1 Tablet by mouth every 6 hours as needed for Pain, Severe. 20 Tablet 0 3 Active Vitamin B-6 100 MG Oral Tablet (vitamin B-6) take 2&1/2 tablets at noon (250 mg unavailable) 225 Tablet 0 3 Active Ezetimibe 10 MG Oral Tablet (Zetia)Indications: Type 2 diabetes mellitus without complication, without long-term current use of insulin ([facility]) TAKE ONE TABLET BY MOUTH EVERY DAY 100 Tablet 0 3 Active OXcarbazepine 300 MG Oral Tablet (Trileptal) TAKE ONE TABLET BY MOUTH TWICE DAILY 60 Tablet 5 4 Active Eliquis 5 MG Oral Tablet (Apixaban)Indicatio ns:Deep vein thrombosis (DVT) of distal vein of lower extremity, unspecified chronicity, unspecified laterality (HCC) TAKE ONE TABLET BY MOUTH TWICE DAILY 60 Tablet 5 4 Active OXcarbazepine 150 MG Oral Tablet (Trileptal) TAKE ONE TABLET BY MOUTH TWICE DAILY 60 Tablet 5 4 Active Pentoxifylline ER 400 MG Oral Tablet Extended Release (TRENtal)Indication s:PVD (peripheral vascular disease) (HCC) TAKE ONE TABLET TWICE DAILY 60 Tablet 5 4 Active Vitamin B-12 1000 MCG Oral Tablet (Cyanocobalamin) TAKE ONE TABLET BY MOUTH IN THE MORNING 30 Tablet 5 4 Active Folic Acid 1 MG Oral Tablet TAKE ONE TABLET IN THE MORNING 30 Tablet 5 4 Active Apixaban 5 MG Oral Tablet (Eliquis)Indication s:Deep vein thrombosis (DVT) of distal vein of lower extremity, unspecified chronicity, unspecified laterality (HCC) Take 1 Tablet by mouth in the morning and 1 Tablet before bedtime. 200 Tablet 0 3 05/31/19 24 Discontinued OXcarbazepine 150 MG Oral Tablet (Trileptal)Indicati ons:takes in addition to 300mg dose =450 mg twice daily Take 1 Tablet by mouth in the morning and 1 Tablet before bedtime. 60 Tablet 3 3 06/01/19 24 Discontinued OXcarbazepine 300 MG Oral Tablet (Trileptal)Indicati ons:takes in addition to the 150mg dkj=047 mg twice daily Take 1 Tablet by mouth in the morning and 1 Tablet before bedtime. 60 Tablet 3 3 06/01/19 24 Discontinued Pentoxifylline ER 400 MG Oral Tablet Extended Release (TRENtal)Indication s:PVD (peripheral vascular disease) ([facility]) TAKE ONE TABLET BY MOUTH TWICE DAILY 60 Tablet 1 3 05/31/19 24 Discontinued Folic Acid 1 MG Oral Tablet TAKE ONE TABLET IN THE MORNING 30 Tablet 0 3 05/31/19 24 Discontinued Vitamin B-12 1000 MCG Oral Tablet (Cyanocobalamin) TAKE ONE TABLET IN THE MORNING 30 Tablet 0 3 06/01/19 24 Discontinued documented as of this encounter (statuses as [...] years 01/29/2018 Atherosclerotic heart diseas e of [place] coronary artery with unspecified angina pectoris 09/13/2017 [...] L2-S1 stenosis S/P L2-5 Laminectomy, L4-5 PLIF, L2-O7Dzogbmun w PSF- Jan 2011 Juxtafusion deg L1-2 w stenosis Cerebrovascular disease, arteriosclerotic, post- stroke Osteoarthrosis involving multiple sites but not generalized Overview: S/P B TKR- Jun 2011 Dr Bertram Guerreor knee arthroscopy- 2014 Cervical spinal stenosis Overview: S/P C3-[address] Jun [address] Oneal Segovia C3-6 PSF Residual myelopathy documented as of this encounter (statuses as of 06/01/2023) Resolved Problems Problem Noted Date Diagnosed Date Resolved Date Acute blood loss anemia 02/21/2023 10/2 08/2022 Morbid obesity 09/12/2022 06/01/2023 Major depressive disorder [...] Impaired fasting glucose 12/2015 Coronary atherosclerosis of [place] coronary artery 07/03/2018 documented as of this encounter (statuses as of 06/01/2023) Immunizations Name Administration Dates Next Due COVID-19 mRNA, LNP-s, No Pre serve, 2-Dose Series ([employer]) 08/31/2021,02/10/2021,06/20/2020,05/30 COVID-19, LNP-s, No Preserve , John-sucrose, Ages 12+ ([employer]) 08/31/2021 Covid-19, Mrna, Lnp-s, Pf, B ivalent, [...] encounter Miscellaneous Notes * Telephone Encounter - Maribel Fang DO - 06/01/2023 2:17 PM ESTSigned Prescriptions: Disp Refills OXcarbazepine 300 MG Oral Tablet (Trilepta*60 Tab*5 Sig: TAKE ONE TABLET BY MOUTH TWICE DAILY Authorizing Provider: MARIBEL FANG Eliquis 5 MG Oral Tablet (Apixaban) 60 Tab*5 Sig: TAKE ONE TABLET BY MOUTH TWICE DAILY Authorizing Provider: MARIBEL FANG Ordering User: SHELL SORENSEN OXcarbazepine 150 MG Oral Tablet (Trilep ta*60 Tab*5 Sig: TAKE ONE TABLET BY MOUTH TWICE DAILY Authorizing Provider: MARIBEL FANG Pentoxifylline ER 400 MG Oral Tablet Exten*60 Tab*5 Sig: TAKE ONE TABLET TWICE DAILY Authorizing Provider: MARIBEL FANG Ordering User: SHELL SORENSEN Vitamin B-12 1000 MCG Oral Tablet (Cyanoco*30 Tab*5 Sig: TAKE ONE TABLET BY MOUTH IN THE MORNING Authorizing Provider: MARIBEL FANG Folic Acid 1 MG Oral Tablet 30 Tab*5 Sig: TAKE ONE TABLET IN THE MORNING Authorizing Provider: MARIBEL FANG Ordering User: SHELL SORENSEN * Telephone Encounter - Shell Sorensen [facility] - 05/31/2023 7:42 PM ESTPending Prescriptions: Disp Refills OXcarbazepine 300 MG Oral Tablet (Trilepta*60 Tab*5 Sig: TAKE ONE TABLET BY MOUTH TWICE DAILY OXcarbazepine 150 MG Oral Tablet (Trilepta*60 Tab*5 Sig: TAKE ONE TABLET BY MOUTH TWICE DAILY Vitamin B-12 1000 MCG Oral Tablet (Cyanoco*30 Tab*5 Sig: TAKE ONE TABLET BY MOUTH IN THE MORNING Signed Prescriptions: D isp Refills Eliquis 5 MG Oral Tablet (Apixaban) 60 Tab*5 Sig: TAKE ONE TABLET BY MOUTH TWICE DAILY Authorizing Provider: MARIBEL FANG Ordering User: SHELL SORENSEN Pentoxifylline ER 400 MG Oral Tablet Exten*60 Tab*5 Sig: TAKE ONE TABLET TWICE DAILY Authorizing Provider: MARIBEL FANG Ordering User: SHELL SORENSEN Folic Acid 1 MG Oral Tablet 30 Tab*5 Sig : TAKE ONE TABLET IN THE MORNING Authorizing Provider: MARIBEL FANG Ordering User: SHELL SORENSEN * Telephone Encounter - Shell Sorensen RPh - 05/31/2023 7:41 PM EST [facility] is currently not authorized to approve refills for the pended medication(s) per refill protocol. Please approve if appropriate. ThanksShell PharmD Clinical Pharmacist [facility] ([facility]) [phone] 05/31/2023, 7:41 PM * Telephone Encounter - Shell Sorensen RPh - 05/31/2023 7:40 PM EST Pending Prescriptions: Disp Refills OXcarbazepine 300 MG Oral Tablet (Trilept*60 Tab*3 Sig: TAKE ONE TABLET BY MOUTH TWICE DAILY Eliquis 5 MG Oral Tablet (Apixaban) [Phar*200 Ta*3 Sig: TAKE ONE TABLET BY MOUTH TWICE DAILY OXcarbazepine 150 MG Oral Tablet (Trilept*60 Tab*3 Sig: TAKE ONE TABLET BY MOUTH TWICE DAILY Pentoxifylline ER 400 MG Oral Tablet Exte*60 Tab*3 Sig: TAKE ONE TABLET TWICE DAILY Vitamin B-12 1000 MCG Oral Tablet (Cyanoc*30 Tab*3 Sig: TAKE ONE TABLET BY MOUTH IN THE MORNING Folic Acid 1 MG Oral Tablet [Pharmacy Med*30 Tab*3 Sig: TAKE ONE TABLET IN THE MORNING Last Visit: 04/10/2023 (in office), Visit date not found (telemedicine) Next Visit: 06/01/2023 If no future appointments scheduled, and last appointment is greater than a year ago, please schedule patient for a follow-up appointment Last date the medication was ordered: 01/31/23 Pharmacy: [facility], [address] [place] Is this request for a controlled substance? No Urine Drug Screen:No results found. However, due to the size of the patient record, not all encounters were searched. Please check Results Review for a complete set of results. Patient Phone Numbers Labs: Lab Results Component Value Date/Time CREAT 0.9 04/03/2023 02:13 PM CREAT 1.21 (A) 01/22/2023 12:00 AM CREAT 1.4 (H) 05/24/2020 11:27 AM CREAT 0.6 (L) 06/18/1996 03:39 PM POTASSIUM 3.8 04/03/2023 02:13 PM POTASSIUM 3.9 01/22/2023 12:00 AM POTASSIUM 4.9 05/24/2020 11:27 AM POTASSIUM 4.7 06/18/1996 03:39 PM TSH 1.33 04/03/2023 02:13 PM TSH 0.68 12/24/2019 09:21 AM TSH 9.09 (H) 06/18/1996 03:39 PM LDLCALC 63 03/21/2022 09:20 AM LDLCALC 08/06/2019 07:15 AM Uninterpretable, recommend direct LDL cholesterol testing. LDLDIRECT 75 10/28/2020 09:45 AM LDLDIRECT 60 12/24/2019 09:26 AM LDLDIRECT 91 05/20/2013 02:57 PM ALT 46 (H) 01/04/2023 10:33 AM ALT 33 06/17/2019 10:17 AM ALT 49 06/18/1996 03:39 PM HGBA1C 5.9 (H) 09/13/2022 03:45 PM HGBA1C 5.9 (H) 12/24/2019 09:21 AM documented in this encounter Plan of Treatment Upcoming Encounters Date Type Department Care Team (Late st Contact Info) Description 06/04/2023 10:30 AM EST Office Visit Orthopaedics [facility] [address] [place] [address] Aiden Fong DO [address] [place] [address] 06/05/2023 10:30 AM EST Pharmacy Pharmacy, [facility] [address] [address] [facility] [address] [place] [address] 06/06/2023 10:00 AM EST [facility] [address] [address] Ramon Medel MD [address] [place] [phone] 06/14/2023 9:00 AM EST [facility] [address] [place] [address] Brad Mcdowell PA-C [address] [place] [address] 06/26/2023 10:30 AM EST Imaging Vascular Lab, [facility] 2nd Floor, [place] [address] [address] 06/26/2023 11:30 AM EST Imaging Vascular Lab, [facility] 2nd Floor, [place] [address] [facility] [place] [address] 07/04/2023 11:50 AM EST Office Visit Vascular Surgery, [facility] [address] [facility] [place] [address] Chucky Lea MD [address] [place] [address] 07/06/2023 2:30 PM EST Home Visit [facility] [address] [facility] [place] [address] Sindi See RN [address] [facility] [place] [address] 07/16/2023 10:30 AM EDT Nurse Only Ancillary [facility] [address] [facility] [place] [address] [facility], Nurse Annual Wellness [facility] 132 [facility] [place] [address] 07/18/2023 10:40 AM EDT Office Visit Neurology [facility] [address] [place], [place] [address] Juana Hewitt PA-C [address] [facility] [place] [address] 07/31/2023 8:40 AM EDT Office Visit Family Practice [facility] [address] [facility] [place] [address] Maribel Fang DO [address] [facility] [place] [address] 08/16/2023 10:15 AM EDT Office Visit Orthopaedics [facility] [address] [facility] [place] [address] Cristhian Cantrell PA-C [address] [place] [address] 09/24/2023 2:20 PM EDT Office Visit Dermatology [address] [place] [address] Rebeka Cannon PA-C [address] [place] [address] [place] [address] 10/17/2023 1:00 PM EDT Office Visit Family [facility] [address] [place] [address] Maribel Fang DO [address] [place] [address] 02/20/2024 2:40 PM EDT Office Visit Nephrology [address] [place] [address] Eileen Anderson MD [facility] [place] [address] Health Maintenance Due Date Last Done Comments [...] Additional history exists CKD HGB USE SMARTSET 96251 04/03/202404/03, 04/03/2023, 02/26/2023, Additional history exists CKD PHOS USE SMARTSET 83888 04/03/202403/08, 12/08/2021, 10/28/2020, Additional history exists TSH 04/03/2024 04/03/2023, 0 08/2022, 01/04/2023, Additional history exists Diabetic Eye Exam 04/10/2024 04/10/2023, , 12/08/2021, Additional history exists DXA Scan 05/10/2026 05/10/2016, 09/23/2010 DTaP,Tdap,and Td Vaccines (3 - Td or Tdap) 02/22/2032 02/21/2022, 02/14/2012 Pneumococcal Vaccine: 65+ Years Completed 04/19/2017, 12/13/2015, 04/15/2007 Zoster Vaccines Completed 12/03/2018, 09/05, 05/15/2014 LUNG CANCER SCREENING - USE SMARTSET [id number] Completed 01/06/2022, 07/19/2018 Influenza Vaccine (FLU shot) Completed 10/2022, 02/21/2022, 01/28/2021, Additional history exists GARDASIL-HPV IMMUNIZATION SERIES Aged Out No longer eligible based on patient's age to complete this topic MENINGOCOCCAL (MENACTRA/MENVEO) Aged Out No longer eligible based on patient's age to complete this topic documented as of this encounter Medical Devices Implanted Type Area Automotive Shop Foreman Device Identifier Shelf Expiration Date Model / Serial / Lot Patch Xenosure [id number] - [id number] - [id number] Implanted:Qty : 1 on 02/20/2023 by Chucky Lea MD at [place] [facility] Left: Femoral Artery [employer] [id number] 10/01/2028 [id number] / [id number] / [id number] documented as of this encounter Visit Diagnoses Diagnosis Deep vein thrombosis (DVT) of distal vein of lower extremity, unspecified chronicity, unspecified laterality (HCC) PVD (peripheral vascular disease) (HCC) Peripheral vascular disease, unspecified documented in this encounter Advance Directives Documents on File Type Date Recorded Patient Service Supervisor Expl anation Advance Directives and Living Will 10/23/2016 ADVANCE DIRECTIVE FI VE WISHES Power of [employer] Administrator 10/23/2016 POWER OF A TTORNEY FIVE WISHES [...] Care Agent (per Health Care Power of [employer] Administrator document) Krystin Arreguin Adult Child Health Care Agen t (per Health Care Power of [employer] Administrator document) Care Teams Mechanical Systems Designer Relationship Specialty Start Date End Date Maribel Fang DO [address] [place] [address] PCP - General Family Medicine 12/01/16 documented as of this encounter
--- OUTSIDE RECORDS SUMMARY | 2023-06-06 08:48 | External Medical Summary | Summary of Care ---
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 Propoxyphene Napsylate Nausea/vomiting Low 01/24/20 00 documented as of this encounter (statuses as of 06/02/2023) Medications Medication Sig Dispensed Refills Start Date [...] complication, without long-term current use of insulin ([facility]) TAKE ONE TABLET BY MOUTH EVERY DAY 100 Tablet 0 05/01/2023 Active OXcarbazepine 300 MG Oral Tablet (Trileptal) TAKE ONE TABLET BY MOUTH TWICE DAILY 60 Tablet 5 06/01/2023 Active Eliquis 5 MG Oral Tablet (Apixaban)Indication s:Deep vein thrombosis (DVT) of distal vein of lower extremity, unspecified chronicity, unspecified laterality ([facility]) TAKE ONE TABLET BY MOUTH TWICE DAILY 60 Tablet 5 05/31/2023 Active OXcarbazepine 150 MG Oral Tablet (Trileptal) TAKE ONE TABLET BY MOUTH TWICE DAILY 60 Tablet 06/01/2023 Active Pentoxifylline ER 400 MG Oral Tablet Extended Release (TRENtal)Indications :PVD (peripheral vascular disease) ([facility]) TAKE ONE TABLET TWICE DAILY 60 Tablet 5 05/31/2023 Active Vitamin B-12 1000 MCG Oral Tablet (Cyanocobalamin) TAKE ONE TABLET BY MOUTH IN THE MORNING 30 Tablet 06/01/2023 Active Folic Acid 1 MG Oral Tablet TAKE ONE TABLET IN THE MORNING 30 Tablet 5 05/31/2023 Active documented as of this encounter (statuses as of 06/02/2023) Active Problems Problem Noted Date Diagnosed Date [...] years 01/29/2018 Atherosclerotic heart diseas e of ramona coronary artery with unspecified angina pectoris 09/13/2017 [...] L2-S1 stenosis S/P L2-5 Laminectomy, L4-5 PLIF, L2-C0Plpmlbyp w PSF- Jan 2011 Juxtafusion deg L1-2 w stenosis Cerebrovascular disease, arteriosclerotic, post- stroke Osteoarthrosis involving multiple sites but not generalized Overview: S/P B TKR- Jun 2011 Dr Bertram Guerrero knee arthroscopy- 2014 Cervical spinal stenosis Overview: S/P C3-[address] Jun [address] Oneal Segovia C3-6 PSF Residual myelopathy documented as of this encounter (statuses as of 06/02/2023) Resolved Problems Problem Noted Date Diagnosed Date [...] Impaired fasting glucose 12/2015 Coronary atherosclerosis of ramona coronary artery 07/03/2018 documented as of this encounter (statuses as of 06/02/2023) Immunizations Name Administration Dates Next Due COVID-19 [...] encounter Miscellaneous Notes * Telephone Encounter - Annie Nuñez MED ASSIST - 06/02/2023 11:56 AM EST Pt informed. * Telephone Encounter - Huong Foreman CRNP - 06/01/2023 4:00 PM EST PLEASE NOTIFY PATIENT SHOULDER x ray showing no fracture but mild arthritis. I made her referral back to ortho to discuss options for it. Erinn, MSN, OSTEOPATHIC PHYSICIAN [facility] Family Medicine documented in this encounter Plan of Treatment Upcoming Encounters Date Type Department Care Team (Late st Contact Info) Description 06/04/2023 10:30 AM EST Office Visit Orthopaedics [facility] [address] [place] [address] Aiden Fong, [address] [place] [address] 06/05/2023 10:30 AM EST Pharmacy Pharmacy, [facility] [address] [place] [address] [facility] [address] [place] [address] 06/06/2023 10:00 AM EST Office Visit [facility]opaedics [facility] [place] [address] Ramon Medel MD [address] [place] [phone] 06/14/2023 9:00 AM EST Home Visit [facility], [place] [address] [place] [address] Brad Mcdowell PA-C [address] [place] [address] 06/26/2023 10:30 AM EST Imaging Vascular Lab, [address] [facility] [place] [address] 06/26/2023 11:30 AM EST Imaging Vascular Lab, [address] [facility] [place] [address] 07/04/2023 11:50 AM EST Office Visit Vascular Surgery, [facility] [address] [facility] [place] [address] Chucky Lea MD [address] [facility] [place] [address] 07/06/2023 2:30 PM EST Home Visit [facility], [facility] [address] [place] [address] Sindi See RN [address] [place] [address] 07/16/2023 10:30 AM EDT Nurse Only Ancillary [facility] [address] [place] [address] [facility], Nurse Annual Wellness [facility] [address] [place] [address] 07/18/2023 10:40 AM EDT Office Visit Neurology [facility] [place] [address] Juana Hewitt PA-C [address] [facility] [place] [address] 07/31/2023 8:40 AM EDT Office Visit [facility] [address] [place] [address] Naty Fang, [address] [place] [address] 08/16/2023 10:15 AM EDT Office Visit Orthopaedics [facility] [address] [place] [address] Cristhian Cantrell PA-C [address] [place] [address] 09/24/2023 2:20 PM EDT Office Visit Dermatology [address] [place] [address] Rebeka Cannon PA-C [address] [place] [address] [place] [address] 10/17/2023 1:00 PM EDT Office Visit [facility] [address] [place] [address] Naty Fang DO [address] [place] [address] 02/20/2024 2:40 PM EDT Office Visit Nephrology [address] [place] [address] Eileen Anderson MD [address] [place] [address] Health Maintenance Due Date Last Done Comments [...] Additional history exists CKD HGB USE SMARTSET 86530 04/03/202404/03, 04/03/2023, 02/26/2023, Additional history exists CKD PHOS USE SMARTSET 49871 04/03/202403/08, 12/08/2021, 10/28/2020, Additional history exists TSH 04/03/2024 04/03/2023, 10/0 08/2022, 01/04/2023, Additional history exists Diabetic Eye Exam 04/10/2024 04/10/2023, , 12/08/2021, Additional history exists DXA Scan 05/10/2026 05/10/2016, 09/23/2010 DTaP,Tdap,and Td Vaccines (3 - Td or Tdap) 02/22/2032 02/21/2022, 02/14/2012 Pneumococcal Vaccine: 65+ Years Completed 04/19/2017, 12/13/2015, 04/15/2007 Zoster Vaccines Completed 12/03/2018, 09/05, 05/15/2014 LUNG CANCER SCREENING - USE SMARTSET 86204 Completed 01/06/2022, 07/19/2018 Influenza Vaccine (FLU shot) Completed 10/2022, 02/21/2022, 01/28/2021, Additional history exists GARDASIL-HPV IMMUNIZATION SERIES Aged Out No longer eligible based on patient's age to complete this topic MENINGOCOCCAL (MENACTRA/MENVEO) Aged Out No longer eligible based on patient's age to complete this topic documented as of this encounter Medical Devices Implanted Type Area Braddisher Device Identifier Shelf Expiration Date Model / Serial / Lot Patch Xenosure [id number] - [id number] - [id number] Implanted:Qty : 1 on 02/20/2023 by Chucky Lea MD at [place] [facility] [place] Left: Femoral Artery [facility] [employer] [id number] 10/01/2028 E0.8P8 / [id number] / [id number] documented as of this encounter Advance Directives Documents on File Type Date Recorded Patient Negative Stripper Expl anation Advance Directives and Living Will 10/23/2016 ADVANCE DIRECTIVE FI VE WISHES Power of Maintenance Mechanic Elevators 10/23/2016 POWER OF A TTORNEY FIVE WISHES [...] Care Agent (per Health Care Power of Maintenance Mechanic Elevators document) Krystin Arreguin Adult Child Health Care Agen t (per Health Care Power of Maintenance Mechanic Elevators document) Care Teams Domestic Violence Counselor Relationship Specialty Start Date End Date Naty Fang DO [address] [place] [address] PCP - General Family Medicine 12/01/16 documented as of this encounter
--- OUTSIDE RECORDS SUMMARY | 2023-06-06 08:49 | External Medical Summary | Summary of Care ---
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 200 Tablet 0 01/31/2023 Active Levothyroxine Sodium 112 MCG Oral Tablet [...] on 03/26/2023 OXcarbazepine 150 MG Oral Tablet (Trileptal)Indicatio ns:takes in addition to 300mg dose =450 mg twice daily Take 1 Tablet by mouth in the morning and 1 Tablet before bedtime. 60 Tablet 3 01/31/2023 Active OXcarbazepine 300 MG Oral Tablet (Trileptal)Indicatio ns:takes in addition to the 150mg yga=920 mg twice daily Take 1 Tablet by mouth in the morning and 1 Tablet before bedtime. 60 Tablet 3 01/31/2023 Active Metoprolol Succinate ER 25 MG Oral Tablet Extended Release 24 Hour (toPROL XL) Take 1 Tablet by mouth in the morning and 1 Tablet before bedtime. 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 Controlled on metformin. Continue diabetic diet. 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 09/13/2017 [...] L2-S1 stenosis S/P L2-5 Laminectomy, L4-5 PLIF, L2-X0Fhbkioll w PSF- Jan 2011 Juxtafusion deg L1-2 w stenosis Cerebrovascular disease, arteriosclerotic, post- stroke Osteoarthrosis involving multiple sites but not generalized Overview: S/P B TKR- Jun 2011 Dr Bertram Guerrero knee arthroscopy- 2014 Cervical spinal stenosis Overview: S/P C3-[address] Jun [address] Oneal Segovia C3-6 PSF Residual myelopathy documented as of this encounter (statuses as of 05/29/2023) Resolved Problems Problem Noted Date Diagnosed Date Resolved Date Acute blood loss anemia 02/21/202302/05 Major depressive disorder with single episode 08/10/19 22 10/18/2022 Morbid (severe) obesity due to excess calories 06/17/2019 05/15/2020 Hypertensive kidney disease with CKD stage III [...] Impaired fasting glucose 12/2015 Coronary atherosclerosis of craig coronary artery 07/03/2018 documented as of this encounter (statuses as of 05/29/2023) Immunizations Name Administration Dates Next Due COVID-19 mRNA, LNP-s, No Pre serve, 2-Dose Series (DigiPath) 08/31/2021,02/10/2021,06/20/2020,05/30 COVID-19, LNP-s, No Preserve , John-sucrose, [...] encounter Miscellaneous Notes * Telephone Encounter - Shayna Vu OSA - 02/27/2023 8:48 AM EDT Pt scheduled, will receive appt details at discharge * Telephone Encounter - Shayna Vu OSA - 02/27/2023 8:48 AM EDT Images from the original note were not included. DO Shawn Rojas [facility] [facility] This patient will need follow up 03/07 for soft cast change at [facility]. Thank you! Talita documented in this encounter Plan of Treatment Upcoming Encounters Date Type Department Care Team (Late st Contact Info) Description 05/31/2023 3:00 PM EST Home Visit [facility] [address] [place] [address] Brad Mcdowell PA-C [address] [place] [address] 06/01/2023 10:00 AM EST Office Visit Family Practice [facility] [address] [place] [address] Huong Foreman CRNP [address] [place] [address] 06/04/2023 10:30 AM EST Office Visit Orthopaedics [facility] [address] [place] [address] Aiden Fong DO [address] [place] [address] 06/05/2023 10:30 AM EST Pharmacy Pharmacy, [facility] [address] [place] [address] [facility] [address] [place] [address] 06/26/2023 10:30 AM EST Imaging Vascular Lab, [facility] 2nd Floor, [place] [address] [place] [address] 06/26/2023 11:30 AM EST Imaging Vascular Lab, [facility] 2nd Floor, [place] [address] [facility] [place] [address] 07/04/2023 11:50 AM EST Office Visit Vascular Surgery, [facility] [address] [facility] [place] [address] Chucky Lea MD [address] [place] [address] 07/06/2023 2:30 PM EST [facility] [address] [facility] [place] [address] Sindi See RN [address] [place] [address] 07/16/2023 10:30 AM EDT Nurse Only Ancillary [facility] [address] [facility] [place] [address] [facility], Nurse Annual Wellness [facility] 132 [facility] [place] [address] 07/18/2023 10:40 AM EDT Office Visit Neurology [facility] [place] [address] Juana Hewitt PA-C 200 [facility] [place] [address] 07/31/2023 8:40 AM EDT Office Visit Family Practice [facility] [address] [facility] [place] [address] Naty Fang DO 132 [facility] [place] [address] 08/16/2023 10:15 AM EDT Office Visit Orthopaedics [facility] [address] [facility] [place] [address] Cristhian Cantrell PADeniseC [address] [place] [address] 09/24/2023 2:20 PM EDT Office Visit Dermatology [address] [place] [address] Rebeka Cannon PA-C [address] [place] [address] [place] [address] 10/17/2023 1:00 PM EDT Office Visit Family [facility] [address] [place] [address] Naty Fang DO [address] [place] [address] 02/20/2024 2:40 PM EDT Office Visit Nephrology [address] [place] [address] Eileen Anderson MD [address] [facility] [place] [address] Health Maintenance Due Date Last Done Comments [...] Additional history exists CKD HGB USE SMARTSET 56091 04/03/202404/03, 04/03/2023, 02/26/2023, Additional history exists CKD PHOS USE SMARTSET 66465 04/03/202403/08, 12/08/2021, 10/28/2020, Additional history exists TSH 04/03/2024 04/03/2023, 100 08/2022, 01/04/2023, Additional history exists Diabetic Eye Exam 04/10/2024 04/10/2023, , 12/08/2021, Additional history exists DXA Scan 05/10/2026 05/10/2016, 09/23/2010 DTaP,Tdap,and Td Vaccines (3 - Td or Tdap) 02/22/2032 02/21/2022, 02/14/2012 Pneumococcal Vaccine: 65+ Years Completed 04/19/2017, 12/13/2015, 04/15/2007 Zoster Vaccines Completed 12/03/2018, 09/05, 05/15/2014 LUNG CANCER SCREENING - USE SMARTSET 44322 Completed 01/06/2022, 07/19/2018 Influenza Vaccine (FLU shot) Completed 10/2022, 02/21/2022, 01/28/2021, Additional history exists GARDASIL-HPV IMMUNIZATION SERIES Aged Out No longer eligible based on patient's age to complete this topic MENINGOCOCCAL (MENACTRA/MENVEO) Aged Out No longer eligible based on patient's age to complete this topic documented as of this encounter Medical Devices Implanted Type Area Special Agent F[employer] Device Identifier Shelf Expiration Date Model / Serial / Lot Patch Xenosure [id number] - [id number] - [id number] Implanted:Qty : 1 on 02/20/2023 [place] Chucky Le[place] [facility] [place] Femoral Artery [employer] [employer] [id number] 10/01/2028 E0.8P8 / [id number] / [id number] documented as of this encounter Advance Directives Documents on File Type Date Recorded Patient Chain Saw Operator Expl anation Advance Directives and Living Will 10/23/2016 ADVANCE DIRECTIVE FI VE WISHES Power of Supervisor Color Making 10/23/2016 POWER OF A TTORNEY FIVE [...] Agent (per Health Care Power of Supervisor Color Making document) Krystin Arreguin Adult Child Health Care Agen t (per Health Care Power of Supervisor Color Making document) Care Teams Regular Senior Care Provider Relationship Specialty Start Date End Date Naty Fang DO [address] [place] [address] PCP - General Family Medicine 12/01/16 documented as of this encounter
--- OUTSIDE RECORDS SUMMARY | 2023-06-06 08:49 | External Medical Summary | Summary of Care ---
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 0 Activ e Pentoxifylline ER 400 MG Oral Tablet Extended Release (TRENtal)Indications :PVD (peripheral vascular disease) (HCC) TAKE ONE TABLET BY MOUTH TWICE DAILY 60 Tablet 1 04/03/2023 Active traMADol HCl 50 MG Oral Tablet (Ultram)Indications: [...] EVERY DAY 100 Tablet 0 05/01/2023 Active Folic Acid 1 MG Oral Tablet TAKE ONE TABLET IN THE MORNING 30 Tablet 0 05/01/2023 Active Vitamin B-12 1000 MCG Oral Tablet (Cyanocobalamin) TAKE ONE TABLET IN THE MORNING 30 Tablet 0 05/01/2023 Active documented as of this encounter (statuses as of 05/30/2023) Active Problems Problem Noted Date Diagnosed Date PVD (peripheral vascular disease) 02/07/2023 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 Controlled on metformin. Continue diabetic diet. Follows with [facility] Type 2 diabetes mellitus with peripheral [...] L2-S1 stenosis S/P L2-5 Laminectomy, L4-5 PLIF, L2-O1Oqcrrxus w PSF- Jan 2011 Juxtafusion deg L1-2 w stenosis Cerebrovascular disease, arteriosclerotic, post- stroke Osteoarthrosis involving multiple sites but not generalized Overview: S/P B TKR- Jun 2011 Dr Bertram Guerrero knee arthroscopy- 2014 Cervical spinal stenosis Overview: S/P C3-[address] Jun [address] Oneal Segovia C3-6 PSF Residual myelopathy documented as of this encounter (statuses as of 05/30/2023) Resolved Problems Problem Noted Date Diagnosed Date [...] as of this encounter (statuses as of 05/30/2023) Immunizations Name Administration Dates Next Due COVID-19 [...] Encounter - Minoo Pena MED ASSIST - 05/30/2023 9:54 AM EST PT order faxed to [facility] for patient. * Telephone Encounter - Davon Savage OSA - 05/30/2023 9:08 AM EST Diamond from [facility] called. Pt has an order for PT and they were informed that pt is getting in home therapy so insurance will not pay for both. She was requesting Cristhian to send a script for her shoulder PT to be included with her [facility]. She provided a phone number to [facility] [phone]. She did not have a fax number. documented in this encounter Plan of Treatment Upcoming Encounters Date Type Department Care Team (Late st Contact Info) Description 05/31/2023 3:00 PM EST Home Visit [facility] [address] [facility] [place] [address] Brad Mcdowell PA-C [address] [place] [address] 06/01/2023 10:00 AM EST Office Visit Family Practice [facility] [address] [place] [address] Huong Foreman CRNP [address] [place] [address] 06/04/2023 10:30 AM EST Office Visit Orthopaedics [facility] [address] [place] [address] Aiden Fong DO [address] [place] [address] 06/05/2023 10:30 AM EST Pharm[facility] Pharmacy, [facility] [place] [address] [facility] [address] [place] [address] 06/26/2023 10:30 AM EST Imaging Vascular Lab, [address] [place] [address] 06/26/2023 11:30 AM EST Imaging Vascular Lab, [address] [facility] [place] [address] 07/04/2023 11:50 AM EST Office Visit Vascular Surgery, [facility] [address] [place] [address] Chucky Lea MD [address] [facility] [place] [address] 07/06/2023 2:30 PM EST Home Visit [facility] [place] [address] [place] [address] Sindi See, RN [address] [place] [address] 07/16/2023 10:30 AM EDT Nurse Only Ancillary [facility] [address] [place] [address] Justin, Nurse Annual Wellness [facility] [address] [place] [address] 07/18/2023 10:40 AM EDT Office Visit Neurology [facility] [address] [facility] [place] [address] Juana Hewitt PA-C [address] [facility] [place] [address] 07/31/2023 8:40 AM EDT Office Visit [facility] [address] [place] [address] Naty Fang, DO [address] [place] [address] 08/16/2023 10:15 AM EDT Office Visit Orthopaedics [facility] [address] [place] [address] Cristhian Cantrell PA-C [address] [place] [address] 09/24/2023 2:20 PM EDT Office Visit Dermatology [address] [place] [address] Rebeka Cannon PA-C [address] [place] [address] [place] [address] 10/17/2023 1:00 PM EDT Office Visit [facility] [address] [place] [address] Naty Fang, DO [address] [place] [address] 02/20/2024 2:40 PM EDT Office Visit Nephrology [address] [place] [address] Eileen Anderson MD [address] [place] [address] Health Maintenance Due Date Last Done Comments [...] Additional history exists CKD HGB USE SMARTSET 48776 04/03/202404/03, 04/03/2023, 02/26/2023, Additional history exists CKD PHOS USE SMARTSET 42339 04/03/202403/08, 12/08/2021, 10/28/2020, Additional history exists TSH 04/03/2024 04/03/2023, 10/0 08/2022, 01/04/2023, Additional history exists Diabetic Eye Exam 04/10/2024 04/10/2023, , 12/08/2021, Additional history exists DXA Scan 05/10/2026 05/10/2016, 09/23/2010 DTaP,Tdap,and Td Vaccines (3 - Td or Tdap) 02/22/2032 02/21/2022, 02/14/2012 Pneumococcal Vaccine: 65+ Years Completed 04/19/2017, 12/13/2015, 04/15/2007 Zoster Vaccines Completed 12/03/2018, 09/05, 05/15/2014 LUNG CANCER SCREENING - USE SMARTSET 23615 Completed 01/06/2022, 07/19/2018 Influenza Vaccine (FLU shot) Completed 10/2022, 02/21/2022, 01/28/2021, Additional history exists GARDASIL-HPV IMMUNIZATION SERIES Aged Out No longer eligible based on patient's age to complete this topic MENINGOCOCCAL (MENACTRA/MENVEO) Aged Out No longer eligible based on patient's age to complete this topic documented as of this encounter Medical Devices Implanted Type Area Minister Device Identifier Shelf Expiration Date Model / Serial / Lot Patch Xenosure [id number] - [id number] - [id number] Implanted:Qty : 1 on 02/20/2023 by Chucky Lea MD at [facility] Left: Femoral Artery [employer] [id number] 10/01/2028 [id number] / [id number] / [id number] documented as of this encounter Advance Directives Documents on File Type Date Recorded Patient [employer] Driver Expl anation Advance Directives and Living Will 10/23/2016 ADVANCE DIRECTIVE FI VE WISHES Power of Enterprise Business Architect 10/23/2016 POWER OF A TTORNEY FIVE WISHES [...] Care Agent (per Health Care Power of Enterprise Business Architect document) Krystin Arreguin Adult Child Health Care Agen t (per Health Care Power of Enterprise Business Architect document) Care Teams Network Associate Relationship Specialty Start Date End Date Naty Fang DO [address] [place] [address] PCP - General Family Medicine 12/01/16 documented as of this encounter
[2023-06-06] MEDS: HEPARIN 25000 UNIT/500 ML D5W IV ONE (08:58)
[2023-06-06] MEDS: EZETIMIBE 10 MG TAB PO SCH (09:19)
[2023-06-06] MEDS: PENTOXIFYLLINE 400MG EXT REL TAB PO SCH (09:19)
[2023-06-06] MEDS: GABAPENTIN 100 MG CAP PO SCH (09:19)
[2023-06-06] MEDS: FOLIC ACID 1 MG TAB PO SCH (09:19)
[2023-06-06] MEDS: MAGNESIUM SULFATE / D5W 1 GM/100 ML BAG IV SCH (09:24)
[2023-06-06] MEDS: OXcarbazepine 150 MG TABLET PO SCH (09:55)
[2023-06-06] MEDS: TOPIRAMATE 100 MG TAB PO SCH (09:55)
[2023-06-06] MEDS: INSULIN ASPART PER UNIT CHARGE SC SCH (09:58)
[2023-06-06] MEDS: ACETAMINOPHEN 325 MG TAB PO PRN (12:05)
--- NOTE | 2023-06-06 12:57 | Orthopedic Consultation ---
Date of Consultation June 06, 2023 Assessment & Plan (1) Closed fracture of neck of left femur: patient consulted re: left hip pain, CT scan showing impacted left femoral neck fracture with mild varus angulation. care discussed with Dr Simmons, it is recommended patient undergo left hip bipolar hemiarthroplasty. she is on Eliquis and last dose was noted as last evening. will make patient NPO after MN tonight for planned procedure tomorrow. patient will need medical clearance prior to procedure. risks and benefits of procedure discussed, she would like to proceed. she does live alone and will need placement after discharge. The risks and benefits have been discussed including, but not limited to, risk of infection, nerve injury, stiffness, loss of motion, failure to improve, etc. Reasonable outcomes and options of treatment were discussed. An explanation of appropriate alternatives to the procedure that may be advantageous were discussed and their risks and benefits, as well as the risks and benefits of not proceeding with treatment. I offered to answer any additional inquiries c oncerning the treatment involved. All the patient's questions were answered. The patient is agreeable, understanding of the treatment plan and alternatives, and wishes to proceed with the treatment plan. Please note the above document was generated using voice recognition software. It may contain grammatical, syntax or spelling errors. Any formal questions or concerns about the content, text or information contained within the body of this dictation should be directly addressed to the provider for clarification History of Present Illness Reason for Consultation: left hip pain Attending Physician: Peña Mulligan MD History of Present Illness Goldie is a 77-year-old female that we are consulted in regards to left hip pain. She states she had a fall approximately 2 weeks ago and landed on her [facility] side. She was seen and evaluated and had plain radiographs completed that did not show any acute findings and she was discharged home. She had continued pain over the next week and states she had a fall again at home when she was leaning over a coffee table, she did not seek treatment at that time since her prior x- rays were negative and thought it would improve on its own. She was seen by her physician at [facility] for possible troch bursa injections, she states when she described the pain to him he recommended that she go to the emergency room to have imaging completed. 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 propoxyphene AdvReac Intermediate GI UPSET, Verified 05/31/23 11:22 "DISORIENTED" amoxicillin AdvReac Mild VOMITING, Verified 05/31/23 11:22 GI UPSET baclofen AdvReac Mild disoriented Verified 05/31/23 11:22 nausea capsaicin [Diclopak] AdvReac Mild disoriented Verified 05/31/23 11:22 nausea clavulanic acid AdvReac Mild VOMITING, Verified 05/31/23 11:22 GI UPSET diclofenac [Diclopak] AdvReac Mild disoriented Verified 05/31/23 11:22 nausea Diclopak AdvReac Mild disoriented Verified 06/22/16 00:52 nausea codeine AdvReac Unknown pruritis Verified 05/31/23 11:22 Home Medications Medication Instructions Recorded Confirmed Type aspirin 81 mg tablet,delayed 81 mg PO PM 10/20/22 06/06/23 History release atorvastatin 80 mg tablet 80 mg PO PM 10/20/22 06/06/23 History ezetimibe 10 mg tablet 10 mg PO QAM 10/20/22 06/06/23 History icosapent ethyl 1 gram capsule 2 g PO BIDM 10/20/22 06/06/23 History levothyroxine 112 mcg tablet 112 mcg PO DAILYBB 10/20/22 06/06/23 History metoprolol succinate 25 mg 25 mg PO QAM 10/20/22 06/06/23 History tablet,extended release 24 hr omeprazole 40 mg capsule,delayed 40 mg PO DAILYBB 10/20/22 06/06/23 History release topiramate 100 mg tablet 100 mg PO QID 10/20/22 06/06/23 History apixaban 5 mg tablet (Eliquis) 5 mg PO BID 12/14/22 06/06/23 History cholecalciferol (vitamin D3) 125 125 mcg PO .NOON 12/14/22 06/06/23 History mcg (5,000 unit) tablet (Vitamin D3) oxcarbazepine 150 mg tablet See Rx Instructions .Route .COMPLEX 12/14/22 06/06/23 History (Trileptal) oxcarbazepine 300 mg tablet See Rx Instructions .Route .COMPLEX 12/14/22 06/06/23 History (Trileptal) folic acid 1 mg tablet 1 mg PO DAILY 04/04/23 06/06/23 History furosemide 20 mg tablet 30 mg PO DAILY 04/04/23 06/06/23 History gabapentin 100 mg capsule 100 mg PO TID 04/04/23 06/06/23 History magnesium chloride 64 mg 128 mg PO BID 04/04/23 06/06/23 History (magnesium chloride) tablet,delayed release pentoxifylline 400 mg 400 mg PO BID 04/04/23 06/06/23 History tablet,extended release tramadol 50 mg tablet 50 mg PO Q6H PRN Severe Pain 06/06/23 06/06/23 History (Scale Score 7-10) Patient History Medical History Diarrhea Hypomagnesemia SIADH (syndrome of inappropriate ADH production) Chronic pain DMII (diabetes mellitus, type 2) Hyponatremia Hypothyroidism (11/22/10) Hyperlipidemia (11/22/10) Gastroesophageal reflux disease (11/22/10) Coronary artery disease (11/22/10) Carotid artery stenosis (11/22/10) Benign hypertension (11/22/10) Acute non-ST segment elevation myocardial infarction (11/22/10) Spinal stenosis in cervical region Migraine History of adenomatous polyp of colon Osteoarthritis Cerebrovascular disease "old lacunar strokes on imaging" Surgical History H/O endarterectomy Status post coronary artery stent placement Status post hysterectomy Social History Smoking Status: Never smoker Tobacco Type: Cigarettes Second Hand Exposure: No; Do You Dip or Chew Tobacco: No; Hx Alcohol Use: No Hx Substance Use: No Preferred Language: Slovak Communication Ability: Effective Visual Impairment: Partially Limited Hearing Ability: Normal Shipping Manager Required: No Beliefs That Will Affect Care: None Current Living Situation: Alone Current Living Situation Comment: home alone in apt building Other Information That Helps Us Care for You: No Feels Safe at Home: Yes Safety Concerns: Feels Safe At This Time Diet: regular caffeine: Yes Assistive Devices: Cane, Denture - Upper, Denture - Lower, Scooter/Electric Scooter, Walker and Wheelchair Review of Systems Review of Systems: All systems reviewed & are unremarkable except as noted in HPI & below Constitutional: no fever, no chills and no sweats Respiratory: no cough and no dyspnea Cardiovascular: no chest pain, no dyspnea and no orthopnea Gastrointestinal: no abdominal pain, no nausea and no vomiting Musculoskeletal: as per Subjective / HPI Physical Exam Physical Exam: Vital Signs Temp Pulse Pulse Resp BP Pulse Ox O2 Del Method 06/06/23 13:37 Room Air 06/06/23 12:20 79 18 155/82 H 95 Room Air 06/06/23 08:33 64 18 168/73 H 97 Room Air 06/06/23 06:30 76 19 162/84 H 96 06/06/23 05:57 78 20 188/116 H 97 06/06/23 05:33 37.1 C 06/06/23 05:07 83 19 173/117 H 98 06/06/23 03:55 78 Intake and Output 06/05/23 06/06/23 06/06/23 22:59 06:59 14:59 Intake Total 262.667 / 262.667 Balance 262.667 / 262.667 Intake: IV 262.667 / 262.667 Magnesium Sulf ate / D5w 1 gm In 186.667 / 186.667 100 ml @ 50 ml s/hr IV Q2H [facility] Rx#:[id number] Sodium Chlorid e 0.9% 1,000 ml @ 76 / 76 40 mls/hr IV . Q24H ONE Rx#: [id number] Other: Weight 71 kg Weight Measureme nt Method Built in [facility] Patient Weight 06/07/23 06:59 Weight 71 kg Constitutional: WD/WN, vitals as above no acute distress Respiratory: normal respiratory effort, lungs clear to auscultation no respiratory distress, no labored breathing and does not use accessory muscles Cardiovascular: RRR, no murmur, no edema Gastrointestinal (Abdomen): normal bowel sounds, soft, nontender, no hepatosplenomegaly Musculoskeletal: Hip: + hip abnormal to inpsection (LEFT HIP), + deformity, + limited ROM of hip (secondary to pain) and + log roll test positive; no skin erythema and no ecchymosis Results & Data Vital Signs (Past 12 Hours) Vital Signs Temp Pulse Pulse Resp BP Pulse Ox O2 Del Method 06/06/23 12:20 79 18 155/82 H 95 Room Air 06/06/23 08:33 64 18 168/73 H 97 Room Air 06/06/23 06:30 76 19 162/84 H 96 06/06/23 05:57 78 20 188/116 H 97 06/06/23 05:33 37.1 C 06/06/23 05:07 83 19 173/117 H 98 06/06/23 03:55 78 Laboratory Results Laboratory Results WBC 6.72 K/ul (4.8-10.8) 06/06/23 08:21 RBC 3.20 M/uL (4.20-5.40) L 06/06/23 08:21 Hgb 9.7 g/dl (12.0-16.0) L 06/06/23 08:21 Hct 29.0 % (37.0-47.0) L 06/06/23 08:21 MCV 90.6 fL (80.0-100.0) 06/06/23 08:21 MCH 30.3 pg (25.0-34.0) 06/06/23 08:21 MCHC 33.4 g/dL (32.0-36.0) 06/06/23 08:21 RDW Std Deviation 44.8 fL (36.4-46.3) 06/06/23 08:21 RDW Coeff of Mine 13.6 % (11.5-14.5) 06/06/23 08:21 Plt Count 202 K/uL (130-400) 06/06/23 08:21 MPV 11.1 fL (9.4-12.4) 06/06/23 08:21 Immature Gran % (Auto) 0.3 % 06/06/23 08:21 Neut % (Auto) 71.2 % 06/06/23 08:21 Lymph % (Auto) 21.6 % 06/06/23 08:21 [place] % (Auto) 6.8 % 06/06/23 08:21 Eos % (Auto) 0.0 % 06/06/23 08:21 Baso % (Auto) 0.1 % 06/06/23 08:21 Neut # (Auto) 4.78 K/uL (1.40-6.50) 06/06/23 08:21 Lymph # (Auto) 1.45 K/uL (1.20-3.40) 06/06/23 08:21 [place] # (Auto) 0.46 K/uL (0.11-0.59) 06/06/23 08:21 Eos # (Auto) 0.00 K/uL (0.00-0.50) 06/06/23 08:21 Baso # (Auto) 0.01 K/uL (0.00-0.20) 06/06/23 08:21 Immature Gran # (Auto) 0.02 K/uL (0.01-0.20) 06/06/23 08:21 PT 11.0 Seconds (9.0-12.0) 06/06/23 08:21 INR 1.0 (0.9-1.1) 06/06/23 08:21 APTT 28 Seconds (-) 06/06/23 03:24 PTT Ratio 1.0 06/06/23 03:24 Sodium 134 mmol/L (136-145) L 06/06/23 03:24 Potassium 3.8 mmol/L (3.5-5.1) 06/06/23 03:24 Chloride 104 mmol/L (98-107) 06/06/23 03:24 Carbon Dioxide 23 mmol/L (21-32) 06/06/23 03:24 Anion Gap 7 (3-11) 06/06/23 03:24 BUN 23 mg/dl (6-23) 06/06/23 03:24 Creatinine 1.12 mg/dl (0.6-1.2) 06/06/23 03:24 Est Cr Clr Drug Dosing Not Reportable 06/06/23 03:24 Est GFR ( Amer) 54.5 ml/min 06/06/23 03:24 Est GFR (Non-Af Amer) 47.0 ml/min 06/06/23 03:24 BUN/Creatinine Ratio 20.5 (10-20) H 06/06/23 03:24 Glucose 70 mg/dl (70-99(Fasting)) 06/06/23 03:24 POC Glucose 123 mg/dl (70-99) H 06/06/23 12:51 Calcium 9.4 mg/dl (8.6-10.3) 06/06/23 03:24 Magnesium 1.3 mg/dl (1.7-2.4) L 06/06/23 03:24 Troponin I High Sens 10.9 pg/ml (0-14) 06/06/23 03:24 Blood Type A Positive 06/06/23 06:23 Antibody Screen NEGATIVE 06/06/23 06:[address] 06/06/23 04:11 CR Exam(s): CT PELVIS Without Contrast EXAM: CT Pelvis Without Intravenous Contrast CLINICAL HISTORY: Reason for exam: FELL PAIN AT LEFT SIDE OF PELVIS EVAL FOR FX.fell a few days ago, pain at left side most TECHNIQUE: Axial computed tomography images of the pelvis without intravenous contrast. CTDI is 30.64 mGy and DLP is 916.85 mGy-cm. Automated exposure control was utilized for the study. A dose lowering technique was utilized adhering to the principles of ALARA. COMPARISON: No relevant prior studies available. FINDINGS: Bowel: Colonic diverticulosis. No obstruction. No mucosal thickening. Appendix: No findings to suggest acute appendicitis. Intraperitoneal space: Unremarkable. No free air. No significant fluid collection. Bladder: Unremarkable. No stones. Reproductive: Unremarkable as visualized. Bones/joints: Acute impacted left femoral neck fracture with mild varus angulation. Consider orthopedics consultation. Chronic fracture of the right sacral ala extending to the right SI joint. Partially visualized fusion changes within the lumbar spine extending to S1. No dislocation. Soft tissues: Unremarkable. Vasculature: Partially visualized left SFA bypass. Atherosclerotic disease. Lymph nodes: Unremarkable. No enlarged lymph nodes. IMPRESSION: 1. Acute impacted left femoral neck fracture with mild varus angulation. Consider orthopedics consultation. 2. Chronic fracture of the right sacral ala extending to the right SI joint. 3. Colonic diverticulosis. Communications: Verify Receipt Electronically signed by: Stoney Trinidad MD 06/06/23 05:26 AM Chest X-Ray 06/06/23 05:38 XR chest 1V portable CLINICAL HISTORY: preop, hx tobacco abuse TECHNIQUE: Single frontal radiograph of the chest was obtained. Comparison: Comparison is made to chest radiograph 12/14/2022 FINDINGS: No lines and tubes are seen. Cardiomegaly is noted. The aortic arch is calcified. The lungs are clear. No evidence of pleural effusion or pneumothorax. IMPRESSION: No acute chest disease. ACT 112: Negative or not required by law. Electronically signed by: Valeriy Montoya M.D. 06/06/2023 7:52 AM Diagnostic Findings Laboratory Results WBC 6.72 K/ul (4.8-10.8) 06/06/23 08:21 RBC 3.20 M/uL (4.20-5.40) L 06/06/23 08:21 Hgb 9.7 g/dl (12.0-16.0) L 06/06/23 08:21 Hct 29.0 % (37.0-47.0) L 06/06/23 08:21 MCV 90.6 fL (80.0-100.0) 06/06/23 08:21 MCH 30.3 pg (25.0-34.0) 06/06/23 08:21 MCHC 33.4 g/dL (32.0-36.0) 06/06/23 08:21 RDW Std Deviation 44.8 fL (36.4-46.3) 06/06/23 08:21 RDW Coeff of Mine 13.6 % (11.5-14.5) 06/06/23 08:21 Plt Count 202 K/uL (130-400) 06/06/23 08:21 MPV 11.1 fL (9.4-12.4) 06/06/23 08:21 Immature Gran % (Auto) 0.3 % 06/06/23 08:21 Neut % (Auto) 71.2 % 06/06/23 08:21 Lymph % (Auto) 21.6 % 06/06/23 08:21 [place] % (Auto) 6.8 % 06/06/23 08:21 Eos % (Auto) 0.0 % 06/06/23 08:21 Baso % (Auto) 0.1 % 06/06/23 08:21 Neut # (Auto) 4.78 K/uL (1.40-6.50) 06/06/23 08:21 Lymph # (Auto) 1.45 K/uL (1.20-3.40) 06/06/23 08:21 [place] # (Auto) 0.46 K/uL (0.11-0.59) 06/06/23 08:21 Eos # (Auto) 0.00 K/uL (0.00-0.50) 06/06/23 08:21 Baso # (Auto) 0.01 K/uL (0.00-0.20) 06/06/23 08:21 Immature Gran # (Auto) 0.02 K/uL (0.01-0.20) 06/06/23 08:21 PT 11.0 Seconds (9.0-12.0) 06/06/23 08:21 INR 1.0 (0.9-1.1) 06/06/23 08:21 APTT 28 Seconds (21-31) 06/06/23 03:24 PTT Ratio 1.0 06/06/23 03:24 Sodium 134 mmol/L (136-145) L 06/06/23 03:24 Potassium 3.8 mmol/L (3.5-5.1) 06/06/23 03:24 Chloride 104 mmol/L (98-107) 06/06/23 03:24 Carbon Dioxide 23 mmol/L (21-32) 06/06/23 03:24 Anion Gap 7 (3-11) 06/06/23 03:24 BUN 23 mg/dl (6-23) 06/06/23 03:24 Creatinine 1.12 mg/dl (0.6-1.2) 06/06/23 03:24 Est Cr Clr Drug Dosing Not Reportable 06/06/23 03:24 Est GFR ( Amer) 54.5 ml/min 06/06/23 03:24 Est GFR (Non-Af Amer) 47.0 ml/min 06/06/23 03:24 BUN/Creatinine Ratio 20.5 (10-20) H 06/06/23 03:24 Glucose 70 mg/dl (70-99(Fasting)) 06/06/23 03:24 POC Glucose 87 mg/dl (70-99) 06/06/23 09:01 Calcium 9.4 mg/dl (8.6-10.3) 06/06/23 03:24 Magnesium 1.3 mg/dl (1.7-2.4) L 06/06/23 03:24 Troponin I High Sens 10.9 pg/ml (0-14) 06/06/23 03:24 Blood Type A Positive 06/06/23 06:23 Antibody Screen NEGATIVE 06/06/23 06:[address] 06/06/23 04:11 CR Exam(s): CT PELVIS Without Contrast EXAM: CT Pelvis Without Intravenous Contrast CLINICAL HISTORY: Reason for exam: FELL PAIN AT LEFT SIDE OF PELVIS EVAL FOR FX.fell a few days ago, pain at left side most TECHNIQUE: Axial computed tomography images of the pelvis without intravenous contrast. CTDI is 30.64 mGy and DLP is 916.85 mGy-cm. Automated exposure control was utilized for the study. A dose lowering technique was utilized adhering to the principles of ALARA. COMPARISON: No relevant prior studies available. FINDINGS: Bowel: Colonic diverticulosis. No obstruction. No mucosal thickening. Appendix: No findings to suggest acute appendicitis. Intraperitoneal space: Unremarkable. No free air. No significant fluid collection. Bladder: Unremarkable. No stones. Reproductive: Unremarkable as visualized. Bones/joints: Acute impacted left femoral neck fracture with mild varus angulation. Consider orthopedics consultation. Chronic fracture of the right sacral ala extending to the right SI joint. Partially visualized fusion changes within the lumbar spine extending to S1. No dislocation. Soft tissues: Unremarkable. Vasculature: Partially visualized left SFA bypass. Atherosclerotic disease. Lymph nodes: Unremarkable. No enlarged lymph nodes. IMPRESSION: 1. Acute impacted left femoral neck fracture with mild varus angulation. Consider orthopedics consultation. 2. Chronic fracture of the right sacral ala extending to the right SI joint. 3. Colonic diverticulosis. Communications: Verify Receipt Electronically signed by: Stoney Trinidad MD 06/06/23 05:26 AM Chest X-Ray 06/06/23 05:38 XR chest 1V portable CLINICAL HISTORY: preop, hx tobacco abuse TECHNIQUE: Single frontal radiograph of the chest was obtained. Comparison: Comparison is made to chest radiograph 12/14/2022 FINDINGS: No lines and tubes are seen. Cardiomegaly is noted. The aortic arch is calcified. The lungs are clear. No evidence of pleural effusion or pneumothorax.
[2023-06-06] MEDS: CHOLECALCIFEROL 125 MCG (5,000 UNITS) TAB PO SCH (13:13)
--- NOTE | 2023-06-06 15:11 | Electrocardiogram Report ---
Test Reason : Blood Pressure : / mmHG Vent. Rate : 079 BPM Atrial Rate : 079 BPM P-R Int : 152 ms QRS Dur : 078 ms QT Int : 360 ms P-R-T Axes : 057 031 055 degrees QTc Int : 412 ms Normal sinus rhythm Minimal voltage criteria for LVH, may be normal variant Abnormal ECG When compared with ECG of 28-MAY-2023 03:47, Nonspecific T wave abnormality no longer evident in Lateral leads Confirmed by Alec Bhat ([id number]) on 06/06/2023 3:10:26 PM Referred By: REFERRED SELF Confirmed By:Alec Bhat
[2023-06-06 15:51] LABS: ANTI-Xa, UFH(UnfractionatedHep 0.66 IU/ml (0.3-0.7)
--- NOTE | 2023-06-06 16:24 | Communication Note ---
Date of Service: June 06, 2023 77-year-old female with multiple medical problem was admitted with mechanical fall and fracture of the left hip. She remained stable following the fall and she will have proposed surgery by the orthopedic surgeon tomorrow. She remained hemodynamically stable. We left full progress note tomorrow. Dr Yasmin Mulligan
--- NOTE | 2023-06-06 16:26 | XRay Report ---
SINGLE VIEW PELVIS; 2 VIEWS LEFT HIP CLINICAL HISTORY: Left hip pain. FINDINGS: AP view of the pelvis with AP and crosstable lateral views of the left hip are compared to study dated 12/14/2022. The skeletal structures are osteopenic. There is an impacted and mildly subcap ital fracture of the left femur. Overlying soft tissue edema is noted. No additional fractures seen i nvolving the right hip or the bony pelvis. Mild to moderate degenerative changes noted in the hip clark nts. Degenerative sclerosis is noted in the sacroiliac joints. Fusion hardware is seen at the lumbosa cral junction. A Ding catheter is in place. There is atherosclerotic calcification of the femoral ar teries. IMPRESSION: Subcapital fracture of the left proximal femur. Electronically signed by: Manoj Burns M.D. 06/06/2023 4:25 PM
[2023-06-06] MEDS: ATORVASTATIN 40 MG TAB PO SCH (20:47)
[2023-06-06] MEDS: ASPIRIN 81 MG ECTAB PO SCH (20:47)
[2023-06-07] MEDS ORDERED: Nursing to Pharmacy Communication SCH (01:30)
[2023-06-07] MEDS: LEVOTHYROXINE SODIUM 112 MCG TABLET PO SCH (06:05)
[2023-06-07] MEDS: PANTOprazole 40 MG TAB PO SCH (06:05)
[2023-06-07 06:31] LABS: Basophils # (auto) 0.03 K/uL (0.00-0.20); Basophils % (auto) 0.5 %; Hematocrit (blood only) 29.6 % (37.0-47.0); Immature Granulocytes # (auto) 0.03 K/uL (0.01-0.20); Immature Granulocytes % (auto) 0.5 %; Lymphocytes # (auto) 1.84 K/uL (1.20-3.40); Mean Corpuscular Hemoglobin 30.2 pg (25.0-34.0); Mean Corpuscular Hgb Conc 33.8 g/dL (32.0-36.0); Mean Corpuscular Volume 89.4 fL (80.0-100.0); Mean Platelet Volume 11.1 fL (9.4-12.4); Monocytes # (auto) 0.56 K/uL (0.11-0.59); Monocytes % (auto) 9.7 %; Neutrophils # (auto) 3.29 K/uL (1.40-6.50); Neutrophils % (auto) 57.3 %; Platelet Count 207 K/uL (130-400); RDW Coefficient of Variation 13.6 % (11.5-14.5); RDW Standard Deviation 44.5 fL (36.4-46.3); Red Blood Count 3.31 M/uL (4.20-5.40); White Blood Count 5.75 K/ul (4.8-10.8)
[2023-06-07 06:43] LABS: BUN Creatinine Ratio 23.5 (10-20); Calcium 9.1 mg/dl (8.6-10.3); Creatinine Clr Calc Pharmacy 37.7 ml/min; Est GFR (Non-African American) 52.6 ml/min; Magnesium 1.8 mg/dl (1.7-2.4); Potassium 4.1 mmol/L (3.5-5.1)
[2023-06-07] MEDS: METOPROLOL SUCC 25MG EXT REL TAB PO SCH (11:19)
--- NOTE | 2023-06-07 13:29 | History & Physical Bridge Note ---
Date of Service June 07, 2023 History & Physical Bridge Note I have examined the patient, reviewed the History & Physical and in the interval since the performance of the History & Physical I have noted the following changes of clinical significance: no changes noted
[2023-06-07] MEDS: LACTATED RINGER'S 1,000 ML IV SCH (13:55)
[2023-06-07] MEDS ORDERED: PROPOFOL IV EMULSION 10 MG/ML 20 ML VIAL IV ONE (14:02)
[2023-06-07] MEDS ORDERED: fentaNYL citrate PF 100 MCG/2 ML VIAL ONE ×2 (14:02→15:01)
[2023-06-07] MEDS ORDERED: ONDANSETRON INJ 2 MG/ML 2 ML VIAL ONE (14:04)
[2023-06-07] MEDS ORDERED: LIDOCAINE 2% 2 ML VIAL/AMP(20MG/ML) INFIL ONE (14:04)
--- NOTE | 2023-06-07 14:07 | Anesthesiology Consultation ---
Date of Service June 07, 2023 Assessment & Plan Chart Review Chart Review: Acceptable Risk for Surgery and Patient NOT seen in Pre Admission Testing Consults Requested none ASA ASA3 Proposed Anesthesia Anesthesia Type: General Risk / Benefits Reviewed With: PT / POA / Parent / Guardian, Accepts Plan and Informed Consent Obtained History Surgery Operation Date: 06/07/23 07:00 Proposed Procedures p Left Anterior Hip Arthroplasty - Freddy Herrera MD Height/Weight Height: 4 ft 10 in Weight: 70.1 kg Allergies Allergy/AdvReac Type Severity Reaction Status Date / Time chlorhexidine Allergy Intermediate SEVERE RED Verified 05/31/23 11:22 AND BURNING SKIN amitriptyline Allergy Unknown PT UNSURE Verified 05/31/23 11:22 OF RXN dipyridamole Allergy Unknown PT DOESN'T Verified 05/31/23 11:22 KNOW WHAT HAPPENED NSAIDS (Non-Steroidal AdvReac Intermediate NOT TO Verified 05/31/23 11:22 Anti-Inflamma TAKE PER HER EMPLOYEE'S REPRESENTATIVE propoxyphene AdvReac Intermediate GI UPSET, Verified 05/31/23 11:22 "DISORIENTED" amoxicillin AdvReac Mild VOMITING, Verified 05/31/23 11:22 GI UPSET baclofen AdvReac Mild disoriented Verified 05/31/23 11:22 nausea capsaicin [Diclopak] AdvReac Mild disoriented Verified 05/31/23 11:22 nausea clavulanic acid AdvReac Mild VOMITING, Verified 05/31/23 11:22 GI UPSET diclofenac [Diclopak] AdvReac Mild disoriented Verified 05/31/23 11:22 nausea Diclopak AdvReac Mild disoriented Verified 06/22/16 00:52 nausea codeine AdvReac Unknown pruritis Verified 05/31/23 11:22 Medications Home Medications Medication Instructions Recorded Confirmed Last Taken aspirin 81 mg tablet,delayed 81 mg PO PM 10/20/22 06/06/23 Unknown release atorvastatin 80 mg tablet 80 mg PO PM 10/20/22 06/06/23 Unknown ezetimibe 10 mg tablet 10 mg PO QAM 10/20/22 06/06/23 Unknown icosapent ethyl 1 gram capsule 2 g PO BIDM 10/20/22 06/06/23 Unknown levothyroxine 112 mcg tablet 112 mcg PO DAILYBB 10/20/22 06/06/23 Unknown metoprolol succinate 25 mg 25 mg PO QAM 10/20/22 06/06/23 Unknown tablet,extended release 24 hr omeprazole 40 mg capsule,delayed 40 mg PO DAILYBB 10/20/22 06/06/23 Unknown release topiramate 100 mg tablet 100 mg PO QID 10/20/22 06/06/23 Unknown apixaban 5 mg tablet (Eliquis) 5 mg PO BID 12/14/22 06/06/23 Unknown cholecalciferol (vitamin D3) 125 125 mcg PO .NOON 12/14/22 06/06/23 Unknown mcg (5,000 unit) tablet (Vitamin D3) oxcarbazepine 150 mg tablet See Rx Instructions .Route .COMPLEX 12/14/22 06/06/23 Unknown (Trileptal) oxcarbazepine 300 mg tablet See Rx Instructions .Route .COMPLEX 12/14/22 06/06/23 Unknown (Trileptal) folic acid 1 mg tablet 1 mg PO DAILY 04/04/23 06/06/23 Unknown furosemide 20 mg tablet 30 mg PO DAILY 04/04/23 06/06/23 Unknown gabapentin 100 mg capsule 100 mg PO TID 04/04/23 06/06/23 Unknown magnesium chloride 64 mg 128 mg PO BID 04/04/23 06/06/23 Unknown (magnesium chloride) tablet,delayed release pentoxifylline 400 mg 400 mg PO BID 04/04/23 06/06/23 Unknown tablet,extended release tramadol 50 mg tablet 50 mg PO Q6H PRN Severe Pain 06/06/23 06/06/23 Unknown (Scale Score 7-10) Active Medications Generic Name Dose Route Start Last Admin Trade Name Twin PRN Reason Stop Dose Admin Acetaminophen 650 mg 06/06/23 06:23 06/06/23 12:05 Acetaminophen 325 Mg Tab PO 07/06/23 06:22 650 mg QID PRN Administration pain/fever Aspirin 81 mg 06/06/23 21:00 06/06/23 20:47 Aspirin 81 Mg Ectab PO 07/06/23 20:59 81 mg PM DAJA Administration Atorvastatin Calcium 80 mg 06/06/23 21:00 06/06/23 20:47 Atorvastatin 40 Mg Tab PO 07/06/23 20:59 80 mg PM DAJA Administration Ezetimibe 10 mg 06/06/23 09:00 06/07/23 11:20 Ezetimibe 10 Mg Tab PO 07/06/23 08:59 10 mg QAM DAJA Administration Folic Acid 1 mg 06/06/23 09:00 06/07/23 11:19 Folic Acid 1 Mg Tab PO 07/06/23 08:59 1 mg DAILY DAJA Administration Gabapentin 100 mg 06/06/23 09:00 06/07/23 10:49 Gabapentin 100 Mg Cap PO 07/06/23 08:59 100 mg TID DAJA Administration Heparin Sodium/Dextrose 25,000 units in 500 mls @ 0 mls/hr 06/06/23 08:00 06/07/23 01:08 Heparin Sodium/Dextrose IV 07/06/23 07:59 0 units/hr .Q0M DAJA 0 mls/hr Titration Protocol 0 UNITS/HR Lactated Ringer's 1,000 mls @ 15 mls/hr 06/07/23 14:00 06/07/23 13:55 Lr IV 07/07/23 13:59 15 mls/hr .Q24H DAJA Administration Insulin Aspart 0 units 06/06/23 07:30 06/07/23 08:00 Insulin Aspart Per Unit Charge SC 07/06/23 07:29 Not Given ACHS DAJA Levothyroxine Sodium 112 mcg 06/07/23 06:30 06/07/23 06:05 Levothyroxine Sodium 112 Mcg Tablet PO 07/07/23 06:29 112 mcg DAILYBB DAJA Administration Metoprolol Succinate 25 mg 06/07/23 09:00 06/07/23 11:19 Metoprolol Succ 25mg Ext Rel Tab PO 07/07/23 08:59 25 mg QAM DAJA Administration Miscellaneous 1 each 06/06/23 16:00 06/07/23 09:32 (Icosapent Ethyl 1 Gram Capsule) - Order Awaiting Action N/A 07/06/23 15:59 Not Given QS DAJA Oxcarbazepine 450 mg 06/06/23 09:00 06/06/23 20:48 Oxcarbazepine 150 Mg Tablet PO 07/06/23 08:59 450 mg BID DAJA Administration Pantoprazole Sodium 40 mg 06/07/23 06:30 06/07/23 06:05 Pantoprazole 40 Mg Tab PO 07/07/23 06:29 40 mg DAILYBB DAJA Administration Pentoxifylline 400 mg 06/06/23 09:00 06/07/23 11:21 Pentoxifylline 400mg Ext Rel Tab PO 07/06/23 08:59 400 mg BID DAJA Administration Topiramate 100 mg 06/06/23 09:00 06/07/23 11:18 Topiramate 100 Mg Tab PO 07/06/23 08:59 100 mg QID DAJA Administration NPO Date Last Intake of Fluids: 06/07/23 Last Intake of Fluids Comment: multiple sips with meds throught day. Date Last Intake of Solids: 06/06/23 Time Last Intake of Solids: 18:00 Past Medical History Medical History Diarrhea Hypomagnesemia SIADH (syndrome of inappropriate ADH production) Chronic pain DMII (diabetes mellitus, type 2) Hyponatremia Hypothyroidism (11/22/10) Hyperlipidemia (11/22/10) Gastroesophageal reflux disease (11/22/10) Coronary artery disease (11/22/10) Carotid artery stenosis (11/22/10) Benign hypertension (11/22/10) Acute non-ST segment elevation myocardial infarction (11/22/10) Spinal stenosis in cervical region Migraine History of adenomatous polyp of colon Osteoarthritis Cerebrovascular disease "old lacunar strokes on imaging" Exercise / Class Metabolic Activity II 4-5 Yardwork/Stairs/Walk up hill Past Surgical History Surgical History H/O endarterectomy Status post coronary artery stent placement Status post hysterectomy Past Anesthesia History No Hx of Anesthesia Complications and No Family Hx of Anesthesia Complications History of PONV No Hx of PONV and No Hx of Motion Sickness Social History Smoking Status: Never smoker Do You Dip or Chew Tobacco: No Hx Alcohol Use: No Hx Substance Use: No substance use type: does not use Physical Exam Vital Signs Last Vital Signs Temp 37.0 C 06/07/23 13:16 Pulse 72 06/07/23 13:16 Resp 22 06/07/23 13:16 BP 188/97 H 06/07/23 13:16 Pulse Ox 98 06/07/23 13:16 O2 Del Method Room Air 06/07/23 13:16 ENMT Mouth: + edentulous; no dentition abnormality Thyromental Distance: > or= 3.5 Finger Breadths Mallampati Class: II Neck normal visual inspection Respiratory normal respiratory effort Auscultation: lungs clear to auscultation bilaterally Cardiovascular Rate/Rhythm: regular rate and regular rhythm Psychiatric Orientation: alert Testing Laboratory Results 06/07/23 06:04 06/07/23 06:04 PT 11.0 Seconds (9.0-12.0) 06/06/23 08:21 INR 1.0 (0.9-1.1) 06/06/23 08:21 APTT 28 Seconds (21-31) 06/06/23 03:24 Blood Type A Positive 06/06/23 06:23 Antibody Screen NEGATIVE 06/06/23 06:23 06/07/23 06/07/23 06/07/23 13:21 12:03 07:25 POC Glucose 77 79 77
[2023-06-07] MEDS ORDERED: ATROPINE SULFATE 0.1 MG/ML 10ML SYR IV PRN (14:08)
[2023-06-07] MEDS ORDERED: ONDANSETRON INJ 2 MG/ML 2 ML VIAL IV PRN ×2 (14:08→17:19)
[2023-06-07] MEDS ORDERED: ePHEDrine sulfate 50 MG/ML AMP IV PRN (14:08)
[2023-06-07] MEDS ORDERED: PROMETHAZINE HCL 6.25 MG in SODIUM CHLORIDE 0.9% 50 ML IV PRN (14:08)
--- NOTE | 2023-06-07 14:09 | History & Physical Bridge Note ---
Date of Service June 07, 2023 History & Physical Bridge Note I have examined the patient, reviewed the History & Physical and in the interval since the performance of the History & Physical I have noted the following changes of clinical significance: Patient will be having a total hip instead of a bipolar
[2023-06-07] MEDS: ceFAZolin 2000MG 2,000 MG/15 ML SYR IV ONE (14:15)
--- NOTE | 2023-06-07 14:37 | Hospitalist Progress Note ---
Date of Service June 07, 2023 Assessment & Plan (1) Closed fracture of neck of left femur: Plan: Age-related osteoporosis with possible pathological fracture Secondary to mechanical fall. Orthopedics consult-appreciating input and recommendation Hold Eliquis for now in anticipation of procedure. Last dose was 8 PM last night. IV heparin while Eliquis on hold Recommend holding IV heparin 6 hours before surgery. Will have left anterior hip arthroplasty today Pain medications PT and OT evaluation following the procedure Acceptable risk for cardiac complications resulting from prospective procedure Revised Cardiac Risk Index (RCRI): 1. High-risk type of surgery (examples include vascular and any open intraperitoneal or intrathoracic procedures). No 2. History of ischemic heart disease (history of myocardial infarction or positive exercise test, current compliant of chest pain considered to be secondary to myocardial ischemia, use of nitrate therapy, or ECG with pathological Q waves; do not count prior coronary revascularization procedure unless one of the other criteria for ischemic heart disease is present). Yes 3. History of heart failure. No 4. History of cerebrovascular disease. Yes 5. Diabetes mellitus requiring treatment with insulin. No 6. Preoperative serum creatinine >2.0. No Pt has revised cardiac index score of 2 points. (Class III Risk.) 10.1 % 30-day risk of , MD, or cardiac arrest. Moderate risk for cardiac complications if surgery recommended by Orthopedics and patient/family agreeable to attendant procedural benefits and risks.. Hypertensive urgency secondary to above Will continue home medications Additional medications as needed to control blood pressure CAD status post stent, stable except for elevated BP concerns on outpatient cardiology visit last month, no inducible ischemia on nuclear stress test February 2023 History PVD status post surgery Denies any chest pain, palpitation or shortness of breath DM2 diet-controlled, well-controlled as of recent hemoglobin A1c of 5.06 January 2023 ISS BG goal 1 10-1 40, carb count coverage Other chronic medical conditions as below: Chronic hyponatremia secondary to SIADH, nephrology recommends 1.5 L fluid res triction at home Hypothyroidism, euthyroid as of recent outpatient TSH Chronic anemia, hemoglobin at baseline history of CVA Hyperlipidemia on statin Rx Mood disorder, stable Past tobacco abuse DVT prophylaxis. history of DVT on Eliquis Low-dose IV heparin Full code Patient requests for daughter to be given periodic updates regarding care. Miss Krystin Trujillo, contact #[phone]. Text document was generated using Dragon voice recognition software. It may contain grammatical or spelling errors. Kindly contact undersigned for clarification of any documentation item in question. Admission and Anticipated Discharge Date Admission Date: June 06, 2023 Subjective 06/07/2023 The patient was seen and examined in medical telemetry unit She will be going for left anterior hip arthroplasty sometime this morning Complains of pain at the left hip with movement but denies any other significant symptoms Review of Systems Review of Systems: All systems reviewed and are unremarkable except as noted below Musculoskeletal: Pain in the left hip with any movement of the left lower extremity Physical Exam Physical Exam: Lying in bed comfortably Constitutional: well developed, well nourished, + ill appearing and + obese Eyes: PERRL, conjunctivae normal, anicteric sclerae ENMT: external ear and nose normal, oropharynx normal Neck: trachea midline, no thyromegaly Respiratory: no respiratory distress Auscultation: + diminished lung sounds and + crackles (Minimal crackles at the bases) Cardiovascular: Rate/Rhythm: regular rate and regular rhythm; not tachycardic Heart Sounds: normal S1, normal S2 and + murmur Extremities: + edema (Trace edema bilaterally) Gastrointestinal (Abdomen): Inspection/Auscultation: normal bowel sounds; abdomen not distended Percussion/Palpation: abdomen soft; abdomen nontender Musculoskeletal: Any movement of the left lower extremity produces pain in the left hip Neurologic: normal touch/pain/proprioception and moves all extremities; no focal motor deficits Psychiatric: A+Ox3, euthymic affect Lymphatic: no cervical or axillary lymphadenopathy Results & Data Results & Data Vital Signs (Past 12 Hours) Vital Signs Temp Pulse Pulse Resp BP Pulse Ox O2 Del Method 06/07/23 13:16 37.0 C 72 22 188/97 H 98 Room Air 06/07/23 12:00 36.9 C 72 15 172/79 H 97 Room Air 06/07/23 08:00 36.8 C 73 14 177/74 H 97 Room Air 06/07/23 07:19 91 H 06/07/23 03:36 36.6 C 71 18 140/80 97 Room Air Laboratory Results Short CBC 06/07/23 Range/Units 06:04 WBC 5.75 (4.8-10.8) K/ul Hgb 10.0 L (12.0-16.0) g/dl Hct 29.6 L (37.0-47.0) % Plt Count 207 (130-400) K/uL BMP 06/07/23 06:04 Sodium 132 L Potassium 4.1 Chloride 105 Carbon Dioxide 23 BUN 24 H Creatinine 1.02 Glucose 85 Calcium 9.1 Medications Administered Current Inpatient Medications Acetaminophen (Acetaminophen 325 Mg Tab) 650 mg PO QID PRN PRN Reason: pain/fever Stop: 07/06/23 06:22 Last Admin: 06/06/23 12:05 Dose: 650 mg Aspirin (Aspirin 81 Mg Ectab) 81 mg PO PM DAJA Stop: 07/06/23 20:59 Last Admin: 06/06/23 20:47 Dose: 81 mg Atorvastatin Calcium (Atorvastatin 40 Mg Tab) 80 mg PO PM DAJA Stop: 07/06/23 20:59 Last Admin: 06/06/23 20:47 Dose: 80 mg Atropine Sulfate (Atropine Sulfate 0.1 Mg/Ml 10ml Syr) 0.5 mg IV Q1M PRN PRN Reason: PACU Use-HR<40 &/or Bradycardi Stop: 06/07/23 22:08 Bisacodyl (Bisacodyl 10 Mg Supp) 10 mg IN DAILY PRN PRN Reason: Constipation Stop: 07/06/23 08:32 Dextrose (Dextrose 50% 50 Ml Syringe) 25 - 50 ml IV UD PRN; Protocol PRN Reason: Hypoglycemia Protocol Stop: 07/06/23 06:23 Ezetimibe (Ezetimibe 10 Mg Tab) 10 mg PO QAM [facility] Stop: 07/06/23 08:59 Last Admin: 06/07/23 11:20 Dose: 10 mg Ephedrine Sulfate (Ephedrine Sulfate 50 Mg/Ml Amp) 5 mg IV Q5M PRN PRN Reason: PACU Use Only-SBP<90 mmHg Stop: 06/07/23 22:08 Fentanyl Citrate (Fentanyl Citrate Pf 100 Mcg/2 Ml Vial) 50 mcg IV Q5M PRN PRN Reason: PACU Use Only-Pain Stop: 06/07/23 22:08 Folic Acid (Folic Acid 1 Mg Tab) 1 mg PO DAILY DAJA Stop: 07/06/23 08:59 Last Admin: 06/07/23 11:19 Dose: 1 mg Gabapentin (Gabapentin 100 Mg Cap) 100 mg PO TID DAJA Stop: 07/06/23 08:59 Last Admin: 06/07/23 10:49 Dose: 100 mg Glucagon (Glucagon For Inj 1 Mg Vial) 1 mg SQ UD PRN; Protocol PRN Reason: Hypoglycemia Protocol Stop: 07/06/23 06:23 Glucose (Glucose 10 Tab/Tube) 4 - 8 tab PO UD PRN; Protocol PRN Reason: Hypoglycemia Treatment Stop: 07/06/23 06:23 Glucose (Glucose 40% Gel 15 Gm Tube) 15 - 30 gm PO UD PRN; Protocol PRN Reason: Hypoglycemia Protocol Stop: 07/06/23 06:23 Hydromorphone HCl (Hydromorphone Inj 0.5 Mg/0.5 Ml Syr) 0.25 mg IV Q4H PRN PRN Reason: Pain Stop: 06/20/23 06:22 Promethazine HCl 6.25 mg/ (Sodium Chloride) 50.25 mls @ 201 mls/hr IV Q6H PRN PRN Reason: Nausea And Vomiting Stop: 07/06/23 06:22 Heparin Sodium/Dextrose (Heparin Sodium/Dextrose) 25,000 units in 500 mls @ 0 mls/hr IV .Q0M [facility]; Protocol Stop: 07/06/23 07:59 Last Titration: 06/07/23 01:08 Dose: 0 units/hr, 0 mls/hr Ropivacaine 246 mg/ Ketorolac Tromethamine 30 mg/Epinephrine HCl 0.5 mg/ Sodium Chloride 100.7 mls @ 0 mls/hr INFIL TODAY@0600 [facility]; Protocol Stop: 06/07/23 14:16 Lactated Ringer's (Lr) 1,000 mls @ 15 mls/hr IV .Q24H [facility] Stop: 07/07/23 13:59 Last Infusion: 06/07/23 14:12 Dose: 0 mls/hr Promethazine HCl 6.25 mg/ (Sodium Chloride) 50.25 mls @ 204 mls/hr IV ONCE PRN PRN Reason: PACU Use Only-Nausea/Vomiting Stop: 06/07/23 22:09 Insulin Aspart (Insulin Aspart Per Unit Charge) 0 units SC ACHS [facility] Stop: 07/06/23 07:29 Last Admin: 06/07/23 08:00 Dose: Not Given Levothyroxine Sodium (Levothyroxine Sodium 112 Mcg Tablet) 112 mcg PO DAILYBB [facility] Stop: 07/07/23 06:29 Last Admin: 06/07/23 06:05 Dose: 112 mcg Metoprolol Succinate (Metoprolol Succ 25mg Ext Rel Tab) 25 mg PO QAM [facility] Stop: 07/07/23 08:59 Last Admin: 06/07/23 11:19 Dose: 25 mg Miscellaneous (Carbohydrates For Hypoglycemia ) 15 - 30 gm PO UD PRN PRN Reason: Hypoglycemia Protocol Stop: 07/06/23 06:23 Miscellaneous ((Icosapent Ethyl 1 Gram Capsule) - Order Awaiting Action) 1 each N/A QS [facility] Stop: 07/06/23 15:59 Last Admin: 06/07/23 09:32 Dose: Not Given Naloxone HCl (Naloxone Hcl 0.4 Mg/1 Ml Vial/Carp) 0.1 mg IV UD PRN PRN Reason: Opiate Overdose Stop: 07/06/23 08:32 Ondansetron HCl (Ondansetron Inj 2 Mg/Ml 2 Ml Vial) 4 mg IV ONCE PRN PRN Reason: PACU Use Only-Nausea/Vomiting Stop: 06/07/23 22:08 Oxcarbazepine (Oxcarbazepine 150 Mg Tablet) 450 mg PO BID [facility] Stop: 07/06/23 08:59 Last Admin: 06/06/23 20:48 Dose: 450 mg Oxycodone HCl (Oxycodone Hcl Ir 5 Mg Tab (Immediate Release)) 5 mg PO Q4H PRN PRN Reason: Pain Stop: 06/20/23 05:34 Pantoprazole Sodium (Pantoprazole 40 Mg Tab) 40 mg PO DAILYBB [facility] Stop: 07/07/23 06:29 Last Admin: 06/07/23 06:05 Dose: 40 mg Pentoxifylline (Pentoxifylline 400mg Ext Rel Tab) 400 mg PO BID [facility] Stop: 07/06/23 08:59 Last Admin: 06/07/23 11:21 Dose: 400 mg Topiramate (Topiramate 100 Mg Tab) 100 mg PO QID [facility] Stop: 07/06/23 08:59 Last Admin: 06/07/23 11:18 Dose: 100 mg Vitamin D (Cholecalciferol 5,000 Units 125 Mcg Tab) 125 mcg PO DAILY@1200 [facility] Stop: 07/07/23 11:59
[2023-06-07] MEDS ORDERED: ROCURONIUM BROMIDE 10 MG/ML 5 ML VIAL IV ONE (14:49)
[2023-06-07] MEDS: ORTHO JOINT ANESTHETIC ONE (15:27)
[2023-06-07] MEDS: ROPIVACAINE 0.5% HCL/PF 246 MG, EPINEPHrine 30MG/30ML (OR USE) 0.5 MG in SODIUM CHLORID... INFIL SCH (15:28)
[2023-06-07] MEDS: ROPIVACAINE 0.5% HCL/PF 246 MG, Ketorolac (*for OR use only*) 30 MG, EPINEPHrine 30MG/3... INFIL SCH (15:28)
[2023-06-07] MEDS ORDERED: GLYCOPYRROLATE 0.2 MG/ML VIAL ONE (15:42)
[2023-06-07] MEDS ORDERED: NEOSTIGMINE METHYLSULFATE 1 MG/ML 10ML VIAL ONE (15:42)
--- NOTE | 2023-06-07 15:50 | Post Operative Brief Note ---
Immediate Post Op Note v1 Date of Surgery June 07, 2023 Pre & Post Diagnosis Operation Date: 06/07/23 07:00 Pre-Op Diagnosis: Closed fracture of neck of left femur Post-Op Diagnosis: Closed fracture of neck of left femur I identified the patient and participated in the time-out.: Yes Procedure Operation Date: 06/07/23 07:00 Actual Procedures p Left Anterior Hip Arthroplasty - Freddy Herrera MD Surgeon Freddy Herrera MD Target Developer Quoc Ball PAC Estimated Blood Loss 100 Findings Consistent with Post-Op Diagnosis Drains Ding Catheter
--- NOTE | 2023-06-07 15:56 | Operative Report ---
Post Operative Report Pre & Post Diagnosis Operation Date: 06/07/23 07:00 Pre-Op Diagnosis: Closed fracture of neck of left femur Post-Op Diagnosis: Closed fracture of neck of left femur I identified the patient and participated in the time-out.: Yes Procedure Operation Date: 06/07/23 07:00 Actual Procedures p Left Anterior Hip Arthroplasty - Freddy Herrera MD Surgeon Freddy Herrera MD Transformer Inspector Quoc Ball PAC Estimated Blood Loss 100 Findings Consistent with Post-Op Diagnosis Displaced subcapital hip fracture the hip did show moderate degenerative changes and periarticular osteophytes Specimens femoral head and bone and cartilage fragments Complications none Indications components used: [employer] Polar cemented hip system: Acetabulum size 46 with 25 mm dome screw and Oreo Oxinium liner. Femur size 2 standard offset with 0 neck length 22 mm Oxinium inner dual mobility head Description of Procedure following satisfactory general anesthesia with an LMA the patient was supine on the operating room table. The left leg was placed in the traction device in the right leg in the well-leg lowe. Positioning was confirmed with fluoroscopy. The leg was prepared with DuraPrep and draped sterilely. A surgical timeout was performed. An anterior approach was performed in the interval between the sartorius and tensor muscles. The circumflex femoral vessels were identified and coagulated. An anterior capsulotomy was performed exposing the fracture femoral neck and head. Fluoroscopy was used to confirm appropriate femoral neck resection level which was completed and the fracture piece of the femoral neck and femoral head were removed. The acetabulum showed the changes noted above. The acetabular self-retaining retractor was placed. Acetabular preparation was completed with excision of some periarticular osteophytes and calcified labral tissue. Reaming was then completed under direct vision. A 46 shell was impacted into a healthy bed into a position of 35 to 40 degrees of abduction and 25 degrees of anteversion confirmed with fluoroscopy. A dome screw was placed followed by the Oreo liner. An additional moderate-sized inferior osteophyte was removed. Local anesthetic was placed and the wound was irrigated. The leg was placed into a position of extension abduction and external rotation. The femoral canal was identified and was prepared up to the size 2. A trial reduction with a standard offset neck and a 0 neck length inner dual mobility head was performed. Fluoroscopy showed very good fit and fill of the proximal canal very good orientation of the components and orthodox of leg length and offset at the level of the lesser trochanter. The hip was dislocated. The trial component removed. A cement restriction plug was placed. The canal was curetted irrigated and dried. Third-generation cement technique was used to cement a size 2 standard offset stem with a Teresa Z be cement. When the cemented hardened the final head and dual mobility shell were placed and the hip was reduced with fluoroscopy showing similar findings. The wound was irrigated with 500 cc of experience irrigation. There was very little bleeding and a drain was not used. The tensor fascia was closed with a running suture of 0 strata fix as well as the deeper subcutaneous fat layer. The most superficial layer was closed with 3 oh strata fix. Prineo dressing and negative pressure wound dressing were applied. The patient was returned to her bed in stable condition. Note: Quoc BROCK was present and assisted throughout due to the complicated nature of this case. He help with preparation and set up an orthopedic assistant throughout. He assisted with hemostasis and exposure throughout the procedure. He also closed the fascial subcutaneous and skin layers and applied the postop dressing. I attest to the content of the Intraoperative Record and any orders documented therein. Any exceptions are noted below.
[2023-06-07] MEDS: fentaNYL citrate PF 100 MCG/2 ML VIAL IV PRN (16:11)
[2023-06-07] MEDS: ACETAMINOPHEN 1,000 MG/100 ML VIAL IV STA (16:24)
[2023-06-07] MEDS: ACETAMINOPHEN 1000 MG/100 ML IV IV ONE (16:24)
[2023-06-07] MEDS: diphenhydrAMINE 50 MG/ML VIAL IV STA (16:45)
--- NOTE | 2023-06-07 16:52 | Anesthesiology Progress Note ---
Date of Service June 07, 2023 Anesthesia Post Procedure Vital Signs Vital Signs: Temp Pulse Pulse Pulse Resp BP Pulse Ox 06/07/23 16:45 83 16 160/58 H 98 06/07/23 16:35 81 17 155/59 H 100 06/07/23 16:25 88 12 161/68 H 100 06/07/23 16:15 74 18 161/55 H 100 06/07/23 16:05 36.1 C L 80 14 162/49 H 100 06/07/23 13:16 37.0 C 72 22 188/97 H 98 06/07/23 12:00 36.9 C 72 15 172/79 H 97 06/07/23 08:00 36.8 C 73 14 177/74 H 97 06/07/23 07:19 91 H 06/07/23 03:36 36.6 C 71 18 140/80 97 06/06/23 23:00 36.6 C 80 18 152/75 H 96 06/06/23 22:00 77 06/06/23 19:00 36.7 C 85 18 145/69 H 95 O2 Del Method O2 Flow Rate 06/07/23 16:45 Room Air 06/07/23 16:35 Oxymask 2 06/07/23 16:25 Oxymask 2 06/07/23 16:15 Oxymask 5 06/07/23 16:05 Oxymask 5 06/07/23 13:16 Room Air 06/07/23 12:00 Room Air 06/07/23 08:00 Room Air 06/07/23 07:19 06/07/23 03:36 Room Air 06/06/23 23:00 Room Air 06/06/23 22:00 06/06/23 19:00 Room Air Pain Intensity Left Hip: Pain Intensity: 10 Transfer of Care Handoff Completed per policy Notes Mental Status: alert / awake / arousable Patient Amnestic to Procedure: Yes Nausea / Vomiting: adequately controlled Pain: adequately controlled Airway Patency, RR, SpO2: stable & adequate BP & HR: stable & adequate Hydration State: stable & adequate Anesthetic Complications: no major complications apparent
[2023-06-07] MEDS ORDERED: METOCLOPRAMIDE HCL INJ 5 MG/ML 2 ML VIAL IV PRN (17:19)
[2023-06-07] MEDS ORDERED: NALOXONE HCL 0.4 MG/1 ML VIAL/CARP IV PRN (17:19)
[2023-06-07] MEDS ORDERED: MAGNESIUM HYDROXIDE SUSP 30 ML UDC PO PRN (17:19)
--- NOTE | 2023-06-07 17:26 | Fluoroscopy Report ---
FL hip LT 1V CLINICAL HISTORY: LEFT ANTERIOR TOTAL HIP ARTHROPLASTY COMPARISON STUDY: None. FLUOROSCOPY TIME: 8 seconds. FLUOROSCOPY IMAGES: 2 Ka,r: 1.1 mGy FINDINGS: There is a left total hip arthroplasty. The hardware is intact. No fracture or dislocation. IMPRESSION: Fluoroscopic assistance as above. ACT 112: Negative or not required by law. Electronically signed by: Srini Serna M.D. 06/07/2023 5:25 PM
[2023-06-07] MEDS: diphenhydrAMINE 50 MG/ML VIAL ONE (17:28)
[2023-06-07] MEDS: SODIUM CHLORIDE 0.9% 1,000 ML IV SCH (17:44)
[2023-06-07] MEDS: oxyCODONE HCL IR 5 MG TAB (IMMEDIATE RELEASE) PO PRN (17:44)
[2023-06-07] MEDS: CHOLECALCIFEROL 125 MCG (5,000 UNITS) TAB PO SCH (17:46)
[2023-06-07] MEDS: DOCUSATE SODIUM 100 MG CAP PO SCH (20:03)
[2023-06-07] MEDS: SENNA 8.6 MG TAB PO SCH (20:07)
[2023-06-07] MEDS: MAGNESIUM CHLORIDE W/CALCIUM 64MG DELAYED REL TAB PO SCH (22:44)
[2023-06-07] MEDS: ceFAZolin 1000MG 1,000 MG/7.5 ML SYR IV SCH (23:03)
[2023-06-08] MEDS: traMADol HCL 50 MG TABLET PO PRN (06:15)
[2023-06-08 07:02] LABS: Basophils # (auto) 0.02 K/uL (0.00-0.20); Basophils % (auto) 0.3 %; Eosinophils # (auto) 0.01 K/uL (0.00-0.50); Eosinophils % (auto) 0.1 %; Hematocrit (blood only) 24.9 % (37.0-47.0); Hemoglobin 8.2 g/dl (12.0-16.0); Immature Granulocytes # (auto) 0.04 K/uL (0.01-0.20); Immature Granulocytes % (auto) 0.5 %; Lymphocytes # (auto) 1.18 K/uL (1.20-3.40); Lymphocytes % (auto) 14.9 %; Mean Corpuscular Hemoglobin 29.9 pg (25.0-34.0); Mean Corpuscular Hgb Conc 32.9 g/dL (32.0-36.0); Mean Corpuscular Volume 90.9 fL (80.0-100.0); Mean Platelet Volume 10.5 fL (9.4-12.4); Monocytes # (auto) 0.71 K/uL (0.11-0.59); Neutrophils # (auto) 5.95 K/uL (1.40-6.50); Neutrophils % (auto) 75.2 %; Platelet Count 170 K/uL (130-400); RDW Coefficient of Variation 13.5 % (11.5-14.5); RDW Standard Deviation 44.7 fL (36.4-46.3); Red Blood Count 2.74 M/uL (4.20-5.40); White Blood Count 7.91 K/ul (4.8-10.8)
[2023-06-08 07:32] LABS: BUN Creatinine Ratio 18.8 (10-20); Calcium 8.7 mg/dl (8.6-10.3); Creatinine Clr Calc Pharmacy 34.2 ml/min; Est GFR (African American) 54.5 ml/min; Magnesium 1.5 mg/dl (1.7-2.4); Potassium 4.4 mmol/L (3.5-5.1)
--- NOTE | 2023-06-08 09:00 | Orthopedic Progress Note ---
Date of Service June 08, 2023 Assessment & Plan (1) Closed fracture of neck of left femur: Plan: POD 1 s/p Left DA EWA PT/OT protocols. WBAT. DVT prophylaxis - SCD's , Eliquis bid Pain management as written. DC planning - Possible need for Rehab placement prior to going home. Follow PT progression. Admission and Anticipated Discharge Date Admission Date: June 06, 2023 Subjective POD 1 Pt sitting up eating breakfast. Having some pain in the buttock region due to lying too long in bed. States they have been trying to reposition her to help. No other complaints at this time. Physical Exam Physical Exam: Jhon Dressing C/D/I. Mild ecchymosis noted around the surgical dressing. Thigh swollen but soft. Calves soft, NT. NV intact. Toes mobile. Leg lengths appear equal. Results & Data Vital Signs (Past 12 Hours) Vital Signs Temp Pulse Pulse Pulse Resp BP Pulse Ox 06/08/23 08:21 37 C 92 H 17 134/57 L 96 06/08/23 07:00 86 06/08/23 04:00 06/08/23 03:00 37.4 C 90 18 160/72 H 97 06/08/23 02:41 37.4 C 90 16 160/72 H 97 06/08/23 00:00 06/07/23 23:50 36.9 C 71 18 151/72 H 98 06/07/23 23:49 36.9 C 71 18 151/72 H 98 Pulse Ox O2 Del Method O2 Del Method 06/08/23 08:21 Room Air 06/08/23 07:00 06/08/23 04:00 87 L Room Air 06/08/23 03:00 Room Air 06/08/23 02:41 Room Air 06/08/23 00:00 97 Room Air 06/07/23 23:50 Room Air 06/07/23 23:49 Room Air Laboratory Results Laboratory Results WBC 7.91 K/ul (4.8-10.8) 06/08/23 06:43 RBC 2.74 M/uL (4.20-5.40) L 06/08/23 06:43 Hgb 8.2 g/dl (12.0-16.0) L 06/08/23 06:43 Hct 24.9 % (37.0-47.0) L 06/08/23 06:43 MCV 90.9 fL (80.0-100.0) 06/08/23 06:43 MCH 29.9 pg (25.0-34.0) 06/08/23 06:43 MCHC 32.9 g/dL (32.0-36.0) 06/08/23 06:43 RDW Std Deviation 44.7 fL (36.4-46.3) 06/08/23 06:43 RDW Coeff of Mine 13.5 % (11.5-14.5) 06/08/23 06:43 Plt Count 170 K/uL (130-400) 06/08/23 06:43 MPV 10.5 fL (9.4-12.4) 06/08/23 06:43 Immature Gran % (Auto) 0.5 % 06/08/23 06:43 Neut % (Auto) 75.2 % 06/08/23 06:43 Lymph % (Auto) 14.9 % 06/08/23 06:43 Mcpherson % (Auto) 9.0 % 06/08/23 06:43 Eos % (Auto) 0.1 % 06/08/23 06:43 Baso % (Auto) 0.3 % 06/08/23 06:43 Neut # (Auto) 5.95 K/uL (1.40-6.50) 06/08/23 06:43 Lymph # (Auto) 1.18 K/uL (1.20-3.40) L 06/08/23 06:43 Mcpherson # (Auto) 0.71 K/uL (0.11-0.59) H 06/08/23 06:43 Eos # (Auto) 0.01 K/uL (0.00-0.50) 06/08/23 06:43 Baso # (Auto) 0.02 K/uL (0.00-0.20) 06/08/23 06:43 Immature Gran # (Auto) 0.04 K/uL (0.01-0.20) 06/08/23 06:43 PT 11.0 Seconds (9.0-12.0) 06/06/23 08:21 INR 1.0 (0.9-1.1) 06/06/23 08:21 APTT 28 Seconds (21-31) 06/06/23 03:24 PTT Ratio 1.0 06/06/23 03:24 Heparin Anti-Xa, Unfract 0.66 IU/ml (0.3-0.7) 06/06/23 14:58 Sodium 132 mmol/L (136-145) L 06/08/23 06:43 Potassium 4.4 mmol/L (3.5-5.1) 06/08/23 06:43 Chloride 104 mmol/L (98-107) 06/08/23 06:43 Carbon Dioxide 22 mmol/L (21-32) 06/08/23 06:43 Anion Gap 6 (3-11) 06/08/23 06:43 BUN 21 mg/dl (6-23) 06/08/23 06:43 Creatinine 1.12 mg/dl (0.6-1.2) 06/08/23 06:43 Est Cr Clr Drug Dosing 34.2 ml/min 06/08/23 06:43 Est GFR ( Amer) 54.5 ml/min 06/08/23 06:43 Est GFR (Non-Af Amer) 47.0 ml/min 06/08/23 06:43 BUN/Creatinine Ratio 18.8 (10-20) 06/08/23 06:43 Glucose 88 mg/dl (70-99(Fasting)) 06/08/23 06:43 POC Glucose 94 mg/dl (70-99) 06/08/23 08:05 Calcium 8.7 mg/dl (8.6-10.3) 06/08/23 06:43 Magnesium 1.5 mg/dl (1.7-2.4) L 06/08/23 06:43 Troponin I High Sens 10.9 pg/ml (0-14) 06/06/23 03:24 Blood Type A Positive 06/06/23 06:23 Antibody Screen NEGATIVE 06/06/23 06:23 Impressions Hip/Pelvis X-Ray 06/06/23 12:57 SINGLE VIEW PELVIS; 2 VIEWS LEFT HIP CLINICAL HISTORY: Left hip pain. FINDINGS: AP view of the pelvis with AP and crosstable lateral views of the left hip are compared to study dated 12/14/2022. The skeletal structures are osteopenic. There is an impacted and mildly subcapital fracture of the left femur. Overlying soft tissue edema is noted. No additional fractures seen involving the right hip or the bony pelvis. Mild to moderate degenerative changes noted in the hip joints. Degenerative sclerosis is noted in the sacroiliac joints. Fusion hardware is seen at the lumbosacral junction. A Ding catheter is in place. There is atherosclerotic calcification of the femoral arteries. IMPRESSION: Subcapital fracture of the left proximal femur. Electronically signed by: Manoj Burns M.D. 06/06/2023 4:25 PM Hip X-Ray 06/07/23 00:00 FL hip LT 1V CLINICAL HISTORY: LEFT ANTERIOR TOTAL HIP ARTHROPLASTY COMPARISON STUDY: None. FLUOROSCOPY TIME: 8 seconds. FLUOROSCOPY IMAGES: 2 Ka,r: 1.1 mGy FINDINGS: There is a left total hip arthroplasty. The hardware is intact. No fracture or dislocation. IMPRESSION: Fluoroscopic assistance as above. ACT 112: Negative or not required by law. Electronically signed by: Srini Serna M.D. 06/07/2023 5:25 PM
[2023-06-08] MEDS: MULTIVITAMIN TAB PO SCH (09:38)
[2023-06-08] MEDS: APIXABAN 5 MG TABLET PO SCH (09:38)
--- NOTE | 2023-06-08 13:39 | Hospitalist Progress Note ---
Date of Service June 08, 2023 Assessment & Plan (1) Closed fracture of neck of left femur: Plan: Age-related osteoporosis with possible pathological fracture Secondary to mechanical fall. Orthopedics consult-appreciating input and recommendation Hold Eliquis for now in anticipation of procedure. Last dose was 8 PM last night. IV heparin while Eliquis on hold Recommend holding IV heparin 6 hours before surgery. Will have left anterior hip arthroplasty today Pain medications PT and OT evaluation following the procedure Status post left anterior hip arthroplasty on 06/07/2023 She has been having some pain with movement but otherwise stable Will continue PT and OT and awaiting placement Acceptable risk for cardiac complications resulting from prospective procedure Revised Cardiac Risk Index (RCRI): 1. High-risk type of surgery (examples include vascular and any open intraperitoneal or intrathoracic procedures). No 2. History of ischemic heart disease (history of myocardial infarction or positive exercise test, current compliant of chest pain considered to be secondary to myocardial ischemia, use of nitrate therapy, or ECG with pathological Q waves; do not count prior coronary revascularization procedure unless one of the other criteria for ischemic heart disease is present). Yes 3. History of heart failure. No 4. History of cerebrovascular disease. Yes 5. Diabetes mellitus requiring treatment with insulin. No 6. Preoperative serum creatinine >2.0. No Pt has revised cardiac index score of 2 points. (Class III Risk.) 10.1 % 30-day risk of , NV, or cardiac arrest. Moderate risk for cardiac complications if surgery recommended by Orthopedics and patient/family agreeable to attendant procedural benefits and risks.. Hypertensive urgency secondary to above Will continue home medications Additional medications as needed to control blood pressure Blood pressure is controlled CAD status post stent, stable except for elevated BP concerns on outpatient cardiology visit last month, no inducible ischemia on nuclear stress test February 2023 History PVD status post surgery Denies any chest pain, palpitation or shortness of breath DM2 diet-controlled, well-controlled as of recent hemoglobin A1c of 5.06 January 2023 ISS BG goal 1 10-1 40, carb count coverage She does not like to get the insulin shot Will hold that for now but she was strongly advised to continue with diabetic diet Other chronic medical conditions as below: Chronic hyponatremia secondary to SIADH, nephrology recommends 1.5 L fluid restriction at home Hypothyroidism, euthyroid as of recent outpatient TSH Chronic anemia, hemoglobin at baseline history of CVA Hyperlipidemia on statin Rx Mood disorder, stable Past tobacco abuse DVT prophylaxis. history of DVT on Eliquis Low-dose IV heparin Full code Patient requests for daughter to be given periodic updates regarding care. Miss Krystin Trujillo, contact #[phone]. Text document was generated using [employer] voice recognition software. It may contain grammatical or spelling errors. Kindly contact undersigned for clarification of any documentation item in question. Admission and Anticipated Discharge Date Admission Date: June 06, 2023 Subjective 06/07/2023 The patient was seen and examined in medical telemetry unit She will be going for left anterior hip arthroplasty sometime this morning Complains of pain at the left hip with movement but denies any other significant symptoms 06/08/2023 The patient was seen and examined in medical telemetry unit She has been feeling much better and wants to have regular diet Does not like to have insulin subcu Getting physical therapy and awaiting placement Denies any significant symptoms Review of Systems Review of Systems: All systems reviewed and are unremarkable except as noted below Musculoskeletal: Pain in the left hip with any movement of the left lower extremity Physical Exam Physical Exam: Lying in bed comfortably Constitutional: well developed, well nourished, + ill appearing and + obese Eyes: PERRL, conjunctivae normal, anicteric sclerae ENMT: external ear and nose normal, oropharynx normal Neck: trachea midline, no thyromegaly Respiratory: no respiratory distress Auscultation: + diminished lung sounds and + crackles (Minimal crackles at the bases) Cardiovascular: Rate/Rhythm: regular rate and regular rhythm; not tachycardic Heart Sounds: normal S1, normal S2 and + murmur Extremities: + edema (Trace edema bilaterally) Gastrointestinal (Abdomen): Inspection/Auscultation: normal bowel sounds; abdomen not distended Percussion/Palpation: abdomen soft; abdomen nontender Musculoskeletal: Status post left hip replacement. Pain in left hip with movement Neurologic: normal touch/pain/proprioception and moves all extremities; no focal motor deficits Psychiatric: A+Ox3, euthymic affect Lymphatic: no cervical or axillary lymphadenopathy Results & Data Results & Data Vital Signs (Past 12 Hours) Vital Signs Temp Pulse Pulse Pulse Resp BP Pulse Ox 06/08/23 11:19 37 C 99 H 17 135/65 96 06/08/23 10:50 06/08/23 09:36 102 H 112/70 06/08/23 08:21 37 C 92 H 17 134/57 L 96 06/08/23 07:00 86 06/08/23 04:00 06/08/23 03:00 37.4 C 90 18 160/72 H 97 06/08/23 02:41 37.4 C 90 16 160/72 H 97 Pulse Ox Pulse Ox Pulse Ox Pulse Ox O2 Del Method O2 Del Method 06/08/23 11:19 Room Air 06/08/23 10:50 95 95 93 06/08/23 09:36 06/08/23 08:21 Room Air 06/08/23 07:00 06/08/23 04:00 87 L Room Air 06/08/23 03:00 Room Air 06/08/23 02:41 Room Air Laboratory Results Short CBC 06/08/23 Range/Units 06:43 WBC 7.91 (4.8-10.8) K/ul Hgb 8.2 L (12.0-16.0) g/dl Hct 24.9 L (37.0-47.0) % Plt Count 170 (130-400) K/uL BMP 06/08/23 06:43 Sodium 132 L Potassium 4.4 Chloride 104 Carbon Dioxide 22 BUN 21 Creatinine 1.12 Glucose 88 Calcium 8.7 Medications Administered Current Inpatient Medications Apixaban (Apixaban 5 Mg Tablet) 5 mg PO BID DAJA Stop: 07/08/23 08:59 Last Admin: 06/08/23 09:38 Dose: 5 mg Aspirin (Aspirin 81 Mg Ectab) 81 mg PO PM DAJA Stop: 07/06/23 20:59 Last Admin: 06/07/23 20:03 Dose: 81 mg Bisacodyl (Bisacodyl 10 Mg Supp) 10 mg DE DAILY PRN PRN Reason: Constipation Stop: 07/07/23 17:18 Dextrose (Dextrose 50% 50 Ml Syringe) 25 - 50 ml IV UD PRN; Protocol PRN Reason: Hypoglycemia Protocol Stop: 07/06/23 06:23 Docusate Sodium (Docusate Sodium 100 Mg Cap) 100 mg PO BID DAJA Stop: 07/07/23 20:59 Last Admin: 06/08/23 09:47 Dose: 100 mg Ezetimibe (Ezetimibe 10 Mg Tab) 10 mg PO QAM DAJA Stop: 07/06/23 08:59 Last Admin: 06/08/23 09:40 Dose: 10 mg Folic Acid (Folic Acid 1 Mg Tab) 1 mg PO DAILY DAJA Stop: 07/06/23 08:59 Last Admin: 06/08/23 09:37 Dose: 1 mg Gabapentin (Gabapentin 100 Mg Cap) 100 mg PO TID DAJA Stop: 07/06/23 08:59 Last Admin: 06/08/23 13:03 Dose: 100 mg Glucagon (Glucagon For Inj 1 Mg Vial) 1 mg SQ UD PRN; Protocol PRN Reason: Hypoglycemia Protocol Stop: 07/06/23 06:23 Glucose (Glucose 10 Tab/Tube) 4 - 8 tab PO UD PRN; Protocol PRN Reason: Hypoglycemia Treatment Stop: 07/06/23 06:23 Glucose (Glucose 40% Gel 15 Gm Tube) 15 - 30 gm PO UD PRN; Protocol PRN Reason: Hypoglycemia Protocol Stop: 07/06/23 06:23 Promethazine HCl 6.25 mg/ (Sodium Chloride) 50.25 mls @ 201 mls/hr IV Q6H PRN PRN Reason: Nausea And Vomiting Stop: 07/06/23 06:22 Insulin Aspart (Insulin Aspart Per Unit Charge) 0 units SC ACHS [facility] Stop: 07/06/23 07:29 Last Admin: 06/08/23 12:19 Dose: Not Given Levothyroxine Sodium (Levothyroxine Sodium 112 Mcg Tablet) 112 mcg PO DAILYBB [facility] Stop: 07/07/23 06:29 Last Admin: 06/08/23 06:00 Dose: 112 mcg Magnesium Chloride (Magnesium Chloride W/Calcium 64mg Delayed Rel Tab) 128 mg PO BID [facility] Stop: 07/07/23 20:59 Last Admin: 06/08/23 09:37 Dose: 128 mg Magnesium Hydroxide (Magnesium Hydroxide Susp 30 Ml Udc) 30 ml PO Q6H PRN PRN Reason: Constipation Stop: 07/07/23 17:18 Metoclopramide HCl (Metoclopramide Hcl Inj 5 Mg/Ml 2 Ml Vial) 10 mg IV Q6H PRN PRN Reason: Nausea And Vomiting Stop: 07/07/23 17:18 Metoprolol Succinate (Metoprolol Succ 25mg Ext Rel Tab) 25 mg PO QAM [facility] Stop: 07/07/23 08:59 Last Admin: 06/08/23 09:37 Dose: 25 mg Miscellaneous (Carbohydrates For Hypoglycemia ) 15 - 30 gm PO UD PRN PRN Reason: Hypoglycemia Protocol Stop: 07/06/23 06:23 Multivitamins (Multivitamin Tab) 1 tab PO QAM [facility] Stop: 07/08/23 08:59 Last Admin: 06/08/23 09:38 Dose: 1 tab Naloxone HCl (Naloxone Hcl 0.4 Mg/1 Ml Vial/Carp) 0.1 mg IV Q5M PRN PRN Reason: Oversedation/Resp Depression Stop: 07/07/23 17:18 Ondansetron HCl (Ondansetron Inj 2 Mg/Ml 2 Ml Vial) 4 mg IV Q6H PRN PRN Reason: Nausea And Vomiting Stop: 07/07/23 17:18 Oxcarbazepine (Oxcarbazepine 150 Mg Tablet) 450 mg PO BID [facility] Stop: 07/06/23 08:59 Last Admin: 06/08/23 09:39 Dose: 450 mg Oxycodone HCl (Oxycodone Hcl Ir 5 Mg Tab (Immediate Release)) 5 mg PO Q4H PRN PRN Reason: Pain Stop: 06/20/23 05:34 Last Admin: 06/08/23 09:47 Dose: 5 mg Pantoprazole Sodium (Pantoprazole 40 Mg Tab) 40 mg PO DAILYBB [facility] Stop: 07/07/23 06:29 Last Admin: 06/08/23 06:00 Dose: 40 mg Pentoxifylline (Pentoxifylline 400mg Ext Rel Tab) 400 mg PO BID [facility] Stop: 07/06/23 08:59 Last Admin: 06/08/23 09:40 Dose: 400 mg Sennosides (Senna 8.6 Mg Tab) 17.2 mg PO HS [facility] Stop: 07/07/23 20:59 Last Admin: 06/07/23 20:07 Dose: 17.2 mg Topiramate (Topiramate 100 Mg Tab) 100 mg PO QID [facility] Stop: 07/06/23 08:59 Last Admin: 06/08/23 13:03 Dose: 100 mg Tramadol HCl (Tramadol Hcl 50 Mg Tablet) 50 mg PO Q6H PRN PRN Reason: Severe Pain (Scale Score 7-10) Stop: 07/07/23 17:18 Last Admin: 06/08/23 06:15 Dose: 50 mg Vitamin D (Cholecalciferol 5,000 Units 125 Mcg Tab) 125 mcg PO DAILY@1200 DAJA Stop: 07/07/23 11:59 Last Admin: 06/08/23 13:30 Dose: 125 mcg
[2023-06-08] MEDS: FUROSEMIDE 20 MG TAB PO STA (16:14)
--- NOTE | 2023-06-09 08:16 | Orthopedic Progress Note ---
Date of Service June 09, 2023 Assessment & Plan (1) Closed fracture of neck of left femur: Plan: POD 2 s/p Left Direct Anterior EWA PT/OT protocols. WBAT. DVT prophylaxis - SCD's , Eliquis bid Pain management as written. DC planning - Possible need for Rehab placement prior to going home. Follow PT progression. Orthopedics to sign off at this time. Follow up as outpatient in 10-14 days from surgical date. Admission and Anticipated Discharge Date Admission Date: June 06, 2023 Subjective Patient is not having any pain in the left hip. No new complaints from the hip standpoint today. She was on the bedside commode prior to the visit and nursing assisted her back into bed. Physical Exam Constitutional: WD/WN, vitals as above no acute distress Musculoskeletal: Hip: + surgical incision (Anterior left hip: ZAHIDA dressing in place and functioning.); no skin erythema, no ecchymosis and no surgical drain present Skin: no rashes, warm and dry (Left thigh is soft) Neurologic: normal touch/pain/proprioception (Dorsiflexion/plantarflexion intact LLE) Psychiatric: A+Ox3, euthymic affect Speech: normal rate/rhythm/volume of speech Results & Data Vital Signs (Past 12 Hours) Vital Signs Temp Pulse Pulse Resp BP Pulse Ox O2 Del Method 06/09/23 07:48 36.7 C 78 17 134/68 96 Room Air 06/09/23 07:00 85 06/09/23 03:51 36.9 C 91 H 20 128/72 96 Room Air 06/08/23 23:52 36.3 C L 82 20 126/71 96 Room Air 06/08/23 23:00 80 Laboratory Results Laboratory Tests 06/08/23 06:43 Hgb 8.2 L Hct 24.9 L Sodium 132 L Potassium 4.4 Chloride 104 BUN 21 Creatinine 1.12
--- NOTE | 2023-06-09 12:52 | Hospitalist Progress Note ---
Date of Service June 09, 2023 Assessment & Plan (1) Closed fracture of neck of left femur: Plan: Age-related osteoporosis with possible pathological fracture Secondary to mechanical fall. Orthopedics consult-appreciating input and recommendation Hold Eliquis for now in anticipation of procedure. Last dose was 8 PM last night. IV heparin while Eliquis on hold Recommend holding IV heparin 6 hours before surgery. Will have left anterior hip arthroplasty today Pain medications PT and OT evaluation following the procedure Status post left anterior hip arthroplasty on 06/07/2023 She has been having some pain with movement but otherwise stable Will continue PT and OT and awaiting placement Remains medically stable Awaiting placement Could not make out any urine Bladder scan revealed to be more than 500 mL on 2 occasions Right straight cath once Now has a Ding Likely DC Ding before transfer Acceptable risk for cardiac complications resulting from prospective procedure Revised Cardiac Risk Index (RCRI): 1. High-risk type of surgery (examples include vascular and any open intraperitoneal or intrathoracic procedures). No 2. History of ischemic heart disease (history of myocardial infarction or positive exercise test, current compliant of chest pain considered to be secondary to myocardial ischemia, use of nitrate therapy, or ECG with pathological Q waves; do not count prior coronary revascularization procedure unless one of the other criteria for ischemic heart disease is present). Yes 3. History of heart failure. No 4. History of cerebrovascular disease. Yes 5. Diabetes mellitus requiring treatment with insulin. No 6. Preoperative serum creatinine >2.0. No Pt has revised cardiac index score of 2 points. (Class III Risk.) 10.1 % 30-day risk of , [place], or cardiac arrest. Moderate risk for cardiac complications if surgery recommended by Orthopedics and patient/family agreeable to attendant procedural benefits and risks.. Hypertensive urgency secondary to above Will continue home medications Additional medications as needed to control blood pressure Blood pressure is controlled CAD status post stent, stable except for elevated BP concerns on outpatient cardiology visit last month, no inducible ischemia on nuclear stress test February 2023 History PVD status post surgery Denies any chest pain, palpitation or shortness of breath DM2 diet-controlled, well-controlled as of recent hemoglobin A1c of 5.06 January 2023 ISS BG goal 1 10-1 40, carb count coverage She does not like to get the insulin shot Will hold that for now but she was strongly advised to continue with diabetic diet Other chronic medical conditions as below: Chronic hyponatremia secondary to SIADH, nephrology recommends 1.5 L fluid restriction at home Hypothyroidism, euthyroid as of recent outpatient TSH Chronic anemia, hemoglobin at baseline history of CVA Hyperlipidemia on statin Rx Mood disorder, stable Past tobacco abuse DVT prophylaxis. history of DVT on Eliquis Low-dose IV heparin Full code Patient requests for daughter to be given periodic updates regarding care. Miss Krystin Trujillo, contact #[phone]. Text document was generated using [employer] voice recognition software. It may contain grammatical or spelling errors. Kindly contact undersigned for clarification of any documentation item in question. Admission and Anticipated Discharge Date Admission Date: June 06, 2023 Subjective 06/07/2023 The patient was seen and examined in medical telemetry unit She will be going for left anterior hip arthroplasty sometime this morning Complains of pain at the left hip with movement but denies any other significant symptoms 06/08/2023 The patient was seen and examined in medical telemetry unit She has been feeling much better and wants to have regular diet Does not like to have insulin subcu Getting physical therapy and awaiting placement Denies any significant symptoms 06/09/2023 The patient was seen and examined in medical telemetry unit She has been feeling much better but could not make any urine She has a Ding catheter right now Out of bed on a chair and denies any acute distress and her symptoms Review of Systems Review of Systems: All systems reviewed and are unremarkable except as noted below Physical Exam Physical Exam: Lying in bed comfortably Constitutional: well developed, well nourished, + ill appearing and + obese Eyes: PERRL, conjunctivae normal, anicteric sclerae ENMT: external ear and nose normal, oropharynx normal Neck: trachea midline, no thyromegaly Respiratory: no respiratory distress Auscultation: + diminished lung sounds and + crackles (Minimal crackles at the bases) Cardiovascular: Rate/Rhythm: regular rate and regular rhythm; not tachycardic Heart Sounds: normal S1, normal S2 and + murmur Extremities: + edema (Trace edema bilaterally) Gastrointestinal (Abdomen): Inspection/Auscultation: normal bowel sounds; abdomen not distended Percussion/Palpation: abdomen soft; abdomen nontender Musculoskeletal: Status post left hip replacement. Pain in left hip with movement Neurologic: normal touch/pain/proprioception and moves all extremities; no focal motor deficits Psychiatric: A+Ox3, euthymic affect Lymphatic: no cervical or axillary lymphadenopathy Results & Data Results & Data Vital Signs (Past 12 Hours) Vital Signs Temp Pulse Pulse Resp BP Pulse Ox O2 Del Method 06/09/23 12:11 36.4 C L 87 17 134/75 97 Room Air 06/09/23 07:48 36.7 C 78 17 134/68 96 Room Air 06/09/23 07:00 85 06/09/23 03:51 36.9 C 91 H 20 128/72 96 Room Air Medications Administered Current Inpatient Medications Apixaban (Apixaban 5 Mg Tablet) 5 mg PO BID DAJA Stop: 07/08/23 08:59 Last Admin: 06/09/23 08:45 Dose: 5 mg Aspirin (Aspirin 81 Mg Ectab) 81 mg PO PM DAJA Stop: 07/06/23 20:59 Last Admin: 06/08/23 21:03 Dose: 81 mg Bisacodyl (Bisacodyl 10 Mg Supp) 10 mg ND DAILY PRN PRN Reason: Constipation Stop: 07/07/23 17:18 Dextrose (Dextrose 50% 50 Ml Syringe) 25 - 50 ml IV UD PRN; Protocol PRN Reason: Hypoglycemia Protocol Stop: 07/06/23 06:23 Docusate Sodium (Docusate Sodium 100 Mg Cap) 100 mg PO BID DAJA Stop: 07/07/23 20:59 Last Admin: 06/09/23 08:45 Dose: 100 mg Ezetimibe (Ezetimibe 10 Mg Tab) 10 mg PO QAM DAJA Stop: 07/06/23 08:59 Last Admin: 06/09/23 08:44 Dose: 10 mg Folic Acid (Folic Acid 1 Mg Tab) 1 mg PO DAILY DAJA Stop: 07/06/23 08:59 Last Admin: 06/09/23 08:44 Dose: 1 mg Gabapentin (Gabapentin 100 Mg Cap) 100 mg PO TID DAJA Stop: 07/06/23 08:59 Last Admin: 06/09/23 08:44 Dose: 100 mg Glucagon (Glucagon For Inj 1 Mg Vial) 1 mg SQ UD PRN; Protocol PRN Reason: Hypoglycemia Protocol Stop: 07/06/23 06:23 Glucose (Glucose 10 Tab/Tube) 4 - 8 tab PO UD PRN; Protocol PRN Reason: Hypoglycemia Treatment Stop: 07/06/23 06:23 Glucose (Glucose 40% Gel 15 Gm Tube) 15 - 30 gm PO UD PRN; Protocol PRN Reason: Hypoglycemia Protocol Stop: 07/06/23 06:23 Promethazine HCl 6.25 mg/ (Sodium Chloride) 50.25 mls @ 201 mls/hr IV Q6H PRN PRN Reason: Nausea And Vomiting Stop: 07/06/23 06:22 Insulin Aspart (Insulin Aspart Per Unit Charge) 0 units SC ACHS [facility] Stop: 07/06/23 07:29 Last Admin: 06/09/23 08:38 Dose: Not Given Levothyroxine Sodium (Levothyroxine Sodium 112 Mcg Tablet) 112 mcg PO DAILYBB [facility] Stop: 07/07/23 06:29 Last Admin: 06/09/23 06:14 Dose: 112 mcg Magnesium Chloride (Magnesium Chloride W/Calcium 64mg Delayed Rel Tab) 128 mg PO BID [facility] Stop: 07/07/23 20:59 Last Admin: 06/09/23 08:43 Dose: 128 mg Magnesium Hydroxide (Magnesium Hydroxide Susp 30 Ml Udc) 30 ml PO Q6H PRN PRN Reason: Constipation Stop: 07/07/23 17:18 Metoclopramide HCl (Metoclopramide Hcl Inj 5 Mg/Ml 2 Ml Vial) 10 mg IV Q6H PRN PRN Reason: Nausea And Vomiting Stop: 07/07/23 17:18 Metoprolol Succinate (Metoprolol Succ 25mg Ext Rel Tab) 25 mg PO QAM [facility] Stop: 07/07/23 08:59 Last Admin: 06/09/23 08:43 Dose: 25 mg Miscellaneous (Carbohydrates For Hypoglycemia ) 15 - 30 gm PO UD PRN PRN Reason: Hypoglycemia Protocol Stop: 07/06/23 06:23 Multivitamins (Multivitamin Tab) 1 tab PO [facility] Stop: 07/08/23 08:59 Last Admin: 06/09/23 08:43 Dose: 1 tab Naloxone HCl (Naloxone Hcl 0.4 Mg/1 Ml Vial/Carp) 0.1 mg IV Q5M PRN PRN Reason: Oversedation/Resp Depression Stop: 07/07/23 17:18 Ondansetron HCl (Ondansetron Inj 2 Mg/Ml 2 Ml Vial) 4 mg IV Q6H PRN PRN Reason: Nausea And Vomiting Stop: 07/07/23 17:18 Oxcarbazepine (Oxcarbazepine 150 Mg Tablet) 450 mg PO BID [facility] Stop: 07/06/23 08:59 Last Admin: 06/09/23 08:42 Dose: 450 mg Oxycodone HCl (Oxycodone Hcl Ir 5 Mg Tab (Immediate Release)) 5 mg PO Q4H PRN PRN Reason: Pain Stop: 06/20/23 05:34 Last Admin: 06/09/23 06:13 Dose: 5 mg Pantoprazole Sodium (Pantoprazole 40 Mg Tab) 40 mg PO DAILYBB [facility] Stop: 07/07/23 06:29 Last Admin: 06/09/23 06:14 Dose: 40 mg Pentoxifylline (Pentoxifylline 400mg Ext Rel Tab) 400 mg PO BID [facility] Stop: 07/06/23 08:59 Last Admin: 06/09/23 08:42 Dose: 400 mg Sennosides (Senna 8.6 Mg Tab) 17.2 mg PO HS [facility] Stop: 07/07/23 20:59 Last Admin: 06/08/23 21:05 Dose: 17.2 mg Topiramate (Topiramate 100 Mg Tab) 100 mg PO QID [facility] Stop: 07/06/23 08:59 Last Admin: 06/09/23 08:41 Dose: 100 mg Tramadol HCl (Tramadol Hcl 50 Mg Tablet) 50 mg PO Q6H PRN PRN Reason: Severe Pain (Scale Score 7-10) Stop: 07/07/23 17:18 Last Admin: 06/09/23 08:45 Dose: 50 mg Vitamin D (Cholecalciferol 5,000 Units 125 Mcg Tab) 125 mcg PO DAILY@1200 [facility] Stop: 07/07/23 11:59 Last Admin: 06/08/23 13:30 Dose: 125 mcg
--- NOTE | 2023-06-09 15:59 | Hospitalist Progress Note ---
Date of Service June 09, 2023 Assessment & Plan (1) Closed fracture of neck of left femur: Plan: Age-related osteoporosis with possible pathological fracture Secondary to mechanical fall. Orthopedics consult-appreciating input and recommendation Hold Eliquis for now in anticipation of procedure. Last dose was 8 PM last night. IV heparin while Eliquis on hold Recommend holding IV heparin 6 hours before surgery. Will have left anterior hip arthroplasty today Pain medications PT and OT evaluation following the procedure Status post left anterior hip arthroplasty on 06/07/2023 She has been having some pain with movement but otherwise stable Will continue PT and OT and awaiting placement Remains medically stable Awaiting placement Could not make out any urine Bladder scan revealed to be more than 500 mL on 2 occasions Right straight cath once Now has a Ding Likely DC Ding before transfer Acceptable risk for cardiac complications resulting from prospective procedure Revised Cardiac Risk Index (RCRI): 1. High-risk type of surgery (examples include vascular and any open intraperitoneal or intrathoracic procedures). No 2. History of ischemic heart disease (history of myocardial infarction or positive exercise test, current compliant of chest pain considered to be secondary to myocardial ischemia, use of nitrate therapy, or ECG with pathological Q waves; do not count prior coronary revascularization procedure unless one of the other criteria for ischemic heart disease is present). Yes 3. History of heart failure. No 4. History of cerebrovascular disease. Yes 5. Diabetes mellitus requiring treatment with insulin. No 6. Preoperative serum creatinine >2.0. No Pt has revised cardiac index score of 2 points. (Class III Risk.) 10.1 % 30-day risk of , [place], or cardiac arrest. Moderate risk for cardiac complications if surgery recommended by Orthopedics and patient/family agreeable to attendant procedural benefits and risks.. Hypertensive urgency secondary to above Will continue home medications Additional medications as needed to control blood pressure Blood pressure is controlled CAD status post stent, stable except for elevated BP concerns on outpatient cardiology visit last month, no inducible ischemia on nuclear stress test February 2023 History PVD status post surgery Denies any chest pain, palpitation or shortness of breath DM2 diet-controlled, well-controlled as of recent hemoglobin A1c of 5.06 January 2023 ISS BG goal 1 10-1 40, carb count coverage She does not like to get the insulin shot Will hold that for now but she was strongly advised to continue with diabetic diet Other chronic medical conditions as below: Chronic hyponatremia secondary to SIADH, nephrology recommends 1.5 L fluid restriction at home Hypothyroidism, euthyroid as of recent outpatient TSH Chronic anemia, hemoglobin at baseline history of CVA Hyperlipidemia on statin Rx Mood disorder, stable Past tobacco abuse DVT prophylaxis. history of DVT on Eliquis Low-dose IV heparin Full code Patient requests for daughter to be given periodic updates regarding care. Miss Krystin Trujillo, contact #[phone]. Text document was generated using [employer] voice recognition software. It may contain grammatical or spelling errors. Kindly contact undersigned for clarification of any documentation item in question. Admission and Anticipated Discharge Date Admission Date: June 06, 2023 Subjective 06/07/2023 The patient was seen and examined in medical telemetry unit She will be going for left anterior hip arthroplasty sometime this morning Complains of pain at the left hip with movement but denies any other significant symptoms 06/08/2023 The patient was seen and examined in medical telemetry unit She has been feeling much better and wants to have regular diet Does not like to have insulin subcu Getting physical therapy and awaiting placement Denies any significant symptoms 06/09/2023 The patient was seen and examined in medical telemetry unit She has been feeling much better but could not make any urine She has a Ding catheter right now Out of bed on a chair and denies any acute distress and her symptoms Review of Systems Review of Systems: All systems reviewed and are unremarkable except as noted below Musculoskeletal: Pain in the left hip with any movement of the left lower extremity Physical Exam Physical Exam: Lying in bed comfortably Constitutional: well developed, well nourished, + ill appearing and + obese Eyes: PERRL, conjunctivae normal, anicteric sclerae ENMT: external ear and nose normal, oropharynx normal Neck: trachea midline, no thyromegaly Respiratory: no respiratory distress Auscultation: + diminished lung sounds and + crackles (Minimal crackles at the bases) Cardiovascular: Rate/Rhythm: regular rate and regular rhythm; not tachycardic Heart Sounds: normal S1, normal S2 and + murmur Extremities: + edema (Trace edema bilaterally) Gastrointestinal (Abdomen): Inspection/Auscultation: normal bowel sounds; abdomen not distended Percussion/Palpation: abdomen soft; abdomen nontender Neurologic: normal touch/pain/proprioception and moves all extremities; no focal motor deficits Psychiatric: A+Ox3, euthymic affect Lymphatic: no cervical or axillary lymphadenopathy Results & Data Results & Data Vital Signs (Past 12 Hours) Vital Signs Temp Pulse Pulse Pulse Resp BP Pulse Ox 06/09/23 15:30 36.7 C 66 16 154/72 H 95 06/09/23 12:11 36.4 C L 87 17 134/75 97 06/09/23 10:30 06/09/23 07:48 36.7 C 78 17 134/68 96 06/09/23 07:00 85 O2 Del Method 06/09/23 15:30 Room Air 06/09/23 12:11 Room Air 06/09/23 10:30 Room Air 06/09/23 07:48 Room Air 06/09/23 07:00
--- NOTE | 2023-06-10 13:47 | Hospitalist Progress Note ---
Date of Service June 10, 2023 Assessment & Plan (1) Closed fracture of neck of left femur: Plan: Age-related osteoporosis with possible pathological fracture Secondary to mechanical fall. Orthopedics consult-appreciating input and recommendation Hold Eliquis for now in anticipation of procedure. Last dose was 8 PM last night. IV heparin while Eliquis on hold Recommend holding IV heparin 6 hours before surgery. Will have left anterior hip arthroplasty today Pain medications PT and OT evaluation following the procedure Status post left anterior hip arthroplasty on 06/07/2023 She has been having some pain with movement but otherwise stable Pain is reasonably controlled-has been getting physical therapy Awaiting to be placed Could not make out any urine Bladder scan revealed to be more than 500 mL on 2 occasions Right straight cath once Now has a Ding Likely DC Ding before transfer Has Ding in place-will DC Ding tomorrow morning Acceptable risk for cardiac complications resulting from prospective procedure Revised Cardiac Risk Index (RCRI): 1. High-risk type of surgery (examples include vascular and any open intraperitoneal or intrathoracic procedures). No 2. History of ischemic heart disease (history of myocardial infarction or positive exercise test, current compliant of chest pain considered to be secondary to myocardial ischemia, use of nitrate therapy, or ECG with pathological Q waves; do not count prior coronary revascularization procedure unless one of the other criteria for ischemic heart disease is present). Yes 3. History of heart failure. No 4. History of cerebrovascular disease. Yes 5. Diabetes mellitus requiring treatment with insulin. No 6. Preoperative serum creatinine >2.0. No Pt has revised cardiac index score of 2 points. (Class III Risk.) 10.1 % 30-day risk of , [place], or cardiac arrest. Moderate risk for cardiac complications if surgery recommended by Orthopedics and patient/family agreeable to attendant procedural benefits and risks.. Hypertensive urgency secondary to above Will continue home medications Additional medications as needed to control blood pressure Blood pressure is controlled CAD status post stent, stable except for elevated BP concerns on outpatient cardiology visit last month, no inducible ischemia on nuclear stress test February 2023 History PVD status post surgery Denies any chest pain, palpitation or shortness of breath DM2 diet-controlled, well-controlled as of recent hemoglobin A1c of 5.06 January 2023 ISS BG goal 1 10-1 40, carb count coverage She does not like to get the insulin shot Will hold that for now but she was strongly advised to continue with diabetic diet Will DC insulin Other chronic medical conditions as below: Chronic hyponatremia secondary to SIADH, nephrology recommends 1.5 L fluid restriction at home Hypothyroidism, euthyroid as of recent outpatient TSH Chronic anemia, hemoglobin at baseline history of CVA Hyperlipidemia on statin Rx Mood disorder, stable Past tobacco abuse DVT prophylaxis. history of DVT on Eliquis Low-dose IV heparin Full code Patient requests for daughter to be given periodic updates regarding care. Miss Krystin Trujillo, contact #[phone]. Text document was generated using [employer] voice recognition software. It may contain grammatical or spelling errors. Kindly contact undersigned for clarification of any documentation item in question. Likely discharge in a day or 2 Admission and Anticipated Discharge Date Admission Date: June 06, 2023 Subjective 06/07/2023 The patient was seen and examined in medical telemetry unit She will be going for left anterior hip arthroplasty sometime this morning Complains of pain at the left hip with movement but denies any other significant symptoms 06/08/2023 The patient was seen and examined in medical telemetry unit She has been feeling much better and wants to have regular diet Does not like to have insulin subcu Getting physical therapy and awaiting placement Denies any significant symptoms 06/09/2023 The patient was seen and examined in medical telemetry unit She has been feeling much better but could not make any urine She has a Ding catheter right now Out of bed on a chair and denies any acute distress and her symptoms 06/10/2023 The patient was seen and examined in medical floor in presence of the family members She has been stable in chair with minimal pain in the hip Does not want to take any insulin Denies any other significant symptom Awaiting placement Review of Systems Review of Systems: All systems reviewed and are unremarkable except as noted below Musculoskeletal: Pain in the left hip with any movement of the left lower extremity Physical Exam Physical Exam: Lying in bed comfortably Constitutional: well developed, well nourished, + ill appearing and + obese Eyes: PERRL, conjunctivae normal, anicteric sclerae ENMT: external ear and nose normal, oropharynx normal Neck: trachea midline, no thyromegaly Respiratory: no respiratory distress Auscultation: + diminished lung sounds and + crackles (Minimal crackles at the bases) Cardiovascular: Rate/Rhythm: regular rate and regular rhythm; not tachycardic Heart Sounds: normal S1, normal S2 and + murmur Extremities: + edema (Trace edema bilaterally) Gastrointestinal (Abdomen): Inspection/Auscultation: normal bowel sounds; abdomen not distended Percussion/Palpation: abdomen soft; abdomen nontender Neurologic: normal touch/pain/proprioception and moves all extremities; no focal motor deficits Psychiatric: A+Ox3, euthymic affect Lymphatic: no cervical or axillary lymphadenopathy Results & Data Results & Data Vital Signs (Past 12 Hours) Vital Signs Temp Pulse Resp BP Pulse Ox O2 Del Method 06/10/23 07:43 36.9 C 82 17 138/73 96 Room Air Medications Administered Current Inpatient Medications Apixaban (Apixaban 5 Mg Tablet) 5 mg PO BID DAAJ Stop: 07/08/23 08:59 Last Admin: 06/10/23 10:14 Dose: 5 mg Aspirin (Aspirin 81 Mg Ectab) 81 mg PO PM DAJA Stop: 07/06/23 20:59 Last Admin: 06/09/23 20:35 Dose: 81 mg Bisacodyl (Bisacodyl 10 Mg Supp) 10 mg [place] DAILY PRN PRN Reason: Constipation Stop: 07/07/23 17:18 Dextrose (Dextrose 50% 50 Ml Syringe) 25 - 50 ml IV UD PRN; Protocol PRN Reason: Hypoglycemia Protocol Stop: 07/06/23 06:23 Docusate Sodium (Docusate Sodium 100 Mg Cap) 100 mg PO BID DAJA Stop: 07/07/23 20:59 Last Admin: 06/10/23 08:51 Dose: 100 mg Ezetimibe (Ezetimibe 10 Mg Tab) 10 mg PO QAM DAJA Stop: 07/06/23 08:59 Last Admin: 06/10/23 08:44 Dose: 10 mg Folic Acid (Folic Acid 1 Mg Tab) 1 mg PO DAILY DAJA Stop: 07/06/23 08:59 Last Admin: 06/10/23 08:44 Dose: 1 mg Gabapentin (Gabapentin 100 Mg Cap) 100 mg PO TID DAJA Stop: 07/06/23 08:59 Last Admin: 06/10/23 08:44 Dose: 100 mg Glucagon (Glucagon For Inj 1 Mg Vial) 1 mg SQ UD PRN; Protocol PRN Reason: Hypoglycemia Protocol Stop: 07/06/23 06:23 Glucose (Glucose 10 Tab/Tube) 4 - 8 tab PO UD PRN; Protocol PRN Reason: Hypoglycemia Treatment Stop: 07/06/23 06:23 Glucose (Glucose 40% Gel 15 Gm Tube) 15 - 30 gm PO UD PRN; Protocol PRN Reason: Hypoglycemia Protocol Stop: 07/06/23 06:23 Promethazine HCl 6.25 mg/ (Sodium Chloride) 50.25 mls @ 201 mls/hr IV Q6H PRN PRN Reason: Nausea And Vomiting Stop: 07/06/23 06:22 Insulin Aspart (Insulin Aspart Per Unit Charge) 0 units SC ACHS [facility] Stop: 07/06/23 07:29 Last Admin: 06/10/23 12:44 Dose: Not Given Levothyroxine Sodium (Levothyroxine Sodium 112 Mcg Tablet) 112 mcg PO DAILYBB [facility] Stop: 07/07/23 06:29 Last Admin: 06/10/23 05:49 Dose: 112 mcg Magnesium Chloride (Magnesium Chloride W/Calcium 64mg Delayed Rel Tab) 128 mg PO BID [facility] Stop: 07/07/23 20:59 Last Admin: 06/10/23 10:14 Dose: 128 mg Magnesium Hydroxide (Magnesium Hydroxide Susp 30 Ml Udc) 30 ml PO Q6H PRN PRN Reason: Constipation Stop: 07/07/23 17:18 Metoclopramide HCl (Metoclopramide Hcl Inj 5 Mg/Ml 2 Ml Vial) 10 mg IV Q6H PRN PRN Reason: Nausea And Vomiting Stop: 07/07/23 17:18 Metoprolol Succinate (Metoprolol Succ 25mg Ext Rel Tab) 25 mg PO QAM [facility] Stop: 07/07/23 08:59 Last Admin: 06/10/23 08:45 Dose: 25 mg Miscellaneous (Carbohydrates For Hypoglycemia ) 15 - 30 gm PO UD PRN PRN Reason: Hypoglycemia Protocol Stop: 07/06/23 06:23 Multivitamins (Multivitamin Tab) [facility] Stop: 07/08/23 08:59 Last Admin: 06/10/23 10:16 Dose: 1 tab Naloxone HCl (Naloxone Hcl 0.4 Mg/1 Ml Vial/Carp) 0.1 mg IV Q5M PRN PRN Reason: Oversedation/Resp Depression Stop: 07/07/23 17:18 Ondansetron HCl (Ondansetron Inj 2 Mg/Ml 2 Ml Vial) 4 mg IV Q6H PRN PRN Reason: Nausea And Vomiting Stop: 07/07/23 17:18 Oxcarbazepine (Oxcarbazepine 150 Mg Tablet) 450 mg PO BID [facility] Stop: 07/06/23 08:59 Last Admin: 06/10/23 08:45 Dose: 450 mg Oxycodone HCl (Oxycodone Hcl Ir 5 Mg Tab (Immediate Release)) 5 mg PO Q4H PRN PRN Reason: Pain Stop: 06/20/23 05:34 Last Admin: 06/09/23 20:41 Dose: 5 mg Pantoprazole Sodium (Pantoprazole 40 Mg Tab) 40 mg PO DAILYBB [facility] Stop: 07/07/23 06:29 Last Admin: 06/10/23 05:49 Dose: 40 mg Pentoxifylline (Pentoxifylline 400mg Ext Rel Tab) 400 mg PO BID [facility] Stop: 07/06/23 08:59 Last Admin: 06/10/23 10:15 Dose: 400 mg Sennosides (Senna 8.6 Mg Tab) 17.2 mg PO HS [facility] Stop: 07/07/23 20:59 Last Admin: 06/09/23 21:27 Dose: 17.2 mg Topiramate (Topiramate 100 Mg Tab) 100 mg PO QID [facility] Stop: 07/06/23 08:59 Last Admin: 06/10/23 12:45 Dose: 100 mg Tramadol HCl (Tramadol Hcl 50 Mg Tablet) 50 mg PO Q6H PRN PRN Reason: Severe Pain (Scale Score 7-10) Stop: 07/07/23 17:18 Last Admin: 06/09/23 08:45 Dose: 50 mg Vitamin D (Cholecalciferol 5,000 Units 125 Mcg Tab) 125 mcg PO DAILY@1200 [facility] Stop: 07/07/23 11:59 Last Admin: 06/10/23 12:45 Dose: 125 mcg
[2023-06-11] MEDS: bisacodyL 10 MG SUPP PR PRN (12:26)
[2023-06-11] MEDS: bisacodyL 10 MG SUPP PR STA (14:21)
--- NOTE | 2023-06-11 17:20 | Hospitalist Progress Note ---
Date of Service June 11, 2023 Assessment & Plan (1) Closed fracture of neck of left femur: Plan: Age-related osteoporosis with possible pathological fracture Secondary to mechanical fall. Orthopedics consult-appreciating input and recommendation Hold Eliquis for now in anticipation of procedure. Last dose was 8 PM last night. IV heparin while Eliquis on hold Recommend holding IV heparin 6 hours before surgery. Will have left anterior hip arthroplasty today Pain medications PT and OT evaluation following the procedure Status post left anterior hip arthroplasty on 06/07/2023 She has been having some pain with movement but otherwise stable Pain is reasonably controlled-has been getting physical therapy Remains stable medically to be Will monitor CBC and PRP tomorrow before discharge Could not make out any urine Bladder scan revealed to be more than 500 mL on 2 occasions Right straight cath once Now has a Ding Likely DC Ding before transfer Has Ding in place-will DC Ding tomorrow morning Ding catheter has been Acceptable risk for cardiac complications resulting from prospective procedure Revised Cardiac Risk Index (RCRI): 1. High-risk type of surgery (examples include vascular and any open intraperitoneal or intrathoracic procedures). No 2. History of ischemic heart disease (history of myocardial infarction or positive exercise test, current compliant of chest pain considered to be secondary to myocardial ischemia, use of nitrate therapy, or ECG with pathological Q waves; do not count prior coronary revascularization procedure unless one of the other criteria for ischemic heart disease is present). Yes 3. History of heart failure. No 4. History of cerebrovascular disease. Yes 5. Diabetes mellitus requiring treatment with insulin. No 6. Preoperative serum creatinine >2.0. No Pt has revised cardiac index score of 2 points. (Class III Risk.) 10.1 % 30-day risk of , [place], or cardiac arrest. Moderate risk for cardiac complications if surgery recommended by Orthopedics and patient/family agreeable to attendant procedural benefits and risks.. Hypertensive urgency secondary to above Will continue home medications Additional medications as needed to control blood pressure Blood pressure seems to be at high level at 158/78 We will monitor CAD status post stent, stable except for elevated BP concerns on outpatient cardiology visit last month, no inducible ischemia on nuclear stress test February 2023 History PVD status post surgery Denies any chest pain, palpitation or shortness of breath DM2 diet-controlled, well-controlled as of recent hemoglobin A1c of 5.06 January 2023 ISS BG goal 1 10-1 40, carb count coverage She does not like to get the insulin shot Will hold that for now but she was strongly advised to continue with diabetic diet Will DC insulin-blood sugar is stable Other chronic medical conditions as below: Chronic hyponatremia secondary to SIADH, nephrology recommends 1.5 L fluid restriction at home Hypothyroidism, euthyroid as of recent outpatient TSH Chronic anemia, hemoglobin at baseline history of CVA Hyperlipidemia on statin Rx Mood disorder, stable Past tobacco abuse DVT prophylaxis. history of DVT on Eliquis Low-dose IV heparin-discontinued Full code Patient requests for daughter to be given periodic updates regarding care. Miss Krystin Trujillo, contact #[phone]. Text document was generated using [employer] voice recognition software. It may contain grammatical or spelling errors. Kindly contact undersigned for clarification of any documentation item in question. Likely discharge in a day or 2 Admission and Anticipated Discharge Date Admission Date: June 06, 2023 Subjective 06/07/2023 The patient was seen and examined in medical telemetry unit She will be going for left anterior hip arthroplasty sometime this morning Complains of pain at the left hip with movement but denies any other significant symptoms 06/08/2023 The patient was seen and examined in medical telemetry unit She has been feeling much better and wants to have regular diet Does not like to have insulin subcu Getting physical therapy and awaiting placement Denies any significant symptoms 06/09/2023 The patient was seen and examined in medical telemetry unit She has been feeling much better but could not make any urine She has a Ding catheter right now Out of bed on a chair and denies any acute distress and her symptoms 06/10/2023 The patient was seen and examined in medical floor in presence of the family members She has been stable in chair with minimal pain in the hip Does not want to take any insulin Denies any other significant symptom Awaiting placement 06/11/2023 Patient was seen and examined in medical She has been stable and out of bed on a chair Getting physical therapy and ready to be discharged Review of Systems Review of Systems: All systems reviewed and are unremarkable except as noted below Musculoskeletal: Pain in the left hip with any movement of the left lower extremity Physical Exam Physical Exam: Lying in bed comfortably Constitutional: well developed, well nourished, + ill appearing and + obese Eyes: PERRL, conjunctivae normal, anicteric sclerae ENMT: external ear and nose normal, oropharynx normal Neck: trachea midline, no thyromegaly Respiratory: no respiratory distress Auscultation: + diminished lung sounds and + crackles (Minimal crackles at the bases) Cardiovascular: Rate/Rhythm: regular rate and regular rhythm; not tachycardic Heart Sounds: normal S1, normal S2 and + murmur Extremities: + edema (Trace edema bilaterally) Gastrointestinal (Abdomen): Inspection/Auscultation: normal bowel sounds; abdomen not distended Percussion/Palpation: abdomen soft; abdomen nontender Neurologic: normal touch/pain/proprioception and moves all extremities; no focal motor deficits Psychiatric: A+Ox3, euthymic affect Lymphatic: no cervical or axillary lymphadenopathy Results & Data Results & Data Vital Signs (Past 12 Hours) Vital Signs Temp Pulse Pulse Resp BP Pulse Ox O2 Del Method 06/11/23 15:14 36.7 C 90 16 158/74 H 98 Room Air 06/11/23 12:15 37.0 C 82 16 138/64 98 Room Air 06/11/23 07:50 37.5 C 79 18 150/64 H 98 Room Air Medications Administered Current Inpatient Medications Apixaban (Apixaban 5 Mg Tablet) 5 mg PO BID DAJA Stop: 07/08/23 08:59 Last Admin: 06/11/23 09:03 Dose: 5 mg Aspirin (Aspirin 81 Mg Ectab) 81 mg PO PM DAJA Stop: 07/06/23 20:59 Last Admin: 06/10/23 21:12 Dose: 81 mg Bisacodyl (Bisacodyl 10 Mg Supp) 10 mg [place] DAILY PRN PRN Reason: Constipation Stop: 07/07/23 17:18 Last Admin: 06/11/23 12:26 Dose: 10 mg Dextrose (Dextrose 50% 50 Ml Syringe) 25 - 50 ml IV UD PRN; Protocol PRN Reason: Hypoglycemia Protocol Stop: 07/06/23 06:23 Docusate Sodium (Docusate Sodium 100 Mg Cap) 100 mg PO BID DAJA Stop: 07/07/23 20:59 Last Admin: 06/11/23 09:05 Dose: 100 mg Ezetimibe (Ezetimibe 10 Mg Tab) 10 mg PO QAM DAJA Stop: 07/06/23 08:59 Last Admin: 06/11/23 09:04 Dose: 10 mg Folic Acid (Folic Acid 1 Mg Tab) 1 mg PO DAILY [facility] Stop: 07/06/23 08:59 Last Admin: 06/11/23 09:04 Dose: 1 mg Gabapentin (Gabapentin 100 Mg Cap) 100 mg PO TID DAJA Stop: 07/06/23 08:59 Last Admin: 06/11/23 14:21 Dose: 100 mg Glucagon (Glucagon For Inj 1 Mg Vial) 1 mg SQ UD PRN; Protocol PRN Reason: Hypoglycemia Protocol Stop: 07/06/23 06:23 Glucose (Glucose 10 Tab/Tube) 4 - 8 tab PO UD PRN; Protocol PRN Reason: Hypoglycemia Treatment Stop: 07/06/23 06:23 Glucose (Glucose 40% Gel 15 Gm Tube) 15 - 30 gm PO UD PRN; Protocol PRN Reason: Hypoglycemia Protocol Stop: 07/06/23 06:23 Promethazine HCl 6.25 mg/ (Sodium Chloride) 50.25 mls @ 201 mls/hr IV Q6H PRN PRN Reason: Nausea And Vomiting Stop: 07/06/23 06:22 Insulin Aspart (Insulin Aspart Per Unit Charge) 0 units SC ACHS [facility] Stop: 07/06/23 07:29 Last Admin: 06/11/23 16:50 Dose: Not Given Levothyroxine Sodium (Levothyroxine Sodium 112 Mcg Tablet) 112 mcg PO DAILYBB [facility] Stop: 07/07/23 06:29 Last Admin: 06/11/23 05:49 Dose: 112 mcg Magnesium Chloride (Magnesium Chloride W/Calcium 64mg Delayed Rel Tab) 128 mg PO BID [facility] Stop: 07/07/23 20:59 Last Admin: 06/11/23 09:03 Dose: 128 mg Magnesium Hydroxide (Magnesium Hydroxide Susp 30 Ml Udc) 30 ml PO Q6H PRN PRN Reason: Constipation Stop: 07/07/23 17:18 Metoclopramide HCl (Metoclopramide Hcl Inj 5 Mg/Ml 2 Ml Vial) 10 mg IV Q6H PRN PRN Reason: Nausea And Vomiting Stop: 07/07/23 17:18 Metoprolol Succinate (Metoprolol Succ 25mg Ext Rel Tab) 25 mg PO QAM [facility] Stop: 07/07/23 08:59 Last Admin: 06/11/23 09:03 Dose: 25 mg Miscellaneous (Carbohydrates For Hypoglycemia ) 15 - 30 gm PO UD PRN PRN Reason: Hypoglycemia Protocol Stop: 07/06/23 06:23 Multivitamins (Multivitamin Tab) 1 tab PO QAM [facility] Stop: 07/08/23 08:59 Last Admin: 06/11/23 09:04 Dose: 1 tab Naloxone HCl (Naloxone Hcl 0.4 Mg/1 Ml Vial/Carp) 0.1 mg IV Q5M PRN PRN Reason: Oversedation/Resp Depression Stop: 07/07/23 17:18 Ondansetron HCl (Ondansetron Inj 2 Mg/Ml 2 Ml Vial) 4 mg IV Q6H PRN PRN Reason: Nausea And Vomiting Stop: 07/07/23 17:18 Oxcarbazepine (Oxcarbazepine 150 Mg Tablet) 450 mg PO BID [facility] Stop: 07/06/23 08:59 Last Admin: 06/11/23 09:03 Dose: 450 mg Oxycodone HCl (Oxycodone Hcl Ir 5 Mg Tab (Immediate Release)) 5 mg PO Q4H PRN PRN Reason: Pain Stop: 06/20/23 05:34 Last Admin: 06/10/23 14:21 Dose: 5 mg Pantoprazole Sodium (Pantoprazole 40 Mg Tab) 40 mg PO DAILYBB [facility] Stop: 07/07/23 06:29 Last Admin: 06/11/23 05:49 Dose: 40 mg Pentoxifylline (Pentoxifylline 400mg Ext Rel Tab) 400 mg PO BID [facility] Stop: 07/06/23 08:59 Last Admin: 06/11/23 09:03 Dose: 400 mg Sennosides (Senna 8.6 Mg Tab) 17.2 mg PO HS [facility] Stop: 07/07/23 20:59 Last Admin: 06/10/23 21:12 Dose: 17.2 mg Topiramate (Topiramate 100 Mg Tab) 100 mg PO QID [facility] Stop: 07/06/23 08:59 Last Admin: 06/11/23 12:26 Dose: 100 mg Tramadol HCl (Tramadol Hcl 50 Mg Tablet) 50 mg PO Q6H PRN PRN Reason: Severe Pain (Scale Score 7-10) Stop: 07/07/23 17:18 Last Admin: 06/09/23 08:45 Dose: 50 mg Vitamin D (Cholecalciferol 5,000 Units 125 Mcg Tab) 125 mcg PO DAILY@1200 [facility] Stop: 07/07/23 11:59 Last Admin: 06/11/23 12:26 Dose: 125 mcg
[2023-06-12 06:56] LABS: Basophils # (auto) 0.05 K/uL (0.00-0.20); Basophils % (auto) 0.6 %; Hematocrit (blood only) 22.2 % (37.0-47.0); Hemoglobin 7.3 g/dl (12.0-16.0); Immature Granulocytes # (auto) 0.04 K/uL (0.01-0.20); Immature Granulocytes % (auto) 0.5 %; Lymphocytes # (auto) 1.42 K/uL (1.20-3.40); Lymphocytes % (auto) 16.8 %; Mean Corpuscular Hemoglobin 29.9 pg (25.0-34.0); Mean Corpuscular Hgb Conc 32.9 g/dL (32.0-36.0); Mean Platelet Volume 10.1 fL (9.4-12.4); Monocytes % (auto) 10.6 %; Neutrophils # (auto) 6.05 K/uL (1.40-6.50); Neutrophils % (auto) 71.5 %; Platelet Count 256 K/uL (130-400); RDW Coefficient of Variation 13.6 % (11.5-14.5); RDW Standard Deviation 45.2 fL (36.4-46.3); Red Blood Count 2.44 M/uL (4.20-5.40); White Blood Count 8.46 K/ul (4.8-10.8)
[2023-06-12 07:20] LABS: Polychromasia 1+
[2023-06-12 07:29] LABS: Calcium 8.9 mg/dl (8.6-10.3); Creatinine Clr Calc Pharmacy 36.1 ml/min; Est GFR (African American) 57.6 ml/min; Est GFR (Non-African American) 49.7 ml/min; Potassium 4.1 mmol/L (3.5-5.1)
[2023-06-12] MEDS ORDERED: SODIUM CHLORIDE 0.9% 250 ML IV PRN (11:05)
--- NOTE | 2023-06-12 11:39 | Hospitalist Progress Note ---
Date of Service June 12, 2023 Assessment & Plan (1) Closed fracture of neck of left femur: Plan: Age-related osteoporosis with possible pathological fracture Secondary to mechanical fall. Orthopedics consult-appreciating input and recommendation Hold Eliquis for now in anticipation of procedure. Last dose was 8 PM last night. IV heparin while Eliquis on hold Recommend holding IV heparin 6 hours before surgery. Will have left anterior hip arthroplasty today Pain medications PT and OT evaluation following the procedure Status post left anterior hip arthroplasty on 06/07/2023 She has been having some pain with movement but otherwise stable Pain is reasonably controlled-has been getting physical therapy Remains stable medically to be Will monitor CBC and PRP tomorrow before discharge Hemoglobin dropped to 7.3 and she has been feeling more weak She has history of chronic anemia and current fracture and surgery is making her hemoglobin to go down at 7.3 with symptoms She will be given 1 unit of blood transfusion and H&H will be checked following the Likely discharge this afternoon following blood transfusion Continue PT and OT at the rehab facility Could not make out any urine Bladder scan revealed to be more than 500 mL on 2 occasions Right straight cath once Now has a Ding Likely DC Ding before transfer Has Ding in place-will DC Ding tomorrow morning Ding catheter has been She wanted to have Ding in place today which can be taken out anytime in the facility Acceptable risk for cardiac complications resulting from prospective procedure Revised Cardiac Risk Index (RCRI): 1. High-risk type of surgery (examples include vascular and any open intraperitoneal or intrathoracic procedures). No 2. History of ischemic heart disease (history of myocardial infarction or positive exercise test, current compliant of chest pain considered to be secondary to myocardial ischemia, use of nitrate therapy, or ECG with pathological Q waves; do not count prior coronary revascularization procedure unless one of the other criteria for ischemic heart disease is present). Yes 3. History of heart failure. No 4. History of cerebrovascular disease. Yes 5. Diabetes mellitus requiring treatment with insulin. No 6. Preoperative serum creatinine >2.0. No Pt has revised cardiac index score of 2 points. (Class III Risk.) 10.1 % 30-day risk of , NM, or cardiac arrest. Moderate risk for cardiac complications if surgery recommended by Orthopedics and patient/family agreeable to attendant procedural benefits and risks.. Hypertensive urgency secondary to above Will continue home medications Additional medications as needed to control blood pressure Blood pressure seems to be at high level at 158/78 We will monitor Blood pressure remains stable CAD status post stent, stable except for elevated BP concerns on outpatient cardiology visit last month, no inducible ischemia on nuclear stress test February 2023 History PVD status post surgery Denies any chest pain, palpitation or shortness of breath Denies any chest pain or palpitation or shortness of breath DM2 diet-controlled, well-controlled as of recent hemoglobin A1c of 5.06 January 2023 ISS BG goal 1 10-1 40, carb count coverage She does not like to get the insulin shot Will hold that for now but she was strongly advised to continue with diabetic diet Will DC insulin-blood sugar is stable Other chronic medical conditions as below: Chronic hyponatremia secondary to SIADH, nephrology recommends 1.5 L fluid restriction at home Hypothyroidism, euthyroid as of recent outpatient TSH Chronic anemia, hemoglobin at baseline history of CVA Hyperlipidemia on statin Rx Mood disorder, stable Past tobacco abuse DVT prophylaxis. history of DVT on Eliquis Low-dose IV heparin-discontinued Full code Patient requests for daughter to be given periodic updates regarding care. Miss Krystin Trujillo, contact #[phone]. Text document was generated using [employer] voice recognition software. It may contain grammatical or spelling errors. Kindly contact undersigned for clarification of any documentation item in question. Likely discharge after the blood transfusion this afternoon Admission and Anticipated Discharge Date Admission Date: June 06, 2023 Subjective 06/07/2023 The patient was seen and examined in medical telemetry unit She will be going for left anterior hip arthroplasty sometime this morning Complains of pain at the left hip with movement but denies any other significant symptoms 06/08/2023 The patient was seen and examined in medical telemetry unit She has been feeling much better and wants to have regular diet Does not like to have insulin subcu Getting physical therapy and awaiting placement Denies any significant symptoms 06/09/2023 The patient was seen and examined in medical telemetry unit She has been feeling much better but could not make any urine She has a Ding catheter right now Out of bed on a chair and denies any acute distress and her symptoms 06/10/2023 The patient was seen and examined in medical floor in presence of the family members She has been stable in chair with minimal pain in the hip Does not want to take any insulin Denies any other significant symptom Awaiting placement 06/11/2023 Patient was seen and examined in medical She has been stable and out of bed on a chair Getting physical therapy and ready to be discharged 06/12/2023 The patient was seen and examined in medical floor She has been pale and complains to weakness but no shortness of Has had bowel movement and feeling a lot better She has been getting physical therapy and likely to be discharged when there is a bed for her Review of Systems Review of Systems: All systems reviewed and are unremarkable except as noted below Musculoskeletal: Pain in the left hip with any movement of the left lower extremity Physical Exam Physical Exam: Lying in bed comfortably Constitutional: well developed, well nourished, + ill appearing and + obese Eyes: PERRL, conjunctivae normal, anicteric sclerae ENMT: external ear and nose normal, oropharynx normal Neck: trachea midline, no thyromegaly Respiratory: no respiratory distress Auscultation: + diminished lung sounds and + crackles (Minimal crackles at the bases) Cardiovascular: Rate/Rhythm: regular rate and regular rhythm; not tachycardic Heart Sounds: normal S1, normal S2 and + murmur Extremities: + edema (Trace edema bilaterally) Gastrointestinal (Abdomen): Inspection/Auscultation: normal bowel sounds; abdomen not distended Percussion/Palpation: abdomen soft; abdomen nontender Neurologic: normal touch/pain/proprioception and moves all extremities; no focal motor deficits Psychiatric: A+Ox3, euthymic affect Lymphatic: no cervical or axillary lymphadenopathy Results & Data Results & Data Vital Signs (Past 12 Hours) Vital Signs Temp Pulse Resp BP Pulse Ox O2 Del Method 06/12/23 08:04 37.0 C 91 H 18 151/73 H 97 Room Air Laboratory Results Short CBC 06/12/23 Range/Units 06:28 WBC 8.46 (4.8-10.8) K/ul Hgb 7.3 L (12.0-16.0) g/dl Hct 22.2 L (37.0-47.0) % Plt Count 256 (130-400) K/uL BMP 06/12/23 06:28 Sodium 136 Potassium 4.1 Chloride 109 H Carbon Dioxide 21 BUN 31 H Creatinine 1.07 Glucose 94 Calcium 8.9 Medications Administered Current Inpatient Medications Apixaban (Apixaban 5 Mg Tablet) 5 mg PO BID [facility] Stop: 07/08/23 08:59 Last Admin: 06/12/23 08:08 Dose: 5 mg Aspirin (Aspirin 81 Mg Ectab) 81 mg PO PM [facility] Stop: 07/06/23 20:59 Last Admin: 06/11/23 21:10 Dose: 81 mg Bisacodyl (Bisacodyl 10 Mg Supp) 10 mg ND DAILY PRN PRN Reason: Constipation Stop: 07/07/23 17:18 Last Admin: 06/11/23 12:26 Dose: 10 mg Dextrose (Dextrose 50% 50 Ml Syringe) 25 - 50 ml IV UD PRN; Protocol PRN Reason: Hypoglycemia Protocol Stop: 07/06/23 06:23 Docusate Sodium (Docusate Sodium 100 Mg Cap) 100 mg PO BID [facility] Stop: 07/07/23 20:59 Last Admin: 06/12/23 08:09 Dose: 100 mg Ezetimibe (Ezetimibe 10 Mg Tab) 10 mg PO QAM [facility] Stop: 07/06/23 08:59 Last Admin: 06/12/23 08:07 Dose: 10 mg Folic Acid (Folic Acid 1 Mg Tab) 1 mg PO DAILY [facility] Stop: 07/06/23 08:59 Last Admin: 06/12/23 08:07 Dose: 1 mg Gabapentin (Gabapentin 100 Mg Cap) 100 mg PO TID [facility] Stop: 07/06/23 08:59 Last Admin: 06/12/23 08:07 Dose: 100 mg Glucagon (Glucagon For Inj 1 Mg Vial) 1 mg SQ UD PRN; Protocol PRN Reason: Hypoglycemia Protocol Stop: 07/06/23 06:23 Glucose (Glucose 10 Tab/Tube) 4 - 8 tab PO UD PRN; Protocol PRN Reason: Hypoglycemia Treatment Stop: 07/06/23 06:23 Glucose (Glucose 40% Gel 15 Gm Tube) 15 - 30 gm PO UD PRN; Protocol PRN Reason: Hypoglycemia Protocol Stop: 07/06/23 06:23 Promethazine HCl 6.25 mg/ (Sodium Chloride) 50.25 mls @ 201 mls/hr IV Q6H PRN PRN Reason: Nausea And Vomiting Stop: 07/06/23 06:22 Sodium Chloride (Nss) 250 mls @ 15 mls/hr IV .[id number] PRN PRN Reason: For Transfusion Duration Stop: 06/12/23 21:06 Insulin Aspart (Insulin Aspart Per Unit Charge) 0 units SC ACHS [facility] Stop: 07/06/23 07:29 Last Admin: 06/12/23 07:57 Dose: Not Given Levothyroxine Sodium (Levothyroxine Sodium 112 Mcg Tablet) 112 mcg PO DAILYBB [facility] Stop: 07/07/23 06:29 Last Admin: 06/12/23 05:42 Dose: 112 mcg Magnesium Chloride (Magnesium Chloride W/Calcium 64mg Delayed Rel Tab) 128 mg PO BID [facility] Stop: 07/07/23 20:59 Last Admin: 06/12/23 08:08 Dose: 128 mg Magnesium Hydroxide (Magnesium Hydroxide Susp 30 Ml Udc) 30 ml PO Q6H PRN PRN Reason: Constipation Stop: 07/07/23 17:18 Metoclopramide HCl (Metoclopramide Hcl Inj 5 Mg/Ml 2 Ml Vial) 10 mg IV Q6H PRN PRN Reason: Nausea And Vomiting Stop: 07/07/23 17:18 Metoprolol Succinate (Metoprolol Succ 25mg Ext Rel Tab) [facility] [place] Stop: 07/07/23 08:59 Last Admin: 06/12/23 08:07 Dose: 25 mg Miscellaneous (Carbohydrates For Hypoglycemia ) 15 - 30 gm PO UD PRN PRN Reason: Hypoglycemia Protocol Stop: 07/06/23 06:23 Multivitamins (Multivitamin Tab) 1 tab PO [facility] Stop: 07/08/23 08:59 Last Admin: 06/12/23 08:07 Dose: 1 tab Naloxone HCl (Naloxone Hcl 0.4 Mg/1 Ml Vial/Carp) 0.1 mg IV Q5M PRN PRN Reason: Oversedation/Resp Depression Stop: 07/07/23 17:18 Ondansetron HCl (Ondansetron Inj 2 Mg/Ml 2 Ml Vial) 4 mg IV Q6H PRN PRN Reason: Nausea And Vomiting Stop: 07/07/23 17:18 Oxcarbazepine (Oxcarbazepine 150 Mg Tablet) 450 mg PO BID [facility] Stop: 07/06/23 08:59 Last Admin: 06/12/23 08:08 Dose: 450 mg Oxycodone HCl (Oxycodone Hcl Ir 5 Mg Tab (Immediate Release)) 5 mg PO Q4H PRN PRN Reason: Pain Stop: 06/20/23 05:34 Last Admin: 06/12/23 01:45 Dose: 5 mg Pantoprazole Sodium (Pantoprazole 40 Mg Tab) 40 mg PO DAILYBB [facility] Stop: 07/07/23 06:29 Last Admin: 06/12/23 05:42 Dose: 40 mg Pentoxifylline (Pentoxifylline 400mg Ext Rel Tab) 400 mg PO BID [facility] Stop: 07/06/23 08:59 Last Admin: 06/12/23 08:08 Dose: 400 mg Sennosides (Senna 8.6 Mg Tab) 17.2 mg PO HS [facility] Stop: 07/07/23 20:59 Last Admin: 06/11/23 21:12 Dose: 17.2 mg Topiramate (Topiramate 100 Mg Tab) 100 mg PO QID [facility] Stop: 07/06/23 08:59 Last Admin: 06/12/23 08:08 Dose: 100 mg Tramadol HCl (Tramadol Hcl 50 Mg Tablet) 50 mg PO Q6H PRN PRN Reason: Severe Pain (Scale Score 7-10) Stop: 07/07/23 17:18 Last Admin: 06/09/23 08:45 Dose: 50 mg Vitamin D (Cholecalciferol 5,000 Units 125 Mcg Tab) 125 mcg PO DAILY@1200 [facility] Stop: 07/07/23 11:59 Last Admin: 06/11/23 12:26 Dose: 125 mcg
[2023-06-12 18:05] LABS: Hematocrit (blood only) 26.1 % (37.0-47.0); Hemoglobin 8.7 g/dl (12.0-16.0)
[2023-06-13 11:02] LABS: Hematocrit (blood only) 27.1 % (37.0-47.0); Hemoglobin 8.9 g/dl (12.0-16.0)
--- NOTE | 2023-06-13 12:00 | Hospitalist Progress Note ---
Date of Service June 13, 2023 Assessment & Plan Admission and Anticipated Discharge Date Admission Date: June 06, 2023 Results & Data Results & Data Vital Signs (Past 12 Hours) Vital Signs Temp Pulse Resp BP Pulse Ox O2 Del Method 06/13/23 07:26 36.6 C 72 18 153/65 H 98 Room Air
--- NOTE | 2023-06-13 14:19 | Discharge Summary ---
Discharge Summary Date of Service June 13, 2023 Notes For Next Care Provider Medication Changes From Visit please refer to medical reconciliation form Admission HPI Per Admitting Provider History obtained from patient, family, and records. Medical history significant for CAD status post stent, PVD status post surgery, history of CVA, hypertension, hyperlipidemia, history of DVT on Eliquis, DM2 diet-controlled, hypothyroidism, SIADH, chronic hyponatremia, chronic anemia (baseline hemoglobin of 11), GERD, chronic LE venous stasis ulcer, mood disorder, past tobacco abuse. Last confinement January 2023 for hyponatremia. Recent ER visit 9 days ago for fall secondary to loss of balance. Patient fell on her left side. No LOC, achy left hip pain noted. No fractures noted on imaging. Patient discharged home. Worsening left hip pain despite outpatient trochanteric bursa lidocaine/steroid injection 2 days ago. Patient brought to ER for evaluation. Initial SBP 180s. Patient denies headache, chest pain, SOB. 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 Baseline Functionality : Still able to do housework at home without rest/exertional chest pain, S OB prior to injury Admission Exam Per Admitting Provider GENERAL: Slightly uncomfortable, slightly anxious, obese, pleasant, no respiratory distress SKIN: Pallor, warm HEENT: Pale palpebral conjunctivae, no ptosis, dry buccal mucosa NECK : Supple, no tenderness CHEST : Decreased breath sounds, no tenderness HEART : RRR, no obvious murmurs ABDOMEN: Some distention, nontender EXTREMITIES : Minimal LE swelling, left hip rotation with tenderness NEUROLOGIC : Coherent, no facial asymmetry, mild hearing impairment, gait and stance not assessed Principal Dx & Hospital Course #1 = Principal Diagnosis (1) Closed fracture of neck of left femur: per Dr. Mulligan's notes with addendum: Age-related osteoporosis with possible pathological fracture Secondary to mechanical fall. Orthopedics consult-appreciating input and recommendation Hold Eliquis for now in anticipation of procedure. Last dose was 8 PM last night. IV heparin while Eliquis on hold Recommend holding IV heparin 6 hours before surgery. Will have left anterior hip arthroplasty today Pain medications PT and OT evaluation following the procedure Status post left anterior hip arthroplasty on 06/07/2023 She has been having some pain with movement but otherwise stable Pain is reasonably controlled-has been getting physical therapy Remains stable medically to be Will monitor CBC and PRP tomorrow before discharge Hemoglobin dropped to 7.3 and she has been feeling more weak She has history of chronic anemia and current fracture and surgery is making her hemoglobin to go down at 7.3 with symptoms She will be given 1 unit of blood transfusion and H&H will be checked following the Likely discharge this afternoon following blood transfusion Continue PT and OT at the rehab facility 06/13 Hg stable now at 8.9 monitor CBC closely back on Eliquis 5mg BID ff up with Ortho in 1 week Could not make out any urine Bladder scan revealed to be more than 500 mL on 2 occasions Right straight cath once Now has a Ding Likely DC Ding before transfer Has Ding in place-will DC Ding tomorrow morning Ding catheter has been She wanted to have Ding in place today which can be taken out anytime in the facility Hypertensive urgency secondary to above Will continue home medications Additional medications as needed to control blood pressure Blood pressure seems to be at high level at 158/78 We will monitor Blood pressure remains stable CAD status post stent, stable except for elevated BP concerns on outpatient cardiology visit last month, no inducible ischemia on nuclear stress test February 2023 History PVD status post surgery Denies any chest pain, palpitation or shortness of breath Denies any chest pain or palpitation or shortness of breath DM2 diet-controlled, well-controlled as of recent hemoglobin A1c of 5.06 January 2023 ISS BG goal 1 10-1 40, carb count coverage She does not like to get the insulin shot Will hold that for now but she was strongly advised to continue with diabetic diet Will DC insulin-blood sugar is stable Other chronic medical conditions as below: Chronic hyponatremia secondary to SIADH, nephrology recommends 1.5 L fluid restriction at home Hypothyroidism, euthyroid as of recent outpatient TSH Chronic anemia, hemoglobin at baseline history of CVA Hyperlipidemia on statin Rx Mood disorder, stable Past tobacco abuse DVT prophylaxis. history of DVT on Eliquis Full code Discharge Exam General- oriented x 3, not in distress, speaks in sentences with no effort or accessory muscle use Eyes- anicteric Neck- no JVD Lungs- clear breath sounds bilaterally, no rales/wheezes Heart- normal rate, regular rhythm; no murmurs Abdomen- normal bowel sounds, nondistended, soft, nontender Extremities- no pretibial edema, no calf tenderness Neuro- alert, oriented x 3; no gross focal neurologic deficits Skin- warm & dry Updated Medication List Medication Instructions Recorded Confirmed Type aspirin 81 mg tablet,delayed 81 mg PO PM 10/20/22 06/06/23 History release atorvastatin 80 mg tablet 80 mg PO PM 10/20/22 06/06/23 History ezetimibe 10 mg tablet 10 mg PO QAM 10/20/22 06/06/23 History icosapent ethyl 1 gram capsule 2 g PO BIDM 10/20/22 06/06/23 History levothyroxine 112 mcg tablet 112 mcg PO DAILYBB 10/20/22 06/06/23 History metoprolol succinate 25 mg 25 mg PO QAM 10/20/22 06/06/23 History tablet,extended release 24 hr omeprazole 40 mg capsule,delayed 40 mg PO DAILYBB 10/20/22 06/06/23 History release topiramate 100 mg tablet 100 mg PO QID 10/20/22 06/06/23 History apixaban 5 mg tablet (Eliquis) 5 mg PO BID 12/14/22 06/06/23 History cholecalciferol (vitamin D3) 125 125 mcg PO .NOON 12/14/22 06/06/23 History mcg (5,000 unit) tablet (Vitamin D3) oxcarbazepine 150 mg tablet See Rx Instructions .Route .COMPLEX 12/14/22 06/06/23 History (Trileptal) oxcarbazepine 300 mg tablet See Rx Instructions .Route .COMPLEX 12/14/22 06/06/23 History (Trileptal) folic acid 1 mg tablet 1 mg PO DAILY 04/04/23 06/06/23 History furosemide 20 mg tablet 30 mg PO DAILY 04/04/23 06/06/23 History gabapentin 100 mg capsule 100 mg PO TID 04/04/23 06/06/23 History magnesium chloride 64 mg 128 mg PO BID 04/04/23 06/06/23 History (magnesium chloride) tablet,delayed release pentoxifylline 400 mg 400 mg PO BID 04/04/23 06/06/23 History tablet,extended release tramadol 50 mg tablet 50 mg PO Q6H PRN Severe Pain 06/06/23 06/06/23 History (Scale Score 7-10) docusate sodium 100 mg capsule 100 mg PO BID 14 days #28 caps 06/13/23 Rx oxycodone 5 mg tablet 5 mg PO Q4H PRN pain 7 days #10 06/13/23 Rx tabs sennosides 8.6 mg tablet (Senokot) 17.2 mg (2 x 8.6 mg) PO HS 14 days 06/13/23 Rx #28 tabs Hospital Stay Data Consultations 06/06/23 05:28 ED Decision to Admit Stat 06/06/23 08:33 Consult Orthopedic Surgery Routine Procedures Performed Operation Date: 06/07/23 07:00 Actual Procedures p Left Anterior Hip Arthroplasty-Cemented - Freddy Herrera MD Diagnostic Imagining Performed Laboratory Results WBC 8.46 K/ul (4.8-10.8) 06/12/23 06:28 RBC 2.44 M/uL (4.20-5.40) L 06/12/23 06:28 Hgb 8.9 g/dl (12.0-16.0) L 06/13/23 10:39 Hct 27.1 % (37.0-47.0) L 06/13/23 10:39 MCV 91.0 fL (80.0-100.0) 06/12/23 06:28 MCH 29.9 pg (25.0-34.0) 06/12/23 06:28 MCHC 32.9 g/dL (32.0-36.0) 06/12/23 06:28 RDW Std Deviation 45.2 fL (36.4-46.3) 06/12/23 06:28 RDW Coeff of Mine 13.6 % (11.5-14.5) 06/12/23 06:28 Plt Count 256 K/uL (130-400) 06/12/23 06:28 MPV 10.1 fL (9.4-12.4) 06/12/23 06:28 Immature Gran % (Auto) 0.5 % 06/12/23 06:28 Neut % (Auto) 71.5 % 06/12/23 06:28 Lymph % (Auto) 16.8 % 06/12/23 06:28 [place] % (Auto) 10.6 % 06/12/23 06:28 Eos % (Auto) 0.0 % 06/12/23 06:28 Baso % (Auto) 0.6 % 06/12/23 06:28 Neut # (Auto) 6.05 K/uL (1.40-6.50) 06/12/23 06:28 Lymph # (Auto) 1.42 K/uL (1.20-3.40) 06/12/23 06:28 [place] # (Auto) 0.90 K/uL (0.11-0.59) H 06/12/23 06:28 Eos # (Auto) 0.00 K/uL (0.00-0.50) 06/12/23 06:28 Baso # (Auto) 0.05 K/uL (0.00-0.20) 06/12/23 06:28 Immature Gran # (Auto) 0.04 K/uL (0.01-0.20) 06/12/23 06:28 Polychromasia 1+ 06/12/23 06:28 PT 11.0 Seconds (9.0-12.0) 06/06/23 08:21 INR 1.0 (0.9-1.1) 06/06/23 08:21 APTT 28 Seconds (21-31) 06/06/23 03:24 PTT Ratio 1.0 06/06/23 03:24 Heparin Anti-Xa, Unfract 0.66 IU/ml (0.3-0.7) 06/06/23 14:58 Sodium 136 mmol/L (136-145) 06/12/23 06:28 Potassium 4.1 mmol/L (3.5-5.1) 06/12/23 06:28 Chloride 109 mmol/L (98-107) H 06/12/23 06:28 Carbon Dioxide 21 mmol/L (21-32) 06/12/23 06:28 Anion Gap 6 (3-11) 06/12/23 06:28 BUN 31 mg/dl (6-23) H 06/12/23 06:28 Creatinine 1.07 mg/dl (0.6-1.2) 06/12/23 06:28 Est Cr Clr Drug Dosing 36.1 ml/min 06/12/23 06:28 Est GFR ( Amer) 57.6 ml/min 06/12/23 06:28 Est GFR (Non-Af Amer) 49.7 ml/min 06/12/23 06:28 BUN/Creatinine Ratio 29.0 (10-20) H 06/12/23 06:28 Glucose 94 mg/dl (70-99(Fasting)) 06/12/23 06:28 POC Glucose 114 mg/dl (70-99) H 06/13/23 11:52 Calcium 8.9 mg/dl (8.6-10.3) 06/12/23 06:28 Magnesium 1.5 mg/dl (1.7-2.4) L 06/08/23 06:43 Troponin I High Sens 10.9 pg/ml (0-14) 06/06/23 03:24 Blood Type A Positive 06/12/23 11:24 Antibody Screen NEGATIVE 06/12/23 11:24 Crossmatch See Detail 06/12/23 11:[address] 06/06/23 04:11 CR Exam(s): CT PELVIS Without Contrast EXAM: CT Pelvis Without Intravenous Contrast CLINICAL HISTORY: Reason for exam: FELL PAIN AT LEFT SIDE OF PELVIS EVAL FOR FX.fell a few days ago, pain at left side most TECHNIQUE: Axial computed tomography images of the pelvis without intravenous contrast. CTDI is 30.64 mGy and DLP is 916.85 mGy-cm. Automated exposure control was utilized for the study. A dose lowering technique was utilized adhering to the principles of ALARA. COMPARISON: No relevant prior studies available. FINDINGS: Bowel: Colonic diverticulosis. No obstruction. No mucosal thickening. Appendix: No findings to suggest acute appendicitis. Intraperitoneal space: Unremarkable. No free air. No significant fluid collection. Bladder: Unremarkable. No stones. Reproductive: Unremarkable as visualized. Bones/joints: Acute impacted left femoral neck fracture with mild varus angulation. Consider orthopedics consultation. Chronic fracture of the right sacral ala extending to the right SI joint. Partially visualized fusion changes within the lumbar spine extending to S1. No dislocation. Soft tissues: Unremarkable. Vasculature: Partially visualized left SFA bypass. Atherosclerotic disease. Lymph nodes: Unremarkable. No enlarged lymph nodes. IMPRESSION: 1. Acute impacted left femoral neck fracture with mild varus angulation. Consider orthopedics consultation. 2. Chronic fracture of the right sacral ala extending to the right SI joint. 3. Colonic diverticulosis. Communications: Verify Receipt Electronically signed by: Stoney Trinidad MD 06/06/23 05:26 AM Chest X-Ray 06/06/23 05:38 XR chest 1V portable CLINICAL HISTORY: preop, hx tobacco abuse TECHNIQUE: Single frontal radiograph of the chest was obtained. Comparison: Comparison is made to chest radiograph 12/14/2022 FINDINGS: No lines and tubes are seen. Cardiomegaly is noted. The aortic arch is calcified. The lungs are clear. No evidence of pleural effusion or pneumothorax. IMPRESSION: No acute chest disease. ACT 112: Negative or not required by law. Electronically signed by: Valeriy Montoya M.D. 06/06/2023 7:52 AM Hip/Pelvis X-Ray 06/06/23 12:57 SINGLE VIEW PELVIS; 2 VIEWS LEFT HIP CLINICAL HISTORY: Left hip pain. FINDINGS: AP view of the pelvis with AP and crosstable lateral views of the left hip are compared to study dated 12/14/2022. The skeletal structures are osteopenic. There is an impacted and mildly subcapital fracture of the left femur. Overlying soft tissue edema is noted. No additional fractures seen involving the right hip or the bony pelvis. Mild to moderate degenerative changes noted in the hip joints. Degenerative sclerosis is noted in the sacroiliac joints. Fusion hardware is seen at the lumbosacral junction. A Ding catheter is in place. There is atherosclerotic calcification of the femoral arteries. IMPRESSION: Subcapital fracture of the left proximal femur. Electronically signed by: Manoj Burns M.D. 06/06/2023 4:25 PM Hip X-Ray 06/07/23 00:00 FL hip LT 1V CLINICAL HISTORY: LEFT ANTERIOR TOTAL HIP ARTHROPLASTY COMPARISON STUDY: None. FLUOROSCOPY TIME: 8 seconds. FLUOROSCOPY IMAGES: 2 Ka,r: 1.1 mGy FINDINGS: There is a left total hip arthroplasty. The hardware is intact. No fracture or dislocation. IMPRESSION: Fluoroscopic assistance as above. ACT 112: Negative or not required by law. Electronically signed by: Srini Serna M.D. 06/07/2023 5:25 PM Pending Results Patient Have Any Pending Studies at Discharge: No Discharge Instructions Given to Patient (Per Discharging Provider) Please refer to accompanying hospital discharge summary. Total Time Total Time Spent Total Time Spent (In Minutes): > 30 minutes
== END 2023-06-13 15:18 | DRG 522 ==
LOC: ED 02:34 → EDINP 06:21 → SUATTDRO 06:21 → 2N 15:22 → 3W 06-09 14:26